=== PATIENT | male | born 1940 | race Hispanic/Latino ===

== ENCOUNTER 2017-08-10 02:06 | Inpatient (IN) | payer MEDICARE ==
[~2017-08-10] VITALS: Ht 162.6 cm; Wt 78.0 kg
[~2017-08-10 02:06] MED LIST: ASA81 MG PO; COUMADIN1 MG PO; FLAGYL500 MG PO; Z.0.COUMADIN5 MG PO; Z.0.ENALAPRIL MALEA2 PO; Z.0.GLYBURIDE2.5 MG PO; Z.0.IBUPROFEN600 MG PO; Z.0.LOVASTATIN10 MG PO
[2017-08-10 02:47] LABS: BASOPHILS # (AUTO) 0.1 (0.0-0.1); BASOPHILS % 0.3 % (0.0-1.0); EOSINOPHILS # (AUTO) 0.3 (0.0-0.4); EOSINOPHILS % 1.5 % (0.0-6.0); HEMATOCRIT 25.6 % (38.2-49.6); HEMOGLOBIN 8.5 g/dL (14.0-18.0); LYMPHOCYTES # (AUTO) 13.9 (1.0-3.2); LYMPHOCYTES % 75.6 % (18.0-39.1); MEAN CORPUSCULAR HEMOGLOBIN 29.6 pg (28-32); MEAN CORPUSCULAR HGB CONC 33.2 g/dL (31-35); MEAN CORPUSCULAR VOLUME 89.2 fL (81-99); MONOCYTES # (AUTO) 0.6 (0.2-0.8); MONOCYTES % 3.2 % (4.4-11.3); NEUTROPHILS # (AUTO) 3.5 (2.1-6.9); NEUTROPHILS % 19.3 % (38.7-80.0); PLATELET COUNT 170 x10e3/uL (140-360); RED BLOOD COUNT 2.87 x10e6/uL (4.3-5.7); RED CELL DISTRIBUTION WIDTH 14.2 % (11.7-14.4)
[2017-08-10 02:57] LABS: INR 1.99; PROTHROMBIN TIME 23.7 seconds (11.9-14.5)
[2017-08-10 02:58] LABS: PARTIAL THROMBOPLASTIN TIME 30.7 seconds (23.8-35.5)
[2017-08-10 03:03] LABS: ANISOCYTOSIS SLIGHT; LYMPHOCYTES % (MANUAL) 85 % (19-48); MONOCYTES % (MANUAL) 1 % (3.4-9.0); NEUTROPHILS % (MANUAL) 14 % (40-74); PLATELET ESTIMATE ADEQUATE; PLATELET MORPHOLOGY COMMENT NORMAL; RBC MORPHOLOGY COMMENT NORMAL
[2017-08-10 03:09] LABS: CREATINE KINASE MB 5.1 ng/mL (0.00-5.00)
[2017-08-10 03:16] LABS: ALBUMIN 3.5 g/dL (3.5-5.0); ALBUMIN/GLOBULIN RATIO 0.7 (0.8-2.0); ANION GAP 15.2 mmol/L (8-16); CALCIUM 8.3 mg/dL (8.4-10.2); CREATININE, SERUM 4.89 mg/dL (0.72-1.25); MAGNESIUM 1.9 MG/DL (1.3-2.1); POTASSIUM 4.2 mmol/L (3.5-5.1)
[2017-08-10 04:54] LABS: BILIRUBIN,URINE NEGATIVE (NEGATIVE); KETONES,URINE NEGATIVE (NEGATIVE); LEUKOCYTE ESTERASE ,URINE NEGATIVE (NEGATIVE); NITRITE,URINE NEGATIVE (NEGATIVE); URINE UROBILINOGEN 0.2 mg/dL (0.2 - 1)
[2017-08-10 04:59] LABS: PROTEIN,URINE DIPSTICK 2+ (NEGATIVE)
[2017-08-10 05:00] LABS: CLARITY,URINE CLEAR (CLEAR); COLOR,URINE YELLOW (YELLOW)
[2017-08-10 05:05] LABS: BACTERIA,URINE FEW /HPF; EPITHELIAL CELLS,URINE RARE /LPF; WBC,URINE (MAN) 0-5 /HPF (0-5)
--- NOTE | 2017-08-10 05:07 | Diagnostic Imaging Report ---
EXAM: CHEST 2 VIEWS, PA and lateral DATE: 08/10/2017 3:36 AM Time stamp on exam: 0413 hours INDICATION: Rash to the legs COMPARISON: PA and lateral view of the chest November 16, 2011 FINDINGS: LINES/TUBES: None LUNGS: No consolidations or edema. PLEURA: No effusions or pneumothorax. HEART AND MEDIASTINUM: Normal size and contour. BONES AND SOFT TISSUES: No acute findings. IMPRESSION: No acute thoracic abnormality. Signed by: Dr. Katharine Sesay M.D. on 08/10/2017 5:03 AM
[2017-08-10] MEDS ORDERED: ONDANSETRON HCL INJ 2 MG/ML VIAL IV PRN (05:30)
[2017-08-10] MEDS ORDERED: SODIUM CHLORIDE 0.9% 1000ML 1,000 ML IV ONE (05:30)
[2017-08-10] MEDS ORDERED: HYDROXYZINE HCL 25 MG TAB PO PRN (05:30)
[2017-08-10] MEDS ORDERED: FLOMAX0.4 MG PO (06:11)
[2017-08-10] MEDS ORDERED: PHYTONADIONE 10 MG/ML AMP SQ ONE (11:00)
[2017-08-10] MEDS ORDERED: DIATRIZOATE MEGL/DIATRIZOA SOD 120 ML BTL PO ONE (11:03)
--- NOTE | 2017-08-10 11:13 | Diagnostic Imaging Report ---
PROCEDURE:US RETROPERITONEAL ( KIDNEY ). COMPARISON:CT abdomen and pelvis 10/31/2016. INDICATIONS:Renal Failure TECHNIQUE: Francis-scale and color sonographic images of the bilateral kidneys and bladder where obtained in transverse and longitudinal planes. FINDINGS: RIGHT KIDNEY: 11.4 cm in length, cortical thickness 1.4 cm Cysts: None Solid masses: None Stones: None Hydronephrosis: None Echogenicity: Normal renal cortical echogenicity. LEFT KIDNEY: 10.4 cm in length, cortical thickness 1.5 cm. Cysts: None Solid masses: None Stones: None Hydronephrosis: None Echogenicity: Normal renal cortical echogenicity. Bladder: Unremarkable. Right and left ureteral jets are identified. Prostate: 3.3 x 2.5 x 4.3 cm, estimated volume 18.5 cc CONCLUSION: Unremarkable sonographic appearance of the kidneys. Dictated by: Nehemias Vail M.D. on 08/10/2017 at 11:21 Electronically approved by: Nehemias Vail M.D. on 08/10/2017 at 11:21
--- NOTE | 2017-08-10 12:35 | Diagnostic Imaging Report ---
PROCEDURE: CT ABDOMEN AND PELVIS WITHOUT CONTRAST TECHNIQUE: The abdomen and pelvis were scanned utilizing a multidetector helical scanner from the diaphragm to the lesser trochanter after the oral administration of Gastroview. No intravenous contrast was administered per referring physician request. Coronal and sagittal multiplanar reformations were obtained. COMPARISON: 10/31/16. INDICATIONS: R/O LYMPHOMA FINDINGS: ABSENCE OF INTRAVENOUS CONTRAST DECREASES SENSITIVITY FOR DETECTION OF FOCAL LESIONS AND VASCULAR PATHOLOGY. LOWER THORAX: Juxtapleural reticular opacities compatible with subsegmental atelectasis in the lung bases. No pleural or pericardial effusion. HEPATOBILIARY: Subcentimeter hypoattenuating lesion in hepatic segment 2, too small to further characterize though likely represent a small cyst. Similar lesion is noted in segment 3. Both are unchanged compared to the prior examination. No additional focal hepatic lesion or biliary ductal dilatation. The gallbladder is unremarkable. SPLEEN: No focal splenic lesion. The spleen is at the upper limits of normal in size, measuring 13 cm in craniocaudal span, not significantly changed. PANCREAS: No focal masses or ductal dilatation. ADRENALS: No adrenal nodules. KIDNEYS/URETERS: Nonspecific bilateral perinephric fat stranding, unchanged. No hydronephrosis, calculus, or gross mass lesion. PELVIC ORGANS/BLADDER: The prostate is enlarged, measuring 5.8 cm transversely, with mass effect upon the bladder base. PERITONEUM / RETROPERITONEUM: No ascites. No pneumoperitoneum. LYMPH NODES: No pelvic sidewall, retroperitoneal, or mesenteric lymphadenopathy. VESSELS: Limited evaluation without intravenous contrast. Atherosclerotic calcification of the abdominal aorta and major branch vessels without aneurysmal dilatation. 2 renal arteries supply each kidney. GI TRACT: The large bowel is notable for innumerable sigmoid diverticula without wall thickening or nasal colic inflammation. The appendix is normal. There is no small bowel dilatation to suggest obstruction. BONES AND SOFT TISSUES: Bilateral small fat-containing inguinal hernias. Subcutaneous gas and soft tissue stranding in the right lower quadrant subcutaneous region is likely a consequence of insulin or other subcutaneous medication administration. Mild bilateral gynecomastia. No osseous destructive lesions. Multilevel degenerative disc changes and degenerative facet arthropathy of the thoracolumbar spine. Bilateral sacroiliac joint fusion. IMPRESSION: No acute intra-abdominal or pelvic CT abnormalities. No abdominopelvic lymphadenopathy. Borderline nonspecific splenomegaly. The large bowel diverticulosis without evidence of diverticulitis. Atherosclerotic vascular disease. Prostatomegaly. Dictated by: Nehemias Vail M.D. on 08/10/2017 at 12:43 Electronically approved by: Nehemias Vail M.D. on 08/10/2017 at 12:43
[2017-08-10 13:16] LABS: CREATINE KINASE MB 4.1 ng/mL (0.00-5.00)
--- NOTE | 2017-08-10 13:36 | Consultation ---
DATE OF CONSULTATION: August 10, 2017 HISTORY OF PRESENT ILLNESS: A 76-year-old gentleman who is known to our nephrology service clinic patient, who has lost to followup. I saw him first at the [facility], has advanced kidney failure. Presented with a rash on both lower extremity, which is causing significant itch. Renal consulted for significantly elevated BUN, creatinine, and acidosis. White count is 18.3, hemoglobin is 8.5 with a bicarbonate 16, BUN 57, creatinine 5.89, CK 229, troponin-I 0.006. Urinalysis showed 6 to 10 rbc's, 0 to 5 wbc's, but white count is significantly elevated. He does have 85% lymphocytes and his lymphocyte percentage is significantly elevated at 75.6. REVIEW OF SYSTEMS: Patient denies fever, chills, chest pain, shortness of breath. Has a metallic taste in mouth. Very poor appetite. Feeling weak for the last several days. Daughter by bedside who is helping with history. SOCIAL HISTORY: Patient does not smoke or drink. Lives with his . PAST MEDICAL HISTORY: Significant for hypertension, diabetes, and chronic kidney disease stage 4. PHYSICAL EXAMINATION GENERAL: Awake, alert, lying supine. No apparent distress. VITALS: Blood pressure 167/75, pulse rate 73, afebrile. HEAD AND NECK: Cornea clear. Oral mucosa moist. Neck veins flat. LUNGS: Harsh vesicular breath sounds, but relatively clear. HEART: S1, S2 audible. ABDOMEN: Otherwise soft, nontender. SKIN: Lower extremity shows a fracture, which is reddish and some excoriation fisher. No clearcut petechiae purpura, but there are some petechiae noted or what looks like petechiae. No edema. IMPRESSION AND PLAN: Elevated white count, mostly lymphocytosis. This could be viral or this could be a lymphomatous process. I will obtain CT abdomen and pelvis. Advanced kidney failure with distal renal tubular acidosis, likely end-stage renal disease. Dialysis option has already been discussed with Dr. Beauchamp with him in the office. He did not followup thereafter. Discussed with daughter and she agrees. Plan on holding off on Coumadin for a couple of days. Will start p.o. bicarbonate, insert a Mathews, obtain 24-hour urine for creatinine clearance and proteins. Will request pathology to look at the peripheral smear. Will follow up on the CT scan once 24-hour urine creatinine clearance is completed and confirmed. He has got a poor GFR, will initiate dialysis. Job#: [id number] ANU
[2017-08-10] MEDS ORDERED: ETOMIDATE 2 MG/ML 10 ML INJ IV ONE (14:00)
[2017-08-10] MEDS ORDERED: SUCCINYLCHOLINE 200 MG/10 ML SYR IV ONE (14:00)
[2017-08-10 17:20] VITALS: BP 160/83
[2017-08-10] MEDS: SODIUM BICARBONATE 650 MG TAB PO SCH (17:31)
[2017-08-10 17:33] LABS: ALBUMIN 3.1 g/dL (3.5-5.0); BILIRUBIN,DIRECT 0.1 mg/dL (0.0-5.0); CREATININE, SERUM 4.52 mg/dL (0.72-1.25)
[2017-08-10 18:43] VITALS: BP 172/81
[2017-08-10 19:54] LABS: CREATINE KINASE MB 3.2 ng/mL (0.00-5.00)
[2017-08-10 20:27] VITALS: BP 172/81
[2017-08-10 20:59] VITALS: BP 146/76
[2017-08-10 21:40] VITALS: BP 146/76
[2017-08-11 01:41] VITALS: BP 144/76
[2017-08-11 06:25] LABS: BASOPHILS % 0.2 % (0.0-1.0); EOSINOPHILS # (AUTO) 0.2 (0.0-0.4); EOSINOPHILS % 1.7 % (0.0-6.0); LYMPHOCYTES # (AUTO) 10.3 (1.0-3.2); LYMPHOCYTES % 77.6 % (18.0-39.1); MEAN CORPUSCULAR HEMOGLOBIN 29.6 pg (28-32); MEAN CORPUSCULAR HGB CONC 33.3 g/dL (31-35); MEAN CORPUSCULAR VOLUME 88.9 fL (81-99); MONOCYTES # (AUTO) 0.3 (0.2-0.8); MONOCYTES % 2.6 % (4.4-11.3); NEUTROPHILS # (AUTO) 2.4 (2.1-6.9); NEUTROPHILS % 17.7 % (38.7-80.0); PLATELET COUNT 145 x10e3/uL (140-360); RED CELL DISTRIBUTION WIDTH 14.2 % (11.7-14.4)
[2017-08-11 06:56] LABS: ALBUMIN 2.9 g/dL (3.5-5.0); ALBUMIN/GLOBULIN RATIO 0.8 (0.8-2.0); ANION GAP 14.8 mmol/L (8-16); CALCIUM 8.2 mg/dL (8.4-10.2); CREATININE, SERUM 4.86 mg/dL (0.72-1.25); POTASSIUM 4.8 mmol/L (3.5-5.1)
[2017-08-11 07:15] VITALS: BP 144/77
[2017-08-11 07:25] LABS: EOSINOPHILS % (MANUAL) 2 % (0-7); LYMPHOCYTES % (MANUAL) 84 % (19-48); METAMYELOCYTES % (MANUAL) 1 % (0-0); MONOCYTES % (MANUAL) 3 % (3.4-9.0); NEUTROPHILS % (MANUAL) 10 % (40-74)
[2017-08-11 07:26] LABS: ANISOCYTOSIS SLIGHT; PLATELET ESTIMATE SLIGHTLY DECREASED; POIKILOCYTOSIS SLIGHT; RBC MORPHOLOGY COMMENT NORMAL
[2017-08-11 07:27] LABS: PLATELET MORPHOLOGY COMMENT NORMAL
[2017-08-11 08:00] VITALS: BP 144/75
[2017-08-11] MEDS: SODIUM BICARBONATE 650 MG TAB PO SCH ×2 (08:06→16:06)
--- NOTE | 2017-08-11 10:56 | Consultation ---
DATE OF CONSULTATION: August 11, 2017 CONSULTATION REQUESTED BY: Dr. Niesha Sommer PRIMARY CARE PHYSICIAN: Dr. Kei Cunha REASON FOR CONSULTATION: Lymphocytosis. Thank you very kindly, Dr. Sommer and Dr. Cunha, for letting me participate in the care of this very pleasant, 76-year-old male. I have interviewed the patient with assistance from his daughter for translation to Bots[place]an from [place]o. I reviewed his chart and examined the patient. Briefly, he was admitted with a skin rash of a few days' duration, which was really bothering him. In the emergency room, he was also noted to be anemic with elevated creatinine and, hence, was admitted to the hospital. The rash seems to be improving and not as bothersome. He has no history of fever. He did not offer any other specific complaints. However, on review of systems, he stated he is feeling a little bit weak. Also, he has lost a few pounds. He denied any history of bleeding. Denied any history of change in bowel habits. No history of significant skeletal pains. No headache, chest pain, shortness of breath. No urinary complaints. PAST MEDICAL HISTORY: Positive for hypertension, diabetes, hyperlipidemia. The patient also was hospitalized in 2011 with bilateral pulmonary emboli. Venous Doppler studies were negative. He has been on anticoagulation and has been on warfarin ever since. He also was admitted with possible GI bleed a couple of years back and had a colonoscopy where he was found to have polyps. He was told that his renal function was not normal about 4 months back and has been following with nephrology on a regular basis. No history of recurrent infections. PERSONAL HISTORY: He is a nonsmoker. Only drinks 1 or 2 beers occasionally. FAMILY HISTORY: Denied any history of significant medical problems in the family. OCCUPATIONAL HISTORY: He is retired. He worked in the [employer]. PHYSICAL EXAMINATION GENERAL: A moderately obese, well-developed male in no distress at rest. VITAL SIGNS: As recorded in the chart. HEENT: Conjunctivae are pale. There is no icterus. There is no palpable peripheral adenopathy. There is no neck vein distention. LUNGS: Clinically clear. HEART: Heart size appeared within normal limits. Rhythm was regular. ABDOMEN: Obese without palpable visceromegaly. No ascites was noted. EXTREMITIES: Free of edema. There was a rash with scratch fisher mostly on his back and on his legs. It appeared to be fading. No areas of bone tenderness were noted. No focal neurological deficit was noted. LABORATORY STUDIES: Significant for lymphocytosis with admission white count around 18,000, but it has decreased. Hemoglobin in the 8-g range (he has not had blood transfusion at any time). Review of older blood counts revealed that he had lymphocytosis at least in October 2016, but his CBC was normal in September 2013. His globulins are also mildly elevated. IMPRESSION 1. Lymphocytosis, at least present for nearly a year suggesting the possibility of a lymphoproliferative disorder. Will check flow cytometry to confirm. 2. Anemia with normal mean corpuscular volume and red cell distribution width suggesting anemia of chronic disease, possibly related to renal insufficiency. 3. Elevated globulins to be further evaluated with protein electrophoresis and reflex to immunoelectrophoresis. Thank you very kindly for letting me participate in his care. I will follow the patient with you. Job#: [id number]
[2017-08-11 12:00] VITALS: BP 141/74
[2017-08-11 13:44] LABS: CREATININE,URINE RANDOM 58.66 mg/dL (63-166); TOTAL PROTEIN, URINE 101.2 mg/dL (1-14)
[2017-08-11 13:48] LABS: TOTAL PROTEIN 24HR, URINE 2074.6 mg/24hr (50-100)
[2017-08-11 16:00] VITALS: BP 151/77
[2017-08-11 20:00] VITALS: BP 144/75
[2017-08-12] VITALS (7 sets, daily range): BP systolic 133–144; BP diastolic 66–79
[2017-08-12] MEDS: SODIUM BICARBONATE 650 MG TAB PO SCH ×2 (08:20→16:38)
[2017-08-12 10:40] LABS: ANION GAP 12.9 mmol/L (8-16); CREATININE, SERUM 4.88 mg/dL (0.72-1.25); POTASSIUM 3.9 mmol/L (3.5-5.1)
[2017-08-13] VITALS: BP 136/79
[2017-08-13 02:02] VITALS: BP 135/83
[2017-08-13 04:00] VITALS: BP 140/72
[2017-08-13 06:29] LABS: BASOPHILS % 0.2 % (0.0-1.0); EOSINOPHILS # (AUTO) 0.2 (0.0-0.4); EOSINOPHILS % 1.8 % (0.0-6.0); HEMATOCRIT 24.5 % (38.2-49.6); HEMOGLOBIN 8.2 g/dL (14.0-18.0); LYMPHOCYTES % 73.1 % (18.0-39.1); MEAN CORPUSCULAR HEMOGLOBIN 29.6 pg (28-32); MEAN CORPUSCULAR HGB CONC 33.5 g/dL (31-35); MEAN CORPUSCULAR VOLUME 88.4 fL (81-99); MONOCYTES # (AUTO) 0.4 (0.2-0.8); MONOCYTES % 2.7 % (4.4-11.3); NEUTROPHILS % 22.1 % (38.7-80.0); PLATELET COUNT 151 x10e3/uL (140-360); RED BLOOD COUNT 2.77 x10e6/uL (4.3-5.7); RED CELL DISTRIBUTION WIDTH 13.8 % (11.7-14.4)
[2017-08-13 06:59] LABS: ALBUMIN 2.9 g/dL (3.5-5.0); ALBUMIN/GLOBULIN RATIO 0.8 (0.8-2.0); ANION GAP 13.9 mmol/L (8-16); CALCIUM 8.2 mg/dL (8.4-10.2); CREATININE, SERUM 5.01 mg/dL (0.72-1.25); MAGNESIUM 1.8 MG/DL (1.3-2.1); POTASSIUM 3.9 mmol/L (3.5-5.1)
[2017-08-13 08:00] LABS: BLAST CELLS % MANUAL 1; EOSINOPHILS % (MANUAL) 2 % (0-7); LYMPHOCYTES % (MANUAL) 78 % (19-48); MONOCYTES % (MANUAL) 2 % (3.4-9.0); NEUTROPHILS % (MANUAL) 16 % (40-74)
[2017-08-13 08:07] LABS: ANISOCYTOSIS SLIGHT; HYPOCHROMASIA SLIGHT; PLATELET ESTIMATE ADEQUATE; PLATELET MORPHOLOGY COMMENT NORMAL; RBC MORPHOLOGY COMMENT NORMAL
[2017-08-13 08:38] VITALS: BP 83/55
[2017-08-13] MEDS: SODIUM BICARBONATE 650 MG TAB PO SCH (10:56)
[2017-08-13 12:13] VITALS: BP 142/74
[2017-08-13 15:55] VITALS: BP 147/74
== END 2017-08-13 16:56 | disposition home or self-care (01) | DRG 840 ==
LOC: ER 02:06 → ERHOLD 10:08 → MED/SURG2 17:40
PROVIDERS: ADMIT Internal Medicine; ATTEND Internal Medicine
DX: C91.10 Chronic lymphocytic leukemia of B-cell type not having achieved remission (principal); N18.6 End stage renal disease; N17.9 Acute kidney failure, unspecified; E11.22 Type 2 diabetes mellitus with diabetic chronic kidney disease; D63.1 Anemia in chronic kidney disease; N25.89 Other disorders resulting from impaired renal tubular function; I12.0 Hypertensive chronic kidney disease with stage 5 chronic kidney disease or end stage renal disease; Z99.2 Dependence on renal dialysis; L29.9 Pruritus, unspecified; Z86.711 Personal history of pulmonary embolism; Z79.01 Long term (current) use of anticoagulants
CPT/HCPCS: 36415; 71046; 74176; 76770; 80048; 80053; 80076; 81001; 81050; 82550; 82553; 82575; 82728; 83735; 84100; 84156; 84165; 84484; 85025; 85610; 85730; 86334; 86850; 86900; 87040; 87086; 87400; 88184; 88185; 88187; 99284; J3410; J3430; J7030; Q9963

== ENCOUNTER 2018-01-31 20:52 | Emergency (ER) | payer MEDICARE ==
[~2018-01-31] VITALS: Ht 162.6 cm; Wt 78.0 kg
[~2018-01-31 20:52] MED LIST changes: +FLOMAX0.4 MG PO
[2018-01-31 21:42] LABS: BASOPHILS # (AUTO) 0.1 (0.0-0.1); BASOPHILS % 0.3 % (0.0-1.0); EOSINOPHILS # (AUTO) 0.2 (0.0-0.4); EOSINOPHILS % 1.1 % (0.0-6.0); HEMATOCRIT 34.1 % (38.2-49.6); HEMOGLOBIN 11.2 g/dL (14.0-18.0); LYMPHOCYTES # (AUTO) 13.9 (1.0-3.2); LYMPHOCYTES % 74.5 % (18.0-39.1); MEAN CORPUSCULAR HEMOGLOBIN 28.8 pg (28-32); MEAN CORPUSCULAR HGB CONC 32.8 g/dL (31-35); MEAN CORPUSCULAR VOLUME 87.7 fL (81-99); MONOCYTES # (AUTO) 0.5 (0.2-0.8); MONOCYTES % 2.5 % (4.4-11.3); NEUTROPHILS % 21.3 % (38.7-80.0); PLATELET COUNT 156 x10e3/uL (140-360); RED BLOOD COUNT 3.89 x10e6/uL (4.3-5.7); RED CELL DISTRIBUTION WIDTH 18.9 % (11.7-14.4)
[2018-01-31 21:52] LABS: INR 1.08; PROTHROMBIN TIME 13.2 seconds (11.9-14.5)
[2018-01-31 21:53] LABS: PARTIAL THROMBOPLASTIN TIME 24.1 seconds (23.8-35.5)
[2018-01-31 22:01] LABS: ALANINE AMINOTRANSFERASE 45 IU/L (0-55); ALBUMIN 3.5 g/dL (3.5-5.0); ALBUMIN/GLOBULIN RATIO 0.9 (0.8-2.0); ALKALINE PHOSPHATASE 72 IU/L (40-150); ANION GAP 19.3 mmol/L (8-16); BLOOD UREA NITROGEN 50 mg/dL (7-26); BUN/CREATININE RATIO 5 (6-25); CALCIUM 8.7 mg/dL (8.4-10.2); CARBON DIOXIDE 24 mmol/L (22-29); CHLORIDE 99 mmol/L (98-107); CREATINE KINASE 75 IU/L (30-200); CREATININE, SERUM 9.66 mg/dL (0.72-1.25); EST GLOMERULAR FILTRATION RATE 5 ML/MIN (60-); GLUCOSE 138 mg/dL (74-118); POTASSIUM 4.3 mmol/L (3.5-5.1); SODIUM 138 mmol/L (136-145)
--- NOTE | 2018-01-31 23:01 | Diagnostic Imaging Report ---
EXAM: CHEST 2 VIEWS, PA and lateral INDICATION: Hypertension, weakness COMPARISON: PA and lateral view of the chest August 10, 2017 FINDINGS: LINES/TUBES: Interval placement of right internal jugular vein tunneled hemodialysis catheter with the tip at the expected location of the atrial caval junction. LUNGS: No consolidations or edema. PLEURA: No effusions or pneumothorax. HEART AND MEDIASTINUM: Normal size and contour. BONES AND SOFT TISSUES: No acute findings. IMPRESSION: No acute thoracic abnormality. Signed by: Dr. Katharine Sesay M.D. on 01/31/2018 10:58 PM
[2018-01-31 23:12] LABS: CLARITY,URINE CLEAR (CLEAR); COLOR,URINE YELLOW (YELLOW); LEUKOCYTE ESTERASE ,URINE NEGATIVE (NEGATIVE); NITRITE,URINE NEGATIVE (NEGATIVE); PROTEIN,URINE DIPSTICK 2+ (NEGATIVE)
[2018-01-31 23:13] LABS: BACTERIA,URINE RARE /HPF; BILIRUBIN,URINE NEGATIVE (NEGATIVE); EPITHELIAL CELLS,URINE RARE /LPF; KETONES,URINE NEGATIVE (NEGATIVE); MUCUS,URINE RARE (RARE); URINE UROBILINOGEN 0.2 mg/dL (0.2 - 1)
[2018-01-31] MEDS ORDERED: CEFTRIAXONE SOD 1 GM VIAL IV STA (23:25)
[2018-01-31 23:51] VITALS: BP 149/77
== END 2018-02-01 00:11 | disposition home or self-care (01) ==
LOC: ER 20:52
DX: R53.1 Weakness (principal); N30.91 Cystitis, unspecified with hematuria; I10 Essential (primary) hypertension
CPT/HCPCS: 36415; 71046; 80053; 81001; 82550; 82553; 82948; 83735; 84484; 85025; 85610; 85730; 87086; 93005; 99283; J0696

== ENCOUNTER → 2019-01-02 | Outpatient (CLI) | payer MEDICARE ==
[~2019-01-02] MED LIST changes: +IOPAMIDOL 370 MG/ML 200 ML INFUS..BTL INJ ONE; +PREDNISONE10 MG PO; +SODIUM CHLORIDE 0.9% 50ML 50 ML ONE
[2019-01-02 11:40] LABS: CREATININE, SERUM 9.64 mg/dL (0.72-1.25)
--- NOTE | 2019-01-02 12:59 | Diagnostic Imaging Report ---
ADDENDUM #1 ADDENDUM: There is bilateral gynecomastia. Signed by: Dr. Paola Haney MD on 01/02/2019 2:46 PM ORIGINAL REPORT EXAM: CT Chest and Abdomen with contrast INDICATION: Chronic lymphocytic leukemia, anemia. COMPARISON: Report from CT abdomen/pelvis dated 10/31/2016, the images were not available for review at the time of this dictation. TECHNIQUE: Chest and abdomen was scanned utilizing a multidetector helical scanner from the lung apex to the iliac crests after administration of IV contrast. Coronal and sagittal reformations were obtained. Routine protocol was performed. IV CONTRAST: 100 mL of Isovue 370 RADIATION DOSE: Total DLP: 459.5 mGy*cm Dose modulation, iterative reconstruction, and/or weight based adjustment of the mA/kV was utilized to reduce the radiation dose to as low as reasonably achievable. COMPLICATIONS: None FINDINGS: LINES/ TUBES: None. LUNGS AND AIRWAYS: The central airways are patent. Diffuse mild bronchial wall thickening. There is mild biapical pleural-parenchymal opacity, suggestive of prior granulomatous disease. Mild patchy groundglass opacity in the left lower lobe on series 4, image 81 may be infectious or inflammatory. Minimal dependent atelectasis. Scattered tiny bilateral pulmonary nodules, for example a 2 mm subpleural nodule left upper lobe on image 19 and 3 mm nodule opacity along the right major fissure on image 79. There is a 5 mm groundglass nodular opacity in the right lower lobe on image 61. Punctate 2 mm solid nodule in the right lower lobe on image 62. PLEURA: The pleural spaces are clear. HEART AND MEDIASTINUM: Limited evaluation of the thyroid gland secondary to streak artifact. Possible 0.9 cm right thyroid nodule. No mediastinal, hilar or axillary lymphadenopathy. Nonspecific mediastinal lymph nodes, measuring up to 0.7 cm short axis in the right paratracheal region and 0.6 cm in the prevascular region. Nonspecific small right supraclavicular lymph nodes measuring up to 0.5 cm. Mild cardiomegaly. Scattered coronary atherosclerosis. HEPATOBILIARY: Left hepatic lobe cyst. No biliary ductal dilation. The gallbladder is unremarkable. SPLEEN: Mild splenomegaly measuring 14 cm. PANCREAS: No focal masses or ductal dilatation. ADRENALS: No adrenal nodules KIDNEYS/URETERS: Atrophic bilateral kidneys. Nonspecific bilateral perirenal stranding. There is soft tissue fullness versus dilation of the left renal pelvis, measuring up to 1.8 cm on series 2, image 69. GI TRACT: Scattered colonic diverticulosis. No evidence of wall thickening or distension. PELVIC ORGANS/BLADDER: Unremarkable. LYMPH NODES: Mildly prominent retroperitoneal lymph nodes, for example measuring up to 0.8 cm on the left on series 2, image 66. Mildly prominent right common iliac artery lymph node, measuring up to 0.8 cm on image 85. VESSELS: Scattered atherosclerotic calcifications in the abdominal aorta and branch vessels. PERITONEUM / RETROPERITONEUM: No free air or fluid. BONES/SOFT TISSUES: No acute osseous abnormality IMPRESSION: Prominent mediastinal and upper abdominal subcentimeter lymph nodes. Splenomegaly. Findings may reflect malignancy in this patient with leukemia. Small bilateral pulmonary nodules, measuring up to 5 mm in the right lower lobe. A follow-up chest CT may be considered in 12 months. Possible 0.9 cm right thyroid nodule. Thyroid ultrasound may be considered for further evaluation. Soft tissue fullness versus dilation of the left renal pelvis, measuring up to 1.8 cm. Suggest hematuria protocol CT for further evaluation. Signed by: Dr. Paola Haney MD on 01/02/2019 12:56 PM
== END ==
LOC: CT 10:47
PROVIDERS: ATTEND Internal Medicine Hematology & Oncology
DX: C91.10 Chronic lymphocytic leukemia of B-cell type not having achieved remission (principal); D63.1 Anemia in chronic kidney disease; D69.6 Thrombocytopenia, unspecified
CPT/HCPCS: 36415; 71260; 74160; 82565; 84520; Q9967

== ENCOUNTER 2019-01-03 04:39 | Inpatient (IN) | payer MEDICARE ==
[~2019-01-03] VITALS: Ht 162.6 cm; Wt 68.9 kg
[2019-01-03] VITALS (15 sets, daily range): BP systolic 84–132; BP diastolic 50–87
[~2019-01-03 04:39] MED LIST changes: -IOPAMIDOL 370 MG/ML 200 ML INFUS..BTL INJ ONE; -PREDNISONE10 MG PO; -SODIUM CHLORIDE 0.9% 50ML 50 ML ONE
[2019-01-03] MEDS ORDERED: FAMOTIDINE 20 MG/2 ML VIAL IV STA (04:42)
--- OUTSIDE RECORDS SUMMARY | 2019-01-03 04:42 | XMS REPORT | Clinical Summary ---
Author Author [facility] Address Unknown Phone Unavailable Care Team Providers Care Manufacturing Quality Manager Name Role Phone Kei Cunha PCP Allergies No Known Allergies Medications No known medications Active Problems Problem Noted Date ESRD (end stage renal disease) on dialysis 12/31/2017 Social History Date Tobacco Use Types Packs/Day Years Used Never Smoker Smokeless Tobacco: Never Used Alcohol Use Drinks/Week oz/Week Comments Yes Sex Assigned at Date Recorded Not on file Industry Job Start Date Occupation Not on file Not on file Not on file Travel End Travel History Travel Start No recent travel history available. Last Filed Vital Signs Not on file Plan of Treatment Not on file Procedures Comments Procedure Name Priority Date/Time Associated Diagnosis RHYTHM STRIP - SCAN 01/04/2018 8:30 AM CDT after 01/02/2018 Results * RHYTHM STRIP - SCAN (01/04/2018 8:30 AM CDT) Narrative Performed At after 01/02/2018 Insurance Payer Benefit Subscriber ID Type Phone Address Plan / Group [employer] CIGNA xxxxxxxxxxx [facility] [employer] Contracted ALL Advance Directives For more information, please contact: [facility] [address] [place] [address] Date Inactivated Comments Code Status Date Activated 12/31/2017 9:35 PM Full Code 12/31/2017 11:29 AM This code status was determined by: Patient
[2019-01-03] MEDS ORDERED: DIPHENHYDRAMINE HCL INJ 50 MG/ML VIAL IV ONE (04:45)
[2019-01-03] MEDS ORDERED: METHYLPREDNISOLONE SOD SUCC 125 MG/2ML VIAL IV ONE (04:45)
[2019-01-03] MEDS ORDERED: EPINEPHRINE 0.3 MG/0.3 ML PEN.INJCTR IM STA (04:47)
[2019-01-03] MEDS ORDERED: EPINEPHRINE HCL 1:1000 1ML 1 MG/ML AMP ONE (04:57)
--- NOTE | 2019-01-03 05:21 | Diagnostic Imaging Report ---
EXAMINATION: CHEST SINGLE (PORTABLE) INDICATION: ^sob ^Y COMPARISON: Chest CT dated 01/02/2019 FINDINGS: AP view TUBES and LINES: None. LUNGS: Lungs are well inflated. Pulmonary vascular congestion and mild interstitial edema. PLEURA: No significant pleural effusion or pneumothorax. HEART AND MEDIASTINUM: The cardiac silhouette is mildly enlarged. BONES AND SOFT TISSUES: No acute osseous lesion. Mildly elevated right hemidiaphragm. UPPER ABDOMEN: No free air under the diaphragm. IMPRESSION: Mildly enlarged cardiac silhouette, central vascular congestion, and mild interstitial edema. Signed by: Dr. Zhao Esqueda MD on 01/03/2019 5:18 AM
[2019-01-03 05:25] LABS: BASOPHILS # (AUTO) 0.1 (0.0-0.1); BASOPHILS % 0.3 % (0.0-1.0); EOSINOPHILS # (AUTO) 0.2 (0.0-0.4); EOSINOPHILS % 0.6 % (0.0-6.0); HEMATOCRIT 25.1 % (38.2-49.6); LYMPHOCYTES # (AUTO) 24.6 (1.0-3.2); LYMPHOCYTES % 83.6 % (18.0-39.1); MEAN CORPUSCULAR HEMOGLOBIN 28.8 pg (28-32); MEAN CORPUSCULAR HGB CONC 31.9 g/dL (31-35); MEAN CORPUSCULAR VOLUME 90.3 fL (81-99); MONOCYTES # (AUTO) 0.9 (0.2-0.8); MONOCYTES % 3.2 % (4.4-11.3); NEUTROPHILS # (AUTO) 3.6 (2.1-6.9); PLATELET COUNT 213 x10e3/uL (140-360); RED BLOOD COUNT 2.78 x10e6/uL (4.3-5.7); RED CELL DISTRIBUTION WIDTH 17.1 % (11.7-14.4)
[2019-01-03 05:28] LABS: INR 0.92; PARTIAL THROMBOPLASTIN TIME 22.5 seconds (23.8-35.5); PROTHROMBIN TIME 12.8 seconds (11.9-14.5)
[2019-01-03 05:36] LABS: ALBUMIN 3.3 g/dL (3.5-5.0); ANION GAP 15.5 mmol/L (8-16); CALCIUM 8.6 mg/dL (8.4-10.2); CREATININE, SERUM 4.93 mg/dL (0.72-1.25); POTASSIUM 3.5 mmol/L (3.5-5.1)
[2019-01-03 05:48] LABS: CREATINE KINASE MB 1.7 ng/mL (0-5.0)
[2019-01-03] MEDS ORDERED: PROPOFOL IV EMULSION 10 MG/ML 20 ML VIAL ONE (05:58)
[2019-01-03] MEDS ORDERED: PROPOFOL IV EMULSION 10MG/ML 100 ML ONE (06:00)
[2019-01-03] MEDS: PROPOFOL IV EMULSION 10MG/ML 100 ML IV PRN ×3 (06:05→23:26)
--- NOTE | 2019-01-03 06:23 | NUR ---
decision was made to intubate due to rapid increase in angioedema since first presentation to ed at 0550 etomidate 20mg iv-0554 vecoronium 6mg iv-0554 etomidate 20mg iv-0558 vecoronium 10mg iv-0559 rsi sequence achieved at 0559 7 /2 23 at the lip respiratory getting verbal orders from dr wise for vent settings
[2019-01-03] MEDS ORDERED: SODIUM CHLORIDE 0.9% 1000ML 1,000 ML IV SCH (06:43)
--- NOTE | 2019-01-03 06:54 | Diagnostic Imaging Report ---
EXAMINATION: CHEST SINGLE (PORTABLE) INDICATION: ^post intubation ^[id number] ^0612 ^Y COMPARISON: Same day at 4:57 AM FINDINGS: AP view TUBES and LINES: Status post intubation. The tip of endotracheal tube is approximately 4 cm above sandra. LUNGS: Lungs are well inflated. Central vascular congestion. PLEURA: No pleural effusion or pneumothorax. HEART AND MEDIASTINUM: The cardiomediastinal silhouette is unremarkable. BONES AND SOFT TISSUES: No acute osseous lesion. Soft tissues are unremarkable. UPPER ABDOMEN: No free air under the diaphragm. IMPRESSION: Status post intubation. Central vascular congestion. Signed by: Dr. Zhao Esqueda MD on 01/03/2019 6:51 AM
--- OUTSIDE RECORDS SUMMARY | 2019-01-03 06:56 | XMS REPORT | Clinical Summary ---
Author Author [facility] Address Unknown Phone Unavailable Care Team Providers Care Fiberglass Ski Maker Name Role Phone Kei Cunha PCP Allergies [...] Plan / Group [employer] CIGNA xxxxxxxxxxx [facility] [employer] Contracted ALL Advance Directives For more information, please contact: [facility] [address] [place] [address] Date Inactivated Comments Code Status Date Activated 12/31/2017 9:35 PM Full Code 12/31/2017 11:29 AM This code status was determined by: Patient
--- NOTE | 2019-01-03 06:57 | NUR ---
report given to lynne mcgregor in full
--- NOTE | 2019-01-03 07:08 | NUR ---
assumed care of pt. Daughter is at bedside, daughter has signed consent for blood products and hemodialysis.
--- NOTE | 2019-01-03 07:42 | NUR ---
Report to YAMINI Bundy in ICU
[2019-01-03] MEDS ORDERED: DEXTROSE 50% SYRINGE 50 ML IV PRN (09:00)
[2019-01-03] MEDS ORDERED: FAMOTIDINE 20 MG/2 ML VIAL IV SCH ×2 (09:00)
[2019-01-03] MEDS ORDERED: DIPHENHYDRAMINE HCL ELIX 12.5 MG/5 ML UDC NG PRN (09:00)
[2019-01-03] MEDS: ALBUTEROL/IPRATROPIUM 3 ML NEB NEB SCH ×3 (09:20→19:15)
[2019-01-03] MEDS ORDERED: METHYLPREDNISOLONE SOD SUCC 40 MG/ML VIAL 1ML IV SCH (09:30)
[2019-01-03 09:59] LABS: ABG HCO3 31 mmol/L (23-28); ABG PCO2 42 mmHg (41-51); ABG PH 7.47 (7.31-7.41); ABG PO2 135 mmHg (80-105)
[2019-01-03] MEDS: HEPARIN SOD (PORCINE) 5,000 UNIT/ML VIAL SC SCH ×2 (10:54→21:04)
[2019-01-03 11:57] LABS: BLAST CELLS % MANUAL 3; LYMPHOCYTES % (MANUAL) 80 % (19-48); MONOCYTES % (MANUAL) 4 % (3.4-9.0); NEUTROPHILS % (MANUAL) 13 % (40-74)
[2019-01-03 12:00] LABS: HYPOCHROMASIA SLIGHT; PLATELET ESTIMATE ADEQUATE; PLATELET MORPHOLOGY COMMENT NORMAL; RBC MORPHOLOGY COMMENT NORMAL
[2019-01-03] MEDS: INSULIN LISPRO 100 UNIT/1 ML 3ML VIAL SQ SCH ×3 (14:54→20:56)
--- NOTE | 2019-01-03 15:03 | Consultation ---
DATE OF CONSULTATION: Pulmonary Consultation The patient of Dr. Cunha, Dr. Saleh, Dr. Cardozo, and Dr. Jean. 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 He was given a prescription for Firazyr, a bradykinin antagonist, but has been unable to obtain it from the pharmacy. He had three episodes since his diagnosis in September of this year. 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 Nonsmoker. No alcohol use. PAST SURGICAL HISTORY: He has an AV fistula surgery in the left arm. FAMILY HISTORY: Noncontributory. MEDICATIONS: Include Zantac. He is waiting for Firazyr. PHYSICAL EXAMINATION: GENERAL: He is a well-developed white male, intubated. Facial swelling is noted. VITAL SIGNS: Temperature 97.6, pulse 90, respirations 16 on ventilator support, and blood pressure 154/84. HEENT: Tongue, facial, and lip swelling. LUNGS: Few rhonchi. HEART: Regular rhythm. ABDOMEN: Nontender. EXTREMITIES: AV fistula on left arm. IMAGING: Chest x-ray is reported showing volume overload, possibly negative pressure pulmonary edema. I will discuss the case with Dr. Saleh. Plan now is to continue with mechanical ventilator support. Administer fresh frozen plasma. Wean from mechanical ventilator support once swelling has resolved, will continue support. The patient has a remote history of pulmonary emboli. We will begin prophylactic therapy with subcutaneous heparin. The patient has end-stage renal disease, he was dialyzed yesterday. We will also add prophylaxis with Pepcid for peptic ulcer disease, moderate dose steroids, NG tube. CT of the abdomen was obtained on the third revealed bronchial wall thickening, scars suggestive of old granulomatous disease, adenopathy, coronary artery disease, and splenomegaly. We will check sputum. Thank you for this kind referral. MD EVA Henson/MODL /[id number]
[2019-01-03] MEDS ORDERED: ETOMIDATE 40 MG/ 20ML VIAL IV ONE (18:31)
[2019-01-03] MEDS ORDERED: WATER STERILE 10 ML VIAL ONE (18:31)
[2019-01-03] MEDS ORDERED: VECURONIUM BROMIDE FOR INJ 20 MG VIAL ONE (18:31)
[2019-01-03] MEDS: FAMOTIDINE 20 MG/2 ML VIAL IV SCH (18:57)
--- NOTE | 2019-01-03 19:54 | Consultation ---
DATE OF CONSULTATION: 01/03/2019 HISTORY OF PRESENT ILLNESS: A 78-year-old gentleman with multiple medical issues including CLL with both mediastinal and pulmonary lesions, followed by Dr. Saleh as an outpatient. He also has underlying end-stage renal disease, admitted with angioneurotic edema. Currently intubated, sedated, unable to get any history or review of systems. Family by bedside. Discussed with bedside RN. LABS: Show white count 29,000. He has a history of CLL, hemoglobin of 8, and platelets of 213. Chemistries; potassium 3.5 and creatinine 4.9. Troponin I is 0.011. ALLERGIES: NO APPARENT DRUG ALLERGIES. CURRENT MEDICATIONS: Please see MAR for details. He has received methylprednisolone IV x1, currently on methylprednisolone 40 IV q.12, heparin 5000 subcu q.12, received epinephrine 1:1000 one mL once on a stat basis intramuscular. He is on diphenhydramine 25 mg q.6. He is on albuterol and Atrovent nebulizer, also normal saline at 50 mL an hour, which I am going to stop at this point in time. PHYSICAL EXAMINATION: GENERAL: The patient is lying supine as described above, intubated. VITAL SIGNS: Blood pressure is 126/56, pulse rate 77, and afebrile. HEENT: Pupils reactive. Orally intubated. LUNGS: Harsh vesicular breath sounds. Occasional rhonchi. No rales. HEART: S1 and S2 audible. ABDOMEN: Otherwise soft and nontender. EXTREMITIES: Lower extremity, no edema. IMPRESSION: End-stage renal disease, acute respiratory failure, and hypoxia. No acute indications for dialysis, received his dialysis yesterday. Has underlying CLL, extremely poor prognosis. Discussed with family member and bedside RN. Dialysis nurse called and message left for dialysis tomorrow morning. Blood pressure appears stable. Niesha Sommer MD SAK/MODL /[id number]
[2019-01-03] MEDS: METHYLPREDNISOLONE SOD SUCC 40 MG/ML VIAL 1ML IV SCH (20:59)
[2019-01-04] VITALS (24 sets, daily range): BP systolic 85–155; BP diastolic 43–69
[2019-01-04] MEDS: PROPOFOL IV EMULSION 10MG/ML 100 ML IV PRN ×5 (00:44→04:16)
[2019-01-04] MEDS: ALBUTEROL/IPRATROPIUM 3 ML NEB NEB SCH ×4 (03:00→18:50)
[2019-01-04 05:04] LABS: BASOPHILS % 0.1 % (0.0-1.0); HEMATOCRIT 22.3 % (38.2-49.6); LYMPHOCYTES # (AUTO) 19.2 (1.0-3.2); LYMPHOCYTES % 73.1 % (18.0-39.1); MEAN CORPUSCULAR HEMOGLOBIN 28.5 pg (28-32); MEAN CORPUSCULAR HGB CONC 30.9 g/dL (31-35); MEAN CORPUSCULAR VOLUME 92.1 fL (81-99); MONOCYTES # (AUTO) 0.6 (0.2-0.8); MONOCYTES % 2.4 % (4.4-11.3); NEUTROPHILS # (AUTO) 6.3 (2.1-6.9); NEUTROPHILS % 24.1 % (38.7-80.0); PLATELET COUNT 137 x10e3/uL (140-360); RED BLOOD COUNT 2.42 x10e6/uL (4.3-5.7); RED CELL DISTRIBUTION WIDTH 18.3 % (11.7-14.4)
--- NOTE | 2019-01-04 05:06 | History and Physical ---
REASON FOR ADMISSION: 1. Angioedema. 2. Respiratory failure, status post intubation. HISTORY OF PRESENT ILLNESS: The patient is a gentleman with a history of end-stage renal disease and CLL. He sees Dr. Saleh. He has a history of intermittent angioedema, where he has EpiPens at home, where he woke up this morning with a sudden onset of angioedema of the face, lips, and tongue, where family unfortunately and in the emergency room, he was noticed to have significant swelling and despite given some epinephrine and the appropriate medications. He was electively intubated for airway control. PAST MEDICAL HISTORY: Significant for end-stage renal disease, CLL, chronic anemia from chronic kidney disease. MEDICATIONS: See SEP. ALLERGIES: SEE SEP. SOCIAL HISTORY: Nonsmoker. Nondrinker. Lives at home with his family. FAMILY HISTORY: Hypertension. PHYSICAL EXAMINATION: VITAL SIGNS: Temperature 98.6, pulse 84, blood pressure I36/72, sats 98%. GENERAL: He is lying in bed and appears comfortable and states . There is no stridor evident. CARDIOVASCULAR: Regular rate and rhythm. LUNGS: Clear to auscultation bilaterally. ABDOMEN: Good bowel sounds. Soft, nontender. EXTREMITIES: No clubbing or cyanosis. NEUROLOGIC: Nonfocal. ASSESSMENT AND PLAN: 1. EGD swelling. 2. Acute respiratory failure. The patient is being currently intubated on airway control. We will consult Dr. Holden for vent management. 3. End-stage renal disease. We will consult his renal doctors. 4. Chronic lymphocytic leukemia . MD MARIA D Best/ANTON /[id number]
[2019-01-04 05:07] LABS: HEMOGLOBIN 6.9 g/dL (14.0-18.0)
[2019-01-04 05:30] LABS: ALBUMIN 2.9 g/dL (3.5-5.0); ALBUMIN/GLOBULIN RATIO 0.9 (0.8-2.0); ANION GAP 16.4 mmol/L (8-16); CALCIUM 8.2 mg/dL (8.4-10.2); CREATININE, SERUM 6.48 mg/dL (0.72-1.25); POTASSIUM 4.4 mmol/L (3.5-5.1)
--- NOTE | 2019-01-04 05:47 | Diagnostic Imaging Report ---
EXAMINATION: CHEST SINGLE (PORTABLE) INDICATION: ^INTUBATED PT ^[id number] ^0415 ^Y COMPARISON: 01/03/2019 FINDINGS: AP view TUBES and LINES: Stable endotracheal tube. LUNGS: Low lung volumes. Central vascular congestion. No definite focal consolidation. PLEURA: No pleural effusion or pneumothorax. HEART AND MEDIASTINUM: The cardiomediastinal silhouette is enlarged. BONES AND SOFT TISSUES: No acute osseous lesion. Soft tissues are unremarkable. UPPER ABDOMEN: No free air under the diaphragm. IMPRESSION: Enlarged cardiomediastinal silhouette and central vascular congestion, accentuated by low lung volumes. Signed by: Dr. Zhao Esqueda MD on 01/04/2019 5:44 AM
[2019-01-04] MEDS: FAMOTIDINE 20 MG/2 ML VIAL IV SCH ×2 (05:52→17:46)
[2019-01-04] MEDS: INSULIN LISPRO 100 UNIT/1 ML 3ML VIAL SQ SCH ×4 (07:30→21:37)
[2019-01-04] MEDS: METHYLPREDNISOLONE SOD SUCC 40 MG/ML VIAL 1ML IV SCH ×2 (09:02→21:38)
[2019-01-04] MEDS: HEPARIN SOD (PORCINE) 5,000 UNIT/ML VIAL SC SCH ×2 (09:04→21:36)
[2019-01-04 09:41] LABS: ABG HCO3 26 mmol/L (23-28); ABG PCO2 27 mmHg (41-51); ABG PH 7.59 (7.31-7.41); ABG PO2 122 mmHg (80-105)
--- NOTE | 2019-01-04 09:45 | NUR ---
extubated patient to 4L O2 per NC. tolerating well.
--- NOTE | 2019-01-04 10:12 | NUR ---
daughter at bedside applied lidocaine ointment to left arm fistula
--- NOTE | 2019-01-04 10:19 | NUR ---
patient swallowing without difficulty. no coughing after water intake.
[2019-01-04 10:26] LABS: ANISOCYTOSIS SLIGHT; HYPOCHROMASIA MODERATE; LYMPHOCYTES % (MANUAL) 59 % (19-48); MONOCYTES % (MANUAL) 4 % (3.4-9.0); NEUTROPHILS % (MANUAL) 37 % (40-74); PLATELET ESTIMATE SLIGHTLY DECREASED; PLATELET MORPHOLOGY COMMENT FEW LARGE; RBC MORPHOLOGY COMMENT NORMAL
[2019-01-04] MEDS ORDERED: SODIUM CHLORIDE 0.9% 1000ML 2,000 ML ONE (13:16)
[2019-01-04] MEDS ORDERED: SODIUM CHLORIDE 0.9% 250ML 250 ML ONE (14:09)
[2019-01-04] MEDS ORDERED: SODIUM CHLORIDE 0.9% 1000ML 2,000 ML IV PRN (14:15)
--- NOTE | 2019-01-04 14:15 | NUR ---
WOUND CARE PUP SCREEN Burton Score: 20 PUP: Moderate LOS: 1 day Age: 78 [employer] HOB < 30 Degrees Patient Position: Supine PATIENT VISIT / SKIN CHECK: No Pressure Ulcers Identified. -Recently extubated, Patient now sitting OOB, Standing today for first time during this admission. RECOMMENDATION: - Continue Moderate PUP Addendum: 01/04/19 at 1415 by Alton Mcduffie RN Amended: Links added.
--- NOTE | 2019-01-04 16:05 | Consultation ---
DATE OF CONSULTATION: REASON FOR CONSULTATION: Lymphoproliferative disorder. HISTORY OF PRESENT ILLNESS: Thank you very kindly Dr. Cunha for letting me participate in the care of this pleasant 78-year-old male, who is known to me. He first presented with lymphocytosis in August 2017. Flow cytometry was consistent with lymphoproliferative disorder suggestive of chronic lymphocytic leukemia. He was asymptomatic and had been on observation. Earlier this year in November 2018, he became symptomatic with progressive weight loss, recurrent episodes of angioneurotic edema. He was admitted with another episode of angioneurotic edema with laryngeal edema requiring intubation. He has been managed with symptomatic care including EpiPen and Benadryl. He is progressively improving. His comorbidities include diabetes, hypertension, chronic kidney disease on dialysis, hyperlipidemia, benign prostatic hypertrophy, and prior episode of pulmonary embolism. Additional details of the history are documented in the chart. PHYSICAL EXAMINATION: GENERAL: A well developed male, who is awake on the ventilator, but able to respond to simple commands. VITAL SIGNS: As recorded in the chart. HEENT: Conjunctivae are pale. There is no icterus. There is no palpable adenopathy. LUNGS: Clinically appeared clear. CARDIAC: Heart size could not be well demarcated. ABDOMEN: Mildly distended, but without visceromegaly. LABORATORY DATA: Labs were reviewed. His white count is 26,000, hemoglobin 6.9, hematocrit 22.3, and platelet count of 137,000. IMPRESSION AND PLAN: 1. Lymphoproliferative disorder with recurrent episodes of angioneurotic edema occurring last several weeks. 2. Recurrent angioneurotic edema is a rare complication of lymphoproliferative neoplasms because of an acquired C1 esterase inhibitor deficiency. The preferred treatment option is ofatumumab. I have discussed this with Dr. Holden, the patient, and the patient's family. I will try to arrange for this once he is out of the hospital. Thank you for letting me participate in his care. MD CROW York/ANTON /[id number]
--- NOTE | 2019-01-04 16:24 | NUR ---
Nutrition Screen Note RD Recommendation for Physician: -Continue current diet as ordered Plan of Care: RD following, monitoring for tolerance and adequacy Nutrition reason for involvement: Diagnosis and Nutrition Risk Trigger Primary Diagnose(s): Angio-edema, ESRD on HD PMH: diabetes, hypertension,chronic kidney disease on dialysis, hyperlipidemia, benign prostatic hypertrophy, and prior episode of pulmonary embolism Ht: 64in Wt: 157.06lb BMI: 27kg/m2 IBW: 130lb RD Assessment: (01/04) Chart reviewed. Labs and meds reviewed. 78yo M, who was admitted from home for angio-edema. Pt was extubated today. Renal/ ADA diet has been ordered for lunch today. Visited pt in the room. Per daughters, pt has had good appetite. No complains of nausea or vomiting. Pt denied any chewing or swallowing difficulty. Per daughter, pt has been eating well at home with stable weight. Current diet is appropriate and adequate. Will continue to monitor and follow. Current Diet: renal diabetic diet Malnutrition Evaluation (01/04/2019) The patient does not meet criteria for a specified degree of malnutrition at this time. Will re-evaluate at follow-up as appropriate. Diet Education Needs Assessment: Diet education not indicated. Followed by RD at [facility], [place] Level: low Signed: Wilma Huffman, , RD, LD
[2019-01-05] VITALS (13 sets, daily range): BP systolic 104–122; BP diastolic 51–68
[2019-01-05] MEDS: ALBUTEROL/IPRATROPIUM 3 ML NEB NEB SCH ×4 (02:15→18:55)
[2019-01-05 05:23] LABS: BASOPHILS % 0.1 % (0.0-1.0); HEMATOCRIT 23.2 % (38.2-49.6); HEMOGLOBIN 7.2 g/dL (14.0-18.0); LYMPHOCYTES # (AUTO) 17.4 (1.0-3.2); LYMPHOCYTES % 72.8 % (18.0-39.1); MEAN CORPUSCULAR HEMOGLOBIN 28.2 pg (28-32); MONOCYTES # (AUTO) 0.6 (0.2-0.8); MONOCYTES % 2.4 % (4.4-11.3); NEUTROPHILS # (AUTO) 5.8 (2.1-6.9); NEUTROPHILS % 24.4 % (38.7-80.0); PLATELET COUNT 124 x10e3/uL (140-360); RED BLOOD COUNT 2.55 x10e6/uL (4.3-5.7); RED CELL DISTRIBUTION WIDTH 20.1 % (11.7-14.4)
[2019-01-05 05:29] LABS: ANION GAP 14.5 mmol/L (8-16); CALCIUM 8.4 mg/dL (8.4-10.2); CREATININE, SERUM 4.54 mg/dL (0.72-1.25); POTASSIUM 4.5 mmol/L (3.5-5.1)
[2019-01-05] MEDS: FAMOTIDINE 20 MG/2 ML VIAL IV SCH (05:52)
--- NOTE | 2019-01-05 06:56 | NUR ---
Dr. Cunha notified of 8-beat run of vta. No new orders received.
[2019-01-05 07:22] LABS: BLAST CELLS % MANUAL 1; LYMPHOCYTES % (MANUAL) 73 % (19-48); MONOCYTES % (MANUAL) 4 % (3.4-9.0); NEUTROPHILS % (MANUAL) 22 % (40-74)
[2019-01-05 07:23] LABS: ANISOCYTOSIS SLIG; HYPOCHROMASIA MODE; PLATELET ESTIMATE SLIGHTLY DECREASED; PLATELET MORPHOLOGY COMMENT NORMAL; POIKILOCYTOSIS SLIGHT; RBC MORPHOLOGY COMMENT NORMAL
[2019-01-05] MEDS: INSULIN LISPRO 100 UNIT/1 ML 3ML VIAL SQ SCH ×4 (07:30→20:58)
--- NOTE | 2019-01-05 07:43 | NUR ---
patient out of bed to chair for breakfast
[2019-01-05] MEDS: PREDNISONE 20 MG TAB PO SCH (08:52)
[2019-01-05] MEDS: HEPARIN SOD (PORCINE) 5,000 UNIT/ML VIAL SC SCH ×2 (09:11→20:58)
--- NOTE | 2019-01-05 10:34 | Progress Note ---
DATE: SUBJECTIVE: I have reviewed the chart, evaluated the patient and discussed the case with bilingual executive assistant, Dr. Nehemias Holden. He is feeling well today, extubated, ambulating, able to communicate, mentally clear and comfortable. Briefly summarizing his history, he is a 78-year-old male, who presented with lymphocytosis initially in August of 2017. Flow cytometry was consistent with a lymphoproliferative disorder suggesting chronic lymphatic leukemia. Clinically, he was staged 0, asymptomatic and was on observation with no indication for intervention. About 6 weeks back, he started developing episodes of angioneurotic edema type of picture. These have become more frequent and he was hospitalized 3 days back with severe shortness of breath requiring emergency intubation in the emergency room. He was treated with epinephrine and symptomatic management and has recovered and extubated at the present time. He has not had any other symptoms of his disease. No history of weight loss, fever, night sweats, recurrent infections or bleeding. The patient's comorbidities include diabetes, hypertension, chronic kidney disease on dialysis, hyperlipidemia, benign prostatic hypertrophy, and a prior episode of pulmonary embolism. PHYSICAL EXAMINATION: FUNCTIONAL STATUS: ECOG 1, minimal symptoms of fatigue on exertion, but otherwise functional and active in spite of being on dialysis and his other comorbidities. VITAL SIGNS: Normal. HEENT: Conjunctivae are little pale. There is no icterus. There is no palpable peripheral adenopathy. LUNGS: Clinically clear. HEART: Size appears within normal limits. ABDOMEN: Mildly distended, but without visceromegaly. LABORATORY ANALYSIS: White count 26,000, hemoglobin was 6.9 yesterday, but he got transfused at the time of dialysis, platelet count 137,000. IMPRESSION: 1. Lymphoproliferative disorder consistent with chronic lymphatic leukemia by flow cytometry. 2. Recent onset of recurrent and progressively severe episodes of angioneurotic edema. 3. Comorbidities as listed above. DISCUSSION: Angioneurotic edema has a rare complication of lymphoproliferative neoplasm because of an acquired C1 esterase inhibitor deficiency. The treatment approach is a combination of symptomatic relief with drugs affecting the bradykinin kallikrein pathways. He was seen by an seat nailer and these were prescribed, but he has not been able to get it from his insurance. The other treatment is to treat the leukemia itself with anti-CD20 monoclonal antibody either Rituximab or ofatumumab with or without an additional drug as he is otherwise has minimal disease. I have discussed the case with Dr. Beltran Guillen, food vendor in the medical center, who was on the patient's insurance plan for taking over his case for management as the emergency rooms locally and the hospitals do not stock some of these medications, which would be necessary to manage him in case he develops an acute spell specially while receiving his first treatment. ADDENDUM: Other evaluation for his chronic lymphatic leukemia has included a CT scan of the chest and abdomen, which was done while he was in the hospital, which reveals subcentimeter size lymph nodes in the mediastinum and the abdomen and minimally increased spleen measuring 14 cm. I have explained this to the patient and his daughter and I have requested authorization from his insurance for him to be evaluated and followed by Dr. Guillen. The patient has not had a bone marrow biopsy and he was also to have his chronic lymphatic leukemia prognostic marker analysis, which also has not been done so far. MD CROW York/ANTON /[id number]
--- NOTE | 2019-01-05 14:08 | NUR ---
DISCUSSED IN BARRIER ROUNDS PER DR CODY PT HAS A RARE ANGIOEDEMA FROM HIS LEUKEMIA, PLAN IS TO DISCHARGE HOME TOMORROW AND PT WILL FOLLOW WITH SPECIALTY MD IN MED CENTER. ORDERS FOR MED SURG WITH TELE.
[2019-01-05] MEDS: FAMOTIDINE 20 MG TAB PO SCH (16:48)
[2019-01-05] MEDS ORDERED: SODIUM CHLORIDE 0.9% 250ML 250 ML IV PRN (19:00)
--- NOTE | 2019-01-05 19:49 | NUR ---
Spoke with Pepe to ensure that patient is on schedule for HD tomorrow per Dr. Sommer's orders.
[2019-01-06] VITALS (7 sets, daily range): BP systolic 128–146; BP diastolic 58–75
--- NOTE | 2019-01-06 00:16 | NUR ---
RECEIVED PT FROM ICU TO ROOM 204 VIA WHEEL CHAIR AT THIS TIME.PT AAO X 3.NO S/S OF DISTRESS NOTED.RESPIRATIONS EVEN/NON LABORED.PT ON TELE BOX#6 SINUS TACH 105,PT DENIES ANY NEEDS.ORIENTED PT TO ROOM,BATHROOM AND CALL LIGHT. AT BEDSIDE.INSTRUCTED PT TO CALL FOR ASSISTANCE NEEDED BY USING CALL LIGHT.PT VERBALIZED UNDERSTANDING.CALL LIGHT WITHIN EASY REACH.
--- NOTE | 2019-01-06 00:40 | NUR ---
Report given to Erin KC at 2350. Patient transferred to 204 with all belongings at 2359 via , escorted by RN. Family is at bedside. No acute signs of distress noted.
[2019-01-06] MEDS: ALBUTEROL/IPRATROPIUM 3 ML NEB NEB SCH ×3 (01:10→13:35)
[2019-01-06 05:02] LABS: BASOPHILS % 0.1 % (0.0-1.0); EOSINOPHILS % 0.1 % (0.0-6.0); HEMATOCRIT 23.2 % (38.2-49.6); HEMOGLOBIN 7.5 g/dL (14.0-18.0); LYMPHOCYTES % 75.4 % (18.0-39.1); MEAN CORPUSCULAR HGB CONC 32.3 g/dL (31-35); MEAN CORPUSCULAR VOLUME 89.6 fL (81-99); MONOCYTES # (AUTO) 1.6 (0.2-0.8); MONOCYTES % 6.5 % (4.4-11.3); NEUTROPHILS # (AUTO) 4.4 (2.1-6.9); NEUTROPHILS % 17.6 % (38.7-80.0); PLATELET COUNT 126 x10e3/uL (140-360); RED BLOOD COUNT 2.59 x10e6/uL (4.3-5.7); RED CELL DISTRIBUTION WIDTH 20.9 % (11.7-14.4)
[2019-01-06 05:35] LABS: ANION GAP 16.1 mmol/L (8-16); CREATININE, SERUM 6.74 mg/dL (0.72-1.25); MAGNESIUM 2.1 MG/DL (1.3-2.1); POTASSIUM 4.1 mmol/L (3.5-5.1)
[2019-01-06] MEDS: FAMOTIDINE 20 MG TAB PO SCH ×2 (07:30→16:14)
[2019-01-06] MEDS: INSULIN LISPRO 100 UNIT/1 ML 3ML VIAL SQ SCH ×3 (07:30→16:14)
[2019-01-06 07:50] LABS: BLAST CELLS % MANUAL 2; LYMPHOCYTES % (MANUAL) 80 % (19-48); MONOCYTES % (MANUAL) 6 % (3.4-9.0); NEUTROPHILS % (MANUAL) 12 % (40-74)
--- NOTE | 2019-01-06 08:00 | NUR ---
Dialysis started at this time, patient alert and responsive, VSS, no resp distress, call light within reach, assisted to bathroom and back to bed, will monitor.
[2019-01-06 08:44] LABS: PLATELET ESTIMATE SLIGHTLY DECREASED; PLATELET MORPHOLOGY COMMENT NORMAL; RBC MORPHOLOGY COMMENT NORMAL
[2019-01-06 08:45] LABS: HYPOCHROMASIA MODERATE; POLYCHROMASIA FEW
[2019-01-06] MEDS: PREDNISONE 20 MG TAB PO SCH (09:00)
[2019-01-06] MEDS: HEPARIN SOD (PORCINE) 5,000 UNIT/ML VIAL SC SCH (09:00)
--- NOTE | 2019-01-06 10:33 | NUR ---
Blood picked up from blood bank and verified at bedside, dialysis nurse infusing blood at this time.
--- NOTE | 2019-01-06 14:00 | NUR ---
Call to Dr. Saleh's service for clearance to discharge. Waiting for call back
[2019-01-06] MEDS ORDERED: PREDNISONE10 MG PO (14:16)
--- NOTE | 2019-01-06 15:12 | NUR ---
Clearance for discharge obtained from Dr. Sommer and Dr. Holden.
--- NOTE | 2019-01-06 15:24 | NUR ---
Second call to Dr. Saleh's service and spoke with Kiera and waiting for call back
--- NOTE | 2019-01-06 15:28 | NUR ---
Spoke with Dr. Saleh and clearance received for discharge.
--- NOTE | 2019-01-06 15:48 | NUR ---
Call from Tele and HR in the 120's. Checked tele monitor and HR at 130, notified Dr. Cunha and orders for Metoprolol 25mg x1 and to check HR again in 1 hour and notify him.
[2019-01-06] MEDS ORDERED: METOPROLOL TARTRATE 25 MG TAB PO ONE (16:00)
--- NOTE | 2019-01-06 16:13 | NUR ---
Patient with low grade temp of 100.0, notified Dr. Cunha and orders for Tylenol 650mg x1.
[2019-01-06] MEDS ORDERED: GUAIFENESIN 200 MG/10 ML UDC PO ONE (16:45)
[2019-01-06] MEDS ORDERED: ACETAMINOPHEN 325 MG TAB PO NR (16:45)
--- NOTE | 2019-01-06 17:38 | NUR ---
Spoke with Dr. Cunha, reported HR at 104 and Temp-99.5 and ok to discharge patient. Provided patient with discharge instructions and prescriptions and to call Dr. Saleh's office on Wednesday as instructed. IV line removed with cath tip in place, dressing applied.
--- NOTE | 2019-01-11 05:18 | Discharge Summary ---
DISCHARGE DIAGNOSES: 1. Angioedema. 2. Respiratory failure, status post intubation. 3. Chronic lymphocytic leukemia. 4. Anemia. 5. End-stage renal disease. 6. History of diabetes, diet controlled. HISTORY OF PRESENT ILLNESS AND HOSPITAL COURSE: The patient is a gentleman with history of CLL, seeing Dr. Saleh as an outpatient, who also has a history of end-stage renal disease, who presented with acute onset of angioedema that he has been having two episodes for the EpiPen. The patient had no release, so he presented to the emergency room. He was noted to have significant angioedema of the lips and tongue, but he got airway. Due to the potential respiratory failure and on airway protection, he was electively intubated. He is to continue with medications, steroids, and H2 blockers and the patient made a complete recovery, he was able to be extubated by the following day. He was seen by Dr. Saleh, who scheduled for some outpatient treatments for CLL as well as angioedema. At the time of discharge, he is back to his normal self, doing good, and will follow up with Dr. Saleh in 1 to 2 weeks. Please see hospital chart for full details. MD MARIA D Best/ANTON /[id number]
== END 2019-01-06 17:40 | disposition home or self-care (01) | DRG 208 ==
LOC: ER 04:39 → ERHOLD 06:53 → ICU 07:50 → MED/SURG2 01-05 23:57
PROVIDERS: ADMIT Internal Medicine; ATTEND Internal Medicine
PROC: 0BH17EZ Insertion of Endotracheal Airway into Trachea, Via Natural or Artificial Opening (ICD-10-PCS; principal; 2019-01-03)
PROC: 5A1945Z Respiratory Ventilation, 24-96 Consecutive Hours (ICD-10-PCS; 2019-01-03)
PROC: 30243K1 Transfusion of Nonautologous Frozen Plasma into Central Vein, Percutaneous Approach (ICD-10-PCS; 2019-01-04)
PROC: 5A1D70Z Performance of Urinary Filtration, Intermittent, Less than 6 Hours Per Day (ICD-10-PCS; 2019-01-04)
PROC: 5A1D70Z Performance of Urinary Filtration, Intermittent, Less than 6 Hours Per Day (ICD-10-PCS; 2019-01-06)
DX: J96.01 Acute respiratory failure with hypoxia (principal); N18.6 End stage renal disease; C91.10 Chronic lymphocytic leukemia of B-cell type not having achieved remission; I12.0 Hypertensive chronic kidney disease with stage 5 chronic kidney disease or end stage renal disease; D47.Z9 Other specified neoplasms of uncertain behavior of lymphoid, hematopoietic and related tissue; T78.3XXA Angioneurotic edema, initial encounter; Z99.2 Dependence on renal dialysis; Z86.718 Personal history of other venous thrombosis and embolism; E11.9 Type 2 diabetes mellitus without complications; K27.9 Peptic ulcer, site unspecified, unspecified as acute or chronic, without hemorrhage or perforation; D71 Functional disorders of polymorphonuclear neutrophils; R16.1 Splenomegaly, not elsewhere classified; Z86.711 Personal history of pulmonary embolism; J38.4 Edema of larynx; N40.0 Benign prostatic hyperplasia without lower urinary tract symptoms; D84.1 Defects in the complement system; I25.10 Atherosclerotic heart disease of native coronary artery without angina pectoris; J98.8 Other specified respiratory disorders; D63.1 Anemia in chronic kidney disease
CPT/HCPCS: 36415; 36600; 71045; 80048; 80053; 82550; 82553; 82805; 82948; 83735; 84484; 85025; 85610; 85730; 86705; 86706; 86850; 86900; 86920; 87070; 87116; 87205; 87206; 87340; 90962; 93005; 94002; 94003; 94640; 96372; 97139; 99284; J0171; J1200; J1644; J2920; J2930; J7030; J7050; J7512; P9016; P9017

== ENCOUNTER 2019-05-20 18:24 | Inpatient (IN) | payer MEDICARE ==
[~2019-05-20] VITALS: Ht 167.6 cm; Wt 64.9 kg
[~2019-05-20 18:24] MED LIST changes: +PREDNISONE10 MG PO
[2019-05-20] MEDS ORDERED: PIPER-TAZ 3.375 GM 50 ML IV NR (19:45)
[2019-05-20 20:00] LABS: BASOPHILS % 0.2 % (0.0-1.0); EOSINOPHILS # (AUTO) 0.5 (0.0-0.4); EOSINOPHILS % 2.7 % (0.0-6.0); HEMATOCRIT 40.8 % (38.2-49.6); HEMOGLOBIN 13.2 g/dL (14.0-18.0); LYMPHOCYTES % 62.2 % (18.0-39.1); MEAN CORPUSCULAR HEMOGLOBIN 32.1 pg (28-32); MEAN CORPUSCULAR HGB CONC 32.4 g/dL (31-35); MEAN CORPUSCULAR VOLUME 99.3 fL (81-99); MONOCYTES # (AUTO) 0.7 (0.2-0.8); MONOCYTES % 3.9 % (4.4-11.3); NEUTROPHILS # (AUTO) 5.9 (2.1-6.9); NEUTROPHILS % 30.8 % (38.7-80.0); PLATELET COUNT 154 x10e3/uL (140-360); RED BLOOD COUNT 4.11 x10e6/uL (4.3-5.7); RED CELL DISTRIBUTION WIDTH 16.5 % (11.7-14.4)
[2019-05-20] MEDS ORDERED: VANCOMYCIN 1GM/NS 250 ML 250 ML IV ONE (20:00)
[2019-05-20 20:18] LABS: ALBUMIN 3.6 g/dL (3.5-5.0); ALBUMIN/GLOBULIN RATIO 0.9 (0.8-2.0); ANION GAP 22.5 mmol/L (8-16); CALCIUM 10.8 mg/dL (8.4-10.2); CREATININE, SERUM 9.48 mg/dL (0.72-1.25); POTASSIUM 4.5 mmol/L (3.5-5.1)
[2019-05-20] MEDS ORDERED: ALLOPURINOL100 MG PO (20:35)
[2019-05-20] MEDS ORDERED: IMBRUVICA140 MG PO (20:36)
[2019-05-20] MEDS ORDERED: DIALYVITE 8000.8 M1 PO (20:37)
[2019-05-20] MEDS ORDERED: CALCIUM ACETAT667 M1 PO (20:37)
--- NOTE | 2019-05-20 20:37 | Diagnostic Imaging Report ---
History:Right eye redness and swelling. Comparison studies:None Technique: Axial images were obtained through the orbits without contrast. Coronal and sagittal images reconstructed from the axial data. Dose modulation, iterative reconstruction, and/or weight based adjustment of the mA/kV was utilized to reduce the radiation dose to as low as reasonably achievable. Intravenous contrast: None. Findings: Globes: Intact. The anterior and posterior chambers are clear. Right intraocular lens is well visualized. Left eye pseudophakia. Optic nerves: Normal in size and symmetric. Extraocular muscles: Normal in size and symmetric. Intraconal abnormalities: None. Superior ophthalmic veins: Suboptimal evaluation due to lack of intravenous contrast, despite the limitation no significant abnormality Cavernous sinuses: Grossly symmetric. Pituitary stalk: At midline. Optic chiasm: Grossly unremarkable. Bones: No abnormalities. Sinuses: Clear. Soft tissues: Mild right preseptal periorbital soft tissue edema. No discrete post septal extension of inflammatory changes. Suboptimal evaluation for abscess due to lack of intravenous contrast. IMPRESSION: Mild right preseptal periorbital soft tissue cellulitis. Signed by: Dr. Maria R Bailey M.D. on 05/20/2019 8:34 PM
[2019-05-20] MEDS ORDERED: FIRAZYR30 MG/3 ML SC (20:39)
[2019-05-20] MEDS ORDERED: ONDANSETRON HCL INJ 2MG/ML 2ML 2 MG/ML VIAL IV PRN (21:15)
[2019-05-20] MEDS ORDERED: DEXTROSE 50% SYRINGE 50 ML IV PRN (21:15)
[2019-05-20] MEDS: PIPERACILLIN/TAZO 2.25 GM 50 ML IV SCH (21:31)
[2019-05-20] MEDS: TOBRAMYCIN 0.3% OPTH OINT 3.5 GM TUBE OP SCH ×2 (21:44→22:30)
[2019-05-20 22:10] VITALS: BP 178/78
--- NOTE | 2019-05-20 22:10 | NUR ---
patient received to room 292 via wc from the emergency room at this time. vss. no c/o pain noted. right eye redness/swelling noted. admission assessment/history complete. daughter (barbadian speaking) noted at the bedside. patient/daughter instructed to call for assistance when needed.
[2019-05-21] VITALS (8 sets, daily range): BP systolic 159–183; BP diastolic 63–81
[2019-05-21] MEDS: TOBRAMYCIN 0.3% OPTH OINT 3.5 GM TUBE OP SCH ×3 (05:10→20:56)
[2019-05-21 06:07] LABS: BASOPHILS # (AUTO) 0.1 (0.0-0.1); BASOPHILS % 0.3 % (0.0-1.0); EOSINOPHILS # (AUTO) 0.6 (0.0-0.4); EOSINOPHILS % 3.7 % (0.0-6.0); HEMATOCRIT 40.5 % (38.2-49.6); HEMOGLOBIN 12.8 g/dL (14.0-18.0); LYMPHOCYTES % 61.8 % (18.0-39.1); MEAN CORPUSCULAR HEMOGLOBIN 31.4 pg (28-32); MEAN CORPUSCULAR HGB CONC 31.6 g/dL (31-35); MEAN CORPUSCULAR VOLUME 99.3 fL (81-99); MONOCYTES # (AUTO) 0.7 (0.2-0.8); NEUTROPHILS # (AUTO) 4.9 (2.1-6.9); PLATELET COUNT 144 x10e3/uL (140-360); RED BLOOD COUNT 4.08 x10e6/uL (4.3-5.7); RED CELL DISTRIBUTION WIDTH 16.2 % (11.7-14.4)
[2019-05-21 06:54] LABS: ANION GAP 18.3 mmol/L (8-16); CALCIUM 10.2 mg/dL (8.4-10.2); CREATININE, SERUM 10.34 mg/dL (0.72-1.25); POTASSIUM 4.3 mmol/L (3.5-5.1)
--- NOTE | 2019-05-21 07:17 | NUR ---
PATIENT IN BED RESTING WITH NO S/S OF DISTRESS. REDNESS AND SWELLING TO RIGHT EYES. DENIED PAIN AT THIS TIME. BED IN LOWER POSITION, CALL LIGHT AT REACH.
[2019-05-21] MEDS: INSULIN REGULAR, HUMAN 100 UNIT/1 ML 3ML VIAL SQ SCH ×4 (07:30→20:56)
[2019-05-21] MEDS ORDERED: SODIUM CHLORIDE 0.9% 250ML 250 ML ONE (09:33)
[2019-05-21] MEDS: PIPERACILLIN/TAZO 2.25 GM 50 ML IV SCH ×2 (09:53→20:56)
--- NOTE | 2019-05-21 11:42 | NUR ---
PATIENT OUT OF BED TO CHAIR, NO COMPLAIN VOICED. CALL LIGHT AT REACH.
--- NOTE | 2019-05-21 12:20 | History and Physical ---
REASON FOR ADMISSION: A 78-year-old male with end-stage renal disease, comes with right eye conjunctivitis and swelling. HISTORY OF PRESENT ILLNESS: Mr. Deondre Landa is a 78-year-old male with a history of end-stage renal disease, started with eye pain and tenderness about 4 days ago. The patient says right eye could not be shut closed and therefore, the patient came in, increased redness and increase in the conjunctival junction, and the patient has drainage and matting, and was sent to the ER. The patient had been seen by PCP, 4 days ago prior to this admission. Blurry vision, double vision are not present. The patient has no decreased loss of vision except for conjunctival injection. PAST MEDICAL HISTORY: History of end-stage renal disease, history of hypertension, history of chronic kidney disease the past, history of diabetes mellitus, history of pulmonary embolism, history of angioedema, history of ulcerative colitis, and history of leukemia. PAST SURGICAL HISTORY: History of cataract removal and also fistulas in the arm. MEDICATIONS: He takes at home are: 1. Allopurinol 100 mg daily. 2. Calcium acetate 667 mg daily. 3. Imbruvica 140 mg daily. 4. Firazyr 30 mcg subcutaneous p.r.n. ALLERGIES: NO DRUG ALLERGIES NOTED. SOCIAL HISTORY: No EtOH. No IV drug abuse. No history of smoking. FAMILY HISTORY: History of hypertension and diabetes. REVIEW OF SYSTEMS: Negative for chest pain. Positive for pain in the eye and also redness in the eye. Mucopurulent discharge. No itch. No shortness of breath. No nausea, vomiting, or diarrhea. No constipation. No rectal bleeding. No hematochezia. No hematemesis. PHYSICAL EXAMINATION: VITAL SIGNS: Temperature is 97.4, pulse is 70, blood pressure is 179/81. The patient's pulse oximetry 96% on room air. HEENT: Normocephalic, atraumatic. The patient's bilateral eye with conjunctival injection, increased in red, positive for conjunctival edema and erythema, tenderness around the eye, and also positive for erythema and swelling in the right eye. The patient's left eye also does show conjunctival injection. NECK: No JVD present. Positive for some epitrochlear lymph node. CVS: S1 and S2 normal. Regular rhythm. LUNGS: Clear to auscultation bilaterally. ABDOMEN: Nontender, nondistended. EXTREMITIES: No clubbing, no cyanosis, no edema. NEUROLOGIC: The patient is alert and oriented x3 with normal affect and mood. No motor deficits noted. Sensory deficit noted in the lower extremity. LABORATORY VALUES: White count is 19,000, hemoglobin of 13.2, hematocrit of 40.8. Chemistry shows sodium of 139, potassium 4.9, BUN of 54, creatinine of 9.48. AST and ALT normal. IMAGING STUDIES: CT of the orbit shows mild right preseptal periorbital cellulitis. MICROBIOLOGY: Still pending. ASSESSMENT AND PLAN: 1. Facial and orbital cellulitis. The patient is currently on Zosyn and we will continue monitoring it. The patient is also on tobramycin ophthalmic drops. 2. Insulin sliding scale has been instituted for his diabetes. 3. For his hypertension, we will start some hydralazine as needed. 4. Also, the patient needs dialysis, end-stage renal disease. His Renal doctor will be consulted. 5. A consult with Ophthalmology is also needed. Further recommendation per clinical course. We will continue to monitor the patient. Sonido Cr MD ASJ/MODL /[id number]
--- NOTE | 2019-05-21 15:17 | NUR ---
PATIENT AMBULATING IN HALLWAY WITH FAMILY MEMBER. WILL CLOSELY MONITOR.
--- NOTE | 2019-05-21 16:24 | NUR ---
PATIENT NOTED WITH B/P OF 161/65. PRN HYDRALAZINE OFFERED, PATIENT REFUSED.
--- NOTE | 2019-05-21 19:00 | NUR ---
PT IS RESTING IN BED WITH FAMILY AT BEDSIDE. RESPIRATION IS EVEN AND UNLABORED, NO DISTRESS NOTED. BED IN THE LOWEST POSITION, LOCKED, AND CALL LIGHT WITHIN REACH. WILL CONTINUE TO MONITOR.
[2019-05-21] MEDS: HYDRALAZINE HCL 20 MG/ML VIAL IV PRN (20:56)
[2019-05-22] VITALS (8 sets, daily range): BP systolic 144–189; BP diastolic 64–77
[2019-05-22] MEDS: HYDRALAZINE HCL 20 MG/ML VIAL IV PRN (04:31)
[2019-05-22] MEDS: TOBRAMYCIN 0.3% OPTH OINT 3.5 GM TUBE OP SCH ×3 (06:05→20:53)
[2019-05-22 06:26] LABS: BASOPHILS # (AUTO) 0.1 (0.0-0.1); BASOPHILS % 0.3 % (0.0-1.0); EOSINOPHILS # (AUTO) 0.5 (0.0-0.4); EOSINOPHILS % 3.1 % (0.0-6.0); HEMATOCRIT 40.5 % (38.2-49.6); HEMOGLOBIN 12.8 g/dL (14.0-18.0); LYMPHOCYTES # (AUTO) 8.9 (1.0-3.2); LYMPHOCYTES % 58.3 % (18.0-39.1); MEAN CORPUSCULAR HEMOGLOBIN 31.1 pg (28-32); MEAN CORPUSCULAR HGB CONC 31.6 g/dL (31-35); MEAN CORPUSCULAR VOLUME 98.5 fL (81-99); MONOCYTES # (AUTO) 0.6 (0.2-0.8); MONOCYTES % 3.8 % (4.4-11.3); NEUTROPHILS # (AUTO) 5.2 (2.1-6.9); PLATELET COUNT 138 x10e3/uL (140-360); RED BLOOD COUNT 4.11 x10e6/uL (4.3-5.7); RED CELL DISTRIBUTION WIDTH 15.9 % (11.7-14.4)
[2019-05-22 06:46] LABS: ANION GAP 22.2 mmol/L (8-16); CREATININE, SERUM 12.04 mg/dL (0.72-1.25)
[2019-05-22 06:50] LABS: POTASSIUM 5.2 mmol/L (3.5-5.1)
--- NOTE | 2019-05-22 07:01 | NUR ---
received bedside report from manager night RN, pt ambulating to bathroom, no signs of distress noted. will continue to monitor
[2019-05-22] MEDS: INSULIN REGULAR, HUMAN 100 UNIT/1 ML 3ML VIAL SQ SCH ×4 (07:30→20:46)
[2019-05-22] MEDS: ALLOPURINOL 100 MG TAB PO SCH (08:43)
[2019-05-22] MEDS: PIPERACILLIN/TAZO 2.25 GM 50 ML IV SCH ×2 (08:48→23:00)
[2019-05-22] MEDS ORDERED: VANCOMYCIN HCL 1 GM in SODIUM CHLORIDE 0.9% 250ML 250 ML IV SCH (15:45)
--- NOTE | 2019-05-22 17:09 | Consultation ---
DATE OF CONSULTATION: 05/22/2019 HISTORY OF PRESENT ILLNESS: Mr. Deondre Landa known to me, is a pleasant 78-year-old gentleman, underlying history of diabetes with diabetic end-organ damage including retinopathy, neuropathy, peripheral vascular disease, coronary artery disease, congestive heart failure, and end-stage renal disease. Currently admitted with right eye conjunctivitis, seen by Ophthalmology. Currently lying supine. Renal consult for management of hyperkalemia and kidney failure. LABORATORY TEST: Shows sodium 138, potassium 5.2, and creatinine 12. Hemoglobin 12.8. SOCIAL HISTORY: Does not smoke or drink. FAMILY HISTORY: Significant for hypertension and diabetes. PHYSICAL EXAMINATION: GENERAL: Awake, alert, and oriented x3. No apparent distress. VITAL SIGNS: Blood pressure 155/73, pulse rate 74, afebrile, and oxygen saturation 97% on room air. HEAD AND NECK: Cornea clear. Oral mucosa moist. Neck veins flat. Right cornea could not be examined. Right eye fairly swollen with eyelid edema. I defer that exam to Ophthalmology. LUNGS: Relatively clear. HEART: S1 and S2 audible. ABDOMEN: Otherwise soft and nontender. EXTREMITIES: Lower extremity examination shows no edema. IMPRESSION AND PLAN: Hyperkalemia, end-stage renal disease, and mild fluid overload, on dialysis. Sodium 140, potassium 2, bicarb 35, and calcium 2.5, blood flow 400, dialysate 800, UF as tolerated. MD PÉREZ Alves/MODL /[id number]
--- NOTE | 2019-05-22 18:15 | Consultation ---
DATE OF CONSULTATION: HISTORY OF PRESENT ILLNESS: Mr. Landa is here because he is having redness and swelling and edema around his right eye. There is no history of trauma. The patient went to see his doctor, Dr. Cunha, who give him a shot of antibiotic, probably Rocephin plus some oral antibiotic, but it was getting progressively worse. He did come here where he was admitted. There is some swelling involving upper eyelid. PAST MEDICAL HISTORY: The patient has a past medical history of end-stage renal disease on hemodialysis, history of hypertension, history of chronic kidney disease, diabetes mellitus, neuropathy, pulmonary embolism, history of angioedema, history of ulcerative colitis, history of leukemia, history of cataract surgery, history of fistula creation in the arm, and history of gout, comes in with the above complaint. The patient is being admitted and I am asked to see him. MEDICATIONS: He is on allopurinol, calcium, Imbruvica 140 daily, and Firazyr subcutaneous p.r.n. He is on tobramycin eye drops and Zosyn. ALLERGIES: NKA. SOCIAL HISTORY: There is no smoking, drug abuse, or alcohol abuse. FAMILY HISTORY: Hypertension and diabetes. REVIEW OF SYSTEMS: Otherwise, denies any fever, chills, nausea, vomiting, diarrhea, urgency, or frequency. LABORATORY DATA: When he first came, his white count was 19.20, hemoglobin 13, and hematocrit 40. His sodium 138, potassium of 5.2, and creatinine of 12.4. PHYSICAL EXAMINATION: GENERAL: He is currently alert and oriented. Does not seem to be in acute distress. HEENT: There is swelling and redness noted around periorbital area. There is some erythema and edema involving that area. There are no visual changes. NECK: Supple. No JVD. No lymphadenopathy. No thyromegaly. CHEST: Clear bilateral. HEART: S1 and S2. No S3, S4, or murmur. ABDOMEN: Soft. Bowel sounds present. No tenderness. EXTREMITIES: No edema. IMPRESSION: 1. Periorbital cellulitis, conjunctivitis. Agree with Zosyn. We will add vancomycin. Concerned about this high white count. We will follow clinically. 2. End-stage renal disease, on hemodialysis. We will adjust antibiotic for that kidney function. 3. Diabetes. 4. We will follow with you. MD BENTON Grossman /[id number]
--- NOTE | 2019-05-22 19:20 | NUR ---
Received patient awake, not in distress, hemodialysis nurse at bedside, about to hook patient to HD machine, call light within easy reach, advised to call anytime when needed. Will continue to monitor closely
[2019-05-22] MEDS ORDERED: SODIUM CHLORIDE 0.9% 1000ML 2,000 ML ONE (19:24)
[2019-05-22] MEDS: VANCOMYCIN 1GM/NS 250 ML 250 ML IV SCH (19:56)
--- NOTE | 2019-05-22 21:00 | NUR ---
IV Zosyn was not given at this time, patient is ongoing hemodialysis
--- NOTE | 2019-05-22 23:00 | NUR ---
Hemodialysis done, took 2385ml per HD nurse.
[2019-05-23] VITALS (8 sets, daily range): BP systolic 149–181; BP diastolic 67–89
[2019-05-23] MEDS: TOBRAMYCIN 0.3% OPTH OINT 3.5 GM TUBE OP SCH ×3 (05:14→20:53)
[2019-05-23] MEDS: INSULIN REGULAR, HUMAN 100 UNIT/1 ML 3ML VIAL SQ SCH ×4 (07:30→22:24)
--- NOTE | 2019-05-23 07:30 | NUR ---
PT UP IN BED SLEEPING ,NO S/S DISCOMFORT.
[2019-05-23] MEDS: PIPERACILLIN/TAZO 2.25 GM 50 ML IV SCH ×2 (08:30→20:53)
[2019-05-23] MEDS: ALLOPURINOL 100 MG TAB PO SCH (08:30)
--- NOTE | 2019-05-23 10:00 | NUR ---
PT AMBULATING INNHALL DENIES PAIN
--- NOTE | 2019-05-23 16:32 | NUR ---
UP IN CHAIR DENIES PAIN,,DR HUYNH OFFICE CALLED STATED KASI NOT SEE PT UNTIL AM.
--- NOTE | 2019-05-23 19:00 | NUR ---
Received patient awake on bed, right orbital swelling noted, no complaints of pain at this time, not in distress, call light within reach, bed in low position and locked
[2019-05-23] MEDS: HYDRALAZINE HCL 20 MG/ML VIAL IV PRN (21:13)
[2019-05-24] VITALS (8 sets, daily range): BP systolic 129–171; BP diastolic 59–79
[2019-05-24] MEDS: TOBRAMYCIN 0.3% OPTH OINT 3.5 GM TUBE OP SCH (05:17)
[2019-05-24 06:25] LABS: BASOPHILS # (AUTO) 0.1 (0.0-0.1); BASOPHILS % 0.3 % (0.0-1.0); EOSINOPHILS # (AUTO) 0.3 (0.0-0.4); EOSINOPHILS % 2.1 % (0.0-6.0); HEMATOCRIT 43.6 % (38.2-49.6); HEMOGLOBIN 13.7 g/dL (14.0-18.0); LYMPHOCYTES # (AUTO) 8.5 (1.0-3.2); LYMPHOCYTES % 52.9 % (18.0-39.1); MEAN CORPUSCULAR HEMOGLOBIN 30.9 pg (28-32); MEAN CORPUSCULAR HGB CONC 31.4 g/dL (31-35); MEAN CORPUSCULAR VOLUME 98.2 fL (81-99); MONOCYTES # (AUTO) 0.8 (0.2-0.8); MONOCYTES % 4.7 % (4.4-11.3); NEUTROPHILS # (AUTO) 6.4 (2.1-6.9); NEUTROPHILS % 39.7 % (38.7-80.0); PLATELET COUNT 146 x10e3/uL (140-360); RED BLOOD COUNT 4.44 x10e6/uL (4.3-5.7); RED CELL DISTRIBUTION WIDTH 15.8 % (11.7-14.4)
[2019-05-24 06:40] LABS: ALBUMIN 3.1 g/dL (3.5-5.0); ALBUMIN/GLOBULIN RATIO 0.8 (0.8-2.0); ANION GAP 21.4 mmol/L (8-16); CALCIUM 10.1 mg/dL (8.4-10.2); CREATININE, SERUM 10.54 mg/dL (0.72-1.25); POTASSIUM 4.4 mmol/L (3.5-5.1)
--- NOTE | 2019-05-24 06:52 | NUR ---
RECEIVED REPORT FROM OFFGOING NURSE. WALKING ROUNDS DONE. PATIENT IS RESTING IN BED. NO ACUTE DISTRESS NOTED. CALL LIGHT WITHIN REACH. BED IN THE LOWEST POSITION.
[2019-05-24 06:53] LABS: PLATELET ESTIMATE MODERATELY DECREASED
[2019-05-24 07:06] LABS: PLATELET MORPHOLOGY COMMENT FEW LARGE
[2019-05-24] MEDS: INSULIN REGULAR, HUMAN 100 UNIT/1 ML 3ML VIAL SQ SCH ×4 (07:30→21:00)
[2019-05-24] MEDS ORDERED: SODIUM CHLORIDE 0.9% 1000ML 2,000 ML ONE (08:21)
[2019-05-24] MEDS ORDERED: MANNITOL 25% 12.5GM/50 ML VIAL IV PRN (08:45)
[2019-05-24] MEDS ORDERED: SODIUM CHLORIDE 0.9% 1000ML 2,000 ML IV PRN (08:45)
[2019-05-24] MEDS ORDERED: ALBUMIN 25% 12.5GM 0.25 GM/ML BTL IV PRN (08:45)
[2019-05-24] MEDS ORDERED: SODIUM CHLORIDE 0.9% 250ML 500 ML IV PRN (08:45)
[2019-05-24] MEDS ORDERED: TOBRAMYCIN 0.3% OPTH OINT 3.5 GM TUBE OP SCH (09:00)
[2019-05-24] MEDS ORDERED: PREDNISOLONE ACETATE 1% OPTH SUSP 5 ML BTL OP SCH (09:00)
[2019-05-24] MEDS: PREDNISOLONE ACETATE 1% OPTH SUSP 5 ML BTL OP SCH ×4 (09:53→22:39)
[2019-05-24] MEDS: TOBRAMYCIN/DEXAMETHASONE(OPTH) 3.5 GM TUBE OP SCH ×2 (10:20→22:39)
[2019-05-24] MEDS: ALLOPURINOL 100 MG TAB PO SCH (13:00)
[2019-05-24] MEDS: PIPERACILLIN/TAZO 2.25 GM 50 ML IV SCH ×2 (13:00→21:15)
[2019-05-24] MEDS: TOBRAMYCIN 0.3% (OPTH) 5 ML BTL OP SCH ×3 (13:05→22:39)
--- NOTE | 2019-05-24 13:51 | NUR ---
DPA completed, also IMM explained to patient and daughter donna. Verbalized understanding, daughter signed for patient per his request, placed on chart. copy given to patient
[2019-05-24] MEDS: VANCOMYCIN 1GM/NS 250 ML 250 ML IV SCH (17:00)
[2019-05-24] MEDS: CALCIUM ACETATE 667 MG GELCAP PO SCH (17:19)
--- NOTE | 2019-05-24 18:10 | NUR ---
Charge nurse attempted to get IV x2, unable to get access. Will get technical applications scientist to give patient IV access.
--- NOTE | 2019-05-24 19:33 | NUR ---
PER DR HAWKINS HOLD VANCOMYCIN AND ZOSYN DUE TO PT NOT HAVING IV ACCESS. PT WAS STUCK FIVE TIME AND WAS UNABLE TO GET IV ACCESS. WILL CONTINUE TO MONITOR.
--- NOTE | 2019-05-24 19:37 | NUR ---
REPORT GIVEN TO ONCOMING NURSE. WALKING ROUNDS DONE. PATIENT IS RESTING IN BED. NO ACUTE DISTRESS NOTED. DAUGHTER AT BEDSIDE. CALL LIGHT WITHIN REACH. BED IN THE LOWEST POSITION.
[2019-05-24] MEDS: NON-FORMULARY MEDICATION PO SCH (21:00)
[2019-05-25] VITALS (7 sets, daily range): BP systolic 140–210; BP diastolic 63–75
--- NOTE | 2019-05-25 06:56 | NUR ---
RECEIVED REPORT FROM OFF GOING NURSE. WALKING ROUNDS DONE. PATIENT IS RESTING IN BED. NO ACUTE DISTRESS NOTED. CALL LIGHT WITHIN REACH. BED IN THE LOWEST POSITION.
[2019-05-25] MEDS: INSULIN REGULAR, HUMAN 100 UNIT/1 ML 3ML VIAL SQ SCH ×4 (07:30→20:14)
[2019-05-25] MEDS: PREDNISOLONE ACETATE 1% OPTH SUSP 5 ML BTL OP SCH ×4 (08:54→20:14)
[2019-05-25] MEDS: ALLOPURINOL 100 MG TAB PO SCH (08:56)
[2019-05-25] MEDS: FOLIC ACID/CYANOCOB/PYRIDOXINE TAB PO SCH (08:56)
[2019-05-25] MEDS: CALCIUM ACETATE 667 MG GELCAP PO SCH ×3 (08:56→17:49)
[2019-05-25] MEDS: TOBRAMYCIN 0.3% (OPTH) 5 ML BTL OP SCH ×4 (09:00→20:14)
[2019-05-25] MEDS: PIPERACILLIN/TAZO 2.25 GM 50 ML IV SCH ×2 (09:00→20:14)
[2019-05-25] MEDS: TOBRAMYCIN/DEXAMETHASONE(OPTH) 3.5 GM TUBE OP SCH ×2 (09:07→20:14)
[2019-05-25] MEDS ORDERED: ONDANSETRON HCL 4 MG ORAL DISINTEGRATING TAB PO PRN (11:00)
--- NOTE | 2019-05-25 16:29 | NUR ---
Nutrition Screen Note RD Recommendation for Physician: - Consider adding Renal restrictions to current diet - Please check Phos with next lab draw Plan of Care: RD following, monitoring for tolerance and adequacy Nutrition reason for involvement: LOS- early Primary Diagnose(s): conjunctivitis, orbital cellulitis of R eye PMH: ESRD, HTN, DM, ulcerative colitis Ht: 66 in Wt: 154 lb BMI: 24.9 kg/m2 IBW: [address] Assessment: (05/25) 78 YOM admitted for conjunctivitis of the R eye, seen today for LOS. Pt's daughter at bedside provided translation. Pt reports eating well HEAD WAITRESS and eating well currently, 75-100% of meals. Pt denies any GI distress. Pt reports UBW of 156#, denies wt loss. Chart reviewed. Labs and meds reviewed. Pt and daughter with no nutrition questions at time of visit. Will monitor and continue to follow. Current Diet: 1800 ADA Malnutrition Evaluation (05/25/19) The patient does not meet criteria for a specified degree of malnutrition at this time. Will re-evaluate at follow-up as appropriate. Diet Education Needs Assessment: Diet education not indicated. Diet tolerance: Nutrition Care Level: Low Signed: Ida Elizalde RD, LD, [facility]
--- NOTE | 2019-05-25 19:09 | NUR ---
REPORT GIVEN TO ONCOMING NURSE. WALKING ROUNDS DONE. PATIENT IS SITTING UP IN COUCH. NO ACUTE DISTRESS NOTED. CALL LIGHT WITHIN REACH. BED IN THE LOWEST POSITION.
--- NOTE | 2019-05-25 19:10 | NUR ---
PT IS RESTING IN THE CHAIR. RESPIRATION IS EVEN AND UNLABORED, NO DISTRESS NOTED. BED IN THE LOWEST POSITION, LOCKED, AND CALL LIGHT WITHIN REACH. WILL CONTINUE TO MONITOR.
[2019-05-25] MEDS: HYDRALAZINE HCL 20 MG/ML VIAL IV PRN (19:31)
[2019-05-25] MEDS: NON-FORMULARY MEDICATION PO SCH (20:50)
[2019-05-26] VITALS: BP 161/69
[2019-05-26] MEDS: HYDRALAZINE HCL 20 MG/ML VIAL IV PRN (00:15)
[2019-05-26 04:00] VITALS: BP 127/59
--- NOTE | 2019-05-26 06:56 | NUR ---
received shift change report from mine shifter RN, pt resting in bed, easily aroused, alert, oriented, no signs of distress noted, will continue to monitor.
[2019-05-26] MEDS: INSULIN REGULAR, HUMAN 100 UNIT/1 ML 3ML VIAL SQ SCH ×4 (07:30→21:00)
[2019-05-26 07:43] LABS: BASOPHILS # (AUTO) 0.1 (0.0-0.1); BASOPHILS % 0.4 % (0.0-1.0); EOSINOPHILS # (AUTO) 0.3 (0.0-0.4); EOSINOPHILS % 1.6 % (0.0-6.0); HEMATOCRIT 41.8 % (38.2-49.6); HEMOGLOBIN 13.8 g/dL (14.0-18.0); LYMPHOCYTES # (AUTO) 8.4 (1.0-3.2); LYMPHOCYTES % 51.8 % (18.0-39.1); MEAN CORPUSCULAR HEMOGLOBIN 31.7 pg (28-32); MEAN CORPUSCULAR VOLUME 95.9 fL (81-99); MONOCYTES # (AUTO) 0.7 (0.2-0.8); MONOCYTES % 4.3 % (4.4-11.3); NEUTROPHILS # (AUTO) 6.8 (2.1-6.9); NEUTROPHILS % 41.7 % (38.7-80.0); PLATELET COUNT 159 x10e3/uL (140-360); RED BLOOD COUNT 4.36 x10e6/uL (4.3-5.7); RED CELL DISTRIBUTION WIDTH 15.5 % (11.7-14.4)
[2019-05-26 08:00] VITALS: BP 160/70
[2019-05-26 08:09] LABS: ALBUMIN 3.1 g/dL (3.5-5.0); ALBUMIN/GLOBULIN RATIO 0.8 (0.8-2.0); CALCIUM 10.1 mg/dL (8.4-10.2); CREATININE, SERUM 11.2 mg/dL (0.72-1.25)
[2019-05-26 08:52] VITALS: BP 127/59
[2019-05-26 09:28] LABS: EOSINOPHILS % (MANUAL) 1 % (0-7); LYMPHOCYTES % (MANUAL) 42 % (19-48); MONOCYTES % (MANUAL) 1 % (3.4-9.0); NEUTROPHILS % (MANUAL) 41 % (40-74); PLATELET ESTIMATE ADEQUATE; PLATELET MORPHOLOGY COMMENT NORMAL; RBC MORPHOLOGY COMMENT NORMAL
[2019-05-26] MEDS: PIPERACILLIN/TAZO 2.25 GM 50 ML IV SCH ×2 (10:16→21:15)
[2019-05-26] MEDS: TOBRAMYCIN 0.3% (OPTH) 5 ML BTL OP SCH ×4 (10:23→21:00)
[2019-05-26] MEDS: CALCIUM ACETATE 667 MG GELCAP PO SCH ×3 (10:23→17:30)
[2019-05-26] MEDS: FOLIC ACID/CYANOCOB/PYRIDOXINE TAB PO SCH (10:23)
[2019-05-26] MEDS: PREDNISOLONE ACETATE 1% OPTH SUSP 5 ML BTL OP SCH ×4 (10:23→21:00)
[2019-05-26] MEDS: ALLOPURINOL 100 MG TAB PO SCH (10:24)
[2019-05-26 12:00] VITALS: BP 158/70
[2019-05-26] MEDS: TOBRAMYCIN/DEXAMETHASONE(OPTH) 3.5 GM TUBE OP SCH ×2 (14:01→21:00)
[2019-05-26 16:00] VITALS: BP 160/72
[2019-05-26] MEDS: VANCOMYCIN 1GM/NS 250 ML 250 ML IV SCH (17:00)
--- NOTE | 2019-05-26 19:15 | NUR ---
patient received awake, alert, lying quietly in bed. no c/o pain noted. pm assessment complete. patient/family refusing hemodialysis tonight. dialysis nurse notified of this by Jaspreet Mai LVN. pm assessment complete. patient instructed to call for assistance when needed.
--- NOTE | 2019-05-26 20:45 | NUR ---
Received report from nurse.
[2019-05-26] MEDS: NON-FORMULARY MEDICATION PO SCH (21:00)
[2019-05-27] VITALS (7 sets, daily range): BP systolic 135–191; BP diastolic 65–84
--- NOTE | 2019-05-27 | NUR ---
Patient resting quitly with family at bedside,
[2019-05-27] MEDS: METHYLPREDNISOLONE SOD SUCC 40 MG/ML VIAL 1ML IV SCH ×3 (05:33→21:44)
--- NOTE | 2019-05-27 06:35 | NUR ---
No noted changes in patient condition at this time, Continue monitor.
--- NOTE | 2019-05-27 07:02 | NUR ---
shift change report received from shift production associate RN, pt resting comfortably in bed, respirations even and nonlabored, no signs of distress, call light within reach.
[2019-05-27] MEDS: INSULIN REGULAR, HUMAN 100 UNIT/1 ML 3ML VIAL SQ SCH ×4 (07:30→21:00)
[2019-05-27] MEDS: FOLIC ACID/CYANOCOB/PYRIDOXINE TAB PO SCH (09:19)
[2019-05-27] MEDS: CALCIUM ACETATE 667 MG GELCAP PO SCH ×3 (09:19→18:21)
[2019-05-27] MEDS: TOBRAMYCIN 0.3% (OPTH) 5 ML BTL OP SCH ×4 (09:33→21:00)
[2019-05-27] MEDS: TOBRAMYCIN/DEXAMETHASONE(OPTH) 3.5 GM TUBE OP SCH ×2 (09:33→21:00)
[2019-05-27] MEDS: PIPERACILLIN/TAZO 2.25 GM 50 ML IV SCH ×2 (09:33→21:15)
[2019-05-27] MEDS: PREDNISOLONE ACETATE 1% OPTH SUSP 5 ML BTL OP SCH ×4 (09:33→21:00)
[2019-05-27] MEDS: ALLOPURINOL 100 MG TAB PO SCH (09:33)
--- NOTE | 2019-05-27 14:59 | Progress Note ---
DATE: 05/27/2019 SUBJECTIVE: Seen on dialysis, tolerating procedure, still has some swelling and redness on the eye. OBJECTIVE: On examination sitting up, periorbital swelling. VITAL SIGNS: Temperature 98, blood pressure 189/84, pulse 73. CHEST: Clear. EXTREMITIES: No edema. ABDOMEN: Benign. LABORATORY DATA: White count elevated case 5.0, creatinine 11, BUN 58. ASSESSMENT: End-stage renal disease, history of leukemia, hypertension, prior pulmonary embolism, type 2 diabetes. PLAN: Hemodialysis today, tying to pull of 3 L of fluid, 2 potassium bath. Please see the orders for further details. Continue binders with hyperphosphatemia. Add losartan 50 mg daily. Ji Cardozo MD [facility] /[id number]
--- NOTE | 2019-05-27 16:19 | Progress Note ---
DATE: SUBJECTIVE: Mr. Landa is currently on dialysis, but doing quite well. REVIEW OF SYSTEMS: HEENT: Negative. His eyes much better. PULMONARY: Negative. CARDIAC: Negative. PHYSICAL EXAMINATION: GENERAL: He is currently alert, oriented, does not seem to be in acute distress. VITAL SIGNS: His vitals are stable currently afebrile. HEENT: Normocephalic not icteric. NECK: Supple. CHEST: Clear bilateral. HEART: S1, S2. No S3, S4, or murmur. ABDOMEN: Soft. Bowel sounds present. No tenderness. NEUROLOGIC: In the face, there is no redness or swelling at the present time. IMPRESSION: 1. Perioperative cellulitis, resolved. 2. From Infectious Disease point of view, can discontinue antibiotic. Can work on discharge planning. 3. End-stage disease, on hemodialysis. 4. Debility. 5. We will follow. MD ALBERT Grossman/ANTON /[id number]
--- NOTE | 2019-05-27 19:21 | NUR ---
Received change of shift report from AM nurse. Walking rounds completed.
[2019-05-27] MEDS: NON-FORMULARY MEDICATION PO SCH (21:00)
--- NOTE | 2019-05-27 21:00 | NUR ---
BS 185, insulin given as ordered by MD. Patient denies pain or discomfort. at the bedside. Continue monitor.
[2019-05-28] VITALS (7 sets, daily range): BP systolic 138–166; BP diastolic 65–82
--- NOTE | 2019-05-28 02:50 | NUR ---
Patient resting quitly with no c/o at this time.
[2019-05-28] MEDS: METHYLPREDNISOLONE SOD SUCC 40 MG/ML VIAL 1ML IV SCH ×3 (05:50→22:10)
--- NOTE | 2019-05-28 06:07 | Progress Note ---
DATE: SUBJECTIVE: The patient did well overnight. He states he has no pain. He states he can still see out of his eye okay, but his eyelid still is slightly swollen. PHYSICAL EXAMINATION: VITAL SIGNS: Temperature 96.0, pulse 73, blood pressure 166/76, sats 98% on room air. GENERAL: No apparent distress, lying in bed. HEENT: Right eyelids are still swollen, but appear to be improved and the sclera is still very red, but it is less red than the day before and he can still count fingers well appropriately. CARDIOVASCULAR: Regular rate and rhythm. LUNGS: Clear to auscultation bilaterally. ABDOMEN: Good bowel sounds. Soft, nontender. EXTREMITIES: No clubbing or cyanosis. NEUROLOGIC: Nonfocal. ASSESSMENT AND PLAN: 1. Preoperative cellulitis. Continue with antibiotics. 2. Conjunctivitis. Continue with the topical steroids as well as IV steroids. 3. Hypertension. Continue with his medications and monitoring. 4. Diabetes. Continue to monitor. 5. End-stage renal disease. Continue with current care per Renal. 6. Leukocytosis. Continue to monitor. Please see hospital chart for full details. MD MARIA D Best/ANTON /[id number]
--- NOTE | 2019-05-28 06:59 | NUR ---
received shift report from shift boss RN, pt laying in bed, semi-fowlers, awake, alert, no signs of distress, will continue to monitor.
[2019-05-28] MEDS: LOSARTAN POTASSIUM 100 MG TAB PO SCH (08:49)
[2019-05-28] MEDS: CALCIUM ACETATE 667 MG GELCAP PO SCH ×3 (08:50→17:11)
[2019-05-28] MEDS: INSULIN REGULAR, HUMAN 100 UNIT/1 ML 3ML VIAL SQ SCH ×4 (08:50→21:00)
[2019-05-28] MEDS: ALLOPURINOL 100 MG TAB PO SCH (08:50)
[2019-05-28] MEDS: FOLIC ACID/CYANOCOB/PYRIDOXINE TAB PO SCH (08:51)
[2019-05-28] MEDS: PIPERACILLIN/TAZO 2.25 GM 50 ML IV SCH ×2 (08:51→21:15)
[2019-05-28] MEDS: TOBRAMYCIN 0.3% (OPTH) 5 ML BTL OP SCH ×4 (08:57→20:45)
[2019-05-28] MEDS: PREDNISOLONE ACETATE 1% OPTH SUSP 5 ML BTL OP SCH ×4 (08:57→20:44)
[2019-05-28] MEDS: TOBRAMYCIN/DEXAMETHASONE(OPTH) 3.5 GM TUBE OP SCH ×2 (08:57→20:45)
--- NOTE | 2019-05-28 16:00 | NUR ---
Visit made by the Spiritual Care Department Pastoral Visitor, Gaurav Nolasco. PV provided pastoral presence, communion, and supportive listening. Pastoral Visitor informed pt/family of the scope of [employer] and availability. LEANN NINO It Trainee Spiritual Care Department O: [phone] Pager: [phone] ([phone] number calling from)
--- NOTE | 2019-05-28 19:22 | NUR ---
RECEIVE DPT IN BED AOX3 .RT EYE SWOLLEN .RESPIRATIONS ARE EVEN AND UNLABORED RT FA 20 G S/L FAMILY AT THE BEDSIDE .CALL LIGHT WITH IN REACH.CONTINUE TO MONITOR
[2019-05-28] MEDS: NON-FORMULARY MEDICATION PO SCH (21:00)
[2019-05-29] VITALS (9 sets, daily range): BP systolic 143–169; BP diastolic 72–79
[2019-05-29] MEDS: METHYLPREDNISOLONE SOD SUCC 40 MG/ML VIAL 1ML IV SCH ×3 (05:49→22:21)
--- NOTE | 2019-05-29 07:01 | NUR ---
BEDSIDE REPORT GIVEN TO THE ONCOMING NURSE
[2019-05-29] MEDS: INSULIN REGULAR, HUMAN 100 UNIT/1 ML 3ML VIAL SQ SCH ×4 (07:30→21:00)
[2019-05-29] MEDS: PREDNISOLONE ACETATE 1% OPTH SUSP 5 ML BTL OP SCH ×4 (08:15→21:00)
[2019-05-29] MEDS: LOSARTAN POTASSIUM 100 MG TAB PO SCH (08:15)
[2019-05-29] MEDS: TOBRAMYCIN 0.3% (OPTH) 5 ML BTL OP SCH ×4 (08:15→21:00)
[2019-05-29] MEDS: CALCIUM ACETATE 667 MG GELCAP PO SCH ×3 (08:15→18:00)
[2019-05-29] MEDS: FOLIC ACID/CYANOCOB/PYRIDOXINE TAB PO SCH (08:15)
[2019-05-29] MEDS: ALLOPURINOL 100 MG TAB PO SCH (08:15)
[2019-05-29] MEDS: PIPERACILLIN/TAZO 2.25 GM 50 ML IV SCH ×2 (08:15→21:15)
[2019-05-29] MEDS: TOBRAMYCIN/DEXAMETHASONE(OPTH) 3.5 GM TUBE OP SCH ×2 (08:15→22:19)
[2019-05-29 09:19] LABS: BASOPHILS % 0.1 % (0.0-1.0); HEMATOCRIT 42.8 % (38.2-49.6); HEMOGLOBIN 13.9 g/dL (14.0-18.0); LYMPHOCYTES # (AUTO) 5.1 (1.0-3.2); LYMPHOCYTES % 36.3 % (18.0-39.1); MEAN CORPUSCULAR HEMOGLOBIN 30.7 pg (28-32); MEAN CORPUSCULAR HGB CONC 32.5 g/dL (31-35); MEAN CORPUSCULAR VOLUME 94.5 fL (81-99); MONOCYTES # (AUTO) 0.2 (0.2-0.8); MONOCYTES % 1.3 % (4.4-11.3); NEUTROPHILS # (AUTO) 8.8 (2.1-6.9); PLATELET COUNT 190 x10e3/uL (140-360); RED BLOOD COUNT 4.53 x10e6/uL (4.3-5.7); RED CELL DISTRIBUTION WIDTH 15.3 % (11.7-14.4)
[2019-05-29 09:42] LABS: ALBUMIN 3.1 g/dL (3.5-5.0); ALBUMIN/GLOBULIN RATIO 0.8 (0.8-2.0); ANION GAP 25.1 mmol/L (8-16); CREATININE, SERUM 10.37 mg/dL (0.72-1.25); POTASSIUM 5.1 mmol/L (3.5-5.1)
[2019-05-29 10:08] LABS: LYMPHOCYTES % (MANUAL) 37 % (19-48); MONOCYTES % (MANUAL) 2 % (3.4-9.0); NEUTROPHILS % (MANUAL) 61 % (40-74)
[2019-05-29 10:10] LABS: PLATELET ESTIMATE ADEQUATE; PLATELET MORPHOLOGY COMMENT NORMAL; RBC MORPHOLOGY COMMENT NORMAL
--- NOTE | 2019-05-29 16:54 | NUR ---
late entery 05/28/19 UBJECTIVE: Mr. Landa is with no new complaint , but doing quite well. MEDICATION LIST noted REVIEW OF SYSTEMS: HEENT: Negative. His eyes much better. PULMONARY: Negative. CARDIAC: Negative. skin neg no fever no chills PHYSICAL EXAMINATION: vital seen and stable GENERAL: He is currently alert, oriented, does not seem to be in acute distress. VITAL SIGNS: His vitals are stable currently afebrile. HEENT: Normocephalic not icteric. NECK: Supple. CHEST: Clear bilateral. HEART: S1, S2. No S3, S4, or murmur. ABDOMEN: Soft. Bowel sounds present. No tenderness. NEUROLOGIC: non focal face, there is no redness or swelling at the present time. IMPRESSION: 1. Perioperative cellulitis, resolved. 2. From Infectious Disease point of view, can discontinue antibiotic. Can work on discharge planning. 3. End-stage disease, on hemodialysis. 4. Debility. stable
--- NOTE | 2019-05-29 16:57 | NUR ---
patient is doing well no new problems labs reviewed meds reveiwed PE alert oriented nad heent not pale or iicteric neck supple no jvd chest clear cor S1S2 ABDOMEN soft bs pos face stable a/p cellulitis face resolved CKD ON HD DEBILITY pt/ot
[2019-05-29] MEDS: VANCOMYCIN 1GM/NS 250 ML 250 ML IV SCH (18:00)
--- NOTE | 2019-05-29 18:20 | NUR ---
dialysis completed at this time. patient's vitals are stable and 3 liters were removed.
--- NOTE | 2019-05-29 19:30 | NUR ---
RECEIVE DPT IN BED AOX3 .RT EYE LOOKS BETTER THAN YESTERDAY .RESPIRATIONS ARE EVEN AND UNLABORED RT FA 20 G S/L FAMILY AT THE BEDSIDE .CALL LIGHT WITH IN REACH.CONTINUE TO MONITOR
[2019-05-29] MEDS: NON-FORMULARY MEDICATION PO SCH (21:00)
[2019-05-30 04:00] VITALS: BP 152/83
[2019-05-30] MEDS: METHYLPREDNISOLONE SOD SUCC 40 MG/ML VIAL 1ML IV SCH (05:54)
--- NOTE | 2019-05-30 05:57 | NUR ---
[email or web address]
--- NOTE | 2019-05-30 07:00 | NUR ---
RECEIVED AM REPORT FROM NURSE AND ROUNDS DONE. PT IS ALERT RESTING IN BED, NO S/S OF DISTRESS. CALL LIGHT WITHIN REACH AND INSTRUCTED PT TO CALL NURSE FOR HELP
--- NOTE | 2019-05-30 07:23 | NUR ---
BEDSIDE REPORT GIVEN TO THE ONCOMING NURSE
[2019-05-30 08:00] VITALS: BP 174/75
[2019-05-30] MEDS: INSULIN REGULAR, HUMAN 100 UNIT/1 ML 3ML VIAL SQ SCH ×2 (08:30→13:09)
[2019-05-30] MEDS: LOSARTAN POTASSIUM 100 MG TAB PO SCH (09:14)
[2019-05-30] MEDS: FOLIC ACID/CYANOCOB/PYRIDOXINE TAB PO SCH (09:14)
[2019-05-30] MEDS: ALLOPURINOL 100 MG TAB PO SCH (09:14)
[2019-05-30] MEDS: CALCIUM ACETATE 667 MG GELCAP PO SCH ×2 (09:14→13:09)
[2019-05-30] MEDS: PIPERACILLIN/TAZO 2.25 GM 50 ML IV SCH (09:15)
[2019-05-30] MEDS: TOBRAMYCIN/DEXAMETHASONE(OPTH) 3.5 GM TUBE OP SCH (09:19)
[2019-05-30] MEDS: PREDNISOLONE ACETATE 1% OPTH SUSP 5 ML BTL OP SCH ×2 (09:19→13:10)
[2019-05-30] MEDS: TOBRAMYCIN 0.3% (OPTH) 5 ML BTL OP SCH ×2 (09:19→13:10)
[2019-05-30 10:14] VITALS: BP 174/75
[2019-05-30 12:00] VITALS: BP 120/64
--- NOTE | 2019-05-30 12:00 | NUR ---
Spoke to Dr. Becerra about antibiotics plan. states patient has been cleared since the weekend to d/c from his standpoint. YAMINI Lange notified.
[2019-05-30 15:52] VITALS: BP 181/79
--- NOTE | 2019-05-30 16:21 | NUR ---
CONTACTED DR. HAWKINS AND ASKED IF THE PATIENT COULD BE DISCHARGED. DR. SWENSON HAS CLEARED THE PATIENT TO GO HOME WITH NO ANTIBIOTICS. DR. HAWKINS WILL CALL IN PRESCRIPTIONS TO THE PATIENTS PREFERRED PHARMACY
--- NOTE | 2019-05-30 16:23 | NUR ---
[id number] DISCUSSED with family
--- NOTE | 2019-05-30 17:01 | NUR ---
CALLED DR. HUYNH'S OFFICE AND REQUESTED THAT THE CALL IN RX'S TO THE PATIENT'S PREFERRED PHARMACY FOR THE TOBRAMYCIN AND PREDNISOLONE EYE DROPS AND THE TOBRADEX EYE OINTMENT.
--- NOTE | 2019-05-30 18:34 | History and Physical ---
SUBJECTIVE: Mr. Landa is feeling better. REVIEW OF SYSTEMS: HEENT: Negative. PULMONARY: Negative. CARDIAC: Negative. PHYSICAL EXAMINATION: GENERAL: Currently alert, oriented, does not seem to be in acute distress. VITAL SIGNS: Stable. Currently afebrile. HEENT: Normocephalic. Not icteric. NECK: Supple. CHEST: Clear bilateral. HEART: S1, S2. No murmur. ABDOMEN: Soft. He seems to be doing much better. IMPRESSION AND PLAN: Cellulitis preorbital, improving. From Infectious Disease point of view, can be discharged home with no antibiotic. MD ALBERT Grossman/ANTON /[id number]
--- NOTE | 2019-06-18 19:23 | Discharge Summary ---
DISCHARGE DIAGNOSES: 1. Right eye periorbital cellulitis. 2. End-stage renal disease. 3. Diabetes. 4. Hypertension. HISTORY OF PRESENT ILLNESS AND HOSPITAL COURSE: The patient is a gentleman, who presented with a right eye swelling and redness that started the week prior, and progressively got worse to the point where his right eye was swollen shut, both in the eyelids as well as the sclera. He was brought in, placed on IV antibiotics, had a CT scan showing evidence of preorbital cellulitis, but no abscess formation. He was seen by Ophthalmology, who continued with the antibiotics as well as eyedrops. He is also seen by Dr. Becerra and maintained on his dialysis while in the hospital. The patient had slow, but steady progress. At the time of discharge, he was cleared by both Ophthalmology and Infectious Disease to be discharged on p.o. medicines as well as eyedrops. Please see hospital chart for full details. Follow up in [address] March of Ophthalmology as well as Dr. Becerra as well as myself. Please see hospital chart for full details. MD MARIA D Best/ANTON /[id number]
== END 2019-05-30 17:15 | disposition home or self-care (01) | DRG 871 ==
LOC: ER 18:24 → ERHOLD 21:16 → MED/SURG3 22:10
PROVIDERS: ADMIT Internal Medicine; ATTEND Internal Medicine
PROC: 5A1D70Z Performance of Urinary Filtration, Intermittent, Less than 6 Hours Per Day (ICD-10-PCS; principal; 2019-05-29)
DX: A41.9 Sepsis, unspecified organism (principal); N18.6 End stage renal disease; H05.011 Cellulitis of right orbit; I12.0 Hypertensive chronic kidney disease with stage 5 chronic kidney disease or end stage renal disease; H10.9 Unspecified conjunctivitis; E11.22 Type 2 diabetes mellitus with diabetic chronic kidney disease; Z99.2 Dependence on renal dialysis; E11.51 Type 2 diabetes mellitus with diabetic peripheral angiopathy without gangrene; E11.319 Type 2 diabetes mellitus with unspecified diabetic retinopathy without macular edema; Z79.4 Long term (current) use of insulin; I25.10 Atherosclerotic heart disease of native coronary artery without angina pectoris; E78.5 Hyperlipidemia, unspecified; D69.6 Thrombocytopenia, unspecified; M10.9 Gout, unspecified; Z85.6 Personal history of leukemia; E87.5 Hyperkalemia; D63.1 Anemia in chronic kidney disease
CPT/HCPCS: 36415; 70480; 80048; 80053; 82948; 85025; 86706; 87040; 87350; 90962; 99284; J0360; J1817; J2543; J2920; J3370; J7030; J7050; Q0162

== ENCOUNTER 2019-12-02 19:35 | Emergency (ER) | payer MEDICARE ==
[~2019-12-02] VITALS: Ht 167.6 cm; Wt 64.9 kg
[~2019-12-02 19:35] MED LIST changes: +ALLOPURINOL100 MG PO; +CALCIUM ACETAT667 M1 PO; +DIALYVITE 8000.8 M1 PO; +FIRAZYR30 MG/3 ML SC; +IMBRUVICA140 MG PO
[2019-12-02] MEDS ORDERED: TRAMADOL HCL 50 MG TAB PO NR (20:00)
--- NOTE | 2019-12-02 20:38 | Diagnostic Imaging Report ---
KNEE RIGHT THREE VIEWS - 3 views HISTORY: Pain. COMPARISON: None available. FINDINGS: Bones: No acute displaced fracture. Osseous alignment is within normal limits. Joints: Moderate tricompartmental degenerative changes with joint space narrowing and marginal osteophytosis. Soft tissues: Small knee joint effusion. IMPRESSION: Moderate right knee arthrosis. No acute osseous abnormality. Small knee joint effusion. Signed by: Papi Sheets MD on 12/02/2019 8:35 PM
== END 2019-12-02 22:29 | disposition home or self-care (01) ==
LOC: ER 19:35
DX: M25.561 Pain in right knee (principal); M25.461 Effusion, right knee
CPT/HCPCS: 99283

== ENCOUNTER 2019-12-13 13:07 | Emergency (ER) | payer MEDICARE ==
[~2019-12-13] VITALS: Ht 167.6 cm; Wt 64.9 kg
--- OUTSIDE RECORDS SUMMARY | 2019-12-13 13:11 | XMS REPORT | Clinical Summary ---
Author Author [facility] Address Unknown Phone Unavailable Care Team Providers Care Acquisition Marketing Manager Name Role Phone Kei Cunha PCP Allergies No Known Allergies Medications No known medications Active Problems Problem Noted Date ESRD (end stage renal disease) on dialysis 8 Social History Date Tobacco Use Types Packs/Day [...] file Plan of Treatment Not on file Results Not on fileafter 12/12/2018 Insurance Payer Benefit Subscriber ID Type Phone Address Plan / Group [employer] CIGNA xxxxxxxxxxx [facility] [employer] Contracted ALL [id number] [facility] [id number] amily (Home) [place] [phone] Advance Directives For more information, please contact: [facility] [address] [place] [address] Date Inactivated Comments Code Status Date Activated 12/31/2017 9:35 PM Full Code 12/31/2017 11:29 AM This code status was determined by: Patient
--- OUTSIDE RECORDS SUMMARY | 2019-12-13 13:12 | XMS REPORT ---
Author Author [facility] t Organization [facility] Address [address] [place] [address] Phone Unavailable Care Team Providers Care Engineering Test Mechanic Name Role Phone MD TSEVEN HAWKINS MD PCP Alejandra PETERSON Attphys Unavailable Shahzad HOPSON Attphys Unavailable STEVEN HAWKINS Attphys Unavailable MARIA VICTORIA, MOHAMED Attphys Unavailable LETSOU, NELL ROULA Attphys Unavailable STEVEN HAWKINS Admphys Unavailable LETSOU, NELL ROULA Admphys Unavailable Payers Payer Name Policy Type Policy Number Effective Date Expiration Date Chandana walker [facility] [id number] 2018 00:00:00 [facility] [id number] 2018 00:00:00 [facility] [id number] 2017 00:00:00 [facility] Advance Directives Directive Decision Effective Date Termination Date Comments Sour ce Yes N/A [facility] Problems Condition Name Condition Details Condition Category Status Onset Date Resolution Date Last Treatment Date Treating Clinician Comments Source Gastrointestinal hemorrhage GI bleed Problem Active 2014-09-23 00:00:00 [facility] Acute renal failure superimposed on chronic kidney dis ease Acute on chronic renal failure Problem Active [facility] Pruritus Pruritus Problem Active [facility] Uremia Uremia Problem Active [facility] Angioedema Angio-edema Problem Active [facility] End stage renal failure on dialysis ESRD on dialysis Problem Active [facility] Conjunctivitis Conjunctivitis Problem Active [facility] Cellulitis of right orbital region Orbital cellulitis on right Proble m Active [facility] Allergies, Adverse Reactions, Alerts This patient has no known allergies or adverse reactions. Social History Social Habit Start Date Stop Date Quantity Comments Source Sex Assigned At 1940 00:00:00 1940 00:00:00 Male [facility] Medications Ordered Medication Name Filled Medication Name Start Date Stop Da te Current Medication? Ordering Clinician Indication Dosage Frequency Signature (SIG) Comments Components Source Allopurinol Allopurinol Yes 100 C HI [facility] Calcium Acetate Calcium Acetate Yes 2 [facility] Folic Acid/Vitamin B Comp W-C (Dialyvite 800 Tablet) 0 .8 Mg TABLET Folic Acid/Vitamin B Comp W-C (Dialyvite 800 Tablet) 0.8 Mg TABLET Yes 1 [facility] ical [place] Ibrutinib (Imbruvica) 140 Mg CAPSULE Ibrutinib (Imbruvica) 140 Mg C APSULE Yes 140 [facility] Icatibant Acetate (Firazyr) 30 Mg/3 Ml DISP.SYRIN Icat ibant Acetate (Firazyr) 30 Mg/3 Ml DISP.SYRIN Yes 30 C HI [facility] Prednisone Prednisone 2019-05-20 00:00:00 No 10 [facility] Tamsulosin Hcl (Flomax*) 0.4 Mg CAP Tamsulosin Hcl (Flomax*) 0.4 Mg CAP 2019-05-20 00:00:00 No .4 [facility] Warfarin Sodium (Coumadin) 1 Mg TABLET Warfarin Sodium (Coumadin ) 1 Mg TABLET 2017-08-13 00:00:00 No 1 [facility] Metronidazole (Flagyl) 500 Mg TABLET Metronidazole (Flagyl) 500 Mg TABLET 2014-09-23 00:00:00 No 500 [facility] Vital Signs Vital Name Observation Time Observation Value Comments Source Weight 2019-12-02 19:46:00 143 [lb_av] [facility] BMI (Body Mass Index) 2019-12-02 19:46:00 23.1 kg/m2 [facility] Body Temperature 2019-05-30 15:52:00 95.9 [degF] [facility] Procedures Procedure Date / Time Performed Performing Clinician [facility] e PERFORMANCE OF URINARY FILTRATION, <6 HRS/DAY 2019-05-29 00:00:0 0 [facility] Computed tomography of orbits, sella tur cica, and posterior cranial fossa without contrast 2019-05-20 00:00:00 SHIELA DASH [facility] Plan of Care Planned Activity Planned Date Details Comments Source Goal Patient referral [code = 2836363 ] [facility] Goal Patient referral [code = 4399603 ] [facility] Goal Patient referral [code = 9077009 ] [facility] Goal Patient referral [code = 3885555 ] [facility] Instructions Rheumatoid Arthritis [facility] Instructions Knee Overuse [facility] Encounters Start Date/Time End Date/Time Encounter Type Admission Type Attendi [facility] Emergency Department Facility Care Department Encounter ID Source 2019-12-02 19:35:00 2019-12-02 22:29:00 Departed Emergency Room 1 MICHAEL PETERSON [facility] [id number] Ximena [facility] 2019-05-20 21:16:00 2019-05-30 17:15:00 Discharged Inpatient 1 TALIA HOPSON [facility] [id number] [facility] 2019-01-03 06:53:00 2019-01-06 17:40:00 Discharged Inpatient [address] [facility] [id number] [facility] 2019-01-02 10:47:00 2019-01-02 10:47:00 Registered Clinic [address] [facility] [id number] [facility] 2018-01-31 20:52:00 2018-02-01 00:11:00 Departed Emergency Room [address] [facility] [id number] [facility] 2017-08-10 10:08:00 2017-08-13 16:56:00 Discharged Inpatient ER STEVEN HAWKINS [facility] [id number] [facility] Results Test Description Test Time Test Comments Results Result Comments Source KNEE RIGHT THREE VIEWS 2019-12-02 20:31:00 [place] [address] Patient Name: CHARLOTTE MARTINEZ MR #: [id number] : 1940 Age/Sex: 79/M Req #: [id number] Adm Physician: Ordered by: DOLLY CRAWFORD DISTRIBUTION ENGINEER Report #: [id number] Location: ER Room/Bed: Procedure: [id number] DX/KNEE RIGHT THREE VIEWS Exam Date: 12/02/19 Exam Time: 2019 REPORT STATUS: Signed KNEE RIGHT THREE VIEWS - 3 views HISTORY: Pain. COMPARISON: None available. FINDINGS: Bones: No acute displaced fracture. Osseous alignment is within normal limits. Joints: Moderate tricompartmental degenerative changes with joint space narrowing and marginal osteophytosis. Soft tissues: Small knee joint effusion. IMPRESSION: Moderate right knee arthrosis. No acute osseous abnormality. Small knee joint effusion. Signed by: Caity Villarreal MD on 12/02/2019 8:35 PM Dictated By: CAITY VILLARREAL MD 34 Transcribed By: HARRIS on 12/02/192034 COPY TO: DOLLY CRAWFORD NP Capillary blood glucose measurement by glucometer (mas s/volume) 2019-05-30 10:55:00 Test Item Bedside Glucose (test code = 57131-2) 279 [facility] [place] leukocytes automated count (number/volume)2019-05-29 09:10:00* Test Item Value Reference Range Interpretation Comments White Blood Count (test code = 6690-2) 14.12 [facility] [place] erythrocytes automated count (number/volume)2019-05-29 09:10:00* Test Item Value Reference Range Interpretation Comments Red Blood Count (test code = 789-8) 4.53 [facility] hemoglobin measurement (moles/volume)2019-05-29 09:10:00* Test Item Value Reference Range Interpretation Comments Hemoglobin (test code = 89904-9) 13.9 [facility] NorthwestAutomated blood hematocrit (volume fraction)2019-05-29 09:10:00* Test Item Value Reference Range Interpretation Comments Hematocrit (test code = 4544-3) 42.8 [facility] NorthwestAutomated erythrocyte mean corpuscular rpmxmr3038-07-21 09:10:00* Test Item Value Reference Range Interpretation Comments Mean Corpuscular Volume (test code = 787-2) 94.5 [facility] Northwest[facility] erythrocyte mean corpuscular hemoglobin (mass per erythrocyte)2019-05-29 09:10:00* Test Item Value Reference Range Interpretation Comments Mean Corpuscular Hemoglobin (test code = 785-6) 30.7 [facility] NorthwestAutomated erythrocyte mean corpuscular hemoglobin concentration measurement (mass/volume)2019-05-29 09:10:00* Test Item Value Reference Range Interpretation Comments Mean Corpuscular Hemoglobin Concent (test code = 786-4) 32.5 [facility] NorthwestRDW UmyVt-Zsn2300-97-28 09:10:00* Test Item Value Reference Range Interpretation Comments Red Cell Distribution Width (test code = 06790-0) 15.3 [facility] Northwest[facility] blood platelet count (count/volume)2019-05-29 09:10:00* Test Item Value Reference Range Interpretation Comments Platelet Count (test code = 777-3) 190 [facility] segmented neutrophil count as percentage of total kvwhraqjew8639-66-95 09:10:00* Test Item Value Reference Range Interpretation Comments Neutrophils (%) (Auto) (test code = 57447-0) 62.0 [facility]Aut[facility]ed [facility] lymphocyte count as percentage ot total dryfagwodx3861-04-64 09:10:00* Test Item Value Reference Range Interpretation Comments Lymphocytes (%) (Auto) (test code = 736-9) 36.3 [facility] NorthwestAutomated blood monocyte count as percentage of total difcrluyge0758-94-01 09:10:00* Test Item Value Reference Range Interpretation Comments Monocytes (%) (Auto) (test code = 5905-5) 1.3 [facility] NorthwestAutom[facility] blood eosinophil count as percentage of total bckjsbiwkj3646-33-51 09:10:00* Test Item Value Reference Range Interpretation Comments Eosinophils (%) (Auto) (test code = 713-8) 0.0 [facility] NorthwestAutomated blood basophil count as percentage of total tgrxfaemgt9387-72-53 09:10:00* Test Item Value Reference Range Interpretation Comments Basophils (%) (Auto) (test code = 706-2) 0.1 [facility] NorthwestFluoroscopic procedure less than one hour lcftdbsx5361-04-24 09:10:00* Test Item Value Reference Range Interpretation Comments IM GRANULOCYTES % (test code = IM GRANULOCYTES %) 0.3 [facility] NorthwestAutomated blood neutrophil count 2019-05-29 09:10:00* Test Item Value Reference Range Interpretation Comments Neutrophils # (Auto) (test code = 751-8) 8.8 [facility] NorthwestBlood lymphocytes count (number/volume) 2019-05-29 09:10:00* Test Item Value Reference Range Interpretation Comments Lymphocytes # (Auto) (test code = 42028-1) 5.1 [facility] monocytes automated count (number/volume)2019-05-29 09:10:00* Test Item Value Reference Range Interpretation Comments Monocytes # (Auto) (test code = 742-7) 0.2 [facility]ed blood eosinophil count 2019-05-29 09:10:00* Test Item Value Reference Range Interpretation Comments Eosinophils # (Auto) (test code = 711-2) 0.0 [facility]Aut[facility] hospitaled blood basophil count (count/volume)2019-05-29 09:10:00* Test Item Value Reference Range Interpretation Comments Basophils # (Auto) (test code = 704-7) 0.0 [facility] NorthwestFluoroscopic procedure less than one hour wmrgvcau2269-82-88 09:10:00* Test Item Value Reference Range Interpretation Comments Absolute Immature Granulocyte (auto (mojgan t code = Absolute Immature Granulocyte (auto) 0.04 [facility] NorthwestFluoroscopic procedure less than one hour msaxhteh9837-43-58 09:10:00* Test Item Value Reference Range Interpretation Comments Differential Total Cells Counted (test code = Differen tial Total Cells Counted) 100 [facility] blood neutrophils/100 leukocytes 2019-05-29 09:10:00* Test Item Value Reference Range Interpretation Comments Neutrophils % (Manual) (test code = 17669-4) 61 [facility] blood lymphocytes/100 leukocytes 2019-05-29 09:10:00* Test Item Value Reference Range Interpretation Comments Lymphocytes % (Manual) (test code = 737-7) 37 [facility] monocytes/100 leukocytes 2019-05-29 09:10:00* Test Item Value Reference Range Interpretation Comments Monocytes % (Manual) (test code = 744-3) 2 [facility] NorthwestBlood platelets count by estimate (number/volume)2019-05-29 09:10:00* Test Item Value Reference Range Interpretation Comments Platelet Estimate (test code = 88346-8) ADEQUATE [facility] NorthwestPlatelet jgysmstchg6429-32-48 09:10:00* Test Item Value Reference Range Interpretation Comments Platelet Morphology Comment (test code = 81597-2) NORMAL [facility] NorthwestRB aoqfgtzqza0113-89-80 09:10:00* Test Item Value Reference Range Interpretation Comments Red Cell Morphology Comment (test code = 6742-1) [facility] sodium [facility] (moles/volume)2019-05-29 09:10:00* Test Item Value Reference Range Interpretation Comments Sodium Level (test code = 2951-2) 131 [facility] potassium measurement (moles/volume)2019-05-29 09:10:00* Test Item Value Reference Range Interpretation Comments Potassium Level (test code = 2823-3) 5.1 [facility] chloride measurement (moles/volume)2019-05-29 09:10:00* Test Item Value Reference Range Interpretation Comments Chloride Level (test code = 2075-0) 91 [facility] carbon dioxide, total measurement (moles/volume)2019-05-29 09:10:00* Test Item Value Reference Range Interpretation Comments Carbon Dioxide Level (test code = 2028-9) 20 [facility] anion alh8570-11-62 09:10:00* Test Item Value Reference Range Interpretation Comments Anion Gap (test code = 98785-2) 25.1 [facility] urea nitrogen measurement (mass/volume)2019-05-29 09:10:00* Test Item Value Reference Range Interpretation Comments Blood Urea Nitrogen (test code = 3094-0) 83 [facility] creatinine measurement (mass/volume)2019-05-29 09:10:00* Test Item Value Reference Range Interpretation Comments Creatinine (test code = 2160-0) 10.37 [facility] urea nitrogen/creatinine mass caaat4786-96-34 09:10:00* Test Item Value Reference Range Interpretation Comments BUN/Creatinine Ratio (test code = 3097-3) 8 [facility] NorthwestEstimated glomerular filtration rate (GFR) tifzfxsnzkcfq4007-66-61 09:10:00* Test Item Value Reference Range Interpretation Comments Estimat Glomerular Filtration Rate (test code = 336252784) 5 [facility] NorthwestGlucose yiqlppuzvng3493-03-71 09:10:00* Test Item Value Reference Range Interpretation Comments Glucose Level (test code = NLZ6500) 229 [facility] calcium measurement (mass/volume)2019-05-29 09:10:00* Test Item Value Reference Range Interpretation Comments Calcium Level (test code = 55644-4) 9.0 [facility] total bilirubin measurement (mass/volume)2019-05-29 09:10:00* Test Item Value Reference Range Interpretation Comments Total Bilirubin (test code = 1975-2) 0.4 [facility] NorthwestFluoroscopic procedure less than one hour uqbcoaah7110-99-20 09:10:00* Test Item Value Reference Range Interpretation Comments Aspartate Amino Transf (AST/SGOT) (test code = Aspartate Amino Transf (AST/SGOT)) 7 [facility] alanine aminotransferase measurement (enzymatic activity/volume)2019-05-29 09:10:00* Test Item Value Reference Range Interpretation Comments Alanine Aminotransferase (ALT/SGPT) (test code = 1742-6) 12 [facility] protein measurement (mass/volume)2019-05-29 09:10:00* Test Item Value Reference Range Interpretation Comments Total Protein (test code = 2885-2) 6.9 [facility] albumin measurement (mass/volume)2019-05-29 09:10:00* Test Item Value Reference Range Interpretation Comments Albumin (test code = 1751-7) 3.1 [facility] NorthwestPlasma globulin measurement (mass/volume) 2019-05-29 09:10:00* Test Item Value Reference Range Interpretation Comments Globulin (test code = 32316-9) 3.8 [facility] albumin/globulin mass rifxw5104-79-46 09:10:00* Test Item Value Reference Range Interpretation Comments Albumin/Globulin Ratio (test code = 1759-0) 0.8 [facility] plasma alkaline phosphatase measurement (enzymatic activity/volume)2019-05-29 09:10:00* Test Item Value Reference Range Interpretation Comments Alkaline Phosphatase (test code = 6768-6) 45 [facility] NorthwestManual blood eosinophil count as percentage of total gjdbwdqwvl1072-23-49 07:34:00* Test Item Value Reference Range Interpretation Comments Eosinophils % (Manual) (test code = 714-6) 1 [facility] NorthwestBlood lymphocytes variant count (number/volume)2019-05-26 07:34:00* Test Item Value Reference Range Interpretation Comments Reactive Lymphocytes (test code = 07043-2) 15 [facility] hepatitis B virus surface antibody assay by radioimmunoassay (units/volume)2019-05-22 16:11:00* Test Item Value Reference Range Interpretation Comments Hepatitis B Surface Antibody, Quant (test code = 5194-6) >1000.0 [facility] B virus e antigen detection by enzyme qllbhjzvhzn4636-91-93 16:11:00* Test Item Value Reference Range Interpretation Comments Hepatitis Be Antigen (test code = 82742-0) Negative [facility] NorthwestCT ORBIT/SELLA/PF DZ2066-64-61 20:26:00 [facility] [address] [place], [place] [address] Patient Name: CHARLOTTE MARTINEZ MR #: [id number] : 1940 Age/Sex: 78/M Req #: [id number] Adm Physician: Ordered by: SHIELA DASH MD Report #: [id number] Location: ER Room/Bed: Procedure: [id number]/CT ORBIT/SELLA/PF WO Exam Date: 05/20/19 Exam T jackelyn: 2004 REPORT STATUS: Signed History:Right eye redness and swelling. Comparison studies:None Techni que: Axial images were obtained through the orbits without contrast. Coron al and sagittal images reconstructed from the axial data. Dose modulation, ite rative reconstruction, and/or weight based adjustment of the mA/kV was utilize d to reduce the radiation dose to as low as reasonably achievable. Intraveno us contrast: None. Findings: Globes: Intact. The anterior and posterio r chambers are clear. Right intraocular lens is well visualized. Left eye pseu dophakia. Optic nerves: Normal in size and symmetric. Extraocular muscles: N ormal in size and symmetric. Intraconal abnormalities: None. Superior oph thalmic veins: Suboptimal evaluation due to lack of intravenous contrast, desp ite the limitation no significant abnormality Cavernous sinuses: Grossly symme tric. Pituitary stalk: At midline. Optic chiasm: Grossly unremarkable. Bon es: No abnormalities. Sinuses: Clear. Soft tissues: Mild right preseptal per iorbital soft tissue edema. No discrete post septal extension of inflammatory changes. Suboptimal evaluation for abscess due to lack of intravenous contrast . IMPRESSION: Mild right preseptal periorbital soft tissue cellulit is. Signed by: Dr. aMria R Bailey M.D. on 05/20/2019 8:34 PM Dicta nicholas By: MARIA R BAILEY MD 33 COPY TO: SHIELA DASH MD Blood vupxzjf0181-09-86 19:40:00* Test Item Value Reference Range Interpretation Comments Blood Culture (test code = 36058146) NO GROWTH AFTER 5 DAYS, FINAL REPORT [facility] SINGLE (PORTABLE)2019-01-04 05:43:00 [facility] [address] [place], [place] [address] Patient Name: CHARLOTTE MARTINEZ MR #: [id number] : 1940 Age/Sex: 78/M Req #: [id number] Adm Physician: STEVEN HAWKINS MD Ordered by: SHIELA DASH MD Report #: [id number] Location: ICU Room/Bed: ICU [facility] Procedure: [id number] DX/CHEST SINGLE (PORTABLE) Exam Date: 01/04/19 Ankush m Time: 414 REPORT STATUS: Signed EXAMINATION: CHEST SINGLE (PORTABLE) INDICATION: INTUBATED PT 20190104 Y COMPARISON: 01/03/2019 FINDINGS: AP view TUBES and LINES: Stable endotracheal tube. LUNGS: Low lung v olumes. Central vascular congestion. No definite focal consolidation. PLEURA: No pleural effusion or pneumothorax. HEART AND MEDIASTINUM: The c ardiomediastinal silhouette is enlarged. BONES AND SOFT TISSUES: No ac [place] osseous lesion. Soft tissues are unremarkable. UPPER ABDOMEN: No lauro e air under the diaphragm. IMPRESSION: Enlarged cardiomediastinal si lhouette and central vascular congestion, accentuated by low lung volumes. Signed by: Dr. Zhao Mitchell MD on 01/04/2019 5:44 AM Dictated By: YULIYA MITCHELL MD 3 Tra nscribed By: HARRIS on 01/04/19543 COPY TO: SHIELA DASH MD CHEST SINGLE (PORTABLE)2019-01-03 06:49:[address] [address] Patient Name: CHARLOTTE MARTINEZ MR #: [id number] : 1940 Age/Sex: 78/M Req #: [id number] Adm Physician: Ordered by: SHIELA DASH MD Report #: [id number] Location: ER Room/Bed: Procedure: 6 DX/CHEST SINGLE (PORTABLE) Exam Date: 01/03/19 Exa m Time: 611 REPORT STATUS: Signed EXAMINATION: CHEST SINGLE (PORTABLE) INDICATION: post intu bation 20190103 Y COMPARISON: Same day at 4:57 AM FINDINGS: AP view TUBES and LINES: Status post intubation. The tip of endotracheal tube is approximately 4 cm above sandra. LUNGS: Lungs are w ell inflated. Central vascular congestion. PLEURA: No pleural effus ion or pneumothorax. HEART AND MEDIASTINUM: The cardiomediastinal silhouet te is unremarkable. BONES AND SOFT TISSUES: No acute osseous lesion. Soft tissues are unremarkable. UPPER ABDOMEN: No free air under the diaph ragm. IMPRESSION: Status post intubation. Central vascular congest ion. Signed by: Dr. Zhao Mitchell MD on 01/03/2019 6:51 AM Dictate d By: ZHAO MITCHELL MD 0 651 Transcribed By: HARRIS on 01/03/19 0651 COPY TO: ROBERT DASH MD CHEST SINGLE (PORTABLE)2019-01-03 05:04:[address], [place] [address] Patient Name: CHARLOTTE MARTINEZ MR #: [id number] : 1940 Age/Sex: 78/M Req #: [id number] Adm Physician: Ordered by: SHIELA DASH MD Report #: [id number] Location: ER Room/Bed: Procedure: [id number] 5 DX/CHEST SINGLE (PORTABLE) Exam Date: Exam Time: REPORT STATUS: Signed EXAMINATI ON: CHEST SINGLE (PORTABLE) INDICATION: sob Y COMPARI SON: Chest CT dated 01/02/2019 FINDINGS: AP view TUBES and JV ES: None. LUNGS: Lungs are well inflated. Pulmonary vascular congestion and mild interstitial edema. PLEURA: No significant pleural eff usion or pneumothorax. HEART AND MEDIASTINUM: The cardiac silhouette is mi ldly enlarged. BONES AND SOFT TISSUES: No acute osseous lesion. Mildl y elevated right hemidiaphragm. UPPER ABDOMEN: No free air under the diap hragm. IMPRESSION: Mildly enlarged cardiac silhouette, central vascu lar congestion, and mild interstitial edema. Signed by: Dr. Zhao virgen MD on 01/03/2019 5:18 AM Dictated By: ZHAO MITCHELL MD 7 Transcribed By: HARRIS on 517 COPY TO: SHIELA DASH MD CT CHEST O1350-44-59 12:28:00 [facility] [address] [place], [place] [address] Patient Name: CHARLOTTE MARTINEZ MR #: [id number] : 1940 Age/Sex: 78/M Req #: [id number] Adm Physician: Ordered by: JORDYN IRENE MD Report #: [id number] Location: CT Room/Bed: Procedure: [id number] CT/CT C HEST W Exam Date: 01/02/19 Exam Time: 1200 REPORT STATUS: Signed ADDENDUM #1 ADDENDUM: There is bilateral gynecomastia. Signed by: Dr. Sada Griffin MD on 01/02/2019 2:46 PM ORIGINAL REPORT EXAM: CT Chest and Abdomen with contrast INDICATION: Chronic lymphocytic leukemia, anemia. COMPARISON: Report from CT abdomen/pelvis dated 10/31/2016 , the images were not available for review at the time of this dictation. TECHNIQUE: Chest and abdomen was scanned utilizing a multidetector helical sc marla from the lung apex to the iliac crests after administration of IV contra st. Coronal and sagittal reformations were obtained. Routine protocol was perf ormed. IV CONTRAST: 100 mL of Isovue 370 RADIATION DOSE: Total DLP: 459.5 mGy*cm Dose modulation, iterative reconstruction, an d/or weight based adjustment of the mA/kV was utilized to reduce the radiation dose to as low as reasonably achievable. COMPLICATIONS: None FINDINGS: LINES/ TUBES: None. LUNGS AND AIRWAYS: The central air ways are patent. Diffuse mild bronchial wall thickening. There is mild biapica l pleural-parenchymal opacity, suggestive of prior granulomatous disease. Mild patchy groundglass opacity in the left lower lobe on series 4, image 81 may be infectious or inflammatory. Minimal dependent atelectasis. Scattered tiny bi lateral pulmonary nodules, for example a 2 mm subpleural nodule left upper lob e on image 19 and 3 mm nodule opacity along the right major fissure on image 7 9. There is a 5 mm groundglass nodular opacity in the right lower lobe on imag e 61. Punctate 2 mm solid nodule in the right lower lobe on image 62. PLE URA: The pleural spaces are clear. HEART AND MEDIASTINUM: Limited evaluatio n of the thyroid gland secondary to streak artifact. Possible 0.9 cm right thy roid nodule. No mediastinal, hilar or axillary lymphadenopathy. Nonspecific m ediastinal lymph nodes, measuring up to 0.7 cm short axis in the right paratra cheal region and 0.6 cm in the prevascular region. Nonspecific small right sup raclavicular lymph nodes measuring up to 0.5 cm. Mild cardiomegaly. Scattered coronary atherosclerosis. HEPATOBILIARY: Left hepatic lobe cyst. No biliary ductal dilation. The gallbladder is unremarkable. SPLEEN: Mild splenome gypsy measuring 14 cm. PANCREAS: No focal masses or ductal dilatation. ADRENALS: No adrenal nodules KIDNEYS/URETERS: Atrophic bilateral kidneys. Nonspecific bilateral perirenal stranding. There is soft tissue fullness rosario roseann dilation of the left renal pelvis, measuring up to 1.8 cm on series 2, klever ge 69. GI TRACT: Scattered colonic diverticulosis. No evidence of wall thic kening or distension. PELVIC ORGANS/BLADDER: Unremarkable. LYMPH NO EILEEN: Mildly prominent retroperitoneal lymph nodes, for example measuring up to 0.8 cm on the left on series 2, image 66. Mildly prominent right common iliac artery lymph node, measuring up to 0.8 cm on image 85. VESSELS: Scattered atherosclerotic calcifications in the abdominal aorta and branch vessels. PERITONEUM / RETROPERITONEUM: No free air or fluid. BONES/SOFT TISSUES: No acute osseous abnormality IMPRESSION: Prominent mediastinal and upper a bdominal subcentimeter lymph nodes. Splenomegaly. Findings may reflect maligna ncy in this patient with leukemia. Small bilateral pulmonary nodules, ayana uring up to 5 mm in the right lower lobe. A follow-up chest CT may be consider ed in 12 months. Possible 0.9 cm right thyroid nodule. Thyroid ultrasound m ay be considered for further evaluation. Soft tissue fullness versus dila tion of the left renal pelvis, measuring up to 1.8 cm. Suggest hematuria delmar col CT for further evaluation. Signed by: Dr. Sada Griffin MD on 01/02/2019 1 2:56 PM Dictated By: SADA GRIFFIN MD 1446 Transcribed By: HARRIS on 01/02/19 1256 COPY TO: JORDYN YAN MD CT ABDOMEN [id number] 12:28:00 [place] [address] Patient Name: CHARLOTTE MARTINEZ MR #: [id number] : 1940 Age/Sex: 78/M Req #: [id number] Adm Physician: Ordered by: JORDYN IRENE MD Report #: [id number] Location: CT Room/Bed: Procedure: [id number] CT/CT A BDOMEN W Exam Date: 01/02/19 Exam Time: 1200 REPORT STATUS: Signed ADDEN DUM #1 ADDENDUM: There is bilateral gynecomastia. Signed b y: Dr. Sada Griffin MD on 01/02/2019 2:46 PM ORIGINAL REPORT EXAM: CT Chest and Abdomen with contrast INDICATION: Chronic lymphocytic leukemia, anemia. COMPARISON: Report from CT abdomen/pelvis dated 11/01/19 17, the images were not available for review at the time of this dictation. TECHNIQUE: Chest and abdomen was scanned utilizing a multidetector helical scanner from the lung apex to the iliac crests after administration of IV cont rast. Coronal and sagittal reformations were obtained. Routine protocol was pe rformed. IV CONTRAST: 100 mL of Isovue 370 RADIATIO N DOSE: Total DLP: 459.5 mGy*cm Dose modulation, iterative reconstruction, and/or weight based adjustment of the mA/kV was utilized to reduce the radiati on dose to as low as reasonably achievable. COMPLICATIONS: No ne FINDINGS: LINES/ TUBES: None. LUNGS AND AIRWAYS: The central a irways are patent. Diffuse mild bronchial wall thickening. There is mild biapi glory pleural-parenchymal opacity, suggestive of prior granulomatous disease. Mi ld patchy groundglass opacity in the left lower lobe on series 4, image 81 may be infectious or inflammatory. Minimal dependent atelectasis. Scattered tiny bilateral pulmonary nodules, for example a 2 mm subpleural nodule left upper l obe on image 19 and 3 mm nodule opacity along the right major fissure on image 79. There is a 5 mm groundglass nodular opacity in the right lower lobe on im age 61. Punctate 2 mm solid nodule in the right lower lobe on image 62. P LEURA: The pleural spaces are clear. HEART AND MEDIASTINUM: Limited evaluat ion of the thyroid gland secondary to streak artifact. Possible 0.9 cm right t hyroid nodule. No mediastinal, hilar or axillary lymphadenopathy. Nonspecific mediastinal lymph nodes, measuring up to 0.7 cm short axis in the right parat jacy region and 0.6 cm in the prevascular region. Nonspecific small right s upraclavicular lymph nodes measuring up to 0.5 cm. Mild cardiomegaly. Scattere d coronary atherosclerosis. HEPATOBILIARY: Left hepatic lobe cyst. No bilia ry ductal dilation. The gallbladder is unremarkable. SPLEEN: Mild spleno megaly measuring 14 cm. PANCREAS: No focal masses or ductal dilatation. ADRENALS: No adrenal nodules KIDNEYS/URETERS: Atrophic bilateral kidne ys. Nonspecific bilateral perirenal stranding. There is soft tissue fullness v ersus dilation of the left renal pelvis, measuring up to 1.8 cm on series 2, i mage 69. GI TRACT: Scattered colonic diverticulosis. No evidence of wall th ickening or distension. PELVIC ORGANS/BLADDER: Unremarkable. LYMPH NODES: Mildly prominent retroperitoneal lymph nodes, for example measuring up to 0.8 cm on the left on series 2, image 66. Mildly prominent right common melita ac artery lymph node, measuring up to 0.8 cm on image 85. VESSELS: Scattere d atherosclerotic calcifications in the abdominal aorta and branch vessels. PERITONEUM / RETROPERITONEUM: No free air or fluid. BONES/SOFT TISSUES: No acute osseous abnormality IMPRESSION: Prominent mediastinal and upper abdominal subcentimeter lymph nodes. Splenomegaly. Findings may reflect malig aramis in this patient with leukemia. Small bilateral pulmonary nodules, me asuring up to 5 mm in the right lower lobe. A follow-up chest CT may be consid ered in 12 months. Possible 0.9 cm right thyroid nodule. Thyroid ultrasound may be considered for further evaluation. Soft tissue fullness versus di lation of the left renal pelvis, measuring up to 1.8 cm. Suggest hematuria pro tocol CT for further evaluation. Signed by: Dr. Sada Griffin MD on 01/02/2019 12:56 PM Dictated By: SADA GRIFFIN MD 1447 Transcribed By: HARRIS on 01/02/19 1253 COPY TO: JORDYN IRENE MD CHEST 2 [id number] 22:56:00 [place] [address] Patient Name: CHARLOTTE MARTINEZ MR #: [id number] : 1940 Age/Sex: 77/M Req #: [id number] Adm Physician: Ordered by: TALIA HOPSON MD Report #: [id number] Location: ER Room/Bed: Procedure: [id number] DX/CHEST 2 VIEWS Exam Date: Exam Time: REPORT STATUS: Signed EXAM: CHEST 2 VIEWS, PA and lateral INDICATION: Hypertension, weakness COMPARISON: PA and lateral view of the chest August 10, 2017 FINDINGS: LINES/TUBES: Interval placement of right internal jugular vein tunneled hemodialysis catheter with the tip at the expected location of the atrial caval junction. LUNGS: No consolidations or edema. PLEURA: No effusions or pneumothorax. HEART AND MEDIASTINUM: Normal size and contour. BONES AND SOFT TISSUES: No acute findings. IMPRESSION: No acute thoracic abnormality. Signed by: Dr. Yang Sesay M.D. on 01/31/2018 10:58 PM Dictated By: YANG SESAY MD 57 Transcr ibed By: HARRIS on 01/31/182257 COPY TO: TALIA HOPSON MD CBC W/PLT COUNT & AUTO [id number] 13:38:00* Test Item Value Reference Range Interpretation Comments WHITE BLOOD CELL COUNT (BEAKER) (test code = 775) 14.5 K/ L 3.5- 10.5 H RED BLOOD CELL COUNT (BEAKER) (test code = 761) 4.79 M/ L 4.63-6 .08 HEMOGLOBIN (BEAKER) (test code = 410) 13.1 GM/DL 13.7-17.5 L HEMATOCRIT (BEAKER) (test code = 411) 42.9 % 40.1-51.0 MEAN CORPUSCULAR VOLUME (BEAKER) (test code = 753) 89.6 fL 79. 0-92.2 MEAN CORPUSCULAR HEMOGLOBIN (BEAKER) (test code = 751) 27.3 pg 25.7-32.2 MEAN CORPUSCULAR HEMOGLOBIN CONC (BEAKER) (test code = 752) 30.5 GM/DL 32.3-36.5 L RED CELL DISTRIBUTION WIDTH (BEAKER) (test code = 412) 22.5 % 11.6-14.4 H PLATELET COUNT (BEAKER) (test code = 756) 134 K/CU MM 150-450 L MEAN PLATELET VOLUME (BEAKER) (test code = 754) 9.7 fL 9.4-12 .4 NUCLEATED RED BLOOD CELLS (BEAKER) (test code = 413) 0 /100 WBC 0 -0 BASIC METABOLIC [id number] 13:02:00* Test Item Value Reference Range Interpretation Comments SODIUM (BEAKER) (test code = 381) 143 meq/L 136-145 POTASSIUM (BEAKER) (test code = 379) 4.8 meq/L 3.5-5.1 Specimen slightly hemolyzed CHLORIDE (BEAKER) (test code = 382) 102 meq/L 98-107 CO2 (BEAKER) (test code = 355) 25 meq/L 22-29 BLOOD UREA NITROGEN (BEAKER) (test code = 354) 28 mg/dL 7-21 H CREATININE (BEAKER) (test code = 358) 7.12 mg/dL 0.57-1.25 H Specimen slightly hemolyzed GLUCOSE RANDOM (BEAKER) (test code = 652) 113 mg/dL 70-105 H CALCIUM (BEAKER) (test code = 697) 9.2 mg/dL 8.4-10.2 EGFR (BEAKER) (test code = 1092) 8 mL/min/1.73 sq m ESTIMATED GFR IS NOT ACCURATE CREATININE CLEARANCE IN PREDICTING GLOMERULAR FILTRATION RATE. ESTIMATED GFR IS NOT APPLICABLE FOR DIALYSIS PATIENTS. PROTHROMBIN TIME/[id number] 12:24:00* Test Item Value Reference Range Interpretation Comments PROTIME (BEAKER) (test code = 759) 15.4 seconds 11.7-14.7 H INR (BEAKER) (test code = 370) 1.2 <=5.9 RECOMMENDED COUMADIN/WARFARIN INR THERAPY RANGESSTANDARD DOSE: 2.0 - 3.0 Inclu eileen: PROPHYLAXIS for venous thrombosis, systemic embolization; TREATMENT for dorothea ous thrombosis and/or pulmonary embolus.HIGH RISK: Target INR is 2.5-3.5 for pat ients with mechanical heart valves.GLUCOSE-STAT [id number] 11:55:00* Test Item Value Reference Range Interpretation Comments GLUCOSE RANDOM (BEAKER) (test code = 652) 114 mg/dL 70-110 H POTASSIUM-STAT [id number] 11:53:00* Test Item Value Reference Range Interpretation Comments POTASSIUM (BEAKER) (test code = 379) 4.3 meq/L 3.6-5.5 HGB/HCT (H&H) - STAT [id number] 11:53:00* Test Item Value Reference Range Interpretation Comments HEMOGLOBIN (BEAKER) (test code = 410) 13.5 g/dL 13.0-16.8 HEMATOCRIT (BEAKER) (test code = 411) 40.0 % 40.0-50.0 CT ABDOMEN/PELVIS [place] [address] Patient Name: CHARLOTTE MARTINEZ MR #: [id number] : 1940 Age/Sex: 76/M Req #: [id number] Adm Physician: STEVEN HAWKINS MD Ordered by: SANDRA AUSTIN, KAREL AUSTIN Report #: [id number] Location: [facility] Room/Bed: [facility]-13 Procedure: [id number] CT/ CT ABDOMEN/PELVIS WO Exam Date: 08/10/17 Exam Time: 1200 REPORT STATUS: Signed PROCEDURE: CT ABDOMEN AND PELVIS WITHOUT CON TRAST TECHNIQUE: The abdomen and pelvis were scanned utilizing a multid etector helical scanner from the diaphragm to the lesser trochanter after the oral administration of Gastroview. No intravenous contrast was administered per referring physician request. Coronal and sagittal multiplanar reformat ions were obtained. COMPARISON: 10/31/16. INDICATIONS: R/O LYMPHOMA FINDINGS: ABSENCE OF INTRAVENOUS CONTRAST DECREASES SENSITIVITY FOR DETECTION OF FOCAL LESIONS AND VASCULAR PATHOLOGY. LOWER THORAX: Juxtap leural reticular opacities compatible with subsegmental atelectasis in the bailey ng bases. No pleural or pericardial effusion. HEPATOBILIARY: Subcentime ter hypoattenuating lesion in hepatic segment 2, too small to further charact erize though likely represent a small cyst. Similar lesion is noted in segmen t 3. Both are unchanged compared to the prior examination. No additional foca l hepatic lesion or biliary ductal dilatation. The gallbladder is unremarkabl e. SPLEEN: No focal splenic lesion. The spleen is at the upper limits of no rmal in size, measuring 13 cm in craniocaudal span, not significantly changed . PANCREAS: No focal masses or ductal dilatation. ADRENALS: No adrenal n odules. KIDNEYS/URETERS: Nonspecific bilateral perinephric fat stranding, u nchanged. No hydronephrosis, calculus, or gross mass lesion. PELVIC ORGANS/JESSICA DDER: The prostate is enlarged, measuring 5.8 cm transversely, with mass effe ct upon the bladder base. PERITONEUM / RETROPERITONEUM: No ascites. No pne umoperitoneum. LYMPH NODES: No pelvic sidewall, retroperitoneal, or mesenteric lymphadenopathy. VESSELS: Limited evaluation without intravenous contrast. Atherosclerotic calcification of the abdominal aorta and major branch ves sels without aneurysmal dilatation. 2 renal arteries supply each kidney. GI TRACT: The large bowel is notable for innumerable sigmoid diverticula wi thout wall thickening or nasal colic inflammation. The appendix is normal. Th ere is no small bowel dilatation to suggest obstruction. BONES AND SOFT TISSUES: Bilateral small fat-containing inguinal hernias. Subcutaneous gas a nd soft tissue stranding in the right lower quadrant subcutaneous region is l ikely a consequence of insulin or other subcutaneous medication administratio n. Mild bilateral gynecomastia. No osseous destructive lesions. Multile reyes degenerative disc changes and degenerative facet arthropathy of the thora columbar spine. Bilateral sacroiliac joint fusion. IMPRESSION: No acute intra-abdominal or pelvic CT abnormalities. No abdominopelvic lymphade nopathy. Borderline nonspecific splenomegaly. The large bowel divert iculosis without evidence of diverticulitis. Atherosclerotic vascular dise ase. Prostatomegaly. Dictated by: Rosie Vail M.D. on 08/10/2017 at 12:43 Electronically approved by: Rosie Vail M.D. on 08/10/2017 at 12:43 Dictated By: ROSIE VAIL MD 1243 Transcribed By: KAILYN on 08/10/17 1243 COPY TO: KAREL FLORES CHEST 2 VIEWS [place] [address] Patient Name: CHARLOTTE MARTINEZ MR #: [id number] : 1940 Age/Sex: 76/M Req #: [id number] Adm Physician: Ordered by: TALIA HOPSON MD Report #: [id number] Location: ER Room/Bed: Procedure: [id number] DX/CHEST 2 VIEWS Exam Date: 04/19 Exam Time: 0415 REPORT STATUS: Signed EXAM: CHEST 2 VIEWS, PA and lateral DATE: 08/10/2017 3:36 AM Time stamp on exam : 0413 hours INDICATION: Rash to the legs COMPARISON: PA and lateral view of the chest November 16, 2011 FINDINGS: LINES/TUBES: None LUNGS: No cons olidations or edema. PLEURA: No effusions or pneumothorax. HEART AND MEDIASTINUM: Normal size and contour. BONES AND SOFT TISSUES: No acute find ings. IMPRESSION: No acute thoracic abnormality. Signed by: Duong Sesay M.D. on 08/10/2017 5:03 AM Dictated By: YANG SESAY MD 2 Transcribed By: HARRIS on 08/10/17 050 COPY TO: TALIA HOPSON MD US RENAL RETROPERITONEAL COMP [place] [address] Patient Name: CHARLOTTE MARTINEZ MR #: [id number] : 1940 Age/Sex: 76/M Req #: [id number] Adm Physician: STEVEN HAWKINS MD Ordered by: KAREL FLORES MD, MD Report #: [id number] Location: [facility] Room/Bed: [place] [address] Procedure: [id number] US/ US RENAL RETROPERITONEAL COMP Exam Date: 08/10/17 Ex am Time: 1045 REPORT STATUS: Signed PROCEDURE: US RETROPERITONEAL ( Ladan DOLAN ). COMPARISON: CT abdomen and pelvis 10/31/2016. INDICATIONS: Renal Failure TECHNIQUE: Francis-scale and color sonographic images of the bilateral kidneys and bladder where obtained in transverse and longitudinal planes. FINDINGS: RIGHT KIDNEY: 11.4 cm in length, cortical thickness 1.4 cm Cysts: None Solid masses: None Stones: None Hydronephrosis: None Ech ogenicity: Normal renal cortical echogenicity. LEFT KIDNEY: 10.4 cm in sai gth, cortical thickness 1.5 cm. Cysts: None Solid masses: None Stones: Non e Hydronephrosis: None Echogenicity: Normal renal cortical echogenicity. Bladder: Unremarkable. Right and left ureteral jets are identified. Pro state: 3.3 x 2.5 x 4.3 cm, estimated volume 18.5 cc CONCLUSION: Unrem arkable sonographic appearance of the kidneys. Dictated by: Rosie Vali M.D. on 08/10/2017 at 11:21 Electronically approved by: Rosie Vail M.D. on 08/10/2017 at 11:21 Dictated By: ROSIE VAIL MD Electronical ly Signed By: ROSIE VAIL MD on 08/10/17 1121 Transcribed By: KAILYN on 1121 COPY TO: KAREL FLORES
[2019-12-13 14:59] LABS: BASOPHILS % 0.2 % (0.0-1.0); EOSINOPHILS % 0.2 % (0.0-6.0); HEMATOCRIT 23.5 % (38.2-49.6); HEMOGLOBIN 7.6 g/dL (14.0-18.0); LYMPHOCYTES # (AUTO) 0.7 (1.0-3.2); LYMPHOCYTES % 5.3 % (18.0-39.1); MEAN CORPUSCULAR HGB CONC 32.3 g/dL (31-35); MEAN CORPUSCULAR VOLUME 95.9 fL (81-99); MONOCYTES # (AUTO) 0.4 (0.2-0.8); MONOCYTES % 3.1 % (4.4-11.3); NEUTROPHILS # (AUTO) 11.5 (2.1-6.9); NEUTROPHILS % 89.9 % (38.7-80.0); PLATELET COUNT 155 x10e3/uL (140-360); RED BLOOD COUNT 2.45 x10e6/uL (4.3-5.7); RED CELL DISTRIBUTION WIDTH 15.7 % (11.7-14.4)
[2019-12-13 15:07] LABS: INR 1.1; PROTHROMBIN TIME 14.9 seconds (11.9-14.5)
[2019-12-13 15:08] LABS: PARTIAL THROMBOPLASTIN TIME 25.8 seconds (23.8-35.5)
[2019-12-13 15:19] LABS: ALBUMIN 1.6 g/dL (3.5-5.0); ALBUMIN/GLOBULIN RATIO 0.3 (0.8-2.0); ANION GAP 21.2 mmol/L (8-16); CALCIUM 8.1 mg/dL (8.4-10.2); CREATININE, SERUM 8.31 mg/dL (0.72-1.25); POTASSIUM 5.2 mmol/L (3.5-5.1)
--- NOTE | 2019-12-13 15:20 | Diagnostic Imaging Report ---
EXAMINATION: SHOULDER LEFT COMPLETE INDICATION: Trauma COMPARISON: None FINDINGS: No acute fracture or dislocation. Alignment is anatomic. Mild degenerative changes of the glenohumeral and acromioclavicular joints. The visualized portions of the left lung are clear. Soft tissues appear unremarkable. IMPRESSION: No acute osseous injury of the left shoulder. Signed by: Alice Kee MD on 12/13/2019 3:08 PM
--- NOTE | 2019-12-13 15:20 | Diagnostic Imaging Report ---
EXAMINATION: KNEE RIGHT THREE VIEWS INDICATION: Knee swelling COMPARISON: None FINDINGS: No acute fracture or dislocation. Alignment is anatomic. Small suprapatellar joint effusion. Moderate patellofemoral compartment predominant tricompartmental degenerative changes. Atherosclerotic arterial calcifications. IMPRESSION: No acute osseous injury. Small suprapatellar joint effusion. Moderate degenerative changes. Signed by: Alice Kee MD on 12/13/2019 3:09 PM
[2019-12-13] MEDS ORDERED: SODIUM CHLORIDE 0.9% 250ML 250 ML IV ONE (15:30)
[2019-12-13] MEDS ORDERED: INSULIN REGULAR, HUMAN 100 UNIT/1 ML 3ML VIAL IV ONE (15:30)
--- NOTE | 2019-12-13 15:46 | Emergency Department Note ---
History of Present Illnes History of Present Illness Chief Complaint: General Medicine Complaints History of Present Illness This is a 79 year old male . 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, Family Member Arrival Mode: Car Onset (how long ago): week(s) (one) Radiation: extremity Severity: moderate Onset quality: gradual Duration (how long): week(s) Timing of current episode: constant Progression: worsening Chronicity: recurrent Context: recent immobilization Relieving factors: none Exacerbating factors: movement Associated symptoms: other (left shoulder pain s/p fall 3 days ago) Treatments prior to arrival: none Past Medical/Family History Physician Review I have reviewed the patient's past medical and family history. Any updates have been documented here. Past Medical History Recent Fever: No Clinical Suspicion of Infectio: No New/Unexplained Change in Ment: No Past Medical History: Hypertension, Diabetes, Cancer, ESRD, Hemodyalisis, DVT/PE, Chronic Kidney Disease Other Medical History: Pulmonary embolism Ulcerative colitis Arthitis ACQUIRED ANGIOEDEMA DX 11/2018 DIALYSIS M/W/F [facility]UKEMIA Past Surgical History: Cataract Removal Other Surgery: CATARACT SURGERY FISTULA L ARM Social History Smoking Cessation: Never Smoker Alcohol Use: None Any Illegal Drug Use: No TB Exposure/Symptoms: No Physically hurt or threatened: No Family History Family history of heart diseas: Yes Other Last Tetanus: UTD Any Pre-Existing Lines (PICC,: No Is patient up to date on immun: No Review of Systems ROS Narrative Patient is a 79 year old that presents with right knee pain and left shoulder pain. Patient states that he was seen by Dr Zamudio on December 05 and had knee drained. Pain and swelling over past 3 days, leg is swollen and tender, patient c/p pain behind knee as well. 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 Patient denies LOC, dizziness or CP Review of Systems Constitutional: no symptoms EENTM: no symptoms Cardiovascular: no symptoms Respiratory: no symptoms Gastrointestinal: no symptoms Genitourinary: no symptoms Musculoskeletal: joint pain (right knee and left shoulder pain), joint swelling Integumentary: no symptoms Neurological: no symptoms Psychological: no symptoms Endocrine: no symptoms Hematological/Lymphatic: no symptoms Review of other systems All other systems reviewed and negative. Physical Exam Related Data Allergies: Coded Allergies: No Known Allergies (Unverified , 10/31/16) Triage Vital Signs Vital Signs Date Time Temp Pulse Resp B/P (MAP) Pulse Ox O2 Delivery O2 Flow Rate FiO2 12/13/19 13:36 97.2 88 16 148/69 100 Physical Exam CONSTITUTIONAL Constitutional: well-developed, well-nourished HENT HENT: normocephalic, atraumatic, oropharynx clear/moist, nose normal HENT - Ear: left ext ear normal, right ext ear normal EYES Eyes: PERRL, conjunctivae normal NECK Neck: ROM normal PULMONARY Pulmonary: effort normal, breath sounds normal CARDIOVASCULAR Cardiovascular: regular rhythm, heart sounds normal, capillary refill normal, normal rate GASTROINTESTINAL Abdominal: soft, nontender, bowel sounds normal GENITOURINARY Genitourinary: exam deferred SKIN Skin: warm, dry MUSCULOSKELETAL Musculoskeletal: tenderness, swelling (over left lower leg) NEUROLOGICAL Neurological: alert, oriented x 3, no gross motor or sensory deficits PSYCHOLOGICAL Psychiatric/behavioral: mood/affect normal, judgement normal Results Laboratory Laboratory Laboratory Tests Test 12/13/19 14:33 White Blood Count 12.73 x10e3/uL (4.8-10.8) Red Blood Count 2.45 x10e6/uL (4.3-5.7) Hemoglobin 7.6 g/dL (14.0-18.0) Hematocrit 23.5 % (38.2-49.6) Mean Corpuscular Volume 95.9 fL (81-99) Mean Corpuscular Hemoglobin 31.0 pg (28-32) Mean Corpuscular Hemoglobin Concent 32.3 g/dL (31-35) Red Cell Distribution Width 15.7 % (11.7-14.4) Platelet Count 155 x10e3/uL (140-360) Neutrophils (%) (Auto) 89.9 % (38.7-80.0) Lymphocytes (%) (Auto) 5.3 % (18.0-39.1) Monocytes (%) (Auto) 3.1 % (4.4-11.3) Eosinophils (%) (Auto) 0.2 % (0.0-6.0) Basophils (%) (Auto) 0.2 % (0.0-1.0) Neutrophils # (Auto) 11.5 (2.1-6.9) Lymphocytes # (Auto) 0.7 (1.0-3.2) Monocytes # (Auto) 0.4 (0.2-0.8) Eosinophils # (Auto) 0.0 (0.0-0.4) Basophils # (Auto) 0.0 (0.0-0.1) Absolute Immature Granulocyte (auto 0.16 x10e3/uL (0-0.1) Prothrombin Time 14.9 seconds (11.9-14.5) Prothromb Time International Ratio 1.10 Activated Partial Thromboplast Time 25.8 seconds (23.8-35.5) Sodium Level 130 mmol/L (136-145) Potassium Level 5.2 mmol/L (3.5-5.1) Chloride Level 88 mmol/L (98-107) Carbon Dioxide Level 26 mmol/L (22-29) Anion Gap 21.2 mmol/L (8-16) Blood Urea Nitrogen 95 mg/dL (7-26) Creatinine 8.31 mg/dL (0.72-1.25) Estimat Glomerular Filtration Rate 6 ML/MIN (60-) BUN/Creatinine Ratio 11 (6-25) Glucose Level 522 mg/dL (74-118) Calcium Level 8.1 mg/dL (8.4-10.2) Total Bilirubin 0.3 mg/dL (0.2-1.2) Aspartate Amino Transf (AST/SGOT) 7 IU/L (5-34) Alanine Aminotransferase (ALT/SGPT) 17 IU/L (0-55) Alkaline Phosphatase 97 IU/L (40-150) Total Protein 6.3 g/dL (6.5-8.1) Albumin 1.6 g/dL (3.5-5.0) Globulin 4.7 g/dL (2.3-3.5) Albumin/Globulin Ratio 0.3 (0.8-2.0) Lab results reviewed: Yes Imaging Imaging results reviewed: Yes Critical Care Time Subsequent provider I assumed direction of critical care for this patient from another provider of my specialty. Assessment & Plan Assessment & Plan Problems: (1) Hyperglycemia (2) Shoulder pain, left (3) Knee effusion, right (4) ESRD on dialysis Assessment & Plan 1320- shoulder and knee xray to r/o fracture or effusion. Blood work to r/o and abnormalities and VD US to R/O DVT. Reassessment Reassessment time: 14:50 Reassessment 1450- US negative 1530- All results back and discussed with Dr Birmingham- insulin and fluids running 1620- blood glucose is 473 , discussed with Dr Birmingham . OK to dc home- Patient has dialysis scheduled and will go directly to his treatment from here. Discussed all results and DC plan with patient and family. All questions answered Depart Disposition: HOME, SELF-CARE Last Vital Signs Date Time Temp Pulse Resp B/P (MAP) Pulse Ox O2 Delivery O2 Flow Rate FiO2 12/13/19 13:36 97.2 88 16 148/69 100 Home Meds Reported Medications Icatibant Acetate (FIRAZYR) 30 Mg/3 Ml Disp.syrin, 30 MG SC PRN 05/20/19 Folic Acid/Vitamin B Comp W-C (DIALYVITE 800 TABLET) 0.8 Mg Tablet, 1 TAB PO DAILY 05/20/19 Calcium Acetate (CALCIUM ACETATE) 667 Mg Capsule, 2 TAB PO TID 05/20/19 Ibrutinib (Imbruvica) 140 Mg Capsule, 140 MG PO DAILY 05/20/19 Allopurinol (ALLOPURINOL) 100 Mg Tablet, 100 MG PO DAILY, #30 TAB 05/20/19 Medications in the ED T3 #15 EULALIA DEAN NP December 13, 2019 13:49
[2019-12-13 16:12] VITALS: BP 146/83
[2019-12-13 18:53] LABS: ANISOCYTOSIS SLIGHT; BAND NEUTROPHILS % (MANUAL) 2 %; HYPOCHROMASIA SLIGHT; LYMPHOCYTES % (MANUAL) 7 % (19-48); MONOCYTES % (MANUAL) 1 % (3.4-9.0); NEUTROPHILS % (MANUAL) 90 % (40-74)
[2019-12-13 18:54] LABS: PLATELET ESTIMATE SLIGHTLY DECREASED; PLATELET MORPHOLOGY COMMENT NORMAL; POIKILOCYTOSIS SLIGHT; RBC MORPHOLOGY COMMENT NORMAL
[2019-12-14] MEDS ORDERED: PREDNISONE PO (14:34)
[2019-12-14] MEDS ORDERED: PREDNISONE5 MG PO (19:25)
[2019-12-14] MEDS ORDERED: TYLENOL # 31 EA PO (19:27)
[2019-12-14] MEDS ORDERED: NORVASC2.5 MG PO (19:27)
== END 2019-12-13 16:33 | disposition home or self-care (01) ==
LOC: ER 13:07
DX: M25.512 Pain in left shoulder (principal); M25.461 Effusion, right knee; E11.65 Type 2 diabetes mellitus with hyperglycemia; I12.0 Hypertensive chronic kidney disease with stage 5 chronic kidney disease or end stage renal disease; E11.22 Type 2 diabetes mellitus with diabetic chronic kidney disease; N18.6 End stage renal disease; Z99.2 Dependence on renal dialysis
CPT/HCPCS: 36415; 73030; 73562; 80053; 85025; 85610; 85730; 93971; 99284; J7050

== ENCOUNTER 2019-12-14 13:21 | Inpatient (IN) | payer MEDICARE, OTHER ==
[~2019-12-14] VITALS: Ht 167.6 cm; Wt 69.2 kg
--- OUTSIDE RECORDS SUMMARY | 2019-12-14 13:23 | XMS REPORT | Clinical Summary ---
Author Author [facility] Address Unknown Phone Unavailable Care Team Providers Care Hose Turner Name Role Phone Kei Cunha PCP Allergies [...] Not on file Results Not on fileafter 12/13/2018 Insurance Payer Benefit Subscriber ID Type Phone Address Plan / Group [employer] C[employer] xxxxxxxxxxx [facility] [employer] Contracted ALL [id number] [facility] [id number] amily (Home) [facility] [phone] Advance Directives For more information, please contact: [facility] [address] [place] [address] Date Inactivated Comments Code Status Date Activated 12/31/2017 9:35 PM Full Code 12/31/2017 11:29 AM This code status was determined by: Patient
--- OUTSIDE RECORDS SUMMARY | 2019-12-14 13:23 | XMS REPORT ---
Author Author [facility] t Organization [facility] Address [address] [facility] [address] [place] [address] Phone Unavailable Care Team Providers Care Guest Services Name Role Phone MD STEVEN HAWKINS MD PCP Shahzad HOPSON Attphys Unavailable Alejandra PETERSON Attphys Unavailable STEVEN HAWKINS Attphys Unavailable MARIA VICTORIA, MOHAMED Attphys Unavailable LETSOU, NELL ROULA Attphys Unavailable STEVEN HAWKINS Admphys Unavailable LETSOU, NELL ROULA Admphys Unavailable Payers Payer Name Policy Type Policy Number Effective Date Expiration Date Chandana walker [facility] [id number] 2018 00:00:00 [facility] [id number] 2018 00:00:00 [facility] [id number] 2017 00:00:00 [facility] Advance Directives Directive Decision Effective Date Termination Date Comments Sour ce Yes N/A [facility] Problems Condition Name Condition Details Condition Category Status Onset Date Resolution Date Last Treatment Date Treating Clinician Comments Source Gastrointestinal hemorrhage GI bleed Problem Active 2014-09-23 00:00:00 [facility] Acute renal failure superimposed on chronic kidney dis ease Acute on chronic renal failure Problem Active [facility] Pruritus Pruritus Problem Active [facility] Uremia Uremia Problem Active [facility] Angioedema Angio-edema Problem Active [facility] End stage renal failure on dialysis ESRD on dialysis Problem Active [facility] Conjunctivitis Conjunctivitis Problem Active [facility] Cellulitis of right orbital region Orbital cellulitis on right Proble m Active [facility] Effusion of right knee Problem [facility] Left shoulder pain Problem [facility] Hyperglycemia Problem [facility] Allergies, Adverse Reactions, Alerts This patient has no known allergies or adverse reactions. Social History Social Habit Start Date Stop Date Quantity Comments Source Sex Assigned At 1940 00:00:00 1940 00:00:00 Male [facility] Medications Ordered Medication Name Filled Medication Name Start Date Stop Da te Current Medication? Ordering Clinician Indication Dosage Frequency Signature (SIG) Comments Components Source Allopurinol Allopurinol Yes 100 [facility] Calcium Acetate Calcium Acetate Yes 2 [facility] Folic Acid/Vitamin B Comp W-C (Dialyvite 800 Tablet) 0 .8 Mg TABLET Folic Acid/Vitamin B Comp W-C (Dialyvite 800 Tablet) 0.8 Mg TABLET Yes 1 [facility] Ibrutinib (Imbruvica) 140 Mg CAPSULE Ibrutinib (Imbruvica) 140 Mg C APSULE Yes 140 [facility] Icatibant Acetate (Firazyr) 30 Mg/3 Ml DISP.SYRIN Icat ibant Acetate (Firazyr) 30 Mg/3 Ml DISP.SYRIN Yes 30 C [facility] Prednisone Prednisone 2019-05-20 00:00:00 No 10 [facility] Tamsulosin Hcl (Flomax*) 0.4 Mg CAP Tamsulosin Hcl (Flomax*) 0.4 Mg CAP 2019-05-20 00:00:00 No .4 [facility] Warfarin Sodium (Coumadin) 1 Mg TABLET Warfarin Sodium (Coumadin ) 1 Mg TABLET 2017-08-13 00:00:00 No 1 [facility] Metronidazole (Flagyl) 500 Mg TABLET Metronidazole (Flagyl) 500 Mg TABLET 2014-09-23 00:00:00 No 500 [facility] Vital Signs Vital Name Observation Time Observation Value Comments Source Weight 2019-12-13 13:36:00 143 [lb_av] [facility] BMI (Body Mass Index) 2019-12-13 13:36:00 23.1 kg/m2 [facility] Weight 2019-12-02 19:46:00 143 [lb_av] [facility] BMI (Body Mass Index) 2019-12-02 19:46:00 23.1 kg/m2 [facility] Body Temperature 2019-05-30 15:52:00 95.9 [degF] [facility] Procedures Procedure Date / Time Performed Performing Clinician Sourmirna e STRAPPING OF KNEE 2019-12-02 00:00:00 [facility] PERFORMANCE OF URINARY FILTRATION, <6 HRS/DAY 2019-05-29 00:00:0 0 [facility] Computed tomography of orbits, sella tur cica, and posterior cranial fossa without contrast 2019-05-20 00:00:00 SHIELA DASH [facility] Plan of Care Planned Activity Planned Date Details Comments Source Goal Patient referral [code = 3738749 ] [facility] Goal Patient referral [code = 3224520 ] [facility] Goal Patient referral [code = 1393590 ] [facility] Goal Patient referral [code = 8345572 ] [facility] Goal Patient referral [code = 5500851 ] [facility] Instructions Rheumatoid Arthritis [facility] Instructions Knee Overuse [facility] Instructions Contusion [facility] Instructions Hyperglycemia [facility] Encounters Start Date/Time End Date/Time Encounter Type Ad[facility] Encounter ID Source 2019-12-13 13:07:00 2019-12-13 16:33:00 Departed Emergency Room 1 PARRISH [facility] [id number] [facility] 2019-12-02 19:35:00 2019-12-02 22:29:00 Departed Emergency Room 1 MICHAEL PETERSON [facility] [id number] Ximena [facility] 2019-05-20 21:16:00 2019-05-30 17:15:00 Discharged Inpatient 1 PARRISH [facility] [id number] [facility] 2019-01-03 06:53:00 2019-01-06 17:40:00 Discharged Inpatient 1 SHRUTHISTEVEN [facility] [id number] [facility] 2019-01-02 10:47:00 2019-01-02 10:47:00 Registered Clinic 3 JORDYN COSME [facility] [id number] [facility] 2018-01-31 20:52:00 2018-02-01 00:11:00 Departed Emergency Room 1 PARRISH [facility] [id number] [facility] 2017-08-10 10:08:00 2017-08-13 16:56:00 Discharged Inpatient ER STEVEN HAWKINS [facility] [id number] [facility] Results Test Description Test Time Test Comments Results Result Comments Source KNEE RIGHT THREE VIEWS 2019-12-13 15:08:00 [facility] [address] [place] [address] Patient Name: CHARLOTTE MARTINEZ MR #: [id number] : 1940 Age/Sex: 79/M Req #: [id number] Adm Physician: Ordered by: TALIA HOPSON MD Report #: [id number] Location: ER Room/Bed: Procedure: [id number] DX/KNEE RIGHT THREE VIEWS Exam Date: 12/13/19 Exam Time: 1430 REPORT STATUS: Signed EXAMINATION: KNEE RIGHT THREE VIEWS INDICATION: Knee swelling COMPARISON: None FINDINGS: No acute fracture or dislocation. Alignment is anatomic. Small suprapatellar joint effusion. Moderate patellofemoral compartment predominant tricompartmental degenerative changes. Atherosclerotic arterial calcifications. IMPRESSION: No acute osseous injury. Small suprapatellar joint effusion. Moderate degenerative changes. Signed by: Romana Hawkins MD on 12/13/2019 3:09 PM Dictated By: ROMANA HAWKINS MD 1504 Transcribed By: HARRIS on 12/13/19 1502 COPY TO: TALIA HOPSON MD SHOULDER LEFT COMPLETE 2019-12-13 15:07:00 [place] [address] Patient Name: CHARLOTTE MARTINEZ MR #: [id number] : 1940 Age/Sex: 79/M Req #: [id number] Adm Physician: Ordered by: TALIA HOPSON MD Report #: [id number] Location: ER Room/Bed: Procedure: [id number] DX/SHOULDER LEFT COMPLETE Exam Date: 12/13/19 Exam Time: 1442 REPORT STATUS: Signed EXAMINATION: SHOULDER LEFT COMPLETE INDICATION: Trauma COMPARISON: None FINDINGS: No acute fracture or dislocation. Alignment is anatomic. Mild degenerative changes of the glenohumeral and acromioclavicular joints. The visualized port ions of the left lung are clear. Soft tissues appear unremarkable. IMPRESSION: No acute osseous injury of the left shoulder. Signed by: Romana Hawkins MD on 12/13/2019 3:08 PM Dictated By: ROMANA HAWKINS MD 07 Transcribed By: HARRIS on 12/13/19 1508 COPY TO: TALIA HOPSON MD Blood leukocytes automated count (number/volume) 2019-12-13 14:33:00 Test Item White Blood Count (test code = 6690-2) 12.73 [facility] automated count (number/volume)2019-12-13 14:33:00* Test Item Value Reference Range Interpretation Comments Red Blood Count (test code = 789-8) 2.45 [facility] hemoglobin measurement (moles/volume)2019-12-13 14:33:00* Test Item Value Reference Range Interpretation Comments Hemoglobin (test code = 40914-2) 7.6 [facility] Hospital[facility] blood hematocrit (volume fraction)2019-12-13 14:33:00* Test Item Value Reference Range Interpretation Comments Hematocrit (test code = 4544-3) 23.5 [facility] HospitalAutom[facility] erythrocyte mean corpuscular ykxjao0485-79-34 14:33:00* Test Item Value Reference Range Interpretation Comments Mean Corpuscular Volume (test code = 787-2) 95.9 [facility] HospitalAutom[facility] erythrocyte mean corpuscular hemoglobin (mass per erythrocyte)2019-12-13 14:33:00* Test Item Value Reference Range Interpretation Comments Mean Corpuscular Hemoglobin (test code = 785-6) 31.0 [facility] HospitalAutom[facility] erythrocyte mean corpuscular hemoglobin concentration measurement (mass/volume)2019-12-13 14:33:00* Test Item Value Reference Range Interpretation Comments Mean Corpuscular Hemoglobin Concent (test code = 786-4) 32.3 [facility] HospitalRDW WxhLs-Mjs4251-00-13 14:33:00* Test Item Value Reference Range Interpretation Comments Red Cell Distribution Width (test code = 48407-1) 15.7 [facility] HospitalAutom[facility] blood platelet count (count/volume)2019-12-13 14:33:00* Test Item Value Reference Range Interpretation Comments Platelet Count (test code = 777-3) 155 [facility] HospitalAutomated blood segmented neutrophil count as percentage of total duanggrmxs6707-74-61 14:33:00* Test Item Value Reference Range Interpretation Comments Neutrophils (%) (Auto) (test code = 53745-5) 89.9 [facility] HospitalAutom[facility] blood lymphocyte count as percentage ot total efenylxjnl1851-66-04 14:33:00* Test Item Value Reference Range Interpretation Comments Lymphocytes (%) (Auto) (test code = 736-9) 5.3 [facility] HospitalAutom[facility] blood monocyte count as percentage of total wmnykkwajj2003-67-84 14:33:00* Test Item Value Reference Range Interpretation Comments Monocytes (%) (Auto) (test code = 5905-5) 3.1 [facility] HospitalAutom[facility] blood eosinophil count as percentage of total hkignkyuib2604-72-48 14:33:00* Test Item Value Reference Range Interpretation Comments Eosinophils (%) (Auto) (test code = 713-8) 0.2 [facility] HospitalAutom[facility] blood basophil count as percentage of total yxyksjtoqf8022-04-81 14:33:00* Test Item Value Reference Range Interpretation Comments Basophils (%) (Auto) (test code = 706-2) 0.2 [facility] HospitalFluoroscopic procedure less than one hour gohktlsw8533-79-94 14:33:00* Test Item Value Reference Range Interpretation Comments IM GRANULOCYTES % (test code = IM GRANULOCYTES %) 1.3 [facility] HospitalAutomated blood neutrophil count 2019-12-13 14:33:00* Test Item Value Reference Range Interpretation Comments Neutrophils # (Auto) (test code = 751-8) 11.5 [facility] Hospital[facility] lymphocytes count (number/volume) 2019-12-13 14:33:00* Test Item Value Reference Range Interpretation Comments Lymphocytes # (Auto) (test code = 50739-0) 0.7 [facility] HospitalBlood monocytes automated count (number/volume)2019-12-13 14:33:00* Test Item Value Reference Range Interpretation Comments Monocytes # (Auto) (test code = 742-7) 0.4 [facility] HospitalAutomated blood eosinophil count 2019-12-13 14:33:00* Test Item Value Reference Range Interpretation Comments Eosinophils # (Auto) (test code = 711-2) 0.0 [facility] HospitalAutomated blood basophil count (count/volume)2019-12-13 14:33:00* Test Item Value Reference Range Interpretation Comments Basophils # (Auto) (test code = 704-7) 0.0 [facility] HospitalFluoroscopic procedure less than one hour henmxlwk6352-77-24 14:33:00* Test Item Value Reference Range Interpretation Comments Absolute Immature Granulocyte (auto (mojgan t code = Absolute Immature Granulocyte (auto) 0.16 [facility] HospitalProthrombin time (PT) in platelet poor plasma by coagulation zhild7453-91-73 14:33:00* Test Item Value Reference Range Interpretation Comments Prothrombin Time (test code = 5902-2) 14.9 [facility] HospitalINR in Platelet poor plasma by Coagulation xnvdx5117-79-33 14:33:00* Test Item Value Reference Range Interpretation Comments Prothromb Time International Ratio (test code = 6301-6) 1.10 [facility] HospitalActivated partial thromboplastin time (aPTT) in platelet poor plasma by coagulation olpej1343-10-15 14:33:00* Test Item Value Reference Range Interpretation Comments Activated Partial Thromboplast Time (test code = 44487-7) 25.8 [facility] plasma sodium measurement (moles/volume)2019-12-13 14:33:00* Test Item Value Reference Range Interpretation Comments Sodium Level (test code = 2951-2) 130 [facility] or plasma potassium measurement (moles/volume)2019-12-13 14:33:00* Test Item Value Reference Range Interpretation Comments Potassium Level (test code = 2823-3) 5.2 [facility] plasma chloride measurement (moles/volume)2019-12-13 14:33:00* Test Item Value Reference Range Interpretation Comments Chloride Level (test code = 2075-0) 88 [facility] or plasma carbon dioxide, total measurement (moles/volume)2019-12-13 14:33:00* Test Item Value Reference Range Interpretation Comments Carbon Dioxide Level (test code = 2028-9) 26 [facility] or plasma anion epw6527-50-65 14:33:00* Test Item Value Reference Range Interpretation Comments Anion Gap (test code = 02682-3) 21.2 [facility] or plasma urea nitrogen measurement (mass/volume)2019-12-13 14:33:00* Test Item Value Reference Range Interpretation Comments Blood Urea Nitrogen (test code = 3094-0) 95 [facility] or plasma creatinine measurement (mass/volume)2019-12-13 14:33:00* Test Item Value Reference Range Interpretation Comments Creatinine (test code = 2160-0) 8.31 [facility] or plasma urea nitrogen/creatinine mass pqtkh6230-20-45 14:33:00* Test Item Value Reference Range Interpretation Comments BUN/Creatinine Ratio (test code = 3097-3) 11 [facility] HospitalEstimated glomerular filtration rate (GFR) gdaesffyxlwgp4597-00-05 14:33:00* Test Item Value Reference Range Interpretation Comments Estimat Glomerular Filtration Rate (test code = 529759595) 6 [facility] HospitalGlucose fmeopcrkyaq9821-69-07 14:33:00* Test Item Value Reference Range Interpretation Comments Glucose Level (test code = ZNG6191) 522 [facility] or plasma calcium measurement (mass/volume)2019-12-13 14:33:00* Test Item Value Reference Range Interpretation Comments Calcium Level (test code = 86580-2) 8.1 [facility] or plasma total bilirubin measurement (mass/volume)2019-12-13 14:33:00* Test Item Value Reference Range Interpretation Comments Total Bilirubin (test code = 1975-2) 0.3 [facility] HospitalFluoroscopic procedure less than one hour maxeflmm3594-37-84 14:33:00* Test Item Value Reference Range Interpretation Comments Aspartate Amino Transf (AST/SGOT) (test code = Aspartate Amino Transf (AST/SGOT)) 7 [facility] or plasma alanine aminotransferase measurement (enzymatic activity/volume)2019-12-13 14:33:00* Test Item Value Reference Range Interpretation Comments Alanine Aminotransferase (ALT/SGPT) (test code = 1742-6) 17 [facility] or plasma protein measurement (mass/volume)2019-12-13 14:33:00* Test Item Value Reference Range Interpretation Comments Total Protein (test code = 2885-2) 6.3 [facility] or plasma albumin measurement (mass/volume)2019-12-13 14:33:00* Test Item Value Reference Range Interpretation Comments Albumin (test code = 1751-7) 1.6 [facility] HospitalPlasma globulin measurement (mass/volume) 2019-12-13 14:33:00* Test Item Value Reference Range Interpretation Comments Globulin (test code = 11318-4) 4.7 [facility] or plasma albumin/globulin mass wljxu5092-24-40 14:33:00* Test Item Value Reference Range Interpretation Comments Albumin/Globulin Ratio (test code = 1759-0) 0.3 [facility] or plasma alkaline phosphatase measurement (enzymatic activity/volume)2019-12-13 14:33:00* Test Item Value Reference Range Interpretation Comments Alkaline Phosphatase (test code = 6768-6) 97 [facility] HospitalKNEE RIGHT THREE HCVJI3857-73-81 20:31:00 [facility] [address] [place] [address] Patient Name: CHARLOTTE MARTINEZ MR #: [id number] : 1940 Age/Sex: 79/M Req #: [id number] Adm Physician: Ordered by: DOLLY CRAWFORD WAX SPECIALIST Report #: [id number] Location: ER Room/Bed: Procedure: [id number] DX/KNEE RIGHT THREE VIEWS Exam Date: 12/02/19 Exam Time: 2019 REPORT STATUS: Signed KNEE RIGHT THR EE VIEWS - 3 views HISTORY: Pain. COMPARISON: None available. FINDINGS: Bones: No acute displaced fracture. Osseous alignment is w ithin normal limits. Joints: Moderate tricompartmental degenerative finley es with joint space narrowing and marginal osteophytosis. Soft tissues: Small knee joint effusion. IMPRESSION: Moderate right knee arthrosis. No acute osseous abnormality. Small knee joint effusion. Signed by: Caity Villarreal MD on 12/02/2019 8:35 PM Dictated By: CAITY VILLARREAL MD El ectronically Signed By: CAITY VILLARREAL MD on 12/02/192034 Transcribed By: MAYA PEREZ on 12/02/192034 COPY TO: DOLLY CRAWFORD NP Capillary blood glucose measurement by glucometer (mass/volume)2019-05-30 10:55:00* Test Item Value Reference Range Interpretation Comments Bedside Glucose (test code = 15698-9) 279 [facility] HospitalFluoroscopic procedure less than one hour vzytpqkv1047-89-45 09:10:00* Test Item Value Reference Range Interpretation Comments Differential Total Cells Counted (test code = Differphuong tial Total Cells Counted) 100 [facility]100 leukocytes 2019-05-29 09:10:00* Test Item Value Reference Range Interpretation Comments Neutrophils % (Manual) (test code = 52475-0) 61 [facility] lymphocytes/100 leukocytes 2019-05-29 09:10:00* Test Item Value Reference Range Interpretation Comments Lymphocytes % (Manual) (test code = 737-7) 37 [facility] blood monocytes/100 leukocytes 2019-05-29 09:10:00* Test Item Value Reference Range Interpretation Comments Monocytes % (Manual) (test code = 744-3) 2 [facility] HospitalBlood platelets count by estimate (number/volume)2019-05-29 09:10:00* Test Item Value Reference Range Interpretation Comments Platelet Estimate (test code = 60361-3) ADEQUATE [facility] HospitalPlatelet zvvvdsnqwj9598-08-93 09:10:00* Test Item Value Reference Range Interpretation Comments Platelet Morphology Comment (test code = 82294-8) NORMAL [facility] HospitalRBC bneojxkfbk0473-42-85 09:10:00* Test Item Value Reference Range Interpretation Comments Red Cell Morphology Comment (test code = 6742-1) NORMAL [facility] blood eosinophil count as percentage of total ykoeniizcy3093-04-22 07:34:00* Test Item Value Reference Range Interpretation Comments Eosinophils % (Manual) (test code = 714-6) 1 [facility] lymphocytes variant count (number/volume)2019-05-26 07:34:00* Test Item Value Reference Range Interpretation Comments Reactive Lymphocytes (test code = 94141-4) 15 [facility] hepatitis B virus surface antibody assay by radioimmunoassay (units/volume)2019-05-22 16:11:00* Test Item Value Reference Range Interpretation Comments Hepatitis B Surface Antibody, Quant (test code = 5194-6) >1000.0 [facility] hepatitis B virus e antigen detection by enzyme otlelxlbavx7741-66-77 16:11:00* Test Item Value Reference Range Interpretation Comments Hepatitis Be Antigen (test code = 20879-7) Negative [facility] HospitalCT ORBIT/SELLA/PF ZM6072-45-21 20:26:00 [facility] [address] [place] [address] Patient Name: CHARLOTTE MARTINEZ MR #: [id number] : 1940 Age/Sex: 78/M Req #: [id number] Adm Physician: Ordered by: SHIELA DASH MD Report #: [id number] Location: Room/Bed: Procedure: [id number]/CT ORBIT/SELLA/PF WO [...] soft tissue cellulit is. Signed by: Dr. Maria R Bailey M.D. on 05/20/2019 8:34 PM Dicta nicholas By: MARIA R BAILEY MD 33 COPY TO: SHIELA DASH MD Blood wygsioq6600-18-58 19:40:00* Test Item Value Reference Range Interpretation Comments Blood Culture (test code = 19099693) NO GROWTH AFTER 5 DAYS, FINAL REPORT [facility] SINGLE (PORTABLE)2019-01-04 05:43:00 [place] [address] Patient Name: CHARLOTTE MARTINEZ MR #: [id number] : 1940 Age/Sex: 78/M Req #: [id number] Adm Physician: STEVEN HAWKINS MD Ordered by: SHIELA DASH MD Report #: [id number] Location: ICU Room/Bed: [place] [address] Procedure: [id number] DX/CHEST SINGLE (PORTABLE) Exam Date: 01/04/19 Exa m Time: 414 REPORT STATUS: Signed EXAMINATION: CHEST SINGLE (PORTABLE) INDICATION: INTUBATED PT [id number] Y COMPARISON: 01/03/2019 FINDINGS: AP view TUBES and LINES: Stable endotracheal tube. LUNGS: Low lung v olumes. Central vascular congestion. No definite focal consolidation. PLEURA: No pleural effusion or pneumothorax. HEART AND MEDIASTINUM: The c ardiomediastinal silhouette is enlarged. BONES AND SOFT TISSUES: No ac makah osseous lesion. Soft tissues are unremarkable. UPPER ABDOMEN: No lauro e air under the diaphragm. IMPRESSION: Enlarged cardiomediastinal si lhouette and central vascular congestion, accentuated by low lung volumes. Signed by: Dr. Zhao Mitchell MD on 01/04/2019 5:44 AM Dictated By: YULIYA MITCHELL MD 3 Tra nscribed By: HARRIS on 01/04/19543 COPY TO: SHIELA DASH MD CHEST SINGLE (PORTABLE)2019-01-03 06:49:00 [place] [address] Patient Name: CHARLOTTE MARTINEZ MR #: [id number] : 1940 Age/Sex: 78/M Req #: [id number] Adm Physician: Ordered by: SHIELA DASH MD Report #: [id number] Location: ER Room/Bed: Procedure: [id number] DX/CHEST SINGLE (PORTABLE) Exam Date: 01/03/19 [...] ROBERT DASH MD CHEST SINGLE (PORTABLE)2019-01-03 05:04:00 [place] [address] Patient Name: CHARLOTTE MARTINEZ MR #: [id number] : 1940 Age/Sex: 78/M Req #: [id number] Adm Physician: Ordered by: SHIELA DASH MD Report #: [id number] Location: ER Room/Bed: Procedure: [id number] DX/CHEST [...] COPY TO: SHIELA DASH MD CT CHEST H1300-12-97 12:28:00 [place] [address] Patient Name: CHARLOTTE MARTINEZ MR #: [id number] : 1940 Age/Sex: 78/M Req #: [id number] Adm Physician: Ordered by: JORDYN IRENE MD Report #: [id number] Location: CT Room/Bed: Procedure: [id number] CT/CT C HEST W Exam Date: 01/02/19 [...] The gallbladder is unremarkable. SPLEEN: Mild splenome gyspy measuring 14 cm. PANCREAS: No focal masses [...] COPY TO: JORDYN YAN MD CT ABDOMEN [id number] 12:28:00 [place] [address] Patient Name: CHARLOTTE MARTINEZ MR #: [id number] : 1940 Age/Sex: 78/M Req #: [id number] Adm Physician: Ordered by: JORDYN IRENE MD Report #: [id number] Location: CT Room/Bed: Procedure: [id number] CT/CT A BDOMEN W Exam Date: 01/02/19 Exam Time: 1200 REPORT STATUS: Signed ADDEN DUM #1 ADDENDUM: There is bilateral gynecomastia. Signed b y: Dr. Sada Grfifin MD on 01/02/2019 2:46 PM ORIGINAL REPORT [...] 12:56 PM Dictated By: SADA GRIFFIN MD 1446 Transcribed By: HARRIS on 01/02/19 1256 COPY TO: JORDYN IRENE MD CHEST 2 [id number] 22:56:00 [place] [address] Patient Name: CHARLOTTE MARTINEZ MR #: [id number] : 1940 Age/Sex: 77/M Req #: [id number] Adm Physician: Ordered by: TALIA HOPSON MD Report #: [id number] Location: ER Room/Bed: Procedure: [id number] DX/CHEST 2 VIEWS Exam Date: Exam Time: [...] HOPSON MD CBC W/PLT COUNT & AUTO [id number] 13:38:00* Test Item Value Reference Range Interpretation [...] 0 /100 WBC 0 -0 BASIC METABOLIC [id number] 13:02:00* Test Item Value Reference Range Interpretation [...] IS NOT APPLICABLE FOR DIALYSIS PATIENTS. PROTHROMBIN TIME/[id number] 12:24:00* Test Item Value Reference Range Interpretation Comments PROTIME (BEAKER) (test code = 759) 15.4 seconds 11.7-14.7 H INR (BEAKER) (test code = 370) 1.2 <=5.9 RECOMMENDED COUMADIN/WARFARIN INR THERAPY RANGESSTANDARD DOSE: 2.0 - 3.0 Inclu eileen: PROPHYLAXIS for venous thrombosis, systemic embolization; TREATMENT for dorothea ous thrombosis and/or pulmonary embolus.HIGH RISK: Target INR is 2.5-3.5 for pat ients with mechanical heart valves.GLUCOSE-STAT [id number] 11:55:00* Test Item Value Reference Range Interpretation Comments GLUCOSE RANDOM (BEAKER) (test code = 652) 114 mg/dL 70-110 H POTASSIUM-STAT [id number] 11:53:00* Test Item Value Reference Range Interpretation Comments POTASSIUM (BEAKER) (test code = 379) 4.3 meq/L 3.6-5.5 HGB/HCT (H&H) - STAT [id number] 11:53:00* Test Item Value Reference Range Interpretation Comments HEMOGLOBIN (BEAKER) (test code = 410) 13.5 g/dL 13.0-16.8 HEMATOCRIT (BEAKER) (test code = 411) 40.0 % 40.0-50.0 CT ABDOMEN/PELVIS WO [place] [address] Patient Name: CHARLOTTE MARTINEZ MR #: [id number] : 1940 Age/Sex: 76/M Req #: [id number] Adm Physician: STEVEN HAWKINS MD Ordered by: SANDRA AUSTIN, KAREL AUSTIN Report #: [id number] Location: [facility] Room/Bed: [place] [address] Procedure: [id number] CT/ CT ABDOMEN/PELVIS WO Exam Date: 08/10/17 [...] at 12:43 Dictated By: ROSIE VAIL MD 42 Transcribed By: KAILYN on 08/10/171242 COPY TO: KAREL FLORES CHEST 2 VIEWS [place] [address] Patient Name: CHARLOTTE MARTINEZ MR #: [id number] : 1940 Age/Sex: 76/M Req #: [id number] Adm Physician: Ordered by: TALIA HOPSON MD Report #: [id number] Location: ER Room/Bed: Procedure: [id number] DX/CHEST 2 VIEWS Exam Date: 04/19 Exam Time: 414 REPORT STATUS: Signed EXAM: CHEST 2 VIEWS, [...] SESAY MD 2 Transcribed By: HARRIS on 08/10/17502 COPY TO: TALIA HOPSON MD US RENAL RETROPERITONEAL COMP [place] [address] Patient Name: CHARLOTTE MARTINEZ MR #: [id number] : 1940 Age/Sex: 76/M Req #: [id number] [facility] [place] [facility] Physician: STEVEN HAWKINS MD Ordered by: KAREL FLORES MD, MD Report #: [id number] Location: [facility] Room/Bed: [facility]-13 Procedure: [id number] US/ US RENAL RETROPERITONEAL COMP Exam Date: 08/10/17 Ex am Time: 1045 REPORT STATUS: Signed PROCEDURE: US RETROPERITONEAL ( K KELSI ). COMPARISON: CT abdomen and pelvis 10/31/2016. [...] appearance of the kidneys. Dictated by: Rosie Vail M.D. on 08/10/2017 at 11:21 Electronically approved by: Rosie Vail M.D. on 08/10/2017 at 11:21 Dictated By: ROSIE VAIL MD Electronical ly Signed By: ROSIE VAIL MD on 08/10/17 1121 Transcribed By: KAILYN on 1121 COPY TO: KAREL FLORES
[2019-12-14] MEDS ORDERED: SODIUM CHLORIDE 0.9% 500ML 500 ML ONE (14:02)
[2019-12-14] MEDS ORDERED: PREDNISONE PO (14:34)
[2019-12-14 14:50] LABS: BASOPHILS % 0.2 % (0.0-1.0); HEMATOCRIT 24.5 % (38.2-49.6); HEMOGLOBIN 7.5 g/dL (14.0-18.0); LYMPHOCYTES # (AUTO) 0.6 (1.0-3.2); LYMPHOCYTES % 3.2 % (18.0-39.1); MEAN CORPUSCULAR HEMOGLOBIN 30.2 pg (28-32); MEAN CORPUSCULAR HGB CONC 30.6 g/dL (31-35); MEAN CORPUSCULAR VOLUME 98.8 fL (81-99); MONOCYTES # (AUTO) 0.9 (0.2-0.8); MONOCYTES % 4.2 % (4.4-11.3); NEUTROPHILS # (AUTO) 18.3 (2.1-6.9); NEUTROPHILS % 91.5 % (38.7-80.0); PLATELET COUNT 137 x10e3/uL (140-360); RED BLOOD COUNT 2.48 x10e6/uL (4.3-5.7); RED CELL DISTRIBUTION WIDTH 15.9 % (11.7-14.4)
[2019-12-14] MEDS ORDERED: INSULIN REGULAR, HUMAN 100 UNIT/1 ML 3ML VIAL ONE (14:51)
[2019-12-14 15:11] LABS: ANION GAP 20.1 mmol/L (8-16); CREATININE, SERUM 5.72 mg/dL (0.72-1.25)
[2019-12-14 15:12] LABS: POTASSIUM 5.1 mmol/L (3.5-5.1)
--- NOTE | 2019-12-14 15:17 | Diagnostic Imaging Report ---
EXAMINATION: CHEST SINGLE (PORTABLE) INDICATION: Pre-operative COMPARISON: None FINDINGS: LINES/TUBES:None LUNGS:The lungs are well-inflated. No focal consolidation or pulmonary edema. PLEURA:No pleural effusion or pneumothorax. MEDIASTINUM:The cardiomediastinal silhouette appears normal in size and shape. BONES/SOFT TISSUES:No acute osseous injury. ABDOMEN:No free air under the diaphragm. IMPRESSION: No focal pneumonia or pulmonary edema. Signed by: Alice Kee MD on 12/14/2019 3:13 PM
[2019-12-14] MEDS ORDERED: BACITRACIN 50,000 UNIT VIAL ONE (15:35)
[2019-12-14] MEDS ORDERED: BUPIVACAINE HCL 0.5% INJ 30 ML VIAL INJ ONE (15:35)
[2019-12-14] MEDS ORDERED: DIPHENHYDRAMINE HCL INJ 50 MG/ML VIAL IV PRN (16:15)
[2019-12-14] MEDS ORDERED: ACETAMINOPHEN 650 MG SUPP PR PRN (16:15)
[2019-12-14] MEDS ORDERED: ONDANSETRON HCL INJ 2MG/ML 2ML 2 MG/ML VIAL IV PRN (16:15)
[2019-12-14] MEDS: SODIUM CHLORIDE 0.9% 1000ML 1,000 ML IV SCH (16:15)
[2019-12-14 16:59] LABS: BODY FLUID APPEARANCE TURBID; BODY FLUID COLOR RED; BODY FLUID TYPE SYNOVIAL
--- NOTE | 2019-12-14 17:00 | Operative Report ---
DATE OF PROCEDURE: SURGEON: Nehemias Rosenbaum MD CRUISE AGENT: Abelardo Key, certified PA. PREOPERATIVE DIAGNOSIS: Septic arthritis, right knee. POSTOPERATIVE DIAGNOSIS: Septic arthritis, right knee. PROCEDURE: Right knee arthroscopic irrigation and debridement with synovectomy. INDICATIONS: The patient is a 79-year-old gentleman with end-stage renal disease and diabetes. He presented with the right knee pain and aspiration of his knee showed rhonda purulence. He was admitted to the hospital for emergent arthroscopic irrigation and debridement of the right knee. The risks and benefits were explained to the patient and his daughter, they states they understand and wished to proceed. PROCEDURE IN DETAIL: The patient was brought to the operating room. He was placed under general anesthetic. His right lower extremity was prepped and draped in a sterile manner. A preoperative time-out was performed. No tourniquet was utilized. Arthroscopic portals were established and the knee was insufflated with sterile saline. A small amount of persistent purulent fluid was evacuated from the joint and sent for culture. Systemic antibiotics were then administered. There was a agok-ag-zpzlmnxz amount of synovitis throughout the knee. There was grade 4 arthritic changes primarily involving the medial compartment. A mechanical shaver was introduced into the inferior medial portal. A subtotal synovectomy as wherever possible was performed. The knee was thoroughly irrigated. The knee was put through range of motion. The gutters were inspected and irrigated. All considered, the infection appeared to be in caught fairly early and there was not advanced infectious destruction of the knee joint. There was findings more consistent with longstanding osteoarthritis. The arthroscopic instruments were removed and the portal incisions were closed with nylon stitches. A sterile bandage was applied. Estimated blood loss was less than 10 mL. All needle and sponge counts were correct. Nehemias Rosenbaum MD DR/ANTON /[id number]
[2019-12-14 17:06] LABS: RBC,BODY FLUID 22275 cells/uL; WBC,BODY FLUID 21681 cells/uL
--- OUTSIDE RECORDS SUMMARY | 2019-12-14 17:24 | XMS REPORT | Clinical Summary ---
Author Author [facility] Address Unknown Phone Unavailable Care Team Providers Care Business Administration Program Chair Name Role Phone Kei Cunha PCP Allergies [...] Plan / Group [employer] x[employer]xx [facility] Contracted ALL [id number] [facility] [phone] amily (Home) [place] [address] Advance Directives For more information, please contact: [facility] [address] [place] [address] Date Inactivated Comments Code Status Date Activated 12/31/2017 9:35 PM Full Code 12/31/2017 11:29 AM This code status was determined by: Patient
--- OUTSIDE RECORDS SUMMARY | 2019-12-14 17:24 | XMS REPORT ---
Author Author [facility] t Organization [facility] Address [address] [facility] [address] [place] [address] Phone Unavailable Care Team Providers Care Records Clerk Name Role Phone MD STEVEN HAWKINS MD PCP ROSIE CH Attphys Unavailable Shahzad HOPSON Attphys Unavailable Alejandra PETERSON Attphys Unavailable STEVEN HAWKINS Attphys Unavailable MARIA VICTORIA, MOHAMED Attphys Unavailable LETSOUNELL Attphys Unavailable STEVEN HAWKINS Admphys Unavailable LETSOUNELL Admphys Unavailable Payers Payer Name Policy Type Policy Number Effective Date Expiration Date Chandana walker [facility] [id number] 2018 00:00:00 [facility] [id number] 2018 00:00:00 [facility] [id number] 2017 00:00:00 [facility] Advance [...] Acute on chronic renal failure Problem Active [facility] Pruritus Pruritus Problem Active [facility] Uremia Uremia Problem Active [facility] Angioedema Angio-edema Problem Active [facility] End stage renal failure on dialysis ESRD on dialysis Problem Active [facility] Conjunctivitis Conjunctivitis Problem Active [facility] Cellulitis of right orbital region Orbital cellulitis on right Proble m Active [facility] Effusion of right knee Problem [facility] Left shoulder pain Problem [facility] Hyperglycemia Problem [facility] Allergies, Adverse Reactions, Alerts This patient has [...] Components Source Allopurinol Allopurinol Yes 100 C [facility] Calcium Acetate Calcium Acetate Yes 2 [facility] Folic Acid/Vitamin B Comp W-C (Dialyvite 800 Tablet) 0 .8 Mg TABLET Folic Acid/Vitamin B Comp W-C (Dialyvite 800 Tablet) 0.8 Mg TABLET Yes 1 [facility] ical Center Ibrutinib (Imbruvica) 140 Mg CAPSULE Ibrutinib (Imbruvica) 140 Mg C APSULE Yes 140 [facility] Icatibant Acetate (Firazyr) 30 Mg/3 Ml DISP.SYRIN Icat ibant Acetate (Firazyr) 30 Mg/3 Ml DISP.SYRIN Yes 30 C [facility] Prednisone Prednisone 2019-05-20 00:00:00 No 10 [facility] [...] Comments Source Weight 2019-12-13 13:36:00 143 [lb_av] [facility] BMI (Body Mass Index) 2019-12-13 13:36:00 23.1 kg/m2 [facility] Weight 2019-12-02 19:46:00 143 [lb_av] [facility] BMI (Body Mass Index) 2019-12-02 19:46:00 23.1 kg/m2 [facility] Body Temperature 2019-05-30 15:52:00 95.9 [degF] [facility] Procedures Procedure Date / Time Performed Performing Clinician Stuart e STRAPPING OF KNEE 2019-12-02 00:00:00 [facility] PERFORMANCE OF URINARY FILTRATION, <6 HRS/DAY 2019-05-29 00:00:0 0 [facility] Computed tomography of orbits, sella tur cica, and posterior cranial fossa without contrast 2019-05-20 00:00:00 SHIELA DASH [facility] Plan of Care Planned Activity Planned Date Details Comments Source Goal Patient referral [code = 7532641 ] [facility] Goal Patient referral [code = 3101299 ] [facility] Goal Patient referral [code = 4271000 ] [facility] Goal Patient referral [code = 1633960 ] [facility] Goal Patient referral [code = 2001938 ] [facility] Instructions Rheumatoid Arthritis [facility] Instructions Knee Overuse [facility] Instructions Contusion [facility] Instructions Hyperglycemia [facility] Encounters Start Date/Time End Date/Time Encounter Type Admission Type [facility] Care Department Encounter ID Source 2019-12-13 13:07:00 2019-12-13 16:33:00 Departed Emergency Room 1 [facility] [id number] [facility] 2019-12-02 19:35:00 2019-12-02 22:29:00 Departed Emergency Room 1 MICHAEL PETERSON [facility] [id number] [facility] 2019-05-20 21:16:00 2019-05-30 17:15:00 Discharged Inpatient 1 FIRTH [facility] [id number] [facility] 2019-01-03 06:53:00 2019-01-06 17:40:00 Discharged Inpatient 1 STEVEN HAWKINS [facility] [id number] [facility] 2019-01-02 10:47:00 2019-01-02 10:47:00 Registered Clinic 3 JORDYN COSME [facility] [id number] [facility] 2018-01-31 20:52:00 2018-02-01 00:11:00 Departed Emergency Room 1 FIRTH [facility] [id number] [facility] 2017-08-10 10:08:00 2017-08-13 16:56:00 Discharged Inpatient ER STEVEN HAWKINS [facility] [id number] [facility] Results Test Description Test Time Test Comments Results Result Comments Source CHEST SINGLE (PORTABLE) 2019-12-14 15:13:00 [place] [address] Patient Name: CHARLOTTE MARTINEZ MR #: [id number] : 1940 Age/Sex: 79/M Req #: [id number] Adm Physician: Ordered by: ROSIE CH MD Report #: [id number] Location: OR Room/Bed: Procedure: [id number] DX/CHEST SINGLE (PORTABLE) Exam Date: 12/14/19 Exam Time: 1438 REPORT STATUS: Signed EXAMINATION: CHEST SINGLE (PORTABLE) INDICATION: Pre-operative COMPARISON: None FINDINGS: LINES/TUBES:None LUNGS:The lungs are well-inflated. No focal consolidation or pulmonary edema. PLEURA:No pleural effusion or pneumothor ax. MEDIASTINUM:The cardiomediastinal silhouette appears normal in size and shape. BONES/SOFT TISSUES:No acute osseous injury. ABDOMEN:No free air under the diaphragm. IMPRESSION: No focal pneumonia or pulmonary edema. Signed by: Romana Hawkins MD on 12/14/2019 3:13 PM Dictated By: ROMANA HAWKINS MD 12 Transcribed By: HARRIS on 12/14/191512 COPY TO: ROSIE CH MD KNEE RIGHT THREE VIEWS 2019-12-13 15:08:[address] [place] [place], [place] [address] Patient Name: CHARLOTTE MARTINEZ MR #: [id number] : 1940 Age/Sex: 79/M Req #: [id number] Adm Physician: Ordered by: TALIA HOPSON MD Report #: [id number] Location: ER Room/Bed: Procedure: [id number] DX/KNEE RIGHT THREE VIEWS Exam Date: 12/13/19 [...] 3:09 PM Dictated By: ROMANA HAWKINS MD 1509 Transcribed By: HARRIS on 12/13/19 150 COPY TO: TALIA HOPSON MD SHOULDER LEFT COMPLETE 2019-12-13 15:07:[address] [address] Patient Name: CHARLOTTE MARTINEZ MR #: [id number] : 1940 Age/Sex: 79/M Req #: [id number] Adm Physician: Ordered by: TALIA HOPSON MD Report #: [id number] Location: ER Room/Bed: Procedure: [id number] DX/SHOULDER LEFT COMPLETE Exam Date: 12/13/19 Exam [...] 3:08 PM Dictated By: ROMANA HAWKINS MD 1508 Transcribed By: HARRIS on 12/13/19 1508 COPY TO: TALIA HOPSON MD Blood leukocytes automated count (number/volume) 2019-12-13 14:33:00 Test Item White Blood Count (test code = 6690-2) 12.73 [facility] automated count (number/volume)2019-12-13 14:33:00* Test Item Value Reference Range Interpretation Comments Red Blood Count (test code = 789-8) 2.45 [facility] hemoglobin measurement (moles/volume)2019-12-13 14:33:00* Test Item Value Reference Range Interpretation Comments Hemoglobin (test code = 53839-8) 7.6 [facility] Northwest[facility] blood hematocrit (volume fraction)2019-12-13 14:33:00* Test Item Value Reference Range Interpretation Comments Hematocrit (test code = 4544-3) 23.5 [facility] Northwest[facility] erythrocyte mean corpuscular pdyfez9224-33-20 14:33:00* Test Item Value Reference Range Interpretation Comments Mean Corpuscular Volume (test code = 787-2) 95.9 [facility] Northwest[facility] erythrocyte mean corpuscular hemoglobin (mass per erythrocyte)2019-12-13 14:33:00* Test Item Value Reference Range Interpretation Comments Mean Corpuscular Hemoglobin (test code = 785-6) 31.0 [facility] NorthwestAutomat erythrocyte mean corpuscular hemoglobin concentration measurement (mass/volume)2019-12-13 14:33:00* Test Item Value Reference Range Interpretation Comments Mean Corpuscular Hemoglobin Concent (test code = 786-4) 32.3 [facility] NorthwestRDW DlqXt-Xkf9421-13-13 14:33:00* Test Item Value Reference Range Interpretation Comments Red Cell Distribution Width (test code = 93153-9) 15.7 [facility] NorthwestAutomated blood platelet count (count/volume)2019-12-13 14:33:00* Test Item Value Reference Range Interpretation Comments Platelet Count (test code = 777-3) 155 [facility] blood segmented neutrophil count as percentage of total uguqbscqwx2265-00-51 14:33:00* Test Item Value Reference Range Interpretation Comments Neutrophils (%) (Auto) (test code = 76182-0) 89.9 [facility] blood lymphocyte count as percentage ot total rwlfcfvquw9583-75-05 14:33:00* Test Item Value Reference Range Interpretation Comments Lymphocytes (%) (Auto) (test code = 736-9) 5.3 [facility] blood monocyte count as percentage of total cjyrcnevgj3634-06-09 14:33:00* Test Item Value Reference Range Interpretation Comments Monocytes (%) (Auto) (test code = 5905-5) 3.1 [facility] NorthwestAutom[facility] blood eosinophil count as percentage of total vxoxkxhkul0973-33-46 14:33:00* Test Item Value Reference Range Interpretation Comments Eosinophils (%) (Auto) (test code = 713-8) 0.2 [facility] bas[facility] count as percentage of total kwvrllqpge9305-96-48 14:33:00* Test Item Value Reference Range Interpretation Comments Basophils (%) (Auto) (test code = 706-2) 0.2 [facility] NorthwestFluoroscopic procedure less than one hour thmlswou7222-56-05 14:33:00* Test Item Value Reference Range Interpretation Comments IM GRANULOCYTES % (test code = IM GRANULOCYTES %) 1.3 [facility] NorthwestAutomated blood neutrophil count 2019-12-13 14:33:00* Test Item Value Reference Range Interpretation Comments Neutrophils # (Auto) (test code = 751-8) 11.5 [facility] lymphocytes count (number/volume) 2019-12-13 14:33:00* Test Item Value Reference Range Interpretation Comments Lymphocytes # (Auto) (test code = 05238-6) 0.7 [facility] monocytes automated count (number/volume)2019-12-13 14:33:00* Test Item Value Reference Range Interpretation Comments Monocytes # (Auto) (test code = 742-7) 0.4 [facility] NorthwestAutomated blood eosinophil count 2019-12-13 14:33:00* Test Item Value Reference Range Interpretation Comments Eosinophils # (Auto) (test code = 711-2) 0.0 [facility] NorthwestAutomated blood basophil count (count/volume)2019-12-13 14:33:00* Test Item Value Reference Range Interpretation Comments Basophils # (Auto) (test code = 704-7) 0.0 [facility] NorthwestFluoroscopic procedure less than one hour fnddvzhu1591-98-40 14:33:00* Test Item Value Reference Range Interpretation Comments Absolute Immature Granulocyte (auto (mojgan t code = Absolute Immature Granulocyte (auto) 0.16 [facility] NorthwestProthrombin time (PT) in platelet poor plasma by coagulation jkaot1219-42-76 14:33:00* Test Item Value Reference Range Interpretation Comments Prothrombin Time (test code = 5902-2) 14.9 [facility] NorthwestINR in Platelet poor plasma by Coagulation ybiur0434-34-86 14:33:00* Test Item Value Reference Range Interpretation Comments Prothromb Time International Ratio (test code = 6301-6) 1.10 [facility] NorthwestActivated partial thromboplastin time (aPTT) in platelet poor plasma by coagulation ibqjc3516-06-17 14:33:00* Test Item Value Reference Range Interpretation Comments Activated Partial Thromboplast Time (test code = 42001-2) 25.8 [facility] plasma sodium measurement (moles/volume)2019-12-13 14:33:00* Test Item Value Reference Range Interpretation Comments Sodium Level (test code = 2951-2) 130 [facility] or plasma potassium measurement (moles/volume)2019-12-13 14:33:00* Test Item Value Reference Range Interpretation Comments Potassium Level (test code = 2823-3) 5.2 [facility] or plasma chloride measurement (moles/volume)2019-12-13 14:33:00* Test Item Value Reference Range Interpretation Comments Chloride Level (test code = 2075-0) 88 [facility]herum or plasma carbon dioxide, total measurement (moles/volume)2019-12-13 14:33:00* Test Item Value Reference Range Interpretation Comments Carbon Dioxide Level (test code = 2028-9) 26 [facility] or plasma anion azr4078-78-86 14:33:00* Test Item Value Reference Range Interpretation Comments Anion Gap (test code = 21088-5) 21.2 [facility] or plasma urea nitrogen measurement (mass/volume)2019-12-13 14:33:00* Test Item Value Reference Range Interpretation Comments Blood Urea Nitrogen (test code = 3094-0) 95 [facility] or plasma creatinine measurement (mass/volume)2019-12-13 14:33:00* Test Item Value Reference Range Interpretation Comments Creatinine (test code = 2160-0) 8.31 [facility] or plasma urea nitrogen/creatinine mass rihjd1789-17-36 14:33:00* Test Item Value Reference Range Interpretation Comments BUN/Creatinine Ratio (test code = 3097-3) 11 [facility] NorthwestEstimated glomerular filtration rate (GFR) nyzgyyszhpjji0593-13-18 14:33:00* Test Item Value Reference Range Interpretation Comments Estimat Glomerular Filtration Rate (test code = 994837910) 6 [facility] NorthwestGlucose voopzwleeem7720-79-29 14:33:00* Test Item Value Reference Range Interpretation Comments Glucose Level (test code = MMI0877) 522 [facility] or plasma calcium measurement (mass/volume)2019-12-13 14:33:00* Test Item Value Reference Range Interpretation Comments Calcium Level (test code = 76663-3) 8.1 [facility] or plasma total bilirubin measurement (mass/volume)2019-12-13 14:33:00* Test Item Value Reference Range Interpretation Comments Total Bilirubin (test code = 1975-2) 0.3 [facility] NorthwestFluoroscopic procedure less than one hour rvqtgvep6878-05-42 14:33:00* Test Item Value Reference Range Interpretation Comments Aspartate Amino Transf (AST/SGOT) (test code = Aspartate Amino Transf (AST/SGOT)) 7 [facility] or plasma alanine aminotransferase measurement (enzymatic activity/volume)2019-12-13 14:33:00* Test Item Value Reference Range Interpretation Comments Alanine Aminotransferase (ALT/SGPT) (test code = 1742-6) 17 [facility] or plasma protein measurement (mass/volume)2019-12-13 14:33:00* Test Item Value Reference Range Interpretation Comments Total Protein (test code = 2885-2) 6.3 [facility] or plasma albumin measurement (mass/volume)2019-12-13 14:33:00* Test Item Value Reference Range Interpretation Comments Albumin (test code = 1751-7) 1.6 [facility] NorthwestPlasma globulin measurement (mass/volume) 2019-12-13 14:33:00* Test Item Value Reference Range Interpretation Comments Globulin (test code = 33995-1) 4.7 [facility] or plasma albumin/globulin mass smlng8464-04-76 14:33:00* Test Item Value Reference Range Interpretation Comments Albumin/Globulin Ratio (test code = 1759-0) 0.3 [facility] or plasma alkaline phosphatase measurement (enzymatic activity/volume)2019-12-13 14:33:00* Test Item Value Reference Range Interpretation Comments Alkaline Phosphatase (test code = 6768-6) 97 [facility] NorthwestKNEE RIGHT THREE OFGQV9420-91-09 20:31:00 [facility] [address] [address] Patient Name: CHARLOTTE MARTINEZ MR #: [id number] : 1940 Age/Sex: 79/M Req #: [id number] Adm Physician: Ordered by: DOLLY CRAWFORD SENIOR SOFTWARE TESTER Report #: [id number] Location: ER Room/Bed: Procedure: [id number] DX/KNEE RIGHT THREE VIEWS Exam Date: 12/02/19 [...] PEREZ on 12/02/192034 COPY TO: DOLLY CRAWFORD SENIOR SOFTWARE TESTER Capillary blood glucose measurement by glucometer (mass/volume)2019-05-30 10:55:00* Test Item Value Reference Range Interpretation Comments Bedside Glucose (test code = 47844-9) 279 [facility] NorthwestFluoroscopic procedure less than one hour hhyxtnmo9696-04-25 09:10:00* Test Item Value Reference Range Interpretation Comments Differential Total Cells Counted (test code = Ying matute Total Cells Counted) 100 [facility] blood neutrophils/100 leukocytes 2019-05-29 09:10:00* Test Item Value Reference Range Interpretation Comments Neutrophils % (Manual) (test code = 33945-5) 61 [facility] blood lymphocytes/100 leukocytes 2019-05-29 09:10:00* Test Item Value Reference Range Interpretation Comments Lymphocytes % (Manual) (test code = 737-7) 37 [facility] blood monocytes/100 leukocytes 2019-05-29 09:10:00* Test Item Value Reference Range Interpretation Comments Monocytes % (Manual) (test code = 744-3) 2 [facility] platelets count by estimate (number/volume)2019-05-29 09:10:00* Test Item Value Reference Range Interpretation Comments Platelet Estimate (test code = 18971-4) ADEQUATE [facility] NorthwestPlatelet smdxujxsqe7799-31-09 09:10:00* Test Item Value Reference Range Interpretation Comments Platelet Morphology Comment (test code = 04587-4) NORMAL [facility] NorthwestRB pxbrvgsfye0450-80-79 09:10:00* Test Item Value Reference Range Interpretation Comments Red Cell Morphology Comment (test code = 6742-1) NORMAL [facility] blood eosinophil count as percentage of total rwwxdrynzr2716-03-29 07:34:00* Test Item Value Reference Range Interpretation Comments Eosinophils % (Manual) (test code = 714-6) 1 [facility] lymphocytes variant count (number/volume)2019-05-26 07:34:00* Test Item Value Reference Range Interpretation Comments Reactive Lymphocytes (test code = 49960-3) 15 [facility] hepatitis B virus surface antibody assay by radioimmunoassay (units/volume)2019-05-22 16:11:00* Test Item Value Reference Range Interpretation Comments Hepatitis B Surface Antibody, Quant (test code = 5194-6) >1000.0 [facility] hepatitis B virus e antigen detection by enzyme vgdztvbfqlr9678-26-12 16:11:00* Test Item Value Reference Range Interpretation Comments Hepatitis Be Antigen (test code = 01940-9) Negative [facility] DD0038-96-78 20:26:00 [facility] [address] [address] Patient Name: CHARLOTTE MARTINEZ MR #: [id number] : 1940 Age/Sex: 78/M Req #: [id number] Adm Physician: Ordered by: SHIELA DASH MD Report #: [id number] Location: ER Room/Bed: Procedure: 1019-[address]/CT [...] 33 COPY TO: SHIELA DASH MD Blood rczgoep2610-84-77 19:40:00* Test Item Value Reference Range Interpretation Comments Blood Culture (test code = 92169597) NO GROWTH AFTER 5 DAYS, FINAL REPORT [facility] SINGLE (PORTABLE)2019-01-04 05:43:00 [place] [address] Patient Name: CHARLOTTE MARTINEZ MR #: [id number] : 1940 Age/Sex: 78/M Req #: [id number] Adm Physician: STEVEN HAWKINS MD Ordered by: SHIELA DASH MD Report #: [id number] Location: ICU Room/Bed: ICU [facility] Procedure: 0605-000 1 DX/CHEST SINGLE (PORTABLE) [...] enlarged. BONES AND SOFT TISSUES: No ac arlene osseous lesion. Soft tissues are unremarkable. UPPER ABDOMEN: No lauro e air under the diaphragm. IMPRESSION: Enlarged cardiomediastinal si lhouette and central vascular congestion, accentuated by low lung volumes. Signed by: Dr. Zhao Mitchell MD on 01/04/2019 5:44 AM Dictated By: YULIYA MITCHELL MD 3 Tra nscribed By: HARRIS on 01/04/19543 COPY TO: SHIELA DASH MD CHEST SINGLE (PORTABLE)2019-01-03 06:49:00 [place] [address] Patient Name: CHARLOTTE MARTINEZ MR #: [id number] : 1940 Age/Sex: 78/M Req #: [id number] Adm Physician: Ordered by: SHIELA DASH MD [...] MD 0 651 Transcribed By: HARRIS on 01/03/1951 COPY TO: ROBERT DASH MD CHEST SINGLE (PORTABLE)2019-01-03 05:04:00 [place] [address] Patient Name: CHARLOTTE MARTINEZ MR #: [id number] : 1940 Age/Sex: 78/M Req #: [id number] Adm Physician: Ordered by: SHIELA DASH MD Report #: [id number] Location: ER Room/Bed: Procedure: [id number] 5 DX/CHEST [...] 5:18 AM Dictated By: ZHAO MITCHELL MD 517 Transcribed By: HARRIS on 517 COPY TO: SHIELA DASH MD CT CHEST T5630-24-13 12:28:00 [place] [address] Patient Name: CHARLOTTE MARTINEZ MR #: [id number] : 1940 Age/Sex: 78/M Req #: [id number] Adm Physician: Ordered by: JORDYN IRENE MD Report #: [id number] Location: CT Room/Bed: Procedure: [id number] CT/CT C HEST W Exam Date: 01/02/19 [...] COPY TO: JORDYN YAN MD CT ABDOMEN I5298-85-33 12:28:00 [place] [address] Patient Name: CHARLOTTE MARTINEZ MR #: [id number] : 1940 Age/Sex: 78/M Req #: [id number] Adm Physician: Ordered by: JORDYN IRENE MD Report #: [id number] Location: CT Room/Bed: Procedure: [id number] CT/CT A BDOMEN W Exam Date: 01/02/19 [...] COPY TO: JORDYN IRENE MD CHEST 2 LPYMO1111-28-54 22:56:00 [place] [address] Patient Name: CHARLOTTE MARTINEZ MR #: [id number] : 1940 Age/Sex: 77/M Req #: [id number] Adm Physician: Ordered by: TALIA HOPSON MD Report #: [id number] Location: ER Room/Bed: Procedure: DX/CHEST 2 VIEWS Exam Date: Exam Time: [...] HOPSON MD CBC W/PLT COUNT & AUTO QTQUJZACLJNM2673-83-38 13:38:00* Test Item Value Reference Range Interpretation [...] 0 /100 WBC 0 -0 BASIC METABOLIC CWPZF9763-42-31 13:02:00* Test Item Value Reference Range Interpretation [...] IS NOT APPLICABLE FOR DIALYSIS PATIENTS. PROTHROMBIN TIME/EOS9012-39-42 12:24:00* Test Item Value Reference Range Interpretation Comments PROTIME (BEAKER) (test code = 759) 15.4 seconds 11.7-14.7 H INR (BEAKER) (test code = 370) 1.2 <=5.9 RECOMMENDED COUMADIN/WARFARIN INR THERAPY RANGESSTANDARD DOSE: 2.0 - 3.0 Inclu eileen: PROPHYLAXIS for venous thrombosis, systemic embolization; TREATMENT for dorothea ous thrombosis and/or pulmonary embolus.HIGH RISK: Target INR is 2.5-3.5 for pat ients with mechanical heart valves.GLUCOSE-STAT SRA1526-62-81 11:55:00* Test Item Value Reference Range Interpretation Comments GLUCOSE RANDOM (BEAKER) (test code = 652) 114 mg/dL 70-110 H POTASSIUM-STAT AED9656-78-22 11:53:00* Test Item Value Reference Range Interpretation Comments POTASSIUM (BEAKER) (test code = 379) 4.3 meq/L 3.6-5.5 HGB/HCT (H&H) - STAT RRJ4128-20-18 11:53:00* Test Item Value Reference Range Interpretation Comments HEMOGLOBIN (BEAKER) (test code = 410) 13.5 g/dL 13.0-16.8 HEMATOCRIT (BEAKER) (test code = 411) 40.0 % 40.0-50.0 CT ABDOMEN/PELVIS WO [facility] [address] [address] Patient Name: CHARLOTTE MARTINEZ MR #: [id number] : 1940 Age/Sex: 76/M Req #: [id number] Adm Physician: STEVEN HAWKINS MD Ordered by: SANDRA AUSTIN, KAREL AUSTIN Report #: [id number] Location: [facility] Room/Bed: [place] [address] Procedure: [id number] CT/ CT ABDOMEN/PELVIS WO Exam Date: 08/10/17 [...] COPY TO: KAREL FLORES CHEST 2 VIEWS [place] [address] Patient Name: CHARLOTTE MARTINEZ MR #: [id number] : 1940 Age/Sex: 76/M Req #: [id number] Adm Physician: Ordered by: TALIA HOPSON MD Report #: [id number] Location: ER Room/Bed: Procedure: [id number] DX/CHEST 2 VIEWS Exam Date: 04/19 Exam [...] on 08/10/2017 5:03 AM Dictated By: YANG SSEAY MD [id number] Transcribed By: HARRIS on 08/10/17 050 COPY TO: TALIA HOPSON MD RENAL RETROPERITONEAL COMP [place] [address] Patient Name: CHARLOTTE MARTINEZ MR #: [id number] : 1940 Age/Sex: 76/M Req #: [id number] Adm Physician: STEVEN HAWKINS MD Ordered by: SANDRA AUSTIN, KAREL AUSTIN Report #: [id number] Location: [facility] Room/Bed: [place] [address] Procedure: [id number] US/ US RENAL RETROPERITONEAL COMP Exam Date: [...]
--- NOTE | 2019-12-14 18:00 | NUR ---
RECEIVED TO RM FROM PACU AAOX3 DENIES PAIN AT THIS TIME, L UPPER EXTREMITY FISTULA BRUIT AUSCULTATED, THRILL PALPATED, R HAND 20G NO SS OF INFILTRATION NOTED, UPDATED ON POC VOICED UNDERSTANDING, CALL LIGHT IN REACH WILL CONTINUE TO MONITOR
--- NOTE | 2019-12-14 18:03 | NUR ---
DR SWENSON NOTIFIED OF CONSULT
--- NOTE | 2019-12-14 18:05 | NUR ---
DR HAWKINS NOTIFIED OF ATTENDING STATUS NEW ORDERS PLACED AND CARRIED OUT
[2019-12-14] MEDS ORDERED: ICATIBANT ACETATE 30 MG SQ SCH (18:15)
[2019-12-14] MEDS ORDERED: PROPOFOL IV EMULSION 10 MG/ML 20 ML VIAL ONE (18:23)
[2019-12-14] MEDS ORDERED: ACETAMINOPHEN 1000 MG/100 ML IV ONE (18:23)
[2019-12-14] MEDS ORDERED: LIDOCAINE HCL 2% LOCAL INJ 5 ML SDV VIAL INJ ONE (18:23)
[2019-12-14] MEDS ORDERED: ONDANSETRON HCL INJ 2MG/ML 2ML 2 MG/ML VIAL ONE (18:23)
[2019-12-14] MEDS ORDERED: SEVOFLURANE INHAL SOLN 250 ML PEN BTL ONE (18:23)
[2019-12-14] MEDS ORDERED: DEXTROSE 50% SYRINGE 50 ML IV PRN (18:30)
[2019-12-14 18:31] VITALS: BP 153/68
[2019-12-14 18:36] VITALS: BP 153/68
--- NOTE | 2019-12-14 19:22 | NUR ---
Received report from day nurse. Patient in stable condition, no s/s of distress at this time. Received additional list of home meds from daughter and continued as ordered. Imbruvica (home med) sent to pharmacy for verification. Will continue to monitor patient.
[2019-12-14] MEDS ORDERED: PREDNISONE5 MG PO (19:25)
[2019-12-14] MEDS ORDERED: TYLENOL # 31 EA PO (19:27)
[2019-12-14] MEDS ORDERED: NORVASC2.5 MG PO (19:27)
--- NOTE | 2019-12-14 19:48 | NUR ---
Cristy (home med) verified by pharmacy.
--- NOTE | 2019-12-14 19:58 | NUR ---
Called Dr. Sommer's office and was told that consult was already called in and has been notified. Called [facility] and notified them that patient gets hemodialysis MWF, and to place patient on schedule for tomorrow.
[2019-12-14 20:00] VITALS: BP 154/60
[2019-12-14 20:08] VITALS: BP 154/60
[2019-12-14] MEDS: INSULIN REGULAR, HUMAN 100 UNIT/1 ML 3ML VIAL SQ SCH (20:44)
[2019-12-14] MEDS ORDERED: CALCIUM ACETATE 667 MG GELCAP PO SCH (21:00)
[2019-12-14] MEDS ORDERED: ZOLPIDEM TARTRATE 5 MG TAB PO PRN (21:00)
[2019-12-14] MEDS: IBRUTINIB 140 MG PO SCH (21:17)
[2019-12-14] MEDS: CEFAZOLIN SOD 1 GM/NS 50ML 50 ML IV SCH (21:17)
[2019-12-14 21:39] LABS: BAND NEUTROPHILS % (MANUAL) 1 %; HYPOCHROMASIA MODERATE; LYMPHOCYTES % (MANUAL) 3 % (19-48); MONOCYTES % (MANUAL) 4 % (3.4-9.0); NEUTROPHILS % (MANUAL) 92 % (40-74); PLATELET ESTIMATE SLIGHTLY DECREASED; PLATELET MORPHOLOGY COMMENT NORMAL; POIKILOCYTOSIS SLIGHT; RBC MORPHOLOGY COMMENT NORMAL
[2019-12-14 22:06] LABS: LYMPHOCYTES,BODY FLUID 32 %; MONO/MACROPHG,BODY FLUID 55 %; NEUTROPHILS,BODY FLUID 13 %
[2019-12-15] VITALS (9 sets, daily range): BP systolic 93–143; BP diastolic 56–66
[2019-12-15] MEDS: SODIUM CHLORIDE 0.9% 1000ML 1,000 ML IV SCH (02:15)
[2019-12-15] MEDS: CEFAZOLIN SOD 1 GM/NS 50ML 50 ML IV SCH ×2 (05:45→17:45)
--- NOTE | 2019-12-15 05:53 | NUR ---
Per Dr. Becerra, patient is negative for COVID and can be transferred to [facility] unit.
[2019-12-15] MEDS: INSULIN REGULAR, HUMAN 100 UNIT/1 ML 3ML VIAL SQ SCH ×4 (07:49→22:03)
[2019-12-15] MEDS: FOLIC ACID/CYANOCOB/PYRIDOXINE TAB PO SCH (07:50)
[2019-12-15] MEDS: AMLODIPINE BESYLATE 5 MG TAB PO SCH (07:50)
[2019-12-15] MEDS: PREDNISONE 5 MG TAB PO SCH (07:51)
[2019-12-15] MEDS: ALLOPURINOL 100 MG TAB PO SCH (07:51)
[2019-12-15] MEDS: HYDROCODONE/APAP 5MG-325MG TAB PO PRN ×3 (07:51→22:36)
[2019-12-15] MEDS ORDERED: IBRUTINIB 140 MG PO SCH (09:00)
[2019-12-15] MEDS ORDERED: CALCIUM ACETATE 667 MG GELCAP PO SCH (09:00)
[2019-12-15] MEDS: KETOROLAC TROMETHAMINE 30 MG/ML VIAL IV PRN ×2 (11:00→20:37)
[2019-12-15] MEDS ORDERED: VANCOMYCIN 1GM/NS 250 ML 250 ML IV ONE (11:15)
[2019-12-15] MEDS: CALCIUM ACETATE 667 MG GELCAP PO SCH ×2 (12:01→16:43)
[2019-12-15] MEDS: LIDOCAINE 4% PATCH TP SCH (13:32)
[2019-12-15] MEDS ORDERED: ACETAMINOPHEN 1000 MG/100 ML IV PRN (16:15)
--- NOTE | 2019-12-15 18:45 | Consultation ---
DATE OF CONSULTATION: 12/15/2019 HISTORY OF PRESENT ILLNESS: This 79-year-old gentleman came in with septic right knee, status post I and D. we were consulted for management of kidney failure. He has underlying history of diabetes, end-organ damage, peripheral vascular disease, history of coronary artery disease, congestive heart failure, end-stage renal disease, history of right-sided orbital cellulitis in the past, recovered, history of gout, history of diabetes, hypertension, anemia, chronic kidney disease, peripheral neuropathy, cataracts surgery, history of AV fistula placement. Currently, awake, alert, lying supine, has some right knee discomfort, on a knee brace as well as dressing noted. ALLERGIES: NO APPARENT DRUG ALLERGIES. CURRENT MEDICATIONS: Please see MAR for details. On insulin, Zofran, calcium acetate, amlodipine, allopurinol, on normal saline IV which I am going to stop. Discussed with ID. They are going to start vancomycin. He is also on Ambien as well as amlodipine 2.5 mg daily. Calcium acetate with meals. SOCIAL HISTORY: Does not smoke or drink. FAMILY HISTORY: Significant for diabetes. PHYSICAL EXAMINATION: GENERAL: Awake, alert, lying supine, in no apparent distress. VITAL SIGNS: Blood pressure 143/66, pulse rate 98, afebrile, oxygen saturation 97%. HEAD AND NECK: corneas are clear. Oral mucosa moist. LUNGS: Bibasilar rales. HEART: S1, S2 audible. ABDOMEN: Otherwise soft, nontender. No apparent visceromegaly. EXTREMITIES: Lower extremities as described, no edema. IMPRESSION: 1. Hyperkalemia. 2. End-stage renal disease. 3. Anemia. 4. Chronic kidney disease. 5. Hypertension. PLAN: Hemodialysis. Potassium restriction. Renal diet. Phosphorus binders. We will contact dialysis and find out what his last dose of Mircera was. Please see orders. MD PÉREZ Alves/MODL /[id number]
--- NOTE | 2019-12-15 18:56 | NUR ---
Pt transferred to room 202 at this time post dialysis. Left av fistula has pressure dressing on. Pt is aox3 and able to verbalize needs. 0 s/s of acute distress at time of transfer. Report called to nurse who will be receiving pt. Family notified of pt move.
--- NOTE | 2019-12-15 19:07 | NUR ---
pt arrived to unit resp even and unlabored at this time no distress noted, call light in reach.
--- NOTE | 2019-12-15 19:07 | NUR ---
walking rounds complete, pt alert resp even and unlabored at shift change, report given to oncoming nurse.
--- NOTE | 2019-12-15 19:07 | NUR ---
BEDSIDE SHIFT REPORT RECEIVED FROM DAY RN. PT SPEAKS SOME ROMANSH AND SLOVAK. RESPIRATIONS ARE EVEN AND UNLABORED. O2 AT 2L PER N/C. RT KNEE IN IMMOBILER WRAPPED WITH PERFECTO WRAP. dIALYSIS TODAY - REPORTED TOOK OFF 1.5 l OF FLUID. AV FISTULA IN LEFT UPPER ARM - DRESSING DRY AND INTACT. PT IS ALERT AND ORIENTED X2. COOPERATIVE WITH CARE.20 G SL IN RT HAND.TALKED WITH MYRNA HIS DAUGHTER AND PT TALKED WITH HER. CALL LIGHT WITHIN REACH. BED LOCKED AND IN LOW POSITION.
[2019-12-15] MEDS: IBRUTINIB 140 MG PO SCH (20:51)
[2019-12-16] VITALS (7 sets, daily range): BP systolic 117–156; BP diastolic 56–73
--- NOTE | 2019-12-16 00:01 | History and Physical ---
HISTORY OF PRESENT ILLNESS: Mr. Landa who was admitted with infected knee on the right. The patient with history of end-stage renal disease comes in with right knee pain, fever and chills. The patient was admitted. He was seen by Dr. Rosenbaum, underwent right knee arthroscopic irrigation and debridement with synovectomy. I was asked to see him. He is currently doing much better. His cultures showing staph aureus. LABORATORY DATA: On admission was white count 20.03, hemoglobin 7.5. Sodium 132, potassium 5.1, creatinine of 5.72. REVIEW OF SYSTEMS: HEENT: Negative. PULMONARY: Negative. CARDIAC: Negative. : Negative. At this time he is doing much better. PHYSICAL EXAMINATION: GENERAL: He is currently alert and oriented, does not seem to be in acute distress. VITAL SIGNS: Stable, currently afebrile. HEENT: He is not icteric. NECK: Supple. CHEST: Clear. HEART: S1 and S2. ABDOMEN: Soft. IMPRESSION: Infected knee on the right, status post surgery as mentioned above. PLAN: The plan is to continue as ordered vancomycin the past three weeks. We will adjust for his kidney function, await culture sensitivity. Recheck CBC. Recheck Chem panel. MD ALBERT Grossman/ANTON /[id number]
--- NOTE | 2019-12-16 07:00 | NUR ---
RECEIVED PATIENT AWAKE RESTING IN BED NO S/S OF DISTRESS. BED LOW, WHEELS LOCKED, SIDE RAILS X2. CALL LIGHT IN REACH WILL CONTINUE TO MONITOR PATIENT.
[2019-12-16] MEDS: INSULIN REGULAR, HUMAN 100 UNIT/1 ML 3ML VIAL SQ SCH ×4 (07:30→21:00)
[2019-12-16 07:34] LABS: BASOPHILS % 0.1 % (0.0-1.0); EOSINOPHILS % 0.2 % (0.0-6.0); LYMPHOCYTES # (AUTO) 1.5 (1.0-3.2); LYMPHOCYTES % 10.1 % (18.0-39.1); MEAN CORPUSCULAR HGB CONC 30.8 g/dL (31-35); MEAN CORPUSCULAR VOLUME 97.5 fL (81-99); MONOCYTES # (AUTO) 0.7 (0.2-0.8); NEUTROPHILS # (AUTO) 12.5 (2.1-6.9); NEUTROPHILS % 83.7 % (38.7-80.0); PLATELET COUNT 100 x10e3/uL (140-360); RED CELL DISTRIBUTION WIDTH 16.2 % (11.7-14.4)
[2019-12-16 07:39] LABS: ALBUMIN 1.3 g/dL (3.5-5.0); ALBUMIN/GLOBULIN RATIO 0.3 (0.8-2.0); ANION GAP 17.1 mmol/L (8-16); CALCIUM 8.9 mg/dL (8.4-10.2); CREATININE, SERUM 4.53 mg/dL (0.72-1.25); MAGNESIUM 2.2 MG/DL (1.3-2.1); POTASSIUM 5.1 mmol/L (3.5-5.1)
[2019-12-16 07:49] LABS: HEMATOCRIT 19.5 % (38.2-49.6)
[2019-12-16] MEDS: CALCIUM ACETATE 667 MG GELCAP PO SCH ×3 (08:28→16:47)
[2019-12-16] MEDS: AMLODIPINE BESYLATE 5 MG TAB PO SCH (08:28)
[2019-12-16] MEDS: LIDOCAINE 4% PATCH TP SCH (08:28)
[2019-12-16] MEDS: FOLIC ACID/CYANOCOB/PYRIDOXINE TAB PO SCH (08:28)
[2019-12-16] MEDS: ALLOPURINOL 100 MG TAB PO SCH (08:28)
[2019-12-16] MEDS: PREDNISONE 5 MG TAB PO SCH (08:28)
[2019-12-16] MEDS ORDERED: SODIUM CHLORIDE 0.9% 250ML 250 ML IV NR (08:30)
[2019-12-16 09:42] LABS: BAND NEUTROPHILS % (MANUAL) 1 %; EOSINOPHILS % (MANUAL) 1 % (0-7); LYMPHOCYTES % (MANUAL) 2 % (19-48); MONOCYTES % (MANUAL) 3 % (3.4-9.0); NEUTROPHILS % (MANUAL) 93 % (40-74)
[2019-12-16 09:43] LABS: HYPOCHROMASIA MODERATE; PLATELET ESTIMATE SLIGHTLY DECREASED; PLATELET MORPHOLOGY COMMENT NORMAL
[2019-12-16] MEDS ORDERED: CEFAZOLIN SOD 1 GM/NS 50ML 150 ML IV SCH (10:30)
[2019-12-16] MEDS: KETOROLAC TROMETHAMINE 30 MG/ML VIAL IV PRN (10:31)
[2019-12-16] MEDS: ONDANSETRON HCL 4 MG ORAL DISINTEGRATING TAB PO PRN (12:01)
[2019-12-16] MEDS ORDERED: SODIUM CHLORIDE 0.9% 250ML 250 ML ONE ×2 (12:19→17:24)
--- NOTE | 2019-12-16 12:40 | NUR ---
BLOOD TRANSFUSION BEGAN. PATIENT TOLERATING WELL. VS STABLE. CALL LIGHT IN REACH WILL CONTINUE TO MONITOR PATIENT.
--- NOTE | 2019-12-16 14:18 | NUR ---
Pt hgb too low at 6.0 and being transfused 2 units Addendum: 12/16/19 at 1419 by Gustavo Montalvo PTA Amended: Links added.
--- NOTE | 2019-12-16 16:20 | NUR ---
BLOOD TRANSFUSION COMPLETE. PATIENT TOLERATED WELL. VITAL SIGNS STABLE. CALL LIGHT IN REACH WILL CONTINUE TO MONITOR PATIENT.
--- NOTE | 2019-12-16 18:30 | NUR ---
SECOND UNIT OF PRBC STARTED. PATIENT TOLERATING WELL. VS STABLE CALL LIGHT IN REACH WILL CONTINUE TO MONITOR PATIENT.
--- NOTE | 2019-12-16 19:40 | NUR ---
RECEIVED PATIENT AWAKE RESTING IN BED NO S/S OF DISTRESS NOTED BLOOD TRANSFUSION IN PROGRESS CALL LIGHT WITH IN REACH CONTINUE TO MONITOR
[2019-12-16] MEDS: IBRUTINIB 140 MG PO SCH (21:35)
[2019-12-17] VITALS (7 sets, daily range): BP systolic 98–138; BP diastolic 60–67
[2019-12-17 01:34] LABS: BASOPHILS # (AUTO) 0.1 (0.0-0.1); BASOPHILS % 0.3 % (0.0-1.0); EOSINOPHILS # (AUTO) 0.1 (0.0-0.4); EOSINOPHILS % 0.4 % (0.0-6.0); HEMATOCRIT 25.1 % (38.2-49.6); LYMPHOCYTES # (AUTO) 2.5 (1.0-3.2); LYMPHOCYTES % 14.2 % (18.0-39.1); MEAN CORPUSCULAR HEMOGLOBIN 29.9 pg (28-32); MEAN CORPUSCULAR HGB CONC 31.9 g/dL (31-35); MEAN CORPUSCULAR VOLUME 93.7 fL (81-99); MONOCYTES # (AUTO) 0.9 (0.2-0.8); MONOCYTES % 5.3 % (4.4-11.3); PLATELET COUNT 101 x10e3/uL (140-360); RED BLOOD COUNT 2.68 x10e6/uL (4.3-5.7); RED CELL DISTRIBUTION WIDTH 16.5 % (11.7-14.4)
--- NOTE | 2019-12-17 05:51 | NUR ---
PT RESTED DURING THE NIGHT .NO ACUTE DISTRESS NOTED .CALL LIGHT WITH IN REACH .CONTINUE TO MONITOR
[2019-12-17 06:38] LABS: BASOPHILS % 0.1 % (0.0-1.0); EOSINOPHILS # (AUTO) 0.1 (0.0-0.4); EOSINOPHILS % 0.5 % (0.0-6.0); HEMATOCRIT 26.3 % (38.2-49.6); HEMOGLOBIN 8.2 g/dL (14.0-18.0); LYMPHOCYTES % 14.2 % (18.0-39.1); MEAN CORPUSCULAR HEMOGLOBIN 29.4 pg (28-32); MEAN CORPUSCULAR HGB CONC 31.2 g/dL (31-35); MEAN CORPUSCULAR VOLUME 94.3 fL (81-99); MONOCYTES # (AUTO) 0.6 (0.2-0.8); MONOCYTES % 4.2 % (4.4-11.3); NEUTROPHILS # (AUTO) 11.6 (2.1-6.9); NEUTROPHILS % 80.3 % (38.7-80.0); PLATELET COUNT 99 x10e3/uL (140-360); RED BLOOD COUNT 2.79 x10e6/uL (4.3-5.7); RED CELL DISTRIBUTION WIDTH 16.5 % (11.7-14.4)
--- NOTE | 2019-12-17 06:57 | NUR ---
BEDSIDE REPORT GIVEN TO THE ONCOMING NURSE.
--- NOTE | 2019-12-17 07:00 | NUR ---
RECEIVED PATIENT AWAKE RESTING IN BED NO S/S OF DISTRESS. BED LOW, WHEELS LOCKED, SIDE RAILS X2. CALL LIGHT IN REACH WILL CONTINUE TO MONITOR PATIENT.
[2019-12-17 07:05] LABS: ALBUMIN 1.2 g/dL (3.5-5.0); ALBUMIN/GLOBULIN RATIO 0.3 (0.8-2.0); ALKALINE PHOSPHATASE 105 IU/L (40-150); ANION GAP 22.8 mmol/L (8-16); BLOOD UREA NITROGEN 81 mg/dL (7-26); BUN/CREATININE RATIO 13 (6-25); CALCIUM 8.8 mg/dL (8.4-10.2); CARBON DIOXIDE 22 mmol/L (22-29); CHLORIDE 94 mmol/L (98-107); CREATININE, SERUM 6.15 mg/dL (0.72-1.25); EST GLOMERULAR FILTRATION RATE 9 ML/MIN (60-); GLUCOSE 107 mg/dL (74-118); MAGNESIUM 2.4 MG/DL (1.3-2.1); SODIUM 133 mmol/L (136-145)
[2019-12-17 07:06] LABS: ALANINE AMINOTRANSFERASE < 6 IU/L (0-55)
[2019-12-17 07:10] LABS: POTASSIUM 5.8 mmol/L (3.5-5.1)
[2019-12-17] MEDS: INSULIN REGULAR, HUMAN 100 UNIT/1 ML 3ML VIAL SQ SCH ×4 (07:30→21:00)
--- NOTE | 2019-12-17 07:30 | NUR ---
PAGED DR. FLORES REGARDING POTASSIUM LEVEL.
[2019-12-17 08:29] LABS: BAND NEUTROPHILS % (MANUAL) 2 %; EOSINOPHILS % (MANUAL) 1 % (0-7); LYMPHOCYTES % (MANUAL) 11 % (19-48); MONOCYTES % (MANUAL) 5 % (3.4-9.0); NEUTROPHILS % (MANUAL) 81 % (40-74)
[2019-12-17 08:30] LABS: PLATELET ESTIMATE SLIGHTLY DECREASED; PLATELET MORPHOLOGY COMMENT NORMAL
[2019-12-17] MEDS: ALLOPURINOL 100 MG TAB PO SCH (08:55)
[2019-12-17] MEDS: CALCIUM ACETATE 667 MG GELCAP PO SCH ×3 (08:55→16:36)
[2019-12-17] MEDS: LIDOCAINE 4% PATCH TP SCH (08:55)
[2019-12-17] MEDS: PREDNISONE 5 MG TAB PO SCH (08:55)
[2019-12-17] MEDS: FOLIC ACID/CYANOCOB/PYRIDOXINE TAB PO SCH (08:55)
[2019-12-17] MEDS: AMLODIPINE BESYLATE 5 MG TAB PO SCH (08:55)
[2019-12-17] MEDS: HYDROCODONE/APAP 5MG-325MG TAB PO PRN (11:59)
--- NOTE | 2019-12-17 16:22 | Progress Note ---
DATE: SUBJECTIVE: Mr. Landa is currently lying in bed comfortably. PHYSICAL EXAMINATION: GENERAL: He is currently alert, oriented, does not seem acute distress. VITAL SIGNS: Stable, currently afebrile. HEENT: He is not icteric. NECK: Supple. CHEST: Clear. ABDOMEN: Soft. Bowel sounds present. EXTREMITIES: No edema. SKIN: No rash. IMPRESSION: Status post right knee infection. End-stage renal disease, on hemodialysis. Hypertension. Status post surgery on December 13 for a septic right knee with right knee arthroscopic irrigation and debridement. Cultures showing Staphylococcus aureus, MSSA. We will change antibiotic to cefazolin. PLAN: Three weeks of Ancef or cefazolin 3 g on the patient with dialysis. Followup sedimentation rate 12, C-reactive protein. We will follow. MD ALBERT Grossman/ANTON /[id number]
--- NOTE | 2019-12-17 19:56 | NUR ---
RECEIVED PATIENT AWAKE RESTING IN BED NO S/S OF DISTRESS NOTED KNEE IMMOBILIZER HAS REMOVED .BAND AID IN THE RT KNEE CALL LIGHT WITH IN REACH CONTINUE TO MONITOR
[2019-12-17] MEDS: IBRUTINIB 140 MG PO SCH (21:08)
--- NOTE | 2019-12-17 21:23 | Consultation ---
DATE OF CONSULTATION: 12/15/2019 The patient was seen on December 14, but for some reason, I do not see my consult. The patient is seen and examined, chart reviewed. HISTORY OF PRESENT ILLNESS: This is a 79-year-old gentleman, who has history of end-stage renal disease, on hemodialysis. He was admitted to the hospital for septic knee and the patient is going to see by Dr. Salcedo for I and D arthroscopically. The patient was started on antibiotic. Please refer to orders in the chart. The patient has no complaints at the present time. PAST MEDICAL HISTORY: As above. PAST SURGICAL HISTORY: Right knee arthroscopic irrigation and debridement with synovectomy. HOME MEDICATIONS: Reviewed. ALLERGIES: NKA. SOCIAL HISTORY: There is no smoking, drug abuse, or alcohol abuse. FAMILY HISTORY: Hypertension. PHYSICAL EXAMINATION: GENERAL: Alert and oriented, does not seem to be in acute distress. VITAL SIGNS: Stable, currently afebrile. HEENT: Not icteric. NECK: Supple. CHEST: Clear. HEART: S1 and S2. No S3, S4, or murmurs. ABDOMEN: Soft. Bowel sounds present. No tenderness. EXTREMITIES: No edema. SKIN: No rash. IMPRESSION: 1. Infected right knee, status post debridement. Agree with culture and sensitivity. 2. We will put him on vancomycin and cefepime. 3. End-stage renal disease. 4. We will follow. MD ALBERT Grossman/ANTON /[id number]
[2019-12-18] VITALS (9 sets, daily range): BP systolic 115–146; BP diastolic 56–66
--- NOTE | 2019-12-18 05:31 | NUR ---
LOOSE STOOL X2 .NOTIFIED DR HAWKINS .ORDER TO DO C-DIFF .CONTINUE TO MONITOR
[2019-12-18 05:50] LABS: BASOPHILS % 0.1 % (0.0-1.0); EOSINOPHILS # (AUTO) 0.1 (0.0-0.4); EOSINOPHILS % 0.3 % (0.0-6.0); HEMATOCRIT 26.5 % (38.2-49.6); HEMOGLOBIN 8.3 g/dL (14.0-18.0); LYMPHOCYTES % 12.8 % (18.0-39.1); MEAN CORPUSCULAR HEMOGLOBIN 29.7 pg (28-32); MEAN CORPUSCULAR HGB CONC 31.3 g/dL (31-35); MONOCYTES # (AUTO) 0.7 (0.2-0.8); MONOCYTES % 4.7 % (4.4-11.3); NEUTROPHILS # (AUTO) 12.8 (2.1-6.9); NEUTROPHILS % 81.3 % (38.7-80.0); PLATELET COUNT 109 x10e3/uL (140-360); RED BLOOD COUNT 2.79 x10e6/uL (4.3-5.7); RED CELL DISTRIBUTION WIDTH 16.2 % (11.7-14.4)
[2019-12-18 06:04] LABS: ALBUMIN 1.2 g/dL (3.5-5.0); ALBUMIN/GLOBULIN RATIO 0.3 (0.8-2.0); ALKALINE PHOSPHATASE 111 IU/L (40-150); ANION GAP 24.6 mmol/L (8-16); BLOOD UREA NITROGEN 117 mg/dL (7-26); BUN/CREATININE RATIO 15 (6-25); CALCIUM 8.8 mg/dL (8.4-10.2); CARBON DIOXIDE 21 mmol/L (22-29); CHLORIDE 91 mmol/L (98-107); CREATININE, SERUM 7.72 mg/dL (0.72-1.25); EST GLOMERULAR FILTRATION RATE 7 ML/MIN (60-); GLUCOSE 205 mg/dL (74-118); SODIUM 130 mmol/L (136-145)
[2019-12-18 06:12] LABS: ALANINE AMINOTRANSFERASE < 6 IU/L (0-55); POTASSIUM 6.6 mmol/L (3.5-5.1)
--- NOTE | 2019-12-18 07:00 | NUR ---
BEDSIDE SHIFT REPORT RECEIVED FROM THE MANAGER MACHINE RN. EDUCATED PT ABOUT FALL PRECAUTIONS. PT VERBALIZED UNDERSTANDING. CALL LIGHT WITH IN EASY REACH. INSTRUCTED PT TO USE CALL LIGHT FOR ALL THE NEEDS. BED IS LOW AND LOCKED. SIDE RAILS X2. BED ALARM IS ON. PT DENIES NEEDS AT THIS TIME.
--- NOTE | 2019-12-18 07:15 | NUR ---
BEDSIDE REPORT GIVEN TO THE ONCOMING NURSE
[2019-12-18] MEDS: INSULIN REGULAR, HUMAN 100 UNIT/1 ML 3ML VIAL SQ SCH ×4 (07:30→21:01)
--- NOTE | 2019-12-18 07:30 | NUR ---
PAGED DR. FLORES AND REPORTED K LEVEL 6.6. NO NEW ORDERS RECEIVED. PAGED [facility] TO CONFIRM DIALYSIS APPOINTMENT FOR TODAY. WILL CALL BACK WITH TIMING PER MESHA HERNANDEZ.
--- NOTE | 2019-12-18 07:35 | NUR ---
PAGED DR. HAWKINS REGARDING TELE MONITORING. WAITING FOR THE RESPONSE FROM THE
--- NOTE | 2019-12-18 07:41 | NUR ---
JOHANA HERNANDEZ PER DR. FLORES FOR STAT DIALYSIS.
[2019-12-18] MEDS: AMLODIPINE BESYLATE 5 MG TAB PO SCH ×2 (08:00→09:00)
[2019-12-18] MEDS: CALCIUM ACETATE 667 MG GELCAP PO SCH ×3 (08:00→17:00)
[2019-12-18] MEDS ORDERED: DEXTROSE 50% SYRINGE 50 ML IV ONE ×2 (08:10)
[2019-12-18] MEDS ORDERED: INSULIN REGULAR, HUMAN 100 UNIT/1 ML 3ML VIAL IV ONE (08:15)
[2019-12-18] MEDS ORDERED: CALCIUM GLUCONATE 10% INJ 4.65 MEQ in SODIUM CHLORIDE 0.9% 50ML 50 ML IV ONE (08:30)
[2019-12-18] MEDS ORDERED: SODIUM CHLORIDE 0.9% 250ML 250 ML ONE (08:44)
--- NOTE | 2019-12-18 08:45 | NUR ---
CREDIT OFFICE MANAGER AT BEDSIDE.
[2019-12-18] MEDS ORDERED: SODIUM CHLORIDE 0.9% 1000ML 2,000 ML ONE (08:52)
[2019-12-18] MEDS: ALLOPURINOL 100 MG TAB PO SCH (08:58)
[2019-12-18] MEDS: LIDOCAINE 4% PATCH TP SCH (08:58)
[2019-12-18] MEDS: PREDNISONE 5 MG TAB PO SCH (08:58)
[2019-12-18] MEDS: FOLIC ACID/CYANOCOB/PYRIDOXINE TAB PO SCH (08:58)
--- NOTE | 2019-12-18 09:30 | NUR ---
BLOOD SUGAR RECHECKED. [address] FLORES AND INFORMED THE SAME.
--- NOTE | 2019-12-18 11:04 | Progress Note ---
DATE: SUBJECTIVE: The patient is seen and evaluated, available labs and notes reviewed. REVIEW OF SYSTEMS: The patient is complaining of diarrhea. Otherwise, comfortable in bed. Dialysis staff in the room. Discussed with a nurse, also confirming the patient's diarrhea. OBJECTIVE: VITAL SIGNS: Temperature 98.7, pulse 82, respirations 16, and blood pressure 146/61. MEDICATIONS: Medication list reviewed. As far as Infectious Disease point of view, the patient is on cefazolin. LABORATORY STUDIES: White count of 15.71, hemoglobin 8.3, and platelet 109, improved from 99. Sodium 130, potassium 6.6, and creatinine is 7.72. The patient is on dialysis. MICROBIOLOGY: Wound culture is MSSA. RADIOLOGY STUDIES: No new radiology studies available. PHYSICAL EXAMINATION: GENERAL: Alert and oriented, comfortable in bed, no acute distress. CV: S1-S2. CHEST: Equal expansion. Clear to auscultation. No acute distress. HEENT: Moist. No pallor. No JVD. ABDOMEN: Soft and nontender. No distention. Positive bowel sounds. EXTREMITIES: Right knee is slightly swollen. No significant redness. Has some discomfort on physical exam. ASSESSMENT AND PLAN: 1. Septic knee of the right which is status post debridement, culture growing MSSA. 2. Diarrhea. The patient already has ordered for Clostridium difficile, for still we will add vancomycin p.o. and Questran twice a day. 3. End-stage renal disease. 4. Debility. 5. Pain management per others. 6. Discussed with Dr. Becerra in detail. Please refer to chart for more information. MD ALBERT Grossman/MODAlejandra /[id number]
[2019-12-18] MEDS: HYDROCODONE/APAP 5MG-325MG TAB PO PRN ×2 (11:43→14:43)
[2019-12-18] MEDS: VANCOMYCIN 250MG/5ML ORAL SOLN PO SCH ×2 (11:43→17:00)
[2019-12-18] MEDS: ACETAMINOPHEN 325 MG TAB PO PRN (12:21)
[2019-12-18] MEDS: ONDANSETRON HCL 4 MG ORAL DISINTEGRATING TAB PO PRN (12:22)
--- NOTE | 2019-12-18 14:00 | NUR ---
DIALYSIS COMPLETED. 2L REMOVED PER THE FILLER SHAKER.
[2019-12-18] MEDS: CHOLESTYRAMINE 4 GM PACKET PO SCH (18:00)
--- NOTE | 2019-12-18 18:00 | NUR ---
NO BM FOR PT YET FOR CDIFF . WAITING FOR BM FOR LAB.
--- NOTE | 2019-12-18 19:00 | NUR ---
RECEIVED THE PATIENT IN REPORT.PRIMO IN THE BED.
--- NOTE | 2019-12-18 19:00 | NUR ---
BEDSIDE SHIFT REPORT GIVEN TO THE HUMANITIES DEPARTMENT CHAIR RN. PT DENIED FURTHER NEEDS.
[2019-12-18] MEDS: CEFAZOLIN SOD 1 GM/NS 50ML 150 ML IV SCH (20:25)
[2019-12-18] MEDS: IBRUTINIB 140 MG PO SCH (20:32)
--- NOTE | 2019-12-18 22:00 | NUR ---
PATIENT STATED THAT HE USED TO HAVE IBRUTINIB 140 MG PO ONE CAP HS.HE REFUSED TO TAKE TWO CAPS [employer] WRITTEN ON THE BOTTLE TWO CAPS.
[2019-12-19] VITALS (9 sets, daily range): BP systolic 124–139; BP diastolic 55–64
[2019-12-19] MEDS: VANCOMYCIN 250MG/5ML ORAL SOLN PO SCH ×4 (00:05→17:01)
--- NOTE | 2019-12-19 00:19 | NUR ---
NO BM YET.NO PAIN VOICED.REPOSITIONED.BED LOCKED AND IN LOWEST POSITION.PHONE AND CALL LIGHT WITHIN REACH.INSTRUCTED TO CALL FOR ASSISTANCE NEEDED.
[2019-12-19 05:30] LABS: BASOPHILS % 0.2 % (0.0-1.0); EOSINOPHILS # (AUTO) 0.1 (0.0-0.4); EOSINOPHILS % 0.5 % (0.0-6.0); HEMATOCRIT 26.3 % (38.2-49.6); HEMOGLOBIN 8.2 g/dL (14.0-18.0); LYMPHOCYTES # (AUTO) 1.9 (1.0-3.2); LYMPHOCYTES % 12.7 % (18.0-39.1); MEAN CORPUSCULAR HEMOGLOBIN 30.1 pg (28-32); MEAN CORPUSCULAR HGB CONC 31.2 g/dL (31-35); MEAN CORPUSCULAR VOLUME 96.7 fL (81-99); MONOCYTES # (AUTO) 0.7 (0.2-0.8); MONOCYTES % 4.9 % (4.4-11.3); NEUTROPHILS # (AUTO) 11.9 (2.1-6.9); NEUTROPHILS % 80.8 % (38.7-80.0); PLATELET COUNT 126 x10e3/uL (140-360); RED BLOOD COUNT 2.72 x10e6/uL (4.3-5.7); RED CELL DISTRIBUTION WIDTH 15.9 % (11.7-14.4)
[2019-12-19 06:01] LABS: ALBUMIN 1.3 g/dL (3.5-5.0); ALBUMIN/GLOBULIN RATIO 0.3 (0.8-2.0); ALKALINE PHOSPHATASE 107 IU/L (40-150); ANION GAP 20.7 mmol/L (8-16); BLOOD UREA NITROGEN 60 mg/dL (7-26); BUN/CREATININE RATIO 13 (6-25); CALCIUM 9.3 mg/dL (8.4-10.2); CARBON DIOXIDE 25 mmol/L (22-29); CHLORIDE 97 mmol/L (98-107); EST GLOMERULAR FILTRATION RATE 12 ML/MIN (60-); GLUCOSE 121 mg/dL (74-118); POTASSIUM 5.7 mmol/L (3.5-5.1); SODIUM 137 mmol/L (136-145)
[2019-12-19 06:03] LABS: ALANINE AMINOTRANSFERASE < 6 IU/L (0-55)
[2019-12-19] MEDS: HYDROCODONE/APAP 5MG-325MG TAB PO PRN ×4 (06:26→22:02)
--- NOTE | 2019-12-19 07:00 | NUR ---
BED SIDE SHIFT REPORT GIVEN TO ONCOMING RN.STABLE CONDITION.
[2019-12-19] MEDS: PREDNISONE 5 MG TAB PO SCH (08:41)
[2019-12-19] MEDS: FOLIC ACID/CYANOCOB/PYRIDOXINE TAB PO SCH (08:41)
[2019-12-19] MEDS: AMLODIPINE BESYLATE 5 MG TAB PO SCH (08:41)
[2019-12-19] MEDS: CALCIUM ACETATE 667 MG GELCAP PO SCH ×3 (08:41→17:01)
[2019-12-19] MEDS: ALLOPURINOL 100 MG TAB PO SCH (08:42)
[2019-12-19] MEDS: CHOLESTYRAMINE 4 GM PACKET PO SCH ×2 (08:42→17:01)
[2019-12-19] MEDS: LIDOCAINE 4% PATCH TP SCH (08:42)
[2019-12-19] MEDS: INSULIN REGULAR, HUMAN 100 UNIT/1 ML 3ML VIAL SQ SCH ×4 (08:47→21:00)
--- NOTE | 2019-12-19 10:45 | NUR ---
Pt sleeping soundly and no family present. Process Inspector left a card describing availability of manufacturing test technician and instructions on how to contact a manufacturing test technician. LEANN NINO Process Inspector Spiritual Care Department O: [phone]
--- NOTE | 2019-12-19 10:59 | Progress Note ---
DATE: SUBJECTIVE: The patient is seen and evaluated. Available labs and notes reviewed. Discussed with Dr. Becerra and discussed with staff. REVIEW OF SYSTEMS: The patient is holding bag. However, he responds that he is not nauseated and is not vomiting. He states he is eating fine and he says that his right knee pain is improving. No fever. No chills. No chest pain. No cough. PHYSICAL EXAMINATION: VITAL SIGNS: Temperature 98.4, pulse is 88, respirations 21, blood pressure 130/64. GENERAL: Alert and oriented, in no acute distress. CV: S1-S2. CHEST: Equal expansion. Clear to auscultation. No acute distress. ABDOMEN: Soft, nontender. No distention. HEENT: Moist. No pallor. No JVD. EXTREMITIES: Right knee still with slight edema. No erythema. It is not as tender on physical exam. Still feels like soft, at about 10 o'clock above the patella, otherwise no acute finding. No active drainage noted. MEDICATIONS: Medication list reviewed. From Infectious Disease point of view, the patient is on vancomycin p.o., cefazolin with dialysis. LABORATORY STUDIES: White count 14.77, improved from 15.77 yesterday, hemoglobin 8.2, platelets 126, improved from 109. Sodium 137, potassium 5.7, creatinine 4.08. MICROBIOLOGY: Wound culture shows MSSA from knee. RADIOLOGY: No new radiology study is available. ASSESSMENT AND PLAN: 1. Septic right knee, status post debridement with culture growing methicillin-sensitive Staphylococcus aureus. 2. Diarrhea, the patient started on vancomycin p.o. and Questran. Clostridium difficile is not done. 3. End-stage renal disease. 4. Right knee pain. 5. Debility. The patient remains on cefazolin with hemodialysis and vancomycin p.o. for loose stool, attending's notes noted, hyperkalemia addressed. However, the patient is on dialysis. Leukocytosis is improved. Continue to monitor patient clinically and follow with the labs. Discussed with Dr. Becerra in detail. Please refer to chart for more information. Dictated by Julian Partida PA-C (Al) Nabila Becerra MD /MODL /[id number]
[2019-12-19] MEDS ORDERED: SOD POLYSTYRENE SULFONATE SUSP 15 GM/60 ML BTL PO NR (15:32)
[2019-12-19] MEDS ORDERED: LACTULOSE SYRUP 20 GM/30 ML UDC PO NR (15:32)
--- NOTE | 2019-12-19 15:38 | NUR ---
[facility] so pt may have a round of dialysis today stat, spoke with Rachelle.
--- NOTE | 2019-12-19 17:23 | NUR ---
2) 1 liter bags of saline, to start HD. ordered by Dr. Sommer.
[2019-12-19] MEDS ORDERED: SODIUM CHLORIDE 0.9% 1000ML 2,000 ML ONE (17:27)
[2019-12-19] MEDS ORDERED: ALBUMIN 25% 12.5GM 0.25 GM/ML BTL IV NR (17:45)
[2019-12-19] MEDS: ACETAMINOPHEN 325 MG TAB PO PRN (18:43)
--- NOTE | 2019-12-19 19:00 | NUR ---
RECEIVED THE PATIENT IN REPORT.DIALYSIS IS GOING ON.STABLE CONDITION.
--- NOTE | 2019-12-19 19:24 | NUR ---
walking round complete pt stable at shift change.
--- NOTE | 2019-12-19 21:30 | NUR ---
dialysis completed 1.1 litre removed.stable condition.
[2019-12-19] MEDS: IBRUTINIB 140 MG PO SCH (22:02)
[2019-12-20] VITALS (8 sets, daily range): BP systolic 108–144; BP diastolic 49–68
[2019-12-20] MEDS: VANCOMYCIN 250MG/5ML ORAL SOLN PO SCH ×4 (00:27→17:06)
[2019-12-20 05:29] LABS: BASOPHILS % 0.1 % (0.0-1.0); EOSINOPHILS # (AUTO) 0.1 (0.0-0.4); EOSINOPHILS % 0.8 % (0.0-6.0); HEMATOCRIT 23.9 % (38.2-49.6); HEMOGLOBIN 7.3 g/dL (14.0-18.0); LYMPHOCYTES # (AUTO) 1.8 (1.0-3.2); LYMPHOCYTES % 15.7 % (18.0-39.1); MEAN CORPUSCULAR HEMOGLOBIN 29.6 pg (28-32); MEAN CORPUSCULAR HGB CONC 30.5 g/dL (31-35); MEAN CORPUSCULAR VOLUME 96.8 fL (81-99); MONOCYTES # (AUTO) 0.6 (0.2-0.8); NEUTROPHILS # (AUTO) 8.8 (2.1-6.9); NEUTROPHILS % 77.6 % (38.7-80.0); PLATELET COUNT 127 x10e3/uL (140-360); RED BLOOD COUNT 2.47 x10e6/uL (4.3-5.7); RED CELL DISTRIBUTION WIDTH 15.5 % (11.7-14.4)
[2019-12-20 05:53] LABS: ALBUMIN 1.5 g/dL (3.5-5.0); ALBUMIN/GLOBULIN RATIO 0.3 (0.8-2.0); ALKALINE PHOSPHATASE 87 IU/L (40-150); BLOOD UREA NITROGEN 53 mg/dL (7-26); BUN/CREATININE RATIO 11 (6-25); CALCIUM 8.4 mg/dL (8.4-10.2); CARBON DIOXIDE 25 mmol/L (22-29); CHLORIDE 97 mmol/L (98-107); CREATININE, SERUM 4.77 mg/dL (0.72-1.25); EST GLOMERULAR FILTRATION RATE 12 ML/MIN (60-); GLUCOSE 97 mg/dL (74-118); SODIUM 136 mmol/L (136-145)
[2019-12-20 05:59] LABS: ALANINE AMINOTRANSFERASE < 6 IU/L (0-55)
--- NOTE | 2019-12-20 06:56 | NUR ---
Bed side shift report given to oncoming RN.stable condition.
[2019-12-20] MEDS: INSULIN REGULAR, HUMAN 100 UNIT/1 ML 3ML VIAL SQ SCH ×4 (07:01→21:00)
[2019-12-20] MEDS: CALCIUM ACETATE 667 MG GELCAP PO SCH ×3 (07:32→17:06)
[2019-12-20] MEDS: ALLOPURINOL 100 MG TAB PO SCH (08:43)
[2019-12-20] MEDS: CHOLESTYRAMINE 4 GM PACKET PO SCH ×2 (08:43→17:06)
[2019-12-20] MEDS: AMLODIPINE BESYLATE 5 MG TAB PO SCH (08:43)
[2019-12-20] MEDS: FOLIC ACID/CYANOCOB/PYRIDOXINE TAB PO SCH (08:43)
[2019-12-20] MEDS: PREDNISONE 5 MG TAB PO SCH (08:43)
[2019-12-20] MEDS: LIDOCAINE 4% PATCH TP SCH (08:43)
--- NOTE | 2019-12-20 10:28 | Progress Note ---
DATE: SUBJECTIVE: The patient is seen and evaluated. Available labs and notes reviewed. The patient states that his pain has improved. REVIEW OF SYSTEMS: No nausea, vomiting, fever, chills, chest pain, or shortness of breath. The patient is seen by Orthopedic on 12/19/2019, status post I and D of right knee. I had a long discussion with the daughter. OBJECTIVE: VITAL SIGNS: Temperature 98.7, pulse is 95, respirations 18, and blood pressure 144/66. GENERAL: Alert and oriented, in no acute distress. CV: S1, S2. CHEST: Equal expansion. Clear to auscultation. No acute distress. ABDOMEN: Soft, nontender. No distention. EXTREMITIES: Right knee seems to be decreased in swelling. No erythema. No significant tenderness during my exam. MEDICATIONS: Medication list reviewed. As far as Infectious Disease point of view, the patient is on vancomycin p.o., cefazolin with dialysis 3 g. LABORATORY STUDIES: White count of 11.31, improved from 14.77, hemoglobin 7.3, platelet 127, stable from yesterday 126. The patient is on dialysis with a sodium level of 136 and potassium of 5. SEROLOGY: No new serology studies available. MICROBIOLOGY: Knee culture showed MSSA. IMAGING: No new radiology studies available. ASSESSMENT AND PLAN: 1. Septic right knee, status post I and D by Orthopedic, culture grew methicillin-sensitive Staphylococcus aureus. Antibiotic changed to cefazolin. 2. Diarrhea, improved. Continue vancomycin p.r.n. Questran. No Clostridium difficile test is done. 3. End-stage renal disease. Continue with dialysis per others. Antibiotics dosed based on renal function. 4. Pain per others. 5. Debility, multifactorial. Continue with PT/OT as appropriate. 6. Leukocytosis, improving. 7. Continue with antibiotic. Monitor the patient clinically. Follow with the labs. Discussed with Dr. Becerra in details. Please refer to chart for more information. Dictated by Julian Partida PA-C (Al) Nabila Becerra MD /MODL /[id number]
[2019-12-20] MEDS ORDERED: SODIUM CHLORIDE 0.9% 1000ML 2,000 ML ONE (12:27)
--- NOTE | 2019-12-20 13:32 | NUR ---
CM to pt's bedside to discuss SNF order. Pt asked that CM speak to his daughter Farrah Biswas. CM placed call to Ms. Biswas at [phone]. Discussed SNF. Daughter states they were thinking about arranging for pt to go to her sister's house, since her sister is home and would be able to assist pt. States pt would probably do better if he is able to visit with family, since SNFs still do not allow visitors. Would need HH and DME if pt goes home. Also pt currently has outpatient dialysis at [facility]. CM discussed pt's current progress with PT to see if family would be able to provide assistance pt needs. Daughter states she will be at the hospital in an hour or so. Would like to speak with CM when she gets here. CM to follow up when daughter is here.
[2019-12-20] MEDS ORDERED: MIDODRINE HCL 5 MG TABLET PO PRN (14:00)
[2019-12-20] MEDS ORDERED: SODIUM CHLORIDE 0.9% 1000ML 2,000 ML IV PRN (14:15)
[2019-12-20] MEDS ORDERED: ALBUMIN 25% 12.5GM 0.25 GM/ML BTL IV NR (14:15)
[2019-12-20] MEDS ORDERED: ALBUMIN 25% 12.5GM 0.25 GM/ML BTL IV PRN (14:15)
--- NOTE | 2019-12-20 15:15 | NUR ---
Spoke to pt's daughter Farrah Biswas. Discussed plan of care. Daughter states they were hoping to take pt home, but is now seeing that pt needs more care than anticipated. She said they would prefer to have pt to go to facility where Dr. Cunha can be pt's physician. CM provided her with in network facilities and pointed out the ones that Dr. Cunha goes to. Ms. Biswas stated she's leaning towards [facility]. CM got SERVANDO Sylvester from [facility] on the phone to answer all questions. She states she will talk to her sisters and her dad and call CM back with final decision.
--- NOTE | 2019-12-20 15:55 | NUR ---
patient has some edema to RLE. re-checked pulses with doppler. strong pulses present.
--- NOTE | 2019-12-20 16:02 | NUR ---
Received call from pt's daughter/AIRAM Yan. States she has made decision. Met with daughter on unit. She gave choice for [facility]. Signed choice letter placed in chart. Copy to daughter. Discussed IMM letter. She verbalized understanding. Signed copy placed in chart. Copy to pt's daughter. Referral for SNF was sent to [facility] at [phone]. SERVANDO Sylvester was informed of referral.
--- NOTE | 2019-12-20 16:31 | NUR ---
Nutrition Intervention Note RD Recommendation(s) for Physician: -Continue current diet as ordered -Recommend Nepro BID for added nutrition Plan of Care: RD following, monitoring for tolerance and adequacy Nutrition reason for involvement: Length of stay RD Assessment (12/20/19) Pt is a 79 year old male admitted with septic right knee. Pt was sleeping at time of visit; therefore, unable to obtain nutrition history from pt. It is recorded that pt has been consuming 25-50% of meals during admission. Pt had weights ranging from 143-152 lbs per previous admission in May 2019; therefore, no weight loss is evident per weight history. Recommend Nepro BID for added nutrition. Will continue to monitor. Principal Problems/Diagnoses: septic right knee PMH: diabetes, peripheral vascular disease, cellulitis, gout, HTN, anemia I/O: 240/- GI: last recorded BM 12/18 Skin: no pressure ulcers or wounds Labs: (12/20/19) Na 136, BUN 53, Cr 4.77 Meds: vancomycin, insulin, Phoslo, cholestyramine, prednisone, Nephro-Nilay, zofran Ht: 66 inches Wt: 156 lbs BMI: 25.2 kg/m2 IBW: 142 lbs Malnutrition Evaluation (12/20/19) The patient does not meet criteria for a specified degree of malnutrition at this time. Will re-evaluate at follow-up as appropriate. Energy intake: < or = 50% of estimated energy requirements for >5 days Weight loss: No weight loss is evident per weight history Fat loss: unable to evaluate Muscle loss: unable to evaluate Supporting Evidence: Fluid accumulation: unable to evaluate Functional Status: unable to evaluate Nutrition Prescription (Diet Order): Renal/diabetic diet Estimated Nutritional Needs: 2384-7531 calories/day (30-35 kcal/kg CBW) 85-106 g protein/day (1.2-1.5 g pro/kg CBW) Diet Adequacy: Not meeting calorie needs, Not meeting protein needs Tolerance: Tolerating PO Diet Education Needs Assessment: RD is available for diet education as needed Nutrition Care Level: moderate Nutrition Diagnosis: Inadequate energy intake related to decreased ability to consume sufficient energy as evidenced 25-50% meal intake. Goal: Patient will meet 75-100% of estimated needs by follow up Progress: N/A Interventions: -mineral, carbohydrate - modified diet, Commercial beverage Monitoring/Evaluation: -Total energy intake, Total protein intake, Modified diet, Liquid supplement, Weight change Signed: Taya Gomez RD, LD
[2019-12-20] MEDS: HYDROCODONE/APAP 5MG-325MG TAB PO PRN (18:30)
[2019-12-20 18:59] LABS: OCCULT BLOOD STOOL POSITIVE (NEGATIVE)
[2019-12-20] MEDS: CEFAZOLIN SOD 1 GM/NS 50ML 150 ML IV SCH (20:19)
[2019-12-20] MEDS: IBRUTINIB 140 MG PO SCH (20:19)
[2019-12-21] VITALS (7 sets, daily range): BP systolic 113–146; BP diastolic 51–60
[2019-12-21] MEDS: VANCOMYCIN 250MG/5ML ORAL SOLN PO SCH ×4 (00:26→18:31)
[2019-12-21] MEDS: ONDANSETRON HCL 4 MG ORAL DISINTEGRATING TAB PO PRN (00:37)
[2019-12-21] MEDS: HYDROCODONE/APAP 5MG-325MG TAB PO PRN ×2 (00:46→23:05)
[2019-12-21 06:37] LABS: BASOPHILS % 0.2 % (0.0-1.0); EOSINOPHILS # (AUTO) 0.1 (0.0-0.4); EOSINOPHILS % 0.4 % (0.0-6.0); LYMPHOCYTES # (AUTO) 1.7 (1.0-3.2); LYMPHOCYTES % 14.8 % (18.0-39.1); MEAN CORPUSCULAR HEMOGLOBIN 29.7 pg (28-32); MEAN CORPUSCULAR HGB CONC 30.2 g/dL (31-35); MEAN CORPUSCULAR VOLUME 98.4 fL (81-99); MONOCYTES # (AUTO) 0.7 (0.2-0.8); MONOCYTES % 6.2 % (4.4-11.3); NEUTROPHILS % 77.7 % (38.7-80.0); PLATELET COUNT 146 x10e3/uL (140-360); RED BLOOD COUNT 1.85 x10e6/uL (4.3-5.7)
--- NOTE | 2019-12-21 06:39 | NUR ---
paged dr peter for new consult.
[2019-12-21 06:53] LABS: ALBUMIN 1.7 g/dL (3.5-5.0); ALBUMIN/GLOBULIN RATIO 0.5 (0.8-2.0); ALKALINE PHOSPHATASE 76 IU/L (40-150); ANION GAP 15.2 mmol/L (8-16); BLOOD UREA NITROGEN 35 mg/dL (7-26); BUN/CREATININE RATIO 10 (6-25); CARBON DIOXIDE 27 mmol/L (22-29); CHLORIDE 100 mmol/L (98-107); CREATININE, SERUM 3.57 mg/dL (0.72-1.25); EST GLOMERULAR FILTRATION RATE 17 ML/MIN (60-); GLUCOSE 134 mg/dL (74-118); POTASSIUM 4.2 mmol/L (3.5-5.1); SODIUM 138 mmol/L (136-145)
[2019-12-21 06:54] LABS: ALANINE AMINOTRANSFERASE < 6 IU/L (0-55)
[2019-12-21 06:55] LABS: HEMATOCRIT 18.2 % (38.2-49.6); HEMOGLOBIN 5.5 g/dL (14.0-18.0)
[2019-12-21] MEDS ORDERED: SODIUM CHLORIDE 0.9% 250ML 250 ML IV ONE (07:45)
[2019-12-21] MEDS: CALCIUM ACETATE 667 MG GELCAP PO SCH ×3 (07:57→18:31)
[2019-12-21] MEDS: INSULIN REGULAR, HUMAN 100 UNIT/1 ML 3ML VIAL SQ SCH ×4 (07:58→21:30)
[2019-12-21] MEDS: PREDNISONE 5 MG TAB PO SCH (08:43)
[2019-12-21] MEDS: PANTOPRAZOLE 40 MG 10ML VIAL IV SCH ×2 (08:43→18:31)
[2019-12-21] MEDS: CHOLESTYRAMINE 4 GM PACKET PO SCH ×2 (08:43→18:31)
[2019-12-21] MEDS: LIDOCAINE 4% PATCH TP SCH (08:43)
[2019-12-21] MEDS: ALLOPURINOL 100 MG TAB PO SCH (08:43)
[2019-12-21] MEDS: FOLIC ACID/CYANOCOB/PYRIDOXINE TAB PO SCH (08:43)
--- NOTE | 2019-12-21 11:13 | Progress Note ---
DATE: SUBJECTIVE: The patient is seen and evaluated. Available labs and notes reviewed. I spoke with orthopedic PA. REVIEW OF SYSTEMS: Still with some mild pain in right knee. Denied nausea, vomiting, fever, chills, chest pain, or shortness of breath. PHYSICAL EXAMINATION: VITAL SIGNS: Temperature 97.1, pulse is 97, respirations 18, and blood pressure 118/57. GENERAL: Alert and oriented, in no acute distress. CV: S1, S2. CHEST: Equal expansion. Clear to auscultation. No acute distress. ABDOMEN: Soft, nontender. No distention. HEENT: Moist. No pallor. No JVD. EXTREMITIES: Right knee seems slightly increase in the swelling of the suprapatellar area, but remains weak. No erythema. Pain has not worsened since yesterday. On my examination, sutures seem to be intact. No active drainage noted from the surgical sites. MEDICATIONS: The patient is on vancomycin p.o. and cefazolin. LABORATORY STUDIES: White count of 11.52, hemoglobin is 5.5, platelet count of 146, which has improved from 127. Sodium 138, potassium 4.2 creatinine 3.57. SEROLOGY: C difficile is pending. MICROBIOLOGY: No new culture. Previous culture from the knee showed MSSA. ASSESSMENT AND PLAN: 1. Septic right knee, status post I and D, culture methicillin-sensitive Staphylococcus aureus, on cefazolin. 2. Diarrhea-vancomycin started few days back and Questran. Clostridium difficile still in progress. 3. End-stage renal disease, dialysis per others. 4. Debility. 5. Leukocytosis. 6. Pain. Continue with antibiotics. Continue with the wound care. PT/OT. Dialysis per Renal. Leukocytosis is improving in general and stable around 11.5. Continue monitoring the patient clinically and follow with the labs. Dictated by Julian Partida PA-C (Al) Nabila Becerra MD /MODL /[id number]
[2019-12-21 12:06] LABS: C DIFFICILE TOXIN A&B AMP PROB NEGATIVE (NEGATIVE)
--- NOTE | 2019-12-21 14:48 | NUR ---
CARE HOME FACILITY DISCHARGE INFORMATION PATIENT HAS BEEN ACCEPTED TO: [facility] [address] [place] [address] ACCEPTING STAGE SET DESIGNER: Beltran Mccullough ACCEPTING MD: Dr. Cunha ROOM:112 NURSE CALL REPORT TO: [phone] IMM SIGNED AND OBTAINED (if applicable): IMM obtained on 12/20/19 THE FOLLOWING DOCUMENTS MUST ACCOMPANY PATIENT FOR TRANSFER: copy of chart, transfer MAR COPIED CHART: [place], director community organization RTF: completed and placed with pt's packet at nurses station [id number] DNR: n/a YAMINI Downing was informed of bed. COVID form faxed to facility, copy on chart.
[2019-12-21 20:38] LABS: BASOPHILS % 0.2 % (0.0-1.0); EOSINOPHILS % 0.3 % (0.0-6.0); HEMATOCRIT 30.9 % (38.2-49.6); LYMPHOCYTES # (AUTO) 1.6 (1.0-3.2); LYMPHOCYTES % 10.6 % (18.0-39.1); MEAN CORPUSCULAR HEMOGLOBIN 29.6 pg (28-32); MEAN CORPUSCULAR HGB CONC 32.4 g/dL (31-35); MEAN CORPUSCULAR VOLUME 91.4 fL (81-99); MONOCYTES # (AUTO) 0.7 (0.2-0.8); MONOCYTES % 4.7 % (4.4-11.3); NEUTROPHILS # (AUTO) 12.3 (2.1-6.9); NEUTROPHILS % 83.5 % (38.7-80.0); PLATELET COUNT 139 x10e3/uL (140-360); RED BLOOD COUNT 3.38 x10e6/uL (4.3-5.7); RED CELL DISTRIBUTION WIDTH 15.9 % (11.7-14.4)
[2019-12-21] MEDS: IBRUTINIB 140 MG PO SCH (21:16)
--- NOTE | 2019-12-21 21:55 | Consultation ---
DATE OF CONSULTATION: GI Consult note BODY AFTER REPORT: CONSULTING PHYSICIAN: Kei Cuhna MD. REASON FOR CONSULT: Melena x2 days. HISTORY OF PRESENTING ILLNESS: A 79 years old very pleasant male, who has past medical history of end-stage renal disease, on hemodialysis three times a week, got admitted directly from Dr. Rosenbaum (Orthopedics) office for drainage of right knee septic arthritis. He has been in the hospital for more than a week now. He has had drainage of the septic arthritis on 12/14/2019. Routine blood work revealed hemoglobin 8.2. The patient has chronic anemia. His hemoglobin subsequently dropped down to 5.5 today. He has also been passing dark stool for the last couple of days. His stool has also been tested positive for occult blood. The patient reports no abdominal pain. He has not had any upper endoscopy in his life in the past. Reports no upper GI symptoms. He is not on any anticoagulants. REVIEW OF SYSTEMS: Twelve-point system reviewed. Positive pertinent as per HPI. PAST MEDICAL HISTORY: CLL type 2 angioedema, gout, end-stage renal disease on hemodialysis. PAST SURGICAL HISTORY: 1. I and D of right knee septic arthritis on this admission. 2. AV fistula placement in the left upper extremity for dialysis. 3. Colonoscopy more than five years ago. FAMILY HISTORY: Noncontributory. SOCIAL HISTORY: No smoking, alcohol, or any illicit drug use. ALLERGIES: NONE. HOME MEDICATIONS: Acetaminophen with codeine, allopurinol, amlodipine, calcium acetate, folic acid with vitamin B12, ibrutinib 140 mg daily for CLL, icatibant acetate 30 mg p.o. as needed prednisone 5 mg p.o. daily. Inpatient medication reviewed as per SEP. He is getting intravenous vancomycin and cefazolin along with other medication. PHYSICAL EXAMINATION: VITAL SIGNS: Temperature 97.2, pulse 96, respirations 16, blood pressure 136/53, oxygen saturation 100% on room air. GENERAL: Not in any apparent distress. HEENT: Oral mucosa is moist. Anicteric sclerae. CVS: S1 and S2 regular. LUNGS: Bilaterally grossly clear. ABDOMEN: Soft, nondistended, and nontender. No palpable mass or hernia. Positive bowel sounds. EXTREMITIES: Warm, incisional scar on right knee, AV fistula in the left arm. LABORATORY DATA: WBC 11.52, hemoglobin 5.5, down from 7.3 yesterday, hematocrit 18.2, platelet count 146,000. Sodium 138, potassium 4.2, chloride 100, bicarb 27, BUN 35, creatinine 3.57, and glucose 134. He is stool occult blood positive, he is stool C diff negative. Chest x-ray, no focal pneumonia or pulmonary edema. IMPRESSION: Melena with 2 point drop in hemoglobin (from 7.3 to 5.5). The patient is hemodynamically stable. PLAN: The patient is currently on Protonix IV twice daily. I do not feel the need for starting Protonix infusion as I do not feel any active upper GI bleeding. The patient is going to get dialysis today. We will do upper endoscopy tomorrow. Further recommendation based upon endoscopy finding. I thank Dr. Cunha for allowing me to participate in the care of this patient. Adarsh Melo MD SA/ANTON /[id number]
[2019-12-22] VITALS (8 sets, daily range): BP systolic 123–137; BP diastolic 53–68
[2019-12-22] MEDS: VANCOMYCIN 250MG/5ML ORAL SOLN PO SCH ×2 (00:04→05:38)
[2019-12-22 06:12] LABS: BASOPHILS % 0.3 % (0.0-1.0); EOSINOPHILS # (AUTO) 0.1 (0.0-0.4); EOSINOPHILS % 0.6 % (0.0-6.0); HEMATOCRIT 26.9 % (38.2-49.6); HEMOGLOBIN 8.8 g/dL (14.0-18.0); LYMPHOCYTES % 17.7 % (18.0-39.1); MEAN CORPUSCULAR HEMOGLOBIN 30.2 pg (28-32); MEAN CORPUSCULAR HGB CONC 32.7 g/dL (31-35); MEAN CORPUSCULAR VOLUME 92.4 fL (81-99); MONOCYTES # (AUTO) 0.7 (0.2-0.8); MONOCYTES % 6.6 % (4.4-11.3); NEUTROPHILS # (AUTO) 8.2 (2.1-6.9); NEUTROPHILS % 74.1 % (38.7-80.0); PLATELET COUNT 144 x10e3/uL (140-360); RED BLOOD COUNT 2.91 x10e6/uL (4.3-5.7); RED CELL DISTRIBUTION WIDTH 15.8 % (11.7-14.4)
[2019-12-22 06:44] LABS: ALBUMIN 1.6 g/dL (3.5-5.0); ALBUMIN/GLOBULIN RATIO 0.4 (0.8-2.0); ALKALINE PHOSPHATASE 72 IU/L (40-150); BLOOD UREA NITROGEN 29 mg/dL (7-26); BUN/CREATININE RATIO 9 (6-25); CALCIUM 7.7 mg/dL (8.4-10.2); CARBON DIOXIDE 28 mmol/L (22-29); CHLORIDE 101 mmol/L (98-107); CREATININE, SERUM 3.38 mg/dL (0.72-1.25); EST GLOMERULAR FILTRATION RATE 18 ML/MIN (60-); GLUCOSE 125 mg/dL (74-118); SODIUM 138 mmol/L (136-145)
[2019-12-22 06:48] LABS: ALANINE AMINOTRANSFERASE < 6 IU/L (0-55)
[2019-12-22] MEDS: INSULIN REGULAR, HUMAN 100 UNIT/1 ML 3ML VIAL SQ SCH ×4 (07:30→21:00)
[2019-12-22] MEDS: ALLOPURINOL 100 MG TAB PO SCH (09:27)
[2019-12-22] MEDS: LIDOCAINE 4% PATCH TP SCH (09:27)
[2019-12-22] MEDS: PANTOPRAZOLE 40 MG 10ML VIAL IV SCH ×2 (09:27→17:43)
[2019-12-22] MEDS: CALCIUM ACETATE 667 MG GELCAP PO SCH ×3 (09:27→17:44)
[2019-12-22] MEDS: CHOLESTYRAMINE 4 GM PACKET PO SCH ×2 (09:27→17:44)
[2019-12-22] MEDS: FOLIC ACID/CYANOCOB/PYRIDOXINE TAB PO SCH (09:27)
--- NOTE | 2019-12-22 11:27 | Progress Note ---
DATE: SUBJECTIVE: The patient is seen and evaluated. Available labs and notes reviewed. Discussed with Dr. Becerra. Discussed with the nurse. The patient has multiple bloody diarrhea. REVIEW OF SYSTEMS: No nausea, vomiting, fever, or chills. Has poor appetite and weak. PHYSICAL EXAMINATION: VITAL SIGNS: Temperature 98.5, pulse 90, respiration 20, and blood pressure 128/68. GENERAL: Alert and oriented, comfortable, no acute distress in bed. The patient is seen with the nurse in the room, taking his medication. CV: S1 and S2. CHEST: Equal expansion. No acute distress. ABDOMEN: Soft. Bowel sounds positive. Nontender. HEENT: Moist. No pallor. No JVD. EXTREMITIES: Right knee still with swelling, mostly suprapatellar and motion on the lateral side. MEDICATION/ANTIBIOTICS: The patient is on vancomycin p.o. and cefazolin. LABORATORY STUDIES: White count of 11.01, hemoglobin 8.8, and platelet 144. MICROBIOLOGY: No new microbiology. IMAGING: No new imaging. ASSESSMENT AND PLAN: 1. Septic right knee, status post I and D. Culture shows methicillin-sensitive Staphylococcus aureus. The patient on cefazolin. 2. Diarrhea. Clostridium difficile negative. Stop vancomycin p.o. Continue with cefazolin. 3. Gastrointestinal bleed. GI on the case. Currently on Protonix. Plan for endoscopies most likely today by GI. 4. End-stage renal disease. Continue dialysis. 5. Debility. 6. Right knee pain per others. 7. Continue with cefazolin. Stop vancomycin p.o. Further management of this patient is based on daily findings on laboratory and physical examination. Discussed with the nurse. Please refer to chart for more information. Dictated by Julian Partida PA-C (Al) Nabila Becerra MD /MODL /[id number]
--- NOTE | 2019-12-22 15:45 | NUR ---
WOUND CARE SCREENING CONSULT FOR 79 YO MALE ADMITTED TO [facility] WITH A PRESENT HX OF SEPTIC RIGHT KNEE. STATUS POST I & D. PT IS ON CEFAZOLIN SEE eMAR FOR DOSE. OLY 15 ON MODERATE PUP STATUS AND INTERVENTIONS SURFACE: ALTERNATING PRESSURE MATTRESS. LABS: WBC-11.01 HGB- 8.8 GLUCOSE- 125 MICRO: 12/13 WOUND CULTURE- STAPHYLOCOCCUS AUREUS. SKIN ASSESSMENT COMPLETE; PATIENT PRESENTS WITH I& D HEALING INCISIONS TO RIGHT PROXIMAL KNEE MEASURING 1 CMX 1 CM, LATERAL KNEE MEASURING 1CM X 1CM , MEDIAL KNEE MEASURING 1CM X 1CM. ALL SURGICAL INCISIONS APPROXIMATED BY 1 SUTURE, NO DRESSING IN PLACE, NO DRAINAGE, NO S/S OF INFECTION NOTED AT THIS TIME. PITTING EDEMA + 2 TO RIGHT LOWER LEG AND MULTIPLE BRUISING TO BILATERAL UPPER EXTREMITIES FROM PREVIOUS VENIPUNCTURES. NO OTHER SKIN AREAS OF CONCERN AT THIS TIME. RECOMMENDATIONS: NURSING TO CONTINUE TO MONITOR RIGHT KNEE I&D INSITION SUTURES DAILY AND TO REPORT ANY CHANGES TO MD. NURSING TO CONTINUE TO MONITOR PATIENT AND KEEP SKIN CLEAN AND FREE FROM STOOL OR IRRITATING MOISTURE AND CONTINUE TO FOLLOW MODERATE PUP INTERVENTIONS DAILY. NURSING TO CONTINUE REPOSITION PT SIDE TO SIDE EVERY TWO HOURS AND TO ENCOURAGE PT TO SELF REPOSITION IN BED NEEDED. NURSING TO MAINTAIN ALTERNATING PRESSURE MATTRESS. NURSING TO CONTINUE TO OFFLOAD FEET AND HEELS AT ALL TIMES WITH PILLOW SUSPENSION WHEN IN BED. NURSING TO CONTINUE TO ASSIST WITH PT NUTRITONAL SUPPLEMENTS TO ENSURE PROPER REQUIREMENTS FOR HEALING. NURSING TO CONTINUE TO ASSIST PT OUT OF BED DURING NURTRIONAL MEALS MUCH TOLERATED. NURSING TO CONSULT WOUND CARE NEEDED. Addendum: 12/22/19 at 1546 by Nithya Sapp RN Amended: Links added.
[2019-12-22] MEDS: SUCRALFATE 1 GM/10 ML SUSP NG SCH ×2 (17:43→22:15)
[2019-12-22] MEDS ORDERED: LIDOCAINE HCL 2% LOCAL INJ 5 ML SDV VIAL INJ ONE (18:40)
[2019-12-22] MEDS ORDERED: PROPOFOL IV EMULSION 10 MG/ML 20 ML VIAL ONE (18:40)
--- NOTE | 2019-12-22 19:10 | NUR ---
BEDSIDE SHIFT REPORT RECEIVED. PATIENT IS RESTING IN BED, RESP EVEN AND UNLABORED. EDUCATED PT ABOUT FALL PRECAUTIONS. PT VERBALIZED UNDERSTANDING. CALL LIGHT WITH IN EASY REACH. INSTRUCTED PT TO USE CALL LIGHT FOR ASSISTANCE. BED IS LOW/LOCKED. SIDE RAILS X2. BED ALARM IS ON. PT DENIES NEEDS AT THIS TIME.
[2019-12-22] MEDS ORDERED: SODIUM CHLORIDE 0.9% 250ML 250 ML IV ONE (19:15)
[2019-12-22] MEDS: IBRUTINIB 140 MG PO SCH (21:00)
[2019-12-22] MEDS: CEFAZOLIN SOD 1 GM/NS 50ML 150 ML IV SCH (22:15)
[2019-12-23] VITALS (9 sets, daily range): BP systolic 102–146; BP diastolic 54–76
[2019-12-23] MEDS: INSULIN REGULAR, HUMAN 100 UNIT/1 ML 3ML VIAL SQ SCH ×4 (07:30→20:45)
[2019-12-23] MEDS: SUCRALFATE 1 GM/10 ML SUSP NG SCH ×4 (07:30→20:45)
[2019-12-23 07:59] LABS: BASOPHILS % 0.2 % (0.0-1.0); EOSINOPHILS # (AUTO) 0.1 (0.0-0.4); EOSINOPHILS % 0.4 % (0.0-6.0); HEMATOCRIT 21.7 % (38.2-49.6); LYMPHOCYTES # (AUTO) 2.5 (1.0-3.2); LYMPHOCYTES % 18.5 % (18.0-39.1); MEAN CORPUSCULAR HEMOGLOBIN 29.5 pg (28-32); MEAN CORPUSCULAR HGB CONC 31.8 g/dL (31-35); MEAN CORPUSCULAR VOLUME 92.7 fL (81-99); MONOCYTES # (AUTO) 0.9 (0.2-0.8); MONOCYTES % 6.4 % (4.4-11.3); NEUTROPHILS # (AUTO) 9.9 (2.1-6.9); NEUTROPHILS % 73.9 % (38.7-80.0); PLATELET COUNT 152 x10e3/uL (140-360); RED BLOOD COUNT 2.34 x10e6/uL (4.3-5.7); RED CELL DISTRIBUTION WIDTH 15.5 % (11.7-14.4)
[2019-12-23] MEDS: CALCIUM ACETATE 667 MG GELCAP PO SCH ×3 (08:00→16:38)
[2019-12-23 08:13] LABS: ANION GAP 17.5 mmol/L (8-16); CALCIUM 7.7 mg/dL (8.4-10.2); CREATININE, SERUM 5.82 mg/dL (0.72-1.25); POTASSIUM 4.5 mmol/L (3.5-5.1)
[2019-12-23 08:21] LABS: HEMOGLOBIN 6.9 g/dL (14.0-18.0)
[2019-12-23] MEDS: LIDOCAINE 4% PATCH TP SCH (08:46)
[2019-12-23] MEDS: PANTOPRAZOLE 40 MG 10ML VIAL IV SCH ×2 (08:46→16:38)
[2019-12-23] MEDS: ALLOPURINOL 100 MG TAB PO SCH (08:46)
[2019-12-23] MEDS: FOLIC ACID/CYANOCOB/PYRIDOXINE TAB PO SCH (08:46)
[2019-12-23] MEDS: CHOLESTYRAMINE 4 GM PACKET PO SCH ×2 (08:46→16:38)
[2019-12-23] MEDS ORDERED: SODIUM CHLORIDE 0.9% 250ML 250 ML ONE ×2 (09:55→22:43)
--- NOTE | 2019-12-23 10:47 | Progress Note ---
DATE: SUBJECTIVE: The patient is a 79-year-old male, who came in with a septic knee, status post washout. The patient grew out methicillin-sensitive Staphylococcus aureus. The patient is on cefazolin currently, but prior to discharge, the patient had multiple GI bleed episodes. The patient had endoscopy, which showed esophageal ulcers and the patient is currently still bleeding and has black tarry stools. H and H have been ordered today has not been reviewed. The patient is confused and currently on schedule for dialysis. OBJECTIVE: VITAL SIGNS: Temperature is 97.8, pulse of 95, respirations of 18, blood pressure is 119/59, pulse oximetry of 99%. HEENT: Normocephalic and atraumatic. The patient is confused. CVS: S1 and S2 normal. Regular rate and rhythm. ABDOMEN: Nontender and nondistended. EXTREMITIES: Vascular changes, otherwise normal. LABORATORY VALUES: Pending. White count yesterday was 11.01, hemoglobin of 8.8, hematocrit 26.9. Chemistries are pending too. Glucoses have been running in the 140s. ASSESSMENT: Mr. Deondre Landa with: 1. Septic knee, status post washout, currently on vancomycin and cefazolin. 2. Melena with hemoglobin drop. Currently hemodynamically stable. The patient had an endoscopy with apparent ulcers. 3. End-stage renal disease. The patient is due for his dialysis today. 4. Blood loss anemia. We will continue to monitor his H and H and if necessary, the patient will get two more units of PRBC. Further recommendation per clinical course. We will continue to monitor the patient. The patient is critically sick and after this disposition would be sent to a SNF when medically stable. MD NURIS CampoJ/MODL /[id number]
[2019-12-23 11:44] LABS: BAND NEUTROPHILS % (MANUAL) 2 %; LYMPHOCYTES % (MANUAL) 19 % (19-48); MONOCYTES % (MANUAL) 6 % (3.4-9.0); NEUTROPHILS % (MANUAL) 73 % (40-74)
[2019-12-23 11:45] LABS: PLATELET ESTIMATE ADEQUATE; PLATELET MORPHOLOGY COMMENT NORMAL; RBC MORPHOLOGY COMMENT NORMAL
[2019-12-23] MEDS: ACETAMINOPHEN 325 MG TAB PO PRN (12:30)
--- NOTE | 2019-12-23 15:13 | Progress Note ---
DATE: SUBJECTIVE: Mr. Landa is currently lying in bed comfortably. He is a 79-year-old, who comes in with infected knee, had a washout. He grew MSSA, currently on cefazolin. The patient also had anemia with melena. He was seen by GI. He is currently lying in bed comfortably. PHYSICAL EXAMINATION: GENERAL: He is currently alert, oriented, does not seem to be in acute distress. VITAL SIGNS: Stable, afebrile. HEENT: Not icteric. NECK: Supple. CHEST: Clear. HEART: S1, S2. ABDOMEN: Soft. IMPRESSION: 1. Infected knee, status post incision and debridement, methicillin-susceptible Staphylococcus aureus. Plan is three weeks of IV cefazolin. 2. Diarrhea due to antibiotic, stable. 3. Anemia. Stable from Infectious Disease point of view. We will follow. MD ALBERT Grossman/ANTON /[id number]
[2019-12-23] MEDS: HYDROCODONE/APAP 5MG-325MG TAB PO PRN (16:40)
--- NOTE | 2019-12-23 17:29 | NUR ---
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 Patient is now vomitting and spitting blood as well as rectally bleeding. Dr. Cr was called for orders to be moved to [facility]. This morning patient was not arousable and his BP was very low. Patient was given 2 units of blood during dialysis and his vitals came WNL. Patient's vitals as of now are WNL, he does have pain 5/10 in his right knee. Patient is alert and oriented but is continually spitting up blood. Waiting for a call back from Dr. Cr.
[2019-12-23] MEDS ORDERED: SODIUM CHLORIDE 0.9% 250ML 250 ML IV ONE (18:00)
[2019-12-23] MEDS: IBRUTINIB 140 MG PO SCH ×2 (20:45→21:21)
--- NOTE | 2019-12-23 21:00 | NUR ---
TRANSFER PATIENT TO [facility] PER MD ORDER. VITAL SIGN STABLE AT THIS TIME.
[2019-12-23 21:06] LABS: BASOPHILS % 0.1 % (0.0-1.0); EOSINOPHILS % 0.3 % (0.0-6.0); HEMATOCRIT 23.3 % (38.2-49.6); HEMOGLOBIN 7.3 g/dL (14.0-18.0); LYMPHOCYTES # (AUTO) 1.6 (1.0-3.2); MEAN CORPUSCULAR HEMOGLOBIN 29.1 pg (28-32); MEAN CORPUSCULAR HGB CONC 31.3 g/dL (31-35); MEAN CORPUSCULAR VOLUME 92.8 fL (81-99); MONOCYTES # (AUTO) 0.5 (0.2-0.8); MONOCYTES % 5.6 % (4.4-11.3); NEUTROPHILS # (AUTO) 6.6 (2.1-6.9); NEUTROPHILS % 75.4 % (38.7-80.0); PLATELET COUNT 139 x10e3/uL (140-360); RED BLOOD COUNT 2.51 x10e6/uL (4.3-5.7); RED CELL DISTRIBUTION WIDTH 14.6 % (11.7-14.4)
[2019-12-23 21:15] LABS: INR 1.13; PROTHROMBIN TIME 15.2 seconds (11.9-14.5)
--- NOTE | 2019-12-23 21:45 | NUR ---
labs came back Hgb is 7.3, and INR is 1.13; will give 2 units of PRBC as ordered.
[2019-12-24] VITALS (8 sets, daily range): BP systolic 117–167; BP diastolic 54–69
--- NOTE | 2019-12-24 03:58 | NUR ---
type an cross blood done for the next blood transfusion, awaiting for blood to be ready.
[2019-12-24] MEDS: INSULIN REGULAR, HUMAN 100 UNIT/1 ML 3ML VIAL SQ SCH ×4 (07:30→21:00)
[2019-12-24] MEDS: SUCRALFATE 1 GM/10 ML SUSP NG SCH ×4 (07:30→20:30)
[2019-12-24] MEDS: CALCIUM ACETATE 667 MG GELCAP PO SCH ×3 (08:00→18:26)
--- NOTE | 2019-12-24 08:45 | Progress Note ---
DATE: SUBJECTIVE: The patient is a 79-year-old male, who came in with septic knee, status post washout. The patient started to bleed rectally profusely and also had hematemesis, was transferred out to [facility] for further monitoring and continuous monitoring. The patient is currently asleep, arousable, but goes back to sleep medications. The patient has received the 2nd unit of PRBCs. FFPs are on hold. Currently, patient still has melenic stools. No chest pains. No shortness of breath. OBJECTIVE: VITAL SIGNS: Temperature is 98.9, pulse of 94, respirations of 18, blood pressure is 138/54, pulse oximetry of 99% on 3 L of oxygen. HEENT: Normocephalic, atraumatic. There is some icterus present. CVS: S1 and S2 normal. Ejection systolic murmur. RESPIRATION: Decreased air entry air ABDOMEN: Soft, tender in suprapubic area. EXTREMITIES: No clubbing, cyanosis. No edema. LABORATORY VALUES: Hemoglobin is 7.3, hematocrit 23.3, and platelet count of 139. Chemistry shows sodium 135, potassium is 4.5, BUN of 50, creatinine of 5.82. Coags; INR is 1.13. ASSESSMENT: Mr. Deondre Landa with: 1. Acute gastrointestinal bleed. 2. Septic knee. 3. End-stage renal disease. 4. Blood loss anemia. 5. Bleeding diathesis. PLAN: Continue to monitor his hemoglobin, hematocrit. FFPs if INR is above 1.2. Continue with fluid status. Further recommendation per clinical course and dialysis as per renal recommendation the patient has very poor prognosis, but we will continue to monitor the patient. DISPOSITION: We will keep in the hospital . MD LEANNA Campo/MODL /[id number]
[2019-12-24] MEDS: CHOLESTYRAMINE 4 GM PACKET PO SCH ×2 (09:00→17:00)
[2019-12-24] MEDS: PANTOPRAZOLE 40 MG 10ML VIAL IV SCH ×2 (10:10→18:26)
[2019-12-24] MEDS ORDERED: PEG (High)/E-LYTE SOLN 4,000 ML BTL PO ONE (12:00)
[2019-12-24 12:15] LABS: HEMATOCRIT 32.5 % (38.2-49.6); HEMOGLOBIN 10.7 g/dL (14.0-18.0)
[2019-12-24] MEDS: FOLIC ACID/CYANOCOB/PYRIDOXINE TAB PO SCH (12:56)
--- NOTE | 2019-12-24 13:11 | Progress Note ---
DATE: SUBJECTIVE: This is day #10 of hospitalization. He is a 79-year-old, who comes in with infected knee, status post washout, started to bleed profusely. He was transferred to [facility] for monitoring. He received 2 units of RBC fresh frozen plasma. Melenic stools noted. OBJECTIVE: VITAL SIGNS: Temperature 98.9, heart rate 94, respiration 18, and blood pressure of 138/54. HEENT: He is normocephalic, not icteric. NECK: Supple. CHEST: Few crackles bilateral. HEART: S1 and S2. No S3, S4, or murmurs. ABDOMEN: Soft. Bowel sounds present. No tenderness. EXTREMITIES: No edema. SKIN: No rash. IMPRESSION: 1. Infected knee. Continue with antibiotic as ordered. 2. End-stage renal disease, on hemodialysis. 3. Acute gastrointestinal bleed with acute anemia, transfused. Bleeding disorder has been monitored. He is currently on cefazolin after dialysis. 4. History of gout. 5. The patient is stable from Infectious Disease point of view. MD ALBERT Grossman/ANTON /[id number]
--- NOTE | 2019-12-24 15:40 | Diagnostic Imaging Report ---
ADDENDUM #[address] Results were given to Dr[address] Raymond Stapleton by phone at 3:45 pm on 12/24/2019. Signed by: Dr. Lilibeth Arellano M.D. on 12/24/2019 3:47 PM ORIGINAL REPORT Tagged-RBC GI Bleed Study Clinical information: 79-year-old male with melena. Discussion: The patient's own red blood cells were labeled with 25.8 mCi of technetium-99m pertechnetate using the in vitro method (UltraTag). Dynamic images of the abdomen were obtained through 60 minutes. Distribution of tracer activity initially appears physiologic throughout the abdomen. At 45 minutes into the study, a very small focus of tracer accumulation appears in the right mid abdomen laterally. It propagates only slightly in a curvilinear manner toward the midline. Impression: Very small GI bleed is identified in the right mid abdomen laterally. The bleed appears quite small and propagates only slightly. Suspect that it is in small bowel, possibly at the ileocecal junction. Signed by: Dr. Lilibeth Arellano M.D. on 12/24/2019 3:36 PM
[2019-12-24] MEDS: LIDOCAINE 4% PATCH TP SCH (16:08)
[2019-12-24] MEDS: ALLOPURINOL 100 MG TAB PO SCH (16:08)
[2019-12-24] MEDS: IBRUTINIB 140 MG PO SCH (21:00)
[2019-12-25] VITALS (8 sets, daily range): BP systolic 101–147; BP diastolic 42–66
[2019-12-25] MEDS: HYDROCODONE/APAP 5MG-325MG TAB PO PRN ×2 (01:49→09:38)
[2019-12-25 05:10] LABS: BASOPHILS % 0.3 % (0.0-1.0); EOSINOPHILS # (AUTO) 0.1 (0.0-0.4); EOSINOPHILS % 0.6 % (0.0-6.0); HEMOGLOBIN 9.9 g/dL (14.0-18.0); LYMPHOCYTES # (AUTO) 1.6 (1.0-3.2); LYMPHOCYTES % 20.6 % (18.0-39.1); MEAN CORPUSCULAR HEMOGLOBIN 29.8 pg (28-32); MEAN CORPUSCULAR VOLUME 90.4 fL (81-99); MONOCYTES # (AUTO) 0.8 (0.2-0.8); MONOCYTES % 9.8 % (4.4-11.3); NEUTROPHILS # (AUTO) 5.4 (2.1-6.9); NEUTROPHILS % 68.2 % (38.7-80.0); PLATELET COUNT 162 x10e3/uL (140-360); RED BLOOD COUNT 3.32 x10e6/uL (4.3-5.7); RED CELL DISTRIBUTION WIDTH 14.4 % (11.7-14.4)
[2019-12-25 05:34] LABS: ANION GAP 17.7 mmol/L (8-16); CALCIUM 7.6 mg/dL (8.4-10.2); CREATININE, SERUM 5.87 mg/dL (0.72-1.25); POTASSIUM 4.7 mmol/L (3.5-5.1)
--- NOTE | 2019-12-25 05:46 | NUR ---
[facility] NOTIFY PATIENT HAS A PROCEDURE AT 0730 AND WILL NEED HD AFTERWARDS. WILL RELAY MESSAGE TO RN COMING TO FACILITY.
[2019-12-25 05:49] LABS: INR 1.14; PROTHROMBIN TIME 15.3 seconds (11.9-14.5)
--- NOTE | 2019-12-25 06:45 | NUR ---
DR BOCANEGRA AT BEDSIDE TO SEE PATIENT
[2019-12-25] MEDS: SUCRALFATE 1 GM/10 ML SUSP NG SCH ×4 (07:29→20:47)
[2019-12-25] MEDS: INSULIN REGULAR, HUMAN 100 UNIT/1 ML 3ML VIAL SQ SCH ×4 (07:30→20:37)
--- NOTE | 2019-12-25 07:59 | Progress Note ---
DATE: SUBJECTIVE: The patient is in room 187, brought down to IMCU secondary to continuous bleed and hemodynamic instability. The patient is status post transfusions. The patient is scheduled for colonoscopy, has been prepped already. The patient has no complaints today. OBJECTIVE: VITAL SIGNS: Temperature is 98.7, pulse of 95, respirations of 20, blood pressure is 141/85, and pulse oximetry of 100%. HEENT: Normocephalic and atraumatic. Pupils are reactive. CVS: S1 and S2 normal. Regular rate and rhythm. ABDOMEN: Nontender, nondistended. EXTREMITIES: No clubbing. No cyanosis. Positive for tenderness in the hip. No edema present. MEDICATIONS: Reviewed. LABORATORY VALUES: Hemoglobin is 9.9, hematocrit of 30.0. Chemistries; BUN of 60 and creatinine of 5.87. ASSESSMENT: Mr. Deondre Landa with, 1. Infected knee. Continue antibiotic. 2. Rectal bleed. Scheduled for a colonoscopy today. 3. Acute gastrointestinal bleed. 4. History of end-stage renal disease, on hemodialysis. Continue with dialysis as scheduled. PLAN: Again, colonoscopy today. Continue to monitor the patient's H and H. Further recommendation per clinical course. Planned SNF to be continuous for disposition. MD LEANNA Campo/KAYLEEL /[id number]
[2019-12-25] MEDS: CALCIUM ACETATE 667 MG GELCAP PO SCH ×3 (08:00→16:46)
[2019-12-25] MEDS ORDERED: SIMETHICONE 40 MG/0.6 ML BTL ONE (08:05)
[2019-12-25] MEDS: CHOLESTYRAMINE 4 GM PACKET PO SCH ×2 (09:00→17:50)
[2019-12-25] MEDS: FOLIC ACID/CYANOCOB/PYRIDOXINE TAB PO SCH (09:31)
[2019-12-25] MEDS: LIDOCAINE 4% PATCH TP SCH (09:31)
[2019-12-25] MEDS: ALLOPURINOL 100 MG TAB PO SCH (09:31)
[2019-12-25] MEDS: PANTOPRAZOLE 40 MG 10ML VIAL IV SCH ×2 (09:31→16:45)
--- NOTE | 2019-12-25 10:58 | NUR ---
FAXED PASRR TO FACILITY, FOUND PACKET AND FILED COPY IN CHART AND PACKET
--- NOTE | 2019-12-25 12:06 | Progress Note ---
DATE: SUBJECTIVE: The patient is seen and evaluated. Available labs and notes reviewed, discussed with the nurse. REVIEW OF SYSTEMS: Unable to obtain review of systems. The patient just came back from the EGD and colonoscopy. He still seems to be under anesthesia, however, seems to be comfortable in bed in no acute distress. PHYSICAL EXAMINATION: VITAL SIGNS: Temperature 97.2, pulse 78, respiration 23, blood pressure 115/64. GENERAL: Comfortable in bed, in no acute distress. HEENT: Moist. No pallor. NECK: No JVD. CV: S1, S2. CHEST: Equal expansion. Clear to auscultation. No acute distress. ABDOMEN: Soft and nontender. No distention. EXTREMITIES: Right knee, no significant edema. No erythema. No active drainage. Surgical sites seem to be clean, dry. MEDICATIONS: Reviewed. From Infectious Disease point of view, the patient is on cefazolin. LABORATORY STUDIES: White count of 7.92, hemoglobin 9.9, platelet 162. Sodium 141, potassium 4.7 creatinine 5.87. The patient is on dialysis. SEROLOGY: C diff negative on 12/19. Coronavirus PCR 12/13 was not detected. However, coronavirus PCR on 12/20 is pending. MICROBIOLOGY: Wound culture from the left knee showed MSSA back on 12/14/2019. ASSESSMENT AND PLAN: 1. Infected right knee with methicillin-susceptible Staphylococcus aureus-currently with cefazolin. 2. End-stage renal disease, on dialysis. 3. Anemia-concern of GI bleed, status post EGD and colonoscopy, there was a 7 cm approximately polyp, which was completely removed and retrieved. Otherwise, a few nonbleeding ulcers on both exams. 4. Gout. 5. Debility. 6. Continue with antibiotic. Monitor the patient clinically. Follow with the labs. Discussed with Dr. Becerra in details. Please refer to chart for more information. Thank you for this dictation. Dictated by Julian Partida PA-C (Al) Nabila Becerra MD /MODL /[id number]
[2019-12-25] MEDS: EPOETIN ALFA-EPBX 10,000 UNIT/ML VIAL SC SCH (12:45)
--- NOTE | 2019-12-25 14:52 | NUR ---
Nutrition Follow-up Notes RD Recommendation(s) for Physician: - Rec changing to Renal/ ADA 2000 kcal diet - Rec Nepro TID to increase protein-calorie intake - If PO continues to <50%, consider liberalizing diet - Assist with feeding as needed and family to bring foods from home Plan of Care: RD following, monitoring for tolerance and adequacy, ONS rec Nutrition reason for involvement: Follow up RD Assessment (12/25/19) Follow up assessment: Visited pt in the room. Per family, pts appetite has declined since admission. Average PO intake of 30%. No complains of nausea or vomiting. Pt denied any chewing or swallowing difficulty. Per RN, will order Megace to help with his appetite. Family was open to oral nutrition supplements. Communicated plan of care with RN and family. Will continue to monitor and follow. (12/20/19) Pt is a 79 year old male admitted with septic right knee. Pt was sleeping at time of visit; therefore, unable to obtain nutrition history from pt. It is recorded that pt has been consuming 25-50% of meals during admission. Pt had weights ranging from 143-152 lbs per previous admission in May 2019; therefore, no weight loss is evident per weight history. Recommend Nepro BID for added nutrition. Will continue to monitor. Principal Problems/Diagnoses: septic right knee PMH: diabetes, peripheral vascular disease, cellulitis, gout, HTN, anemia I/O: reviewed GI: last recorded BM 12/24 Skin: no pressure ulcers or wounds Labs: (12/25/19) BUN 60 H, Creatinine 5.87 H, Ca 7.6 L (12/20/19) Na 136, BUN 53, Cr 4.77 Meds: Carafate, Phoslo, Protonix, Nephro-Nilay Ht: 66 inches Wt: 156 lbs - ; 152lb 12/24 BMI: 25.2 kg/m2 IBW: 142 lbs Malnutrition Evaluation (12/20/19) The patient does not meet criteria for a specified degree of malnutrition at this time. Will re-evaluate at follow-up as appropriate. Energy intake: < or = 50% of estimated energy requirements for >5 days Weight loss: No weight loss is evident per weight history Fat loss: unable to evaluate Muscle loss: unable to evaluate Supporting Evidence: Fluid accumulation: unable to evaluate Functional Status: unable to evaluate Nutrition Prescription (Diet Order): Renal/diabetic 1800kcal diet Estimated Nutritional Needs: 7279-0552 calories/day (30-35 kcal/kg CBW) 85-106 g protein/day (1.2-1.5 g pro/kg CBW) Diet Adequacy: Not meeting calorie needs, Not meeting protein needs Tolerance: Tolerating PO Diet Education Needs Assessment: Not appropriate at this time. Nutrition Care Level: moderate Nutrition Diagnosis: Inadequate energy intake related to decreased ability to consume sufficient energy as evidenced 25-50% meal intake. Goal: Patient will meet 75-100% of estimated needs by follow up Progress: Not progressing Interventions: -mineral, carbohydrate - modified diet, Commercial beverage Monitoring/Evaluation: -Total energy intake, Total protein intake, Modified diet, Liquid supplement, Weight change Signed by Wilma Huffman, , RD, LD
[2019-12-25] MEDS: MESALAMINE 400 MG CAP PO SCH (16:45)
--- NOTE | 2019-12-25 19:15 | NUR ---
patient received awake, lying quietly in bed. respirations even and unlabored. vss. no c/o pain noted. patient turneed and repositioned for comfort. pm assessment complete. call flynn placed within reach. patient instructed to call for assistance when needed. bed alarm remains on for patient safety.
[2019-12-25] MEDS ORDERED: PROPOFOL IV EMULSION 10 MG/ML 20 ML VIAL ONE (19:30)
[2019-12-25] MEDS: IBRUTINIB 140 MG PO SCH (20:47)
[2019-12-26] VITALS (8 sets, daily range): BP systolic 93–150; BP diastolic 45–86
[2019-12-26] MEDS: HYDROCODONE/APAP 5MG-325MG TAB PO PRN (00:17)
--- NOTE | 2019-12-26 00:17 | NUR ---
patient medicated with norco 5/325mg po for c/o right knee pain 01/09 at this time per patients request. patient repositioned for comfort. patient instructed to call for assistance when needed.
[2019-12-26 05:44] LABS: BASOPHILS % 0.4 % (0.0-1.0); EOSINOPHILS # (AUTO) 0.1 (0.0-0.4); EOSINOPHILS % 0.8 % (0.0-6.0); HEMATOCRIT 28.2 % (38.2-49.6); HEMOGLOBIN 9.1 g/dL (14.0-18.0); LYMPHOCYTES # (AUTO) 2.1 (1.0-3.2); LYMPHOCYTES % 24.7 % (18.0-39.1); MEAN CORPUSCULAR HEMOGLOBIN 29.5 pg (28-32); MEAN CORPUSCULAR HGB CONC 32.3 g/dL (31-35); MEAN CORPUSCULAR VOLUME 91.6 fL (81-99); MONOCYTES # (AUTO) 0.9 (0.2-0.8); MONOCYTES % 10.4 % (4.4-11.3); NEUTROPHILS # (AUTO) 5.4 (2.1-6.9); NEUTROPHILS % 63.1 % (38.7-80.0); PLATELET COUNT 185 x10e3/uL (140-360); RED BLOOD COUNT 3.08 x10e6/uL (4.3-5.7); RED CELL DISTRIBUTION WIDTH 14.3 % (11.7-14.4)
[2019-12-26 05:56] LABS: PHOSPHORUS 3.8 MG/DL (2.3-4.7)
[2019-12-26] MEDS: INSULIN REGULAR, HUMAN 100 UNIT/1 ML 3ML VIAL SQ SCH ×4 (07:30→21:50)
[2019-12-26] MEDS: CALCIUM ACETATE 667 MG GELCAP PO SCH ×3 (07:59→17:00)
[2019-12-26] MEDS: PANTOPRAZOLE 40 MG 10ML VIAL IV SCH ×2 (07:59→17:00)
[2019-12-26] MEDS: SUCRALFATE 1 GM/10 ML SUSP NG SCH ×4 (07:59→21:42)
[2019-12-26] MEDS: FOLIC ACID/CYANOCOB/PYRIDOXINE TAB PO SCH (08:00)
[2019-12-26] MEDS: LIDOCAINE 4% PATCH TP SCH (08:00)
[2019-12-26] MEDS: ALLOPURINOL 100 MG TAB PO SCH (08:00)
[2019-12-26] MEDS: MEGACE 400MG/ 10ML CUP PO SCH (08:18)
[2019-12-26] MEDS: MESALAMINE 400 MG CAP PO SCH ×2 (08:18→17:00)
[2019-12-26] MEDS: CHOLESTYRAMINE 4 GM PACKET PO SCH ×2 (09:42→17:51)
--- NOTE | 2019-12-26 11:00 | NUR ---
informed Dr. De La O, patient with episode of elevated HR >200, orders received and entered.
--- NOTE | 2019-12-26 11:11 | NUR ---
Dr. Hernandez informed of dedrick molina MD at bedside and ok given to administer Metoprolol 5 mg IVP.
[2019-12-26] MEDS ORDERED: METOPROLOL TARTRATE INJ 1 MG/ML VIAL IV ONE (11:30)
--- NOTE | 2019-12-26 11:39 | Progress Note ---
DATE: SUBJECTIVE: The patient is seen and evaluated, available labs and notes reviewed. Dialysis in the room. Discussed with the nurse. Discussed with Dr. Becerra. REVIEW OF SYSTEMS: No nausea, vomiting, fever, chills, chest pain, shortness of breath, headache, rash, or dysuria. The patient is still complaining of right knee pain. MEDICATIONS: Reviewed. From Infectious Disease point of view, the patient is on cefazolin. MICROBIOLOGY: No new microbiology studies available. LABORATORY STUDIES: White count of 8.5, hemoglobin 9.1, and platelet 185. Sodium 141 yesterday, potassium was 5 today. Serology: Coronavirus PCR not detected on 12/13 and on 12/20. Clostridium difficile was negative on 12/19. IMAGING: No new radiology studies available. PHYSICAL EXAMINATION: VITAL SIGNS: Temperature 97.8, pulse is 91, respirations 18, and blood pressure 133/60. GENERAL: Alert and oriented, no acute distress. CV: S1-S2. CHEST: Equal expansion. Clear to auscultation. No acute distress. ABDOMEN: Soft, nontender. No distention. HEENT: Moist. No pallor. No JVD. EXTREMITIES: Right knee; seems to be decreased swelling of the right knee, no erythema, no drainage. Surgical site is sutured and seems to be dry. No exudate. ASSESSMENT AND PLAN: 1. Septic right knee. Culture showed methicillin-susceptible Staphylococcus aureus. The patient is on cefazolin. 2. End-stage renal disease, currently on dialysis. 3. Anemia-the patient was seen by GI, status post EGD and colonoscopy, status post resection of 5 cm polyp, pending workup. 4. Debility. 5. Pain. Discussed with the nurse. The patient gets [place] every 8 hours. Pain seems to be controlled well. Continue to monitor the patient clinically. Follow up with the labs. Discussed with Dr. Becerra in detail. Please refer to chart for more information. Dictated by Julian Partida PA-C (Al) Nabila Becerra MD /MODL /[id number]
[2019-12-26 12:30] LABS: ANION GAP 14.1 mmol/L (8-16); CALCIUM 7.6 mg/dL (8.4-10.2); CREATININE, SERUM 2.42 mg/dL (0.72-1.25); POTASSIUM 3.1 mmol/L (3.5-5.1)
--- NOTE | 2019-12-26 12:34 | Consultation ---
DATE OF CONSULTATION: Cardiology Consultation REASON FOR CONSULTATION: Atrial fibrillation. HISTORY OF PRESENT ILLNESS: This is a 79-year-old man with a history of end-stage renal disease, CLL, and gout, who is currently being admitted for GI bleed and infected knee. On dialysis today, he developed atrial fibrillation with rapid ventricular response. He denies any chest pain, palpitations, or shortness of breath. The patient is fairly lethargic. He cannot provide me the exact details of his past medical history or his presenting symptoms. REVIEW OF SYSTEMS: Unable to be obtained due to confusion. PAST MEDICAL HISTORY: As stated above. PAST SURGICAL HISTORY: None recent. PAST FAMILY HISTORY: Noncontributory to current illness. ALLERGIES: NO KNOWN DRUG ALLERGIES. MEDICATIONS: See medication reconciliation form. SOCIAL HISTORY: No illicit drug, alcohol, or tobacco use. PHYSICAL EXAMINATION: VITAL SIGNS: Temperature is 97.8, heart rate is 91, respirations are 18, blood pressure is 133/60, and oxygen saturation 99% on room air. GENERAL: Well-appearing, no apparent distress, elderly. HEAD: Normocephalic and atraumatic. EYES: Extraocular movements are intact. Conjunctivae are clear. NECK: No JVD. No bruits. CARDIOVASCULAR: Irregularly irregular. Tachycardic. No significant murmurs. LUNGS: Diminished breath sounds at the bases. ABDOMEN: Soft, nontender, and nondistended. EXTREMITIES: Left upper extremity swelling. NEUROLOGIC: The patient is lethargic and not alert or oriented. TELEMETRY: Monitoring revealed atrial fibrillation with rapid ventricular response. LABORATORY DATA: Reviewed. Hemoglobin is 9.1. Potassium is five and phosphorus is 3.8. IMPRESSION: 1. Atrial fibrillation with rapid ventricular response:, paroxysmal. 2. Hypertension. 3. End-stage renal disease, on hemodialysis. 4. Gastrointestinal bleed. 5. Infected need. RECOMMENDATIONS: We will check a 2D echocardiogram. We will also check all electrolyte levels and TSH. Atrial fibrillation likely related to electrolyte and fluid shifts with hemodialysis. Continue all the treatment for infection and GI bleed per primary team. Alfredo Hernandez DO BM/MODL /[id number]
[2019-12-26 12:46] LABS: MAGNESIUM 1.8 MG/DL (1.3-2.1)
[2019-12-26] MEDS: CEFAZOLIN SOD 1 GM/NS 50ML 150 ML IV SCH (12:46)
[2019-12-26] MEDS: EPOETIN ALFA-EPBX 10,000 UNIT/ML VIAL SC SCH (12:46)
[2019-12-26] MEDS ORDERED: AMIODARONE HCL 150 MG in DEXTROSE 5% 100ML 100 ML IV STA (12:59)
[2019-12-26] MEDS ORDERED: AMIODARONE HCL 900 MG in DEXTROSE 5 % 500ML BOTTLE 482 ML IV SCH (13:00)
--- NOTE | 2019-12-26 15:33 | NUR ---
informed Dr. Hernandez that patients heart rate converted to NSR in the 70"s, orders received to continue drip and stop drip if heart drops below 50. will continue to monitor.
--- NOTE | 2019-12-26 17:03 | NUR ---
informed dr ana laura kraft level 3.1, no new orders at this time
[2019-12-26 20:31] LABS: THYROID STIMULATING HORMONE 3.27 uIU/mL (0.350-4.940)
[2019-12-26] MEDS: IBRUTINIB 140 MG PO SCH (21:42)
[2019-12-27] VITALS (9 sets, daily range): BP systolic 111–126; BP diastolic 44–56
[2019-12-27 06:14] LABS: BASOPHILS % 0.3 % (0.0-1.0); EOSINOPHILS # (AUTO) 0.1 (0.0-0.4); EOSINOPHILS % 0.7 % (0.0-6.0); HEMATOCRIT 28.4 % (38.2-49.6); HEMOGLOBIN 9.2 g/dL (14.0-18.0); LYMPHOCYTES # (AUTO) 2.1 (1.0-3.2); MEAN CORPUSCULAR HEMOGLOBIN 30.5 pg (28-32); MEAN CORPUSCULAR HGB CONC 32.4 g/dL (31-35); MONOCYTES # (AUTO) 0.9 (0.2-0.8); MONOCYTES % 8.5 % (4.4-11.3); NEUTROPHILS # (AUTO) 6.8 (2.1-6.9); NEUTROPHILS % 68.7 % (38.7-80.0); PLATELET COUNT 198 x10e3/uL (140-360); RED BLOOD COUNT 3.02 x10e6/uL (4.3-5.7); RED CELL DISTRIBUTION WIDTH 14.2 % (11.7-14.4)
[2019-12-27 06:45] LABS: ALBUMIN 1.3 g/dL (3.5-5.0); ALBUMIN/GLOBULIN RATIO 0.3 (0.8-2.0); ALKALINE PHOSPHATASE 62 IU/L (40-150); ANION GAP 15.5 mmol/L (8-16); BLOOD UREA NITROGEN 37 mg/dL (7-26); BUN/CREATININE RATIO 8 (6-25); CALCIUM 7.6 mg/dL (8.4-10.2); CARBON DIOXIDE 25 mmol/L (22-29); CHLORIDE 98 mmol/L (98-107); CREATININE, SERUM 4.93 mg/dL (0.72-1.25); EST GLOMERULAR FILTRATION RATE 11 ML/MIN (60-); GLUCOSE 86 mg/dL (74-118); MAGNESIUM 1.8 MG/DL (1.3-2.1); POTASSIUM 4.5 mmol/L (3.5-5.1); SODIUM 134 mmol/L (136-145)
[2019-12-27 06:53] LABS: ALANINE AMINOTRANSFERASE < 6 IU/L (0-55)
[2019-12-27] MEDS: INSULIN REGULAR, HUMAN 100 UNIT/1 ML 3ML VIAL SQ SCH ×4 (07:30→20:40)
[2019-12-27] MEDS: SUCRALFATE 1 GM/10 ML SUSP NG SCH ×5 (08:30→20:39)
[2019-12-27] MEDS: CALCIUM ACETATE 667 MG GELCAP PO SCH ×3 (08:30→18:30)
[2019-12-27] MEDS: PANTOPRAZOLE 40 MG 10ML VIAL IV SCH ×2 (08:50→18:29)
--- NOTE | 2019-12-27 09:54 | Progress Note ---
DATE: SUBJECTIVE: The patient is seen and evaluated, available labs and notes reviewed. Discussed with staff. No new events overnight. REVIEW OF SYSTEMS: Pain now, right knee is controlled. No nausea, vomiting, fever, chills, chest pain, shortness of breath, headache, rash, or cough. OBJECTIVE: VITAL SIGNS: Temperature 97.6, pulse is 70, respiration 15, and blood pressure 126/49. GENERAL: Alert and oriented, no acute distress. CV: S1, S2. CHEST: Equal expansion. Clear to auscultation. No acute distress. ABDOMEN: Soft, nontender. No distention. HEENT: Moist. No pallor. No JVD. EXTREMITIES: Right knee, no obvious acute finding. MEDICATIONS: Reviewed. As far as Infectious Disease point of view, the patient is on cefazolin. LABORATORY STUDIES: White count of 9.96, hemoglobin 9.2, platelet 198. Sodium 134, potassium 4.5, creatinine 4.93. The patient is on dialysis. Serology, no new serology available. Microbiology, no new microbiology studies available. ASSESSMENT AND PLAN: 1. Septic right knee, status post incision and drainage with culture positive for methicillin-sensitive Staphylococcus aureus, continue with cefazolin and monitor. 2. Atrial fibrillation-Cardiology consulted. Follow with a 2D echo. 3. End-stage renal disease-continue with dialysis. 4. Debility-multifactorial. Continue with PT/OT. 5. Continue cefazolin. Monitor the patient clinically follow with the labs. Further management of this patient is based on daily finding on laboratory and physical examination. Refer to chart please, for more information. Dictated by Julian Partida PA-C (Al) Nabila Becerra MD /MODL /[id number]
[2019-12-27] MEDS: MEGACE 400MG/ 10ML CUP PO SCH (10:05)
[2019-12-27] MEDS: CHOLESTYRAMINE 4 GM PACKET PO SCH ×2 (10:07→18:30)
[2019-12-27] MEDS: MESALAMINE 400 MG CAP PO SCH ×2 (10:07→18:29)
[2019-12-27] MEDS: LIDOCAINE 4% PATCH TP SCH (10:08)
[2019-12-27] MEDS: ALLOPURINOL 100 MG TAB PO SCH (10:08)
[2019-12-27] MEDS: FOLIC ACID/CYANOCOB/PYRIDOXINE TAB PO SCH (10:08)
[2019-12-27] MEDS: HYDROCODONE/APAP 5MG-325MG TAB PO PRN (10:54)
--- NOTE | 2019-12-27 14:00 | NUR ---
CALLED DR. HAWKINS TO OBTAIN DISCHARGE ORDERS RECEIVED ORDERS TO KEEP PATIENT OVERNIGHT FOR OBSERVATION.
--- NOTE | 2019-12-27 14:15 | Progress Note ---
DATE: SUBJECTIVE: The patient found sleeping comfortably. No events. No chest pain or shortness of breath. No palpitations. OBJECTIVE: VITAL SIGNS: Temperature is 97.6, heart rate is 75, respirations are 17, blood pressure is 124/52, and oxygen saturation is 100% on room air. GENERAL: Well-appearing elderly man, lying comfortably in bed. CARDIOVASCULAR: Regular rate and rhythm. LUNGS: Clear to auscultation. ABDOMEN: Soft, nontender, nondistended. EXTREMITIES: No edema. LABORATORY DATA: Reviewed, hemoglobin is 9.2. Potassium today is 4.5. Potassium yesterday was 3.1, magnesium 1.8, and TSH 3.2. Telemetry monitoring overnight showed normal sinus rhythm. IMPRESSION: 1. Paroxysmal atrial fibrillation. 2. Hypokalemia. 3. End-stage renal disease on hemodialysis. 4. Hypertension. 5. GI bleed. 6. Infected knee. RECOMMENDATIONS: His 2D echocardiogram was checked and showed preserved left ventricular systolic function. I presume his atrial fibrillation was due to hypokalemia yesterday. Ensure correct electrolyte levels. We will start p.o. amiodarone. No anticoagulation at this point in time, given GI bleed. DO IHSAN Ruiz/MODL /[id number]
[2019-12-27] MEDS: AMIODARONE HCL 200 MG TAB PO SCH (18:29)
[2019-12-27] MEDS: ACETAMINOPHEN 325 MG TAB PO PRN (18:33)
--- NOTE | 2019-12-27 19:28 | NUR ---
Received report from AM nurse. Walking rounds completed.
[2019-12-27] MEDS: CEFAZOLIN SOD 1 GM/NS 50ML 150 ML IV SCH (20:00)
[2019-12-27] MEDS: IBRUTINIB 140 MG PO SCH (20:40)
--- NOTE | 2019-12-27 22:54 | NUR ---
Patient in bed in supine position. Denies pain at this time. Has a very small BM at beginning of shift. AV fiscular to left arm with thrill and brue. BS at 145 2 units of insulin given to right upper arm. Patient tolerated well. HR with in 70-80. Temp and BP WNL. Sats at 98-100%. Continue monitor.
[2019-12-28] VITALS (8 sets, daily range): BP systolic 114–145; BP diastolic 56–77
--- NOTE | 2019-12-28 05:58 | Progress Note ---
DATE: SUBJECTIVE: The patient seemed to do well overnight. No new complaints. He says pain in his knee is doing better. OBJECTIVE: VITAL SIGNS: Temperature 97.8, pulse 77, blood pressure 132/59, saturations 100% on room air. GENERAL: No apparent distress, lying in bed. CARDIOVASCULAR: Regular rate and rhythm. LUNGS: Clear to auscultation bilaterally. ABDOMEN: Good bowel sounds. Soft, nontender. EXTREMITIES: No clubbing or cyanosis. Right knee has significantly improved from admission where he has cyst, mild warmth and minimal swelling and he has range of motion. NEUROLOGIC: Moves all extremities x4. ASSESSMENT/PLAN: 1. Sepsis secondary to right knee infection. We will continue with antibiotics. 2. End-stage renal disease. Continue with dialysis. 3. Atrial fibrillation with rapid ventricular response. Still appears to be in normal sinus rhythm, so continue with current care, most likely secondary to low potassium. 4. Anemia secondary to a GI bleed. We will continue with current care and monitoring. If his CBC is still stable this morning, the patient can then be transferred to a [facility] facility. 5. Diabetes. Continue with current care monitoring. 6. Leukocytosis, resolved. Please see hospital chart for full details. MD MARIA D Best/ANTON /[id number]
[2019-12-28 07:22] LABS: BASOPHILS # (AUTO) 0.1 (0.0-0.1); BASOPHILS % 0.6 % (0.0-1.0); EOSINOPHILS # (AUTO) 0.1 (0.0-0.4); HEMATOCRIT 33.5 % (38.2-49.6); HEMOGLOBIN 10.7 g/dL (14.0-18.0); LYMPHOCYTES # (AUTO) 3.2 (1.0-3.2); LYMPHOCYTES % 28.7 % (18.0-39.1); MEAN CORPUSCULAR HEMOGLOBIN 29.5 pg (28-32); MEAN CORPUSCULAR HGB CONC 31.9 g/dL (31-35); MEAN CORPUSCULAR VOLUME 92.3 fL (81-99); MONOCYTES # (AUTO) 0.9 (0.2-0.8); MONOCYTES % 8.5 % (4.4-11.3); NEUTROPHILS # (AUTO) 6.7 (2.1-6.9); NEUTROPHILS % 60.6 % (38.7-80.0); PLATELET COUNT 244 x10e3/uL (140-360); RED BLOOD COUNT 3.63 x10e6/uL (4.3-5.7); RED CELL DISTRIBUTION WIDTH 13.5 % (11.7-14.4)
[2019-12-28] MEDS: INSULIN REGULAR, HUMAN 100 UNIT/1 ML 3ML VIAL SQ SCH ×3 (07:30→16:30)
[2019-12-28 07:43] LABS: ALANINE AMINOTRANSFERASE < 6 IU/L (0-55); ALBUMIN 1.4 g/dL (3.5-5.0); ALBUMIN/GLOBULIN RATIO 0.3 (0.8-2.0); ALKALINE PHOSPHATASE 65 IU/L (40-150); BLOOD UREA NITROGEN 60 mg/dL (7-26); BUN/CREATININE RATIO 9 (6-25); CALCIUM 8.4 mg/dL (8.4-10.2); CARBON DIOXIDE 24 mmol/L (22-29); CHLORIDE 96 mmol/L (98-107); CREATININE, SERUM 6.43 mg/dL (0.72-1.25); EST GLOMERULAR FILTRATION RATE 8 ML/MIN (60-); GLUCOSE 80 mg/dL (74-118); SODIUM 131 mmol/L (136-145)
[2019-12-28] MEDS: CALCIUM ACETATE 667 MG GELCAP PO SCH ×3 (08:03→16:45)
[2019-12-28] MEDS: SUCRALFATE 1 GM/10 ML SUSP NG SCH ×3 (08:03→16:45)
[2019-12-28] MEDS: MEGACE 400MG/ 10ML CUP PO SCH (08:58)
[2019-12-28] MEDS: AMIODARONE HCL 200 MG TAB PO SCH ×2 (08:58→16:48)
[2019-12-28] MEDS: PANTOPRAZOLE 40 MG 10ML VIAL IV SCH (08:58)
[2019-12-28] MEDS: MESALAMINE 400 MG CAP PO SCH ×3 (08:58→16:58)
[2019-12-28] MEDS: CHOLESTYRAMINE 4 GM PACKET PO SCH ×2 (08:59→16:51)
[2019-12-28] MEDS: ALLOPURINOL 100 MG TAB PO SCH (08:59)
[2019-12-28] MEDS: FOLIC ACID/CYANOCOB/PYRIDOXINE TAB PO SCH (08:59)
[2019-12-28] MEDS: LIDOCAINE 4% PATCH TP SCH (09:58)
--- NOTE | 2019-12-28 10:19 | Progress Note ---
DATE: SUBJECTIVE: The patient is seen and evaluated. Available labs and notes reviewed. Discussed with Dr. Becerra in detail. Discussed with the nurse. No new events overnight. REVIEW OF SYSTEMS: No nausea, vomiting, fever, chills, chest pain, shortness of breath, headache, rash, dysuria, still with a limited range of motion on the right knee and pain and discomfort with movement. OBJECTIVE: VITAL SIGNS: Temperature 97.8, pulse is 77, respirations 18, and blood pressure 132/59. GENERAL: Alert and oriented, no acute distress. CV: S1 and S2. CHEST: Equal expansion. Clear to auscultation. No acute distress. HEENT: Moist. No pallor. No JVD. EXTREMITIES: Right knee remains with mild swelling, no erythema and no significant tenderness on physical exam. Limited range of motion with painful range of motion. MEDICATIONS: Medication list reviewed. The patient is on cefazolin with each dialysis. LABORATORY STUDIES: White count 11.11, went up from 9.96, hemoglobin 10.7, platelet 244. Sodium 131, potassium 5, creatinine 6.43. SEROLOGY: No new serology studies available. MICROBIOLOGY: No new microbiology studies available. RADIOLOGY: No new radiology. ASSESSMENT AND PLAN: 1. Right septic knee, culture methicillin-susceptible Staphylococcus aureus, status post I and D. continue with cefazolin. 2. Atrial fibrillation-status post echo showing preserved left ventricle systolic function per Cardiology note. Electrolyte abnormalities per others. 3. End-stage renal disease on dialysis, patient did then get dialyzed last time, which was decided by Renal physician. 4. Debility-multifactorial, continue PT/OT. 5. Discharge planning is for detention facility. 6. Continue to monitor the patient clinically follow with the labs. 7. Overall guarded prognosis. Please refer to chart for more information. Dictated by Julian Partida PA-C (Al) Nabila Becerra MD /MODL /[id number]
--- NOTE | 2019-12-28 13:07 | NUR ---
FAXED UPDATES TO FACILITY PER REQUEST
[2019-12-28] MEDS: EPOETIN ALFA-EPBX 10,000 UNIT/ML VIAL SC SCH (13:18)
[2019-12-28] MEDS: HYDROCODONE/APAP 5MG-325MG TAB PO PRN (16:50)
--- NOTE | 2019-12-28 17:20 | NUR ---
patient requested his 1700 Protonix because he reported having acid reflux Protonix given early at patient's request.
--- NOTE | 2019-12-28 17:26 | NUR ---
Patient discharged to [facility] patient [facility] with telemetry.
[2019-12-28] MEDS ORDERED: PANTOPRAZOLE SOD 40 MG TABEC PO SCH (21:00)
--- NOTE | 2019-12-30 10:49 | Discharge Summary ---
DISCHARGE DIAGNOSES: 1. Septic right knee with Staph aureus, methicillin sensitive. 2. End-stage renal disease. 3. Gastrointestinal bleed. 4. Anemia. 5. Diabetes. 6. Hypertension. 7. History of leukemia. HISTORY OF PRESENT ILLNESS AND HOSPITAL COURSE: The patient is a gentleman, who presented with failed outpatient therapy for right knee pain and swelling where he was found to have evidence of septic right knee that on surgical evaluation grew out Staph aureus, methicillin sensitive, so he was placed on IV antibiotics seen by Infectious Disease where he had slow but steady improvement of his knee pain, but during the hospitalization he had some complications with a GI bleed with melenic stools that did require transfusion therapy and the patient had an upper endoscopy and lower endoscopy. Please see the reports for full details that showed some polyps that were removed. Upper endoscopy did show ulcer without any active evidence of bleeding. He did have GI bleeding scan done with nuclear medicine that did show small evidence of bleeding around the ileocecal valve, but his hemoglobin remained stable after his transfusion therapy and actually improved prior to discharge. There are no signs of active bleeding at this time. Surgical exploration was not necessary, but may be necessary in the future and due to his significant comorbidities and overall weakness the patient was then [facility] under my care for continue care where he will be on Ancef 2 g IV with each dialysis dose for two more weeks to finish up his septic knee treatment. Please see hospital chart for full details. MD MARIA D Best/ANTON /[id number]
== END 2019-12-28 17:36 | DRG 485 ==
LOC: OR 13:21 → IMCU 15:29 → MED/SURG2 12-15 16:15 → IMCU 12-23 20:55
PROVIDERS: ADMIT Internal Medicine; ATTEND Internal Medicine
PROC: 0SBC4ZZ Excision of Right Knee Joint, Percutaneous Endoscopic Approach (ICD-10-PCS; 2019-12-14)
PROC: 5A1D70Z Performance of Urinary Filtration, Intermittent, Less than 6 Hours Per Day (ICD-10-PCS; principal; 2019-12-15)
PROC: 5A1D70Z Performance of Urinary Filtration, Intermittent, Less than 6 Hours Per Day (ICD-10-PCS; 2019-12-18)
PROC: 5A1D70Z Performance of Urinary Filtration, Intermittent, Less than 6 Hours Per Day (ICD-10-PCS; 2019-12-19)
PROC: 5A1D70Z Performance of Urinary Filtration, Intermittent, Less than 6 Hours Per Day (ICD-10-PCS; 2019-12-20)
PROC: 5A1D70Z Performance of Urinary Filtration, Intermittent, Less than 6 Hours Per Day (ICD-10-PCS; 2019-12-21)
PROC: 5A1D70Z Performance of Urinary Filtration, Intermittent, Less than 6 Hours Per Day (ICD-10-PCS; 2019-12-23)
PROC: 0DBK8ZX Excision of Ascending Colon, Via Natural or Artificial Opening Endoscopic, Diagnostic (ICD-10-PCS; 2019-12-25)
PROC: 0DBP8ZX Excision of Rectum, Via Natural or Artificial Opening Endoscopic, Diagnostic (ICD-10-PCS; 2019-12-25)
PROC: 0DBH8ZX Excision of Cecum, Via Natural or Artificial Opening Endoscopic, Diagnostic (ICD-10-PCS; 2019-12-25)
PROC: 0DJ08ZZ Inspection of Upper Intestinal Tract, Via Natural or Artificial Opening Endoscopic (ICD-10-PCS; 2019-12-25)
PROC: 5A1D70Z Performance of Urinary Filtration, Intermittent, Less than 6 Hours Per Day (ICD-10-PCS; 2019-12-26)
DX: M00.061 Staphylococcal arthritis, right knee (principal); N18.6 End stage renal disease; K22.11 Ulcer of esophagus with bleeding; K25.4 Chronic or unspecified gastric ulcer with hemorrhage; I13.2 Hypertensive heart and chronic kidney disease with heart failure and with stage 5 chronic kidney disease, or end stage renal disease; K63.3 Ulcer of intestine; D62 Acute posthemorrhagic anemia; B95.61 Methicillin susceptible Staphylococcus aureus infection as the cause of diseases classified elsewhere; E11.22 Type 2 diabetes mellitus with diabetic chronic kidney disease; M10.9 Gout, unspecified; M17.11 Unilateral primary osteoarthritis, right knee; M65.161 Other infective (teno)synovitis, right knee; E11.51 Type 2 diabetes mellitus with diabetic peripheral angiopathy without gangrene; I25.10 Atherosclerotic heart disease of native coronary artery without angina pectoris; I50.9 Heart failure, unspecified; E11.42 Type 2 diabetes mellitus with diabetic polyneuropathy; E87.5 Hyperkalemia; I48.0 Paroxysmal atrial fibrillation; D12.8 Benign neoplasm of rectum; K26.9 Duodenal ulcer, unspecified as acute or chronic, without hemorrhage or perforation; R19.7 Diarrhea, unspecified; R53.81 Other malaise; Z85.6 Personal history of leukemia; Z99.2 Dependence on renal dialysis; Z82.49 Family history of ischemic heart disease and other diseases of the circulatory system; E87.6 Hypokalemia
CPT/HCPCS: 36415; 43235; 43239; 45380; 45385; 71045; 78278; 80048; 80053; 82270; 82947; 82948; 83735; 84100; 84132; 84443; 85014; 85018; 85025; 85610; 86705; 86706; 86850; 86900; 86920; 87071; 87075; 87186; 87205; 87340; 87493; 87635; 88305; 88312; 89051; 90962; 93005; 93306; 96372; 97139; 99251; A9512; J0610; J0690; J1817; J1885; J2001; J2405; J3370; J7030; J7040; J7050; J7512; J7799; P9016; Q0162

== ENCOUNTER 2019-12-31 16:36 | Inpatient (IN) | payer MEDICARE, OTHER ==
[~2019-12-31] VITALS: Ht 167.6 cm; Wt 68.9 kg
[~2019-12-31 16:36] MED LIST changes: +NORVASC2.5 MG PO; +PREDNISONE PO; +PREDNISONE5 MG PO; +TYLENOL # 31 EA PO
--- OUTSIDE RECORDS SUMMARY | 2019-12-31 16:52 | XMS REPORT | Clinical Summary ---
Author Author [facility] Address Unknown Phone Unavailable Care Team Providers Care Spiral Tube Winder Helper Name Role Phone Kei Cunha PCP Allergies [...] Not on file Results Not on fileafter 12/30/2018 Insurance Payer Benefit Subscriber ID Type Phone Address Plan / Group [employer] CIGNA xxxxxxxxxxx [facility] [employer] Contracted ALL [id number] [facility] [id number] amily (Home) [employer] [facility] [place] [phone] Advance Directives For more information, please contact: [facility] [address] [place] [address] Date Inactivated Comments Code Status Date Activated 12/31/2017 9:35 PM Full Code 12/31/2017 11:29 AM This code status was determined by: Patient
--- OUTSIDE RECORDS SUMMARY | 2019-12-31 16:52 | XMS REPORT ---
Author Author [facility] t Organization [facility] Address 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 Problems Condition Name Condition Details Condition Category Status Onset Date Resolution Date Last Treatment Date Treating Clinician Comments Source Gastrointestinal hemorrhage GI bleed Problem Active 2014-09-23 00:00:00 [facility] Acute renal failure superimposed on chronic kidney dis ease Acute on chronic renal failure Problem Active [facility] Pruritus Pruritus Problem Active [facility] Uremia Uremia Problem Active [facility] Angioedema Angio-edema Problem Active [facility] End stage renal failure on dialysis ESRD on dialysis Problem Active [facility] Conjunctivitis Conjunctivitis Problem Active [facility] Cellulitis of right orbital region Orbital cellulitis on right Proble m Active [facility] Effusion of right knee Problem Active [facility] Left shoulder pain Problem Active [facility] Hyperglycemia Problem Active [facility] Allergies, Adverse Reactions, Alerts This patient has no known allergies or adverse reactions. Social History Social Habit Start Date Stop Date Quantity Comments Source Sex Assigned At 1940 00:00[birth year]00 1940 00:00:[address] [facility] Medications Ordered Medication Name Filled Medication Name Start Date Stop Da te Current Medication? Ordering Clinician Indication Dosage Frequency Signature (SIG) Comments Components Source Allopurinol Allopurinol Yes [address] [facility] Calcium Acetate Calcium Acetate Yes 2 Three Ti mes A Day [facility] Folic Acid/Vitamin B Comp W-C (Dialyvite 800 Tablet) 0 .8 Mg TABLET Folic Acid/Vitamin B Comp W-C (Dialyvite 800 Tablet) 0.8 Mg TABLET Yes 1 Daily [facility] Ibrutinib (Imbruvica) 140 Mg CAPSULE Ibrutinib (Imbruvica) 140 Mg C APSULE Yes [address] [facility] Icatibant Acetate (Firazyr) 30 Mg/3 Ml DISP.SYRIN Icat ibant Acetate (Firazyr) 30 Mg/3 Ml DISP.SYRIN Yes [address] [facility] Prednisone Prednisone 2019-05-20 00:00:[address] [facility] Tamsulosin Hcl (Flomax*) 0.4 Mg CAP Tamsulosin Hcl (Flomax*) 0.4 Mg CAP 2019-05-20 00:00:[address] [facility] Warfarin Sodium (Coumadin) 1 Mg TABLET Warfarin Sodium (Coumadin ) 1 Mg TABLET 2017-08-13 00:00:00 [address] [facility] Metronidazole (Flagyl) 500 Mg TABLET Metronidazole (Flagyl) 500 Mg TABLET 2014-09-23 00:00:00 No [address] [facility] Vital Signs Vital Name Observation Time Observation Value Comments Source Weight 2019-12-13 13:36:00 143 [lb_av] [facility] BMI (Body Mass Index) 2019-12-13 13:36:00 23.1 kg/m2 [facility] Weight 2019-12-02 19:46:00 143 [lb_av] [facility] BMI (Body Mass Index) 2019-12-02 19:46:00 23.1 kg/m2 [facility] Body Temperature 2019-05-30 15:52:00 95.9 [degF] [facility] Procedures Procedure Date / Time Performed Performing Clinician Stuart almendarez STRAPPING OF KNEE 2019-12-02 00:00:00 [facility] PERFORMANCE OF URINARY FILTRATION, <6 HRS/DAY 2019-05-29 00:00:[address] [facility] Computed tomography of orbits, sella tur cica, and posterior cranial fossa without contrast 2019-05-20 00:00:[address] [facility] Plan of Care Planned Activity Planned Date Details Comments Source Instructions Contusion [facility] Instructions Hyperglycemia [facility] Encounters Start Date/Time End Date/Time Encounter Type [facility] Encounter ID Source 2019-12-13 13:07:00 2019-12-13 16:33:00 [facility] [id number] [facility] 2019-12-02 19:35:00 2019-12-02 22:29:00 Departed Emergency Room [address] [facility] [id number] [facility] 2019-05-20 21:16:00 2019-05-30 17:15:00 Discharged Inpatient [address] [facility] [id number] [facility] 2019-01-03 06:53:00 2019-01-06 17:40:00 Discharged Inpatient 1 STEVEN HAWKINS [facility] [id number] [facility] 2019-01-02 10:47:00 2019-01-02 10:47:00 Registered Clinic 3 JORDYN COSME [facility] [id number] [facility] 2018-01-31 20:52:00 2018-02-01 00:11:00 Departed Emergency Room 1 TALIA BIRMINGHAM [facility] [id number] [facility] 2017-08-10 10:08:00 2017-08-13 16:56:00 Discharged Inpatient ER STEVEN HAWKINS [facility] [id number] [facility] Results Test Description Test Time Test Comments Results Result Comments Source G I BLEED 2019-12-24 15:31:00 [place] [address] Patient Name: CHARLOTTE MARTINEZ MR #: [id number] : 1940 Age/Sex: 79/M Req #: [id number] Adm Physician: STEVEN HAWKINS MD Ordered by: RAMYOND STAPLETON MD Report #: [id number] Location: [facility] Room/Bed: [place] [address] Procedure: [id number] NM/G I BLEED Exam Date: Exam Time: REPORT STATUS: Signed ADDENDUM #1 Results were given to Dr. Raymond Stapleton by phone at 3:45 pm on 12/24/2019. Signed by: Dr. Lilibeth Arellano M.D. on 12/24/2019 3:47 PM ORIGINAL REPORT Tagged-RBC GI Bleed Study Clinical information: 79-year-old male with miguel stewart. Discussion: The patient's own red blood cells were labeled with 25.8 mCi of technetium-99m pertechnetate using the in vitro method (UltraTag). Dynamic images of the abdomen were obtained through 60 minutes. Distribution of tracer activity initially appears physiologic throughout the abdomen. At 45 minutes into the study, a very small focus of tracer accumulation appears in the right mid abdomen laterally. It propagates only slightly in a curvilinear manner toward the midline. Impression: Very small GI bleed is identified in the right mid abdomen laterally. The bleed appears quite small and propagates only slightly. Suspect that it is in small bowel, possibly at the ileocecal junction. Signed by: Dr. Lilibeth Arellano M.D. on 12/24/2019 3:36 PM Dictated By: LILIBETH ARELLANO MD 1547 Transcribed By: HARRIS on 12/24/19 1536 COPY TO: RAYMOND STAPLETON MD CHEST SINGLE (PORTABLE) 2019-12-14 15:13:00 [place] [address] Patient Name: CHARLOTTE MARTINEZ MR #: [id number] : 1940 Age/Sex: 79/M Req #: [id number] Adm Physician: Ordered by: ROSIE CH MD Report #: [id number] Location: OR Room/Bed: Procedure: [id number] DX/CHEST SINGLE (PORTABLE) Exam Date: 12/14/19 Exam [...] MD KNEE RIGHT THREE VIEWS 2019-12-13 15:08:00 [facility] [address] [place] [address] Patient Name: CHARLOTTE MARTINEZ MR #: [id number] : 1940 Age/Sex: 79/M Req #: [id number] Adm Physician: Ordered by: TALIA BIRMINGHAM MD Report #: [id number] Location: ER Room/Bed: Procedure: [id number] DX/KNEE RIGHT THREE VIEWS Exam Date: 12/13/19 [...] 3:09 PM Dictated By: ROMANA HAWKINS MD 08 Transcribed By: HARRIS on 12/13/191508 COPY TO: TALIA BIRMINGHAM MD SHOULDER LEFT COMPLETE 2019-12-13 15:07:00 [facility] [address] [place] [address] Patient Name: CHARLOTTE MARTINEZ MR #: [id number] : 1940 Age/Sex: 79/M Req #: [id number] [facility] Physician: Ordered by: TALIA BIRMINGHAM MD Report #: [id number] Location: ER Room/Bed: Procedure: [id number] DX/SHOULDER LEFT COMPLETE Exam Date: 12/13/19 Exam [...] HAWKINS MD 07 Transcribed By: HARRIS on 12/13/191507 COPY TO: TALIA BIRMINGHAM MD Blood leukocytes automated count (number/volume) 2019-12-13 14:33:00 Test Item White Blood Count (test code = 6690-2) 12.73 4.8-10.8 [facility] erythrocytes automated count (number/volume)2019-12-13 14:33:00* Test Item Value Reference Range Interpretation Comments Red Blood Count (test code = 789-8) 2.45 4.3-5.7 [facility] CenterBlood hemoglobin measurement (moles/volume)2019-12-13 14:33:00* Test Item Value Reference Range Interpretation Comments Hemoglobin (test code = 95822-7) 7.6 14.0-18.0 [facility] CenterAutomated blood hematocrit (volume fraction)2019-12-13 14:33:00* Test Item Value Reference Range Interpretation Comments Hematocrit (test code = 4544-3) 23.5 38.2-49.6 [facility] CenterAutomated erythrocyte mean corpuscular fkoxka1324-76-13 14:33:00* Test Item Value Reference Range Interpretation Comments Mean Corpuscular Volume (test code = 787-2) 95.9 81-99 [facility] CenterAutomated erythrocyte mean corpuscular hemoglobin (mass per erythrocyte)2019-12-13 14:33:00* Test Item Value Reference Range Interpretation Comments Mean Corpuscular Hemoglobin (test code = 785-6) 31.0 28-32 [facility] erythrocyte mean corpuscular hemoglobin concentration measurement (mass/volume)2019-12-13 14:33:00* Test Item Value Reference Range Interpretation Comments Mean Corpuscular Hemoglobin Concent (test code = 786-4) 32.3 31-35 [facility] CenterRDW GtlMk-Eqe0935-87-13 14:33:00* Test Item Value Reference Range Interpretation Comments Red Cell Distribution Width (test code = 28436-3) 15.7 11.7 -14.4 [facility] platelet count (count/volume)2019-12-13 14:33:00* Test Item Value Reference Range Interpretation Comments Platelet Count (test code = 777-3) 155 140-360 [facility] CenterAuthighlands-cashiers hospitaled blood segmented neutrophil count as percentage of total pbxjydeyje7920-52-34 14:33:00* Test Item Value Reference Range Interpretation Comments Neutrophils (%) (Auto) (test code = 22173-0) 89.9 38.7-80.0 [facility] CenterAutomated blood lymphocyte count as percentage ot total mpgaryulww0014-10-53 14:33:00* Test Item Value Reference Range Interpretation Comments Lymphocytes (%) (Auto) (test code = 736-9) 5.3 18.0-39.1 [facility] CenterAutomated blood monocyte count as percentage of total bptppynrlm4256-41-36 14:33:00* Test Item Value Reference Range Interpretation Comments Monocytes (%) (Auto) (test code = 5905-5) 3.1 4.4-11.3 [facility] CenterAutomated blood eosinophil count as percentage of total rxkoxlpuiu9002-93-56 14:33:00* Test Item Value Reference Range Interpretation Comments Eosinophils (%) (Auto) (test code = 713-8) 0.2 0.0-6.0 [facility] CenterAutomated blood basophil count as percentage of total ugrnwtiqow7757-86-24 14:33:00* Test Item Value Reference Range Interpretation Comments Basophils (%) (Auto) (test code = 706-2) 0.2 0.0-1.0 [facility] CenterFluoroscopic procedure less than one hour dunvsgqo8312-15-29 14:33:00* Test Item Value Reference Range Interpretation Comments IM GRANULOCYTES % (test code = IM GRANULOCYTES %) 1.3 0.0- 1.0 [facility] CenterAutomated blood neutrophil count 2019-12-13 14:33:00* Test Item Value Reference Range Interpretation Comments Neutrophils # (Auto) (test code = 751-8) 11.5 2.1-6.9 [facility] CenterBlood lymphocytes count (number/volume) 2019-12-13 14:33:00* Test Item Value Reference Range Interpretation Comments Lymphocytes # (Auto) (test code = 00993-2) 0.7 1.0-3.2 [facility] CenterBlood monocytes automated count (number/volume)2019-12-13 14:33:00* Test Item Value Reference Range Interpretation Comments Monocytes # (Auto) (test code = 742-7) 0.4 0.2-0.8 [facility] CenterAutomated blood eosinophil count 2019-12-13 14:33:00* Test Item Value Reference Range Interpretation Comments Eosinophils # (Auto) (test code = 711-2) 0.0 0.0-0.4 [facility] CenterAutomated blood basophil count (count/volume)2019-12-13 14:33:00* Test Item Value Reference Range Interpretation Comments Basophils # (Auto) (test code = 704-7) 0.0 0.0-0.1 [facility] CenterFluoroscopic procedure less than one hour iwphiyla8635-77-55 14:33:00* Test Item Value Reference Range Interpretation Comments Absolute Immature Granulocyte (auto (mojgan t code = Absolute Immature Granulocyte (auto) 0.16 0-0.1 [facility] CenterProthrombin time (PT) in platelet poor plasma by coagulation jrzge2192-42-87 14:33:00* Test Item Value Reference Range Interpretation Comments Prothrombin Time (test code = 5902-2) 14.9 11.9-14.5 [facility] CenterINR in Platelet poor plasma by Coagulation dwrat9913-40-70 14:33:00* Test Item Value Reference Range Interpretation Comments Prothromb Time International Ratio (test code = 6301-6) 1.10 Oral Anticoagulant Therapy INR Values:1. Low Intensity Therapy 1.5 - 2.02 . Moderate Intensity Therapy 2.0 - 3.03. High Intensity Therapy(1) 2.5 - 3. 54. High Intensity Therapy(2) 3.0 - 4.05. Panic Value INR > 5.0 [facility] CenterActivated partial thromboplastin time (aPTT) in platelet poor plasma by coagulation hrxuj4938-25-13 14:33:00* Test Item Value Reference Range Interpretation Comments Activated Partial Thromboplast Time (test code = 82974-9) 25.8 23.8-35.5 [facility] plasma sodium measurement (moles/volume)2019-12-13 14:33:00* Test Item Value Reference Range Interpretation Comments Sodium Level (test code = 2951-2) 130 136-145 [facility]erum or plasma potassium measurement (moles/volume)2019-12-13 14:33:00* Test Item Value Reference Range Interpretation Comments Potassium Level (test code = 2823-3) 5.2 3.5-5.1 [facility] Hospitalerum or plasma chloride measurement (moles/volume)2019-12-13 14:33:00* Test Item Value Reference Range Interpretation Comments Chloride Level (test code = 2075-0) 88 98-107 [facility] Hospitalerum or plasma carbon dioxide, total measurement (moles/volume)2019-12-13 14:33:00* Test Item Value Reference Range Interpretation Comments Carbon Dioxide Level (test code = 2028-9) 26 22-29 [facility] Hospitalerum or plasma anion ygg3983-60-42 14:33:00* Test Item Value Reference Range Interpretation Comments Anion Gap (test code = 48095-4) 21.2 8-16 [facility] Hospitalerum or plasma urea nitrogen measurement (mass/volume)2019-12-13 14:33:00* Test Item Value Reference Range Interpretation Comments Blood Urea Nitrogen (test code = 3094-0) 95 7-26 [facility] Hospitalerum or plasma creatinine measurement (mass/volume)2019-12-13 14:33:00* Test Item Value Reference Range Interpretation Comments Creatinine (test code = 2160-0) 8.31 0.72-1.25 [facility] Hospitalerum or plasma urea nitrogen/creatinine mass tmusg7451-59-64 14:33:00* Test Item Value Reference Range Interpretation Comments BUN/Creatinine Ratio (test code = 3097-3) 11 6-25 [facility] CenterEstimated glomerular filtration rate (GFR) eqcfbjyocqzhx1263-59-34 14:33:00* Test Item Value Reference Range Interpretation Comments Estimat Glomerular Filtration Rate (test code = 741295506) 6 >60 Ranges were taken from the National Kidney Disease Education Program and the [facility] Kidney Foundation literature.Reference ranges:60 or greater: Gmfxcb96-27 ( for 3 consecutive months): Chronic kidney disease 15 or less: Kidney failureSt. Joseph Medical CenterGlucose ytgkumwslle3758-25-90 14:33:00* Test Item Value Reference Range Interpretation Comments Glucose Level (test code = SGR9101) 522 74-118 Results repeated and called to [Dr. [place]] at 1520 on 12/13/19 by Zoraida Victoria. Re ad back and verified.[facility] Hospitalerum or plasma calcium measurement (mass/volume)2019-12-13 14:33:00* Test Item Value Reference Range Interpretation Comments Calcium Level (test code = 55576-1) 8.1 8.4-10.2 [facility] Hospitalerum or plasma total bilirubin measurement (mass/volume)2019-12-13 14:33:00* Test Item Value Reference Range Interpretation Comments Total Bilirubin (test code = 1975-2) 0.3 0.2-1.2 [facility] CenterFluoroscopic procedure less than one hour shgsshsx1882-50-39 14:33:00* Test Item Value Reference Range Interpretation Comments Aspartate Amino Transf (AST/SGOT) (test code = Aspartate Amino Transf (AST/SGOT)) 7 5-34 [facility] Hospitalerum or plasma alanine aminotransferase measurement (enzymatic activity/volume)2019-12-13 14:33:00* Test Item Value Reference Range Interpretation Comments Alanine Aminotransferase (ALT/SGPT) (test code = 1742-6) 17 0-55 [facility] Hospitalerum or plasma protein measurement (mass/volume)2019-12-13 14:33:00* Test Item Value Reference Range Interpretation Comments Total Protein (test code = 2885-2) 6.3 6.5-8.1 [facility] Hospitalerum or plasma albumin measurement (mass/volume)2019-12-13 14:33:00* Test Item Value Reference Range Interpretation Comments Albumin (test code = 1751-7) 1.6 3.5-5.0 [facility] CenterPlasma globulin measurement (mass/volume) 2019-12-13 14:33:00* Test Item Value Reference Range Interpretation Comments Globulin (test code = 99370-9) 4.7 2.3-3.5 [facility] Hospitalerum or plasma albumin/globulin mass sckod0596-39-66 14:33:00* Test Item Value Reference Range Interpretation Comments Albumin/Globulin Ratio (test code = 1759-0) 0.3 0.8-2.0 [facility] Hospitalerum or plasma alkaline phosphatase measurement (enzymatic activity/volume)2019-12-13 14:33:00* Test Item Value Reference Range Interpretation Comments Alkaline Phosphatase (test code = 6768-6) 97 40-150 [facility] CenterKNEE RIGHT THREE PVLYY8567-34-80 20:31:00 [facility] [address] [place] [address] Patient Name: CHARLOTTE MARTINEZ MR #: [id number] : 1940 Age/Sex: 79/M Req #: [id number] Adm Physician: Ordered by: DOLLY CRAWFORD SYSTEMS ANALYST Report #: [id number] Location: ER Room/Bed: Procedure: [id number] DX/KNEE RIGHT THREE VIEWS Exam Date: 12/02/19 [...] abnormality. Small knee joint effusion. Signed by: Papi Villarreal MD on 12/02/2019 8:35 PM Dictated By: PAPI VILLARREAL MD ectronically Signed By: PAPI VILLARREAL MD on 12/02/192034 Transcribed By: MAYA PEREZ on 12/02/192034 COPY TO: DOLLY CRAWFORD SYSTEMS ANALYST Capillary blood glucose measurement by glucometer (mass/volume)2019-05-30 10:55:00* Test Item Value Reference Range Interpretation Comments Bedside Glucose (test code = 87416-1) 279 70-120 Meter ID: [id number] [facility] CenterCapillary blood glucose measurement by glucometer (mass/volume)2019-05-30 10:55:00* Test Item Value Reference Range Interpretation Comments Bedside Glucose (test code = 03332-1) 279 70-120 Meter ID: [id number] [facility] CenterBedside Glucose 2019-05-29 19:57:00* Test Item Value Reference Range Interpretation Comments Bedside Glucose (test code = 82686-0) 152 70-120 H Meter ID: [id number]. Joseph Medical CenterDifferential Total Cells Gzzjlkt1156-35-51 10:10:00* Test Item Value Reference Range Interpretation Comments Differential Total Cells Counted (test code = Differen tial Total Cells Counted) 100 [facility] CenterNeutrophils % (Manual)2019-05-29 10:10:00 * Test Item Value Reference Range Interpretation Comments Neutrophils % (Manual) (test code = 33847-4) 61 40-74 [facility] CenterLymphocytes % (Manual)2019-05-29 10:10:00 * Test Item Value Reference Range Interpretation Comments Lymphocytes % (Manual) (test code = 737-7) 37 19-48 [facility] CenterMonocytes % (Manual)2019-05-29 10:10:00* Test Item Value Reference Range Interpretation Comments Monocytes % (Manual) (test code = 744-3) 2 3.4-9.[address] [facility] CenterPlatelet Bjeqcliz7120-92-17 10:10:00* Test Item Value Reference Range Interpretation Comments Platelet Estimate (test code = 58710-4) ADEQUATE [facility] CenterPlatelet Morphology Mjsmscr2991-15-03 10:10:00* Test Item Value Reference Range Interpretation Comments Platelet Morphology Comment (test code = 95676-1) NORMAL [facility] CenterRed Cell Morphology Dmyoovi0461-55-27 10:10:00* Test Item Value Reference Range Interpretation Comments Red Cell Morphology Comment (test code = 6742-1) NORMAL [facility] Hospitalodium Qmnuw9471-46-45 09:44:00* Test Item Value Reference Range Interpretation Comments Sodium Level (test code = 2951-2) 131 136-[address] [facility] CenterPotassium Kszrm6091-14-07 09:44:00* Test Item Value Reference Range Interpretation Comments Potassium Level (test code = 2823-3) 5.1 3.5-5.1 [facility] CenterChloride Molte9935-03-54 09:44:00* Test Item Value Reference Range Interpretation Comments Chloride Level (test code = 2075-0) 91 98-[address] [facility] CenterCarbon Dioxide Maxag6591-13-34 09:44:00* Test Item Value Reference Range Interpretation Comments Carbon Dioxide Level (test code = 2028-9) 20 22-[address] [facility] CenterAnion Nmg5556-50-84 09:44:00* Test Item Value Reference Range Interpretation Comments Anion Gap (test code = 57581-3) 25.1 8-[address] [facility] CenterBlood Urea Gnaoxrhw5746-03-84 09:44:00* Test Item Value Reference Range Interpretation Comments Blood Urea Nitrogen (test code = 3094-0) 83 7-[address] [facility] CenterCreatinine2019-10-28 09:44:00* Test Item Value Reference Range Interpretation Comments Creatinine (test code = 2160-0) 10.37 0.72-1.[address] [facility] CenterBUN/Creatinine Chbnb1590-04-37 09:44:00* Test Item Value Reference Range Interpretation Comments BUN/Creatinine Ratio (test code = 3097-3) 8 6-25 [facility] CenterEstimat Glomerular Filtration Rate 2019-05-29 09:44:00* Test Item Value Reference Range Interpretation Comments Estimat Glomerular Filtration Rate (test code = 272005258) 5 >60 L Ranges were taken from the National Kidney Disease Education Program and the [facility] Kidney Foundation literature.Reference ranges:60 or greater: Jjdpgt27-69 ( for 3 consecutive months): Chronic kidney disease 15 or less: Kidney failureSt. Joseph Medical CenterGlucose Roomx1788-62-17 09:44:00* Test Item Value Reference Range Interpretation Comments Glucose Level (test code = TMY9041) 229 74-[address] [facility] CenterCalcium Igmaj8051-08-82 09:44:00* Test Item Value Reference Range Interpretation Comments Calcium Level (test code = 81791-2) 9.0 8.4-10.2 [facility] CenterTotal Cqowtpgpn4965-02-73 09:44:00* Test Item Value Reference Range Interpretation Comments Total Bilirubin (test code = 1975-2) 0.4 0.2-1.2 [facility] CenterAspartate Amino Transf (AST/SGOT) 2019-05-29 09:44:00* Test Item Value Reference Range Interpretation Comments Aspartate Amino Transf (AST/SGOT) (test code = Aspartate Amino Transf (AST/SGOT)) 7 5-34 [facility] CenterAlanine Aminotransferase (ALT/SGPT) 2019-05-29 09:44:00* Test Item Value Reference Range Interpretation Comments Alanine Aminotransferase (ALT/SGPT) (test code = 1742-6) 12 0-55 [facility] CenterTofillmore community medical center Wspgtog9257-35-76 09:44:00* Test Item Value Reference Range Interpretation Comments Total Protein (test code = 2885-2) 6.9 6.5-8.1 [facility] CenterAlbumin2019-10-28 09:44:00* Test Item Value Reference Range Interpretation Comments Albumin (test code = 1751-7) 3.1 3.5-5.[address] [facility] CenterGlobulin2019-10-28 09:44:00* Test Item Value Reference Range Interpretation Comments Globulin (test code = 74175-5) 3.8 2.3-3.[address] [facility] CenterAlbumin/Globulin Nmler8386-56-97 09:44:00 * Test Item Value Reference Range Interpretation Comments Albumin/Globulin Ratio (test code = 1759-0) 0.8 0.8-2.0 [facility] CenterAlkaline Vcmtdrqzlop4509-97-66 09:44:00* Test Item Value Reference Range Interpretation Comments Alkaline Phosphatase (test code = 6768-6) 45 40-150 [facility] CenterWhite Blood Ponns4089-36-40 09:21:00* Test Item Value Reference Range Interpretation Comments White Blood Count (test code = 6690-2) 14.12 4.8-10.[address] [facility] CenterRed Blood Ibokw5755-27-43 09:21:00* Test Item Value Reference Range Interpretation Comments Red Blood Count (test code = 789-8) 4.53 4.3-5.7 [facility] CenterHemoglobin2019-10-28 09:21:00* Test Item Value Reference Range Interpretation Comments Hemoglobin (test code = 53938-3) 13.9 14.0-18.[address] [facility] CenterHematocrit2019-10-28 09:21:00* Test Item Value Reference Range Interpretation Comments Hematocrit (test code = 4544-3) 42.8 38.2-49.6 [facility] CenterMean Corpuscular Hqrupz0640-71-45 09:21:00* Test Item Value Reference Range Interpretation Comments Mean Corpuscular Volume (test code = 787-2) 94.5 81-99 [facility] CenterMean Corpuscular Qphqynisap6957-31-31 09:21:00* Test Item Value Reference Range Interpretation Comments Mean Corpuscular Hemoglobin (test code = 785-6) 30.7 28-32 [facility] CenterMean Corpuscular Hemoglobin Concent 2019-05-29 09:21:00* Test Item Value Reference Range Interpretation Comments Mean Corpuscular Hemoglobin Concent (test code = 786-4) 32.5 31-35 [facility] CenterRed Cell Distribution Qccbq5111-19-29 09:21:00* Test Item Value Reference Range Interpretation Comments Red Cell Distribution Width (test code = 58959-4) 15.3 11.7 -14.[address] [facility] CenterPlatelet Kwehq1550-74-64 09:21:00* Test Item Value Reference Range Interpretation Comments Platelet Count (test code = 777-3) 190 140-360 [facility] CenterNeutrophils (%) (Auto)2019-05-29 09:21:00 * Test Item Value Reference Range Interpretation Comments Neutrophils (%) (Auto) (test code = 91469-1) 62.0 38.7-80.0 [facility] CenterLymphocytes (%) (Auto)2019-05-29 09:21:00 * Test Item Value Reference Range Interpretation Comments Lymphocytes (%) (Auto) (test code = 736-9) 36.3 18.0-39.1 [facility] CenterMonocytes (%) (Auto)2019-05-29 09:21:00* Test Item Value Reference Range Interpretation Comments Monocytes (%) (Auto) (test code = 5905-5) 1.3 4.4-11.[address] [facility] CenterEosinophils (%) (Auto)2019-05-29 09:21:00 * Test Item Value Reference Range Interpretation Comments Eosinophils (%) (Auto) (test code = 713-8) 0.0 0.0-6.0 [facility] CenterBasophils (%) (Auto)2019-05-29 09:21:00* Test Item Value Reference Range Interpretation Comments Basophils (%) (Auto) (test code = 706-2) 0.1 0.0-1.0 [facility] CenterIM GRANULOCYTES %2019-05-29 09:21:00* Test Item Value Reference Range Interpretation Comments IM GRANULOCYTES % (test code = IM GRANULOCYTES %) 0.3 0.0- 1.0 [facility] CenterNeutrophils # (Auto)2019-05-29 09:21:00* Test Item Value Reference Range Interpretation Comments Neutrophils # (Auto) (test code = 751-8) 8.8 2.1-6.[address] [facility] CenterLymphocytes # (Auto)2019-05-29 09:21:00* Test Item Value Reference Range Interpretation Comments Lymphocytes # (Auto) (test code = 86016-3) 5.1 1.0-3.[address] [facility] CenterMonocytes # (Auto)2019-05-29 09:21:00* Test Item Value Reference Range Interpretation Comments Monocytes # (Auto) (test code = 742-7) 0.2 0.2-0.8 [facility] CenterEosinophils # (Auto)2019-05-29 09:21:00* Test Item Value Reference Range Interpretation Comments Eosinophils # (Auto) (test code = 711-2) 0.0 0.0-0.4 [facility] CenterBasophils # (Auto)2019-05-29 09:21:00* Test Item Value Reference Range Interpretation Comments Basophils # (Auto) (test code = 704-7) 0.0 0.0-0.1 [facility] CenterAbsolute Immature Granulocyte (auto 2019-05-29 09:21:00* Test Item Value Reference Range Interpretation Comments Absolute Immature Granulocyte (auto (mojgan t code = Absolute Immature Granulocyte (auto) 0.04 0-0.1 [facility] CenterBlood leukocytes automated count (number/volume)2019-05-29 09:10:00* Test Item Value Reference Range Interpretation Comments White Blood Count (test code = 6690-2) 14.12 4.8-10.8 [facility] CenterBlnorthwest medical center erythrocytes automated count (number/volume)2019-05-29 09:10:00* Test Item Value Reference Range Interpretation Comments Red Blood Count (test code = 789-8) 4.53 4.3-5.7 [facility] CenterBlood hemoglobin measurement (moles/volume)2019-05-29 09:10:00* Test Item Value Reference Range Interpretation Comments Hemoglobin (test code = 90956-0) 13.9 14.0-18.0 [facility] CenterAutomated blood hematocrit (volume fraction)2019-05-29 09:10:00* Test Item Value Reference Range Interpretation Comments Hematocrit (test code = 4544-3) 42.8 38.2-49.6 [facility] CenterAutomated erythrocyte mean corpuscular hibgbk5057-91-82 09:10:00* Test Item Value Reference Range Interpretation Comments Mean Corpuscular Volume (test code = 787-2) 94.5 81-99 [facility] CenterAutomated erythrocyte mean corpuscular hemoglobin (mass per erythrocyte)2019-05-29 09:10:00* Test Item Value Reference Range Interpretation Comments Mean Corpuscular Hemoglobin (test code = 785-6) 30.7 28-32 [facility] CenterAutomated erythrocyte mean corpuscular hemoglobin concentration measurement (mass/volume)2019-05-29 09:10:00* Test Item Value Reference Range Interpretation Comments Mean Corpuscular Hemoglobin Concent (test code = 786-4) 32.5 31-35 [facility] CenterRDW XrpWv-Oxk6266-43-28 09:10:00* Test Item Value Reference Range Interpretation Comments Red Cell Distribution Width (test code = 79141-9) 15.3 11.7 -14.4 [facility] CenterAutomated blood platelet count (count/volume)2019-05-29 09:10:00* Test Item Value Reference Range Interpretation Comments Platelet Count (test code = 777-3) 190 140-360 [facility] CenterAutomated blood segmented neutrophil count as percentage of total koouzsxdmp5135-65-05 09:10:00* Test Item Value Reference Range Interpretation Comments Neutrophils (%) (Auto) (test code = 98149-5) 62.0 38.7-80.0 [facility] CenterAutomated blood lymphocyte count as percentage ot total ersfkvzrny1132-52-42 09:10:00* Test Item Value Reference Range Interpretation Comments Lymphocytes (%) (Auto) (test code = 736-9) 36.3 18.0-39.1 [facility] CenterAutomated blood monocyte count as percentage of total myvkgvutvi2883-03-71 09:10:00* Test Item Value Reference Range Interpretation Comments Monocytes (%) (Auto) (test code = 5905-5) 1.3 4.4-11.3 [facility] CenterAutomated blood eosinophil count as percentage of total dwrjxdeapv5249-02-26 09:10:00* Test Item Value Reference Range Interpretation Comments Eosinophils (%) (Auto) (test code = 713-8) 0.0 0.0-6.0 [facility] CenterAutomated blood basophil count as percentage of total bznstsfgdr8441-52-93 09:10:00* Test Item Value Reference Range Interpretation Comments Basophils (%) (Auto) (test code = 706-2) 0.1 0.0-1.0 [facility] CenterFluoroscopic procedure less than one hour bvfuiubj3060-11-36 09:10:00* Test Item Value Reference Range Interpretation Comments IM GRANULOCYTES % (test code = IM GRANULOCYTES %) 0.3 0.0- 1.0 [facility] CenterAutomated blood neutrophil count 2019-05-29 09:10:00* Test Item Value Reference Range Interpretation Comments Neutrophils # (Auto) (test code = 751-8) 8.8 2.1-6.9 [facility] CenterBlood lymphocytes count (number/volume) 2019-05-29 09:10:00* Test Item Value Reference Range Interpretation Comments Lymphocytes # (Auto) (test code = 30311-6) 5.1 1.0-3.2 [facility] CenterBlnorthwest medical center monocytes automated count (number/volume)2019-05-29 09:10:00* Test Item Value Reference Range Interpretation Comments Monocytes # (Auto) (test code = 742-7) 0.2 0.2-0.8 [facility] CenterAutomated blood eosinophil count 2019-05-29 09:10:00* Test Item Value Reference Range Interpretation Comments Eosinophils # (Auto) (test code = 711-2) 0.0 0.0-0.4 [facility] CenterAutomated blood basophil count (count/volume)2019-05-29 09:10:00* Test Item Value Reference Range Interpretation Comments Basophils # (Auto) (test code = 704-7) 0.0 0.0-0.1 [facility] CenterFluoroscopic procedure less than one hour gknkanfv8376-30-25 09:10:00* Test Item Value Reference Range Interpretation Comments Absolute Immature Granulocyte (auto (mojgan t code = Absolute Immature Granulocyte (auto) 0.04 0-0.1 [facility] CenterFluoroscopic procedure less than one hour hzdjablq7362-50-67 09:10:00* Test Item Value Reference Range Interpretation Comments Differential Total Cells Counted (test code = Differen tial Total Cells Counted) 100 [facility] CenterManual blood neutrophils/100 leukocytes 2019-05-29 09:10:00* Test Item Value Reference Range Interpretation Comments Neutrophils % (Manual) (test code = 78354-2) 61 40-74 [facility] CenterManual blood lymphocytes/100 leukocytes 2019-05-29 09:10:00* Test Item Value Reference Range Interpretation Comments Lymphocytes % (Manual) (test code = 737-7) 37 19-48 [facility] CenterManual blood monocytes/100 leukocytes 2019-05-29 09:10:00* Test Item Value Reference Range Interpretation Comments Monocytes % (Manual) (test code = 744-3) 2 3.4-9.0 [facility] CenterBlood platelets count by estimate (number/volume)2019-05-29 09:10:00* Test Item Value Reference Range Interpretation Comments Platelet Estimate (test code = 83938-9) ADEQUATE [facility] CenterPlatelet ivynqqsdrv6058-09-33 09:10:00* Test Item Value Reference Range Interpretation Comments Platelet Morphology Comment (test code = 95063-5) NORMAL [facility] CenterRB xkemadfgzf3126-79-76 09:10:00* Test Item Value Reference Range Interpretation Comments Red Cell Morphology Comment (test code = 6742-1) [facility]AL [facility]erum [facility] plasma sodium measurement (moles/volume)2019-05-29 09:10:00* Test Item Value Reference Range Interpretation Comments Sodium Level (test code = 2951-2) 131 136-145 [facility] Hospitalerum [facility] plasma potassium measurement (moles/volume)2019-05-29 09:10:00* Test Item Value Reference Range Interpretation Comments Potassium Level (test code = 2823-3) 5.1 3.5-5.1 [facility] Hospitalerum [facility] plasma chloride measurement (moles/volume)2019-05-29 09:10:00* Test Item Value Reference Range Interpretation Comments Chloride Level (test code = 2075-0) 91 98-107 [facility] Hospitalerum or plasma carbon dioxide, total measurement (moles/volume)2019-05-29 09:10:00* Test Item Value Reference Range Interpretation Comments Carbon Dioxide Level (test code = 2028-9) 20 22-29 [facility] Hospitalerum or plasma anion xuo5032-05-70 09:10:00* Test Item Value Reference Range Interpretation Comments Anion Gap (test code = 22992-0) 25.1 8-16 [facility]erum [facility] plasma urea nitrogen measurement (mass/volume)2019-05-29 09:10:00* Test Item Value Reference Range Interpretation Comments Blood Urea Nitrogen (test code = 3094-0) 83 7-26 [facility] Hospitalerum or plasma creatinine measurement (mass/volume)2019-05-29 09:10:00* Test Item Value Reference Range Interpretation Comments Creatinine (test code = 2160-0) 10.37 0.72-1.25 [facility] Hospitalerum or plasma urea nitrogen/creatinine mass tvcun4819-17-86 09:10:00* Test Item Value Reference Range Interpretation Comments BUN/Creatinine Ratio (test code = 3097-3) 8 6-25 [facility] CenterEstimated glomerular filtration rate (GFR) pgbwjadztfrwu5936-71-29 09:10:00* Test Item Value Reference Range Interpretation Comments Estimat Glomerular Filtration Rate (test code = 211838352) 5 >60 Ranges were taken from the National Kidney Disease Education Program and the [facility] Foundation literature.Reference ranges:60 or greater: Wvdxzx73-75 ( for 3 consecutive months): Chronic kidney disease 15 or less: Kidney failureSt. Joseph Medical CenterGlucose nroztaoeldc0282-34-77 09:10:00* Test Item Value Reference Range Interpretation Comments Glucose Level (test code = UOS9856) 229 74-118 [facility] Hospitalerum or plasma calcium measurement (mass/volume)2019-05-29 09:10:00* Test Item Value Reference Range Interpretation Comments Calcium Level (test code = 36500-1) 9.0 8.4-10.2 [facility] Hospitalerum or plasma total bilirubin measurement (mass/volume)2019-05-29 09:10:00* Test Item Value Reference Range Interpretation Comments Total Bilirubin (test code = 1975-2) 0.4 0.2-1.2 [facility] CenterFluoroscopic procedure less than one hour sxrbucra9690-37-53 09:10:00* Test Item Value Reference Range Interpretation Comments Aspartate Amino Transf (AST/SGOT) (test code = Aspartate Amino Transf (AST/SGOT)) 7 5-34 [facility] Hospitalerum or plasma alanine aminotransferase measurement (enzymatic activity/volume)2019-05-29 09:10:00* Test Item Value Reference Range Interpretation Comments Alanine Aminotransferase (ALT/SGPT) (test code = 1742-6) 12 0-55 [facility] Hospitalerum or plasma protein measurement (mass/volume)2019-05-29 09:10:00* Test Item Value Reference Range Interpretation Comments Total Protein (test code = 2885-2) 6.9 6.5-8.1 [facility] Hospitalerum or plasma albumin measurement (mass/volume)2019-05-29 09:10:00* Test Item Value Reference Range Interpretation Comments Albumin (test code = 1751-7) 3.1 3.5-5.0 [facility] CenterPlasma globulin measurement (mass/volume) 2019-05-29 09:10:00* Test Item Value Reference Range Interpretation Comments Globulin (test code = 60359-9) 3.8 2.3-3.5 [facility] Hospitalerum or plasma albumin/globulin mass rbrce2832-85-70 09:10:00* Test Item Value Reference Range Interpretation Comments Albumin/Globulin Ratio (test code = 1759-0) 0.8 0.8-2.0 [facility] Hospitalerum or plasma alkaline phosphatase measurement (enzymatic activity/volume)2019-05-29 09:10:00* Test Item Value Reference Range Interpretation Comments Alkaline Phosphatase (test code = 6768-6) 45 40-150 [facility] CenterFluoroscopic procedure less than one hour sbzixagj1790-32-29 09:10:00* Test Item Value Reference Range Interpretation Comments Differential Total Cells Counted (test code = Differen tial Total Cells Counted) 100 [facility] CenterManual blood neutrophils/100 leukocytes 2019-05-29 09:10:00* Test Item Value Reference Range Interpretation Comments Neutrophils % (Manual) (test code = 89811-2) 61 40-74 [facility] CenterManual blood lymphocytes/100 leukocytes 2019-05-29 09:10:00* Test Item Value Reference Range Interpretation Comments Lymphocytes % (Manual) (test code = 737-7) 37 19-48 [facility] CenterManual blood monocytes/100 leukocytes 2019-05-29 09:10:00* Test Item Value Reference Range Interpretation Comments Monocytes % (Manual) (test code = 744-3) 2 3.4-9.0 [facility] CenterBlood platelets count by estimate (number/volume)2019-05-29 09:10:00* Test Item Value Reference Range Interpretation Comments Platelet Estimate (test code = 63312-2) ADEQUATE [facility] CenterPlatelet bzduvhtmmr4365-09-29 09:10:00* Test Item Value Reference Range Interpretation Comments Platelet Morphology Comment (test code = 81450-3) NORMAL [facility] CenterRBC apduxqakbl7416-59-98 09:10:00* Test Item Value Reference Range Interpretation Comments Red Cell Morphology Comment (test code = 6742-1) NORMAL [facility] CenterEosinophils % (Manual)2019-05-26 09:28:00 * Test Item Value Reference Range Interpretation Comments Eosinophils % (Manual) (test code = 714-6) 1 0-7 [facility] CenterReactive Nsbvjkyahjx3603-15-38 09:28:00* Test Item Value Reference Range Interpretation Comments Reactive Lymphocytes (test code = 18094-6) 15 [facility] blood eosinophil count as percentage of total jcddqdlyzp4960-00-60 07:34:00* Test Item Value Reference Range Interpretation Comments Eosinophils % (Manual) (test code = 714-6) 1 0-7 [facility] CenterBlnorthwest medical center lymphocytes variant count (number/volume)2019-05-26 07:34:00* Test Item Value Reference Range Interpretation Comments Reactive Lymphocytes (test code = 52064-7) 15 [facility] blood eosinophil count as percentage of total gfuzzequju0170-43-21 07:34:00* Test Item Value Reference Range Interpretation Comments Eosinophils % (Manual) (test code = 714-6) 1 0-7 [facility] CenterBlnorthwest medical center lymphocytes variant count (number/volume)2019-05-26 07:34:00* Test Item Value Reference Range Interpretation Comments Reactive Lymphocytes (test code = 82248-7) 15 [facility] CenterBlood Akcnfhz6957-41-98 19:55:00* Test Item Value Reference Range Interpretation Comments Blood Culture (test code = 80655878) NO GROWTH AFTER 5 DAYS, FINAL REPORT [facility] CenterHepatitis B Surface Antibody, Quant 2019-05-23 07:49:00* Test Item Value Reference Range Interpretation Comments Hepatitis B Surface Antibody, Quant (test code = 5194-6) >1000.0 Immunity>9.9 Status of Immunity Anti-HBs Level Inconsistent with Immunity 0.0 - 9.9Consistent with Immunity >9.9[facility]Hepatitis Be Qzezbyv2726-18-26 07:49:00* Test Item Value Reference Range Interpretation Comments Hepatitis Be Antigen (test code = 44912-0) Negative Negative Performed at: [facility] [id number] Director: Gregor Hernandez MD, Phone: [phone] Saint Michael Hospitalerum hepatitis B virus surface antibody assay by radioimmunoassay (units/volume)2019-05-22 16:11:00* Test Item Value Reference Range Interpretation Comments Hepatitis B Surface Antibody, Quant (test code = 5194-6) >1000.0 Immunity>9.9 Status of Immunity Anti-HBs Level Inconsistent with Immunity 0.0 - 9.9Consistent with Immunity >9.9[facility]ererum hepatitis B virus e antigen detection by enzyme adyhndnfhoo9266-10-13 16:11:00* Test Item Value Reference Range Interpretation Comments Hepatitis Be Antigen (test code = 65695-9) Negative Negative Performed at: [employer] [facility] [id number] Director: Gregor Hernandez MD, Phone: [phone] Saint Michael Hospitalerum hepatitis B virus surface antibody assay by radioimmunoassay (units/volume)2019-05-22 16:11:00* Test Item Value Reference Range Interpretation Comments Hepatitis B Surface Antibody, Quant (test code = 5194-6) >1000.0 Immunity>9.9 Status of Immunity Anti-HBs Level Inconsistent with Immunity 0.0 - 9.9Consistent with Immunity >9.9[facility] Centererum hepatitis B virus e antigen detection by enzyme clxkdoitxxl3622-08-24 16:11:00* Test Item Value Reference Range Interpretation Comments Hepatitis Be Antigen (test code = 49642-9) Negative Negative Performed at: [facility] [id number] Director: Gregor Hernandez MD, Phone: [phone] [facility] CenterCT ORBIT/SELLA/PF PX2152-38-88 20:26:00 [place] [address] Patient Name: CHARLOTTE MARTINEZ MR #: [id number] : 1940 Age/Sex: 78/M Req #: [id number] Adm Physician: Ordered by: SHIELA DASH MD Report #: [id number] Location: ER Room/Bed: Procedure: 1019-[address]/CT [...] soft tissue cellulit is. Signed by: Dr. Marielos Bailey M.D. on 05/20/2019 8:34 PM Dicta nicholas By: MARIELOS BAILEY MD 33 COPY TO: SHIELA DASH MD Blood cxlkbdh1825-67-60 19:40:00* Test Item Value Reference Range Interpretation Comments Blood Culture (test code = 49003558) NO GROWTH AFTER 5 DAYS, FINAL REPORT [facility] CenterBlood zeaztvp9080-85-80 19:40:00* Test Item Value Reference Range Interpretation Comments Blood Culture (test code = 23034771) NO GROWTH AFTER 5 DAYS, FINAL REPORT [facility] CenterBedside Uqtcsxp1362-33-81 15:52:00* Test Item Value Reference Range Interpretation Comments Bedside Glucose (test code = 30138-1) 130 70-120 H Meter ID: [id number]. Joseph Medical CenterDifferential Total Cells Jreriqc2746-99-04 08:45:00* Test Item Value Reference Range Interpretation Comments Differential Total Cells Counted (test code = Differen tial Total Cells Counted) 100 [facility] CenterNeutrophils % (Manual)2019-01-06 08:45:00 * Test Item Value Reference Range Interpretation Comments Neutrophils % (Manual) (test code = 80201-2) 12 40-[address] [facility] CenterLymphocytes % (Manual)2019-01-06 08:45:00 * Test Item Value Reference Range Interpretation Comments Lymphocytes % (Manual) (test code = 737-7) 80 19-[address] [facility] CenterMonocytes % (Manual)2019-01-06 08:45:00* Test Item Value Reference Range Interpretation Comments Monocytes % (Manual) (test code = 744-3) 6 3.4-9.0 [facility] CenterBlast Cells %2019-01-06 08:45:00* Test Item Value Reference Range Interpretation Comments Blast Cells % (test code = 96128-0) 2 [facility] CenterPlatelet Lmvbpwsl2833-82-60 08:45:00* Test Item Value Reference Range Interpretation Comments Platelet Estimate (test code = 82948-3) SLIGHTLY DECREASED [facility] CenterPlatelet Morphology Slvwgqt6940-10-26 08:45:00* Test Item Value Reference Range Interpretation Comments Platelet Morphology Comment (test code = 02288-8) NORMAL [facility] CenterPolychromasia2019-06-07 08:45:00* Test Item Value Reference Range Interpretation Comments Polychromasia (test code = 94457-3) FEW [facility] CenterHypochromasia2019-06-07 08:45:00* Test Item Value Reference Range Interpretation Comments Hypochromasia (test code = 728-6) MODERATE [facility] CenterRed Cell Morphology Edogkou0150-92-27 08:45:00* Test Item Value Reference Range Interpretation Comments Red Cell Morphology Comment (test code = 6742-1) NORMAL [facility] CenterBlast Cells %2019-01-06 08:45:00* Test Item Value Reference Range Interpretation Comments Blast Cells % (test code = 75631-1) 2 [facility] CenterPolychromasia2019-06-07 08:45:00* Test Item Value Reference Range Interpretation Comments Polychromasia (test code = 81387-3) FEW [facility] CenterHypochromasia2019-06-07 08:45:00* Test Item Value Reference Range Interpretation Comments Hypochromasia (test code = 728-6) MODERATE [facility] Hospitalodium Cilqj4707-58-58 05:43:00* Test Item Value Reference Range Interpretation Comments Sodium Level (test code = 2951-2) 138 136-145 [facility] CenterPotassium Bkrpw0288-26-66 05:43:00* Test Item Value Reference Range Interpretation Comments Potassium Level (test code = 2823-3) 4.1 3.5-5.1 [facility] CenterChloride Ngzko5509-59-87 05:43:00* Test Item Value Reference Range Interpretation Comments Chloride Level (test code = 2075-0) 100 98-107 [facility] CenterCarbon Dioxide Uslfi1816-23-30 05:43:00* Test Item Value Reference Range Interpretation Comments Carbon Dioxide Level (test code = 2028-9) 26 22-29 [facility] CenterAnion Cmu1939-71-32 05:43:00* Test Item Value Reference Range Interpretation Comments Anion Gap (test code = 48163-7) 16.1 8-[address] [facility] CenterBlood Urea Meaqifps9704-25-06 05:43:00* Test Item Value Reference Range Interpretation Comments Blood Urea Nitrogen (test code = 3094-0) 50 7-[address] [facility] CenterCreatinine2019-06-07 05:43:00* Test Item Value Reference Range Interpretation Comments Creatinine (test code = 2160-0) 6.74 0.72-1.[address] [facility] CenterBUN/Creatinine Qkmty2911-01-99 05:43:00* Test Item Value Reference Range Interpretation Comments BUN/Creatinine Ratio (test code = 3097-3) 7 6-25 [facility] CenterEstimat Glomerular Filtration Rate 2019-01-06 05:43:00* Test Item Value Reference Range Interpretation Comments Estimat Glomerular Filtration Rate (test code = 128907119) 8 >60 L Ranges were taken from the National Kidney Disease Education Program and the [facility] Kid[facility] Foundation literature.Reference ranges:60 or greater: Ojpgpc19-42 ( for 3 consecutive months): Chronic kidney disease 15 or less: Kidney failureSt. Joseph Medical CenterGlucose Cwukd6668-06-13 05:43:00* Test Item Value Reference Range Interpretation Comments Glucose Level (test code = AES9967) 105 74-118 [facility] CenterCalcium Tnbuk0208-18-44 05:43:00* Test Item Value Reference Range Interpretation Comments Calcium Level (test code = 27124-5) 8.0 8.4-10.[address] [facility] CenterMagnesium Qivvr8358-34-70 05:43:00* Test Item Value Reference Range Interpretation Comments Magnesium Level (test code = 43285-7) 2.1 1.3-2.1 [facility] CenterMagnesium Klssc9018-50-18 05:43:00* Test Item Value Reference Range Interpretation Comments Magnesium Level (test code = 51966-0) 2.1 1.3-2.1 [facility] CenterWhite Blood Sxstz3709-69-57 05:04:00* Test Item Value Reference Range Interpretation Comments White Blood Count (test code = 6690-2) 25.19 4.8-10.[address] [facility] CenterRed Blood Qqakg5832-22-18 05:04:00* Test Item Value Reference Range Interpretation Comments Red Blood Count (test code = 789-8) 2.59 4.3-5.[address] [facility] CenterHemoglobin2019-06-07 05:04:00* Test Item Value Reference Range Interpretation Comments Hemoglobin (test code = 85790-9) 7.5 14.0-18.[address] [facility] CenterHematocrit2019-06-07 05:04:00* Test Item Value Reference Range Interpretation Comments Hematocrit (test code = 4544-3) 23.2 38.2-49.[address] [facility] CenterMean Corpuscular Fgjmzf6534-89-49 05:04:00* Test Item Value Reference Range Interpretation Comments Mean Corpuscular Volume (test code = 787-2) 89.6 81-99 [facility] CenterMean Corpuscular Pligswreev6618-35-79 05:04:00* Test Item Value Reference Range Interpretation Comments Mean Corpuscular Hemoglobin (test code = 785-6) 29.0 28-32 [facility] CenterMean Corpuscular Hemoglobin Concent 2019-01-06 05:04:00* Test Item Value Reference Range Interpretation Comments Mean Corpuscular Hemoglobin Concent (test code = 786-4) 32.3 31-35 [facility] CenterRed Cell Distribution Dwdms7047-12-42 05:04:00* Test Item Value Reference Range Interpretation Comments Red Cell Distribution Width (test code = 97329-8) 20.9 11.7 -14.[address] [facility] CenterPlatelet Cjcpb7290-71-72 05:04:00* Test Item Value Reference Range Interpretation Comments Platelet Count (test code = 777-3) 126 140-[address] [facility] CenterNeutrophils (%) (Auto)2019-01-06 05:04:00 * Test Item Value Reference Range Interpretation Comments Neutrophils (%) (Auto) (test code = 76953-4) 17.6 38.7-80.[address] [facility] CenterLymphocytes (%) (Auto)2019-01-06 05:04:00 * Test Item Value Reference Range Interpretation Comments Lymphocytes (%) (Auto) (test code = 736-9) 75.4 18.0-39.[address] [facility] CenterMonocytes (%) (Auto)2019-01-06 05:04:00* Test Item Value Reference Range Interpretation Comments Monocytes (%) (Auto) (test code = 5905-5) 6.5 4.4-11.3 [facility] CenterEosinophils (%) (Auto)2019-01-06 05:04:00 * Test Item Value Reference Range Interpretation Comments Eosinophils (%) (Auto) (test code = 713-8) 0.1 0.0-6.0 [facility] CenterBasophils (%) (Auto)2019-01-06 05:04:00* Test Item Value Reference Range Interpretation Comments Basophils (%) (Auto) (test code = 706-2) 0.1 0.0-1.0 [facility] CenterIM GRANULOCYTES %2019-01-06 05:04:00* Test Item Value Reference Range Interpretation Comments IM GRANULOCYTES % (test code = IM GRANULOCYTES %) 0.3 0.0- 1.0 [facility] CenterNeutrophils # (Auto)2019-01-06 05:04:00* Test Item Value Reference Range Interpretation Comments Neutrophils # (Auto) (test code = 751-8) 4.4 2.1-6.9 [facility] CenterLymphocytes # (Auto)2019-01-06 05:04:00* Test Item Value Reference Range Interpretation Comments Lymphocytes # (Auto) (test code = 04217-1) 19.0 1.0-3.[address] [facility] CenterMonocytes # (Auto)2019-01-06 05:04:00* Test Item Value Reference Range Interpretation Comments Monocytes # (Auto) (test code = 742-7) 1.6 0.2-0.[address] [facility] CenterEosinophils # (Auto)2019-01-06 05:04:00* Test Item Value Reference Range Interpretation Comments Eosinophils # (Auto) (test code = 711-2) 0.0 0.0-0.4 [facility] CenterBasophils # (Auto)2019-01-06 05:04:00* Test Item Value Reference Range Interpretation Comments Basophils # (Auto) (test code = 704-7) 0.0 0.0-0.1 [facility] CenterAbsolute Immature Granulocyte (auto 2019-01-06 05:04:00* Test Item Value Reference Range Interpretation Comments Absolute Immature Granulocyte (auto (mojgan t code = Absolute Immature Granulocyte (auto) 0.07 0-0.1 [facility] CenterPoikilocytosis2019-06-06 07:23:00* Test Item Value Reference Range Interpretation Comments Poikilocytosis (test code = 779-9) SLIGHT [facility] CenterAnisocytosis2019-06-06 07:23:00* Test Item Value Reference Range Interpretation Comments Anisocytosis (test code = 702-1) [facility] 07:23:00* Test Item Value Reference Range Interpretation Comments Poikilocytosis (test code = 779-9) [facility]An[facility] 07:23:00* Test Item Value Reference Range Interpretation Comments Anisocytosis (test code = 702-1) [facility] B Surface Antibody, Quant 2019-01-05 05:21:00* Test Item Value Reference Range Interpretation Comments Hepatitis B Surface Antibody, Quant (test code = 5194-6) >1000.0 Immunity>9.9 Status of Immunity Anti-HBs Level Inconsistent with Immunity 0.0 - 9.9Consistent with Immunity >9.9[facility] Surface Qwsmgwv7980-56-25 05:21:00* Test Item Value Reference Range Interpretation Comments Hepatitis B Surface Antigen (test code = 5196-1) Negative [facility]at [facility] B Core IgM Ngbefoxu8257-54-02 05:21:00* Test Item Value Reference Range Interpretation Comments Hepatitis B Core IgM Antibody (test code = 33531-5) Negative Ne gative Performed at: [employer] [facility] [id number] Director: Gregor Hernandez MD, Phone: [phone] B Surface Ijhqjjj9876-17-68 05:21:00* Test Item Value Reference Range Interpretation Comments Hepatitis B Surface Antigen (test code = 5196-1) Negative Negat [facility] B Core IgM Xzamaewk7099-66-65 05:21:00* Test Item Value Reference Range Interpretation Comments Hepatitis B Core IgM Antibody (test code = 74127-5) Negative Ne gative Performed at: [facility] [address] [place], [place] [id number] Director: Gregor Hernandez MD, Phone: [phone]. Joseph Medical CenterArterial Blood oX4307-91-05 09:42:00* Test Item Value Reference Range Interpretation Comments Arterial Blood pH (test code = 2744-1) 7.59 7.31-7.[address] [facility] CenterArterial Blood Partial Pressure CO2 2019-01-04 09:42:00* Test Item Value Reference Range Interpretation Comments Arterial Blood Partial Pressure CO2 (test code = 2019-03) 27 41-[address] [facility] CenterArterial Blood Partial Pressure O2 2019-01-04 09:42:00* Test Item Value Reference Range Interpretation Comments Arterial Blood Partial Pressure O2 (test code = 2019-03) 122 80-[address] [facility] Blood WGZ12686-42-12 09:42:00* Test Item Value Reference Range Interpretation Comments Arterial Blood HCO3 (test code = 1960-4) 26 23-28 [facility] CenterArterial Blood Base Ysmbjr6060-03-03 09:42:00* Test Item Value Reference Range Interpretation Comments Arterial Blood Base Excess (test code = 1925-7) 4.0 -2-[address] [facility] CenterArterial Blood Oxygen Saturation 2019-01-04 09:42:00* Test Item Value Reference Range Interpretation Comments Arterial Blood Oxygen Saturation (test code = 2708-6) 99.0 95-[address] [facility] CenterFiO22019-06-05 09:42:00* Test Item Value Reference Range Interpretation Comments FiO2 (test code = FiO2) 40 PT ON PS 8,PEEP 5,40%[facility] CenterArterial Blood pH 2019-01-04 09:42:00* Test Item Value Reference Range Interpretation Comments Arterial Blood pH (test code = 2744-1) 7.59 7.31-7.41 [facility] Centerial [facility] Partial Pressure CO2 2019-01-04 09:42:00* Test Item Value Reference Range Interpretation Comments Arterial Blood Partial Pressure CO2 (test code = 2019-03) 27 41-[address] [facility] Blood Partial Pressure O2 2019-01-04 09:42:00* Test Item Value Reference Range Interpretation Comments Arterial Blood Partial Pressure O2 (test code = 2019-8) 122 80-[address] [facility] CenterArterial Blood RZI79079-40-01 09:42:00* Test Item Value Reference Range Interpretation Comments Arterial Blood HCO3 (test code = 1960-4) 26 23-28 [facility] CenterArterial Blood Base Gnotih4104-62-45 09:42:00* Test Item Value Reference Range Interpretation Comments Arterial Blood Base Excess (test code = 1925-7) 4.0 -2-[address] [facility] CenterArterial Blood Oxygen Saturation 2019-01-04 09:42:00* Test Item Value Reference Range Interpretation Comments Arterial Blood Oxygen Saturation (test code = 2708-6) 99.0 95-[address] [facility] CenterFiO22019-06-05 09:42:00* Test Item Value Reference Range Interpretation Comments FiO2 (test code = FiO2) 40 PT ON PS 8,PEEP 5,40%[facility] CenterTotal Bilirubin 2019-01-04 05:52:00* Test Item Value Reference Range Interpretation Comments Total Bilirubin (test code = 1975-2) 0.3 0.2-1.2 [facility] CenterAspartate Amino Transf (AST/SGOT) 2019-01-04 05:52:00* Test Item Value Reference Range Interpretation Comments Aspartate Amino Transf (AST/SGOT) (test code = Aspartate Amino Transf (AST/SGOT)) 6 5-34 [facility] CenterAlanine Aminotransferase (ALT/SGPT) 2019-01-04 05:52:00* Test Item Value Reference Range Interpretation Comments Alanine Aminotransferase (ALT/SGPT) (test code = 1742-6) 11 0-55 [facility] CenterTotal Tvmfbvz3215-71-02 05:52:00* Test Item Value Reference Range Interpretation Comments Total Protein (test code = 2885-2) 6.2 6.5-8.[address] [facility] CenterAlbumin2019-06-05 05:52:00* Test Item Value Reference Range Interpretation Comments Albumin (test code = 1751-7) 2.9 3.5-5.[address] [facility] CenterGlobulin2019-06-05 05:52:00* Test Item Value Reference Range Interpretation Comments Globulin (test code = 08069-5) 3.3 2.3-3.5 [facility] CenterAlbumin/Globulin Rbkih5528-13-66 05:52:00 * Test Item Value Reference Range Interpretation Comments Albumin/Globulin Ratio (test code = 1759-0) 0.9 0.8-2.0 [facility] CenterAlkaline Mgyxclleyev2373-36-35 05:52:00* Test Item Value Reference Range Interpretation Comments Alkaline Phosphatase (test code = 6768-6) 48 40-150 [facility] CenterCHEST SINGLE (PORTABLE)2019-01-04 05:43:00 [place] [address] Patient Name: CHARLOTTE MARTINEZ MR #: [id number] : 1940 Age/Sex: 78/M Req #: [id number] Adm Physician: STEVEN HAWKINS MD Ordered by: SHIELA DASH MD Report #: [id number] Location: ICU Room/Bed: [place] [address] Procedure: 000 DX/CHEST SINGLE (PORTABLE) Exam Date: 01/04/19 Exa [...] by low lung volumes. Signed by: Dr. Gisell Mitchell MD on 01/04/2019 5:44 AM Dictated By: YULIYA MITCHELL MD 3 Tra nscribed By: HARRIS on 01/04/19543 COPY TO: SHIELA DASH MD CHEST SINGLE (PORTABLE)2019-01-03 06:49:00 [place] [address] Patient Name: CHARLOTTE MARTINEZ MR #: [id number] : 1940 Age/Sex: 78/M Req #: [id number] Adm Physician: Ordered by: SHIELA DASH MD [...] Central vascular congest ion. Signed by: Dr. Gisell Mitchell MD on 01/03/2019 6:51 AM Dictate d By: GISELL MITCHELL MD 0 651 Transcribed By: HARRIS on 01/03/19 0651 COPY TO: ROBERT DASH MD Creatine Kinase HC1898-90-37 05:48:00* Test Item Value Reference Range Interpretation Comments Creatine Kinase MB (test code = 53805-2) 1.70 0-5.0 [place] [address]2019-06-04 05:48:00* Test Item Value Reference Range Interpretation Comments Troponin I (test code = SCZ7481) 0.011 0-0.300 [facility] CenterCreatine Kinase MM6769-74-22 05:48:00* Test Item Value Reference Range Interpretation Comments Creatine Kinase MB (test code = 88442-3) 1.70 0-5.0 [facility] CenterTrreg[facility] H0885-08-33 05:48:00* Test Item Value Reference Range Interpretation Comments Troponin I (test code = DYV9409) 0.011 0-0.300 [facility] CenterCreatine Iwjpga0112-11-66 05:41:00* Test Item Value Reference Range Interpretation Comments Creatine Kinase (test code = 2157-6) 77 30-200 [facility] CenterCreatine Rctysx8437-41-46 05:41:00* Test Item Value Reference Range Interpretation Comments Creatine Kinase (test code = 2157-6) 77 30-200 [facility] CenterProthrombin Psiz0913-42-21 05:29:00* Test Item Value Reference Range Interpretation Comments Prothrombin Time (test code = 5902-2) 12.8 11.9-14.5 [facility] CenterProthromb Time International Ratio 2019-01-03 05:29:00* Test Item Value Reference Range Interpretation Comments Prothromb Time International Ratio (test code = 6301-6) 0.92 Oral Anticoagulant Therapy INR Values:1. Low Intensity Therapy 1.5 - 2.02 . Moderate Intensity Therapy 2.0 - 3.03. High Intensity Therapy(1) 2.5 - 3. 54. High Intensity Therapy(2) 3.0 - 4.05. Panic Value INR > 5.0 [facility] CenterActivated Partial Thromboplast Time 2019-01-03 05:29:00* Test Item Value Reference Range Interpretation Comments Activated Partial Thromboplast Time (test code = 01166-5) 22.5 23.8-35.[address] [facility] CenterProthrombin Sjga8184-47-08 05:29:00* Test Item Value Reference Range Interpretation Comments Prothrombin Time (test code = 5902-2) 12.8 11.9-14.5 [facility] CenterProthromb Time International Ratio 2019-01-03 05:29:00* Test Item Value Reference Range Interpretation Comments Prothromb Time International Ratio (test code = 6301-6) 0.92 Oral Anticoagulant Therapy INR Values:1. Low Intensity Therapy 1.5 - 2.02 . Moderate Intensity Therapy 2.0 - 3.03. High Intensity Therapy(1) 2.5 - 3. 54. High Intensity Therapy(2) 3.0 - 4.05. Panic Value INR > 5.0 [facility] CenterActivated Partial Thromboplast Time 2019-01-03 05:29:00* Test Item Value Reference Range Interpretation Comments Activated Partial Thromboplast Time (test code = 04805-8) 22.5 23.8-35.[address] [facility] CenterCHEST SINGLE (PORTABLE)2019-01-03 05:04:00 [place] [address] Patient Name: CHARLOTTE MARTINEZ MR #: [id number] : 1940 Age/Sex: 78/M Req #: [id number] Adm Physician: Ordered by: SHIELA DASH MD Report #: [id number] Location: ER Room/Bed: Procedure: [id number] DX/CHEST [...] and mild interstitial edema. Signed by: Dr. Gisell virgen MD on 01/03/2019 5:18 AM Dictated By: GISELL MITCHELL MD 7 Transcribed By: HARRIS on 517 COPY TO: SHIELA DASH MD CT CHEST W9638-00-84 12:28:00 [place] [address] Patient Name: CHARLOTTE MARTINEZ MR #: [id number] : 1940 Age/Sex: 78/M Req #: [id number] Adm Physician: Ordered by: JORDYN IRENE MD Report #: [id number] Location: CT Room/Bed: Procedure: [id number] CT/CT C HEST W Exam Date: 01/02/19 [...] COPY TO: JORDYN YAN MD CT ABDOMEN [id number] 12:28:00 [place] [address] Patient Name: CHARLOTTE MARTINEZ MR #: [id number] : 1940 Age/Sex: 78/M Req #: [id number] Adm Physician: Ordered by: JORDYN IRENE MD Report #: [id number] Location: CT Room/Bed: Procedure: [id number] CT/CT A SOCOOMEN W Exam Date: 01/02/19 Exam Time: 1200 [...] 01/02/19 1256 COPY TO: JORDYN IRENE MD Urine Bifuy1691-93-64 23:13:00* Test Item Value Reference Range Interpretation Comments Urine Color (test code = 5778-6) YELLOW YELLOW [facility] CenterUrine Sedocyg1861-81-61 23:13:00* Test Item Value Reference Range Interpretation Comments Urine Clarity (test code = 31921-6) CLEAR CLEAR [facility] CenterUrine Specific Uihauvb5177-25-18 23:13:00 * Test Item Value Reference Range Interpretation Comments Urine Specific [place] (test code = 5811-5) 1.015 1.010-1.[address] [facility] CenterUrine tJ1976-81-54 23:13:00* Test Item Value Reference Range Interpretation Comments Urine pH (test code = 78136-3) 8 5-[address] [facility] CenterUrine Leukocyte Svlsbhrc1909-08-17 23:13:00* Test Item Value Reference Range Interpretation Comments Urine Leukocyte Esterase (test code = 5799-2) NEGATIVE NEGATIVE [facility] CenterUrine Iliclkz3798-36-99 23:13:00* Test Item Value Reference Range Interpretation Comments Urine Nitrite (test code = 15961-3) NEGATIVE NEGATIVE [facility] CenterUrine Wrhgowd4989-81-40 23:13:00* Test Item Value Reference Range Interpretation Comments Urine Protein (test code = 5804-0) 2+ NEGATIVE H [facility] CenterUrine Glucose (UA)2018-01-31 23:13:00* Test Item Value Reference Range Interpretation Comments Urine Glucose (UA) (test code = 2349-9) 3+ NEGATIVE H [facility] CenterUrine Lcivhud9052-10-18 23:13:00* Test Item Value Reference Range Interpretation Comments Urine Ketones (test code = 20843-4) NEGATIVE NEGATIVE [facility] CenterUrine Qresfzqcdbng7363-50-38 23:13:00* Test Item Value Reference Range Interpretation Comments Urine Urobilinogen (test code = 18004-8) 0.2 0.2-1 [facility] CenterUrine Tknyxovfa2960-11-34 23:13:00* Test Item Value Reference Range Interpretation Comments Urine Bilirubin (test code = 1978-6) NEGATIVE NEGATIVE [facility] CenterUrine Taxnw9582-88-77 23:13:00* Test Item Value Reference Range Interpretation Comments Urine Blood (test code = 43862-4) 1+ NEGATIVE H [facility] CenterUrine FBB1907-53-68 23:13:00* Test Item Value Reference Range Interpretation Comments Urine WBC (test code = 5821-4) 11-20 0-[address] [facility] CenterUrine ZTU3936-90-41 23:13:00* Test Item Value Reference Range Interpretation Comments Urine RBC (test code = 74315-8) 6-10 0-[address] [facility] CenterUrine Wlqmrphf8144-42-72 23:13:00* Test Item Value Reference Range Interpretation Comments Urine Bacteria (test code = 51644-1) RARE NONE [facility] CenterUrine Epithelial Jpzbq3805-31-26 23:13:00 * Test Item Value Reference Range Interpretation Comments Urine Epithelial Cells (test code = 10511-2) RARE NONE [facility] CenterUrine Ajpui9557-06-38 23:13:00* Test Item Value Reference Range Interpretation Comments Urine Mucus (test code = 8247-9) RARE RARE [facility] CenterCHEST 2 JCZAV6346-38-20 22:56:00 [place] [address] Patient Name: CHARLOTTE MARTINEZ MR #: [id number] : Age/Sex: 77/M Req #: [id number] Adm Physician: Ordered by: TALIA BIRMINGHAM MD Report #: [id number] Location: ER Room/Bed: Procedure: [id number] DX/CHEST 2 VIEWS Exam Date: Exam Time: [...] By: HARRIS on 01/31/182257 COPY TO: TALIA BIRMINGHAM MD Creatine Kinase [id number] 22:09:00* Test Item Value Reference Range Interpretation Comments Creatine Kinase MB (test code = 63031-1) 1.50 0-5.0 [facility] CenterTroponin P0836-35-02 22:09:00* Test Item Value Reference Range Interpretation Comments Troponin I (test code = WVI3985) -0.001 0-0.300 [facility] Qsmwh4479-68-53 22:01:00* Test Item Value Reference Range Interpretation Comments Sodium Level (test code = 2951-2) 138 136-145 [facility] CenterPotassium Dmtce8514-21-73 22:01:00* Test Item Value Reference Range Interpretation Comments Potassium Level (test code = 2823-3) 4.3 3.5-5.1 [facility] CenterChloride Powdb8628-32-85 22:01:00* Test Item Value Reference Range Interpretation Comments Chloride Level (test code = 2075-0) 99 98-107 [facility] CenterCarbon Dioxide Jqdja8194-62-68 22:01:00* Test Item Value Reference Range Interpretation Comments Carbon Dioxide Level (test code = 2028-9) 24 22-29 [facility] CenterAnion Xnw1269-30-54 22:01:00* Test Item Value Reference Range Interpretation Comments Anion Gap (test code = 63141-1) 19.3 8-[address] [facility] CenterBlood Urea Gvwiwodh6850-80-74 22:01:00* Test Item Value Reference Range Interpretation Comments Blood Urea Nitrogen (test code = 3094-0) 50 7-[address] [facility] CenterCreatinine2018-07-02 22:01:00* Test Item Value Reference Range Interpretation Comments Creatinine (test code = 2160-0) 9.66 0.72-1.[address] [facility] CenterBUN/Creatinine Ckwre6694-59-38 22:01:00* Test Item Value Reference Range Interpretation Comments BUN/Creatinine Ratio (test code = 3097-3) 5 6-[address] [facility] CenterEstimat Glomerular Filtration Rate 2018-01-31 22:01:00* Test Item Value Reference Range Interpretation Comments Estimat Glomerular Filtration Rate (test code = 67305-7) 5 >60 L Ranges were taken from the National Kidney Disease Education Program and the [facility] Kid[facility] Foundation literature.Reference ranges:60 or greater: Tqcsql85-85 ( for 3 consecutive months): Chronic kidney disease 15 or less: Kidney failureSt. Joseph Medical CenterGlucose Fwtrm4797-19-37 22:01:00* Test Item Value Reference Range Interpretation Comments Glucose Level (test code = RBH6144) 138 74-[address] [facility] CenterCalcium Jjvzn5552-67-46 22:01:00* Test Item Value Reference Range Interpretation Comments Calcium Level (test code = 71852-1) 8.7 8.4-10.2 [facility] CenterMagnesium Zcmrm3451-42-78 22:01:00* Test Item Value Reference Range Interpretation Comments Magnesium Level (test code = 69719-9) 2.0 1.3-2.1 [facility] CenterTotal Qufscjlrt9770-26-46 22:01:00* Test Item Value Reference Range Interpretation Comments Total Bilirubin (test code = 1975-2) 0.5 0.2-1.2 [facility] CenterAspartate Amino Transf (AST/SGOT) 2018-01-31 22:01:00* Test Item Value Reference Range Interpretation Comments Aspartate Amino Transf (AST/SGOT) (test code = Aspartate Amino Transf (AST/SGOT)) 13 5-34 [facility] CenterAlanine Aminotransferase (ALT/SGPT) 2018-01-31 22:01:00* Test Item Value Reference Range Interpretation Comments Alanine Aminotransferase (ALT/SGPT) (test code = 1742-6) 45 0-55 [facility] CenterTotal Ivajwwq6423-52-81 22:01:00* Test Item Value Reference Range Interpretation Comments Total Protein (test code = 2885-2) 7.6 6.5-8.1 [facility] CenterAlbumin2018-07-02 22:01:00* Test Item Value Reference Range Interpretation Comments Albumin (test code = 1751-7) 3.5 3.5-5.0 [facility] CenterGlobulin2018-07-02 22:01:00* Test Item Value Reference Range Interpretation Comments Globulin (test code = 45090-2) 4.1 2.3-3.[address] [facility] CenterAlbumin/Globulin Qgffb0369-39-22 22:01:00 * Test Item Value Reference Range Interpretation Comments Albumin/Globulin Ratio (test code = 1759-0) 0.9 0.8-2.0 [facility] CenterAlkaline Nkccdirpvjb9202-39-93 22:01:00* Test Item Value Reference Range Interpretation Comments Alkaline Phosphatase (test code = 6768-6) 72 40-150 [facility] CenterCreatine Dwqbvm9355-10-70 22:01:00* Test Item Value Reference Range Interpretation Comments Creatine Kinase (test code = 2157-6) 75 30-200 [facility] CenterProthrombin Zvpb3086-70-18 21:54:00* Test Item Value Reference Range Interpretation Comments Prothrombin Time (test code = 5902-2) 13.2 11.9-14.5 [facility] CenterProthromb Time International Ratio 2018-01-31 21:54:00* Test Item Value Reference Range Interpretation Comments Prothromb Time International Ratio (test code = 6301-6) 1.08 Oral Anticoagulant Therapy INR Values:1. Low Intensity Therapy 1.5 - 2.02 . Moderate Intensity Therapy 2.0 - 3.03. High Intensity Therapy(1) 2.5 - 3. 54. High Intensity Therapy(2) 3.0 - 4.05. Panic Value INR > 5.0 [facility] CenterActivated Partial Thromboplast Time 2018-01-31 21:54:00* Test Item Value Reference Range Interpretation Comments Activated Partial Thromboplast Time (test code = 39389-0) 24.1 23.8-35.5 [facility] CenterWhite Blood Kfmpe6993-32-01 21:49:00* Test Item Value Reference Range Interpretation Comments White Blood Count (test code = 6690-2) 18.64 4.8-10.[address] [facility] CenterRed Blood Ukfxk4895-41-34 21:49:00* Test Item Value Reference Range Interpretation Comments Red Blood Count (test code = 789-8) 3.89 4.3-5.[address] [facility] CenterHemoglobin2018-07-02 21:49:00* Test Item Value Reference Range Interpretation Comments Hemoglobin (test code = 90884-1) 11.2 14.0-18.[address] [facility] CenterHematocrit2018-07-02 21:49:00* Test Item Value Reference Range Interpretation Comments Hematocrit (test code = 4544-3) 34.1 38.2-49.[address] [facility] CenterMean Corpuscular Hvirih5792-73-06 21:49:00* Test Item Value Reference Range Interpretation Comments Mean Corpuscular Volume (test code = 787-2) 87.7 81-99 [facility] CenterMean Corpuscular Czhkysfadp7544-54-83 21:49:00* Test Item Value Reference Range Interpretation Comments Mean Corpuscular Hemoglobin (test code = 785-6) 28.8 28-32 [facility] CenterMean Corpuscular Hemoglobin Concent 2018-01-31 21:49:00* Test Item Value Reference Range Interpretation Comments Mean Corpuscular Hemoglobin Concent (test code = 786-4) 32.8 31-35 [facility] CenterRed Cell Distribution Kyrdz0149-52-36 21:49:00* Test Item Value Reference Range Interpretation Comments Red Cell Distribution Width (test code = 95427-7) 18.9 11.7 -14.[address] [facility] CenterPlatelet Pjfkn9664-10-21 21:49:00* Test Item Value Reference Range Interpretation Comments Platelet Count (test code = 777-3) 156 140-360 [facility] CenterNeutrophils (%) (Auto)2018-01-31 21:49:00 * Test Item Value Reference Range Interpretation Comments Neutrophils (%) (Auto) (test code = 00326-8) 21.3 38.7-80.[address] [facility] CenterLymphocytes (%) (Auto)2018-01-31 21:49:00 * Test Item Value Reference Range Interpretation Comments Lymphocytes (%) (Auto) (test code = 736-9) 74.5 18.0-39.[address] [facility] CenterMonocytes (%) (Auto)2018-01-31 21:49:00* Test Item Value Reference Range Interpretation Comments Monocytes (%) (Auto) (test code = 5905-5) 2.5 4.4-11.[address] [facility] CenterEosinophils (%) (Auto)2018-01-31 21:49:00 * Test Item Value Reference Range Interpretation Comments Eosinophils (%) (Auto) (test code = 713-8) 1.1 0.0-6.0 [facility] CenterBasophils (%) (Auto)2018-01-31 21:49:00* Test Item Value Reference Range Interpretation Comments Basophils (%) (Auto) (test code = 706-2) 0.3 0.0-1.0 [facility] CenterIM GRANULOCYTES %2018-01-31 21:49:00* Test Item Value Reference Range Interpretation Comments IM GRANULOCYTES % (test code = IM GRANULOCYTES %) 0.3 0.0- 1.0 [facility] CenterNeutrophils # (Auto)2018-01-31 21:49:00* Test Item Value Reference Range Interpretation Comments Neutrophils # (Auto) (test code = 751-8) 4.0 2.1-6.9 [facility] CenterLymphocytes # (Auto)2018-01-31 21:49:00* Test Item Value Reference Range Interpretation Comments Lymphocytes # (Auto) (test code = 48109-3) 13.9 1.0-3.[address] [facility] CenterMonocytes # (Auto)2018-01-31 21:49:00* Test Item Value Reference Range Interpretation Comments Monocytes # (Auto) (test code = 742-7) 0.5 0.2-0.8 [facility] CenterEosinophils # (Auto)2018-01-31 21:49:00* Test Item Value Reference Range Interpretation Comments Eosinophils # (Auto) (test code = 711-2) 0.2 0.0-0.4 [facility] CenterBasophils # (Auto)2018-01-31 21:49:00* Test Item Value Reference Range Interpretation Comments Basophils # (Auto) (test code = 704-7) 0.1 0.0-0.1 [facility] CenterAbsolute Immature Granulocyte (auto 2018-01-31 21:49:00* Test Item Value Reference Range Interpretation Comments Absolute Immature Granulocyte (auto (mojgan t code = Absolute Immature Granulocyte (auto) 0.05 0-0.1 [facility] CenterBedside Iusopkq2195-77-38 21:11:00* Test Item Value Reference Range Interpretation Comments Bedside Glucose (test code = 34259-2) 131 70-120 H Meter ID: [id number]. Joseph Medical CenterCBC W/PLT COUNT & AUTO BMOWCJEIFGQG7768-32-80 13:38:00* Test Item Value Reference Range Interpretation [...] 0 /100 WBC 0 -0 BASIC METABOLIC XRPDF1175-33-55 13:02:00* Test Item Value Reference Range Interpretation [...] IS NOT APPLICABLE FOR DIALYSIS PATIENTS. PROTHROMBIN TIME/GRH0662-86-53 12:24:00* Test Item Value Reference Range Interpretation Comments PROTIME (BEAKER) (test code = 759) 15.4 seconds 11.7-14.7 H INR (BEAKER) (test code = 370) 1.2 <=5.9 RECOMMENDED COUMADIN/WARFARIN INR THERAPY RANGESSTANDARD DOSE: 2.0 - 3.0 Inclu eileen: PROPHYLAXIS for venous thrombosis, systemic embolization; TREATMENT for dorothea ous thrombosis and/or pulmonary embolus.HIGH RISK: Target INR is 2.5-3.5 for pat ients with mechanical heart valves.GLUCOSE-STAT HDQ6034-89-52 11:55:00* Test Item Value Reference Range Interpretation Comments GLUCOSE RANDOM (BEAKER) (test code = 652) 114 mg/dL 70-110 H POTASSIUM-STAT XKI0317-51-56 11:53:00* Test Item Value Reference Range Interpretation Comments POTASSIUM (BEAKER) (test code = 379) 4.3 meq/L 3.6-5.5 HGB/HCT (H&H) - STAT JQD1679-16-99 11:53:00* Test Item Value Reference Range Interpretation Comments HEMOGLOBIN (BEAKER) (test code = 410) 13.5 g/dL 13.0-16.8 HEMATOCRIT (BEAKER) (test code = 411) 40.0 % 40.0-50.0 [facility] Population(s) Ictjv5286-06-72 10:12:00* Test Item Value Reference Range Interpretation Comments [facility] Population(s) Gated (test code = 76498-6) Cell Pop ulation Population Analysis [facility] Nmavuvefipixca3990-71-10 12:22:00* Test Item Value Reference Range Interpretation Comments [facility] Interpretation (test code = 96210-8) Interpretatio n: Peripheral Blood: No evidence of paroxysmal nocturnal hemoglobinuria (PNH). [facility] Jrmrgkh1209-74-41 12:22:00* Test Item Value Reference Range Interpretation Comments [facility] Comment (test code = 66026-3) Comment: At the sen sitivity level of this assay (typically 0.01-0.1%),these results do not support a diagnosis of paroxysmal nocturnal hemoglobinuria (PNH). Correlation with all available clinical,laboratory, and morphologic data is recommended. (sensitivity typically 0.01-0.1%; lower limit of detection dependent on number of cells present and events acquired, typically 90,000+ events acquired) [facility] Qjxqwglp1992-28-53 12:22:00* Test Item Value Reference Range Interpretation Comments [facility] Specimen (test code = 83548-8) Specimen: Peripheral Blood [facility] Submitting Bcfkymsyp6351-12-87 12:22:00* Test Item Value Reference Range Interpretation Comments [facility] Submitting Diagnosis (test code = 38118-8) Submitt ed Dx: Evaluation for paroxysmal nocturnal hemoglobinuria (PNH) [facility] Svrqxhbhg5841-41-28 12:22:00* Test Item Value Reference Range Interpretation Comments [facility] Viability (test code = 59133-7) Viability: 79% (7AAD exclusion ) [facility] Hugcjxadxtrz0802-26-96 12:22:00* Test Item Value Reference Range Interpretation Comments [facility] Granulocytes (test code = 18385-4) Granulocytes: No GPI- anchor deficiency [facility] Eefhwqwud8770-39-08 12:22:00* Test Item Value Reference Range Interpretation Comments [facility] Monocytes (test code = 64028-0) Monocytes: No GPI-anchor defici ency [facility] Antibodies Iefustnjj3253-18-59 12:22:00* Test Item Value Reference Range Interpretation Comments [facility] Antibodies Performed (test code = 40655-5) Antibod ies Performed: CD14, CD15, CD24, CD45, CD64, FLAER [facility] Clinical Gmxocehrdnl7395-63-49 12:22:00* Test Item Value Reference Range Interpretation Comments [facility] Clinical Information (test code = 74718-1) Comment : This test was developed and its performance characteristics determined by [facility]. It has not been cleared or approved by the Food and Drug Administration (FDA). The FDA has determined that such clearance or approval is not necessary. Any image(s) that accompany this report is/are a logistics service representative image(s) only and should not be used to render a diagnosis. Director Review Reviewed By: Venu Valdovinos M.D. [facility] Red Blood Nkbwp6975-35-31 12:18:00* Test Item Value Reference Range Interpretation Comments [facility] Red Blood Cells (test code = 34317-4) Red Blood Ce lls: SPRCS CD59+ (type I cells, no GPI-deficiency): 99.99% of red blood cells Diminished CD59 (type II cells, partial GPI-deficiency): 0.00% of red blood cells CD59-(type III cells, complete GPI-deficiency): 0.00% of red blood cells [facility] Flow Bfirtnteu2942-29-58 12:18:00* Test Item Value Reference Range Interpretation Comments [facility] Flow Cytometry (test code = [facility] Flow Cytometry) Di kimmy Review Reviewed By: Johny Joel M.D. [facility] CenterBlood Tzesdxz9115-19-78 05:23:00* Test Item Value Reference Range Interpretation Comments Blood Culture (test code = 83871261) NO GROWTH AFTER 5 DAYS, FINAL REPORT [facility] CenterAlbumin (PEP)2017-08-13 14:57:00* Test Item Value Reference Range Interpretation Comments Albumin (PEP) (test code = Albumin (PEP)) 2.2 2.9-4.[address] [facility] CenterAlpha-1-Yhgwxrsio0412-27-09 14:57:00* Test Item Value Reference Range Interpretation Comments Mjmcv-2-Oolpplgtg (test code = 2865-4) 0.4 0.0-0.4 [facility] CenterAlpha-2-Wtbgehpjs9202-35-49 14:57:00* Test Item Value Reference Range Interpretation Comments Fwmik-5-Rointxebr (test code = 2868-8) 0.8 0.4-1.0 [facility] CenterImmunofixation Sqkqkzrplgswgll7376-36-20 14:57:00* Test Item Value Reference Range Interpretation Comments Immunofixation Electrophoresis (test code = 14920-1) Comment . An apparent normal immunofixation pattern.[facility] CenterBeta Gamma Gwthchge7834-41-85 14:57:00* Test Item Value Reference Range Interpretation Comments Beta Gamma Globulin (test code = 2871-2) 0.7 0.7-1.3 [facility] CenterGamma Cfadlatrw7478-03-04 14:57:00* Test Item Value Reference Range Interpretation Comments Gamma Globulins (test code = 2874-6) 0.6 0.4-1.8 [facility] CenterTotal Protein (PEP)2017-08-13 14:57:00* Test Item Value Reference Range Interpretation Comments Total Protein (PEP) (test code = 2885-2) 4.7 6.0-8.[address] [facility] CenterGlobulin2018-01-12 14:57:00* Test Item Value Reference Range Interpretation Comments Globulin (test code = 21520-5) 2.5 2.2-3.9 [facility] CenterKappa Light Chain Qhrwyjto7397-47-39 14:57:00* Test Item Value Reference Range Interpretation Comments Bear Grass Light Chain Analysis (test code = 97611-2) 20.8 3.3-[address] [facility] CenterLambda Light Chain Ikyvlxyx5048-50-73 14:57:00* Test Item Value Reference Range Interpretation Comments Lambda Light Chain Analysis (test code = 78631-4) 24.2 5.7- 26.3 [facility] CenterTotl Bear Grass/Lambda Light Chain Ratio 2017-08-13 14:57:00* Test Item Value Reference Range Interpretation Comments Totl Bear Grass/Lambda Light Chain Ratio (test code = 40484-7) 0.86 0.26-1.65 [facility] CenterProtein Electrophoresis B-Eyqgq8484-57Qccgg6508-45-82 14:57:00* Test Item Value Reference Range Interpretation Comments Protein Electrophoresis M-Juan (test code = 69377-1) Not Observ ed Not Observed [facility] CenterAlbumin/Globulin Pjczr1835-95-68 14:57:00 * Test Item Value Reference Range Interpretation Comments Albumin/Globulin Ratio (test code = 1759-0) 0.9 0.7-1.7 [facility] CenterProtein Electrophoresis Plsr1983-06-15 14:57:00* Test Item Value Reference Range Interpretation Comments Protein Electrophoresis Note (test code = Protein Electropho resis Note) Comment . Protein electrophoresis scan will follow via computer,mail, or aircraft metalsmith delivery. [facility] CenterImmunoglobulin H3444-74-92 14:57:00* Test Item Value Reference Range Interpretation Comments Immunoglobulin A (test code = 2458-8) 182 61-437 [facility] CenterImmunoglobulin N3397-15-47 14:57:00* Test Item Value Reference Range Interpretation Comments Immunoglobulin G (test code = 2465-3) 079 496-[address] [facility] CenterImmunoglobulin J2898-94-45 14:57:00* Test Item Value Reference Range Interpretation Comments Immunoglobulin M (test code = 2472-9) 81 15-143 Performed at: - [facility] [address] [id number] Director: Gregor Hernandez MD, Phone: [phone] at: - [facility] [address] [id number] Director: REKHA Robles MD, [facility] ne: [phone]. Joseph Medical CenterDifferential Total Cells Gxdzpgw0790-32-87 08:07:00* Test Item Value Reference Range Interpretation Comments Differential Total Cells Counted (test code = Differen tial Total Cells Counted) 100 [facility] CenterNeutrophils % (Manual)2017-08-13 08:07:00 * Test Item Value Reference Range Interpretation Comments Neutrophils % (Manual) (test code = 42964-5) 16 40-[address] [facility] CenterLymphocytes % (Manual)2017-08-13 08:07:00 * Test Item Value Reference Range Interpretation Comments Lymphocytes % (Manual) (test code = 737-7) 78 19-[address] [facility] CenterMonocytes % (Manual)2017-08-13 08:07:00* Test Item Value Reference Range Interpretation Comments Monocytes % (Manual) (test code = 744-3) 2 3.4-9.[address] [facility] CenterEosinophils % (Manual)2017-08-13 08:07:00 * Test Item Value Reference Range Interpretation Comments Eosinophils % (Manual) (test code = 714-6) 2 0-7 [facility] CenterReactive Iftblgrjzue7290-07-13 08:07:00* Test Item Value Reference Range Interpretation Comments Reactive Lymphocytes (test code = 64831-9) 1 [facility] CenterBlast Cells %2017-08-13 08:07:00* Test Item Value Reference Range Interpretation Comments Blast Cells % (test code = 05288-8) 1 [facility] CenterPlatelet Gxrydebw5423-33-20 08:07:00* Test Item Value Reference Range Interpretation Comments Platelet Estimate (test code = 73531-4) ADEQUATE [facility] CenterPlatelet Morphology Cmhixva3609-43-37 08:07:00* Test Item Value Reference Range Interpretation Comments Platelet Morphology Comment (test code = 89882-4) NORMAL [facility] CenterHypochromasia2018-01-12 08:07:00* Test Item Value Reference Range Interpretation Comments Hypochromasia (test code = 728-6) SLIGHT [facility] CenterAnisocytosis2018-01-12 08:07:00* Test Item Value Reference Range Interpretation Comments Anisocytosis (test code = 702-1) SLIGHT [facility] CenterRed Cell Morphology Hdweruh9067-18-67 08:07:00* Test Item Value Reference Range Interpretation Comments Red Cell Morphology Comment (test code = 6742-1) NORMAL [facility] CenterUrine Random Total Suzarfi9850-36-61 13:48:00* Test Item Value Reference Range Interpretation Comments Urine Random Total Protein (test code = 2888-6) 101.2 1-[address] [facility] CenterUrine Mpzkdfwhdu6614-60-08 13:48:00* Test Item Value Reference Range Interpretation Comments Urine Creatinine (test code = 2161-8) 58.66 63-[address] [facility] CenterUrine Creatinine 24 Hrqh9362-89-53 13:48:00* Test Item Value Reference Range Interpretation Comments Urine Creatinine 24 Hour (test code = 2162-6) 6917 150-2578 [facility] CenterCreatinine Obbhbsztt5428-78-82 13:48:00* Test Item Value Reference Range Interpretation Comments Creatinine Clearance (test code = 46982-9) 17 95-[address] [facility] CenterUrine Total Protein 24 Cwrp7712-46-62 13:48:00* Test Item Value Reference Range Interpretation Comments Urine Total Protein 24 Hour (test code = 53765-4) 2074.6 50-[address] [facility] CenterUrine Collection Gvve8165-33-28 13:47:00 * Test Item Value Reference Range Interpretation Comments Urine Collection Time (test code = 19144-1) 24 [facility] CenterUrine Total Ljnwca0542-16-38 13:47:00* Test Item Value Reference Range Interpretation Comments Urine Total Volume (test code = 34686-4) 2050 800-[address] [facility] [facility] CenterFerritin2018-01-10 11:03:00* Test Item Value Reference Range Interpretation Comments Ferritin (test code = 2276-4) 105.23 21.81-274.66 [facility] CenterMetamyelocytes %2017-08-11 07:27:00* Test Item Value Reference Range Interpretation Comments Metamyelocytes % (test code = 740-1) 1 0-[address] [facility] CenterPoikilocytosis2018-01-10 07:27:00* Test Item Value Reference Range Interpretation Comments Poikilocytosis (test code = 779-9) SLIGHT [facility] CenterPhosphorus Ehjme3645-35-01 17:34:00* Test Item Value Reference Range Interpretation Comments Phosphorus Level (test code = BYG7701) 4.0 2.3-4.7 [facility] CenterDirect Gemxefcnj7806-89-01 17:34:00* Test Item Value Reference Range Interpretation Comments Direct Bilirubin (test code = 94964-5) 0.1 0.0-5.0 [facility] CenterPathology Consult Kpgqccun5684-45-72 15:55:00* Test Item Value Reference Range Interpretation Comments Pathology Consult Specimen (test code = 08377-9) See comment PATH REVIEW: CBC and peripheral smear are reviewed. Agree w/ manual differential .The smear is showing Lymphocytosis w/ mostly dysplastic and no increased blasts .There is associated granulocytopenia w/ normocytic normochromic anemia.IMPRESSI ON: Chronic Lymphocytic LeukemiaReviewed by: [facility] HospitalInfluenza Virus Types A,B Jucawrs7632-04-86 11:35:00* Test Item Value Reference Range Interpretation Comments Influenza Virus Types A,B Antigen (test code = 90653-8) NEGATIVE NEGATIVE [facility] [address] [address] Patient Name: CHARLOTTE MARTINEZ MR #: [id number] : 1940 Age/Sex: 76/M Req #: [id number] Adm Physician: STEVEN CHAN MD Ordered by: SANDRA AUSTIN, KAREL AUSTIN Report #: [id number] Location : [facility] Room/Bed: [place] [address] Procedure: [id number] CT/ CT ABDOMEN/PELVIS WO Exam Date: 08/10/17 [...] COPY TO: KAREL FLORES CHEST 2 VIEWS [place] [address] Patient Name: CHARLOTTE MARTINEZ MR #: [id number] : 1940 Age/Sex: 76/M Req #: [id number] Adm Physician: Ordered by: TALIA BIRMINGHAM MD Report #: [id number] Location: ER Room/Bed: Procedure: [id number] DX/CHEST 2 VIEWS Exam Date: 04/19 Exam [...] 5:03 AM Dictated By: YANG SESAY MD 050 Transcribed By: HARRIS on 08/10/17 0503 COPY TO: TALIA BIRMINGHAM MD US RENAL RETROPERITONEAL COMP [place] [address] Patient Name: CHARLOTTE MARTINEZ MR #: [id number] : 1940 Age/Sex: 76/M Req #: [id number] Adm Physician: STEVEN HAWKINS MD Ordered by: KAREL FLORES MD, MD Report #: [id number] Location: [facility] Room/Bed: [place] [address] Procedure: [id number] US/ US RENAL RETROPERITONEAL COMP Exam Date: 08/10/17 Ex am Time: 1045 REPORT STATUS: Signed PROCEDURE: US RETROPERITONEAL ( K VARUNNEY ). COMPARISON: CT abdomen and pelvis 10/31/2016. [...]
[2019-12-31] MEDS ORDERED: DEXAMETHASONE SOD PHOS 10 MG/1 ML VIAL IV STA (17:00)
[2019-12-31] MEDS ORDERED: SODIUM CHLORIDE 0.9% 250ML 250 ML IV ONE (17:00)
[2019-12-31] MEDS ORDERED: DIPHENHYDRAMINE HCL INJ 50 MG/ML VIAL IV NR (17:00)
--- NOTE | 2019-12-31 17:15 | NUR ---
Informed patient and patients daughter who states that she has power of regulatory attorney that patient would most likely have to have a blood transfusion, was given verbal consent that patient accepts blood tranfusion if need be.
--- NOTE | 2019-12-31 18:00 | NUR ---
Blood consent completed and signed with Veronica KC from verbal order by patients daughter.
--- NOTE | 2019-12-31 18:10 | NUR ---
Patient cleaned and placed on a new brief due to incontinence of stool. While changing patient noticed a possible stage 2 pressure ulcer to patients sacral area.
--- NOTE | 2019-12-31 18:26 | NUR ---
Attempted to call [facility] in [facility] to get patients medication list. Unable to get in contact with a nurse at the moment.
[2019-12-31 18:36] LABS: BASOPHILS % 0.3 % (0.0-1.0); EOSINOPHILS # (AUTO) 0.1 (0.0-0.4); EOSINOPHILS % 1.1 % (0.0-6.0); LYMPHOCYTES # (AUTO) 2.6 (1.0-3.2); LYMPHOCYTES % 25.2 % (18.0-39.1); MEAN CORPUSCULAR HEMOGLOBIN 29.3 pg (28-32); MEAN CORPUSCULAR HGB CONC 31.6 g/dL (31-35); MEAN CORPUSCULAR VOLUME 92.9 fL (81-99); MONOCYTES # (AUTO) 0.7 (0.2-0.8); MONOCYTES % 6.9 % (4.4-11.3); NEUTROPHILS # (AUTO) 6.7 (2.1-6.9); NEUTROPHILS % 64.9 % (38.7-80.0); PLATELET COUNT 263 x10e3/uL (140-360); RED BLOOD COUNT 2.25 x10e6/uL (4.3-5.7); RED CELL DISTRIBUTION WIDTH 13.5 % (11.7-14.4)
[2019-12-31 18:39] LABS: HEMATOCRIT 20.9 % (38.2-49.6); HEMOGLOBIN 6.6 g/dL (14.0-18.0)
[2019-12-31 18:42] LABS: INR 1.11
[2019-12-31 18:43] LABS: PARTIAL THROMBOPLASTIN TIME 30.3 seconds (23.8-35.5)
[2019-12-31] MEDS ORDERED: ONDANSETRON HCL INJ 2MG/ML 2ML 2 MG/ML VIAL IV PRN (18:45)
[2019-12-31 18:52] LABS: ALBUMIN 1.3 g/dL (3.5-5.0); ALBUMIN/GLOBULIN RATIO 0.3 (0.8-2.0); ALKALINE PHOSPHATASE 47 IU/L (40-150); BLOOD UREA NITROGEN 50 mg/dL (7-26); BUN/CREATININE RATIO 7 (6-25); CALCIUM 7.8 mg/dL (8.4-10.2); CARBON DIOXIDE 26 mmol/L (22-29); CHLORIDE 99 mmol/L (98-107); CREATINE KINASE 11 IU/L (30-200); CREATININE, SERUM 6.82 mg/dL (0.72-1.25); EST GLOMERULAR FILTRATION RATE 8 ML/MIN (60-); GLUCOSE 96 mg/dL (74-118); MAGNESIUM 1.9 MG/DL (1.3-2.1); SODIUM 136 mmol/L (136-145)
--- NOTE | 2019-12-31 18:58 | NUR ---
report given to Blair KC
[2019-12-31 19:12] LABS: ALANINE AMINOTRANSFERASE < 6 IU/L (0-55)
--- NOTE | 2019-12-31 19:19 | Emergency Department Note ---
History of Present Illnes History of Present Illness Chief Complaint: sent by dr parr(pcp) b/c hgb 7.2 and gi bleed History of Present Illness This is a 79 year old male . 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 Arrival Mode: NATIONAL EMS Treatment DEPUTY SHERIFF CUSTODY: See EMS Report History limited by: condition of the patient (stable) Capital Equipment Specialist Required: No (normal) Onset (how long ago): hour(s) (8) Location: n/a Quality: n/a Radiation: non-radiation Severity: moderate Onset quality: gradual Timing of current episode: intermittent Progression: waxing and waning Chronicity: recurrent Context: recent illness (pt d/lonny 3 days ago dx rgt knee septic joint and gi bleed in which dr trino gamez saw pt and stopped the bleeding) Relieving factors: none Exacerbating factors: none Associated symptoms: denies other symptoms Treatments prior to arrival: none Past Medical/Family History Physician Review I have reviewed the patient's past medical and family history. Any updates have been documented here. Past Medical History Recent Fever: No Clinical Suspicion of Infectio: No New/Unexplained Change in Ment: No Past Medical History: Hypertension, Diabetes, Cancer, ESRD, Hemodyalisis, DVT/PE, Chronic Kidney Disease Other Medical History: Pulmonary embolism Ulcerative colitis Arthitis ACQUIRED ANGIOEDEMA DX 11/2018 DIALYSIS M/W/F [facility] Past Surgical History: Cataract Removal Other Surgery: CATARACT SURGERY FISTULA L ARM Social History Smoking Cessation: Never Smoker Counseling Performed: No Alcohol Use: None Any Illegal Drug Use: No TB Exposure/Symptoms: No Physically hurt or threatened: No Other Last Tetanus: UTD Any Pre-Existing Lines (PICC,: No Is patient up to date on immun: Yes Last Flu: utd Last Pneumovax: utd Review of Systems Review of Systems Constitutional: no symptoms EENTM: no symptoms Cardiovascular: no symptoms Respiratory: no symptoms Gastrointestinal: as per HPI Genitourinary: no symptoms Musculoskeletal: as per HPI, joint pain Neurological: no symptoms Psychological: no symptoms Endocrine: no symptoms Hematological/Lymphatic: no symptoms Review of other systems All other systems reviewed and negative. Physical Exam Related Data Allergies: Coded Allergies: No Known Allergies (Unverified , 10/31/16) Triage Vital Signs Vital Signs Date Time Temp Pulse Resp B/P (MAP) Pulse Ox O2 Delivery O2 Flow Rate FiO2 12/31/19 16:39 98.4 88 18 136/64 98 Vital signs reviewed: Yes Physical Exam CONSTITUTIONAL Constitutional: well-developed, well-nourished HENT HENT: normocephalic, atraumatic, oropharynx clear/moist, nose normal HENT L/R: left ext ear normal, right ext ear normal EYES Eyes: PERRL NECK Neck: ROM normal, supple, other (+pale conjunctiva) PULMONARY Pulmonary: effort normal, breath sounds normal CARDIOVASCULAR Cardiovascular: regular rhythm, heart sounds normal, capillary refill normal, normal rate GASTROINTESTINAL Abdominal: soft, nontender, bowel sounds normal, other (heme +) GENITOURINARY Genitourinary: exam deferred SKIN Skin: warm, dry, pale MUSCULOSKELETAL Musculoskeletal: ROM normal NEUROLOGICAL Neurological: alert, oriented x 3, no gross motor or sensory deficits PSYCHOLOGICAL Psychological: mood/affect normal, judgement normal Results Laboratory Result Diagram: 12/31/19 1702 Laboratory Laboratory Tests Test 12/31/19 17:43 12/31/19 17:04 Stool Occult Blood Positive (NEGATIVE) White Blood Count 10.25 x10e3/uL (4.8-10.8) Red Blood Count 2.25 x10e6/uL (4.3-5.7) Hemoglobin 6.6 g/dL (14.0-18.0) Hematocrit 20.9 % (38.2-49.6) Mean Corpuscular Volume 92.9 fL (81-99) Mean Corpuscular Hemoglobin 29.3 pg (28-32) Mean Corpuscular Hemoglobin Concent 31.6 g/dL (31-35) Red Cell Distribution Width 13.5 % (11.7-14.4) Platelet Count 263 x10e3/uL (140-360) Neutrophils (%) (Auto) 64.9 % (38.7-80.0) Lymphocytes (%) (Auto) 25.2 % (18.0-39.1) Monocytes (%) (Auto) 6.9 % (4.4-11.3) Eosinophils (%) (Auto) 1.1 % (0.0-6.0) Basophils (%) (Auto) 0.3 % (0.0-1.0) Neutrophils # (Auto) 6.7 (2.1-6.9) Lymphocytes # (Auto) 2.6 (1.0-3.2) Monocytes # (Auto) 0.7 (0.2-0.8) Eosinophils # (Auto) 0.1 (0.0-0.4) Basophils # (Auto) 0.0 (0.0-0.1) Absolute Immature Granulocyte (auto 0.16 x10e3/uL (0-0.1) Prothrombin Time 15.0 seconds (11.9-14.5) Prothromb Time International Ratio 1.11 Activated Partial Thromboplast Time 30.3 seconds (23.8-35.5) Lab results reviewed: Yes Diagnostics Tests Diagnostic test(s) reviewed: Yes (ekg nsr, hr 91, no ischemic changes, normal axis) Critical Care Time Subsequent provider I assumed direction of critical care for this patient from another provider of my specialty. Assessment & Plan Reassessment Reassessment dr parr notified at 1845hrs and will see pt. spoke to dr patten( dr trino gamez- gi) and he will have pt seen Assessment & Plan Final Impression: (1) ACUTE PEPTIC ULCER, SITE UNSPECIFIED, WITH HEMORRHAGE (2) ANEMIA, UNSPECIFIED Assessment & Plan additional dx chronic renal failure Last Vital Signs Date Time Temp Pulse Resp B/P (MAP) Pulse Ox O2 Delivery O2 Flow Rate FiO2 12/31/19 17:13 91 18 131/53 99 12/31/19 16:39 98.4 Home Meds Reported Medications Acetaminophen/Codeine* (TYLENOL # 3*) 1 Ea Tab, 1 TAB PO Q6H PRN for MODERATE PAIN (4-6) 12/14/19 Amlodipine Besylate (NORVASC) 2.5 Mg Tablet, 2.5 MG PO DAILY, TAB 12/14/19 Prednisone (PREDNISONE) 5 Mg Tablet, 5 MG PO DAILY, #30 TAB 12/14/19 Icatibant Acetate (FIRAZYR) 30 Mg/3 Ml Disp.syrin, 30 MG SC PRN 05/20/19 Folic Acid/Vitamin B Comp W-C (DIALYVITE 800 TABLET) 0.8 Mg Tablet, 1 TAB PO DAILY 05/20/19 Calcium Acetate (CALCIUM ACETATE) 667 Mg Capsule, 2 CAP PO TID 05/20/19 Ibrutinib (Imbruvica) 140 Mg Capsule, 140 MG PO HS TAKE ON EMPTY STOMACH 05/20/19 Allopurinol (ALLOPURINOL) 100 Mg Tablet, 100 MG PO DAILY, #30 TAB 05/20/19 MICHAEL PETERSON December 31, 2019 19:19
[2019-12-31] MEDS ORDERED: CEFEPIME 1GM/NS 0.9% 50 ML 50 ML IV STA (19:42)
[2019-12-31] MEDS ORDERED: VANCOMYCIN 1GM/NS 250 ML 250 ML IV ONE (19:45)
[2019-12-31] MEDS ORDERED: PANTOPRAZOLE 40 MG 10ML VIAL IV STA (20:22)
[2019-12-31] MEDS ORDERED: PROTONIX 200MG/SODIUM CHLORIDE 0.9% 250 ML BAG IV SCH (20:30)
[2019-12-31] MEDS ORDERED: SODIUM CHLORIDE 0.9% 250ML 250 ML ONE (20:32)
[2020-01-01] VITALS (10 sets, daily range): BP systolic 135–157; BP diastolic 55–80
[2020-01-01] MEDS ORDERED: PROTONIX 200MG/SODIUM CHLORIDE 0.9% 250 ML BAG IV SCH (00:30)
[2020-01-01] MEDS ORDERED: SODIUM CHLORIDE 0.9% 250ML 500 ML ONE (00:47)
[2020-01-01] MEDS ORDERED: NORCO 5-325 TA1 EACH PO (01:28)
[2020-01-01] MEDS ORDERED: LIDOPATCH1 EACH TOP (01:28)
[2020-01-01] MEDS ORDERED: AMIODARONE HCL200 MG PO (01:28)
[2020-01-01] MEDS ORDERED: MIDODRINE HCL5 MG PO (01:28)
[2020-01-01] MEDS ORDERED: ACETAMINOPHEN325 M1 PO (01:28)
[2020-01-01] MEDS ORDERED: QUESTRAN PACKET4 GM PO (01:28)
[2020-01-01] MEDS ORDERED: MEGESTROL400 MG/10 PO (01:28)
[2020-01-01] MEDS ORDERED: IMBRUVICA PO (01:28)
[2020-01-01] MEDS ORDERED: MIDODRINE HCL10 MG PO (01:31)
[2020-01-01] MEDS ORDERED: HUMULIN R100 UNIT/2 SC (01:32)
[2020-01-01] MEDS ORDERED: PANTOPRAZOLE SO40 MG PO (01:34)
[2020-01-01] MEDS ORDERED: SULFASALAZINE500 MG PO (01:34)
[2020-01-01] MEDS ORDERED: SUCRALFATE1 GM PO (01:34)
[2020-01-01 01:59] LABS: CREATINE KINASE MB 0.5 ng/mL (0-5.0)
[2020-01-01] MEDS ORDERED: PANTOPRAZOLE INJ 40 MG in SODIUM CHLORIDE 0.9% 50ML 50 ML IV SCH (02:30)
[2020-01-01] MEDS ORDERED: PANTOPRAZOLE 40 MG 10ML VIAL ONE (02:46)
--- NOTE | 2020-01-01 03:00 | Consultation ---
DATE OF CONSULTATION: 12/31/2019 GI Consult Note REASON FOR CONSULT: Recurrent melena x3 today. HISTORY OF PRESENTING ILLNESS: A 79-year-old very pleasant male, who is very well known to me from his last admission. He was recently discharged from this hospital 3 weeks ago. GI was consulted on his last admission, when he was admitted with septic arthritis. He has undergone I and D. Subsequently, he developed a melena and his hemoglobin dropped by 2 points from his baseline. It was around 6.8. He has end-stage renal disease. He gets dialysis 3 times a week. Upper endoscopy was performed by me, that showed multiple cratered gastric ulcer. However, he was treated with PPI. NSAIDs were avoided. During the same hospitalization, his hemoglobin continue to drop, therefore he had a repeat upper endoscopy as well as colonoscopy done by my associate, Dr. Stapleton. Upper endoscopy revealed the same cratered ulcer. It was not actively bleeding. No stigmata of bleeding were found. Colonoscopy, he was found to have some ascending colon ulcers, they were biopsied. There was a large rectal polyp, which were resected in piecemeal fashion. Biopsy of the stomach was positive for gastritis without any H pylori infection. Duodenal biopsy was positive for duodenitis. 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 The patient received a blood transfusion on last admission. His hemoglobin was 10.7 prior to discharge. He was discharged to [facility]. He had a dialysis today. Because of his melena, he was sent to the emergency room. Here, he was noted to be hemodynamically stable. He has not had any bowel movement in last 8-10 hours while being in the emergency room. Hemoglobin recorded was 6.6. He is going to receive 1 unit of packed red blood cells. REVIEW OF SYSTEMS: A 12-point system reviewed, symptomatology is limited to GI system. PAST MEDICAL HISTORY: End-stage renal disease on hemodialysis, septic arthritis, gastric ulcers, large rectal polyp, CLL. PAST SURGICAL HISTORY: AV fistula in the left upper arm. FAMILY HISTORY: Noncontributory. SOCIAL HISTORY: Lives in [facility]. No smoking, alcohol, or any illicit drug use. ALLERGIES: NO KNOWN DRUG ALLERGIES. HOME MEDICATIONS: 1. Acetaminophen with codeine. 2. Allopurinol. 3. Amlodipine. 4. Calcium acetate. 5. Folic acid. 6. Ibrutinib. 7. Icatibant acetate. 8. Prednisolone. PHYSICAL EXAMINATION: VITAL SIGNS: Temperature 98.4, pulse 88, respirations 18, blood pressure 136/64, oxygen saturation 98% on room air. GENERAL: Not in any apparent distress. HEENT: Oral mucosa is moist. Anicteric sclerae. CVS: S1, S2 regular. LUNGS: Bilaterally grossly clear. ABDOMEN: Soft, protuberant belly, nondistended, nontender. No palpable mass or hernia. EXTREMITIES: Warm. No leg edema. AV fistula in the right upper extremities. LABORATORY DATA: WBC 10.25, hemoglobin 6.6, hematocrit 20.9, and platelet count 92.9. Sodium 136, potassium 5.0, chloride 99, bicarb 26, BUN 50, creatinine 6.82, and glucose 96. Liver enzymes showed AST 7, ALT less than 6, total bilirubin 0.2, alkaline phosphatase 47. PT 15.0, INR 1.11. IMPRESSION: Melena, likely bleeding from peptic ulcer disease (gastric ulcer as well as duodenitis). Hemodynamically stable. PLAN: The patient was not on any PPI in his medication list. I am going to start him on Protonix 80 IV bolus followed by 8 mg an hour infusion. Monitor bowel movements. Transfuse to keep hemoglobin above 7. Be cautious with IV fluid resuscitation as the patient has end-stage renal disease, on dialysis. Adarsh Melo MD SA/ANTON /[id number]
[2020-01-01] MEDS ORDERED: PANTOPRAZOL 40MG/SOD CHL 0.9% 50 ML IV ONE (03:13)
[2020-01-01] MEDS ORDERED: LIDOCAINE 4% PATCH TP PRN (05:45)
[2020-01-01] MEDS ORDERED: ACETAMINOPHEN 325 MG TAB PO PRN (05:45)
--- NOTE | 2020-01-01 07:25 | NUR ---
patient endorsed to next shift for continuity of care, Dr. Sommer office called for consult.
[2020-01-01 08:55] LABS: BASOPHILS % 0.3 % (0.0-1.0); HEMATOCRIT 34.1 % (38.2-49.6); HEMOGLOBIN 11.3 g/dL (14.0-18.0); LYMPHOCYTES # (AUTO) 2.6 (1.0-3.2); LYMPHOCYTES % 21.8 % (18.0-39.1); MEAN CORPUSCULAR HEMOGLOBIN 29.4 pg (28-32); MEAN CORPUSCULAR HGB CONC 33.1 g/dL (31-35); MEAN CORPUSCULAR VOLUME 88.6 fL (81-99); MONOCYTES # (AUTO) 0.4 (0.2-0.8); MONOCYTES % 3.6 % (4.4-11.3); NEUTROPHILS # (AUTO) 8.7 (2.1-6.9); NEUTROPHILS % 72.4 % (38.7-80.0); PLATELET COUNT 248 x10e3/uL (140-360); RED BLOOD COUNT 3.85 x10e6/uL (4.3-5.7); RED CELL DISTRIBUTION WIDTH 14.2 % (11.7-14.4)
[2020-01-01] MEDS: ALLOPURINOL 100 MG TAB PO SCH (09:00)
[2020-01-01] MEDS: FOLIC ACID/CYANOCOB/PYRIDOXINE TAB PO SCH (09:00)
[2020-01-01] MEDS: SULFASALAZINE 500 MG TAB PO SCH ×4 (09:00→21:00)
[2020-01-01] MEDS: PANTOPRAZOL 40MG/SOD CHL 0.9% 50 ML IV SCH ×3 (09:08→19:54)
[2020-01-01 09:13] LABS: ANION GAP 18.9 mmol/L (8-16); CALCIUM 7.8 mg/dL (8.4-10.2); CREATININE, SERUM 7.21 mg/dL (0.72-1.25); POTASSIUM 5.9 mmol/L (3.5-5.1)
[2020-01-01 09:35] LABS: CREATINE KINASE MB 0.7 ng/mL (0-5.0)
--- NOTE | 2020-01-01 09:37 | Consultation ---
DATE OF CONSULTATION: 01/01/2020 HISTORY OF PRESENT ILLNESS: The patient is a 79-year-old male with history of end-stage renal disease, who was recently hospitalized with GI bleeding, also septic arthritis of the right knee. He was discharged few days ago and then returned with recurrent bleeding. Evaluation at that time of upper GI endoscopy revealed multiple gastric ulcers. He had a GI bleeding scan suggested bleeding of the area of the ileocecal valve and he had a colonoscopy, which revealed some ulcers in the ascending colon also. The patient denies abdominal pain. He has had no vomiting of blood, apparently, he was reported to have melena. He is hemodynamically stable at this time. PAST MEDICAL HISTORY: Significant for end-stage renal disease, recent septic arthritis, GI bleeding as above. PAST SURGICAL HISTORY: Previous surgery includes AV fistula and cataract surgery. MEDICATIONS: At home are pain medication, allopurinol, amlodipine, calcium, folic acid, ibrutinib, Icatibant acetate, prednisolone. ALLERGIES: HE HAS NO KNOWN ALLERGIES. FAMILY HISTORY: Noncontributory. SOCIAL HISTORY: The [facility]. He does not smoke cigarettes or drink alcohol. REVIEW OF SYSTEMS: As above. He only complains of some pain in the right leg. PHYSICAL EXAMINATION: GENERAL: The patient is awake and alert, VITAL SIGNS: Normal. Blood pressure is normal. HEENT: Sclerae is nonicteric. NECK: No masses. LUNGS: Equal breath sounds, are clear bilaterally. CARDIAC: Regular rate and rhythm with no murmur. ABDOMEN: Soft. There was no tenderness. No mass. No organomegaly. EXTREMITIES: There is an AV fistula present, which has a positive thrill. There is some edema of the right leg. LAB TESTS: Hemoglobin on admission was 6.6, hematocrit 20.9. Chemistries were elevated; BUN and creatinine were consistent with renal failure. ASSESSMENT: A 79-year-old male with gastrointestinal bleeding, is not clear whether there is upper or lower, he has melena. There is no vomiting of blood and the recent workup revealed ulcers in both the stomach and the colon. PLAN: Discussed the case with Gastroenterology. There was no sign of acute abdomen, no findings that would warrant immediate surgical intervention, but with recurrent bleeding, surgery may be needed in the future. Thank you for asking me to see Mr. Landa. Nehemias W MD ROLF Montgomery/ANTON /[id number]
[2020-01-01] MEDS: AMIODARONE HCL 200 MG TAB PO SCH ×2 (11:37→19:54)
[2020-01-01] MEDS: SUCRALFATE 1 GM TAB PO SCH ×4 (11:38→21:00)
[2020-01-01] MEDS ORDERED: INSULIN REGULAR, HUMAN 3ML VL 100 UNIT in SODIUM CHLORIDE 0.9% 100 ML 99 ML IV STA ×2 (12:18)
[2020-01-01] MEDS ORDERED: DEXTROSE 50% SYRINGE 50 ML IV NR ×2 (12:30)
[2020-01-01] MEDS ORDERED: INSULIN REGULAR, HUMAN 100 UNIT/1 ML 3ML VIAL IV SCH (12:30)
--- NOTE | 2020-01-01 12:32 | NUR ---
Called [phone], spoke to Ana regarding STAT dialysis order from Niesha Delgado, Ana was told to call Ashley Tomlinson regarding obtaining orders for dialysis specifics, Ana repliedm "okay."
--- NOTE | 2020-01-01 13:04 | NUR ---
CALLED DR. ROBBINS'S ANSWERING SERVICE REGARDING POSSIBLE PROCEDURE VERSUS PATIENT RECEIVING A DIET, ASSISTANT HVAC MECHANIC STATED THAT SHE WOULD PAGE DR. JOHNSON BECAUSE HE IS THE CURRENT PHYSICIAN COVERING FOR GI SERVICES.
[2020-01-01] MEDS ORDERED: SODIUM CHLORIDE 0.9% 1000ML 1,000 ML ONE (14:47)
--- NOTE | 2020-01-01 16:02 | NUR ---
Called Dr. Mendosa's office left mia to speak with with physician conveyor attendant, call was to request diet order.
[2020-01-01] MEDS: INSULIN LISPRO 100 UNIT/1 ML 3ML VIAL SQ SCH ×2 (16:30→21:00)
[2020-01-01] MEDS ORDERED: DEXTROSE 50% SYRINGE 50 ML IV PRN (16:30)
--- NOTE | 2020-01-01 17:04 | Consultation ---
DATE OF CONSULTATION: 01/01/2020 HISTORY OF PRESENT ILLNESS: Mr. Deondre Landa is well known to me. He is a 79-year-old gentleman, underlying diabetes, diabetic nephropathy, end-stage renal disease requiring 3 times a week dialysis, has a fistula in the left upper arm, history of prior CLL, large rectal polyp, gastric ulcers, severe peripheral vascular disease, had septic arthritis last admission, recent GI bleed, status post EGD shows multiple cratered gastric ulcers and colonoscopy was found to have colonic ulcers as well. Currently lying supine, perfectly comfortable, resting, no apparent distress. Has been maintained on prednisone, icatibant, ibrutinib, amlodipine, and allopurinol. He was found to have a potassium of 5.9 and acute kidney injury. He is seen by GI here as well as General Surgery because of recurrent bleeding. General Surgery is anticipating possible surgery. He also has a history of gout, anemia, chronic kidney disease, and secondary hyperparathyroidism. REVIEW OF SYSTEMS: His current review of systems is negative for abdominal pain, nausea, vomiting, or chest pains. LABORATORY DATA: He apparently was transfused, hemoglobin today 11.3, hemoglobin 12.0, however, potassium 5.9 with a creatinine 7.2. Bicarb 22. His last INR was 1.11. ALLERGIES: NO APPARENT DRUG ALLERGIES. SOCIAL HISTORY: He does not smoke or drink. He has a very supportive daughter. CURRENT MEDICATIONS: The patient is on IV pantoprazole and was given one time dose of IV vancomycin. He is on amiodarone 200 mg b.i.d., allopurinol 100 mg daily. He is also on Carafate, Azulfidine 500 mg p.o. q.i.d., which is sulfasalazine. He is also on insulin. For dose schedule, please see MAR. PHYSICAL EXAMINATION: GENERAL: He is awake, alert, oriented x3, lying supine, in no apparent distress. VITAL SIGNS: Blood pressure 157/71, pulse rate 82, afebrile, respiratory rate 18, and oxygen saturation 99%. HEAD AND NECK: Cornea clear. Oral mucosa moist. Neck veins flat. LUNGS: Relatively clear. Occasional rales at bases. HEART: S1 and S2 audible. ABDOMEN: Otherwise soft and nontender. No apparent visceromegaly. EXTREMITIES: Lower extremity examination shows no edema. IMPRESSION AND PLAN: Hyperkalemia, end-stage renal disease, and mild fluid overload. Blood sugar noted, it is 85, I will give 2 amps dextrose 50% and 8 units of regular insulin IV. Arrange for stat dialysis. Renal diet. Discussed with bedside RN. Awaiting dialysis nurses arrival. Please see orders. MD PÉREZ Alves/ANTON /[id number]
[2020-01-01 17:07] LABS: CREATINE KINASE MB 0.9 ng/mL (0-5.0)
[2020-01-01] MEDS ORDERED: DIPHENHYDRAMINE HCL INJ 50 MG/ML VIAL IV ONE (19:30)
--- NOTE | 2020-01-01 21:10 | Progress Note ---
DATE: 01/01/2020 SUBJECTIVE: The patient reports very small bowel movement, like a smear with some dark blood. Reports no abdominal pain. He was started on clear liquid diet this afternoon. He received 3 units of packed red blood cell transfusion since admission last night. He also received dialysis today. REVIEW OF SYSTEMS: GENERAL: Weakness. CVS: No chest pain or palpitation. RESPIRATORY: No cough or expectoration. MEDICATIONS: Reviewed, as per MAR. He is getting intravenous pantoprazole infusion along with other medication. PHYSICAL EXAMINATION: VITAL SIGNS: Temperature 99.3, pulse 85, respirations 22, blood pressure 143/65, oxygen saturation 100% on room air. GENERAL: Not in any acute distress. HEENT: Oral mucosa is moist. Anicteric sclerae. ABDOMEN: Soft, nondistended, nontender. No palpable mass or hernia. Positive bowel sounds. LABORATORY DATA: WBC 12.08, hemoglobin has climbed up from 6.6 to 11.3, hematocrit 34.1 from 20.9, platelet count 248. Sodium 134, potassium 5.9, chloride 99, bicarb 22, BUN 58, creatinine 7.21. IMPRESSION: Upper gastrointestinal bleed manifesting as melena, this has resolved. The patient is not having any active melena at this time. Appropriate rise in hemoglobin post transfusion. PLAN: Continue clear liquid diet. Monitor stool. Check hemoglobin in the morning. If there is no melena or hematochezia, then advance the diet solid food, renal diet. I had a discussion with Dr. Montgomery, if the patient develops any gross GI bleeding, at that point of time, he will undergo urgent bleeding scan or urgent abdominal angiogram to localize the site of bleeding and angioembolization accordingly. We will refrain from surgery at this point of time. Adarsh Melo MD SA/ANTON /[id number]
[2020-01-02] VITALS (8 sets, daily range): BP systolic 116–145; BP diastolic 61–74
[2020-01-02] MEDS: HYDROCODONE/APAP 5MG-325MG TAB PO PRN ×2 (02:55→21:48)
[2020-01-02 05:24] LABS: BASOPHILS # (AUTO) 0.1 (0.0-0.1); BASOPHILS % 0.5 % (0.0-1.0); EOSINOPHILS # (AUTO) 0.2 (0.0-0.4); EOSINOPHILS % 1.7 % (0.0-6.0); HEMATOCRIT 30.5 % (38.2-49.6); HEMOGLOBIN 10.1 g/dL (14.0-18.0); LYMPHOCYTES # (AUTO) 2.6 (1.0-3.2); LYMPHOCYTES % 25.7 % (18.0-39.1); MEAN CORPUSCULAR HEMOGLOBIN 29.4 pg (28-32); MEAN CORPUSCULAR HGB CONC 33.1 g/dL (31-35); MEAN CORPUSCULAR VOLUME 88.9 fL (81-99); MONOCYTES # (AUTO) 0.7 (0.2-0.8); MONOCYTES % 6.8 % (4.4-11.3); NEUTROPHILS # (AUTO) 6.4 (2.1-6.9); NEUTROPHILS % 63.7 % (38.7-80.0); PLATELET COUNT 220 x10e3/uL (140-360); RED BLOOD COUNT 3.43 x10e6/uL (4.3-5.7); RED CELL DISTRIBUTION WIDTH 14.2 % (11.7-14.4)
--- NOTE | 2020-01-02 07:00 | NUR ---
BEDSIDE SHIFT REPORT RECEIVED PT IN STABLE CONDITION, DENIES PAIN AT THIS TIME, R AC 20G, R EJ SL, UPDATED ON POC VOCIED UNDERSTANDING, CALL LIGHT IN REACH WILL CONTINUE TO MONITOR
[2020-01-02 07:16] LABS: ALBUMIN 1.3 g/dL (3.5-5.0); ALBUMIN/GLOBULIN RATIO 0.3 (0.8-2.0); ALKALINE PHOSPHATASE 50 IU/L (40-150); ANION GAP 10.1 mmol/L (8-16); BLOOD UREA NITROGEN 29 mg/dL (7-26); BUN/CREATININE RATIO 7 (6-25); CALCIUM 7.6 mg/dL (8.4-10.2); CARBON DIOXIDE 29 mmol/L (22-29); CHLORIDE 99 mmol/L (98-107); CREATININE, SERUM 4.43 mg/dL (0.72-1.25); EST GLOMERULAR FILTRATION RATE 13 ML/MIN (60-); GLUCOSE 96 mg/dL (74-118); MAGNESIUM 1.8 MG/DL (1.3-2.1); POTASSIUM 4.1 mmol/L (3.5-5.1); SODIUM 134 mmol/L (136-145)
[2020-01-02 07:17] LABS: ALANINE AMINOTRANSFERASE < 6 IU/L (0-55)
[2020-01-02] MEDS: INSULIN LISPRO 100 UNIT/1 ML 3ML VIAL SQ SCH ×4 (07:30→20:34)
[2020-01-02] MEDS: SULFASALAZINE 500 MG TAB PO SCH ×4 (08:48→21:48)
[2020-01-02] MEDS: ALLOPURINOL 100 MG TAB PO SCH (08:48)
[2020-01-02] MEDS: PANTOPRAZOLE 40 MG 10ML VIAL IV SCH ×2 (08:48→16:42)
[2020-01-02] MEDS: AMIODARONE HCL 200 MG TAB PO SCH ×2 (08:48→17:00)
[2020-01-02] MEDS: SUCRALFATE 1 GM TAB PO SCH ×4 (08:48→21:48)
[2020-01-02] MEDS: FOLIC ACID/CYANOCOB/PYRIDOXINE TAB PO SCH (08:48)
--- NOTE | 2020-01-02 17:30 | NUR ---
report called to receiveing nurse, awaiting telemetry box will transfer when available
--- NOTE | 2020-01-02 18:10 | NUR ---
telemetry box placed on pt, pt transferred to 211, with all belongings, pt in stable condition
[2020-01-02] MEDS: IBRUTINIB 280 MG PO SCH (21:00)
[2020-01-03] VITALS (7 sets, daily range): BP systolic 142–174; BP diastolic 62–84
[2020-01-03] MEDS ORDERED: CEFAZOLIN SOD 1 GM VIAL IV SCH (05:45)
[2020-01-03 06:48] LABS: BASOPHILS # (AUTO) 0.1 (0.0-0.1); BASOPHILS % 0.7 % (0.0-1.0); EOSINOPHILS # (AUTO) 0.1 (0.0-0.4); EOSINOPHILS % 0.8 % (0.0-6.0); HEMATOCRIT 31.9 % (38.2-49.6); HEMOGLOBIN 10.5 g/dL (14.0-18.0); LYMPHOCYTES # (AUTO) 2.7 (1.0-3.2); LYMPHOCYTES % 24.4 % (18.0-39.1); MEAN CORPUSCULAR HEMOGLOBIN 29.5 pg (28-32); MEAN CORPUSCULAR HGB CONC 32.9 g/dL (31-35); MEAN CORPUSCULAR VOLUME 89.6 fL (81-99); MONOCYTES # (AUTO) 0.8 (0.2-0.8); MONOCYTES % 7.7 % (4.4-11.3); NEUTROPHILS # (AUTO) 7.1 (2.1-6.9); NEUTROPHILS % 64.9 % (38.7-80.0); PLATELET COUNT 140 x10e3/uL (140-360); RED BLOOD COUNT 3.56 x10e6/uL (4.3-5.7); RED CELL DISTRIBUTION WIDTH 13.7 % (11.7-14.4)
--- NOTE | 2020-01-03 07:00 | NUR ---
BEDSIDE SHIFT REPORT ROUNDS FROM YAMINI VARGHESE. PT DENIES NEEDS AT THIS TIME.
[2020-01-03 07:12] LABS: ALBUMIN 1.4 g/dL (3.5-5.0); ALBUMIN/GLOBULIN RATIO 0.3 (0.8-2.0); ALKALINE PHOSPHATASE 55 IU/L (40-150); ANION GAP 18.6 mmol/L (8-16); CALCIUM 7.7 mg/dL (8.4-10.2); CARBON DIOXIDE 24 mmol/L (22-29); CHLORIDE 98 mmol/L (98-107); CREATININE, SERUM 5.79 mg/dL (0.72-1.25); EST GLOMERULAR FILTRATION RATE 10 ML/MIN (60-); GLUCOSE 61 mg/dL (74-118); POTASSIUM 4.6 mmol/L (3.5-5.1); SODIUM 136 mmol/L (136-145)
[2020-01-03 07:13] LABS: ALANINE AMINOTRANSFERASE < 6 IU/L (0-55)
[2020-01-03] MEDS: INSULIN LISPRO 100 UNIT/1 ML 3ML VIAL SQ SCH ×4 (07:30→20:44)
[2020-01-03 07:36] LABS: BLOOD UREA NITROGEN 38 mg/dL (7-26); BUN/CREATININE RATIO 7 (6-25)
[2020-01-03] MEDS: AMIODARONE HCL 200 MG TAB PO SCH ×2 (09:40→16:57)
[2020-01-03] MEDS: FOLIC ACID/CYANOCOB/PYRIDOXINE TAB PO SCH (09:40)
[2020-01-03] MEDS: SUCRALFATE 1 GM TAB PO SCH ×4 (09:40→21:43)
[2020-01-03] MEDS: PANTOPRAZOLE 40 MG 10ML VIAL IV SCH ×2 (09:40→16:57)
[2020-01-03] MEDS: ALLOPURINOL 100 MG TAB PO SCH (09:40)
[2020-01-03] MEDS: SULFASALAZINE 500 MG TAB PO SCH ×4 (09:40→21:43)
[2020-01-03 10:41] LABS: RBC MORPHOLOGY COMMENT NORMAL
[2020-01-03 10:42] LABS: PLATELET ESTIMATE ADEQUATE
[2020-01-03 10:43] LABS: PLATELET MORPHOLOGY COMMENT NORMAL
--- NOTE | 2020-01-03 13:51 | NUR ---
FAXED CLINICALS FOR PT TO RETURN TO [facility] PER ORDER. PLAN ID FOR DISCHARGE TOMORROW.
--- NOTE | 2020-01-03 15:18 | NUR ---
WENT TO SPEAK ABOUT UPDATE OF REFERRAL BACK TO SNF, DAUGHTER IN ROOM AND STATES HE WANTS TO GO HOME WITH HOME HEALTH. LET NURSE KNOW TO GET ORDER AND GOT CHOICE SIGNED FOR [facility]. WILL FAX UPDATES TO [facility] FOR [facility] TO [facility].
--- NOTE | 2020-01-03 15:19 | NUR ---
CALLED [facility] FOR [facility] NOW, CALLED BACK BY ROQUE, STATES HE IS ON HIS WAY TO DO THE PT.
--- NOTE | 2020-01-03 16:35 | NUR ---
CATHERINE Lewis faxed clinicals to [facility]. / . CM received call from Charlene with [facility]. States they have received clinicals and will put pt on schedule when he discharges.
[2020-01-03] MEDS ORDERED: SODIUM CHLORIDE 0.9% 1000ML 1,000 ML ONE (17:11)
[2020-01-03] MEDS ORDERED: IBRUTINIB 140 MG PO SCH (21:00)
[2020-01-03] MEDS: IBRUTINIB 280 MG PO SCH (21:43)
[2020-01-03] MEDS ORDERED: CEFAZOLIN SOD 2 GM/D5W 50ML 50 ML IV SCH (22:00)
[2020-01-04 00:37] VITALS: BP 137/63
--- NOTE | 2020-01-04 01:17 | Progress Note ---
DATE: 01/03/2020 SUBJECTIVE: The patient is tolerating clear liquids, reports no abdominal pain. He has had a bowel movement yesterday. No bowel movement today. REVIEW OF SYSTEMS: GENERAL: Weakness. No fever or chills. CVS: No chest pain or palpitation. RESPIRATORY: No cough or expectoration. MEDICATIONS: Reviewed as per SEP. PHYSICAL EXAMINATION: VITAL SIGNS: Temperature 97.7, pulse 93, respirations 20, blood pressure 174/84, oxygen saturation 100% on room air. GENERAL: Not in any acute distress. HEENT: Oral mucosa is moist. ABDOMEN: Soft, nondistended, nontender. No palpable mass or hernia. Positive bowel sounds. LABORATORY DATA: Hemoglobin 10.1 yesterday, it is 10.5 today. IMPRESSION: No more evidence of any ongoing GI bleeding. Hemoglobin remains stable. He has multiple cratered gastric ulcer as well as erosive duodenitis. He also had a large rectal polyp, which was removed. The patient has had upper endoscopy x2, colonoscopy on last admission. PLAN: Continue PPI IV twice daily, advance to renal diet. Monitor him clinically. In the meantime, we will continue IV PPI while he is in the hospital. We will switch it to oral PPI twice daily when he is discharged home. He is [facility] to [facility]. Adarsh Melo MD SA/ANTON /[id number]
[2020-01-04 05:42] VITALS: BP 148/72
[2020-01-04 06:39] LABS: BASOPHILS # (AUTO) 0.1 (0.0-0.1); BASOPHILS % 0.6 % (0.0-1.0); EOSINOPHILS # (AUTO) 0.2 (0.0-0.4); EOSINOPHILS % 1.5 % (0.0-6.0); HEMATOCRIT 31.4 % (38.2-49.6); HEMOGLOBIN 10.3 g/dL (14.0-18.0); LYMPHOCYTES # (AUTO) 1.9 (1.0-3.2); LYMPHOCYTES % 19.1 % (18.0-39.1); MEAN CORPUSCULAR HGB CONC 32.8 g/dL (31-35); MEAN CORPUSCULAR VOLUME 91.5 fL (81-99); MONOCYTES # (AUTO) 0.8 (0.2-0.8); MONOCYTES % 7.9 % (4.4-11.3); NEUTROPHILS # (AUTO) 6.9 (2.1-6.9); NEUTROPHILS % 69.3 % (38.7-80.0); PLATELET COUNT 217 x10e3/uL (140-360); RED BLOOD COUNT 3.43 x10e6/uL (4.3-5.7); RED CELL DISTRIBUTION WIDTH 13.8 % (11.7-14.4)
[2020-01-04 06:54] LABS: ALBUMIN 1.3 g/dL (3.5-5.0); ALBUMIN/GLOBULIN RATIO 0.3 (0.8-2.0); ALKALINE PHOSPHATASE 52 IU/L (40-150); ANION GAP 13.2 mmol/L (8-16); BLOOD UREA NITROGEN 21 mg/dL (7-26); BUN/CREATININE RATIO 5 (6-25); CALCIUM 7.4 mg/dL (8.4-10.2); CARBON DIOXIDE 26 mmol/L (22-29); CHLORIDE 102 mmol/L (98-107); CREATININE, SERUM 3.93 mg/dL (0.72-1.25); EST GLOMERULAR FILTRATION RATE 15 ML/MIN (60-); GLUCOSE 91 mg/dL (74-118); MAGNESIUM 1.8 MG/DL (1.3-2.1); POTASSIUM 4.2 mmol/L (3.5-5.1); SODIUM 137 mmol/L (136-145)
[2020-01-04 06:57] LABS: ALANINE AMINOTRANSFERASE < 6 IU/L (0-55)
--- NOTE | 2020-01-04 07:00 | NUR ---
BEDSIDE SHIFT REPORT ROUNDS FROM YAMINI VARGHESE. PT DENIES NEEDS AT THIS TIME.
[2020-01-04] MEDS: INSULIN LISPRO 100 UNIT/1 ML 3ML VIAL SQ SCH ×3 (07:30→18:31)
[2020-01-04 08:27] VITALS: BP 163/75
[2020-01-04] MEDS: PANTOPRAZOLE 40 MG 10ML VIAL IV SCH ×2 (09:07→18:30)
[2020-01-04] MEDS: SULFASALAZINE 500 MG TAB PO SCH ×3 (09:12→18:30)
[2020-01-04] MEDS: SUCRALFATE 1 GM TAB PO SCH ×3 (09:12→18:30)
[2020-01-04] MEDS: AMIODARONE HCL 200 MG TAB PO SCH ×2 (09:12→18:30)
[2020-01-04] MEDS: ALLOPURINOL 100 MG TAB PO SCH (09:12)
[2020-01-04] MEDS: FOLIC ACID/CYANOCOB/PYRIDOXINE TAB PO SCH (09:12)
[2020-01-04 09:33] VITALS: BP 163/75
[2020-01-04 11:40] VITALS: BP 163/75
--- NOTE | 2020-01-04 14:00 | NUR ---
Received call from daughter Farrah Landa. Wants to know about DMEs. States they needs wheelchair, rolling walker, BSC. Informed her that insurance may not cover all DMEs, but we can try. She states can use any company in network with pt's insurance. Choice letter placed in chart for [facility] and [facility]. Received order from Dr. Cunha for DME. GEENA spoke with Gary at [facility] who states that insurance will only cover for a wheelchair or RW, not both. GEENA called Ms Landa and informed her. She states would prefer wheelchair and asked that equipment be delivered to her sister's house - [id number] [place] [address]. States pt will be going to her sister's house on discharge, since he would have more support there. Referral was faxed to [facility] at [phone]. Gary with [facility] was notified of referral.
--- NOTE | 2020-01-04 16:10 | NUR ---
CATHERINE called and spoke with Chery [phone] (manager lpn) at [facility] regarding IV abx. Chery stated that pt already has orders for current IV abx so it will not be a problem to continue. Clinicals were refaxed to facility. GEENA informed Dr. Cunha regarding IV abx at HD. Dr. Cunha states ok to discharge pt today. YAMINI Peña was updated. GEENA also spoke with pt's daughter Farrah regarding DME. Gary has contacted her and she is aware that they will need auth for wheelchair. States she will try to push insurance for auth. Addendum: 01/04/20 at 1648 by Randi Parekh CM Pt has his regular HD chair for tomorrow at 5pm. YAMINI Peña was updated.
--- NOTE | 2020-01-04 16:15 | NUR ---
Called [facility] and informed them that pt will be discharging.
[2020-01-04 16:31] VITALS: BP 154/72
== END 2020-01-04 18:50 | disposition home or self-care (01) | DRG 377 ==
LOC: ER 16:49 → ERHOLD 16:52 → IMCU 01-01 00:31 → MED/SURG2 01-02 18:10
PROVIDERS: ADMIT Internal Medicine; ATTEND Internal Medicine
PROC: 5A1D70Z Performance of Urinary Filtration, Intermittent, Less than 6 Hours Per Day (ICD-10-PCS; principal; 2020-01-01)
PROC: 30243N1 Transfusion of Nonautologous Red Blood Cells into Central Vein, Percutaneous Approach (ICD-10-PCS; 2020-01-01)
DX: K25.4 Chronic or unspecified gastric ulcer with hemorrhage (principal); N18.6 End stage renal disease; M00.9 Pyogenic arthritis, unspecified; C91.10 Chronic lymphocytic leukemia of B-cell type not having achieved remission; K92.2 Gastrointestinal hemorrhage, unspecified; E11.9 Type 2 diabetes mellitus without complications; M10.9 Gout, unspecified; D50.0 Iron deficiency anemia secondary to blood loss (chronic); K29.80 Duodenitis without bleeding; E11.21 Type 2 diabetes mellitus with diabetic nephropathy; Z79.4 Long term (current) use of insulin; E11.51 Type 2 diabetes mellitus with diabetic peripheral angiopathy without gangrene
CPT/HCPCS: 36415; 80048; 80053; 82270; 82550; 82553; 82948; 83735; 84484; 85025; 85610; 85730; 86705; 86706; 86850; 86900; 86920; 87340; 87635; 93005; 96361; 99284; J0690; J0692; J1100; J1200; J1817; J3370; J7030; J7050; J7799; P9016

== ENCOUNTER 2020-01-08 10:11 | Emergency (ER) | payer MEDICARE ==
[~2020-01-08] VITALS: Ht 167.6 cm; Wt 68.9 kg
[~2020-01-08 10:11] MED LIST changes: +ACETAMINOPHEN325 M1 PO; +AMIODARONE HCL200 MG PO; +HUMULIN R100 UNIT/2 SC; +IMBRUVICA PO; +LIDOPATCH1 EACH TOP; +MEGESTROL400 MG/10 PO; +MIDODRINE HCL10 MG PO; +MIDODRINE HCL5 MG PO; +NORCO 5-325 TA1 EACH PO; +PANTOPRAZOLE SO40 MG PO; +QUESTRAN PACKET4 GM PO; +SUCRALFATE1 GM PO; +SULFASALAZINE500 MG PO
[2020-01-08] MEDS ORDERED: PANTOPRAZOLE 40 MG 10ML VIAL IV STA (10:32)
--- NOTE | 2020-01-08 10:46 | Emergency Department Note ---
History of Present Illnes History of Present Illness Chief Complaint: General Medicine Complaints History of Present Illness This is a 79 year old male . vomiting blood this am Chief Complaint Comment coughing up blood onset last night. just d/c for gi complications. all information provided from daughter. pt with dialysis m/w/f. due today. 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, Family Member Arrival Mode: Car Onset (how long ago): day(s) (this am) Radiation: non-radiation, back, neck, extremity, abdomen, periumbilical, flank, proximal, distal, other Onset quality: sudden Duration (how long): day(s) (today) Progression: unchanged Context: recent illness, recent surgery, recent immobilization, recent travel, trauma/injury, new medications, hx of DVT/PE, non-compliance w/ medications, other Relieving factors: none Exacerbating factors: none Treatments prior to arrival: none Past Medical/Family History Physician Review I have reviewed the patient's past medical and family history. Any updates have been documented here. Past Medical History Recent Fever: No Clinical Suspicion of Infectio: No New/Unexplained Change in Ment: No Past Medical History: Hypertension, Diabetes, CHF, CAD, Cancer, ESRD, Hemod yalisis, DVT/PE, Chronic Kidney Disease Other Medical History: Pulmonary embolism Ulcerative colitis Arthitis ACQUIRED ANGIOEDEMA DX 11/2018 DIALYSIS M/W/F LEUKEMIA Past Surgical History: None, Cataract Removal Other Surgery: CATARACT SURGERY FISTULA L ARM : Social History Smoking Cessation: Never Smoker Alcohol Use: None Any Illegal Drug Use: No TB Exposure/Symptoms: No Physically hurt or threatened: No Family History Family history of heart diseas: No Other Last Tetanus: UTD Any Pre-Existing Lines (PICC,: No Review of Systems Review of Systems Constitutional: no symptoms EENTM: no symptoms Cardiovascular: no symptoms Respiratory: no symptoms Gastrointestinal: vomiting (vomitnng up blood x 1 this am and last night x 1); abdominal pain, diarrhea Genitourinary: no symptoms Musculoskeletal: no symptoms Neurological: no symptoms Psychological: no symptoms Endocrine: no symptoms Hematological/Lymphatic: no symptoms Review of other systems All other systems reviewed and negative. Physical Exam Related Data Allergies: Coded Allergies: No Known Allergies (Unverified , 10/31/16) Triage Vital Signs Vital Signs Date Time Temp Pulse Resp B/P (MAP) Pulse Ox O2 Delivery O2 Flow Rate FiO2 6/8/20 10:19 98.5 95 18 154/76 99 Vital signs reviewed: Yes Physical Exam CONSTITUTIONAL Constitutional: well-developed, well-nourished HENT HENT: normocephalic, atraumatic, oropharynx clear/moist, nose normal HENT L/R: left ext ear normal, right ext ear normal EYES Eyes: PERRL, conjunctivae normal NECK Neck: ROM normal PULMONARY Pulmonary: effort normal, breath sounds normal CARDIOVASCULAR Cardiovascular: regular rhythm, heart sounds normal, capillary refill normal, normal rate GASTROINTESTINAL Abdominal: soft, nontender, bowel sounds normal GENITOURINARY Genitourinary: exam deferred SKIN Skin: warm, dry MUSCULOSKELETAL Musculoskeletal: ROM normal NEUROLOGICAL Neurological: alert, oriented x 3, no gross motor or sensory deficits PSYCHOLOGICAL Psychological: mood/affect normal, judgement normal Results Laboratory Laboratory Laboratory Tests Test 01/08/20 11:03 White Blood Count 15.41 x10e3/uL (4.8-10.8) Red Blood Count 3.61 x10e6/uL (4.3-5.7) Hemoglobin 10.7 g/dL (14.0-18.0) Hematocrit 33.5 % (38.2-49.6) Mean Corpuscular Volume 92.8 fL (81-99) Mean Corpuscular Hemoglobin 29.6 pg (28-32) Mean Corpuscular Hemoglobin Concent 31.9 g/dL (31-35) Red Cell Distribution Width 14.0 % (11.7-14.4) Platelet Count 213 x10e3/uL (140-360) Neutrophils (%) (Auto) 73.9 % (38.7-80.0) Lymphocytes (%) (Auto) 16.9 % (18.0-39.1) Monocytes (%) (Auto) 6.3 % (4.4-11.3) Eosinophils (%) (Auto) 0.5 % (0.0-6.0) Basophils (%) (Auto) 0.8 % (0.0-1.0) Neutrophils # (Auto) 11.4 (2.1-6.9) Lymphocytes # (Auto) 2.6 (1.0-3.2) Monocytes # (Auto) 1.0 (0.2-0.8) Eosinophils # (Auto) 0.1 (0.0-0.4) Basophils # (Auto) 0.1 (0.0-0.1) Absolute Immature Granulocyte (auto 0.25 x10e3/uL (0-0.1) Prothrombin Time 15.7 seconds (11.9-14.5) Prothromb Time International Ratio 1.17 Activated Partial Thromboplast Time 39.1 seconds (23.8-35.5) Sodium Level 133 mmol/L (136-145) Potassium Level 4.7 mmol/L (3.5-5.1) Chloride Level 94 mmol/L (98-107) Carbon Dioxide Level 27 mmol/L (22-29) Anion Gap 16.7 mmol/L (8-16) Blood Urea Nitrogen 37 mg/dL (7-26) Creatinine 6.38 mg/dL (0.72-1.25) Estimat Glomerular Filtration Rate 9 ML/MIN (60-) BUN/Creatinine Ratio 6 (6-25) Glucose Level 86 mg/dL (74-118) Calcium Level 9.0 mg/dL (8.4-10.2) Total Bilirubin 0.3 mg/dL (0.2-1.2) Aspartate Amino Transf (AST/SGOT) 9 IU/L (5-34) Alanine Aminotransferase (ALT/SGPT) < 6 IU/L (0-55) Alkaline Phosphatase 64 IU/L (40-150) Creatine Kinase 17 IU/L (30-200) Creatine Kinase MB 1.00 ng/mL (0-5.0) Troponin I 0.026 ng/mL (0-0.300) Total Protein 6.8 g/dL (6.5-8.1) Albumin 1.6 g/dL (3.5-5.0) Globulin 5.2 g/dL (2.3-3.5) Albumin/Globulin Ratio 0.3 (0.8-2.0) Lipase 19 U/L (8-78) Laboratory Tests Test 01/08/20 11:03 White Blood Count 15.41 x10e3/uL (4.8-10.8) Red Blood Count 3.61 x10e6/uL (4.3-5.7) Hemoglobin 10.7 g/dL (14.0-18.0) Hematocrit 33.5 % (38.2-49.6) Mean Corpuscular Volume 92.8 fL (81-99) Mean Corpuscular Hemoglobin 29.6 pg (28-32) Mean Corpuscular Hemoglobin Concent 31.9 g/dL (31-35) Red Cell Distribution Width 14.0 % (11.7-14.4) Platelet Count 213 x10e3/uL (140-360) Neutrophils (%) (Auto) 73.9 % (38.7-80.0) Lymphocytes (%) (Auto) 16.9 % (18.0-39.1) Monocytes (%) (Auto) 6.3 % (4.4-11.3) Eosinophils (%) (Auto) 0.5 % (0.0-6.0) Basophils (%) (Auto) 0.8 % (0.0-1.0) Neutrophils # (Auto) 11.4 (2.1-6.9) Lymphocytes # (Auto) 2.6 (1.0-3.2) Monocytes # (Auto) 1.0 (0.2-0.8) Eosinophils # (Auto) 0.1 (0.0-0.4) Basophils # (Auto) 0.1 (0.0-0.1) Absolute Immature Granulocyte (auto 0.25 x10e3/uL (0-0.1) Prothrombin Time 15.7 seconds (11.9-14.5) Prothromb Time International Ratio 1.17 Activated Partial Thromboplast Time 39.1 seconds (23.8-35.5) Sodium Level 133 mmol/L (136-145) Potassium Level 4.7 mmol/L (3.5-5.1) Chloride Level 94 mmol/L (98-107) Carbon Dioxide Level 27 mmol/L (22-29) Anion Gap 16.7 mmol/L (8-16) Blood Urea Nitrogen 37 mg/dL (7-26) Creatinine 6.38 mg/dL (0.72-1.25) Estimat Glomerular Filtration Rate 9 ML/MIN (60-) BUN/Creatinine Ratio 6 (6-25) Glucose Level 86 mg/dL (74-118) Calcium Level 9.0 mg/dL (8.4-10.2) Total Bilirubin 0.3 mg/dL (0.2-1.2) Aspartate Amino Transf (AST/SGOT) 9 IU/L (5-34) Alanine Aminotransferase (ALT/SGPT) < 6 IU/L (0-55) Alkaline Phosphatase 64 IU/L (40-150) Creatine Kinase 17 IU/L (30-200) Creatine Kinase MB 1.00 ng/mL (0-5.0) Troponin I 0.026 ng/mL (0-0.300) Total Protein 6.8 g/dL (6.5-8.1) Albumin 1.6 g/dL (3.5-5.0) Globulin 5.2 g/dL (2.3-3.5) Albumin/Globulin Ratio 0.3 (0.8-2.0) Laboratory comments K ok Imaging Impressions EXAM: CHEST SINGLE (PORTABLE) DATE: 01/08/2020 11:15 AM INDICATION: Hemoptysis COMPARISON: 12/14/2019 FINDINGS: The trachea is midline. There is minimal bibasilar opacities suggestive of atelectasis. The lungs are otherwise symmetrically expanded without evidence for focal consolidation, pneumothorax, or significant pleural effusion. The cardiomediastinal silhouette is stable in appearance. No acute osseous abnormalities identified. IMPRESSION: No acute cardiopulmonary process or significant interval change identified from 12/14/2019. Signed by: Dr. Edwardo Hadley MD on 01/08/2020 11:35 AM Dictated By: EDWARDO HADLEY MD 113 Transcribed By: HARRIS on 01/08/20 113 COPY TO: HORTENCIA GARCIA~ Procedures 12 Lead ECG Interpretation Consulting Business Developer: Interpreted by ED physician Date: Jan 08, 2020 Time: 11:54 Prior COLLECTIONS OFFICER tracings: reviewed Rhythm: sinus rhythm Rate: normal BPM: 98 QRS axis: normal Critical Care Time Subsequent provider I assumed direction of critical care for this patient from another provider of my specialty. Assessment & Plan Reassessment Reassessment time: 10:44 Reassessment 79y m presented to ed c/o vomiting up blood this am x 2 episodes approx 50cc per episode - denies sob cp dizziness n/d - hx of gastric ulcers recently dx by gi - lab ekg cxr ordered pt medicated w/ protonix Assessment & Plan Final Impression: (1) GI bleed Assessment & Plan Discussed lab results plan of care and need for transfer spoke w/ Dr Merchant will accept transfer [facility] Disposition: TRANS TO OTHER [facility] Last Vital Signs Date Time Temp Pulse Resp B/P (MAP) Pulse Ox O2 Delivery O2 Flow Rate FiO2 01/08/20 10:19 98.5 95 18 154/76 99 Home Meds Reported Medications Sulfasalazine (SULFASALAZINE) 500 Mg Tab, 500 MG PO QID, #30 TAB 01/01/20 Sucralfate (SUCRALFATE) 1 Gm Tablet, 1 GM PO QID for GI BLEED, TAB 01/01/20 Pantoprazole Sodium* (PROTONIX) 40 Mg Tablet.dr, 40 MG PO Q12H for GI BLEED, TAB 01/01/20 Insulin Regular, Human (HUMULIN R) 100 Unit/1 Ml Vial, SC 01/01/20 Midodrine Hcl (MIDODRINE HCL) 10 Mg Tablet, 10 MG PO PRN for HYPOTENSION 01/01/20 Megestrol Acetate (MEGESTROL ACETATE) 400 Mg/10 Ml Oral.susp, 400 MG PO DAILY for LEUKEMIA, ML 01/01/20 Lidocaine/Menthol (LIDOPATCH) 1 Each Adh..patch, 1 PATCH TOP DAILY PRN for PAIN, PATCH 01/01/20 Ibrutinib (Imbruvica) 70 Mg Capsule, 140 MG PO HS for LEUKEMIA 01/01/20 Hydrocodone Bit/Acetaminophen (NORCO 5-325 TABLET) 1 Each Tablet, 1 TAB PO Q4H PRN for MODERATE PAIN (4-6), TAB 01/01/20 Cholestyramine (With Sugar) (QUESTRAN PACKET) 4 Gm Packet, 4 GM PO BID, PACKET 01/01/20 Amiodarone Hcl (AMIODARONE HCL) 200 Mg Tablet, 200 MG PO BID 01/01/20 Acetaminophen (ACETAMINOPHEN) 325 Mg Tablet, 325 MG PO Q6H PRN for PAIN for 5 Days, TAB 01/01/20 Folic Acid/Vitamin B Comp W-C (DIALYVITE 800 TABLET) 0.8 Mg Tablet, 1 TAB PO DAILY 05/20/19 Calcium Acetate (CALCIUM ACETATE) 667 Mg Capsule, 2 CAP PO TID 05/20/19 Ibrutinib (Imbruvica) 140 Mg Capsule, 140 MG PO HS TAKE ON EMPTY STOMACH 05/20/19 Allopurinol (ALLOPURINOL) 100 Mg Tablet, 100 MG PO DAILY, #30 TAB 05/20/19 Medications in the ED Pantoprazole Sodium 80 mg ONCE STAT IV ; Start 01/08/20 at 10:32; Stop 01/08/20 at 10:37; Status DC HORTENCIA GARCIA Jan 08, 2020 10:46
[2020-01-08] MEDS ORDERED: ONDANSETRON HCL INJ 2MG/ML 2ML 2 MG/ML VIAL IV STA (11:21)
[2020-01-08] MEDS ORDERED: MORPHINE SULFATE 2 MG/ML SYR 1ML IV PRN (11:30)
--- NOTE | 2020-01-08 11:38 | Diagnostic Imaging Report ---
EXAM: CHEST SINGLE (PORTABLE) DATE: 01/08/2020 11:15 AM INDICATION: Hemoptysis COMPARISON: 12/14/2019 FINDINGS: The trachea is midline. There is minimal bibasilar opacities suggestive of atelectasis. The lungs are otherwise symmetrically expanded without evidence for focal consolidation, pneumothorax, or significant pleural effusion. The cardiomediastinal silhouette is stable in appearance. No acute osseous abnormalities identified. IMPRESSION: No acute cardiopulmonary process or significant interval change identified from 12/14/2019. Signed by: Dr. Lefty eDnis MD on 01/08/2020 11:35 AM
[2020-01-08 12:02] LABS: INR 1.17; PROTHROMBIN TIME 15.7 seconds (11.9-14.5)
[2020-01-08 12:03] LABS: PARTIAL THROMBOPLASTIN TIME 39.1 seconds (23.8-35.5)
[2020-01-08 12:05] LABS: ALBUMIN 1.6 g/dL (3.5-5.0); ALBUMIN/GLOBULIN RATIO 0.3 (0.8-2.0); ALKALINE PHOSPHATASE 64 IU/L (40-150); ANION GAP 16.7 mmol/L (8-16); BLOOD UREA NITROGEN 37 mg/dL (7-26); BUN/CREATININE RATIO 6 (6-25); CARBON DIOXIDE 27 mmol/L (22-29); CHLORIDE 94 mmol/L (98-107); CREATINE KINASE 17 IU/L (30-200); CREATININE, SERUM 6.38 mg/dL (0.72-1.25); EST GLOMERULAR FILTRATION RATE 9 ML/MIN (60-); GLUCOSE 86 mg/dL (74-118); POTASSIUM 4.7 mmol/L (3.5-5.1); SODIUM 133 mmol/L (136-145)
[2020-01-08 12:11] LABS: ALANINE AMINOTRANSFERASE < 6 IU/L (0-55)
[2020-01-08 12:14] LABS: BASOPHILS # (AUTO) 0.1 (0.0-0.1); BASOPHILS % 0.8 % (0.0-1.0); EOSINOPHILS # (AUTO) 0.1 (0.0-0.4); EOSINOPHILS % 0.5 % (0.0-6.0); HEMATOCRIT 33.5 % (38.2-49.6); HEMOGLOBIN 10.7 g/dL (14.0-18.0); LYMPHOCYTES # (AUTO) 2.6 (1.0-3.2); LYMPHOCYTES % 16.9 % (18.0-39.1); MEAN CORPUSCULAR HEMOGLOBIN 29.6 pg (28-32); MEAN CORPUSCULAR HGB CONC 31.9 g/dL (31-35); MEAN CORPUSCULAR VOLUME 92.8 fL (81-99); MONOCYTES % 6.3 % (4.4-11.3); NEUTROPHILS # (AUTO) 11.4 (2.1-6.9); NEUTROPHILS % 73.9 % (38.7-80.0); PLATELET COUNT 213 x10e3/uL (140-360); RED BLOOD COUNT 3.61 x10e6/uL (4.3-5.7)
[2020-01-08] MEDS ORDERED: PANTOPRAZOL 40MG/SOD CHL 0.9% 50 ML IV SCH (13:00)
--- NOTE | 2020-01-08 13:16 | NUR ---
[facility] contacted at this time ETA 1hr.
== END 2020-01-08 15:31 | disposition other institution (70) ==
LOC: ER 10:11
DX: K92.2 Gastrointestinal hemorrhage, unspecified (principal); I12.0 Hypertensive chronic kidney disease with stage 5 chronic kidney disease or end stage renal disease; E11.22 Type 2 diabetes mellitus with diabetic chronic kidney disease; N18.6 End stage renal disease; Z99.2 Dependence on renal dialysis; Z85.6 Personal history of leukemia; Z86.711 Personal history of pulmonary embolism
CPT/HCPCS: 36415; 71045; 80053; 82550; 82553; 83690; 84484; 85025; 85610; 85730; 86850; 86900; 93005; 99284; J2270; J2405

== ENCOUNTER 2020-01-14 21:29 | Inpatient (IN) | payer MEDICARE, OTHER ==
[~2020-01-14] VITALS: Ht 167.6 cm; Wt 68.9 kg
--- NOTE | 2020-01-15 00:10 | Emergency Department Note ---
History of Present Illnes History of Present Illness Chief Complaint: General Medicine Complaints History of Present Illness This is a 79 year old male with history of end-stage renal disease on dialysis and bleeding ulcers presents with complaint of coughing up blood for the last 2 hours. When discussing with patient he states it is actually actually vomiting blood. Had same problem a week ago was transferred downtown because was no beds available at this facility. An EGD which showed bleeding gastric ulcers. . 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, Family Member Arrival Mode: Car Onset (how long ago): hour(s) (2) Location: abd Quality: vomiitng blood Radiation: Reports non-radiation Severity: moderate Onset quality: sudden Duration (how long): hour(s) (2) Timing of current episode: intermittent Progression: waxing and waning Chronicity: recurrent Relieving factors: none Exacerbating factors: none Past Medical/Family History Physician Review I have reviewed the patient's past medical and family history. Any updates have been documented here. Past Medical History Recent Fever: No Clinical Suspicion of Infectio: No New/Unexplained Change in Ment: No Past Medical History: Hypertension, Diabetes, CHF, CAD, Cancer, ESRD, Hemodyalisis, DVT/PE, Chronic Kidney Disease Other Medical History: Pulmonary embolism Ulcerative colitis Arthitis ACQUIRED ANGIOEDEMA DX 11/2018 DIALYSIS M/W/F LEUKEMIA GASTRIC ULCERS Past Surgical History: None, Cataract Removal Other Surgery: CATARACT SURGERY FISTULA L ARM : Social History Smoking Cessation: Never Smoker Alcohol Use: None Any Illegal Drug Use: No Other Last Tetanus: UTD Review of Systems Review of Systems Constitutional: Reports no symptoms EENTM: Reports no symptoms Cardiovascular: Reports no symptoms Respiratory: Reports no symptoms Gastrointestinal: Reports as per HPI Genitourinary: Reports no symptoms Musculoskeletal: Reports no symptoms Integumentary: Reports no symptoms Neurological: Reports no symptoms Psychological: Reports no symptoms Endocrine: Reports no symptoms Hematological/Lymphatic: Reports no symptoms Physical Exam Related Data Allergies: Coded Allergies: No Known Allergies (Unverified , 10/31/16) Triage Vital Signs Vital Signs Date Time Temp Pulse Resp B/P (MAP) Pulse Ox O2 Delivery O2 Flow Rate FiO2 01/14/20 22:44 97.0 76 20 166/82 100 Vital signs reviewed: Yes Physical Exam CONSTITUTIONAL Constitutional: Present well-developed, Present well-nourished HENT HENT: Present normocephalic, Present atraumatic, Present oropharynx clear/moist, Present nose normal HENT L/R: Present left ext ear normal, Present right ext ear normal EYES Eyes: Reports PERRL, Reports conjunctivae normal NECK Neck: Present ROM normal PULMONARY Pulmonary: Present effort normal, Present breath sounds normal CARDIOVASCULAR Cardiovascular: Present regular rhythm, Present heart sounds normal, Present capillary refill normal, Present normal rate GASTROINTESTINAL Abdominal: Present soft, Present nontender, Present bowel sounds normal GENITOURINARY Genitourinary: Present exam deferred SKIN Skin: Present warm, Present dry MUSCULOSKELETAL Musculoskeletal: Present ROM normal NEUROLOGICAL Neurological: Present alert, Present oriented x 3, Present no gross motor or sensory deficits PSYCHOLOGICAL Psychological: Present mood/affect normal, Present judgement normal Results Laboratory Laboratory Laboratory Tests Test 01/15/20 03:35 Lab results reviewed: Yes Imaging Imaging results reviewed: Yes Impressions CT CHEST IMPRESSION: Small bilateral pleural effusions, right greater than left, with adjacent mild compressive atelectasis. Signed by: Dr. Zhao Esqueda MD on 01/15/2020 3:28 AM Assessment & Plan Medical Decision Making MDM Patient with history of bleeding gastric ulcers presents with 2 hours of vomiting blood intermittently. CBC, CMP, PT, PTT, chest x-ray ordered to eval for anemia, coagulopathy, intrathoracic abnormality. Protonix 40 mg IV ordered. Patient to be admitted for upper GI bleed at spoke with Dr. Cunha admitted inpatient also spoke with Dr. RIDDLE for any comfort Dr. Stapleton and Dr. BANDA covering for Dr. FLORES. Assessment & Plan Final Impression: (1) GI bleed (2) ANEMIA, UNSPECIFIED (3) ESRD on dialysis Depart Disposition: ADMITTED Last Vital Signs Date Time Temp Pulse Resp B/P (MAP) Pulse Ox O2 Delivery O2 Flow Rate FiO2 01/14/20 22:44 97.0 76 20 166/82 100 Home Meds Reported Medications Sulfasalazine (SULFASALAZINE) 500 Mg Tab, 500 MG PO QID, #30 TAB 01/01/20 Sucralfate (SUCRALFATE) 1 Gm Tablet, 1 GM PO QID for GI BLEED, TAB 01/01/20 Pantoprazole Sodium* (PROTONIX) 40 Mg Tablet.dr 40 MG PO Q12H for GI BLEED, TAB 01/01/20 Insulin Regular, Human (HUMULIN R) 100 Unit/1 Ml Vial, SC 01/01/20 Midodrine Hcl (MIDODRINE HCL) 10 Mg Tablet, 10 MG PO PRN for HYPOTENSION 01/01/20 Megestrol Acetate (MEGESTROL ACETATE) 400 Mg/10 Ml Oral.susp, 400 MG PO DAILY for LEUKEMIA, ML 01/01/20 Lidocaine/Menthol (LIDOPATCH) 1 Each Adh..patch, 1 PATCH TOP DAILY PRN for PAIN, PATCH 01/01/20 Ibrutinib (Imbruvica) 70 Mg Capsule, 140 MG PO HS for LEUKEMIA 01/01/20 Hydrocodone Bit/Acetaminophen (NORCO 5-325 TABLET) 1 Each Tablet, 1 TAB PO Q4H PRN for MODERATE PAIN (4-6), TAB 01/01/20 Cholestyramine (With Sugar) (QUESTRAN PACKET) 4 Gm Packet, 4 GM PO BID, PACKET 01/01/20 Amiodarone Hcl (AMIODARONE HCL) 200 Mg Tablet, 200 MG PO BID 01/01/20 Acetaminophen (ACETAMINOPHEN) 325 Mg Tablet, 325 MG PO Q6H PRN for PAIN for 5 Days, TAB 01/01/20 Folic Acid/Vitamin B Comp W-C (DIALYVITE 800 TABLET) 0.8 Mg Tablet, 1 TAB PO DAILY 05/20/19 Calcium Acetate (CALCIUM ACETATE) 667 Mg Capsule, 2 CAP PO TID 05/20/19 Ibrutinib (Imbruvica) 140 Mg Capsule, 140 MG PO HS TAKE ON EMPTY STOMACH 05/20/19 Allopurinol (ALLOPURINOL) 100 Mg Tablet, 100 MG PO DAILY, #30 TAB 05/20/19 SHIELA DASH MD Jan 15, 2020 00:10
--- NOTE | 2020-01-15 01:38 | Diagnostic Imaging Report ---
EXAMINATION: CHEST SINGLE (PORTABLE) INDICATION: ^eval for pulmonary edema ^Y COMPARISON: 01/08/2020 FINDINGS: AP view TUBES and LINES: None. LUNGS: Lungs are well inflated. Mild central vascular congestion. PLEURA: No pneumothorax. Small left pleural effusion with adjacent hazy opacification. HEART AND MEDIASTINUM: The cardiomediastinal silhouette is unremarkable. BONES AND SOFT TISSUES: No acute osseous lesion. Soft tissues are unremarkable. UPPER ABDOMEN: No free air under the diaphragm. IMPRESSION: Mild central vascular congestion. Small left pleural effusion with adjacent hazy opacification, representing atelectasis and/or pneumonia in the appropriate clinical context. Signed by: Dr. Zhao Esqueda MD on 01/15/2020 1:35 AM
[2020-01-15 02:19] LABS: INR 1.15; PROTHROMBIN TIME 15.4 seconds (11.9-14.5)
[2020-01-15 02:20] LABS: PARTIAL THROMBOPLASTIN TIME 42.4 seconds (23.8-35.5)
[2020-01-15 02:25] LABS: ALBUMIN 1.6 g/dL (3.5-5.0); ALBUMIN/GLOBULIN RATIO 0.3 (0.8-2.0); ALKALINE PHOSPHATASE 74 IU/L (40-150); ANION GAP 20.4 mmol/L (8-16); BLOOD UREA NITROGEN 39 mg/dL (7-26); BUN/CREATININE RATIO 7 (6-25); CALCIUM 9.2 mg/dL (8.4-10.2); CARBON DIOXIDE 23 mmol/L (22-29); CHLORIDE 95 mmol/L (98-107); CREATININE, SERUM 5.73 mg/dL (0.72-1.25); EST GLOMERULAR FILTRATION RATE 10 ML/MIN (60-); GLUCOSE 131 mg/dL (74-118); POTASSIUM 5.4 mmol/L (3.5-5.1); SODIUM 133 mmol/L (136-145)
[2020-01-15 02:39] LABS: ALANINE AMINOTRANSFERASE < 6 IU/L (0-55)
[2020-01-15 02:48] LABS: BASOPHILS # (AUTO) 0.1 (0.0-0.1); BASOPHILS % 0.6 % (0.0-1.0); EOSINOPHILS # (AUTO) 0.1 (0.0-0.4); EOSINOPHILS % 0.7 % (0.0-6.0); HEMATOCRIT 30.4 % (38.2-49.6); HEMOGLOBIN 9.5 g/dL (14.0-18.0); LYMPHOCYTES # (AUTO) 2.2 (1.0-3.2); LYMPHOCYTES % 15.2 % (18.0-39.1); MEAN CORPUSCULAR HEMOGLOBIN 29.7 pg (28-32); MEAN CORPUSCULAR HGB CONC 31.3 g/dL (31-35); MONOCYTES # (AUTO) 1.2 (0.2-0.8); MONOCYTES % 8.6 % (4.4-11.3); NEUTROPHILS # (AUTO) 10.5 (2.1-6.9); NEUTROPHILS % 73.9 % (38.7-80.0); PLATELET COUNT 228 x10e3/uL (140-360); RED CELL DISTRIBUTION WIDTH 15.5 % (11.7-14.4)
--- NOTE | 2020-01-15 03:31 | Diagnostic Imaging Report ---
EXAM: CT Chest WITHOUT contrast INDICATION: ^Y ^EVAL FINDINGS ON CXR ^Y COMPARISON: Same day chest x-ray TECHNIQUE: Chest was scanned utilizing a multidetector helical scanner from the lung apex through the level of the adrenal glands without administration of IV contrast. Absence of intravenous contrast decreases sensitivity for detection of lymphadenopathy and vascular pathology. Coronal and sagittal reformations were obtained. Routine protocol was performed. IV CONTRAST: None COMPLICATIONS: None RADIATION DOSE: Total DLP: 498.37 mGy*cm Estimated effective dose: (DLP x 0.014 x size factor) mSv CTDIvol has been reviewed. It is below the limits set by the Radiation Protocol Committee (RPC). FINDINGS: LINES/ TUBES: None. LUNGS, PLEURA, AND AIRWAYS: Small bilateral pleural effusions, right greater than left, with adjacent mild compressive atelectasis.. Airways are normal. PLEURA: HEART AND MEDIASTINUM: The thyroid gland is normal. No mediastinal, hilar or axillary lymphadenopathy. Left hilar calcified lymph nodes. The heart is normal in size.. There is no pericardial effusion. Mild atherosclerotic calcification of the thoracic aorta and moderate atherosclerotic calcification of coronary arteries. UPPER ABDOMEN: Unremarkable. Subcentimeter left hepatic lobe hypodensity is too small to characterize. BONES: There are degenerative changes in the thoracic spine. Left-sided old mild fracture deformities of few ribs. SOFT TISSUES: Mild anasarca. Small bilateral gynecomastia. IMPRESSION: Small bilateral pleural effusions, right greater than left, with adjacent mild compressive atelectasis. Signed by: Dr. Zhao Esqueda MD on 01/15/2020 3:28 AM
[2020-01-15] MEDS ORDERED: DEXTROSE 50% SYRINGE 50 ML IV PRN ×2 (04:15→14:45)
[2020-01-15] MEDS ORDERED: CEFAZOLIN SOD 1 GM VIAL IV SCH (06:00)
--- NOTE | 2020-01-15 06:05 | History and Physical ---
REASON FOR ADMISSION: 1. Gastrointestinal bleed. 2. Anemia. HISTORY OF PRESENT ILLNESS: The patient is a 79-year-old male with multiple comorbidities, who presents with nausea, vomiting, and hematemesis prior to admission. Currently, he is feeling okay, lying in bed, and doing well. PAST MEDICAL HISTORY: Significant for diabetes, leukemia, end-stage renal disease, hypertension currently septic right knee. MEDICATIONS: See MAR. ALLERGIES: SEE MAR. SOCIAL HISTORY: Nonsmoker. Nondrinker. Lives at home. FAMILY HISTORY: Hypertension. PHYSICAL EXAMINATION: VITAL SIGNS: Temperature is 96, pulse 74, blood pressure 136/74, and saturations 98% on room air. GENERAL: He is in no apparent distress, lying in bed. NECK: Supple. No lymphadenopathy. CARDIOVASCULAR: Regular rate and rhythm. LUNGS: Decreased breath sounds. ABDOMEN: Good bowel sounds. Soft, nontender. EXTREMITIES: No clubbing or cyanosis. Right knee is still slightly warm. NEUROLOGIC: Nonfocal. ASSESSMENT/PLAN: 1. Gastrointestinal bleed. We will go ahead and admit the patient, and consult GI for further evaluation, placed on proton pump inhibitor. 2. Anemia. We will check CBC very closely. 3. End-stage renal disease. Consult Renal. 4. Diabetes. Continue to monitor sugar. 5. Septic right knee. Continue with his antibiotics on dialysis. 6. History of leukemia with CLL. Continue to monitor his white count. 7. Hypertension. Continue to monitor. Please see hospital chart for full details. MD MARIA D Best/ANTON /[id number]
--- NOTE | 2020-01-15 07:00 | NUR ---
RECEIVED TO RM AAOX3 NO DISTRESS NOTE, UPDATED ON POC VOICED UNDERSTANDING,ORIENTED ROOM VOICE UNDERSTANDING, L FISTULA BRUIT AUSCULTATED, THRILL PALPATED, DENIES PAIN AT THIS TIME, CALL LIGHT IN REACH WILL CONTINUE TO MONITOR
[2020-01-15 07:27] VITALS: BP 135/62
--- NOTE | 2020-01-15 08:00 | NUR ---
PAGED DR FLORES AWAITING CALL BACK
[2020-01-15 08:03] LABS: HEMATOCRIT 31.4 % (38.2-49.6); HEMOGLOBIN 9.6 g/dL (14.0-18.0)
--- NOTE | 2020-01-15 08:10 | NUR ---
PAGED DIALYSIS NURSE AWAITING CALL BACK
[2020-01-15] MEDS ORDERED: METOPROLOL TART25 MG PO (08:34)
[2020-01-15] MEDS ORDERED: SODIUM CHLORIDE 0.9% 1000ML 2,000 ML ONE (09:03)
[2020-01-15 11:12] VITALS: BP 136/72
--- NOTE | 2020-01-15 12:17 | Consultation ---
DATE OF CONSULTATION: 01/15/2020 HISTORY OF PRESENT ILLNESS: A 79-year-old gentleman known to our Nephrology Service has been admitted with abdominal pain, nausea and vomiting and hematemesis prior to admission. He is comfortable, lying supine, in no apparent distress. GI has been consulted. Apparently plans for EGD today. Today is also his dialysis day. He is currently lying supine, complaining of some foot discomfort right foot. Other than that, denies shortness of breath, nausea, vomiting, fever, chills. Denies any abdominal pain at this point in time. LABORATORY TEST: Shows sodium 133, potassium 5.4, bicarb 23, and creatinine 5.7. White count 14.1 and hemoglobin 9.6. LFTs noted. ALLERGIES: HE IS NOT ALLERGIC TO ANY MEDICATIONS. MEDICATIONS: Currently on cefazolin 2 g once and pantoprazole. SOCIAL HISTORY: Does not smoke or drink. Has a very supportive daughter. PAST MEDICAL HISTORY: Significant for diabetes type 2 leading to end-stage renal disease, underlying hypertension, peripheral neuropathy, history of gout, history of recent GI bleed, prior history of CLL, has an AV fistula, secondary hyperparathyroidism, anemia, chronic kidney disease. FAMILY HISTORY: Significant for diabetes. PAST SURGICAL HISTORY: He has had prior rectal polyp, status post endoscopy, colonoscopy on last admissions. PHYSICAL EXAMINATION: GENERAL: Awake, alert, oriented x3, lying supine, in no apparent distress. VITAL SIGNS: Blood pressure of 130/61, pulse rate 89, afebrile, and oxygen saturation 100% on room air. HEAD AND NECK: Cornea clear. Oral mucosa moist. LUNGS: Bibasilar rales. HEART: S1 and S2 audible. ABDOMEN: Otherwise soft and nontender. No apparent visceromegaly. Nontender exam. EXTREMITIES: Lower extremity examination shows no edema. IMPRESSION AND PLAN: Mild fluid overload, hyperkalemia, end-stage renal disease, underlying history of hypertension, and slightly elevated white count. Hemoglobin stable. No significant acid-base disturbance. N.p.o. for EGD. I will arrange for dialysis. Resume home medications postprocedure. Blood pressure appears stable. CT chest shows evidence of pleural effusion. Please see orders. Discussed with bedside RN. MD PÉREZ Alves/ANTON /[id number]
[2020-01-15 12:21] VITALS: BP 136/72
[2020-01-15] MEDS ORDERED: CEFAZOLIN1 GM/50 ML IVP (13:57)
--- NOTE | 2020-01-15 14:19 | NUR ---
DOWN TO OR LEFT IN STABLE CONDITION
[2020-01-15] MEDS ORDERED: LIDOCAINE 4% PATCH TP PRN (14:45)
[2020-01-15] MEDS ORDERED: HYDROCODONE/APAP 5MG-325MG TAB PO PRN (14:45)
[2020-01-15] MEDS ORDERED: PANTOPRAZOLE SOD 40 MG TABEC PO SCH (14:45)
[2020-01-15] MEDS ORDERED: ACETAMINOPHEN 325 MG TAB PO PRN (14:45)
[2020-01-15] MEDS: CALCIUM ACETATE 667 MG GELCAP PO SCH ×2 (15:00→21:28)
[2020-01-15] MEDS ORDERED: PROPOFOL IV EMULSION 10 MG/ML 20 ML VIAL ONE (15:07)
[2020-01-15 16:17] VITALS: BP 115/60
[2020-01-15] MEDS: INSULIN LISPRO 100 UNIT/1 ML 3ML VIAL SQ SCH ×2 (16:30→21:00)
[2020-01-15] MEDS: SUCRALFATE 1 GM TAB PO SCH ×2 (17:00→21:28)
[2020-01-15] MEDS: METOPROLOL TARTRATE 25 MG TAB PO SCH (17:00)
[2020-01-15] MEDS: CHOLESTYRAMINE 4 GM PACKET PO SCH (17:00)
[2020-01-15] MEDS: SULFASALAZINE 500 MG TAB PO SCH ×2 (17:37→21:28)
--- NOTE | 2020-01-15 19:09 | NUR ---
WALKING ROUNDS PERFORMED, RECEIVED PT (R) SIDE LAYING SEMI FOWLERS IN BED, AAOX3, RR EVEN AND NON-LABORED, ON ROOM AIR. NO S/SX OF DISTRESS NOTED. LEFT PT LAYING SEMI FOWLERS IN BED, BED IN LOW LOCKED POSITION, SIDE RAILS UPX2, CALL LIGHT AND PHONE WITHIN REACH. BED ALARM ACTIVATED ZONE 1.
[2020-01-15 19:47] LABS: HEMATOCRIT 29.4 % (38.2-49.6); HEMOGLOBIN 8.7 g/dL (14.0-18.0)
[2020-01-15 20:00] VITALS: BP 119/60
[2020-01-15] MEDS: IBRUTINIB 140 MG PO SCH (21:00)
[2020-01-15] MEDS ORDERED: IBRUTINIB 140 MG PO SCH (21:00)
[2020-01-15 21:41] VITALS: BP 119/60
--- NOTE | 2020-01-15 21:45 | NUR ---
ALTERNATING PRESSURE PUMP APPLIED TO MATTRESS FOR PUP.
[2020-01-16] VITALS (7 sets, daily range): BP systolic 119–150; BP diastolic 54–70
[2020-01-16 02:07] LABS: HEMATOCRIT 28.8 % (38.2-49.6); HEMOGLOBIN 8.8 g/dL (14.0-18.0)
[2020-01-16 05:47] LABS: BASOPHILS # (AUTO) 0.1 (0.0-0.1); BASOPHILS % 1.2 % (0.0-1.0); EOSINOPHILS # (AUTO) 0.1 (0.0-0.4); EOSINOPHILS % 1.6 % (0.0-6.0); HEMATOCRIT 26.8 % (38.2-49.6); HEMOGLOBIN 8.4 g/dL (14.0-18.0); LYMPHOCYTES # (AUTO) 1.8 (1.0-3.2); LYMPHOCYTES % 22.8 % (18.0-39.1); MEAN CORPUSCULAR HEMOGLOBIN 30.4 pg (28-32); MEAN CORPUSCULAR HGB CONC 31.3 g/dL (31-35); MEAN CORPUSCULAR VOLUME 97.1 fL (81-99); MONOCYTES # (AUTO) 0.9 (0.2-0.8); MONOCYTES % 11.1 % (4.4-11.3); NEUTROPHILS # (AUTO) 4.9 (2.1-6.9); NEUTROPHILS % 62.8 % (38.7-80.0); PLATELET COUNT 216 x10e3/uL (140-360); RED BLOOD COUNT 2.76 x10e6/uL (4.3-5.7); RED CELL DISTRIBUTION WIDTH 15.5 % (11.7-14.4)
[2020-01-16 05:50] LABS: ANION GAP 12.3 mmol/L (8-16); CALCIUM 8.2 mg/dL (8.4-10.2); CREATININE, SERUM 3.84 mg/dL (0.72-1.25); POTASSIUM 4.3 mmol/L (3.5-5.1)
--- NOTE | 2020-01-16 07:00 | NUR ---
BEDSIDE SHIFT REPORT RECEIVED PT IN STABLE CONDITION DENIES PAIN AT THIS TIME, UPDATED ON POC VOICED UNDERSTANDING, L FISTULA BRUIT AUSCULTATED, THRILL PALPATED, R, EJ NO SS OF INFILTRATION NOTED,NO OTHER CO VOCIED CALL LIGHT IN [facility] WILL CONTINUE TO MONITOR
[2020-01-16] MEDS: INSULIN LISPRO 100 UNIT/1 ML 3ML VIAL SQ SCH ×4 (07:30→21:23)
[2020-01-16] MEDS: SUCRALFATE 1 GM TAB PO SCH ×4 (08:10→21:14)
[2020-01-16] MEDS: PANTOPRAZOLE 40 MG 10ML VIAL IV SCH (09:48)
[2020-01-16] MEDS: AMIODARONE HCL 200 MG TAB PO SCH (09:48)
[2020-01-16] MEDS: SULFASALAZINE 500 MG TAB PO SCH ×4 (09:48→21:14)
[2020-01-16] MEDS: METOPROLOL TARTRATE 25 MG TAB PO SCH ×2 (09:49→16:52)
[2020-01-16] MEDS: CHOLESTYRAMINE 4 GM PACKET PO SCH ×2 (09:50→16:53)
[2020-01-16] MEDS: ALLOPURINOL 100 MG TAB PO SCH (09:50)
[2020-01-16] MEDS: CALCIUM ACETATE 667 MG GELCAP PO SCH ×3 (09:50→21:14)
[2020-01-16] MEDS: FOLIC ACID/CYANOCOB/PYRIDOXINE TAB PO SCH (09:50)
[2020-01-16] MEDS: MEGACE 400MG/ 10ML CUP PO SCH (09:50)
--- NOTE | 2020-01-16 13:30 | NUR ---
WOUND CARE CONSULT FOR 77 YO MALE HX OFESRD,GI BLEED, LEUKEMIA OLY 15 ON MODERATE PUP STATUS AND INTERVENTIONS AND VISCO MATTRESS LABS: WBC-7.73 HGB_8.4 GLUCOSE-79 SKIN ASSESSMENT COMPLETE PATIENT PRESENTS WITH HEALED RIGHT KNEE PARTIAL THICKNESS AND SACRAL STAGE 2 ULCERATION RECOMMENDATIONS: NURSING TO CONTINUE TO MAINTAIN MODERATE PUP STATUS AND INTERVENTIONS AND VISCO MATTRESS NURSING TO CONTINUE TO ASSIST PATIENT OUT OF BED FOR MEALS AND MUCH TOLERATED NURSING TO CONTINUE TO ASSIST PATIENT NEEDED WITH MEALS AND NUTRITIONAL SUPPLEMENTS TO ENSURE PROPER REQUIREMENTS FOR HEALING NURSING TO CONTINUE TO OFFLOAD FEET AND HEELS NEEDED WITH PILLOW SUSPENSION WHEN IN BED NURSING TO CLEAN SACRAL STAGE 2 ULCERATION WITH NORMAL SALINE DAILY AND APPLY COLLAGEN (FIBRACOL ) TO WOUND BASE AND COVER WITH ALLEVYN FOAM DRESSING Addendum: 01/16/20 at 1334 by Ruddy Piña RN Amended: Links added.
[2020-01-16 16:07] LABS: HEMATOCRIT 27.3 % (38.2-49.6); HEMOGLOBIN 8.4 g/dL (14.0-18.0)
--- NOTE | 2020-01-16 19:08 | NUR ---
WALKING ROUNDS PERFORMED, RECEIVED PT LAYING SEMI FOWLERS IN BED, AAOX3, RR EVEN AND NON-LABORED, ON ROOM AIR. NO S/SX OF DISTRESS NOTED. LEFT PT LAYING SEMI FOWLERS IN BED, BED IN LOW LOCKED POSITION, SIDE RAILS UPX2, CALL LIGHT AND PHONE WITHIN REACH. BED ALARM ACTIVATED ZONE 1.
[2020-01-16 20:09] LABS: HEMATOCRIT 26.7 % (38.2-49.6)
[2020-01-16] MEDS: IBRUTINIB 140 MG PO SCH (21:00)
[2020-01-17] VITALS (8 sets, daily range): BP systolic 113–160; BP diastolic 53–72
[2020-01-17 05:41] LABS: HEMATOCRIT 27.9 % (38.2-49.6); HEMOGLOBIN 8.6 g/dL (14.0-18.0)
[2020-01-17] MEDS ORDERED: DEXTROSE ISO IVP SCH (07:00)
[2020-01-17] MEDS ORDERED: CEFAZOLIN SODIUM IVP SCH (07:00)
--- NOTE | 2020-01-17 07:00 | NUR ---
RECEIVED PATIENT AWAKE RESTING IN BED NO S/S OF DISTRESS. BED LOW, WHEELS LOCKED, SIDE RAILS X2. CALL LIGHT IN REACH WILL CONTINUE TO MONITOR PATIENT.
[2020-01-17] MEDS: INSULIN LISPRO 100 UNIT/1 ML 3ML VIAL SQ SCH ×4 (07:30→21:00)
[2020-01-17] MEDS: PANTOPRAZOLE 40 MG 10ML VIAL IV SCH (08:27)
[2020-01-17] MEDS: AMIODARONE HCL 200 MG TAB PO SCH (08:28)
[2020-01-17] MEDS: SULFASALAZINE 500 MG TAB PO SCH ×5 (08:28→22:07)
[2020-01-17] MEDS: METOPROLOL TARTRATE 25 MG TAB PO SCH ×2 (08:28→16:46)
[2020-01-17] MEDS ORDERED: SODIUM CHLORIDE 0.9% 1000ML 2,000 ML ONE (08:28)
[2020-01-17] MEDS: MEGACE 400MG/ 10ML CUP PO SCH (08:29)
[2020-01-17] MEDS: CALCIUM ACETATE 667 MG GELCAP PO SCH ×3 (08:29→22:02)
[2020-01-17] MEDS: SUCRALFATE 1 GM TAB PO SCH ×4 (08:29→22:08)
[2020-01-17] MEDS: FOLIC ACID/CYANOCOB/PYRIDOXINE TAB PO SCH (08:29)
[2020-01-17] MEDS: ALLOPURINOL 100 MG TAB PO SCH (08:29)
[2020-01-17] MEDS: CHOLESTYRAMINE 4 GM PACKET PO SCH ×2 (08:29→16:46)
[2020-01-17] MEDS: CEFAZOLIN SOD 2 GM/D5W 50ML 50 ML IV SCH (08:37)
[2020-01-17 12:14] LABS: HEMOGLOBIN 9.5 g/dL (14.0-18.0)
--- NOTE | 2020-01-17 12:50 | NUR ---
Renal Progress and Dialysis note for 01/17/2020 Subjective - patient seen on dialysis, tolerating well. Denies any cramps, chest pain/SOB/headache/lightheadedness objective - BP 116/75 mm Hg, RR 18/min, HR 78/min, T 98 General - not in any acute distress Resp - CTAB Heart RRR Abd - soft, NT/ND Ext - trace edema Neuro - AAO x 3 labs reviewed Medications reviewed Assessment and Plan - - ESRD on MWF schedule - Anemia of chronic disease and blood loss - h/o GI bleed - hypertension plan - - HD today as per prescription Na 140/2K/Ca 2.5/ HCO3 35/ Qd700/Qb350/ x 4 hours UF 3 L as concha - rest as per primary
--- NOTE | 2020-01-17 14:00 | NUR ---
DIALYSIS COMPLETE. 3L PULLED OFF VITAL SIGNS STABLE. PATIENT TOLERATED WELL.
--- NOTE | 2020-01-17 14:01 | NUR ---
SPOKE WITH DR. HAWKINS REGARDING FAMILY REQUESTING PT EVAL. NEW ORDERS IMPLEMENTED.
--- NOTE | 2020-01-17 17:09 | NUR ---
Nutrition Intervention Note RD Recommendation(s) for Physician: -Continue renal/diabetic diet -Continue Nepro nutrition supplements -Continue appetite stimulant -Recommend Tomas BID as well as zinc and vitamin C to promote wound healing Plan of Care: RD following, monitoring for tolerance and adequacy, oral supplement recommendation Nutrition reason for involvement: pressure ulcer RD Assessment (01/17/20) Pt is a 79 year old male admitted with anemia, ESRD on dialysis, and GI bleed. Pt primarily speaks Angolan. Family member at bedside translated information for pt. Pt has been eating < 50 % to 50% of meals for the past month. Family member stated pt has not been drinking much of Nepro nutrition supplements. Pt was unsure of his usual weight or if he had any weight changes.. No chewing/swallowing issues. Will continue to monitor. Principal Problems/Diagnoses: anemia, ESRD on dialysis, and GI bleed PMH: diabetes, leukemia, end-stage renal disease, hypertension currently septic right knee GI: soft, non-tender round abdomen, last recorded BM 01/15 Skin: stage 2 sacral pressure ulcer Labs: (01/15) Cr 3.84, BUN 22, Ca 8.2 Meds: calcium acetate, megace, Nephro-Cite, protonix, amiodarone, insulin, carafate, metoprolol Ht: 66 inches Wt: 152 lbs BMI: 24.5 kg/m2 IBW: 142 lbs Malnutrition Evaluation (01/17/20) The patient does not meet criteria for a specified degree of malnutrition at this time. Will re-evaluate at follow-up as appropriate. Energy intake: <75% of estimated energy requirements for 1 month Weight loss: Unable to assess Fat loss: unable to evaluate Muscle loss: unable to evaluate Supporting Evidence: Fluid accumulation: trace edema per MD note Functional Status: unable to evaluate Nutrition Prescription (Diet Order): renal/diabetic diet Estimated Nutritional Needs: 7649-2499 calories/day (30-35 kcal/kg CBW) 83-104 g protein/day (1.2-1.5 g pro/kg CBW) Diet Adequacy: Not meeting calorie needs, Not meeting protein needs Tolerance: Tolerating PO Diet Education Needs Assessment: Family member declined the need for diet education for the pt Nutrition Care Level: moderate Nutrition Diagnosis: Inadequate energy intake related to decreased ability to consume sufficient energy secondary to decreased appetite as evidenced by pt eating <50% of meals for the past month Goal: Patient will meet 75-100% of estimated needs by follow up Progress: N/A Interventions: -mineral and carbohydrate - modified diet, Commercial beverage Monitoring/Evaluation: -Total energy intake, Total protein intake, Modified diet, Liquid supplement, Weight change Signed: Taya Gomez RD, LD
[2020-01-17 18:40] LABS: HEMATOCRIT 31.2 % (38.2-49.6); HEMOGLOBIN 9.4 g/dL (14.0-18.0)
--- NOTE | 2020-01-17 19:35 | NUR ---
BEDSIDE SHIFT REPORT RECEIVED FROM DAY RN. LEFT UPPER ARM FISTULA BRUIT AND THRILL +. DIALYSIS M,W,F. TELE ON. RT EJ 20G SL INTACT. STAGE 2 SACRUM- DRESSING INTACT. TURNED - WILL CONTINUE TURNING Q 2 HRS AND PRN. PT [place] SPEAKING.PT DENIES PAIN. CALL LIGHT WITHIN REACH. BED LOCKED AND IN LOW POSITION.
[2020-01-17] MEDS: IBRUTINIB 140 MG PO SCH (22:02)
[2020-01-18] VITALS (8 sets, daily range): BP systolic 120–134; BP diastolic 56–63
[2020-01-18 05:42] LABS: HEMATOCRIT 26.6 % (38.2-49.6); HEMOGLOBIN 8.1 g/dL (14.0-18.0)
--- NOTE | 2020-01-18 07:00 | NUR ---
RECEIVED PATIENT AWAKE RESTING IN BED NO S/S OF DISTRESS. BED LOW, WHEELS LOCKED, SIDE RAILS X2. CALL LIGHT IN REACH WILL CONTINUE TO MONITOR PATIENT.
[2020-01-18] MEDS: INSULIN LISPRO 100 UNIT/1 ML 3ML VIAL SQ SCH ×4 (07:30→21:00)
[2020-01-18] MEDS: METOPROLOL TARTRATE 25 MG TAB PO SCH ×2 (08:15→17:23)
[2020-01-18] MEDS: SUCRALFATE 1 GM TAB PO SCH ×4 (08:15→22:31)
[2020-01-18] MEDS: MEGACE 400MG/ 10ML CUP PO SCH (08:15)
[2020-01-18] MEDS: ALLOPURINOL 100 MG TAB PO SCH (08:15)
[2020-01-18] MEDS: CHOLESTYRAMINE 4 GM PACKET PO SCH ×2 (08:15→17:23)
[2020-01-18] MEDS: PANTOPRAZOLE 40 MG 10ML VIAL IV SCH (08:15)
[2020-01-18] MEDS: CALCIUM ACETATE 667 MG GELCAP PO SCH ×3 (08:15→22:31)
[2020-01-18] MEDS: AMIODARONE HCL 200 MG TAB PO SCH (08:15)
[2020-01-18] MEDS: FOLIC ACID/CYANOCOB/PYRIDOXINE TAB PO SCH (08:15)
[2020-01-18] MEDS: SULFASALAZINE 500 MG TAB PO SCH ×4 (08:35→22:31)
[2020-01-18 12:06] LABS: HEMOGLOBIN 8.3 g/dL (14.0-18.0)
[2020-01-18 17:57] LABS: HEMATOCRIT 29.9 % (38.2-49.6); HEMOGLOBIN 8.9 g/dL (14.0-18.0)
[2020-01-18] MEDS: IBRUTINIB 140 MG PO SCH (22:37)
[2020-01-19] VITALS: BP 129/62
[2020-01-19 04:00] VITALS: BP 134/63
[2020-01-19 06:07] LABS: BASOPHILS # (AUTO) 0.1 (0.0-0.1); BASOPHILS % 0.7 % (0.0-1.0); EOSINOPHILS # (AUTO) 0.1 (0.0-0.4); EOSINOPHILS % 1.7 % (0.0-6.0); HEMOGLOBIN 8.4 g/dL (14.0-18.0); LYMPHOCYTES # (AUTO) 2.2 (1.0-3.2); LYMPHOCYTES % 28.5 % (18.0-39.1); MEAN CORPUSCULAR HEMOGLOBIN 28.8 pg (28-32); MEAN CORPUSCULAR HGB CONC 31.1 g/dL (31-35); MEAN CORPUSCULAR VOLUME 92.5 fL (81-99); MONOCYTES # (AUTO) 0.7 (0.2-0.8); MONOCYTES % 9.3 % (4.4-11.3); NEUTROPHILS # (AUTO) 4.5 (2.1-6.9); NEUTROPHILS % 59.1 % (38.7-80.0); PLATELET COUNT 208 x10e3/uL (140-360); RED BLOOD COUNT 2.92 x10e6/uL (4.3-5.7); RED CELL DISTRIBUTION WIDTH 14.5 % (11.7-14.4)
--- NOTE | 2020-01-19 07:00 | NUR ---
RECEIVED BEDSIDE SHIFT REPORT FROM OFF GOING NIGHT NURSE. PATIENT IN STABLE CONDITION, NO S/S OF DISTRESS NOTED. NO PAIN VOICED. TELEMETRY APPLIED. IV SITE ASYMPTOMATIC AND PATENT, TRANSPARENT DRESSING APPLIED C/D/I. BED IN LOWEST POSITION AND LOCKED. CALL LIGHT WITHIN REACH.
[2020-01-19] MEDS: INSULIN LISPRO 100 UNIT/1 ML 3ML VIAL SQ SCH ×3 (07:30→16:30)
[2020-01-19 07:53] VITALS: BP 139/68
[2020-01-19 08:00] VITALS: BP 139/68
[2020-01-19] MEDS: PANTOPRAZOLE 40 MG 10ML VIAL IV SCH (08:48)
[2020-01-19] MEDS: MEGACE 400MG/ 10ML CUP PO SCH (08:50)
[2020-01-19] MEDS: SULFASALAZINE 500 MG TAB PO SCH ×3 (08:51→18:33)
[2020-01-19] MEDS: SUCRALFATE 1 GM TAB PO SCH ×3 (08:51→16:30)
[2020-01-19] MEDS: CALCIUM ACETATE 667 MG GELCAP PO SCH ×2 (08:52→15:00)
[2020-01-19] MEDS: METOPROLOL TARTRATE 25 MG TAB PO SCH ×2 (08:52→17:00)
[2020-01-19] MEDS: AMIODARONE HCL 200 MG TAB PO SCH (08:52)
[2020-01-19] MEDS: FOLIC ACID/CYANOCOB/PYRIDOXINE TAB PO SCH (08:52)
[2020-01-19] MEDS: ALLOPURINOL 100 MG TAB PO SCH (08:53)
[2020-01-19] MEDS: CHOLESTYRAMINE 4 GM PACKET PO SCH ×2 (08:53→17:00)
--- NOTE | 2020-01-19 11:08 | NUR ---
Renal dialysis/progress note for 01/19/2020 Subjective - chart reviewed, events noted objective - BP 139/78 mm Hg, RR 16/min, HR 92/min, T 97.2 General - not in any acute distress Resp - CTAB Heart RRR Abd - soft, NT/ND Ext - trace edema Neuro - AAO x 3 labs reviewed Medications reviewed Assessment and Plan - - ESRD on MWF schedule - Anemia of chronic disease and blood loss - h/o GI bleed - hypertension plan - - HD today as per prescription Na 140/2K/Ca 2.5/ HCO3 35/ Qd700/Qb350/ x 4 hours UF 3 L as concha - rest as per primary
--- NOTE | 2020-01-19 11:35 | NUR ---
-ORDERS FOR HOME HEALTH CARE -CM SPOKE WITH PT'S DTR PARDEEP AGUILAR [phone] SHE IS REQUESTING [facility] (ALREADY ON SERVICE WITH THEM) CHOICE LETTER SIGNED AND PLACED IN CHART COPY OF CHOICE LETTER TO PT CALLED AND FAXED CLINICALS TO [facility] PH:[phone] FAX:[phone] IMM EXPLAINED TO PT'S DTR, SIGNED BY PT'S DTR AND PLACED IN CHART COPY OF IMM GIVEN TO PT'S DTR PLAN DC HOME TODAY AFTER DIALYSIS
[2020-01-19 12:00] VITALS: BP 138/64
[2020-01-19] MEDS: CEFAZOLIN SOD 2 GM/D5W 50ML 50 ML IV SCH (14:27)
--- NOTE | 2020-01-19 15:30 | NUR ---
WOUND CARE SCREENING CONSULT FOR 79 YO MALE ADMITTED TO [facility] WITH A PRESENT HX ANEMIA, ESRD ON DIALYSIS AND GI BLEED. OLY 17 ON MODERATE PUP STATUS AND INTERVENTIONS SURFACE: REGULAR VISCO MATTRESS. LABS: WBC- 7.65 HGB- 8.4 POC GLUCOSE- 94 SKIN ASSESSMENT COMPLETE PATIENT PRESENTS WITH DENUDED SKIN STAGE II PRESSURE ULCER, MEASURING 2 CM X 3 CM X 0.1 CM. MINIMAL SEROSANGUINEOUS DRAINAGE, 100% PINK GRANULATION. RECOMMENDATIONS: NURSING TO CLEAN SACRUM ULCER WITH NORMAL SALINE, PAT DRY WITH 4X4 GAUZE, APPLY VENELEX, COVER WITH ALLEVYN FOAM DAILY. NURSING TO CONTINUE TO MONITOR PATIENT AND KEEP SKIN CLEAN AND FREE FROM STOOL OR IRRITATING MOISTURE AND CONTINUE TO FOLLOW CONSERVATIVE PUP INTERVENTIONS DAILY. NURSING TO ENCOURAGE PT TO SELF REPOSITION IN BED NEEDED. NURSING TO CONTINUE WITH REGULAR VISCO MATTRESS. NURSING TO CONTINUE TO OFFLOAD FEET AND HEELS AT ALL TIMES WITH PILLOW SUSPENSION WHEN IN BED. NURSING TO ASSIST PT OUT OF BED FOR MEALS AND NEEDED. NURSING TO CONTINUE TO ASSIST WITH PT NUTRITIONAL SUPPLEMENTS TO ENSURE PROPER REQUIREMENTS FOR HEALING. NURSING TO RE- CONSULT WOUND CARE NEEDED. Addendum: 01/19/20 at 1532 by Nithya Sapp RN Amended: Links added.
[2020-01-19 16:00] VITALS: BP 127/67
[2020-01-19] MEDS ORDERED: BALSAM PERU/CASTOR OIL 60 GM OINT...G. TP SCH (17:00)
--- NOTE | 2020-01-19 19:37 | NUR ---
Patient discharged home with home health. Patient off the unit @ 191 via wheelchair accompanied by the RN to the lobby. Patient in stable condition, no s/s of distress noted. No pain voiced. IV access removed with tip intact. All personal items taken with the patient and daughter. Discharge teaching and instructions given to daughter and patient. Verbalized understanding by patient and daughter.
--- NOTE | 2020-01-28 09:27 | Discharge Summary ---
DISCHARGE DIAGNOSES: 1. GI bleed. 2. Anemia. 3. End-stage renal disease. 4. Diabetes. 5. History of leukemia, CLL. 6. Septic arthritis of the right knee. HISTORY OF PRESENT ILLNESS AND HOSPITAL COURSE: The patient is a gentleman, who was over at a correction for continued treatment of his septic knees, who also had a recent GI bleed and transfusion where the scopes showed some ulcerations, but his GI bleeding scan showed some bleeding in the distal small bowel not reached by the scope and while over at the correction he started having some new onset bleeding again, the patient had a drop in his hemoglobin, so he was brought over to [facility] where he was given 2 units of blood, re-seen by GI, who felt like he is high risk to do scope, so we monitored the patient and he actually had no further decrease in hemoglobin. His stools turned back to normal color and so we felt that it would be too risky to [place] to go [place] with COVID-19 aspects going on since he stabilized and had a long talk with the family they wanted just to monitor for right now and they did not want him to go back to the correction, so he was discharged back home to follow up with me in 1 week. Please see hospital chart for full details. MD MARIA D Best/ANTON /[phone]
== END 2020-01-19 19:28 | disposition home health service (06) | DRG 377 ==
LOC: ER 21:29 → ERHOLD 01-15 05:10 → MED/SURG 01-15 06:36
PROVIDERS: ADMIT Internal Medicine; ATTEND Internal Medicine
PROC: 0DB78ZX Excision of Stomach, Pylorus, Via Natural or Artificial Opening Endoscopic, Diagnostic (ICD-10-PCS; 2020-01-15)
PROC: 5A1D70Z Performance of Urinary Filtration, Intermittent, Less than 6 Hours Per Day (ICD-10-PCS; 2020-01-15)
PROC: 0DB38ZX Excision of Lower Esophagus, Via Natural or Artificial Opening Endoscopic, Diagnostic (ICD-10-PCS; principal; 2020-01-15 12:00)
DX: K29.01 Acute gastritis with bleeding (principal); N18.6 End stage renal disease; I12.0 Hypertensive chronic kidney disease with stage 5 chronic kidney disease or end stage renal disease; N25.81 Secondary hyperparathyroidism of renal origin; M00.9 Pyogenic arthritis, unspecified; D64.9 Anemia, unspecified; E11.22 Type 2 diabetes mellitus with diabetic chronic kidney disease; Z99.2 Dependence on renal dialysis; Z79.4 Long term (current) use of insulin; Z85.6 Personal history of leukemia; Z11.59 Encounter for screening for other viral diseases; K44.9 Diaphragmatic hernia without obstruction or gangrene; K29.80 Duodenitis without bleeding; E21.3 Hyperparathyroidism, unspecified; M10.9 Gout, unspecified
CPT/HCPCS: 36415; 43239; 71045; 71250; 80048; 80053; 82948; 85014; 85018; 85025; 85610; 85730; 86704; 86705; 86707; 87350; 87635; 88305; 88312; 97139; 99251; 99284; J0690; J7030

== ENCOUNTER 2020-03-07 02:04 | Inpatient (IN) | payer MEDICARE ==
[2020-03-07] VITALS (7 sets, daily range): BP systolic 83–127; BP diastolic 51–72
[~2020-03-07] VITALS: Ht 167.6 cm; Wt 80.8 kg
[~2020-03-07 02:04] MED LIST changes: +CEFAZOLIN1 GM/50 ML IVP; +METOPROLOL TART25 MG PO
[2020-03-07] MEDS ORDERED: ONDANSETRON HCL INJ 2MG/ML 2ML 2 MG/ML VIAL IV STA (02:10)
--- NOTE | 2020-03-07 02:12 | Emergency Department Note ---
History of Present Illnes History of Present Illness Chief Complaint: General Medicine Complaints History of Present Illness This is a 79 year old male brought to the ED for weakness and fevers . Patient recently treated for septic knee right sided with IV abx given to him during his dialysis sessions. 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 Required: No Onset (how long ago): day(s) Radiation: Reports extremity Severity: moderate Onset quality: gradual Duration (how long): day(s) Timing of current episode: constant Progression: worsening Chronicity: new Context: Reports recent illness, Reports new medications Relieving factors: rest Exacerbating factors: movement Associated symptoms: Reports fever/chills, Reports loss of appetite, Reports malaise, Reports weakness Treatments prior to arrival: antipyretic Previous service: medications given, tests performed, one or more referrals, re-evaluation Past Medical/Family History Physician Review I have reviewed the patient's past medical and family history. Any updates have been documented here. Past Medical History Recent Fever: Yes Clinical Suspicion of Infectio: Yes New/Unexplained Change in Ment: Yes Past Medical History: Hypertension, Diabetes, CHF, ESRD, Anemia Other Medical History: PE COLITIS DVT ARTHRITIS ULCERS Past Surgical History: None, Cataract Removal Other Surgery: R ARTHROSCOPY KNEE Social History Smoking Cessation: Never Smoker Alcohol Use: None Any Illegal Drug Use: No Other Last Tetanus: UTD Review of Systems Review of Systems Constitutional: Reports fever, Reports weakness EENTM: Reports no symptoms Cardiovascular: Reports no symptoms Respiratory: Reports no symptoms Gastrointestinal: Reports nausea, Reports vomiting Genitourinary: Reports no symptoms Musculoskeletal: Reports joint pain Integumentary: Reports no symptoms Neurological: Reports no symptoms Psychological: Reports no symptoms Endocrine: Reports no symptoms Hematological/Lymphatic: Reports no symptoms Physical Exam Related Data Allergies: Coded Allergies: No Known Allergies (Unverified , 10/31/16) Triage Vital Signs Vital Signs Date Time Temp Pulse Resp B/P (MAP) Pulse Ox O2 Delivery O2 Flow Rate FiO2 03/07/20 02:19 100.3 121 30 121/64 95 03/07/20 02:25 Room Air Vital signs reviewed: Yes Physical Exam CONSTITUTIONAL Constitutional: Present obese, Present ill appearing HENT HENT: Present normocephalic, Present atraumatic, Present oropharynx clear/moist, Present nose normal HENT L/R: Present left ext ear normal, Present right ext ear normal EYES Eyes: Reports PERRL, Reports conjunctivae normal NECK Neck: Present ROM normal PULMONARY Pulmonary: Present effort normal, Present breath sounds normal CARDIOVASCULAR Cardiovascular: Present tachycardia GASTROINTESTINAL Abdominal: Present soft, Present nontender, Present bowel sounds normal GENITOURINARY Genitourinary: Present exam deferred SKIN Skin: Present warm, Present other (different temperature gradient of R knee greater than Left ); Absent erythema MUSCULOSKELETAL Musculoskeletal: Present ROM normal NEUROLOGICAL Neurological: Present alert, Present no gross motor or sensory deficits PSYCHOLOGICAL Psychological: Present mood/affect normal, Present judgement normal Results Laboratory Lab results reviewed: Yes Laboratory comments Laboratory Tests Test 03/07/20 04:53 03/07/20 03:51 03/07/20 03:31 03/07/20 02:41 Lactic Acid Level 4.2 mmol/L (0.5-2.0) 5.1 mmol/L (0.5-2.0) Bedside Glucose 83 mg/dL (70-120) White Blood Count 1.37 x10e3/uL (4.8-10.8) Red Blood Count 3.76 x10e6/uL (4.3-5.7) Hemoglobin 11.3 g/dL (14.0-18.0) Hematocrit 37.3 % (38.2-49.6) Mean Corpuscular Volume 99.2 fL (81-99) Mean Corpuscular Hemoglobin 30.1 pg (28-32) Mean Corpuscular Hemoglobin Concent 30.3 g/dL (31-35) Red Cell Distribution Width 18.6 % (11.7-14.4) Platelet Count 75 x10e3/uL (140-360) Neutrophils (%) (Auto) 55.5 % (38.7-80.0) Lymphocytes (%) (Auto) 34.3 % (18.0-39.1) Monocytes (%) (Auto) 8.8 % (4.4-11.3) Eosinophils (%) (Auto) 0.0 % (0.0-6.0) Basophils (%) (Auto) 0.7 % (0.0-1.0) Neutrophils # (Auto) 0.8 (2.1-6.9) Lymphocytes # (Auto) 0.5 (1.0-3.2) Monocytes # (Auto) 0.1 (0.2-0.8) Eosinophils # (Auto) 0.0 (0.0-0.4) Basophils # (Auto) 0.0 (0.0-0.1) Absolute Immature Granulocyte (auto 0.01 x10e3/uL (0-0.1) Differential Total Cells Counted 50 Neutrophils % (Manual) 24 % (40-74) Band Neutrophils % 8 % Lymphocytes % (Manual) 52 % (19-48) Monocytes % (Manual) 10 % (3.4-9.0) Metamyelocytes % 2 % (0-0) Myelocytes % 4 % (0-0) Platelet Estimate Moderately decreased Platelet Morphology Comment Mod edta clumping Anisocytosis Moderate Sodium Level 139 mmol/L (136-145) Potassium Level 4.6 mmol/L (3.5-5.1) Chloride Level 98 mmol/L (98-107) Carbon Dioxide Level 23 mmol/L (22-29) Anion Gap 22.6 mmol/L (8-16) Blood Urea Nitrogen 31 mg/dL (7-26) Creatinine 5.11 mg/dL (0.72-1.25) Estimat Glomerular Filtration Rate 11 ML/MIN (60-) BUN/Creatinine Ratio 6 (6-25) Glucose Level 39 mg/dL (74-118) Calcium Level 8.2 mg/dL (8.4-10.2) Total Bilirubin 0.4 mg/dL (0.2-1.2) Aspartate Amino Transf (AST/SGOT) 31 IU/L (5-34) Alanine Aminotransferase (ALT/SGPT) 14 IU/L (0-55) Alkaline Phosphatase 67 IU/L (40-150) Creatine Kinase 711 IU/L (30-200) Creatine Kinase MB 10.00 ng/mL (0-5.0) Troponin I 0.046 ng/mL (0-0.300) B-Type Natriuretic Peptide 1412.3 pg/mL (0-100) Total Protein 6.4 g/dL (6.5-8.1) Albumin 2.0 g/dL (3.5-5.0) Globulin 4.4 g/dL (2.3-3.5) Albumin/Globulin Ratio 0.5 (0.8-2.0) Lipase 9 U/L (8-78) Imaging Imaging results reviewed: Yes Impressions [place] [address] Patient Name: CHARLOTTE MARTINEZ MR #: [id number] : 1940 Age/Sex: 79/M Req #: [id number] Adm Physician: STEVEN HAWKINS MD Ordered by: DOLLY FOSTER DO Report #: [id number] Location: [facility] Room/Bed: [place] [address] Procedure: [id number] DX/KNEE RIGHT 1-2 VIEWS Exam Date: 03/07/20 Exam Time: 0350 REPORT STATUS: Signed X-ray right knee 2 views HISTORY: Pain. COMPARISON: Radiograph dated 12/02/2019 FINDINGS: No acute fracture or dislocation. Advanced tricompartment osteoarthrosis with near [id number] joint space loss, osteophyte formation, and subchondral sclerosis. Small suprapatellar effusion likely reactive to degenerative changes. No loose bodies within the infrapatellar recess. IMPRESSION: 1. No acute fracture or dislocation. 2. Advanced osteoarthrosis of the right knee, mildly progressed from 12/02/2019. Small to moderate suprapatellar effusion, likely reactive to degenerative changes, although septic joint is not excluded. Signed by: Cara Vail MD on 03/07/2020 5:08 AM Dictated By: CARA VAIL MD Transcribed By: HARRIS on 03/07/20507 COPY TO: DOLLY FOSTER DO~ [place] [address] Patient Name: CHARLOTTE MARTINEZ MR #: [id number] : 1940 Age/Sex: 79/M Req #: [id number] Adm Physician: STEVEN HAWKINS MD Ordered by: DOLLY FOSTER DO Report #: [id number] Location: [facility] Room/Bed: [place] [address] __ Procedure: [id number] DX/CHEST SINGLE (PORTABLE) Exam Date: 03/07/20 Exam Time: 349 REPORT STATUS: Signed EXAMINATION: CHEST SINGLE (PORTABLE) INDICATION: dyspnea COMPARISON: Radiograph dated 01/15/2020 FINDINGS: Heart size is upper limits normal. Central pulmonary vascular congestion. Hazy and consolidative bibasilar opacities likely represent small pleural effusions with adjacent airspace disease. No pneumothorax. IMPRESSION: Small pleural effusions with adjacent atelectasis or pneumonia in the appropriate clinical setting. Signed by: Cara Vail MD on 03/07/2020 5:02 AM Dictated By: CARA VAIL MD 1 Transcribed By: HARRIS on 03/07/20501 COPY TO: DOLLY FOSTER DO~ Procedures 12 Lead ECG Interpretation ECG Interpretation : ECG: ECG 1 Stock Parts Fabricator: Interpreted by ED physician Date: Mar 07, 2020 Time: 02:39 Prior ECG tracings: reviewed Rhythm: sinus tachycardia Rate: tachycardia BPM: 126 ST segments normal: Yes T waves normal: Yes Other findings: no other findings Clinical Impression: non-specific ECG Central Line Placement Central Line Location: left femoral Time out performed: Yes Patient Placed on Monitor/Puls: Yes Prep: mask, gown, gloves Central Line Prep: Chlorhexidine scrub Local Anesthetic: lidocaine 1% Amount of anesthesia used (mL): 5 Central Line Lumen Inserted: triple Post Procedure: sutured in place, good blood return Post Procedure X-ray: tip of catheter in good condition Patient tolerated procedure: well Complications: other (2 of the 3 ports flushing. ) Additional comments CVC #2, under seldinger technique a triple lumen CVC was placed in the R femoral vein under sterile conditions. All three ports were flushed and had good blood venous return. Left femoral CVC was removed. Critical Care Time Total Critical Care Time (min): 31 Critcal care necessary due to: sepsis, shock Critcal care time spent by me: discussion w primary provider, evaluation patient response to tx, examination of patient, obtaining hx from patient/surrogate, order/perform tx or interventions, order/review laboratory studies, order/review radiographic studies, pulse oximetry, re-evaluation of patient condition, review of old charts, vascular access procedures Assessment & Plan Medical Decision Making MDM 79 yom presents presents with signs and symptoms concerning for sepsis . Blood cx x 2 and blood cx ordered with abx given. Lactic acid elevated at 5.1. Patient given volume resuscitation at 30 cc/kg with broad sprectrum abx .Levophed ultimately initiated Reassessment Reassessment time: 05:11 Reassessment Volume reassessment done at bedside despite patient being given fluids, patient's BP continues to be low. Plan to place patient on levophed with intent to increase MAP to greater than 65 mmHg Assessment & Plan Final Impression: (1) Septic shock (2) Septic arthritis of knee, right (3) ESRD on dialysis (4) Pancytopenia (5) Hypoglycemia Depart Disposition: ADMITTED Home Meds Reported Medications Cefazolin Sodium/Dextrose,Iso (CEFAZOLIN 1 GM-D5W BAG) 1 Gm/50 Ml Froz.piggy, 2 GM IVP M,W,F, PIGGYBACK GIVE WITH DIALYSIS M,W,F 01/15/20 Metoprolol Tartrate (METOPROLOL TARTRATE) 25 Mg Tablet, 25 MG PO BID, TAB 01/15/20 Sulfasalazine (SULFASALAZINE) 500 Mg Tab, 500 MG PO QID, #30 TAB 01/01/20 Sucralfate (SUCRALFATE) 1 Gm Tablet, 1 GM PO QID for GI BLEED, TAB 01/01/20 Pantoprazole Sodium* (PROTONIX) 40 Mg Tablet.dr, 40 MG PO Q12H for GI BLEED, TAB 01/01/20 Midodrine Hcl (MIDODRINE HCL) 10 Mg Tablet, 10 MG PO PRN for HYPOTENSION 01/01/20 Lidocaine/Menthol (LIDOPATCH) 1 Each Adh..patch, 1 PATCH TOP DAILY PRN for PAIN, PATCH 01/01/20 Hydrocodone Bit/Acetaminophen (NORCO 5-325 TABLET) 1 Each Tablet, 1 TAB PO Q4H PRN for MODERATE PAIN (4-6), TAB 01/01/20 Amiodarone Hcl (AMIODARONE HCL) 200 Mg Tablet, 200 MG PO DAILY 01/01/20 Acetaminophen (ACETAMINOPHEN) 325 Mg Tablet, 325 MG PO Q6H PRN for PAIN for 5 Days, TAB 01/01/20 Folic Acid/Vitamin B Comp W-C (DIALYVITE 800 TABLET) 0.8 Mg Tablet, 1 TAB PO DAILY 05/20/19 Allopurinol (ALLOPURINOL) 100 Mg Tablet, 100 MG PO DAILY, #30 TAB 05/20/19 Discontinued Reported Medications Insulin Regular, Human (HUMULIN R) 100 Unit/1 Ml Vial, SC 01/01/20 Megestrol Acetate (MEGESTROL ACETATE) 400 Mg/10 Ml Oral.susp, 400 MG PO DAILY for LEUKEMIA, ML 01/01/20 Ibrutinib (Imbruvica) 70 Mg Capsule, 140 MG PO HS for LEUKEMIA 01/01/20 Cholestyramine (With Sugar) (QUESTRAN PACKET) 4 Gm Packet, 4 GM PO BID, PACKET 01/01/20 Calcium Acetate (CALCIUM ACETATE) 667 Mg Capsule, 2 CAP PO TID 05/20/19 Ibrutinib (Imbruvica) 140 Mg Capsule, 140 MG PO HS TAKE ON EMPTY STOMACH 05/20/19 DOLLY FOSTER DO Mar 07, 2020 02:12
[2020-03-07] MEDS ORDERED: SODIUM CHLORIDE 0.9% 1000ML 1,000 ML IV STA ×3 (02:28→07:44)
[2020-03-07] MEDS ORDERED: ACETAMINOPHEN 325 MG TAB PO ONE (02:30)
[2020-03-07 02:47] LABS: BASOPHILS % 0.7 % (0.0-1.0); HEMATOCRIT 37.3 % (38.2-49.6); HEMOGLOBIN 11.3 g/dL (14.0-18.0); LYMPHOCYTES # (AUTO) 0.5 (1.0-3.2); LYMPHOCYTES % 34.3 % (18.0-39.1); MEAN CORPUSCULAR HEMOGLOBIN 30.1 pg (28-32); MEAN CORPUSCULAR HGB CONC 30.3 g/dL (31-35); MEAN CORPUSCULAR VOLUME 99.2 fL (81-99); MONOCYTES # (AUTO) 0.1 (0.2-0.8); MONOCYTES % 8.8 % (4.4-11.3); NEUTROPHILS # (AUTO) 0.8 (2.1-6.9); NEUTROPHILS % 55.5 % (38.7-80.0); PLATELET COUNT 75 x10e3/uL (140-360); RED BLOOD COUNT 3.76 x10e6/uL (4.3-5.7); RED CELL DISTRIBUTION WIDTH 18.6 % (11.7-14.4)
[2020-03-07] MEDS: PIPER-TAZ 3.375 GM 50 ML IV SCH ×2 (02:50→12:03)
[2020-03-07] MEDS ORDERED: SODIUM CHLORIDE 0.9% 500ML 500 ML IV STA (03:04)
--- OUTSIDE RECORDS SUMMARY | 2020-03-07 03:04 | XMS REPORT | Clinical Summary ---
Author Author [facility] Address Unknown Phone Unavailable Care Team Providers Care Broomcorn Seeder Name Role Phone Kei Cunha PCP Allergies No Known Allergies Medications End Date Status Medication Sig Dispensed Refills Start Date Active allopurinoL (ZYLOPRIM) Take 100 mg 0 100 MG tablet by mouth daily. Active calcium acetate,phosphat Take 667 mg 0 bind, (PHOSLO) 667 mg by mouth 3 capsule (three) times daily. Active HYDROcodone-acetaminophen Take 1 tablet 0 (NORCO 5-325) 5-325 mg by mouth per tablet every 6 (six) hours as needed for Pain. Active lidocaine (LIDODERM) 5 % Place 1 patch 0 patch onto the skin daily Remove & Discard patch within 12 hours or as directed by MD . Active amiodarone (PACERONE) 200 Take 1 tablet 30 tablet 0 MG tablet (200 mg 0 total) by mouth daily. 01/10/2021 Active metoprolol tartrate Take 1 tablet 60 tablet 1 12/31 (LOPRESSOR) 25 MG tablet (25 mg total) 0 by mouth 2 (two) times daily. Active ceFAZolin (ANCEF) 2g IVPB Inject 50 mLs 0 12/31 (DUPLEX) in D5W 50 mL (2 g total) 0 intravenously 3 (three) times a week after dialysis MON/WED/FRI. 04/10/2020 Active pantoprazole (PROTONIX) Take 1 tablet 180 tablet 0 40 MG tablet (40 mg total) 0 by mouth 2 (two) times daily for 90 days. Active ibrutinib (IMBRUVICA) 140 Take 2 0 12/31 mg CapIndications: capsules (280 0 chronic lymphocytic mg total) by leukemia mouth once at bedtime. 01/11/2020 Discontinued amiodarone (PACERONE) 200 Take 200 mg 0 MG tablet by mouth 2 (two) times daily. 01/11/2020 Discontinued ibrutinib 140 mg Cap Take by mouth 0 Daily (1800). 01/11/2020 Discontinued sulfaSALAzine Take 500 mg 0 (AZULFIDINE) 500 mg by mouth 4 tablet (four) times daily. 01/11/2020 Discontinued ibrutinib (IMBRUVICA) 140 Take 280 0 mg CapIndications: capsules by chronic lymphocytic mouth once at leukemia bedtime. Active Problems Problem Noted Date Acute upper GI bleed 01/08/2020 ESRD (end stage renal disease) on dialysis 8 ESRD on hemodialysis Encounters Care Team Description Date Type Specialty Flakita Villagomez MD 01/10/2020 Anesthesia Gastroenterology Event Melo Wilcox MD UPPER ENDOSCOPY,BIOPSY 01/10/2020 [facility] Agrawal, Neeraj, MD Acute upper GI bleed; ESRD (end stage renal disease) on dialysis ([facility]); Hematemesis with nausea; History of peptic ulcer disease; Paroxysmal atrial fibrillation with RVR (HCC) 01/08/2020 Hospital Cardiology - Encounter 01/11/2020 01/08/2020 Orders Only General Internal Me dicine 01/08/2020 Travel after 03/07/2019 Social History Date Tobacco Use Types Packs/Day Years Used Never Smoker Smokeless Tobacco: Never Used Alcohol Use Drinks/Week oz/Week Comments Yes Sex Assigned at Date Recorded Not on file Industry Job Start Date Occupation Not on file Not on file Not on file Travel End Travel History Travel Start No recent travel history available. Last Filed Vital Signs Time Taken Vital Sign Reading 01/11/2020 8:00 AM CDT Blood Pressure 154/70 01/11/2020 8:00 AM CDT Pulse 87 01/11/2020 8:00 AM CDT Temperature 36.1 C (96.9 F) 01/11/2020 8:00 AM CDT Respiratory Rate 18 01/11/2020 8:00 AM CDT Oxygen Saturation 99% - Inhaled Oxygen - Concentration 01/11/2020 8:00 AM CDT Weight 73.7 kg (162 lb 6.4 oz) - Height - 01/11/2020 8:00 AM CDT Body Mass Index 26.21 Plan of Treatment Not on file Procedures Comments Procedure Name Priority Date/Time Associated Diag nosis RHYTHM STRIP - SCAN 01/12/2020 9:51 AM CDT CBC W/PLT COUNT & AUTO Routine 01/11/2020 DIFFERENTIAL 9:43 AM CDT CBC W/PLT COUNT & AUTO Routine 01/11/2020 DIFFERENTIAL 9:43 AM CDT POCT-GLUCOSE METER Routine 01/11/2020 9:11 AM CDT BASIC METABOLIC PANEL (7) Add-On 01/11/2020 3:50 AM CDT PHOSPHORUS Routine 01/11/2020 3:50 AM CDT POCT-GLUCOSE METER Routine 01/10/2020 10:08 PM CDT POCT-GLUCOSE METER Routine 01/10/2020 3:53 PM CDT 2D ECHO W/ DOPPLER Routine 01/10/2020 (CW/PW/COLOR) 3:49 PM CDT REPORT OF PROCEDURE - 01/10/2020 ENDOSCOPY URL 2:34 PM CDT TISSUE EXAM AP Routine 01/10/2020 2:18 PM CDT UPPER ENDOSCOPY,BIOPSY 01/10/2020 Hematemesis, p resence of 12:53 PM CDT nausea not specified HEMODIALYSIS INPATIENT Routine 01/10/2020 12:20 PM CDT POCT-GLUCOSE METER Routine 01/10/2020 7:38 AM CDT CBC W/PLT COUNT & AUTO Routine 01/10/2020 DIFFERENTIAL 5:06 AM CDT PHOSPHORUS Routine 01/10/2020 5:06 AM CDT CBC W/PLT COUNT & AUTO Routine 01/10/2020 DIFFERENTIAL 5:06 AM CDT BASIC METABOLIC PANEL (7) Routine 01/10/2020 5:06 AM CDT POCT-GLUCOSE METER Routine 01/09/2020 11:45 PM CDT POCT-GLUCOSE METER Routine 01/09/2020 6:02 PM CDT HEMOGLOBIN AND HEMATOCRIT Routine 01/09/2020 3:49 PM CDT TROPONIN I TERRI 01/09/2020 3:49 PM CDT POCT-GLUCOSE METER Routine 01/09/2020 2:11 PM CDT ECG 12-LEAD Routine 01/09/2020 1:41 PM CDT Procedure Note - Interface, External Ris In - 01/09/2020 1:43 PM CDT Ventricula r Rate 157 BPM Atrial Rate 314 BPM QRS Duration 70 ms Q-T Interval 312 ms QTC Calculatio n(Bazett) 504 ms P Ferris -65 degrees R Ferris 38 degrees T Ferris 239 degrees Atrial flutter with 2:1 A-V conduction ST & T wave abnormalit y, consider inferior ischemia Abnormal ECG When compared with ECG of 0 18:56, Atrial flutter has replaced Sinus rhythm Vent. rate has increased BY [address] now depressed in Inferior leads ST now depressed in Anterolate ral leads T wave inversion now evident in Inferior leads Nonspecifi c T wave abnormalit y now evident in Anterolate ral leads ECG 12-LEAD Routine 01/09/2020 1:41 PM CDT POCT-GLUCOSE METER Routine 01/09/2020 1:10 PM CDT POTASSIUM-STAT LAB STAT 01/09/2020 10:55 AM CDT HEMODIALYSIS INPATIENT Routine 01/09/2020 7:22 AM CDT CBC W/PLT COUNT & AUTO Routine 01/09/2020 DIFFERENTIAL 3:52 AM CDT PHOSPHORUS Routine 01/09/2020 3:52 AM CDT CBC W/PLT COUNT & AUTO Routine 01/09/2020 DIFFERENTIAL 3:52 AM CDT BASIC METABOLIC PANEL (7) Routine 01/09/2020 3:52 AM CDT HEPATITIS B SURFACE Routine 01/08/2020 ANTIGEN 11:14 PM CDT POCT-GLUCOSE METER Routine 01/08/2020 9:27 PM CDT CBC W/PLT COUNT & AUTO Routine 01/08/2020 DIFFERENTIAL 8:02 PM CDT MAGNESIUM Routine 01/08/2020 8:02 PM CDT CBC W/PLT COUNT & AUTO Routine 01/08/2020 DIFFERENTIAL 8:02 PM CDT BASIC METABOLIC PANEL (7) Routine 01/08/2020 8:02 PM CDT ECG 12-LEAD Routine 01/08/2020 6:56 PM CDT Procedure Note - Interface, External Ris In - 01/08/2020 7:09 PM CDT Ventricula r Rate 95 BPM Atrial Rate 95 BPM P-R Interval 136 ms QRS Duration 82 ms Q-T Interval 330 ms QTC Calculatio n(Bazett) 414 ms P Ferris 43 degrees R Ferris 23 degrees T Ferris 41 degrees Normal sinus rhythm Normal ECG No previous ECGs available ECG 12-LEAD Routine 01/08/2020 6:56 PM CDT SARS-COV2/RT-PCR ([facility] & Routine 01/08/2020 REF LABS) 6:44 PM CDT after 03/07/2019 Results * RHYTHM STRIP - SCAN (01/12/2020 9:51 AM CDT) Narrative Performed At This result has an attachment that is n ot available. * CBC with platelet count + automated diff (01/11/2020 9:43 AM CDT) Only the most recent of 4 results within the time period is included. WBC 10.3 3.5 - 10.5 K/L [facility] RBC 3.48 (L) 4.63 - 6.08 M/L [facility] Hemoglobin 10.3 (L) 13.7 - 17.5 GM/DL [facility] Hematocrit 33.3 (L) 40.1 - 51.0 % [facility] MCV 95.7 (H) 79.0 - 92.2 fL [facility] MCH 29.6 25.7 - 32.2 pg [facility] MCHC 30.9 (L) 32.3 - 36.5 GM/DL [facility] RDW 15.2 (H) 11.6 - 14.4 % [facility] Platelets 286 150 - 450 K/CU MM [facility] MPV 9.2 (L) 9.4 - 12.4 fL [facility] nRBC 1 (H) 0 - 0 /100 WBC [facility] % Neutros 64 % [facility] % Lymphs 23 % [facility] % Monos 9 % [facility] % Eos 2 % [facility] % Baso 1 % [facility] # Neutros 6.64 (H) 1.78 - 5.38 K/L [facility] # Lymphs 2.33 1.32 - 3.57 K/L [facility] # Monos 0.95 (H) 0.30 - 0.82 K/L [facility] # Eos 0.15 0.04 - 0.54 K/L [facility] # Baso 0.10 (H) 0.01 - 0.08 K/L [facility] Immature 2 (H) 0 - 1 % [facility] Granulocytes-Relative [facility] Specimen Blood Performing Organization Address [facility] Ph one Number [address] [phone] [place] [address] * POC-Glucose meter (01/11/2020 9:11 AM CDT) Only the most recent of 9 results within the time period is included. POC-Glucose Meter 87Comment: : TESTED AT [facility] 70 - 110 mg/dL [address] [address]: Pharmacovigilance Specialist/Certified Dialysis Technician ID = [id number] for Paramio, Jane Specimen Blood Performing Organization Address [facility] one Number [place] [phone] * Phosphorus (01/11/2020 3:50 AM CDT) Only the most recent of 3 results within the time period is included. Phosphorus 2.1 (L) 2.3 - 4.7 mg/dL [facility] Specimen Blood Narrative Performed At Pharmacovigilance Specialist ID - PIAYA L [facility] Performing Organization Address [facility] one Number [place] [phone] [place] [address] * Basic Metabolic Panel (01/11/2020 3:50 AM CDT) Only the most recent of 4 results within the time period is included. Sodium 137 136 - 145 meq/L [facility] Potassium 4.2 3.5 - 5.1 meq/L [facility] Chloride 102 98 - 107 meq/L [facility] CO2 27 22 - 29 meq/L [facility] BUN 17 7 - 21 mg/dL [facility] Creatinine 3.72 (H) 0.57 - 1.25 mg/dL [facility] Glucose 95 70 - 105 mg/dL [facility] Calcium 8.0 (L) 8.4 - 10.2 mg/dL [facility] EGFR 16Comment: ESTIMATED GFR IS mL/min/1.[address] [facility] NOT ACCURATE CREATININE [facility] CLEARANCE IN PREDICTING GLOMERULAR FILTRATION RATE. ESTIMATED GFR IS NOT APPLICABLE FOR DIALYSIS PATIENTS. Specimen Blood Narrative Performed At Pharmacovigilance Specialist ID - PIAYA L [facility] Performing Organization Address City/State/Zipcode Ph one Number [facility] [address] [place] [address] 7[facility] * 2D Echo W/Doppler(CW/PW/Color) (01/10/2020 3:49 PM CDT) Ejection Fraction [facility] ECHO HEARTLAB [facility] Specimen Narrative Performed At Transthoracic Echocardiography Report (TTE) [facility] ECH O HEARTLAB Demographics [facility] Patient Name CHARLOTTE LANDA Date of Study 01/10/2020 JARED Bailey [id number] Gender Male Visit Number [id number] Unknown [id number] Room Number 1419 Number Date of Birth1940 Referring Physician Rudy Escalera MD 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 Clinical History HTN, DM, ESRD Height: 66 inches Weight: 69.4 kg (153 lbs) BSA: 1.78 m^2 BMI: 24.69 kg/m^2 HR: 111 bpm BP: 126/64 mmHg Summary 1. Normal left ventricular chamber size . Normal wall thickness. Normal overall left ventricular systolic funct ion. No apparent segmental wall motion abnormalities. Grade 1 diastolic dysfunction (impaired relaxation and low-normal LA pressure). LA size is normal (16-34 ml/m2) . 2. The right ventricular chamber size a nd systolic function are within normal limits. RA size is normal. Estim ated peak systolic PA pressure is 25-30 mmHg (normal range). 3. No significant valvular abnormalitie s. Signature Findings Rhythm/BPRe gular sinus rhythm during the exam. Left Ventricle Normal l eft ventricular chamber size. Normal wall thickness. Normal overall left ventricular systolic function. No apparent segmental wall motion abnormalities. Grade 1 diastolic dysfunction (impaired relaxation and low-normal LA pressure). Left AtriumLA s ize is normal (16-34 ml/m2) . Right VentricleThe righ t ventricular chamber size and systolic function are within normal limits. Right Atrium RA siz e is normal. Atrial SeptumNormal interatrial septum by available views. Aortic Valve Mild A oV cusp thickening. No evidence of aortic regurgitation. Mitral Valve Mild M V leaflet thickening and calcification. Mild mitral annular calcification. Trace mitral regurgitation. No evidence of mitral stenosis. Tricuspid ValveTV struc ture is normal. A trace of tricuspid regurgitation. Estimated peak systolic PA pressure is 25-30 mmHg (normal range) . Pulmonic Valve Normal P V structure and function. Aorta Aortic root size (SInus of Valsalva diameter) is normal . Proximal ascending aorta size is normal . PericardiumNo s ignificant pericardial effusion is visualized. IVC/SVC/PA/PV/PleuralThe estimated RA pressure by IVC dynamics 0-5mmHg . Chambers/Structures Left Atrium LA Volume: 56.64 ml LA Area: 14.06 cm^2 LA Vol. Index: 32 ml/m^2 Left Ventricle LVIDd: 4.47 cm LVIDs: 3.86 cm LV Septum Diastolic: 0.73 cm LV PW Diastolic: 0.85 cm LV FS: 13.7 % LVEDV Keene's:114.5 ml LVESV Keene's:36.34 ml LVEDVI: 64 ml/m^2 LVEF Keene's: 68.3 % LVESVI: 20 ml/m^2 LVOT Diameter: 1.89 cm Right Ventricle RV Diast Dim.: 2.67 cm TAPSE: 2.41 cm Aorta Ao Root S of Daysi.: 3.17 cm Doppler/Quantitative Measurements Mitral Valve MV Peak E-Wave: 0.71 m/s MV Peak A-Wave: 1.22 m/s E/A Ratio: 0.58 Mean Velocity: 0.77 m/s Peak Gradient: 2.03 mmHg Mean Gradient: 2.59 mmHg Area (continuity): 2.49 cm^2 MV VTI: 22.89 cm MV Boo. Peak: 1.19 m/s Tissue Doppler E' Septal Velocity: 0.08 m/s E/E': 9.37 E' Lateral Velocity: 0.11 m/s Aortic Valve Peak Velocity: 1.88 m/s Mean Velocity: 1.07 m/s Peak Gradient: 14.15 mmHg Mean Gradient: 5.87 mmHg AV Area (continuity): 2.07 cm^2 AV VTI: 27.58 cm AV DVI: 0.74 LVOT Peak Velocity: 1.25 m/s Peak Gradient: 6.24 mmHg Mean Velocity: 0.66 m/s Mean Gradient: 2.32 mmHg LVOT Diameter: 1.89 cm LVOT VTI: 20.35 cm LVOT Area: 2.81 cm^2 LVOT SV:57.06 ml LVOT CO: 6.33 l/min LVOT CI: 3.56 l/min/m^2 RVOT RVOT VTI (PW): 21.54 cm Tricuspid Valve TR Velocity: 2.47 m/s TR Gradient: 24.31 mmHg Procedure Note Interface, External Ris In - 01/11/2020 9:15 AM CDT Transthoracic Echocardiography Report (TTE) Demographics Patient Name CHARLOTTE LANDA Date of Study 01/10/2020 KIKE Gender Male Visit Number [id number] Race Unknown Room Number 1419 Number Date of 1940 Referring Physician Rudy Escalera MD 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 Clinical History HTN, DM, ESRD Height: 66 inches Weight: 69.4 kg (153 lbs) BSA: 1.78 m^2 BMI: 24.69 kg/m^2 HR: 111 bpm BP: 126/64 mmHg Summary 1. Normal left ventricular chamber size. Normal wall thickness. Normal overall left ventricular systolic function. No apparent segmental wall motion abnormalities. Grade 1 diastolic dysfunction (impaired relaxation and low-normal LA pressure). LA size is normal (16-34 ml/m2) . 2. The right ventricular chamber size and systolic function are within normal limits. RA size is normal. Estimated peak systolic PA pressure is 25-30 mmHg (normal range). 3. No significant valvular abnormalities. Signature Findings Rhythm/BP Regular sinus rhythm during the exam. Left Ventricle Normal left ventricular chamber size. Normal wall thickness. Normal overall left ventricular systolic function. No apparent segmental wall motion abnormalities. Grade 1 diastolic dysfunction (impaired relaxation and low-normal LA pressure). Left Atrium LA size is normal (16-34 ml/m2) . Right Ventricle The right ventricular chamber size and systolic function are within normal limits. Right Atrium RA size is normal. Atrial Septum Normal interatrial septum by available views. Aortic Valve Mild AoV cusp thickening. No evidence of aortic regurgitation. Mitral Valve Mild MV leaflet thickening and calcification. Mild mitral annular calcification. Trace mitral regurgitation. No evidence of mitral stenosis. Tricuspid Valve TV structure is normal. A trace of tricuspid regurgitation. Estimated peak systolic PA pressure is 25-30 mmHg (normal range) . Pulmonic Valve Normal PV structure and function. Aorta Aortic root size (SInus of Valsalva diameter) is normal . Proximal ascending aorta size is normal . Pericardium No significant pericardial effusion is visualized. IVC/SVC/PA/PV/Pleural The estimated RA pressure by IVC dynamics 0-5mmHg . Chambers/Structures Left Atrium LA Volume: 56.64 ml LA Area: 14.06 cm^2 LA Vol. Index: 32 ml/m^2 Left Ventricle LVIDd: 4.47 cm LVIDs: 3.86 cm LV Septum Diastolic: 0.73 cm LV PW Diastolic: 0.85 cm LV FS: 13.7 % LVEDV Keene's:114.5 ml LVESV Keene's:36.34 ml LVEDVI: 64 ml/m^2 LVEF Keene's: 68.3 % LVESVI: 20 ml/m^2 LVOT Diameter: 1.89 cm Right Ventricle RV Diast Dim.: 2.67 cm TAPSE: 2.41 cm Aorta Ao Root S of Daysi.: 3.17 cm Doppler/Quantitative Measurements Mitral Valve MV Peak E-Wave: 0.71 m/s MV Peak A-Wave: 1.22 m/s E/A Ratio: 0.58 Mean Velocity: 0.77 m/s Peak Gradient: 2.03 mmHg Mean Gradient: 2.59 mmHg Area (continuity): 2.49 cm^2 MV VTI: 22.89 cm MV Boo. Peak: 1.19 m/s Tissue Doppler E' Septal Velocity: 0.08 m/s E/E': 9.37 E' Lateral Velocity: 0.11 m/s Aortic Valve Peak Velocity: 1.88 m/s Mean Velocity: 1.07 m/s Peak Gradient: 14.15 mmHg Mean Gradient: 5.87 mmHg AV Area (continuity): 2.07 cm^2 AV VTI: 27.58 cm AV DVI: 0.74 LVOT Peak Velocity: 1.25 m/s Peak Gradient: 6.24 mmHg Mean Velocity: 0.66 m/s Mean Gradient: 2.32 mmHg LVOT Diameter: 1.89 cm LVOT VTI: 20.35 cm LVOT Area: 2.81 cm^2 LVOT SV:57.06 ml LVOT CO: 6.33 l/min LVOT CI: 3.56 l/min/m^2 RVOT RVOT VTI (PW): 21.54 cm Tricuspid Valve TR Velocity: 2.47 m/s TR Gradient: 24.31 mmHg Performing Organization Address City/State/Zipcode Ph one Number [facility] * REPORT OF PROCEDURE - ENDOSCOPY URL (01/10/2020 2:34 PM CDT) Narrative Performed At This result has an attachment that is n ot available. * Tissue Exam (01/10/2020 2:18 PM CDT) Case Report Surgical Pathology [facility] TH Report [facility] Case: [id number] Authorizing Provider:Melo Wilcox, Collected: 01/10/2020 02:18 PM Ordering Location: [address] Received: 01/10/2020 04:20 PM Service Pathologist: Jin Rodgers MD Specimens: A) - Stomach, Pyloric Ulcer Bx B) - Stomach,Antrum, Antral Ulcer Bx C) - Biopsy, Gastric, Random Gastric Bx DIAGNOSIS A. 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 STOMACH, "ANTRAL" ULCER, BIOPSIES: - POLYPOID OXYNTIC MUCOSA WITH PROTON PUMP INHIBITOR THERAPY EFFECT - NEGATIVE FOR HELICOBACTER PYLORI ORGANISMS BY WARTHIN STARRY STAIN - NEGATIVE FOR DYSPLASIA, MALIGNANCY C. STOMACH, RANDOM BIOPSIES: - ANTRAL AND OXYNTIC MUCOSA WITH CHRONIC INACTIVE GASTRITIS - NEGATIVE FOR HELICOBACTER PYLORI ORGANISMS BY WARTHIN STARRY STAIN - NEGATIVE FOR INTESTINAL METAPLASIA, DYSPLASIA, MALIGNANCY Signing Pathologist Direct Phone Line: [phone] CPT Code(s) 79832H0 [facility] H [id number] [facility] CLINICAL HISTORY Hematemesis [facility] H [facility] SPECIMEN SOURCE A. Pyloric ulcer biopsy; B. [facility] Antral ulcer biopsy; C. Random [facility] gastric biopsy GROSS DESCRIPTION The case is received in three [facility] parts labeled with the [facility] patient's name, accession number. A. Received in formalin labeled "stomach" is a 0.4 x 0.4 x 0.2 cm aggregate of multiple irregular pritchard-pink tissue fragments which are submitted in toto in cassette A1. B. Received in formalin labeled "stomach antrum" is a 0.4 x 0.4 x 0.2 cm aggregate of irregular pritchard-pink tissue fragments which are submitted in toto in cassette B1. C. Received in formalin labeled "gastric biopsy" is 0.3 x 0.3 x 0.2 cm aggregate of irregular pritchard-pink tissue fragments which are submitted in toto in cassette C1. MW/pl MICROSCOPIC DESCRIPTION Performed. [facility] SPECIAL STUDIES The interpretation of this [facility] case included the use of [facility] immunohistochemistry or special stains. Control Slides Examined: In-house known positive controls were evaluated along with the test tissue. These control slides run alongside of the patients sample show appropriate staining. Internal positive and negative controls when available are evaluated Immunohistochemistry technical testing was performed at [facility], Pathology Laboratory where it was developed and its performance characteristics were determined. It has not been cleared or approved by the U.S. Food and Drug Administration. The FDA has determined that such clearance or approval is not necessary. The test is used for clinical purposes. It should not be regarded as investigational or for research. This laboratory is certified under the Clinical Laboratory Improvement Amendments of 1988 (CLIA-88) as qualified to perform high complexity clinical laboratory testing. Specimen Tissue Tissue - Pyloric antrum structure (body structure) Tissue - Gastric biopsy sample (specimen) Performing Organization Address City/State/Zipcode Ph one Number [place] [phone] [place], [place] [facility] * HEMODIALYSIS INPATIENT (01/10/2020 12:20 PM CDT) Narrative Performed At Destiney Ness RN 01/10/2020 12: 55 PM Procedure tolerated well. Vital signs s table. HD duration 3.5 UF 2.5 L via le ft upper arm AV Fistula. Lab Results Component Value Date WBC 10.4 01/10/2020 HGB 8.7 (L) 01/10/2020 HCT 28.0 (L) 01/10/2020 MCV 95.6 (H) 01/10/2020 PLT 273 01/10/2020 Lab Results Component Value Date GLUCOSE 88 01/10/2020 CALCIUM 8.1 (L) 01/10/2020 NA 133 (L) 01/10/2020 K 4.1 01/10/2020 CO2 29 01/10/2020 CL 99 01/10/2020 BUN 26 (H) 01/10/2020 CREATININE 4.67 (H) 01/10/2020 No components found for: HEPSAG Vitals: 01/10/20 1130 BP: 131/69 Pulse: 99 Resp: 15 Temp: SpO2: 100% * Hemoglobin and hematocrit (01/09/2020 3:49 PM CDT) Hemoglobin 9.5 (L) 13.7 - 17.5 GM/DL [facility] Hematocrit 29.5 (L) 40.1 - 51.0 % [facility] Specimen Blood Narrative Performed At Pharmacovigilance Specialist ID - [id number] [facility] Performing Organization Address [facility] one Number [address] 7[address] [facility] * Troponin I (01/09/2020 3:49 PM CDT) Troponin I 0.01 0.00 - 0.03 ng/mL [facility] Specimen Blood Narrative Performed At Troponin I (TnI) levels must be interpreted in the co ntext of the presenting [facility] symptoms and the clinical findings. Elevated TnI leve ls indicate myocardial [facility] damage, but are not specific for ischem ic heart disease. Elevated TnI levels are seen in patients with other cardiac con ditions (including myocarditis and congestive heart failure), and slight T nI elevations occur in patients with other conditions, including sepsis, hollie al failure, acidosis, acute neurological disease, and persistent tachyarrhythmia . Pharmacovigilance Specialist ID - BS Performing Organization Address [facility] one Number [address] [facility] * ECG 12 lead (01/09/2020 1:41 PM CDT) Only the most recent of 2 results within the time period is included. Specimen Narrative Performed At Ventricular Rate 157 BPM GE MUSE Atrial Rate 314 BPM QRS Duration 70 ms Q-T Interval 312 ms QTC Calculation(Bazett) 504 ms P Ferris -65 degrees R Ferris 38 degrees T Ferris 239 degrees Atrial flutter with 2:1 A-V conduction ST & T wave abnormality, consider infer ior ischemia Abnormal ECG When compared with ECG of 08-JAN-2020 1 8:56, Atrial flutter has replaced Sinus rhyth m Vent. rate has increased BY62 BPM ST now depressed in Inferior leads ST now depressed in Anterolateral leads T wave inversion now evident in Inferio r leads Nonspecific T wave abnormality now evid ent in Anterolateral leads Confirmed by MD DEVLIN RAYMOND ([id number]) on 01/10/2020 12:25:32 PM Procedure Note Interface, External Ris In - 01/10/2020 12:25 PM CDT Ventricular Rate 157 BPM Atrial Rate 314 BPM QRS Duration 70 ms Q-T Interval 312 ms QTC Calculation(Bazett) 504 ms P Ferris -65 degrees R Ferris 38 degrees T Ferris 239 degrees Atrial flutter with 2:1 A-V conduction ST & T wave abnormality, consider inferior ischemia Abnormal ECG When compared with ECG of 08-JAN-2020 18:56, Atrial flutter has replaced Sinus rhythm Vent. rate has increased BY [address] now depressed in Inferior leads ST now depressed in Anterolateral leads T wave inversion now evident in Inferior leads Nonspecific T wave abnormality now evident in Anterolateral leads Confirmed by MD DEVLIN RAYMOND ([id number]) on 01/10/2020 12:25:32 PM Performing Organization Address City/[facility] one Number GE MUSE * Potassium-Stat Lab (01/09/2020 10:55 AM CDT) Potassium 3.1 (L) 3.6 - 5.5 meq/L [facility] Specimen Blood, Arterial Performing Organization Address City/[facility] Ph one Number [address] [facility] [facility] * Hepatitis B surface antigen (01/08/2020 11:14 PM CDT) HBsAg Screen Nonreactive Nonreactive [facility] Specimen Blood Narrative Performed At Specimen is considered negative for HBsAg. [facility] Performing Organization Address City/[facility] Ph one Number [place] [phone] [address] * Magnesium (01/08/2020 8:02 PM CDT) Magnesium 1.9 1.6 - 2.6 mg/dL [facility] Specimen Blood Narrative Performed At Pharmacovigilance Specialist ID - BS [facility] Performing Organization Address [facility] Ph one Number [phone] [address] * SARS-CoV2/RT-PCR (Asymptomatic ONLY) (01/08/2020 6:44 PM CDT) SARS-COV2/RT-PCR Not Detected Not Detected, Negative [facility] SARS-COV-2 PERFORMING LAB [facility] Specimen Other Narrative Performed At Negative results do not preclude SARS-C oV-2 infection and should not be used as [facility] the sole basis for patient management decisions. Nega tive results must be [facility] combined with clinical observations, pa tient history, and epidemiological information. A false negative result ma y occur if a specimen is improperly collected, transported or handled. The limit of detection for this assay i s 250 copies/mL. This SARS CoV-2 test is a rapid, real-t jackelyn RT-PCR test intended for the qualitative detection of nucleic acid f rom SARS-CoV-2 in a nasopharyngeal swab specimen collected from individuals roseann pected of COVID-19 by their healthcare provider. This test has not been Food and Drug Ad ministration (FDA) cleared or approved and has been authorized by FDA under an Emergency Use Authorization (EUA). This EUA will be effective until the declara tion that circumstances exist justifying the authorization of the emergency use of in vitro diagnostic tests for detection and/or diagnosis of COVID-19 is terminated under Section 564(b)(2) of the Act or the EUA is revoked under Sec tion 564(g) of the Act. Fact Sheet for Healthcare Providers: https://www.[employer]/Documents/Xpert%20Xpress%20SARS%20CoV-2/Fact%20Sheets/30 2-3802%43SDDH-BQP-9%20HEALTHCARE%20PROV IDERS%20FACT%20SHEET.pdf Fact Sheet for Healthcare Patients: https://www.[employer]/Documents/Xpert%20Xpress%20SARS%20CoV-2/Fact%20Sheets/30 2-3801%51VCDO-HYM-4%20PATIENT%20FACT%20 SHEET.pdf Performing Laboratory: [address] [place] [address] Performing Organization Address City/State/[facility] Ph one Number [facility] [address] [place] [address] [phone] [facility] after 03/07/2019 Insurance Payer Benefit Subscriber ID Type Phone Address Plan / Group [employer] CIGNA xxxxxxxxxxx [facility] [employer] Contracted NG ALL CDC REVIEW CDC REVIEW xxxxx[place] [address] [place] [phone] Advance Directives For more information, please contact: [address] [address] Date Inactivated Comments Code Status Date Activated 01/11/2020 1:49 PM Full Code 01/08/2020 5:39 PM This code status was determined by: Patient 12/31/2017 9:35 PM Full Code 12/31/2017 11:29 AM This code status was determined by: Patient
--- OUTSIDE RECORDS SUMMARY | 2020-03-07 03:05 | XMS REPORT | Continuity of Care Document ---
Author Author [facility] t Organization [facility] t Address [address] [place] [address] Phone Unavailable Care Team Providers Care Application Analyst Name Role Phone MD STEVEN HAWKINS MD PCP STEVEN HAWKINS Attphys Unavailable Merchant AUSTIN, Adan Attphys Jw AUSTIN, Rudy Attphys Hernando AUSTIN, Savi Boggs Attphys Jeri AUSTIN, Miguel Alejo Attphys [phone] ADAN AKERS Attphys Unavailable HORTENCIA GARCIA MD Attphys Unavailable Shahzad BIRMINGHAM Attphys Unavailable Alejandra PETERSON Attphys Unavailable JORDYN IRENE Attphys Unavailable NELL ROPER Attphys Unavailable STEVEN HAWKISN Admphys Unavailable RUDY SAWANT Admphys Unavailable NELL ROPER Admphys Unavailable Payers Payer Name Policy Type Policy Number Effective Date Expiration Date Chandana walker [employer] [id number] 2019 00:00:00 [facility] CIG HEALTHSPRINGCIGNA HEALTHSPRING ALLxxxxxxxxxxxMaps Cont racted xxxxxxxxxxx [facility] CDC REVIEWCDC REVIEWxxxxxxxxPO CHRIS MCCARTHY [id number] x xxxxxxx [facility] Problems Condition Name Condition Details Condition Category Status Onset Date Resolution Date Last Treatment Date Treating Clinician Comments Source Acute upper GI bleed Acute upper GI bleed Disease Active 00:00:00 [facility] ESRD (end stage renal disease) on dialysis ESRD (end s tage renal disease) on dialysis Disease Active 2017-12-31 00:00:00 [facility] Gastrointestinal hemorrhage GI bleed Problem Active 2014-09-23 00:00:00 [facility] Acute renal failure superimposed on chronic kidney dis ease Acute on chronic renal failure Problem Active [facility] Pruritus Pruritus Problem Active [facility] Uremia Uremia Problem Active [facility] Angioedema Angio-edema Problem Active [facility] Conjunctivitis Conjunctivitis Problem Active [facility] Cellulitis of right orbital region Orbital cellulitis on right Proble m Active [facility] Effusion of right knee Problem Active [facility] Left shoulder pain Problem Active [facility] Hyperglycemia Problem Active [facility] ESRD on hemodialysis ESRD on hemodialysis Disease Active [facility] Allergies, Adverse Reactions, Alerts This patient has no known allergies or adverse reactions. Social History Social Habit Start Date Stop Date Quantity Comments Source Sex Assigned At [facility] Smoking Status Start Date Stop Date Source Never smoker [facility] edical [place] Medications Ordered Medication Name Filled Medication Name Start Date Stop Da te Current Medication? Ordering Clinician Indication Dosage Frequency Signature (SIG) Comments Components Source ceFAZolin (ANCEF) 2g IVPB (DUPLEX) in D5W 50 mL 2020-01-12 00:00 :00 Yes 2g Inject 50 mLs (2 g total) in travenously 3 (three) times a week after dialysis MON/WED/WED. [facility] amiodarone (PACERONE) 200 MG tablet 2020-01-11 09:57:0 6 2020-01-11 00:00:00 No 200mg Q.5D Take 200 mg by mouth 2 (two) times daily . [facility] ibrutinib (IMBRUVICA) 140 mg Cap 2020-01-11 09:57:06 2020-01 00:00:00 No chronic lymphocytic leukemia 280{capsule} Take 280 ca psules by mouth once at bedtime. [facility] ibrutinib 140 mg Cap 2020-01-11 09:57:05 2020-01-11 00:00:00 No Take by mouth Daily (1800). [facility] sulfaSALAzine (AZULFIDINE) 500 mg tablet 2020-01 09:57:05 2020-01-11 00:00:00 No 500mg Q.25D Take 500 mg by mouth 4 (four) t imes daily. [facility] amiodarone (PACERONE) 200 MG tablet 2020-01-11 00:00:00 Yes 200mg QD Take 1 tablet (200 mg total) by mouth daily. [facility] ibrutinib (IMBRUVICA) 140 mg Cap 2020-01-11 00:00:00 Yes chronic lymphocytic leukemia 280mg Take 2 capsules (28 0 mg total) by mouth once at bedtime. [facility] metoprolol tartrate (LOPRESSOR) 25 MG tablet 00:00:00 2021-01-10 23:59:00 Yes 25mg Q.5D Take 1 tablet (25 mg total) by mouth 2 (two) times daily. [facility] pantoprazole (PROTONIX) 40 MG tablet 2020-01-11 00:00: 00 2020-04-10 23:59:00 Yes 40mg Q.5D Take 1 tablet ( 40 mg total) by mouth 2 (two) times daily for 90 days. [facility] lidocaine (LIDODERM) 5 % patch 2020-01-08 18:16:14 Yes 1{patch} Q24H Place 1 patch onto the skin daily Remove & Discard patch within 12 hours or as directed by . [facility] allopurinoL (ZYLOPRIM) 100 MG tablet 2020-01-08 18:16:13 Ye s 100mg QD Take 100 mg by mouth daily. [facility] calcium acetate,phosphat bind, (PHOSLO) 667 mg capsule 2020-01-08 18:16:13 Yes 667mg Q.[id number] Take 667 mg by mouth 3 (three) times daily. [facility] HYDROcodone-acetaminophen (NORCO 5-325) 5-325 mg per tablet 2020-01-08 18:16:13 Yes 1{tbl} Take 1 tab let by mouth every 6 (six) hours as needed for Pain. [facility] Acetaminophen Acetaminophen Yes 325 Ever y 6 Hours as needed for Pain [facility] Allopurinol Allopurinol Yes 100 Daily [facility] Amiodarone Hcl Amiodarone Hcl Yes 200 Daily [facility] Calcium Acetate Calcium Acetate Yes 2 Three Ti mes A Day [facility] Cefazolin Sodium/Dextrose,Iso (Cefazolin 1 Gm-D5w Bag) 1 Gm/50 Ml FROZ.PIGGY Cefazolin Sodium/Dextrose,Iso (Cefazolin 1 Gm-D5w Bag) 1 Gm/50 Ml FROZ.PIGGY Yes 2 M,W,F [facility] Cholestyramine (With Sugar) (Questran Packet) 4 Gm PAC KET Cholestyramine (With Sugar) (Questran Packet) 4 Gm PACKET Yes 4 T wice A Day [facility] Folic Acid/Vitamin B Comp W-C (Dialyvite 800 Tablet) 0 .8 Mg TABLET Folic Acid/Vitamin B Comp W-C (Dialyvite 800 Tablet) 0.8 Mg TABLET Yes 1 Daily [facility] Hydrocodone Bit/Acetaminophen (Pearce 5-325 Tablet) 1 E ach TABLET Hydrocodone Bit/Acetaminophen (Pearce 5-325 Tablet) 1 Each TABLET Yes 1 Every 4 Hours as needed for Moderate Pain (4-6) [facility] Ibrutinib (Imbruvica) 70 Mg CAPSULE Ibrutinib (Imbruvica) 70 Mg CAPSU LE Yes 140 Bedtime for Leukemia [facility] Ibrutinib (Imbruvica) 140 Mg CAPSULE Ibrutinib (Imbruvica) 140 Mg C APSULE Yes 140 Bedtime [facility] Insulin Regular, Human (Humulin R) 100 Unit/1 Ml VIAL Insulin Regular, Human (Humulin R) 100 Unit/1 Ml VIAL Yes [facility] Lidocaine/Menthol (Lidopatch) 1 Each ADH..PATCH Lidoca ine/Menthol (Lidopatch) 1 Each ADH..PATCH Yes 1 Daily as needed for Pa in [facility] Megestrol Acetate Megestrol Acetate Yes 400 Madonna y for Leukemia [facility] Metoprolol Tartrate Metoprolol Tartrate Yes 25 Twice A Day [facility] Midodrine Hcl Midodrine Hcl Yes 10 as needed fo r Hypotension [facility] Pantoprazole Sodium (Protonix) 40 Mg TABLET. Pantopr azole Sodium (Protonix) 40 Mg TABLET. Yes 40 Every 12 Hours for Gi Ble ed [facility] Sucralfate Sucralfate Yes 1 Four Times Daily f or Gi Bleed [facility] Sulfasalazine Sulfasalazine Yes 500 Four Times D aily [facility] Prednisone Prednisone 2019-12-14 00:00:00 No 5 Radha ly [facility] Prednisone Prednisone 2019-05-20 00:00:00 No 10 Radha ly [facility] Tamsulosin Hcl (Flomax*) 0.4 Mg CAP Tamsulosin Hcl (Flomax*) 0.4 Mg CAP 2019-05-20 00:00:00 No .4 Daily [facility] Warfarin Sodium (Coumadin) 1 Mg TABLET Warfarin Sodium (Coumadin ) 1 Mg TABLET 2017-08-13 00:00:00 No 1 Twice A Day [facility] Metronidazole (Flagyl) 500 Mg TABLET Metronidazole (Flagyl) 500 Mg TABLET 2014-09-23 00:00:00 No 500 Three Times A Day [facility] Vital Signs Vital Name Observation Time Observation Value Comments Source Body Temperature 2020-01-19 16:00:00 97.5 [degF] [facility] BMI (Body Mass Index) 2020-01-15 12:12:00 24.5 kg/m2 [facility] Weight 2020-01-14 22:44:00 152 [lb_av] [facility] Systolic blood pressure 2020-01-11 08:00:00 154 mm[Hg] [facility] Diastolic blood pressure 2020-01-11 08:00:00 70 mm[Hg] [facility] Heart rate 2020-01-11 08:00:00 87 /min [facility] Body temperature 2020-01-11 08:00:00 36.06 Paula [facility] Respiratory rate 2020-01-11 08:00:00 18 /min [facility] Body weight Measured 2020-01-11 08:00:00 73.664 kg [facility] BMI 2020-01-11 08:00:00 26.21 kg/m2 [facility] Oxygen saturation in Arterial blood by Pulse oximetry 01-10 08:00:00 99 [facility] 2020-01-08 10:19:00 152 [lb_av] [facility] BMI (Body Mass Index) 2020-01-08 10:19:00 24.5 kg/m2 [facility] Body Temperature 2020-01-04 16:31:00 97.5 [degF] [facility] BMI (Body Mass Index) 2020-01-01 02:55:00 24.5 kg/m2 [facility] Weight 2019-12-31 16:39:00 152 [lb_av] [facility] Weight 2019-12-13 13:36:00 143 [lb_av] [facility] BMI (Body Mass Index) 2019-12-13 13:36:00 23.1 kg/m2 [facility] Weight 2019-12-02 19:46:00 143 [lb_av] [facility] BMI (Body Mass Index) 2019-12-02 19:46:00 23.1 kg/m2 [facility] Body Temperature 2019-05-30 15:52:00 95.9 [degF] [facility] Procedures Procedure Date / Time Performed Performing Clinician Stuart almendarez Computed tomography of chest without contrast 2020-01-15 00:00:0 0 [facility] RHYTHM STRIP - SCAN 2020-01-12 09:51:20 Provider, Neeraj birch [facility] CBC W/PLT COUNT & AUTO DIFFERENTIAL 2020-01-11 09:43:00 Rudy Sawant [facility] POCT-GLUCOSE METER 2020-01-11 09:11:00 Rudy Sawant [facility] PHOSPHORUS 2020-01-11 03:50:00 Rudy Sawant [facility] BASIC METABOLIC PANEL (7) 2020-01-11 03:50:00 Rudy Sawant [facility] POCT-GLUCOSE METER 2020-01-10 22:08:00 Rudy Sawant [facility] POCT-GLUCOSE METER 2020-01-10 15:53:00 Rudy Sawant [facility] 2D ECHO W/ DOPPLER (CW/PW/COLOR) 2020-01-10 15:49:27 Lashon Sawant [facility] REPORT OF PROCEDURE - ENDOSCOPY URL 2020-01-10 14:34:09 Melo Wilcox [facility] TISSUE EXAM 2020-01-10 14:18:00 Melo Wilcox [facility] UPPER ENDOSCOPY,BIOPSY 2020-01-10 12:53:00 Melo Wilcox [facility] HEMODIALYSIS INPATIENT 2020-01-10 12:20:00 Erasmo Can [facility] POCT-GLUCOSE METER 2020-01-10 07:38:00 Rudy Sawant [facility] BASIC METABOLIC PANEL (7) 2020-01-10 05:06:00 Rudy Sawant [facility] PHOSPHORUS 2020-01-10 05:06:00 Rudy Sawant [facility] CBC W/PLT COUNT & AUTO DIFFERENTIAL 2020-01-10 05:06[facility] 2020-01-09 23:45:00 Rudy Sawant [facility] POCT-GLUCOSE METER 2020-01-09 18:02[facility] 2020-01-09 15:49:00 Rudy Sawant [facility] HEMOGLOBIN AND HEMATOCRIT 2020-01-09 15:49:00 JwRudy [facility] POCT-GLUCOSE METER 2020-01-09 14:11:00 [facility] 12-LEAD 2020-01-09 13:41:34 Unknown, Hl7 Doctor [facility] POCT-GLUCOSE METER 2020-01-09 13:10[facility] 2020-01-09 10:55:27 Melo Wilcox [facility] HEMODIALYSIS INPATIENT 2020-01-09 07:22:01 Erasmo Can [facility] BASIC METABOLIC PANEL (7) 2020-01-09 03:52:00 Rudy Sawant [facility] PHOSPHORUS 2020-01-09 03:52:00 Jw Rudy [facility] CBC W/PLT COUNT & AUTO DIFFERENTIAL 2020-01-09 03:52:00 [facility] ANTIGEN 2020-01-08 23:14:00 Erasmo Can [facility] POCT-GLUCOSE METER 2020-01-08 21:27:00 [facility]OLIC PANEL (7) 2020-01-08 20:02:00 Rudy Sawant [facility] MAGNESIUM 2020-01-08 20:02:00 Rudy Sawant [facility] CBC W/PLT COUNT & AUTO DIFFERENTIAL 2020-01-08 20:02:00 Rudy Sawant [facility] ECG 12-LEAD 2020-01-08 18:56:38 Unknown, Hl7 Doctor [facility] SARS-COV2/RT-PCR ([facility]) 2020-01-08 18:44:00 Jason Maci higgins Ivonnerodestuardo [facility] EMERGENCY DEPT VISIT 2020-01-08 00:00:00 [facility] PERFORMANCE OF URINARY FILTRATION, <6 HRS/DAY 2020-01-01 00:00:0 0 [facility] TRANSFUSE NONAUT RED BLOOD CELLS IN CENTRAL VEIN, PERC 1 00:00:00 [facility] PERFORMANCE OF URINARY FILTRATION, <6 HRS/DAY 2019-12-26 00:00:0 0 [facility] EXCISION OF ASCENDING COLON, ENDO, DIAGN 2019-12-25 00:00:00 [facility] EXCISION OF RECTUM, ENDO, DIAGN 2019-12-25 00:00:00 [facility] EXCISION OF CECUM, ENDO, DIAGN 2019-12-25 00:00:00 [facility] INSPECTION OF UPPER INTESTINAL TRACT, ENDO 2019-12-25 00:00:00 [facility] PERFORMANCE OF URINARY FILTRATION, <6 HRS/DAY 2019-12-23 00:00:0 0 [facility] PERFORMANCE OF URINARY FILTRATION, <6 HRS/DAY 2019-12-21 00:00:0 0 [facility] PERFORMANCE OF URINARY FILTRATION, <6 HRS/DAY 2019-12-20 00:00:0 0 [facility] PERFORMANCE OF URINARY FILTRATION, <6 HRS/DAY 2019-12-19 00:00:0 0 [facility] PERFORMANCE OF URINARY FILTRATION, <6 HRS/DAY 2019-12-18 00:00:0 0 [facility] PERFORMANCE OF URINARY FILTRATION, <6 HRS/DAY 2019-12-15 00:00:0 0 [facility] EXCISION OF RIGHT KNEE JOINT, PERC ENDO APPROACH 2019-12-14 00:0 0:00 [facility] STRAPPING OF KNEE 2019-12-02 00:00:00 [facility] PERFORMANCE OF URINARY FILTRATION, <6 HRS/DAY 2019-05-29 00:00:0 0 [facility] Computed tomography of orbits, sella tur cica, and posterior cranial fossa without contrast 2019-05-20 00:00:00 SHIELA DASH [facility] Plan of Care Planned Activity Planned Date Details Comments Source Instructions Anemia [facility] Instructions Diabetes and Diet [facility] Instructions GI Bleeding [facility] Instructions Infection Control [facility] Encounters Start Date/Time End Date/Time [facility] Type [facility] ID Source 2020-01-08 10:11:00 2020-01-08 15:31:00 Departed Emergency Room 1 HORTENCIA GARCIA MD [facility] [id number] [facility] 2019-12-31 16:52:00 2020-01-04 18:50:00 Discharged Inpatient [id number] [facility] 2019-12-14 15:29:00 2019-12-28 17:36:00 Discharged Inpatient 3 STEVEN HAWKINS [facility] [id number] [facility] 2019-12-13 13:07:00 2019-12-13 16:33:00 Departed Emergency Room 1 TALIA BIRMINGHAM [facility] [id number] [facility] 2019-12-02 19:35:00 2019-12-02 22:29:00 Departed Emergency Room 1 MICHAEL PETERSON [facility] [id number] [facility] 2019-05-20 21:16:00 2019-05-30 17:15:00 Discharged Inpatient 1 TALIA BIRMINGHAM [facility] [id number] [facility] 2019-01-03 06:53:00 2019-01-06 17:40:00 Discharged Inpatient 1 STEVEN HAWKINS [facility] [id number] [facility] 2019-01-02 10:47:00 2019-01-02 10:47:00 Registered Clinic 3 JORDYN COSME [facility] [id number] [facility] 2018-01-31 20:52:00 2018-02-01 00:11:00 Departed Emergency Room [facility] [id number] [facility] 2017-08-10 10:08:00 2017-08-13 16:56:00 Discharged Inpatient ER STEVEN HAWKINS [facility] [id number] [facility] Results Test Description Test Time Test Comments Results Result Comments Source Capillary blood glucose measurement by glucometer (mas s/volume) 2020-01-19 07:16:00 Test Item Bedside Glucose (test code = 05977-0) 94 70-120 Meter ID: [id number] [facility] BrookBlood leukocytes automated count (number/volume)2020-01-19 05:45:00* Test Item Value Reference Range Interpretation Comments White Blood Count (test code = 6690-2) 7.65 4.8-10.8 [facility] erythrocytes automated count (number/volume)2020-01-19 05:45:00* Test Item Value Reference Range Interpretation Comments Red Blood Count (test code = 789-8) 2.92 4.3-5.7 [facility] hemoglobin measurement (moles/volume)2020-01-19 05:45:00* Test Item Value Reference Range Interpretation Comments Hemoglobin (test code = 23673-6) 8.4 14.0-18.0 [facility] BrookAutomated blood hematocrit (volume fraction)2020-01-19 05:45:00* Test Item Value Reference Range Interpretation Comments Hematocrit (test code = 4544-3) 27.0 38.2-49.6 [facility] BrookAutomated erythrocyte mean corpuscular nataxq9467-34-69 05:45:00* Test Item Value Reference Range Interpretation Comments Mean Corpuscular Volume (test code = 787-2) 92.5 81-99 [facility] Brook[facility] erythrocyte mean corpuscular hemoglobin (mass per erythrocyte)2020-01-19 05:45:00* Test Item Value Reference Range Interpretation Comments Mean Corpuscular Hemoglobin (test code = 785-6) 28.8 28-32 [facility] Brook[facility] erythrocyte mean corpuscular hemoglobin concentration measurement (mass/volume)2020-01-19 05:45:00* Test Item Value Reference Range Interpretation Comments Mean Corpuscular Hemoglobin Concent (test code = 786-4) 31.1 31-35 [facility] BrookRDW AnbLr-Tsk1809-11-19 05:45:00* Test Item Value Reference Range Interpretation Comments Red Cell Distribution Width (test code = 83445-2) 14.5 11.7 -14.4 [facility] Brook[facility]ated blood platelet count (count/volume)2020-01-19 05:45:00* Test Item Value Reference Range Interpretation Comments Platelet Count (test code = 777-3) 208 140-360 [facility] Brook[facility] blood segmented neutrophil count as percentage of total [id number] 05:45:00* Test Item Value Reference Range Interpretation Comments Neutrophils (%) (Auto) (test code = 81054-9) 59.1 38.7-80.0 [facility] BrookAutomated blood lymphocyte count as percentage ot total hafkzpqxgw0329-75-60 05:45:00* Test Item Value Reference Range Interpretation Comments Lymphocytes (%) (Auto) (test code = 736-9) 28.5 18.0-39.1 [facility] BrookAutomated blood monocyte count as percentage of total aorspydjsv5820-86-54 05:45:00* Test Item Value Reference Range Interpretation Comments Monocytes (%) (Auto) (test code = 5905-5) 9.3 4.4-11.3 [facility] Brook[facility]ated blood eosinophil count as percentage of total qnibbaifya2517-27-09 05:45:00* Test Item Value Reference Range Interpretation Comments Eosinophils (%) (Auto) (test code = 713-8) 1.7 0.0-6.0 [facility] BrookAutomated blood basophil count as percentage of total adllodwisr4455-40-33 05:45:00* Test Item Value Reference Range Interpretation Comments Basophils (%) (Auto) (test code = 706-2) 0.7 0.0-1.0 [facility] BrookFluoroscopic procedure less than one hour atdxwmmm4137-95-30 05:45:00* Test Item Value Reference Range Interpretation Comments IM GRANULOCYTES % (test code = IM GRANULOCYTES %) 0.7 0.0- 1.0 [facility] Brook[facility]ated blood neutrophil count 2020-01-19 05:45:00* Test Item Value Reference Range Interpretation Comments Neutrophils # (Auto) (test code = 751-8) 4.5 2.1-6.9 [facility] lymphocytes count (number/volume) 2020-01-19 05:45:00* Test Item Value Reference Range Interpretation Comments Lymphocytes # (Auto) (test code = 76067-1) 2.2 1.0-3.2 [facility] monocytes automated count (number/volume)2020-01-19 05:45:00* Test Item Value Reference Range Interpretation Comments Monocytes # (Auto) (test code = 742-7) 0.7 0.2-0.8 [facility] BrookAutomated blood eosinophil count 2020-01-19 05:45:00* Test Item Value Reference Range Interpretation Comments Eosinophils # (Auto) (test code = 711-2) 0.1 0.0-0.4 [facility] BrookAutomated blood basophil count (count/volume)2020-01-19 05:45:00* Test Item Value Reference Range Interpretation Comments Basophils # (Auto) (test code = 704-7) 0.1 0.0-0.1 [facility] BrookFluoroscopic procedure less than one hour yukkmtkk3116-68-17 05:45:00* Test Item Value Reference Range Interpretation Comments Absolute Immature Granulocyte (auto (mojgan t code = Absolute Immature Granulocyte (auto) 0.05 0-0.1 [facility] sodium [facility] (moles/volume)2020-01-16 05:27:00* Test Item Value Reference Range Interpretation Comments Sodium Level (test code = 2951-2) 136 136-145 [facility] plasma potassium measurement (moles/volume)2020-01-16 05:27:00* Test Item Value Reference Range Interpretation Comments Potassium Level (test code = 2823-3) 4.3 3.5-5.1 [facility] plasma chloride measurement (moles/volume)2020-01-16 05:27:00* Test Item Value Reference Range Interpretation Comments Chloride Level (test code = 2075-0) 100 98-107 [facility] plasma carbon dioxide, total measurement (moles/volume)2020-01-16 05:27:00* Test Item Value Reference Range Interpretation Comments Carbon Dioxide Level (test code = 2028-9) 28 22-29 [facility] plasma anion myo3900-38-43 05:27:00* Test Item Value Reference Range Interpretation Comments Anion Gap (test code = 87582-7) 12.3 8-16 [facility] plasma urea nitrogen measurement (mass/volume)2020-01-16 05:27:00* Test Item Value Reference Range Interpretation Comments Blood Urea Nitrogen (test code = 3094-0) 22 7-26 [facility] plasma creatinine measurement (mass/volume)2020-01-16 05:27:00* Test Item Value Reference Range Interpretation Comments Creatinine (test code = 2160-0) 3.84 0.72-1.25 [facility] plasma urea nitrogen/creatinine mass zlrbk8542-42-67 05:27:00* Test Item Value Reference Range Interpretation Comments BUN/Creatinine Ratio (test code = 3097-3) 6 6-25 [facility] Brook[facility]ated glomerular filtration rate (GFR) tlgqzzdqegwix7243-64-65 05:27:00* Test Item Value Reference Range Interpretation Comments Estimat Glomerular Filtration Rate (test code = 889673563) 15 >60 Ranges were taken from the National Kidney Disease Education Program and the Aleisha counts include [facility] literature.Reference ranges:60 or greater: Jklmfv83-83 ( for 3 consecutive months): Chronic kidney disease 15 or less: Kidney failureAdventHealth Rollins BrookGlucose ztjqhllqvyi0643-22-00 05:27:00* Test Item Value Reference Range Interpretation Comments Glucose Level (test code = KDZ7716) 79 74-118 [facility] plasma calcium measurement (mass/volume)2020-01-16 05:27:00* Test Item Value Reference Range Interpretation Comments Calcium Level (test code = 62702-5) 8.2 8.4-10.2 [facility] serum or plasma hepatitis B virus e antibody by enzyme djjtrflibdk7223-06-25 09:40:00* Test Item Value Reference Range Interpretation Comments Hepatitis Be Antibody (test code = 58886-8) Negative Negative Performed at: [facility] [id number] Finish Mixer: Magalie Baca MD, Phone: [phone] Southerum hepatitis B virus e antigen detection by enzyme immunoassay 2020-01-15 09:40:00* Test Item Value Reference Range Interpretation Comments Hepatitis Be Antigen (test code = 50879-8) Negative Negative [facility] plasma hepatitis B virus core antibody detection by medhevwhkhx2328-24-36 09:40:00* Test Item Value Reference Range Interpretation Comments Hepatitis B Core Total Antibody (test code = 55206-5) Negative Negative [facility] or plasma hepatitis B virus core IgM antibody detection by pgbzqizlldq0972-24-32 09:40:00* Test Item Value Reference Range Interpretation Comments Hepatitis B Core IgM Antibody (test code = 46952-4) Negative Ne gative Performed at: [facility] [id number] Director: Gregor Hernandez MD, Phone: [phone] [facility] less than one hour ldkkullx2287-85-93 03:35:00* Test Item Value Reference Range Interpretation Comments Coronavirus (PCR) (test code = Coronavirus (PCR)) NOT DETECTED NOTD ETECTED SARS-COV-2 (COVID19), HIGHRISK, RT-PCRNegative results do not preclude SARS-CoV- 2 infection and should not be used as the sole basis for patient management deci sions. Negative results must be combined with clinical observations, patient his tory, and epidemiological information. Optimum specimen types and timing for pea k viral levels during infections caused by SARS-CoV-2 have not been determined. Collection of multiple specimens ot types of specimens may be necessary to detec t virus. Improper specimen collection and handling, sequence variability under p rimers/probes, or organism present below the limit of detection may lead to fals e negative results. Positive and negative predictive values of testing are highl y dependent on prevalance. False negative test results are more likely when prev alence is high.The expected result is negative (not detected).The SARS-CoV-2 mojgan t is intended for the qualitative detection of nucleic acid from SARS-CoV-2 in n asopharyngeal and oropharyngeal swab samples from patients who meet COVID-19 cli nical and or epidemiological criteria. For lower respiratory tract specimens, th e assay is submitted for authoriztion by FDA under an Emergency Use Authorizatio n (EUA). Testing methodology is real time RT-PCR. If received as separate collec tion devices, nasopharygeal and oropharyngeal specimens are combined for analysi s. Additional specimens may be split to a separate accession for analysi and rep orting as this test includes a single unit of service.Test results must be corre lated with clinical presentation and evaluated in the context of other laborator y and epidemiologic data. Test performance can be affected because the epidemiol ogy and clinical spectrum of infection caused by SARS-CoV-2 is not fully known. For example, the optimum types of specimens to collect and when during the cours e of infection these specimens are most likely to contain detectable viral RNA m ay not be known.This test has not been Food and Drug Administration (FDA) cleare d or approved and has been authorized by FDA under an Emergency Use Authorizatio n (EUA). The test is only authorized for the duration of the declaration that ci rcumstances exist justifying the authorization of emergency use of in vitro diag nostic tests for detection and/or diagnosis of SARS-CoV-2 under section 564(b) o f the Act, 21 U.S.C. section 360bbb-3(b)(1), unless the authorization is termina nicholas or revoked sooner. [facility] are certified under the C linical Laboratory Improvement Amendments of 1988 (CLIA), 42 U.S.C. section 263a , to perform high complexity tests.Testing performed by [facility] [address] [id number] Director: Blake Webber M.D.CLIA # [id number] [facility] CHEST [id number] 03:18:00 [place] [address] Patient Name: CHARLOTTE LANDA MR #: [id number] : 1940 Age/Sex: 79/M Req #: [id number] Adm Physician: STEVEN HAWKINS MD Ordered by: SHIELA DASH MD Report #: [id number] Location: MED/SURG Room/Bed: [facility] Procedure: [id number] CT/CT [facility] Exam Date: 01/15/20 Exam Time: 219 REPORT STATUS: Signed EXAM: CT Chest WITHO UT contrast INDICATION: Y EVAL FINDINGS ON CXR Y COMPARISON : Same day chest x-ray TECHNIQUE: Chest was scanned utilizing a multidete ctor helical scanner from the lung apex through the level of the adrenal gland s without administration of IV contrast. Absence of intravenous contrast decre ases sensitivity for detection of lymphadenopathy and vascular pathology. Urbano nal and sagittal reformations were obtained. Routine protocol was performed. IV CONTRAST: None COMPLICATIONS: None RADIATION DOSE: Total DLP: 498.37 mGy*cm Estimated effective dose: (DLP x 0.014 x size f actor) mSv CTDIvol has been reviewed. It is below the limits set by the R adiation Protocol Committee (RPC). FINDINGS: LINES/ TUBES : None. LUNGS, PLEURA, AND AIRWAYS: Small bilateral pleural effusions, rig ht greater than left, with adjacent mild compressive atelectasis.. Airways ar e normal. PLEURA: HEART AND MEDIASTINUM: The thyroid gland is norm al. No mediastinal, hilar or axillary lymphadenopathy. Left hilar calcified l ymph nodes. The heart is normal in size.. There is no pericardial effusion. M ild atherosclerotic calcification of the thoracic aorta and moderate atheroscl erotic calcification of coronary arteries. UPPER ABDOMEN: Unremarkable. S ubcentimeter left hepatic lobe hypodensity is too small to characterize. BONES: There are degenerative changes in the thoracic spine. Left-sided old m ild fracture deformities of few ribs. SOFT TISSUES: Mild anasarca. Small bi lateral gynecomastia. IMPRESSION: Small bilateral pleural effusions, righ t greater than left, with adjacent mild compressive atelectasis. Signed b y: Dr. Gisell Esqueda MD on 01/15/2020 3:28 AM Dictated By: GISELL ESQUEDA MD 7 Transcribed By: HARRIS on 01/15/20327 COPY TO: SHIELA DASH MD CHEST SINGLE (PORTABLE)2020-01-15 01:28:00 [place] [address] Patient Name: CHARLOTTE LANDA MR #: [id number] : 1940 Age/Sex: 79/M Req #: [id number] Adm Physician: STEVEN HAWKINS MD Ordered by: SHIELA DASH MD Report #: [id number] Location: MED/SURG Room/Bed: 1101 Procedure: [id number] DX/CHEST SINGLE (PORTABLE) Exam Date: 01/15/20 Exam Time: 003 5 REPORT STATUS: Signed EXAMINAT ION: CHEST SINGLE (PORTABLE) INDICATION: eval for pulmonary e danielle Y COMPARISON: 01/08/2020 FINDINGS: AP view TUBES and LINES: None. LUNGS: Lungs are well inflated. Mild central vascular c ongestion. PLEURA: No pneumothorax. Small left pleural effusion with adjac ent hazy opacification. HEART AND MEDIASTINUM: The cardiomediastinal reece houette is unremarkable. BONES AND SOFT TISSUES: No acute osseous lesi on. Soft tissues are unremarkable. UPPER ABDOMEN: No free air under the diaphragm. IMPRESSION: Mild central vascular congestion. Small lef t pleural effusion with adjacent hazy opacification, representing atelectasis and/or pneumonia in the appropriate clinical context. Signed by: Dr. Fawad Esqueda MD on 01/15/2020 1:35 AM Dictated By: GISELL ESQUEDA MD Electr onically Signed By: GISELL ESQUEDA MD on 01/15/20134 Transcribed By: HARRIS marte 01/15/20134 COPY TO: SHIELA DASH MD Prothrombin time (PT) in platelet poor plasma by coagulation iylxr4838-87-49 01:30:00* Test Item Value Reference Range Interpretation Comments Prothrombin Time (test code = 5902-2) 15.4 11.9-14.5 [facility] Platelet poor plasma by Coagulation sbkmc0429-48-95 01:30:00* Test Item Value Reference Range Interpretation Comments Prothromb Time International Ratio (test code = 6301-6) 1.15 Oral Anticoagulant Therapy INR Values:1. Low Intensity Therapy 1.5 - 2.02 . Moderate Intensity Therapy 2.0 - 3.03. High Intensity Therapy(1) 2.5 - 3. 54. High Intensity Therapy(2) 3.0 - 4.05. Panic Value INR > 5.0 [facility] Brook[facility] partial thromboplastin time (aPTT) in platelet poor plasma by coagulation kjoir1558-16-80 01:30:00* Test Item Value Reference Range Interpretation Comments Activated Partial Thromboplast Time (test code = 18647-7) 42.4 23.8-35.5 [facility] total bilirubin measurement (mass/volume)2020-01-14 01:30:00* Test Item Value Reference Range Interpretation Comments Total Bilirubin (test code = 1975-2) 0.3 0.2-1.2 [facility] BrookFluoroscopic procedure less than one hour fbwxfkwq5603-28-20 01:30:00* Test Item Value Reference Range Interpretation Comments Aspartate Amino Transf (AST/SGOT) (test code = Aspartate Amino Transf (AST/SGOT)) 6 5-34 [facility] alanine aminotransferase measurement (enzymatic activity/volume)2020-01-14 01:30:00* Test Item Value Reference Range Interpretation Comments Alanine Aminotransferase (ALT/SGPT) (test code = 1742-6) < 6 0-55 [facility] plasma protein measurement (mass/volume)2020-01-14 01:30:00* Test Item Value Reference Range Interpretation Comments Total Protein (test code = 2885-2) 6.5 6.5-8.1 [facility] plasma albumin measurement (mass/volume)2020-01-14 01:30:00* Test Item Value Reference Range Interpretation Comments Albumin (test code = 1751-7) 1.6 3.5-5.0 [facility] globulin measurement (mass/volume) 2020-01-14 01:30:00* Test Item Value Reference Range Interpretation Comments Globulin (test code = 69038-4) 4.9 2.3-3.5 [facility] albumin/globulin mass ccmzs6313-67-72 01:30:00* Test Item Value Reference Range Interpretation Comments Albumin/Globulin Ratio (test code = 1759-0) 0.3 0.8-2.0 [facility] plasma alkaline phosphatase measurement (enzymatic activity/volume)2020-01-14 01:30:00* Test Item Value Reference Range Interpretation Comments Alkaline Phosphatase (test code = 6768-6) 74 40-150 [facility] Ztjd6918-59-17 10:58:00* Test Item Value Reference Range Interpretation Comments Case Report (test code = 104) Surgical Pathology Repor t Case: [id number] Authorizing Provider: Melo Wilcox, Collected: 01/10/2020 02:18 PM Ordering Location: [address] Received: 01/10/2020 04:20 PM Service Pathologist: Jin Rodgers MD Specimens: A) - Stomach, Pyloric Ulcer Bx B) - Stomach, Antrum, Antral Ulcer Bx C) - Biopsy, Gastric, Random Gastric Bx DIAGNOSIS (test code = 3220) v1yimOPnICMqj7fcUQAgzXJuHfSlZaLoOmDjSsutbPSmMKzbqyPyPAvks2RuS7NcYkLpKMyxvuVgTVUu PiwpawvdAWWzTQL5vsLtIHIfXYjeSRKtPGgxQw2xfZBseZpwXxZfWNNbc1vtjhNSdocifXu5c9ijPGXp UfO5dFQkBEzpE5zdrlUreYQvOAMbOCm9dU57LHZngJ 8dtUFzUZyxmfShKUvkmgBdlsNnSfe5QNXkX9ixRMWwDGMqZ0BaUS4wMDPvIzy3CSB3DYV9kMiba1L9nC AftGNvnXxtKfAyVyMzPCIYe2XkMKc8aQquD3TsEENxQcX4zRMwPPMjCXfrRAQoTIYwirR2cN24RRflfa N4hPQma2Tuj72wa755fT3ohGKjZSJ7DSYnHOZwgYQs JHMiOZO3ZSRakAInG8a6WnMcsHMhC7O1DwAuuSKzP6F5UvAzsDTgQ0B8CjMseKXgOSMfqLBcEr9nnFSo sLGsiv6vcs46HSJ9i9LbkRcgUHV2QRZ8RoJmNn4isFCrOHIfEQ0pOmTcdTJyCGUeac99cYgmRXulujRh bC2gGkWxIK7kvQjpo64cFOHfWV3rpZ8syq1cspArHP gjjCUczKY1udkqUIC7BMWmasHkn9Fow5zeZcAktfOqQ7wrM6AyJPQxGCOsIISyHzAoamRgx2Sgf6CrqX ZguNg0p2pxBDGtAKJhrZrmv7ltZWS1YNLxQ5Y5dVRef4iyAJgiKEBkaJY7fstqMAqvZJDbamV1qzdrCU ueUJIptNR3sticKMadTLMnRzX4gczfJQybTEHwFAC0 SKfeo432WAT5QQxlPqsmURuiMOAowiKjckDzwHowGKYnQBXiYZroPYFwUKqcFFKrFDLzRbTpsTXoSAyf w1SujpRfjTiyGMSyHYh0zpZdktkazAh4lMYreEgfWJQvkKngyM0dTxAcHcPkAOzirKTqlwizSTilmxAo IEEuIFxwbGFpblxmMVxmczIwXGxhbmcxMDMzXGhpY2 ifVaIkOARecGerTRvwz1ApFUMrIFMjNPyjvhAzOFk2cbXxPUWUV39LU1xmVKedtKQsgvqiNYpcukHvLH VRWI9TNKPzCRdEMTFfOAiriFHykqzeQDqnsfKuFVcchexlTEAvGUnyJ3roOnMzTSTooMnbKQlmm0QlZI QcIZThHOspfeGjLWm7hpVdRMSAK3JHWIJcJMzhUWUm POIaYsNzDSDCJRAlWEgxHMGzBIXcOxPdbGAfWcNyPyZzhHkdoPaaQHjcDcVwUKPkYLglH2enPqMqD0Xo YPWoFhNkyUGzC2jdIwvtSIFodJdooE6fEeZmUqDsECMgXZCcWHjjOLSbCZNuEuVpyNVeYiToWkYbcNie tXfbZDohGfTrBEUmFMxaP4edDfQzR3UrQWStJtXijY GhO8ewOJvtcPZdchjyQTseggZdUIWzqXylgX6jSzMbZdPsHInaNO1vWUWsD6lvmFTnITMdMXYqY9bwBh UvuV9ehJpvIJtnNhQjEyBaAFaibWCgjRAkEC9NNpUTJM5DX53GCUQORYORSKCRXh2WCEWyRL3MA0FHLx HxK2TTFOFXEGdRWYSgLEmdREXcXDQsGjIfOSHAYMvr lMAwqxrwSHhyppOpJMvgutswYUDjJUouZ9joPxEbOWSwkHjtHPemh2ReMNZjWPIbNGkcgbBgPPa6vwBp LWCYXrUMR3YVKyGSAQ3AVTIZVJUJUOYmbMxokN6zBsOmMeZrBTohGWBpHGtghNRahphqDIezhrZpKPye rfjvDVYaDLtdZ5xoEpKnMMDzwUxkHUglh0AxLTLcXY PbDEsoshDkCGn1vbKbPY5svRruuQ9yDrZkMwOuWHSeNMJsNZlwFLHfKKIeRfBktFJrFwZeDuSylEnmuZ mtWVynDoHwIRCxTJvnL2bvOxTkQ0UqUCUaPhIwxCNeF2fiQM7QZ0YVIVGXWCIWSsIZVPiKM72RSKVZXP TdBNdKX4PLFT0WK8ITKAHKRjUFMUAOSNXRDYsSUCWB QYVUTWAUUCYJHufoXYQtqJOsRDxoi2AcpeLtdSxcAWSaYCGpCKEcSCugALUkXQLdEcBrtXgwdK2xEsLe ArJjOWKgDJEfEHbhCTDmAJSjBlQgvABkQjIwHcDjwDuyoUvcDVuxDeSqUFTfYIokL9anUlXkY4XpAODu QcKfxPKmY1khQNswrZNreohkZRmlgiMjNNJamYcsbX 5nAfCuNjOvQOjjNA5bEAUbJ5qdhGAaFDLrHXKkW2wkQeVpvS4jqVktAUpjBcYhCfBbNGtfsXIszISxFo HNTEUDVxAbCv9WAUYeUYquOBFlQFSpNfPgCVfvqRUanuvzTLqefdTdEBejkpayDCLaJEvgA2tpIyEdXK EcsHwfMOnxe1WcQYAzXWYvZCphfgUvQHa4hgWhEZQX D5MTSRYOHIwcNKHLOIkNDB8VFFusrTRwilneZGgqtbZtEVBfpiirQYWgwKTrVEfvc3GyeoYxyHypWZCc MEl8qeDeummwcEg8hBDtzKepXXRtkDppgX8aPcAcCmVpWVbuaTThxlhpEYmiqkWiZWBdRAuheAJmeqgy DIjpdqDaCAzmqiztWHQbJOxnH1crMgEvYLPlaYejYA dyc8YtYKNrEKCyJMbcenHpTRx4upSfYYQCX99DR3wdDQugdSHyepouLXxidoZyKOSITqZBJTfzQUDMU8 QEFBFrrZiwoT0tXoXtKuFbXKcqVO6gHDRtH8xcqZIaJHWvQACuJ5gwTmQiqL7tvHgaUSloPhVtOsRxAI owaIRktWJOJN2YE1kxjJHweiklWCppfxJhEUeSF3yq tLEwxodrJMbucmSsRMcnkbfyBNWbNXbuR5itSwVnWOXhhLujHHifu0SoYNEyRDWmTUztfhCzQYo0svEb MYvvyBXtCFDfHPkiGIUjSTNsKqToSKxibTOzktweFWdbybZjBYddbvysUGLmCSpvV1igAuQwOWVbvFsz IIsqq9OlNYRwKKFkDCgdhnFiBBf2yiKpEM4oxWeqwS 1iAyYfPiRaRAAdDLGnNIluOFJdSFAxOcTgoSZfVxAxXyUurKsygSoaHNlkHvNeAQJwPWeeH4bfRsYhO8 VzUTWeQzRryMAwZ2yiRDhghQUhatlzEUbcjoGuOTYDUWrCD3wNRM1YCN6HMQYcDHAMT7JYZZcVEEzsYM AEMQ7JTTZAYMUbZW0UGGIONY8ZQMPVCJPWSQktBACK HQTLRXXculMmFXKpJVquHBWxTXPhPhSrvHMwJoLgXoDnyVpjhSszQGvaKtBpUPZoCZioX2zeCcTxR6Cm DNTsXfDufPRaL3avMXtksOZydzttAKkehxWuYJOelPgfvP9iLbYwWlFwTNuoBQ9vFQJbA8exiTKwLUFx HSHyI6doJtAdoS2knYllWKicIrRnJhTtDXoiyUVmbF OsSwZPGOONBxXdZa0HFUbTYJbPZ8CGX3GRGuZRKCtIYtaxF0BYDX3QR19ODIIHXJaPBiZREZ4cV4YLJu SQNFJHMYpMGEOjrdpzPODyDNMpeYVqRQP9uDKcavRplHiteEfwiQ3gKpZkVcVlQBpctEWhbfzrXRpzvd BlUSErnBektJ0oNzIhGlOrYFyhOG8sFRMvU1apbZTg SNZwSRVsZ0jhSkOayK6ifKdqKBjhLgMpYgQqJLmvtBHavNNiVDVrOUsrKNMcNKLqYiZjPFvocDUntqfs ZKlivpWaFRvkormzDZSxFPjuN6pnDdGyLAVrwKkcHLqhs4WlPVJtPESgQWpgtnEsBEg3hdIxAQDDQHiI ANjBGWQBP6OyxBpcgZ8nBpPjEcXmCGAmZGYhYYazHL XiYREuSdJwwXKvQjMwPsRcyWezsDuiSTiwPkNwMVGcOEehK5otFtMkX0WzHCDqRfJsxQGbG8nyOKbANN mXI0mIHJBOROmOL97IPcEVGKMfZTdlEZVmEVUhPjNruRToRAVcfpliJVEiXWNjjIRfTPO7lDCkerGmzG EjhDWpDBDjBNdnZCD4jWSerysksTIhyykeXImoimNt ZMOnCSlrLLGuFJQmVhHxTs6mVODrNJokKGLqZUYqWxDqgCEqQjUbDkTxxKqbtCpfHEnrLqPkTSNmITzx D1qxTvYmE7BcURTcGsKnpBTfE2vbJ3MSNXDMXFeaPJZfYFazHZSpSWUpTnKqFyTZIH5LBTsgfTRsdmio BWmrygVgFDmkeyqnGARpWSkoW6jyBjThIXMpgDoeXR rse6OxSXPzLOPrPKdirfCrWSz6glNwMOBRW1KGWTMmYMeiQEPxEXLxHkAmJECVDLEvHKoqDMCeADTfFp YghGAhKjGzTmQqhJhjkMtuVGxnDkDwKVMaKFyeF1reFlJqD8CwCNUfCsXuvQWwQ6ygUrexPDMmuXstfI 5cZjFcZnMyMCAgXHBsYWluXGYxXGZzMjBcbGFuZzEw PlZqjJjvdGrmDTctPkNqZWPjQIihM5xnEnBhT2QjONWhKtFgtCKeI7vpAQuzgGPbekvuKFgvxsHnUOUy xDrzmR7fRcRmTjIuELruDD4pPCVhT3gtoHZjVYBpVSEwJ1qsIuIfxS2itBqvQNfmNrDfUmZdSKzppIEy oHWxFY7XLjPXITSwFBljQDDqWLHiFrOgSECIVKSNPK rQBXbEANCkSOwfEGXvWXBwXjYfeUSsAkGrWmEnpShxvYpvEEjnAfUsOUTvMToxC9jvKtKuT6CbVVOgGr TsiMXbM1sgDL1RR72JELLRYWKDQVNWUl6JEZDhDC0AW2IBRvHcI4TXAJPRYVdYHFHeOQofROYmBGRmAs TtyXWjZEFxuGgfgA8fJuThGjToWBuhDU8xFUJvE2dg rPWvYFJqLTDzP6sfTiHzzA3piMyvJJmzXdNyNdTkBDhjdSRhhHYdQREkTYnuEDJyBGAiZgWnPBoyhYEb jmdrIDiknnNuUXyjctarJGSbWPfhS0btQlMeCWEwpOlwHSxqx7HgTOHfCZWmWZpukkHzNIy1unVhLWVF BIuNLHlVEWDSQ2DbQCFTYHHHLrRFXSMLXSIQXJ3BTC CTYyxIJboXAVJfGhruM0HZNJoEWuQZJSFYXuqzC8AXEV7xrVKzQDOyydFra4ZnNAWyQTE8BVjhKBjftU gxnUQvuqusMKohceGeIASpDQroWLVfYSQeThLaRUfdtOOslwejVBeenfRiGFtgixhbYOUyTGlrS9dpAb OmXBQgiCggKRfbm7QmWAGkAAGqOBlmcfIaOYu2pqOt WS1unCfezU9hQmOrEfJoLQCuTFJyOVjgMYRmSWXsWhOewIMyTjLeSdZyzWhauDwkYLmcAcCcDYGmYJfq D9swOfQiT9HhJQNuEnIxhMZbI6kdXZ2BL0UQUWHTNLPMUhHTBvUTR8AUXfSXOR0OJSFJDUMZGFYrPDBE C9KVDGXYPIuoSPYYCTnFNW1IGQloiMBwjzeaLLyjyx DxVIIkatnrZHZ2j6jilWBwAGHgxPVpHYNeWDixizIcQTPoPowklowwVINlOOZ6wuPuRSCjHRkoXCEoLX gxNk5tlLQwjZjmOfYdLRQoq4huiaMPxkjwfFt8f5gfEPXbZtH0iRLdZOzzO6apesSrvZQkDJKkLSz7fJ 19IFAoyI9rsFGnMWulkiQeCnJ2UAzcODPxObJ0MKEm yRTaJGTkI8nsFIKzYNfaWVWjOVzdgVPlJOK0uCeem1X3iNEpyIQvvEoiUbSbIoBiUhDFl1LeCIo9jFzb G1TfNAZgHwK5fFEnIBGrBIcmWTLmQPLqrgI6eP85KMgddlM9pMLjg1Liy50ff125kS9lvTBxPSC6UGXc LNWrsXIqMUGwOZI0FLBrdZWoX3vgWMJcPX3iksvjTF bkPMbzPUNttOM9MORjdQTnI6WgRBCfHAdtIOWswqn7YwVjVx8ceWOrzKaySUdpv1jyg2scxUJoNbt9FV RwGnInTagbNRxse1Kxy8eaKCBwwe5cVOB3nALtlIqmq9Z9jETtDLIpfQHzORRnOB2sfGJwRHAvtT6dat ajPTDsYlVgqfrkNJRbwWbmooSqEt9yhFehMKI0HCat F8eyvY2cZoZ0ZGkoF8wzjG4wEGt9NYybROKpuBT8wpG1GWQdiVDrO5SbnK1sUPCnSI5cuuf1a9piQEH5 ECqdXYQwFgF2yrA8DFRfbQQwFEXryXsqURvhk910QFI5ZwVlFSSwk4VhD0XcrFrvR68uuSgnF38zHTIv kRhyiA0vkOsgzF2kNiQzOdNsTJlnkBloMC7tJGKzO4 nzdKLlUBOkEVPkZ8idLqXksV8tdKhoSTplddUsXZIwFyd1HDCtjFYqCQIxRei2ADCuRQTtY74omjxeIZ A9hC1aa9vcu6WlOEwqAKY8ZPZtq53kOSnbjcA1EWoxNx9nEIGtFgk9CQkiTEL9qH== CPT Code(s) (test code = 3357) h5vzwYSjACJmlUWfRaOoHDBgZFZjy3xfYOOinFTiTiKdDsUbOsHrCtavlUSjUWAxFsHbd4ept639qCDh d4chWLUuSrZ0pFEnCWXrdZQzH139w5bri5xssoQlgEB4OBDhOTK8WWdhjkEqqhE6KRhnxXGgTvS9NXlo pzJzRQzivuRdyfYjRph9ZLKnW722KMG8iTndg1kqXN M5QKIpFXRsEfQrIw1qgXFkJ241MPBeZOHRGUTuuHp4MSLuxmNzakWonSANb511D560o6kpIWLdvgOuvI fMfywrx0efS591PAGoaDKzxsCoQaOdRQQcjGKohRE6WYAvBA0bypkgIbVmGM9hlytgSsOvET8vpfq5Ca McKF8hwzyhIhEfJCizKMGhfoheZEZnb8BzirxyRH4c H1Xqv0C6pZ1iiXZmGGWylLBrJsSoEHWghm4qhRTtXGpyp3JrJGI5zzV9kDJxlOUnDLCeON37Eyzlf8Ic WxsvSRM8BPBcjrWje4Vaf2hcExCydcBxR4hnV0VgTTXvOTKhFCZpQwZudmIlx8Kxn3PabLCnxDt4n8pw HQAaSPByeYkbh2hcHZF4YJTyH7Y4kEWxd3aaLNcfTR CrjMQ6kmqjXXdhNZZyazH9psfcGQssYEXgyOX8jfodJCvoTYReCsL0pzfiRRvrSREfMMR8BEybk371BZ N9WXgsGtecOQrzOKJtppFkykQdvXkqRXIlXTRlEGcmATWaGIxrXOAhUHCePxZlcIapyDkqoM6wMzCjRl NhARqjRS7vQQGiO6yooTUnWKHaIRLlH0nfBjJdiH2m mNxgGLahjdHzUAi1PiR4ZSYmyCQnBLp0QmHgTKYqmJHypM== CLINICAL HISTORY (test code = 3356) t6tllAFnGMXfmLWnLkNyPVLvVQUho9otEFQxfUEjUqMnMuEuVsNnRftmqCZtUTNxKrPmz3loc452pSZv o4vfJJOrLcM9sCVrEBUpkBViB577w5lwj7oahkAqlQQ3AAMfUSB6NHrzzzVsynU9RCuiwGWlOtX5IAfo pnSrKDpjhqMoziWzZcu1HLHvP437USU7yBulp1sfOE Q7HVFsVXUhAlRoGe9hkIPaK014YCDrDQPFWOPixWh3LDKpwxYtnkGhiOTDp092Z281q2ntOIImosVfmI fGhwfxy3diL303MMUhnYPycjKsUhRzGMVusXRfiGG2GJAzPG5yatlhTfVvAT0zoaztSlIpOF9jmke6It SiCR8zsdrxHuAuWCcuVXRsvfodHZAma9GesordQY5p Y7Crg0M7rW9vvOOhYVLmqREqRvXzPLKzuj9isURnODmuo9ZaBQL5ghZ5pFBnrJPsZMEqCW49Upcoq5Is WxkeEFX3SKCqccTif5Nxi0orPdLrjbYmI6ftL1RhYQFdUXRvSARjFgOjwjCgt6Uto8WylAUibMn6h7ob NHUlVIFgyCluw7dsNUR5JJVjW4Q3jIOoi2fxCOzcTV IdcDA7gdqpRNydJFMzihR8bkvqBMqpQZKfrIF6cyzjRLdmOSOkWqE5wtkcDQixOCRtJAT1ZVrps707GB R7HPnqXszkKMipHEKzkxJkocEkkGebKGJeXXGaMGzjSNUgDMvoRUJuJFDlSgCczCkpqVjqvG8zHcHgAz AsROpdZT4sEWSgW0xbpRIrHKTvJMPcS9tnTlYxnF4igThaEYqynlByFEjqxKR0LI2wp3wlGImdANY3 SPECIMEN SOURCE (test code = 3377) e2lekXVaFPYycPVkZhSfPIJcVHCuc1jaNSGvcOQoDaFeBsMnNyHfWrfsbYFmDXOjJrFrh3apf837hUAt u8zfRYVjIqY9xXNwCLMcrQRhG623f7djc0eiqrDxeFG9UICdPSD9QXvmpsBgxyJ9DNpelZFiYjX8DXuq grRyTWyecaUnflSlEhp8TZObN572LRR4bWisg9ugOY K4BKCyIUNnGyByIa6hzYPwR090LXTgFNJNFIGgbOi4YUXlbeNpvxGubIZAr573R673m6fqIQBndtXtnC gWvvpuv9eaJ966WRBxdUCidhYfTuQiWEPexJYalGI7JCYvTP8cwhjzHjQnTT7xaezzUsFwMN2jwtf5Eo BpAI4jodhrDaZuWRtzQMDtknucCGQlq0XtddneQT8g N8Wsw1M5eN7ojKYnHZWbeGWqLkLxWEPkzn2xoPGlQTsqk0UjUTW0rdD8hTUjeIPoFYJeXJ66Mfcmo1Mq HazmNHK0VFCoppRws1Hrv1pjGoEoveDqR4ztG1GtLGLbYIXoRBIaYrNqpvWmx5Wwa7JhsOWqwLo1r8es PYKaRIYxpQueq1qqSJG1YJJcM1F4nPDdc8rhWDcqZW PerJC1ujtdLCjiMIIurkX8qysaUNwzECVndTN9qavbUGnkISHnUkK2wzqjONylMNKwMAP6ENhqo403ER U0DJlhVssdJToyPYNytdPuiqLinXzaHFMpKPUuFCnoHIXqZSwxVKUlATJvLcKepRlfiRzcjT8tTjGmKd OyQAacME8iPBQgQ7hoiHRyDDCdHTUkA2jxFhEpiG3e mAcbZUrsqaRnKZEdSTE8eG6zfAAeqMqfWZKdPxdzmCX7IiKKQnXUqqOwDYdjwNniOTWtDleioFU9EdYB UzINCC5cx63kK6AtjDCeShXcmQ9lw0qsfCFrqB== GROSS DESCRIPTION (test code = 3366) d4lykPKrUYGakEOqGcJqWBNxUZEuy9czHCXslCVlUjNySmEmMuSsErhxhKMzQZGvBgEqp3tda958oOFw b5owCBQoRoH2xOJqBQCljIWaQ619BNAgDKblx3pwm5YjJPLinLFtx5D0KKDPakifeGq5cQojH88nh1C0 AckjJ6zmMEDvLYdtSDWvFAxfeMRuGOR8DHPoDTN2SM ncfjCjtjH2DPqilUTeQzC1BBa4o6pvnOrsNNRmQLO3s9awJQordqPyMV6rmz8kbLm6u3qvriAbLNLlWC XqdZVTRWHmL0HniTajMj2aoMu4yZqdWnxbJRF6Wvt4EP4edq66apj4bIfsXUJerezaFjJ6SDxkTLJocw kzHAw3NMlzJEOikNhuQVqdTUAkrayuJPnpHVAluFck NOxzJUMsLqdjDJznSIXwAJR1MVjuy339GBV9NEsrr3rmu3urqHFjGrq2CKAaGvHrUjzzJMldt6Cvv2ra JFYqen8hQIA0cZWvnZotj7S5hTBuHJGnlHFrmxVhOCNcAvL5ZApmAT4rxp35DFMvVOG1ko3fsFIfrDxw teQssUIfNKhxC8FhVIYdv316KGZfQ6IqGQRqv9Y1sf NdBkNaGFUvyJL2gqZ3SGJpZTj0eXYshpP7jaWplWHqM3njaZ96RsScjYFiO7CwkR19SzHkyHGlZ4SqnI 00DcQuzRQxM9HycW38SnCrySEgLRHwuPZuQc8tqEWhyKIbc7TvdUDnJSooB41sw795GZDchyXbR9bfhI FpblxwbGFpblxmMFxmczIwXHFsXHBsYWluXGYwXGZz GbJyzUwjtZ5yKgWlAqRjFWBAeCTtK7MyRRGhaoLjYDPvbFBrREShobY8yCVpWBPgSSP1zdJcvBaxsS5h AaZzAiPqSNQbOQTkiFGyHUsvyEcgtPaqHAYpyGmiphWaevNmMF2eAUCqY0Ifq2Ojs65jmsNxAtVpDcrg QNWqgWKtKZKvSAKjL1LowoFaBIqeXBLrkw1ihFvcXL zgXqLaSDRkHpR4i51zR7hbDWdwZLRaLY73XDfqYE21LDnkWU1xUIMpIEUcD0YtQ7N4GRFyHqLjkNf2gO VwCVUvidHcR0WcMUEblPTmUZFjaznlbCtol5ZqTKMlZPdbIM54koT6kLxvlTJtwhPdv1OqzFo1uEFkIL deYGFirT7rjM8fJ7Zpw0U3uDSaLYCaWMYaqzukKSLh Ga3tGyVySQh9OCKvuI5vFx7xlDJlvJ6deOMyRQxkFAIro8ImdOJzxPReuoLrsY0fQLrjMDGlTD81XJsy HY36LHibUU2pCPRlAGOtM0VeL5G2KDJwMvYtlhSmV8HeYGRcbRCnHKUwjzuujIxpf4KiADBzOByfTY32 kzA1cEutkXNacqQer9NfpMb4oGHgMAhxYSPvnD3fyU 5jW3Zax5S4qXGfAeSvISdbTADckWMhXHMdVPJnR6JmzrFoOVnyXMOpqd5saVfiMAmtDdIcDCPlJrbux5 NmaMItNvpjlDV9CrPbbzGsLtKbfKBrBkPrpYIwIvDoJ11aPSiryxPbVAPbYA6aBBtiduCgkCjiikG3RT 6awNdbwcL2aWGkfLDsWkKsZ11bcnFrLOkyoYDpANKf ORFtfLFdkNB5XSPjzJ2qlA56cmOgxxCeYZExXTP9TKQIYY8uFG0HO3TlJBYsSEwzXBXaWUQuZkGynBJt fQ== MICROSCOPIC DESCRIPTION (test code = 3371) b1troYFyZOAmlYYjYlQyOBTkESJlo1qhGFTlpOIkQaDsUlYnMiKaCmezdZYhVVXrKdXqz6hdn006fRNq c4isKAAnRiC6iHPmVUIpxOKfA751GPYgMIqwu8ike1VmCXKaiRHlz4C1TJJCfjohwRj8yHilT25cw0C2 KawzI4qxDIYcMZfqTUZeUHbqjGBaZHV3UIYwMEK6YP fpkpUgobJ1TTjxgFPxWhL4MWt3n3hfjGcrJSSzKRY6g1nxTUvdzxNiRZ9brx5ohRh9r2kdivYyMQJwSG DdcNTQMYDvU7PorHtuKn0pqGp2uMmwHpcsEKS5Ddx7AK6xyw51aff1vEqhWSWxgiujZnF0RIgnLHGaiz hqHLa9YFucBLDinAecFLtmGCAmdqmrVAidOYJnwWat FEpmEFOaJkvqJVsnSUHdZOY7ICkft219TJW6TCxkj9tem7fudKFzIrs0CFDdEtMbNsirAFqhr0Vfo1rn GWHkml6mQXY1zTPdyDbzf5T2oNOeUPKofBXvohZsZOVrvw97vOSswVUjxARcea1xtlVhsUImgVYzHVX4 hNIwbmIeJHYlsDRnZTLoNY1roDIlIGZxfO3euwcxMI MqHjKcryrcQFBtgGhjnqEfRx9fmHqtFXE2HNzaA6fndJ1cIvG6TOvmN0xuvA3pFCg3GRptrYF1KEDzxB 7pNU0xdvbnj3hfYwOcZM0mqfsrf0ieRfFdOW6ifaf6w1adQhMjRQ4bbfmnp4cuSpOuTIhvIPCnytqfPJ Yzh7EphfzxYXYfp9OsL6RvlUxoO38qpCbfJ71hPQQi lCyrfM4qmWcnuE6rEaBnQzBbHTxrpUnwiICcejaxCZzebuGaLGEkGDsaLSWvSWRrGsPvIAMgWe5wmOIr LlxwYXJccGFyfQ== SPECIAL STUDIES (test code = 3376) [file] MxdRSuBdIfPhJclVsbsJtbKbazQwWaJVWuIEdkB0zgLqKiJvOdTgaaPAU7sT== [id number] 10:58:00Surgical Pathology Report Case: [id number] Authorizing Provider: Melo Wilcox, Collected: 01/10/2020 02:18 PM Ordering Location: [address] Received: 01/10/2020 04:20 PM Service Pathologist: Jin Rodgers MD Specimens: A) - Stomach, Pyloric Ulcer Bx B) - Stomach, Antrum, Antral Ulcer Bx C) - Biopsy, Gastric, Random Gastric Bx A. 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 STOMACH, "ANTRAL " ULCER, BIOPSIES: - POLYPOID OXYNTIC MUCOSA WITH PROTON PUMP INHIBITOR THERAPY EFFECT - NEGATIVE FOR HELICOBACTER PYLORI ORGANISMS BY WARTHIN STARRY STAIN - NEGATIVE FOR DYSPLASIA, MALIGNANCYC. STOMACH, RANDOM BIOPSIES: - ANTRAL AND OX YNTIC MUCOSA WITH CHRONIC INACTIVE GASTRITIS - NEGATIVE FOR HELICOBACTER PYLORI ORGANISMS BY WARTHIN STARRY STAIN - NEGATIVE FOR INTESTINAL METAPLASIA, DYSPLA RACQUEL, MALIGNANCY Signing Pathologist Direct Phone Line: [phone] gabriella signed by Jin Rodgers MD on 01/11/2020 at 10:58 [id number] Hematemesis A. Pyloric ulcer biopsy; B. Antral ulcer biopsy; C. Random gastric b iopsyThe case is received in three parts labeled with the patient's name, access ion number.A. Received in formalin labeled "stomach" is a 0.4 x 0.4 x 0.2 cm agg regate of multiple irregular pritchard-pink tissue fragments which are submitted in to to in cassette A1.B. Received in formalin labeled "stomach antrum" is a 0.4 x 0. 4 x 0.2 cm aggregate of irregular pritchard-pink tissue fragments which are submitted in toto in cassette B1. C. Received in formalin labeled "gastric biopsy" is 0.3 x 0.3 x 0.2 cm aggregate of irregular pritchard-pink tissue fragments which are submit nicholas in toto in cassette C1. MW/plPerformed.The interpretation of this case incl uded the use of immunohistochemistry or special stains.Control Slides Examined: In-house known positive controls were evaluated along with the test tissue. [facility] alongside of the patients sample show appropriate stainin g. Internal positive and negative controls when available are evaluated Immunohi stochemistry technical testing was performed at [facility] , Pathology Laboratory where it was developed and its performance characteristic s were determined. It has not been cleared or approved by the U.S. Food and Drug Administration. The FDA has determined that such clearance or approval is not n ecessary. The test is used for clinical purposes. It should not be regarded as i nvestigational or for research. This laboratory is certified under the Clinical Laboratory Improvement Amendments of 1988 (CLIA-88) as qualified to perform high complexity clinical laboratory testing.CBC with platelet count + automated diff 2020-01-11 09:55:00* Test Item Value Reference Range Interpretation Comments WBC (test code = 6690-2) 10.3 3.5- 10.5 K/L RBC (test code = 789-8) 3.48 4.63- 6.08 M/L L MCHC (test code = 786-4) 30.9 32.3- 36.5 GM/DL L Hematocrit (test code = 4544-3) 33.3 % 40.1-51 L MCV (test code = 787-2) 95.7 fL 79-92.2 H MCH (test code = 785-6) 29.6 pg 25.7-32.2 RDW (test code = 788-0) 15.2 % 11.6-14.4 H Platelets (test code = 777-3) 286 150- 450 K/CU MM MPV (test code = 85673-2) 9.2 fL 9.4-12.4 L nRBC (test code = 413) 1 0- 0 /100 WBC H % Neutros (test code = 429) 64 % % Lymphs (test code = 430) 23 % % Monos (test code = 431) 9 % % Eos (test code = 432) 2 % % Baso (test code = 437) 1 % # Neutros (test code = 670) 6.64 1.78- 5.38 K/L H # Lymphs (test code = 414) 2.33 1.32- 3.57 K/L # Monos (test code = 415) 0.95 0.30- 0.82 K/L H # Eos (test code = 416) 0.15 0.04- 0.54 K/L # Baso (test code = 417) 0.10 0.01- 0.08 K/L H Immature Granulocytes-Relative (test code = 2801) 2 % 0-1 H Lab Interpretation (test code = 58622-0) Abnormal [facility] W/PLT COUNT & AUTO [id number] 09:55:00* Test Item Value Reference Range Interpretation Comments WHITE BLOOD CELL COUNT (BEAKER) (test code = 775) 10.3 K/ L 3.5- 10.5 RED BLOOD CELL COUNT (BEAKER) (test code = 761) 3.48 M/ L 4.63-6 .08 L HEMOGLOBIN (BEAKER) (test code = 410) 10.3 GM/DL 13.7-17.5 L HEMATOCRIT (BEAKER) (test code = 411) 33.3 % 40.1-51.0 L MEAN CORPUSCULAR VOLUME (BEAKER) (test code = 753) 95.7 fL 79. 0-92.2 H MEAN CORPUSCULAR HEMOGLOBIN (BEAKER) (test code = 751) 29.6 pg 25.7-32.2 MEAN CORPUSCULAR HEMOGLOBIN CONC (BEAKER) (test code = 752) 30.9 GM/DL 32.3-36.5 L RED CELL DISTRIBUTION WIDTH (BEAKER) (test code = 412) 15.2 % 11.6-14.4 H PLATELET COUNT (BEAKER) (test code = 756) 286 K/CU MM 150-450 MEAN PLATELET VOLUME (BEAKER) (test code = 754) 9.2 fL 9.4-12 .4 L NUCLEATED RED BLOOD CELLS (BEAKER) (test code = 413) 1 /100 WBC 0 -0 H NEUTROPHILS RELATIVE PERCENT (BEAKER) (test code = 429) 64 % LYMPHOCYTES RELATIVE PERCENT (BEAKER) (test code = 430) 23 % MONOCYTES RELATIVE PERCENT (BEAKER) (test code = 431) 9 % EOSINOPHILS RELATIVE PERCENT (BEAKER) (test code = 432) 2 % BASOPHILS RELATIVE PERCENT (BEAKER) (test code = 437) 1 % NEUTROPHILS ABSOLUTE COUNT (BEAKER) (test code = 670) 6.64 K/ L 1.78-5.38 H LYMPHOCYTES ABSOLUTE COUNT (BEAKER) (test code = 414) 2.33 K/ L 1.32-3.57 MONOCYTES ABSOLUTE COUNT (BEAKER) (test code = 415) 0.95 K/ L 0. 30-0.82 H EOSINOPHILS ABSOLUTE COUNT (BEAKER) (test code = 416) 0.15 K/ L 0.04-0.54 BASOPHILS ABSOLUTE COUNT (BEAKER) (test code = 417) 0.10 K/ L 0. 01-0.08 H IMMATURE GRANULOCYTES-RELATIVE PERCENT (BEAKER) (test code = 2801) 2 % 0-1 H POC-Glucose [id number] 09:22:00* Test Item Value Reference Range Interpretation Comments POC-Glucose Meter (test code = 1538) 87 mg/dL 70-110 : TESTED AT [facility] [address] [facility], [address]: Wellness Program Administrator/Photographic Lithographer ID = [id number] for Paramio, Jane Lab Interpretation (test code = 01691-3) [facility] [id number] 09:22:00* Test Item Value Reference Range Interpretation Comments POC-GLUCOSE METER (JONNAKER) (test code = 1538) 87 mg/dL 70-110 : TESTED AT [facility] [address] [place], [address]: Wellness Program Administrator/Photographic Lithographer ID = [id number] for Jane Dai 2D Echo W/Doppler(CW/PW/Color)2020-01-11 09:15:17Ejection FractionSLEH ECHO HEARTLAB MKCKESSON CPACSInterface, External Ris In - 01/11/2020 9:15 AM CDTTransthoracic Echocardiography Report (TTE) Demographics Patient Name CHARLOTTE LANDA Date of Study 01/10/2020 KIKE Gender Male Visit Number [id number] Race Unknown Room Number 1419 Number Date of 1940 Referring Physician Rudy Sawant MD Age 79 year(s) Sonog rapher Brandi Tirado Interpreting Shaka Shah MD Physician Fellow Prabhu Campos MD Procedure Type of Study TTE procedure:2DTRAYO W Duong VILLAVICENCIOPLER(CW/PW/COLOR) (Routine) Indications:Sustained or non sustained Afib, SVT o r VT.Clinical HistoryHTN, DM, ESRDHeight: 66 inches Weight: 69.4 kg (153 lbs) BS A: 1.78 m^2 BMI: 24.69 kg/m^2HR: 111 bpm BP: 126/64 mmHg Summary 1. Normal left ventricular chamber size. Normal wall thickness. Normal overall left ventricular systolic function. No apparent segmental wall motion abnormalities. Grade 1 ross stolic dysfunction (impaired relaxation and low-normal LA pressure). LA size is normal (16-34 ml/m2) . 2. The right ventricular chamber size and systolic funct ion are within normal limits. RA size is normal. Estimated peak systolic PA pres sure is 25-30 mmHg (normal range). 3. No significant valvular abnormalities. S ignature Elect ronically signed by Shaka Shah MD(Interpreting physician) on 01/11/2020 09 :15 AM Finding s Rhythm/BP Regular sinus rhythm during the exam. Left Ventricle Normal left ventricular chamber size. Normal wall thickness. Normal overall left ventricular systolic func tion. No apparent segmental wall motion abnormalities. Grade 1 diastolic dysfunction (impaired relaxation and low-normal LA pressure). Left Atrium LA size is n ormal (16-34 ml/m2) . Right Ventricle The right ventricular chamber size and systolic function are within normal limits. Right A trium RA size is normal. Atrial Septum Normal interatrial se ptum by available views. Aortic Valve Mild AoV cusp thickening. No evidence of aortic regurgitation. Mitral Valve M ild MV leaflet thickening and calcification. Mild mitral annular calcification. Trace mitral regurgitation. No evidence of mitral stenosis. Tricuspid Valve TV stru cture is normal. A trace of tricuspid regurgitation. Estimated peak systolic PA pressure is 25-30 mmHg (normal range) . Pulmonic Valve Normal PV structure and fun ction. Aorta Aortic root size (SInus of Valsalva diameter) is normal . Proximal ascending aorta size is normal . Pericardium No significant pericardial effusion is visualized. IVC/SVC/PA/PV/Pleural The estimated RA pressure by IVC dynamics 0- 5mmHg . Chambers/Structures Left Atrium LA Volume: 56.64 ml LA Area: 14.06 cm^2 LA Vol. Index: 32 ml/m^2 Left Ventricle LVIDd: 4.47 cm LV IDs: 3.86 cm LV Septum Diastolic: 0.73 cm LV PW Diastolic: 0.85 cm LV FS: 13.7 % LVEDV Keene's:114.5 ml LVESV Keene's:36.34 ml LVEDVI: 64 ml/m^2 LVEF Keene's: 68.3 % LVESVI: 2 0 ml/m^2 LVOT Diameter: 1.89 cm Right Ventricle RV Diast Dim.: 2.67 cm TAPSE: 2.41 cm Aorta Ao Root S of Daysi. : 3.17 cm Doppler/Quantitative Measurements Mitral Valve MV Peak E-Wave: 0.71 m /s MV Peak A-Wave: 1.22 m/s E/A Ratio: 0.58 Mean Velocity: 0.77 m/s Peak Gradient: 2.03 mmHg Mean Gradient: 2.59 mmHg Area (continuit y): 2.49 cm^2 MV VTI: 22.89 cm MV Reyes. P eak: 1.19 m/s Tissue Doppler E' Septal Velocity: 0.08 m/s E/E': 9.37 E' Lateral Velocity: 0.11 m/s Aortic Valve Peak Velocity: 1.88 m/s Mean Velocity: 1.07 m/s Peak Gradient: 14.15 mmHg Mean Gra dient: 5.87 mmHg AV Area (continuity): 2.07 cm^2 AV VTI: 27.58 cm AV DVI: 0.74 LVOT Peak Velocity: 1.25 m/s Peak Gradient: 6.24 mmHg Mean Velocit y: 0.66 m/s Mean Gradient: 2.32 mmHg LVOT Diameter: 1.89 cm LVOT VTI: 20.35 cm LVOT Area: 2.81 cm^2 LVOT SV:57.06 ml LVO T CO: 6.33 l/min LVOT CI: 3.56 l/min/m^2 RVOT RVOT VTI (PW): 2 1.54 cm Tricuspid Valve TR Velocity: 2.47 m/s TR Gradient: 24.31 mmHg [facility] Metabolic [id number] 08:49:00* Test Item Value Reference Range Interpretation Comments Sodium (test code = 2951-2) 137 meq/L 136-145 Potassium (test code = 2823-3) 4.2 meq/L 3.5-5.1 Chloride (test code = 2075-0) 102 meq/L 98-107 CO2 (test code = 2027-9) 27 meq/L 22-29 BUN (test code = 3094-0) 17 mg/dL 7-21 Creatinine (test code = 2160-0) 3.72 mg/dL 0.57-1.25 H Glucose (test code = 2345-7) 95 mg/dL 70-105 Calcium (test code = 50947-0) 8.0 mg/dL 8.4-10.2 L EGFR (test code = 17808-1) 16 mL/min/1.73 sq m ESTIMATED GFR IS NOT ACCURATE CREATININE CLEARANCE IN PREDICTING GLOMERULAR FILTRATION RATE. ESTIMATED GFR IS NOT APPLICABLE FOR DIALYSIS PATIENTS. ADRIENNE (test code = ADRIENNE) Wellness Program Administrator ID - JUAN MIGUEL L Lab Interpretation (test code = 21388-0) [facility] [id number] 08:49:00* Test Item Value Reference Range Interpretation Comments SODIUM (BEAKER) (test code = 381) 137 meq/L 136-145 POTASSIUM (BEAKER) (test code = 379) 4.2 meq/L 3.5-5.1 CHLORIDE (BEAKER) (test code = 382) 102 meq/L 98-107 CO2 (BEAKER) (test code = 355) 27 meq/L 22-29 BLOOD UREA NITROGEN (BEAKER) (test code = 354) 17 mg/dL 7-21 CREATININE (BEAKER) (test code = 358) 3.72 mg/dL 0.57-1.25 H GLUCOSE RANDOM (BEAKER) (test code = 652) 95 mg/dL 70-105 CALCIUM (BEAKER) (test code = 697) 8.0 mg/dL 8.4-10.2 L EGFR (BEAKER) (test code = 1092) 16 mL/min/1.73 sq m ESTIMATED GFR IS NOT ACCURATE CREATININE CLEARANCE IN PREDICTING GLOMERULAR FILTRATION RATE. ESTIMATED GFR IS NOT APPLICABLE FOR DIALYSIS PATIENTS. Wellness Program Administrator VARUN - JUAN MIGUEL [id number] 04:26:00* Test Item Value Reference Range Interpretation Comments Phosphorus (test code = 2777-1) 2.1 mg/dL 2.3-4.7 L ADRIENNE (test code = ADRIENNE) Wellness Program Administrator ID - JUAN MIGUEL L Lab Interpretation (test code = 58641-8) Abnormal [facility] Center[facility]2020-06-11 04:26:00* Test Item Value Reference Range Interpretation Comments PHOSPHORUS (BEAKER) (test code = 604) 2.1 mg/dL 2.3-4.7 L Wellness Program Administrator VARUN BULLARD LPOCT-GLUCOSE [id number] 22:19:00* Test Item Value Reference Range Interpretation Comments POC-GLUCOSE METER (BEAKER) (test code = 1538) 125 mg/dL 70-110 H : Notified RN/MD: TESTED AT [facility] [address] [facility], [address]: Wellness Program Administrator/Photographic Lithographer ID = [id number] for SARAN LANDA POCT-GLUCOSE [id number] 16:05:00* Test Item Value Reference Range Interpretation Comments POC-GLUCOSE METER (BEAKER) (test code = 1538) 65 mg/dL 70-110 L : TESTED AT [facility] [address] [facility], [address]: Wellness Program Administrator/Photographic Lithographer ID = [id number] for GERARDO BUTT ECG 12 [id number] 12:25:35Interface, External Ris In - 01/10/2020 12:25 PM CDTVentricular Rate 157 BPMAtrial Rate 314 BPMQRS Duration 70 msQ-T Interval 312 msQTC Calculation(Bazett) 504 msP [place] -65 degreesR [place] 38 degreesT [place] 239 degreesAtrial flutter with 2:1 A-V conductionST & T wave abnormality, consider inferior ischemiaAbnormal ECGWhen compared with ECG of 08-JAN-2020 18:56,Atrial flutter has replaced Sinus rhythmVent. rate has increased BY 62 BPMST now depressed in Inferior leadsST now depressed in Anterolateral leadsT wave inversion now evident in Inferior leadsNonspecific T wave abnormality now evident in Anterolateral leadsConfirmed by MD DEVLIN RAYMOND ([id number]) on 01/10/2020 12:25:32 [facility] 2020-01-10 12:20:00Destiney Ness RN 01/10/2020 12:55 PMProcedure tolerated well. Vital signs stable.HD duration 3.5 UF 2.5 L via left upper arm AV Fistula. Lab Results Component [...] Pulse: 99 Resp: 15 Temp: SpO2: 100% [facility] [id number] 07:48:00* Test Item Value Reference Range Interpretation Comments POC-GLUCOSE METER (BEAKER) (test code = 1538) 76 mg/dL 70-110 : TESTED AT [facility] [address] [facility], [address]: Wellness Program Administrator/Photographic Lithographer ID = [id number] for GERARDO BUTT [id number] 07:27:00* Test Item Value Reference Range Interpretation Comments PHOSPHORUS (BEAKER) (test code = 604) 2.3 mg/dL 2.3-4.7 Wellness Program Administrator ID - STEPHANIE MBASIC METABOLIC [id number] 07:27:00* Test Item Value Reference Range Interpretation Comments SODIUM (BEAKER) (test code = 381) 133 meq/L 136-145 L POTASSIUM (BEAKER) (test code = 379) 4.1 meq/L 3.5-5.1 CHLORIDE (BEAKER) (test code = 382) 99 meq/L 98-107 CO2 (BEAKER) (test code = 355) 29 meq/L 22-29 BLOOD UREA NITROGEN (BEAKER) (test code = 354) 26 mg/dL 7-21 H CREATININE (BEAKER) (test code = 358) 4.67 mg/dL 0.57-1.25 H GLUCOSE RANDOM (BEAKER) (test code = 652) 88 mg/dL 70-105 CALCIUM (BEAKER) (test code = 697) 8.1 mg/dL 8.4-10.2 L EGFR (BEAKER) (test code = 1092) 12 mL/min/1.73 sq m ESTIMATED GFR IS NOT ACCURATE CREATININE CLEARANCE IN PREDICTING GLOMERULAR FILTRATION RATE. ESTIMATED GFR IS NOT APPLICABLE FOR DIALYSIS PATIENTS. Wellness Program Administrator ID - STEPHANIE [facility] W/PLT COUNT & AUTO [id number] 06:04:00* Test Item Value Reference Range Interpretation Comments WHITE BLOOD CELL COUNT (BEAKER) (test code = 775) 10.4 K/ L 3.5- 10.5 RED BLOOD CELL COUNT (BEAKER) (test code = 761) 2.93 M/ L 4.63-6 .08 L HEMOGLOBIN (BEAKER) (test code = 410) 8.7 GM/DL 13.7-17.5 L HEMATOCRIT (BEAKER) (test code = 411) 28.0 % 40.1-51.0 L MEAN CORPUSCULAR VOLUME (BEAKER) (test code = 753) 95.6 fL 79. 0-92.2 H MEAN CORPUSCULAR HEMOGLOBIN (BEAKER) (test code = 751) 29.7 pg 25.7-32.2 MEAN CORPUSCULAR HEMOGLOBIN CONC (BEAKER) (test code = 752) 31.1 GM/DL 32.3-36.5 L RED CELL DISTRIBUTION WIDTH (BEAKER) (test code = 412) 14.6 % 11.6-14.4 H PLATELET COUNT (BEAKER) (test code = 756) 273 K/CU MM 150-450 MEAN PLATELET VOLUME (BEAKER) (test code = 754) 10.0 fL 9.4-12 .4 NUCLEATED RED BLOOD CELLS (BEAKER) (test code = 413) 0 /100 WBC 0 -0 NEUTROPHILS RELATIVE PERCENT (BEAKER) (test code = 429) 62 % LYMPHOCYTES RELATIVE PERCENT (BEAKER) (test code = 430) 24 % MONOCYTES RELATIVE PERCENT (BEAKER) (test code = 431) 10 % EOSINOPHILS RELATIVE PERCENT (BEAKER) (test code = 432) 1 % BASOPHILS RELATIVE PERCENT (BEAKER) (test code = 437) 1 % NEUTROPHILS ABSOLUTE COUNT (BEAKER) (test code = 670) 6.45 K/ L 1.78-5.38 H LYMPHOCYTES ABSOLUTE COUNT (BEAKER) (test code = 414) 2.50 K/ L 1.32-3.57 MONOCYTES ABSOLUTE COUNT (BEAKER) (test code = 415) 1.07 K/ L 0. 30-0.82 H EOSINOPHILS ABSOLUTE COUNT (BEAKER) (test code = 416) 0.14 K/ L 0.04-0.54 BASOPHILS ABSOLUTE COUNT (BEAKER) (test code = 417) 0.12 K/ L 0. 01-0.08 H IMMATURE GRANULOCYTES-RELATIVE PERCENT (BEAKER) (test code = 2801) 1 % 0-1 POCT-GLUCOSE [id number] 23:57:00* Test Item Value Reference Range Interpretation Comments POC-GLUCOSE METER (BEAKER) (test code = 1538) 109 mg/dL 70-110 : TESTED AT [facility] [address] [facility], [address]: Wellness Program Administrator/Photographic Lithographer ID = [id number] for LAURA HERRERA POCT-GLUCOSE [id number] 18:13:00* Test Item Value Reference Range Interpretation Comments POC-GLUCOSE METER (BEAKER) (test code = 1538) 109 mg/dL 70-110 : TESTED AT [facility] [address] [facility], [address]: Wellness Program Administrator/Photographic Lithographer ID = [id number] for OSCAR DOYLE Troponin [id number] 16:44:00* Test Item Value Reference Range Interpretation Comments Troponin I (test code = 26230-5) 0.01 ng/mL 0-0.03 ADRIENNE (test code = ADRIENNE) Troponin I (TnI) levels must be interpreted in the context of the presenting symptoms and the clinical findings. Elevated TnI levels indicate myocardial damage, but are not specific for ischemic heart disease. Elevated TnI levels are seen in patients with other cardiac conditions (including myocarditis and congestive heart failure), and slight TnI elevations occur in patients with other conditions, including sepsis, renal failure, acidosis, acute neurological disease, and persistent tachyarrhythmia.Wellness Program Administrator ID - BS Lab Interpretation (test code = 83401-8) Normal [facility] [id number] 16:44:00* Test Item Value Reference Range Interpretation Comments TROPONIN I (BEAKER) (test code = 397) 0.01 ng/mL 0.00-0.03 Troponin I (TnI) levels must be interpreted in the context of the presenting sym ptoms and the clinical findings. Elevated TnI levels indicate myocardial damage, but are not specific for ischemic heart disease. Elevated TnI levels are seen i n patients with other cardiac conditions (including myocarditis and congestive h eart failure), and slight TnI elevations occur in patients with other conditions , including sepsis, renal failure, acidosis, acute neurological disease, and per sistent tachyarrhythmia.Wellness Program Administrator ID - [id number] and [id number] 16:08:00* Test Item Value Reference Range Interpretation Comments Hemoglobin (test code = 786-4) 9.5 13.7- 17.5 GM/DL L Hematocrit (test code = 4544-3) 29.5 % 40.1-51 L ADRIENNE (test code = ADRIENNE) Wellness Program Administrator ID - [id number] Lab Interpretation (test code = 80090-8) Abnormal [facility] CenterHEMOGLOBIN AND [id number] 16:08:00* Test Item Value Reference Range Interpretation Comments HEMOGLOBIN (BEAKER) (test code = 410) 9.5 GM/DL 13.7-17.5 L HEMATOCRIT (BEAKER) (test code = 411) 29.5 % 40.1-51.0 L Wellness Program Administrator ID - [id number]-GLUCOSE [id number] 14:22:00* Test Item Value Reference Range Interpretation Comments POC-GLUCOSE METER (BEAKER) (test code = 1538) 95 mg/dL 70-110 : TESTED AT [address], [address]: Wellness Program Administrator/Photographic Lithographer ID = [id number] for OSCAR DOYLE POCT-GLUCOSE [id number] 13:21:00* Test Item Value Reference Range Interpretation Comments POC-GLUCOSE METER (BEAKER) (test code = 1538) 68 mg/dL 70-110 L : Verify w/ Lab Draw: Will Repeat Test: TESTED AT [address], [address]: Wellness Program Administrator/Photographic Lithographer ID = [id number] for OSCAR DOYLE Potassium-Stat [id number] 11:15:00* Test Item Value Reference Range Interpretation Comments Potassium (test code = 2823-3) 3.1 meq/L 3.6-5.5 L Lab Interpretation (test code = 35968-2) Abnormal [facility] CenterPOTASSIUM-STAT [id number] 11:15:00* Test Item Value Reference Range Interpretation Comments POTASSIUM (BEAKER) (test code = 379) 3.1 meq/L 3.6-5.5 L BASIC METABOLIC [id number] 05:13:00* Test Item Value Reference Range Interpretation Comments SODIUM (BEAKER) (test code = 381) 132 meq/L 136-145 L POTASSIUM (BEAKER) (test code = 379) 4.9 meq/L 3.5-5.1 CHLORIDE (BEAKER) (test code = 382) 97 meq/L 98-107 L CO2 (BEAKER) (test code = 355) 27 meq/L 22-29 BLOOD UREA NITROGEN (BEAKER) (test code = 354) 45 mg/dL 7-21 H CREATININE (BEAKER) (test code = 358) 6.67 mg/dL 0.57-1.25 H GLUCOSE RANDOM (BEAKER) (test code = 652) 84 mg/dL 70-105 CALCIUM (BEAKER) (test code = 697) 8.0 mg/dL 8.4-10.2 L EGFR (BEAKER) (test code = 1092) 8 mL/min/1.73 sq m ESTIMATED GFR IS NOT ACCURATE CREATININE CLEARANCE IN PREDICTING GLOMERULAR FILTRATION RATE. ESTIMATED GFR IS NOT APPLICABLE FOR DIALYSIS PATIENTS. Wellness Program Administrator ID - STEPHANIE [id number] 04:56:00* Test Item Value Reference Range Interpretation Comments PHOSPHORUS (BEAKER) (test code = 604) 3.2 mg/dL 2.3-4.7 Wellness Program Administrator ID - STEPHANIE [facility] W/PLT COUNT & AUTO [id number] 04:17:00* Test Item Value Reference Range Interpretation Comments WHITE BLOOD CELL COUNT (BEAKER) (test code = 775) 10.6 K/ L 3.5- 10.5 H RED BLOOD CELL COUNT (BEAKER) (test code = 761) 2.84 M/ L 4.63-6 .08 L HEMOGLOBIN (BEAKER) (test code = 410) 8.5 GM/DL 13.7-17.5 L HEMATOCRIT (BEAKER) (test code = 411) 26.9 % 40.1-51.0 L MEAN CORPUSCULAR VOLUME (BEAKER) (test code = 753) 94.7 fL 79. 0-92.2 H MEAN CORPUSCULAR HEMOGLOBIN (BEAKER) (test code = 751) 29.9 pg 25.7-32.2 MEAN CORPUSCULAR HEMOGLOBIN CONC (BEAKER) (test code = 752) 31.6 GM/DL 32.3-36.5 L RED CELL DISTRIBUTION WIDTH (BEAKER) (test code = 412) 14.1 % 11.6-14.4 PLATELET COUNT (BEAKER) (test code = 756) 279 K/CU MM 150-450 MEAN PLATELET VOLUME (BEAKER) (test code = 754) 10.0 fL 9.4-12 .4 NUCLEATED RED BLOOD CELLS (BEAKER) (test code = 413) 0 /100 WBC 0 -0 NEUTROPHILS RELATIVE PERCENT (BEAKER) (test code = 429) 62 % LYMPHOCYTES RELATIVE PERCENT (BEAKER) (test code = 430) 26 % MONOCYTES RELATIVE PERCENT (BEAKER) (test code = 431) 9 % EOSINOPHILS RELATIVE PERCENT (BEAKER) (test code = 432) 2 % BASOPHILS RELATIVE PERCENT (BEAKER) (test code = 437) 1 % NEUTROPHILS ABSOLUTE COUNT (BEAKER) (test code = 670) 6.51 K/ L 1.78-5.38 H LYMPHOCYTES ABSOLUTE COUNT (BEAKER) (test code = 414) 2.69 K/ L 1.32-3.57 MONOCYTES ABSOLUTE COUNT (BEAKER) (test code = 415) 0.99 K/ L 0. 30-0.82 H EOSINOPHILS ABSOLUTE COUNT (BEAKER) (test code = 416) 0.17 K/ L 0.04-0.54 BASOPHILS ABSOLUTE COUNT (BEAKER) (test code = 417) 0.07 K/ L 0. 01-0.08 IMMATURE GRANULOCYTES-RELATIVE PERCENT (BEAKER) (test code = 2801) 1 % 0-1 Hepatitis B surface [id number] 00:16:00* Test Item Value Reference Range Interpretation Comments HBsAg Screen (test code = 5195-3) Nonreactive Nonreactive ADRIENNE (test code = ADRIENNE) Specimen is considered negative for HBsAg. Lab Interpretation (test code = 48690-7) [facility] SURFACE [id number] 00:16:00* Test Item Value Reference Range Interpretation Comments HEPATITIS B SURFACE ANTIGEN (2) (BEAKER) (test code = 2585) Nonreactive Nonreactive Specimen is considered negative for HBsAg.POCT-GLUCOSE [id number] 21:38:00 * Test Item Value Reference Range Interpretation Comments POC-GLUCOSE METER (BEAKER) (test code = 1538) 72 mg/dL 70-110 : TESTED AT [facility] [address] [facility], [id number]: Wellness Program Administrator/Photographic Lithographer ID = [id number] for ULLATTDARIUZS ANTUNEZAK SARS-CoV2/RT-PCR (Asymptomatic ONLY)2020-01-08 20:40:00* Test Item Value Reference Range Interpretation Comments SARS-COV2/RT-PCR (test code = 89089-3) Not Detected Not Detected, N egative SARS-COV-2 PERFORMING LAB (test code = 53835-7) [facility] ADRIENNE (test code = ADRIENNE) Negative results do not prec lude SARS-CoV-2 infection and should not be used as the sole basis for patient management decisions. Negative results must be combined with clinical observations, patient history, and epidemiological information. A false negative result may occur if a specimen is improperly collected, transported or handled. The limit of detection for this assay is 250 copies/mL. This SARS CoV-2 test is a rapid, real-time RT-PCR test intended for the qualitative detection of nucleic acid from SARS-CoV-2 in a nasopharyngeal swab specimen collected from individuals suspected of COVID-19 by their healthcare provider. This test has not been Food and Drug Administration (FDA) cleared or approved and has been authorized by FDA under an Emergency Use Authorization (EUA). This EUA will be effective until the declaration that circumstances exist justifying the authorization of the emergency use of in vitro diagnostic tests for detection and/or diagnosis of COVID-19 is terminated under Section 564(b)(2) of the Act or the EUA is revoked under Section 564(g) of the Act. Fact Sheet for Healthcare Providers:https://www.[employer]/Documents/Xpert%20Xpress%20SARS%20CoV-2/Fact%2 0Sheets/302-4552%56AGUS-XGG-7%20HEALTHCARE%20PROVIDERS%20FACT%20SHEET.pdf Fact Sheet for Healthcare Patients:https://www.[employer]/Documents/Xpert%20Xpress%20SARS%20CoV-2/Fact%20 Sheets/3023801%82PBQN-SGP-1%20PATIENT%20FACT%20SHEET.pdf Performing Laboratory:[facility] [place] [address] [facility])2020-01-08 20:40:00* Test Item Value Reference Range Interpretation Comments SARS-COV2/RT-PCR (test code = 5452316) Not Detected Not Detected, N egative SARS-COV-2 PERFORMING LAB (test code = 1622969) [facility] Negative results do not preclude SARS-CoV-2 infection and should not be used as the sole basis for patient management decisions. Negative results must be combin ed with clinical observations, patient history, and epidemiological information. A false negative result may occur if a specimen is improperly collected, transp orted or handled.The limit of detection for this assay is 250 copies/mL.This [facility] S CoV-2 test is a rapid, real-time RT-PCR test intended for the qualitative dete ction of nucleic acid from SARS-CoV-2 in a nasopharyngeal swab specimen collecte d from individuals suspected of COVID-19 by their healthcare provider.This test has not been Food and Drug Administration (FDA) cleared or approved and has been authorized by FDA under an Emergency Use Authorization (EUA). This EUA will be effective until the declaration that circumstances exist justifying the authoriz ation of the emergency use of in vitro diagnostic tests for detection and/or ross gnosis of COVID-19 is terminated under Section 564(b)(2) of the Act or the EUA i s revoked under Section 564(g) of the Act.Fact Sheet for Healthcare Providers:ht tps://www.[employer]/Documents/Xpert%20Xpress%20SARS%20CoV-2/Fact%20Sheets/302 3802%03JEVG-JUQ-3%20HEALTHCARE%20PROVIDERS%20FACT%20SHEET.pdfFact Sheet for Heal thcare Patients:https://www.[employer]/Documents/Xpert%20Xpress%20SARS%20CoV-2/ Fact%20Sheets/3023801%63RREW-HWX-9%20PATIENT%20FACT%20SHEET.pdfPerforming Labor atory:[facility], [place] [address]OXYSA METABOLIC [id number] 20:37:00* Test Item Value Reference Range Interpretation Comments SODIUM (BEAKER) (test code = 381) 132 meq/L 136-145 L POTASSIUM (BEAKER) (test code = 379) 4.7 meq/L 3.5-5.1 CHLORIDE (BEAKER) (test code = 382) 94 meq/L 98-107 L CO2 (BEAKER) (test code = 355) 27 meq/L 22-29 BLOOD UREA NITROGEN (BEAKER) (test code = 354) 44 mg/dL 7-21 H CREATININE (BEAKER) (test code = 358) 6.37 mg/dL 0.57-1.25 H GLUCOSE RANDOM (BEAKER) (test code = 652) 82 mg/dL 70-105 CALCIUM (BEAKER) (test code = 697) 8.4 mg/dL 8.4-10.2 EGFR (BEAKER) (test code = 1092) 9 mL/min/1.73 sq m ESTIMATED GFR IS NOT ACCURATE CREATININE CLEARANCE IN PREDICTING GLOMERULAR FILTRATION RATE. ESTIMATED GFR IS NOT APPLICABLE FOR DIALYSIS PATIENTS. Wellness Program Administrator ID - [id number] 20:34:00* Test Item Value Reference Range Interpretation Comments Magnesium (test code = 40969-7) 1.9 mg/dL 1.6-2.6 ADRIENNE (test code = ADRIENNE) Wellness Program Administrator ID - BS Lab Interpretation (test code = 88730-2) [facility] 20:34:00* Test Item Value Reference Range Interpretation Comments MAGNESIUM (BEAKER) (test code = 627) 1.9 mg/dL 1.6-2.6 Wellness Program Administrator ID - BSCBC W/PLT COUNT & AUTO [id number] 20:19:00* Test Item Value Reference Range Interpretation Comments WHITE BLOOD CELL COUNT (BEAKER) (test code = 775) 13.8 K/ L 3.5- 10.5 H RED BLOOD CELL COUNT (BEAKER) (test code = 761) 3.12 M/ L 4.63-6 .08 L HEMOGLOBIN (BEAKER) (test code = 410) 9.2 GM/DL 13.7-17.5 L HEMATOCRIT (BEAKER) (test code = 411) 29.6 % 40.1-51.0 L MEAN CORPUSCULAR VOLUME (BEAKER) (test code = 753) 94.9 fL 79. 0-92.2 H MEAN CORPUSCULAR HEMOGLOBIN (BEAKER) (test code = 751) 29.5 pg 25.7-32.2 MEAN CORPUSCULAR HEMOGLOBIN CONC (BEAKER) (test code = 752) 31.1 GM/DL 32.3-36.5 L RED CELL DISTRIBUTION WIDTH (BEAKER) (test code = 412) 14.1 % 11.6-14.4 PLATELET COUNT (BEAKER) (test code = 756) 218 K/CU MM 150-450 MEAN PLATELET VOLUME (BEAKER) (test code = 754) 10.5 fL 9.4-12 .4 NUCLEATED RED BLOOD CELLS (BEAKER) (test code = 413) 0 /100 WBC 0 -0 NEUTROPHILS RELATIVE PERCENT (BEAKER) (test code = 429) 66 % LYMPHOCYTES RELATIVE PERCENT (BEAKER) (test code = 430) 24 % MONOCYTES RELATIVE PERCENT (BEAKER) (test code = 431) 6 % EOSINOPHILS RELATIVE PERCENT (BEAKER) (test code = 432) 1 % BASOPHILS RELATIVE PERCENT (BEAKER) (test code = 437) 1 % NEUTROPHILS ABSOLUTE COUNT (BEAKER) (test code = 670) 9.16 K/ L 1.78-5.38 H LYMPHOCYTES ABSOLUTE COUNT (BEAKER) (test code = 414) 3.31 K/ L 1.32-3.57 MONOCYTES ABSOLUTE COUNT (BEAKER) (test code = 415) 0.89 K/ L 0. 30-0.82 H EOSINOPHILS ABSOLUTE COUNT (BEAKER) (test code = 416) 0.16 K/ L 0.04-0.54 BASOPHILS ABSOLUTE COUNT (BEAKER) (test code = 417) 0.08 K/ L 0. 01-0.08 IMMATURE GRANULOCYTES-RELATIVE PERCENT (BEAKER) (test code = 2801) 2 % 0-1 H CHEST SINGLE (PORTABLE)2020-01-08 11:34:00 [place] [address] Patient Name: CHARLOTTE LANDA MR #: [id number] : 1940 Age/Sex: 79/M Req #: [id number] Adm Physician: Ordered by: HORTENCIA GARCIA MD, MD Report #: [id number] Location: ER Room/Bed: Procedure: [id number] DX/CHEST SIN GLE (PORTABLE) Exam Date: 01/08/20 Exam Time: 1115 REPORT STATUS: Signed EXAM: CHES T SINGLE (PORTABLE) DATE: 01/08/2020 11:15 AM INDICATION: Hemoptysis COMPARISON: 12/14/2019 FINDINGS: The trachea is midline. There is mi nimal bibasilar opacities suggestive of atelectasis. The lungs are otherwise s ymmetrically expanded without evidence for focal consolidation, pneumothorax, or significant pleural effusion. The cardiomediastinal silhouette is stable in appearance. No acute osseous abnormalities identified. IMPRESSION: No acute cardiopulmonary process or significant interval change identified fr om 12/14/2019. Signed by: Dr. Lefty Denis MD on 01/08/2020 11:35 AM Dictated By: LEFTY DENIS MD 1135 COPY TO: JUAN GARCIA Blood leukocytes automated count (number/volume)2020-01-08 11:03:00 * Test Item Value Reference Range Interpretation Comments White Blood Count (test code = 6690-2) 15.41 4.8-10.8 [facility] automated count (number/volume)2020-01-08 11:03:00* Test Item Value Reference Range Interpretation Comments Red Blood Count (test code = 789-8) 3.61 4.3-5.7 [facility] BrookBlood hemoglobin measurement (moles/volume)2020-01-08 11:03:00* Test Item Value Reference Range Interpretation Comments Hemoglobin (test code = 10394-5) 10.7 14.0-18.0 [facility] BrookAutomated blood hematocrit (volume fraction)2020-01-08 11:03:00* Test Item Value Reference Range Interpretation Comments Hematocrit (test code = 4544-3) 33.5 38.2-49.6 [facility] BrookAutomated erythrocyte mean corpuscular tfklnl0462-05-78 11:03:00* Test Item Value Reference Range Interpretation Comments Mean Corpuscular Volume (test code = 787-2) 92.8 81-99 [facility] BrookAutomated erythrocyte mean corpuscular hemoglobin (mass per erythrocyte)2020-01-08 11:03:00* Test Item Value Reference Range Interpretation Comments Mean Corpuscular Hemoglobin (test code = 785-6) 29.6 28-32 [facility] BrookAutomated erythrocyte mean corpuscular hemoglobin concentration measurement (mass/volume)2020-01-08 11:03:00* Test Item Value Reference Range Interpretation Comments Mean Corpuscular Hemoglobin Concent (test code = 786-4) 31.9 31-35 [facility] BrookRDW UpvKy-Mbm6801-19-08 11:03:00* Test Item Value Reference Range Interpretation Comments Red Cell Distribution Width (test code = 61556-2) 14.0 11.7 -14.4 [facility] BrookAutomated blood platelet count (count/volume)2020-01-08 11:03:00* Test Item Value Reference Range Interpretation Comments Platelet Count (test code = 777-3) 213 140-360 [facility] BrookAutformerly [facility] blood segmented neutrophil count as percentage of total fzblyfmnog4475-80-23 11:03:00* Test Item Value Reference Range Interpretation Comments Neutrophils (%) (Auto) (test code = 84513-7) 73.9 38.7-80.0 [facility] BrookAutomated blood lymphocyte count as percentage ot total wrehkrbtzs6871-10-04 11:03:00* Test Item Value Reference Range Interpretation Comments Lymphocytes (%) (Auto) (test code = 736-9) 16.9 18.0-39.1 [facility] BrookAutomated blood monocyte count as percentage of total jnomxbruse7374-93-06 11:03:00* Test Item Value Reference Range Interpretation Comments Monocytes (%) (Auto) (test code = 5905-5) 6.3 4.4-11.3 [facility] BrookAutomated blood eosinophil count as percentage of total befssminoo4268-73-16 11:03:00* Test Item Value Reference Range Interpretation Comments Eosinophils (%) (Auto) (test code = 713-8) 0.5 0.0-6.0 [facility] BrookAutomated blood basophil count as percentage of total bcgpykwqcb6036-14-99 11:03:00* Test Item Value Reference Range Interpretation Comments Basophils (%) (Auto) (test code = 706-2) 0.8 0.0-1.0 [facility] BrookFluoroscopic procedure less than one hour bspvfyud5746-61-32 11:03:00* Test Item Value Reference Range Interpretation Comments IM GRANULOCYTES % (test code = IM GRANULOCYTES %) 1.6 0.0- 1.0 [facility] BrookAutomated blood neutrophil count 2020-01-08 11:03:00* Test Item Value Reference Range Interpretation Comments Neutrophils # (Auto) (test code = 751-8) 11.4 2.1-6.9 [facility] BrookBlood lymphocytes count (number/volume) 2020-01-08 11:03:00* Test Item Value Reference Range Interpretation Comments Lymphocytes # (Auto) (test code = 49042-2) 2.6 1.0-3.2 [facility] BrookBlowatonna clinic monocytes automated count (number/volume)2020-01-08 11:03:00* Test Item Value Reference Range Interpretation Comments Monocytes # (Auto) (test code = 742-7) 1.0 0.2-0.8 [facility] BrookAutomated blood eosinophil count 2020-01-08 11:03:00* Test Item Value Reference Range Interpretation Comments Eosinophils # (Auto) (test code = 711-2) 0.1 0.0-0.4 [facility] BrookAutomated blood basophil count (count/volume)2020-01-08 11:03:00* Test Item Value Reference Range Interpretation Comments Basophils # (Auto) (test code = 704-7) 0.1 0.0-0.1 [facility] BrookFluoroscopic procedure less than one hour zsffklex6556-42-66 11:03:00* Test Item Value Reference Range Interpretation Comments Absolute Immature Granulocyte (auto (mojgan t code = Absolute Immature Granulocyte (auto) 0.25 0-0.1 [facility] BrookProthrombin time (PT) in platelet poor plasma by coagulation jnzdr6284-86-99 11:03:00* Test Item Value Reference Range Interpretation Comments Prothrombin Time (test code = 5902-2) 15.7 11.9-14.5 [facility] BrookINR in Platelet poor plasma by Coagulation sdgkq8509-02-10 11:03:00* Test Item Value Reference Range Interpretation Comments Prothromb Time International Ratio (test code = 6301-6) 1.17 Oral Anticoagulant Therapy INR Values:1. Low Intensity Therapy 1.5 - 2.02 . Moderate Intensity Therapy 2.0 - 3.03. High Intensity Therapy(1) 2.5 - 3. 54. High Intensity Therapy(2) 3.0 - 4.05. Panic Value INR > 5.0 [facility] BrookActivated partial thromboplastin time (aPTT) in platelet poor plasma by coagulation jfbqu6022-79-47 11:03:00* Test Item Value Reference Range Interpretation Comments Activated Partial Thromboplast Time (test code = 94937-5) 39.1 23.8-35.5 [facility] sodium [facility] (moles/volume)2020-01-08 11:03:00* Test Item Value Reference Range Interpretation Comments Sodium Level (test code = 2951-2) 133 136-145 [facility] or plasma potassium measurement (moles/volume)2020-01-08 11:03:00* Test Item Value Reference Range Interpretation Comments Potassium Level (test code = 2823-3) 4.7 3.5-5.1 [facility] or plasma chloride measurement (moles/volume)2020-01-08 11:03:00* Test Item Value Reference Range Interpretation Comments Chloride Level (test code = 2075-0) 94 98-107 [facility] or plasma carbon dioxide, total measurement (moles/volume)2020-01-08 11:03:00* Test Item Value Reference Range Interpretation Comments Carbon Dioxide Level (test code = 2028-9) 27 22-29 [facility] or plasma anion cqa5141-72-92 11:03:00* Test Item Value Reference Range Interpretation Comments Anion Gap (test code = 04782-6) 16.7 8-16 [facility] or plasma urea nitrogen measurement (mass/volume)2020-01-08 11:03:00* Test Item Value Reference Range Interpretation Comments Blood Urea Nitrogen (test code = 3094-0) 37 7-26 [facility] or plasma creatinine measurement (mass/volume)2020-01-08 11:03:00* Test Item Value Reference Range Interpretation Comments Creatinine (test code = 2160-0) 6.38 0.72-1.25 [facility] or plasma urea nitrogen/creatinine mass mlfej2785-12-97 11:03:00* Test Item Value Reference Range Interpretation Comments BUN/Creatinine Ratio (test code = 3097-3) 6 6-25 [facility] BrookEstimated glomerular filtration rate (GFR) qcrgopsralfca2637-69-72 11:03:00* Test Item Value Reference Range Interpretation Comments Estimat Glomerular Filtration Rate (test code = 898889931) 9 >60 Ranges were taken from the National Kidney Disease Education Program and the [facility] literature.Reference ranges:60 or greater: Sputkq42-09 ( for 3 consecutive months): Chronic kidney disease 15 or less: Kidney failureAdventHealth Rollins BrookGlucose juavoiopxwz3908-70-73 11:03:00* Test Item Value Reference Range Interpretation Comments Glucose Level (test code = VMW2945) 86 74-118 [facility] or plasma calcium measurement (mass/volume)2020-01-08 11:03:00* Test Item Value Reference Range Interpretation Comments Calcium Level (test code = 28388-0) 9.0 8.4-10.2 [facility] or plasma total bilirubin measurement (mass/volume)2020-01-08 11:03:00* Test Item Value Reference Range Interpretation Comments Total Bilirubin (test code = 1975-2) 0.3 0.2-1.2 [facility] BrookFluoroscopic procedure less than one hour zxcodcrm7405-02-74 11:03:00* Test Item Value Reference Range Interpretation Comments Aspartate Amino Transf (AST/SGOT) (test code = Aspartate Amino Transf (AST/SGOT)) 9 5-34 [facility]her[facility] or plasma alanine aminotransferase measurement (enzymatic activity/volume)2020-01-08 11:03:00* Test Item Value Reference Range Interpretation Comments Alanine Aminotransferase (ALT/SGPT) (test code = 1742-6) < 6 0-55 [facility] or plasma protein measurement (mass/volume)2020-01-08 11:03:00* Test Item Value Reference Range Interpretation Comments Total Protein (test code = 2885-2) 6.8 6.5-8.1 [facility] or plasma albumin measurement (mass/volume)2020-01-08 11:03:00* Test Item Value Reference Range Interpretation Comments Albumin (test code = 1751-7) 1.6 3.5-5.0 [facility] BrookPlasma globulin measurement (mass/volume) 2020-01-08 11:03:00* Test Item Value Reference Range Interpretation Comments Globulin (test code = 59328-5) 5.2 2.3-3.5 [facility] or plasma albumin/globulin mass hmeia6745-68-02 11:03:00* Test Item Value Reference Range Interpretation Comments Albumin/Globulin Ratio (test code = 1759-0) 0.3 0.8-2.0 [facility] or plasma alkaline phosphatase measurement (enzymatic activity/volume)2020-01-08 11:03:00* Test Item Value Reference Range Interpretation Comments Alkaline Phosphatase (test code = 6768-6) 64 40-150 [facility] or plasma creatine kinase measurement (enzymatic activity/volume)2020-01-08 11:03:00* Test Item Value Reference Range Interpretation Comments Creatine Kinase (test code = 2157-6) 17 30-200 [facility] or plasma creatine kinase MB measurement (mass/volume)2020-01-08 11:03:00* Test Item Value Reference Range Interpretation Comments Creatine Kinase MB (test code = 26972-0) 1.00 0-5.0 [facility] BrookTroponin I measurement by highly sensitive enzyme pgjqjdnqbdl4302-91-11 11:03:00* Test Item Value Reference Range Interpretation Comments Troponin I (test code = 51754-5) 0.026 0-0.300 [facility] or plasma lipase measurement (enzymatic activity/volume)2020-01-08 11:03:00* Test Item Value Reference Range Interpretation Comments Lipase (test code = 3040-3) 19 8-78 [facility] or plasma creatine kinase measurement (enzymatic activity/volume)2020-01-08 11:03:00* Test Item Value Reference Range Interpretation Comments Creatine Kinase (test code = 2157-6) 17 30-200 [facility] or plasma creatine kinase MB measurement (mass/volume)2020-01-08 11:03:00* Test Item Value Reference Range Interpretation Comments Creatine Kinase MB (test code = 93516-5) 1.00 0-5.0 [facility] BrookTroponin I measurement by highly sensitive enzyme pvucocgunma0526-59-34 11:03:00* Test Item Value Reference Range Interpretation Comments Troponin I (test code = 69081-4) 0.026 0-0.300 [facility] or plasma lipase measurement (enzymatic activity/volume)2020-01-08 11:03:00* Test Item Value Reference Range Interpretation Comments Lipase (test code = 3040-3) 878 [facility] BrookCapillary blood glucose measurement by glucometer (mass/volume)2020-01-04 14:39:00* Test Item Value Reference Range Interpretation Comments Bedside Glucose (test code = 36678-9) 150 70-120 Meter ID: [id number] Hermann Greater Heights HospitalCapillary blood glucose measurement by glucometer (mass/volume)2020-01-04 14:39:00* Test Item Value Reference Range Interpretation Comments Bedside Glucose (test code = 35315-1) 150 70-120 Meter ID: [id number] Hermann Greater Heights HospitalBlood leukocytes automated count (number/volume)2020-01-04 05:50:00* Test Item Value Reference Range Interpretation Comments White Blood Count (test code = 6690-2) 9.97 4.8-10.8 [facility] BrookBlood erythrocytes automated count (number/volume)2020-01-04 05:50:00* Test Item Value Reference Range Interpretation Comments Red Blood Count (test code = 789-8) 3.43 4.3-5.7 [facility] BrookBlood hemoglobin measurement (moles/volume)2020-01-04 05:50:00* Test Item Value Reference Range Interpretation Comments Hemoglobin (test code = 92990-8) 10.3 14.0-18.0 [facility] BrookAutomated blood hematocrit (volume fraction)2020-01-04 05:50:00* Test Item Value Reference Range Interpretation Comments Hematocrit (test code = 4544-3) 31.4 38.2-49.6 [facility] BrookAutomated erythrocyte mean corpuscular mqzico8742-04-17 05:50:00* Test Item Value Reference Range Interpretation Comments Mean Corpuscular Volume (test code = 787-2) 91.5 81-99 [facility] BrookAutomated erythrocyte mean corpuscular hemoglobin (mass per erythrocyte)2020-01-04 05:50:00* Test Item Value Reference Range Interpretation Comments Mean Corpuscular Hemoglobin (test code = 785-6) 30.0 28-32 [facility] BrookAutomated erythrocyte mean corpuscular hemoglobin concentration measurement (mass/volume)2020-01-04 05:50:00* Test Item Value Reference Range Interpretation Comments Mean Corpuscular Hemoglobin Concent (test code = 786-4) 32.8 31-35 [facility] BrookRDW ZtsPg-Rwh2227-51-04 05:50:00* Test Item Value Reference Range Interpretation Comments Red Cell Distribution Width (test code = 38149-9) 13.8 11.7 -14.4 [facility] BrookAutomated blood platelet count (count/volume)2020-01-04 05:50:00* Test Item Value Reference Range Interpretation Comments Platelet Count (test code = 777-3) 217 140-360 [facility] BrookAutomated blood segmented neutrophil count as percentage of total sqgpbijswp3655-68-65 05:50:00* Test Item Value Reference Range Interpretation Comments Neutrophils (%) (Auto) (test code = 41273-1) 69.3 38.7-80.0 [facility] BrookAutomated blood lymphocyte count as percentage ot total kqdvjkxslo9569-62-78 05:50:00* Test Item Value Reference Range Interpretation Comments Lymphocytes (%) (Auto) (test code = 736-9) 19.1 18.0-39.1 [facility] BrookAutomated blood monocyte count as percentage of total zfohsdzivl5408-76-91 05:50:00* Test Item Value Reference Range Interpretation Comments Monocytes (%) (Auto) (test code = 5905-5) 7.9 4.4-11.3 [facility] BrookAutomated blood eosinophil count as percentage of total quhmtifqiu3949-27-27 05:50:00* Test Item Value Reference Range Interpretation Comments Eosinophils (%) (Auto) (test code = 713-8) 1.5 0.0-6.0 [facility] BrookAutomated blood basophil count as percentage of total tnzkdfxnds4284-41-62 05:50:00* Test Item Value Reference Range Interpretation Comments Basophils (%) (Auto) (test code = 706-2) 0.6 0.0-1.0 [facility] BrookFluoroscopic procedure less than one hour wzbmixtj7348-57-56 05:50:00* Test Item Value Reference Range Interpretation Comments IM GRANULOCYTES % (test code = IM GRANULOCYTES %) 1.6 0.0- 1.0 [facility] BrookAutomated blood neutrophil count 2020-01-04 05:50:00* Test Item Value Reference Range Interpretation Comments Neutrophils # (Auto) (test code = 751-8) 6.9 2.1-6.9 [facility] BrookBlood lymphocytes count (number/volume) 2020-01-04 05:50:00* Test Item Value Reference Range Interpretation Comments Lymphocytes # (Auto) (test code = 77540-4) 1.9 1.0-3.2 [facility] BrookBlood monocytes automated count (number/volume)2020-01-04 05:50:00* Test Item Value Reference Range Interpretation Comments Monocytes # (Auto) (test code = 742-7) 0.8 0.2-0.8 [facility] BrookAutomated blood eosinophil count 2020-01-04 05:50:00* Test Item Value Reference Range Interpretation Comments Eosinophils # (Auto) (test code = 711-2) 0.2 0.0-0.4 [facility] BrookAutomated blood basophil count (count/volume)2020-01-04 05:50:00* Test Item Value Reference Range Interpretation Comments Basophils # (Auto) (test code = 704-7) 0.1 0.0-0.1 [facility] BrookFluoroscopic procedure less than one hour xfmyfgcf9698-76-97 05:50:00* Test Item Value Reference Range Interpretation Comments Absolute Immature Granulocyte (auto (mojgan t code = Absolute Immature Granulocyte (auto) 0.16 0-0.1 [facility] sodium measurement (moles/volume)2020-01-04 05:50:00* Test Item Value Reference Range Interpretation Comments Sodium Level (test code = 2951-2) 137 136-145 [facility] or plasma potassium measurement (moles/volume)2020-01-04 05:50:00* Test Item Value Reference Range Interpretation Comments Potassium Level (test code = 2823-3) 4.2 3.5-5.1 [facility] or plasma chloride measurement (moles/volume)2020-01-04 05:50:00* Test Item Value Reference Range Interpretation Comments Chloride Level (test code = 2075-0) 102 98-107 [facility] or plasma carbon dioxide, total measurement (moles/volume)2020-01-04 05:50:00* Test Item Value Reference Range Interpretation Comments Carbon Dioxide Level (test code = 2028-9) 26 22-29 [facility] or plasma anion pze1956-52-51 05:50:00* Test Item Value Reference Range Interpretation Comments Anion Gap (test code = 29045-3) 13.2 8-16 [facility] or plasma urea nitrogen measurement (mass/volume)2020-01-04 05:50:00* Test Item Value Reference Range Interpretation Comments Blood Urea Nitrogen (test code = 3094-0) 21 7-26 [facility] creatinine measurement (mass/volume)2020-01-04 05:50:00* Test Item Value Reference Range Interpretation Comments Creatinine (test code = 2160-0) 3.93 0.72-1.25 [facility] plasma urea nitrogen/creatinine mass [id number] 05:50:00* Test Item Value Reference Range Interpretation Comments BUN/Creatinine Ratio (test code = 3097-3) 5 6-25 [facility] Brook[facility]ated glomerular filtration rate (GFR) nueszuntclwra8595-24-81 05:50:00* Test Item Value Reference Range Interpretation Comments Estimat Glomerular Filtration Rate (test code = 186902702) 15 >60 Ranges were taken from the National Kidney Disease Education Program and the Aleisha counts [facility] literature.Reference ranges:60 or greater: Nnuxyv98-84 ( for 3 consecutive months): Chronic kidney disease 15 or less: Kidney failureAdventHealth Rollins BrookGlucose lgmomeeozpk4619-76-40 05:50:00* Test Item Value Reference Range Interpretation Comments Glucose Level (test code = EVD6742) 91 74-118 [facility] plasma calcium measurement (mass/volume)2020-01-04 05:50:00* Test Item Value Reference Range Interpretation Comments Calcium Level (test code = 96531-1) 7.4 8.4-10.2 [facility] magnesium measurement (mass/volume)2020-01-04 05:50:00* Test Item Value Reference Range Interpretation Comments Magnesium Level (test code = 00270-5) 1.8 1.3-2.1 [facility] total bilirubin measurement (mass/volume)2020-01-04 05:50:00* Test Item Value Reference Range Interpretation Comments Total Bilirubin (test code = 1975-2) 0.2 0.2-1.2 [facility] BrookFluoroscopic procedure less than one hour fbayqhrw9688-89-02 05:50:00* Test Item Value Reference Range Interpretation Comments Aspartate Amino Transf (AST/SGOT) (test code = Aspartate Amino Transf (AST/SGOT)) 6 5-34 [facility] plasma alanine aminotransferase measurement (enzymatic activity/volume)2020-01-04 05:50:00* Test Item Value Reference Range Interpretation Comments Alanine Aminotransferase (ALT/SGPT) (test code = 1742-6) < 6 0-55 [facility] protein measurement (mass/volume)2020-01-04 05:50:00* Test Item Value Reference Range Interpretation Comments Total Protein (test code = 2885-2) 5.4 6.5-8.1 [facility] albumin measurement (mass/volume)2020-01-04 05:50:00* Test Item Value Reference Range Interpretation Comments Albumin (test code = 1751-7) 1.3 3.5-5.0 [facility] BrookPlasma globulin measurement (mass/volume) 2020-01-04 05:50:00* Test Item Value Reference Range Interpretation Comments Globulin (test code = 76732-7) 4.1 2.3-3.5 [facility] albumin/globulin mass htxxi6914-82-61 05:50:00* Test Item Value Reference Range Interpretation Comments Albumin/Globulin Ratio (test code = 1759-0) 0.3 0.8-2.0 [facility] plasma alkaline phosphatase measurement (enzymatic activity/volume)2020-01-04 05:50:00* Test Item Value Reference Range Interpretation Comments Alkaline Phosphatase (test code = 6768-6) 52 40-150 [facility] magnesium measurement (mass/volume)2020-01-04 05:50:00* Test Item Value Reference Range Interpretation Comments Magnesium Level (test code = 18756-1) 1.8 1.3-2.1 [facility] magnesium measurement (mass/volume)2020-01-04 05:50:00* Test Item Value Reference Range Interpretation Comments Magnesium Level (test code = 83110-7) 1.8 1.3-2.1 [facility] platelets count by estimate (number/volume)2020-01-03 05:40:00* Test Item Value Reference Range Interpretation Comments Platelet Estimate (test code = 58444-1) ADEQUATE [facility]ate[facility] kfhtnntpcp0536-72-14 05:40:00* Test Item Value Reference Range Interpretation Comments Platelet Morphology Comment (test code = 99748-8) NORMAL [facility] 2020-01-03 05:40:00* Test Item Value Reference Range Interpretation Comments Red Cell Morphology Comment (test code = 6742-1) NORMAL [facility] platelets count by estimate (number/volume)2020-01-03 05:40:00* Test Item Value Reference Range Interpretation Comments Platelet Estimate (test code = 54614-1) ADEQUATE [facility] wfbvxvpwdf6664-67-38 05:40:00* Test Item Value Reference Range Interpretation Comments Platelet Morphology Comment (test code = 42569-4) NORMAL NO EDTA PLT [facility] morphology 2020-01-03 05:40:00* Test Item Value Reference Range Interpretation Comments Red Cell Morphology Comment (test code = 6742-1) NORMAL [facility] platelets count by estimate (number/volume)2020-01-03 05:40:00* Test Item Value Reference Range Interpretation Comments Platelet Estimate (test code = 72779-2) ADEQUATE [facility] fvhcvacaiy0787-42-85 05:40:00* Test Item Value Reference Range Interpretation Comments Platelet Morphology Comment (test code = 98241-6) NORMAL NO EDTA PLT CLUMPSCHI [facility] morphology 2020-01-03 05:40:00* Test Item Value Reference Range Interpretation Comments Red Cell Morphology Comment (test code = 6742-1) NORMAL [facility] BrookFluoroscopic procedure less than one hour ljqjnygt3693-11-69 16:00:00* Test Item Value Reference Range Interpretation Comments Coronavirus (PCR) (test code = Coronavirus (PCR)) NOT DETECTED NOTD ETECTED SARS-COV-2 (COVID19), HIGHRISK, RT-PCRNegative results do not preclude SARS-CoV- 2 infection and should not be used as the sole basis for patient management deci sions. Negative results must be combined with clinical observations, patient his tory, and epidemiological information. Optimum specimen types and timing for pea k viral levels during infections caused by SARS-CoV-2 have not been determined. Collection of multiple specimens ot types of specimens may be necessary to detec t virus. Improper specimen collection and handling, sequence variability under p rimers/probes, or organism present below the limit of detection may lead to fals e negative results. Positive and negative predictive values of testing are highl y dependent on prevalance. False negative test results are more likely when prev alence is high.The expected result is negative (not detected).The SARS-CoV-2 mojgan t is intended for the qualitative detection of nucleic acid from SARS-CoV-2 in n asopharyngeal and oropharyngeal swab samples from patients who meet COVID-19 cli nical and or epidemiological criteria. For lower respiratory tract specimens, th e assay is submitted for authoriztion by FDA under an Emergency Use Authorizatio n (EUA). Testing methodology is real time RT-PCR. If received as separate collec tion devices, nasopharygeal and oropharyngeal specimens are combined for analysi s. Additional specimens may be split to a separate accession for analysi and rep orting as this test includes a single unit of service.Test results must be corre lated with clinical presentation and evaluated in the context of other laborator y and epidemiologic data. Test performance can be affected because the epidemiol ogy and clinical spectrum of infection caused by SARS-CoV-2 is not fully known. For example, the optimum types of specimens to collect and when during the cours e of infection these specimens are most likely to contain detectable viral RNA m ay not be known.This test has not been Food and Drug Administration (FDA) cleare d or approved and has been authorized by FDA under an Emergency Use Authorizatio n (EUA). The test is only authorized for the duration of the declaration that ci rcumstances exist justifying the authorization of emergency use of in vitro diag nostic tests for detection and/or diagnosis of SARS-CoV-2 under section 564(b) o f the Act, 21 U.S.C. section 360bbb-3(b)(1), unless the authorization is termina nicholas or revoked sooner. [facility] are certified under the C linical Laboratory Improvement Amendments of 1988 (CLIA), 42 U.S.C. section 263a , to perform high complexity tests.Testing performed by [facility] [address] [phone] Director: Blake Webber M.D.CLIA # [id number] [facility] Fluoroscopic procedure less than one hour rankvwtd7516-03-52 16:00:00* Test Item Value Reference Range Interpretation Comments Coronavirus (PCR) (test code = Coronavirus (PCR)) NOT DETECTED NOTD ETECTED SARS-COV-2 (COVID19), HIGHRISK, RT-PCRNegative results do not preclude SARS-CoV- 2 infection and should not be used as the sole basis for patient management deci sions. Negative results must be combined with clinical observations, patient his tory, and epidemiological information. Optimum specimen types and timing for pea k viral levels during infections caused by SARS-CoV-2 have not been determined. Collection of multiple specimens ot types of specimens may be necessary to detec t virus. Improper specimen collection and handling, sequence variability under p rimers/probes, or organism present below the limit of detection may lead to fals e negative results. Positive and negative predictive values of testing are highl y dependent on prevalance. False negative test results are more likely when prev alence is high.The expected result is negative (not detected).The SARS-CoV-2 mojgan t is intended for the qualitative detection of nucleic acid from SARS-CoV-2 in n asopharyngeal and oropharyngeal swab samples from patients who meet COVID-19 cli nical and or epidemiological criteria. For lower respiratory tract specimens, th e assay is submitted for authoriztion by FDA under an Emergency Use Authorizatio n (EUA). Testing methodology is real time RT-PCR. If received as separate collec tion devices, nasopharygeal and oropharyngeal specimens are combined for analysi s. Additional specimens may be split to a separate accession for analysi and rep orting as this test includes a single unit of service.Test results must be corre lated with clinical presentation and evaluated in the context of other laborator y and epidemiologic data. Test performance can be affected because the epidemiol ogy and clinical spectrum of infection caused by SARS-CoV-2 is not fully known. For example, the optimum types of specimens to collect and when during the cours e of infection these specimens are most likely to contain detectable viral RNA m ay not be known.This test has not been Food and Drug Administration (FDA) cleare d or approved and has been authorized by FDA under an Emergency Use Authorizatio n (EUA). The test is only authorized for the duration of the declaration that ci rcumstances exist justifying the authorization of emergency use of in vitro diag nostic tests for detection and/or diagnosis of SARS-CoV-2 under section 564(b) o f the Act, 21 U.S.C. section 360bbb-3(b)(1), unless the authorization is termina nicholas or revoked sooner. [facility] are certified under the C linical Laboratory Improvement Amendments of 1988 (CLIA), 42 U.S.C. section 263a , to perform high complexity tests.Testing performed by [facility] [id number] [phone] Director: Blake Webber M.D.CLIA # [id number] Medical Center Southerum or plasma creatine kinase measurement (enzymatic activity/volume)2020-01-01 16:30:00* Test Item Value Reference Range Interpretation Comments Creatine Kinase (test code = 2157-6) 15 30-200 [facility] plasma creatine kinase MB measurement (mass/volume)2020-01-01 16:30:00* Test Item Value Reference Range Interpretation Comments Creatine Kinase MB (test code = 62089-5) 0.90 0-5.0 [facility] BrookTroponin I measurement by highly sensitive enzyme ybtmnvysaap1035-95-71 16:30:00* Test Item Value Reference Range Interpretation Comments Troponin I (test code = 78206-1) 0.015 0-0.300 [facility] hepatitis B virus surface antibody assay by radioimmunoassay (units/volume)2020-01-01 16:30:00* Test Item Value Reference Range Interpretation Comments Hepatitis B Surface Antibody, Quant (test code = 5194-6) 117.1 Immunity>9.9 Status of Immunity Anti-HBs Level Inconsistent with Immunity 0.0 - 9.9Consistent with Immunity >9.9[facility] or plasma hepatitis B virus surface antigen detection by cxerbbkvtze3025-41-64 16:30:00* Test Item Value Reference Range Interpretation Comments Hepatitis B Surface Antigen (test code = 5196-1) Negative Negat [facility]athaH[facility] Kingwooderum or plasma hepatitis B virus core IgM antibody detection by joqzmrxcvqt9749-15-69 16:30:00* Test Item Value Reference Range Interpretation Comments Hepatitis B Core IgM Antibody (test code = 61463-7) Negative Ne gative Performed at: [facility] [id number] Director: Gregor Hernandez MD, Phone: [phone] Medical Center Southerum hepatitis B virus surface antibody assay by radioimmunoassay (units/volume)2020-01-01 16:30:00* Test Item Value Reference Range Interpretation Comments Hepatitis B Surface Antibody, Quant (test code = 5194-6) 117.1 Immunity>9.9 Status of Immunity Anti-HBs Level Inconsistent with Immunity 0.0 - 9.9Consistent with Immunity >9.9[facility]rum or plasma hepatitis B virus surface antigen detection by ernhzxskgvm6505-68-78 16:30:00* Test Item Value Reference Range Interpretation Comments Hepatitis B Surface Antigen (test code = 5196-1) Negative Negat tabatha [facility] or plasma hepatitis B virus core IgM antibody detection by jyqlbzjesnv5316-10-50 16:30:00* Test Item Value Reference Range Interpretation Comments Hepatitis B Core IgM Antibody (test code = 73213-1) Negative Ne gative Performed at: [facility] [address] [place], [place] [id number] Director: Gregor Hernandez MD, Phone: [phone] [facility] hepatitis B virus surface antibody assay by radioimmunoassay (units/volume)2020-01-01 16:30:00* Test Item Value Reference Range Interpretation Comments Hepatitis B Surface Antibody, Quant (test code = 5194-6) 117.1 Immunity>9.9 Status of Immunity Anti-HBs Level Inconsistent with Immunity 0.0 - 9.9Consistent with Immunity >9.9[facility]rum or plasma hepatitis B virus surface antigen detection by jzyvctlhyjt4320-58-58 16:30:00* Test Item Value Reference Range Interpretation Comments Hepatitis B Surface Antigen (test code = 5196-1) Negative Negat tabatha [facility] hemoglobin npvepwwvd7218-77-80 17:43:00* Test Item Value Reference Range Interpretation Comments Stool Occult Blood (test code = 2335-8) POSITIVE NEGATIVE [facility] gastrointestinal hemoglobin ykmrmungy8352-98-48 17:43:00* Test Item Value Reference Range Interpretation Comments Stool Occult Blood (test code = 2335-8) POSITIVE NEGATIVE [facility] gastrointestinal hemoglobin hgjylnwoi8153-39-14 17:43:00* Test Item Value Reference Range Interpretation Comments Stool Occult Blood (test code = 2335-8) POSITIVE NEGATIVE [facility] BrookProthrombin time (PT) in platelet poor plasma by coagulation lltke3567-26-42 17:04:00* Test Item Value Reference Range Interpretation Comments Prothrombin Time (test code = 5902-2) 15.0 11.9-14.5 [facility] BrookINR in Platelet poor plasma by Coagulation cscyk0037-37-16 17:04:00* Test Item Value Reference Range Interpretation Comments Prothromb Time International Ratio (test code = 6301-6) 1.11 Oral Anticoagulant Therapy INR Values:1. Low Intensity Therapy 1.5 - 2.02 . Moderate Intensity Therapy 2.0 - 3.03. High Intensity Therapy(1) 2.5 - 3. 54. High Intensity Therapy(2) 3.0 - 4.05. Panic Value INR > 5.0 [facility] BrookActivated partial thromboplastin time (aPTT) in platelet poor plasma by coagulation klted9208-10-04 17:04:00* Test Item Value Reference Range Interpretation Comments Activated Partial Thromboplast Time (test code = 78928-6) 30.3 23.8-35.5 [facility] plasma thyrotropin measurement by detection limit <= 0.005 miu/l (units/volume)2019-12-26 11:59:00* Test Item Value Reference Range Interpretation Comments Thyroid Stimulating Hormone (TSH) (test code = 94587-8) 3.270 0.350-4.940 Performed at [facility]: 0.350 - 5.500 [facility] or plasma thyrotropin measurement by detection limit <= 0.005 miu/l (units/volume)2019-12-26 11:59:00* Test Item Value Reference Range Interpretation Comments Thyroid Stimulating Hormone (TSH) (test code = 31741-3) 3.270 0.350-4.940 Performed at [facility]: 0.350 - 5.500 [facility] or plasma thyrotropin measurement by detection limit <= 0.005 miu/l (units/volume)2019-12-26 11:59:00* Test Item Value Reference Range Interpretation Comments Thyroid Stimulating Hormone (TSH) (test code = 58997-0) 3.270 0.350-4.940 Performed at [facility]: 0.350 - 5.500 [facility] xksxhcmevge8279-45-69 05:25:00* Test Item Value Reference Range Interpretation Comments Phosphorus Level (test code = DSX9233) 3.8 2.3-4.7 [facility] BrookPhosphorus namhafgckub0295-69-41 05:25:00 * Test Item Value Reference Range Interpretation Comments Phosphorus Level (test code = JBK4421) 3.8 2.3-4.7 [facility] BrookPhosphorus fgvntnyzpst3641-95-07 05:25:00 * Test Item Value Reference Range Interpretation Comments Phosphorus Level (test code = ZGQ1138) 3.8 2.3-4.7 [facility] BrookG I IZYDI2134-61-48 15:31:00 [facility] [address] [address] Patient Name: CHARLOTTE LANDA MR #: [id number] : 1940 Age/Sex: 79/M Req #: [id number] Adm Physician: STEVEN HAWKINS MD Ordered by: RAYMOND STAPLETON MD Report #: [id number] Location: [facility], [place] Room/Bed: [address] [place] [address] Procedure: [id number] NM/G I BLEED Exam Date: Exam Time: REPORT STATUS: Signed ADDENDUM #1 R esults were given to Dr. Raymond Stapleton by phone at 3:45 pm on 12/24/2019. Signed by: Dr. Lilibeth Arellano M.D. on 12/24/2019 3:47 PM ORIGINAL REPOR T Tagged-RBC GI Bleed Study Clinical information: 79-year-old male with melena. Discussion: The patient's own red blood cells were label ed with 25.8 mCi of technetium-99m pertechnetate using the in vitro method (Ul traTag). Dynamic images of the abdomen were obtained through 60 minutes. Distribution of tracer activity initially appears physiologic throughout the abdomen. At 45 minutes into the study, a very small focus of tracer accumulat ion appears in the right mid abdomen laterally. It propagates only slightly i n a curvilinear manner toward the midline. Impression: Very small GI bleed is identified in the right mid abdomen laterally. The bleed appears qu ite small and propagates only slightly. Suspect that it is in small bowel, po ssibly at the ileocecal junction. Signed by: Dr. Lilibeth Arellano M.D. on 12/01 3:36 PM Dictated By: LILIBETH ARELLANO MD 154 Transcribed By: HARRIS on 12/24/19 1536 [employer] Y TO: RAYMOND STAPLETON MD Fluoroscopic procedure less than one hour padsjifw4181-57-52 07:50:00* Test Item Value Reference Range Interpretation Comments Differential Total Cells Counted (test code = Differen tial Total Cells Counted) 100 [facility] blood neutrophils/100 leukocytes 2019-12-23 07:50:00* Test Item Value Reference Range Interpretation Comments Neutrophils % (Manual) (test code = 71835-1) 73 40-74 [facility] blood band neutrophils form/100 cnvazyjxrz3564-81-67 07:50:00* Test Item Value Reference Range Interpretation Comments Band Neutrophils % (test code = 764-1) 2 [facility] blood lymphocytes/100 leukocytes 2019-12-23 07:50:00* Test Item Value Reference Range Interpretation Comments Lymphocytes % (Manual) (test code = 737-7) 19 19-48 [facility] blood monocytes/100 leukocytes 2019-12-23 07:50:00* Test Item Value Reference Range Interpretation Comments Monocytes % (Manual) (test code = 744-3) 6 3.4-9.0 [facility] BrookFluoroscopic procedure less than one hour gshdrazr4301-65-80 07:50:00* Test Item Value Reference Range Interpretation Comments Differential Total Cells Counted (test code = Differen tial Total Cells Counted) 100 [facility] blood neutrophils/100 leukocytes 2019-12-23 07:50:00* Test Item Value Reference Range Interpretation Comments Neutrophils % (Manual) (test code = 73771-5) 73 40-74 [facility]Man[facility] neutrophils form/100 wgkaeyutjx3551-73-22 07:50:00* Test Item Value Reference Range Interpretation Comments Band Neutrophils % (test code = 764-1) 2 [facility] blood lymphocytes/100 leukocytes 2019-12-23 07:50:00* Test Item Value Reference Range Interpretation Comments Lymphocytes % (Manual) (test code = 737-7) 19 - [facility] blood monocytes/100 leukocytes 2019-12-23 07:50:00* Test Item Value Reference Range Interpretation Comments Monocytes % (Manual) (test code = 744-3) 6 3.4-9.0 [facility] BrookFluoroscopic procedure less than one hour cmbemaax4833-37-52 07:50:00* Test Item Value Reference Range Interpretation Comments Differential Total Cells Counted (test code = Ying tial Total Cells Counted) 100 [facility] blood neutrophils/100 leukocytes 2019-12-23 07:50:00* Test Item Value Reference Range Interpretation Comments Neutrophils % (Manual) (test code = 77048-8) 73 40-74 [facility] blood band neutrophils form/100 quhxmgtper8360-46-11 07:50:00* Test Item Value Reference Range Interpretation Comments Band Neutrophils % (test code = 764-1) 2 [facility] blood lymphocytes/100 leukocytes 2019-12-23 07:50:00* Test Item Value Reference Range Interpretation Comments Lymphocytes % (Manual) (test code = 737-7) 19 [facility] blood monocytes/100 leukocytes 2019-12-23 07:50:00* Test Item Value Reference Range Interpretation Comments Monocytes % (Manual) (test code = 744-3) 6 3.4-9.0 [facility] BrookClostridium difficile A and B toxin assay 2019-12-20 18:13:00* Test Item Value Reference Range Interpretation Comments Clostridium Difficile Toxin A & B (test code = 791329607) NEGATIVE NEGATIVE Testing on stool aspirate specimens is outside cleaner and dyer claims since specime n type not validated on this assay.[facility] Clostridium difficile A and B toxin [id number] 18:13:00* Test Item Value Reference Range Interpretation Comments Clostridium Difficile Toxin A & B (test code = 160628619) NEGATIVE NEGATIVE Testing on stool aspirate specimens is outside cleaner and dyer claims since specime n type not validated on this assay.[facility] Clostridium difficile A and B toxin [id number] 18:13:00* Test Item Value Reference Range Interpretation Comments Clostridium Difficile Toxin A & B (test code = 549044210) NEGATIVE NEGATIVE Testing on stool aspirate specimens is outside cleaner and dyer claims since specime n type not validated on this assay.[facility] BrookManual blood eosinophil count as percentage of total tvgnybbgor9690-10-28 06:15:00* Test Item Value Reference Range Interpretation Comments Eosinophils % (Manual) (test code = 714-6) 1 0-7 [facility] as percentage of total pvklpwhsbc4845-38-13 06:15:00* Test Item Value Reference Range Interpretation Comments Eosinophils % (Manual) (test code = 714-6) 1 0-7 [facility] BrookManual blood eosinophil count as percentage of total xjlszgxubc8091-92-88 06:15:00* Test Item Value Reference Range Interpretation Comments Eosinophils % (Manual) (test code = 714-6) 1 0-7 [facility] hypochromia detection by light hdgbgoezlv3904-10-64 05:25:00* Test Item Value Reference Range Interpretation Comments Hypochromasia (test code = 728-6) MODERATE [facility]Blood hypochromia detection by light gvdiikkfme9880-72-82 05:25:00* Test Item Value Reference Range Interpretation Comments Hypochromasia (test code = 728-6) [facility]ATE [facility] hypochromia detection by light opebdafnao6678-29-94 05:25:00* Test Item Value Reference Range Interpretation Comments Hypochromasia (test code = 728-6) [facility] identification of body rxxby0469-34-68 16:09:00* Test Item Value Reference Range Interpretation Comments Body Fluid Type (test code = 65588-6) SYNOVIAL [facility] BrookEvaluation of color of body fluid 2019-12-14 16:09:00* Test Item Value Reference Range Interpretation Comments Body Fluid Color (test code = 6824-7) RED PINKAdventHealth Rollins BrookDetermination of appearance of body webtu6241-47-34 16:09:00* Test Item Value Reference Range Interpretation Comments Body Fluid Appearance (test code = 9335-1) TURBID [facility] body fluid leukocytes count (number/volume)2019-12-14 16:09:00* Test Item Value Reference Range Interpretation Comments Body Fluid WBC (test code = 6743-9) 95667 [facility] body fluid erythrocytes count (number/volume)2019-12-14 16:09:00* Test Item Value Reference Range Interpretation Comments Body Fluid RBC (test code = 6741-3) 63636 [facility] body fluid neutrophils/100 vcmeeicbkz4744-95-43 16:09:00* Test Item Value Reference Range Interpretation Comments Body Fluid Neutrophils (test code = 36178-1) 13 [facility] fluid lymphocyte vckxf0667-78-89 16:09:00* Test Item Value Reference Range Interpretation Comments Body Fluid Lymphocytes (test code = 48278213) 32 [facility] BrookBody fluid monocyte diomn3710-09-91 16:09:00* Test Item Value Reference Range Interpretation Comments Body Fluid Monocytes (test code = 54208-5) 55 [facility] BrookTotal cell yiegy4269-30-58 16:09:00* Test Item Value Reference Range Interpretation Comments Body Fluid Total Cells Counted (test code = 55669-5) 100 [facility] identification of body lnpqd4215-09-61 16:09:00* Test Item Value Reference Range Interpretation Comments Body Fluid Type (test code = 86323-9) SYNOVIAL [facility] BrookEvaluation of color of body fluid 2019-12-14 16:09:00* Test Item Value Reference Range Interpretation Comments Body Fluid Color (test code = 6824-7) RED PINKAd[facility]Health [facility] BrookDetermination of appearance of body wuumh3980-50-57 16:09:00* Test Item Value Reference Range Interpretation Comments Body Fluid Appearance (test code = 9335-1) TURBID [facility] body fluid leukocytes count (number/volume)2019-12-14 16:09:00* Test Item Value Reference Range Interpretation Comments Body Fluid WBC (test code = 6743-9) 14468 [facility] body fluid erythrocytes count (number/volume)2019-12-14 16:09:00* Test Item Value Reference Range Interpretation Comments Body Fluid RBC (test code = 6741-3) 89811 [facility] body fluid neutrophils/100 ajrrtutftn5863-09-11 16:09:00* Test Item Value Reference Range Interpretation Comments Body Fluid Neutrophils (test code = 69784-8) 13 [facility] fluid lymphocyte wzjda2549-03-63 16:09:00* Test Item Value Reference Range Interpretation Comments Body Fluid Lymphocytes (test code = 28803737) 32 [facility] BrookBody fluid monocyte dkdmg6636-29-28 16:09:00* Test Item Value Reference Range Interpretation Comments Body Fluid Monocytes (test code = 44427-3) 55 [facility] BrookTotal cell zchxd1965-60-34 16:09:00* Test Item Value Reference Range Interpretation Comments Body Fluid Total Cells Counted (test code = 04483-2) 100 [facility] identification of body dvfgn2745-08-21 16:09:00* Test Item Value Reference Range Interpretation Comments Body Fluid Type (test code = 49914-0) SYNOVIAL [facility] BrookEvaluation of color of body fluid 2019-12-14 16:09:00* Test Item Value Reference Range Interpretation Comments Body Fluid Color (test code = 6824-7) RED PINKAd[facility]Health Roll[facility] BrookDetermination of appearance of body zjxcd5603-25-44 16:09:00* Test Item Value Reference Range Interpretation Comments Body Fluid Appearance (test code = 9335-1) TURBID [facility] body fluid leukocytes count (number/volume)2019-12-14 16:09:00* Test Item Value Reference Range Interpretation Comments Body Fluid WBC (test code = 6743-9) 74067 [facility] body fluid erythrocytes count (number/volume)2019-12-14 16:09:00* Test Item Value Reference Range Interpretation Comments Body Fluid RBC (test code = 6741-3) 53964 [facility] body fluid neutrophils/100 asvpgtyjdw6154-47-00 16:09:00* Test Item Value Reference Range Interpretation Comments Body Fluid Neutrophils (test code = 78688-6) 13 [facility] BrookBody fluid lymphocyte zramy4551-82-53 16:09:00* Test Item Value Reference Range Interpretation Comments Body Fluid Lymphocytes (test code = 10369896) 32 [facility] BrookBody fluid monocyte gzdgt4978-89-24 16:09:00* Test Item Value Reference Range Interpretation Comments Body Fluid Monocytes (test code = 38131-7) 55 [facility] BrookTotal cell ncsbf7254-70-12 16:09:00* Test Item Value Reference Range Interpretation Comments Body Fluid Total Cells Counted (test code = 67518-8) 100 [facility] BrookBacteria identification in wound by pjdsvnf3130-17-71 15:56:00* Test Item Value Reference Range Interpretation Comments Wound Culture (test code = 6462-6) STAPHYLOCOCCUS AUREUS [facility] BrookBacteria identification in wound by vvlcpaq1609-95-17 15:56:00* Test Item Value Reference Range Interpretation Comments Wound Culture (test code = 6462-6) STAPHYLOCOCCUS AUREUS [facility] BrookBacteria identification in wound by nepjwjp6689-68-89 15:56:00* Test Item Value Reference Range Interpretation Comments Wound Culture (test code = 6462-6) STAPHYLOCOCCUS AUREUS [facility] BrookCHEST SINGLE (PORTABLE)2019-12-14 15:13:00 [place] [address] Patient Name: CHARLOTTE LANDA MR #: [id number] : 1940 Age/Sex: 79/M Req #: [id number] [facility] Physician: Ordered by: ROSIE CH MD Report #: [id number] Location: OR Room/Bed: Procedure: [id number] DX/CHEST SINGLE (PORTABLE) Exam Date: 12/14/19 Exam Time: 1438 REPORT STATUS: Signed EXAMINATION: C HEST SINGLE (PORTABLE) INDICATION: Pre-operative COMPARISON: None FINDINGS: LINES/TUBES:None LUNGS:The lungs are well-inflated . No focal consolidation or pulmonary edema. PLEURA:No pleural effusion or pneumothorax. MEDIASTINUM:The cardiomediastinal silhouette appears normal i n size and shape. BONES/SOFT TISSUES:No acute osseous injury. ABDOMEN: No free air under the diaphragm. IMPRESSION: No focal pneumonia or pu lmonary edema. Signed by: Romana Hawkins MD on 12/14/2019 3:13 PM Dictat ed By: ROMANA HAWKINS MD 12 Transcribed By: HARRIS on 12/14/191512 COPY TO: ROSIE CH MD Blood poikilocytosis detection by light uinadkykzm4745-90-94 14:45:00* Test Item Value Reference Range Interpretation Comments Poikilocytosis (test code = 779-9) SLIGHT [facility] poikilocytosis detection by light togqweywjv4031-50-58 14:45:00* Test Item Value Reference Range Interpretation Comments Poikilocytosis (test code = 779-9) SLIGHT [facility] poikilocytosis detection by light pcqevpcemz5702-16-46 14:45:00* Test Item Value Reference Range Interpretation Comments Poikilocytosis (test code = 779-9) SLIGHT [facility] THREE YMYUN3285-31-57 15:08:00 [place] [address] Patient Name: CHARLOTTE LANDA MR #: [id number] : 1940 Age/Sex: 79/M Req #: [id number] Adm Physician: Ordered by: TALIA BIRMINGHAM MD Repor t #: [id number] Location: ER Room/Bed : Procedure: [id number] DX/KNEE RIGHT TH REE VIEWS Exam Date: 12/13/19 Exam Time: 1430 REPORT STATUS: Signed EXAMINATION: KN EE RIGHT THREE VIEWS INDICATION: Knee swelling COMPARISON: None FINDINGS: No acute fracture or dislocation. Alignment is anatomic. Small suprapatellar joint effusion. Moderate patellofemoral compartment predom inant tricompartmental degenerative changes. Atherosclerotic arterial calcific ations. IMPRESSION: No acute osseous injury. Small suprapatellar robret int effusion. Moderate degenerative changes. Signed by: Romana Hawkins MD on 12/13/2019 3:09 PM Dictated By: ROMANA HAWKINS MD 08 Transcribed By: HARRIS on 12/13/191508 COPY TO: TALIA BIRMINGHAM MD SHOULDER LEFT FHKUIOKF0390-41-99 15:07:00 [place] [address] Patient Name: CHARLOTTE LANDA MR #: [id number] : 1940 Age/Sex: 79/M Req #: [id number] Adm Physician: Ordered by: TALIA BIRMINGHAM MD Repor t #: [id number] Location: ER Room/Bed : Procedure: [id number] DX/SHOULDER LEFT COMPLETE Exam Date: 12/13/19 Exam Time: 1442 REPORT STATUS: Signed EXAMINATION: OULDER LEFT COMPLETE INDICATION: Trauma COMPARISON: None FINDINGS: No acute fracture or dislocation. Alignment is anatomic. Mild de generative changes of the glenohumeral and acromioclavicular joints. The visua lized portions of the left lung are clear. Soft tissues appear unremarkable. IMPRESSION: No acute osseous injury of the left shoulder. Signed by: Romana Hawkins MD on 12/13/2019 3:08 PM Dictated By: ROMANA HAWKINS MD Electron ically Signed By: ROMANA HAWKINS MD on 12/13/191507 Transcribed By: HARRIS on 1507 COPY TO: TALIA BIRMINGHAM MD Blood leukocytes automated count (number/volume)2019-12-13 14:33:00* Test Item Value Reference Range Interpretation Comments White Blood Count (test code = 6690-2) 12.73 4.8-10.8 [facility] erythrocytes automated count (number/volume)2019-12-13 14:33:00* Test Item Value Reference Range Interpretation Comments Red Blood Count (test code = 789-8) 2.45 4.3-5.7 [facility]Blood hemoglobin measurement (moles/volume)2019-12-13 14:33:00* Test Item Value Reference Range Interpretation Comments Hemoglobin (test code = 53446-6) 7.6 14.0-18.0 [facility] BrookAutomated blood hematocrit (volume fraction)2019-12-13 14:33:00* Test Item Value Reference Range Interpretation Comments Hematocrit (test code = 4544-3) 23.5 38.2-49.6 [facility] BrookAutomated erythrocyte mean corpuscular wzokwi3211-16-20 14:33:00* Test Item Value Reference Range Interpretation Comments Mean Corpuscular Volume (test code = 787-2) 95.9 81-99 [facility] BrookAutomated erythrocyte mean corpuscular hemoglobin (mass per erythrocyte)2019-12-13 14:33:00* Test Item Value Reference Range Interpretation Comments Mean Corpuscular Hemoglobin (test code = 785-6) 31.0 28-32 [facility] BrookAutomated erythrocyte mean corpuscular hemoglobin concentration measurement (mass/volume)2019-12-13 14:33:00* Test Item Value Reference Range Interpretation Comments Mean Corpuscular Hemoglobin Concent (test code = 786-4) 32.3 31-35 [facility] BrookRDW CeuRx-Joe9709-68-13 14:33:00* Test Item Value Reference Range Interpretation Comments Red Cell Distribution Width (test code = 64362-4) 15.7 11.7 -14.4 [facility] BrookAutomated blood platelet count (count/volume)2019-12-13 14:33:00* Test Item Value Reference Range Interpretation Comments Platelet Count (test code = 777-3) 155 140-360 [facility] BrookAutomated blood segmented neutrophil count as percentage of total kaeltipjep2333-19-10 14:33:00* Test Item Value Reference Range Interpretation Comments Neutrophils (%) (Auto) (test code = 59749-4) 89.9 38.7-80.0 [facility] BrookAutomated blood lymphocyte count as percentage ot total jnsdgvrnqv1137-28-46 14:33:00* Test Item Value Reference Range Interpretation Comments Lymphocytes (%) (Auto) (test code = 736-9) 5.3 18.0-39.1 [facility] BrookAutomated blood monocyte count as percentage of total aoznhwjyyj0236-17-61 14:33:00* Test Item Value Reference Range Interpretation Comments Monocytes (%) (Auto) (test code = 5905-5) 3.1 4.4-11.3 [facility] BrookAutomated blood eosinophil count as percentage of total idypcfeqpm6549-02-83 14:33:00* Test Item Value Reference Range Interpretation Comments Eosinophils (%) (Auto) (test code = 713-8) 0.2 0.0-6.0 [facility] BrookAutomated blood basophil count as percentage of total ucrixsnetq8424-95-64 14:33:00* Test Item Value Reference Range Interpretation Comments Basophils (%) (Auto) (test code = 706-2) 0.2 0.0-1.0 [facility] BrookFluoroscopic procedure less than one hour hixtobdq5584-34-32 14:33:00* Test Item Value Reference Range Interpretation Comments IM GRANULOCYTES % (test code = IM GRANULOCYTES %) 1.3 0.0- 1.0 [facility] BrookAutomated blood neutrophil count 2019-12-13 14:33:00* Test Item Value Reference Range Interpretation Comments Neutrophils # (Auto) (test code = 751-8) 11.5 2.1-6.9 [facility] BrookBlood lymphocytes count (number/volume) 2019-12-13 14:33:00* Test Item Value Reference Range Interpretation Comments Lymphocytes # (Auto) (test code = 13442-9) 0.7 1.0-3.2 [facility]Blood monocytes automated count (number/volume)2019-12-13 14:33:00* Test Item Value Reference Range Interpretation Comments Monocytes # (Auto) (test code = 742-7) 0.4 0.2-0.8 [facility] BrookAutomated blood eosinophil count 2019-12-13 14:33:00* Test Item Value Reference Range Interpretation Comments Eosinophils # (Auto) (test code = 711-2) 0.0 0.0-0.4 [facility] BrookAutomated blood basophil count (count/volume)2019-12-13 14:33:00* Test Item Value Reference Range Interpretation Comments Basophils # (Auto) (test code = 704-7) 0.0 0.0-0.1 [facility] BrookFluoroscopic procedure less than one hour nbsapxsk6854-43-52 14:33:00* Test Item Value Reference Range Interpretation Comments Absolute Immature Granulocyte (auto (mojgan t code = Absolute Immature Granulocyte (auto) 0.16 0-0.1 [facility] BrookProthrombin time (PT) in platelet poor plasma by coagulation gqzbh8550-58-81 14:33:00* Test Item Value Reference Range Interpretation Comments Prothrombin Time (test code = 5902-2) 14.9 11.9-14.5 [facility] BrookINR in Platelet poor plasma by Coagulation midzc4972-75-96 14:33:00* Test Item Value Reference Range Interpretation Comments Prothromb Time International Ratio (test code = 6301-6) 1.10 Oral Anticoagulant Therapy INR Values:1. Low Intensity Therapy 1.5 - 2.02 . Moderate Intensity Therapy 2.0 - 3.03. High Intensity Therapy(1) 2.5 - 3. 54. High Intensity Therapy(2) 3.0 - 4.05. Panic Value INR > 5.0 [facility] BrookActivated partial thromboplastin time (aPTT) in platelet poor plasma by coagulation jlwod6049-02-74 14:33:00* Test Item Value Reference Range Interpretation Comments Activated Partial Thromboplast Time (test code = 42571-9) 25.8 23.8-35.5 [facility] Southerum or plasma sodium measurement (moles/volume)2019-12-13 14:33:00* Test Item Value Reference Range Interpretation Comments Sodium Level (test code = 2951-2) 130 136-145 [facility] Southerum or plasma potassium measurement (moles/volume)2019-12-13 14:33:00* Test Item Value Reference Range Interpretation Comments Potassium Level (test code = 2823-3) 5.2 3.5-5.1 [facility] Southerum or plasma chloride measurement (moles/volume)2019-12-13 14:33:00* Test Item Value Reference Range Interpretation Comments Chloride Level (test code = 2075-0) 88 98-107 [facility] Southerum or plasma carbon dioxide, total measurement (moles/volume)2019-12-13 14:33:00* Test Item Value Reference Range Interpretation Comments Carbon Dioxide Level (test code = 2028-9) 26 22-29 [facility]herum or plasma anion pgi2838-15-22 14:33:00* Test Item Value Reference Range Interpretation Comments Anion Gap (test code = 74769-4) 21.2 8-16 [facility]herum or plasma urea nitrogen measurement (mass/volume)2019-12-13 14:33:00* Test Item Value Reference Range Interpretation Comments Blood Urea Nitrogen (test code = 3094-0) 95 7-26 [facility]herum or plasma creatinine measurement (mass/volume)2019-12-13 14:33:00* Test Item Value Reference Range Interpretation Comments Creatinine (test code = 2160-0) 8.31 0.72-1.25 [facility] Southerum or plasma urea nitrogen/creatinine mass jzpdr2063-37-56 14:33:00* Test Item Value Reference Range Interpretation Comments BUN/Creatinine Ratio (test code = 3097-3) 11 6-25 [facility] BrookEstimated glomerular filtration rate (GFR) pcxdahpjcpiqx8971-18-28 14:33:00* Test Item Value Reference Range Interpretation Comments Estimat Glomerular Filtration Rate (test code = 884418270) 6 >60 Ranges were taken from the National Kidney Disease Education Program and the Aleisha counts include [facility] literature.Reference ranges:60 or greater: Uforwi22-57 ( for 3 consecutive months): Chronic kidney disease 15 or less: Kidney failureAdventHealth Rollins BrookGlucose fdmtowxupru2301-94-45 14:33:00* Test Item Value Reference Range Interpretation Comments Glucose Level (test code = VCC6314) 522 74-118 Results repeated and called to [Dr. [place]] at 1520 on 12/13/19 by Zoraida Victoria. Re ad back and verified.[facility]herum or plasma calcium measurement (mass/volume)2019-12-13 14:33:00* Test Item Value Reference Range Interpretation Comments Calcium Level (test code = 33343-5) 8.1 8.4-10.2 [facility]herum or plasma total bilirubin measurement (mass/volume)2019-12-13 14:33:00* Test Item Value Reference Range Interpretation Comments Total Bilirubin (test code = 1975-2) 0.3 0.2-1.2 [facility] BrookFluoroscopic procedure less than one hour krolyedx4645-07-09 14:33:00* Test Item Value Reference Range Interpretation Comments Aspartate Amino Transf (AST/SGOT) (test code = Aspartate Amino Transf (AST/SGOT)) 7 5-34 [facility]herum or plasma alanine aminotransferase measurement (enzymatic activity/volume)2019-12-13 14:33:00* Test Item Value Reference Range Interpretation Comments Alanine Aminotransferase (ALT/SGPT) (test code = 1742-6) 17 0-55 [facility]herum or plasma protein measurement (mass/volume)2019-12-13 14:33:00* Test Item Value Reference Range Interpretation Comments Total Protein (test code = 2885-2) 6.3 6.5-8.1 [facility]herum or plasma albumin measurement (mass/volume)2019-12-13 14:33:00* Test Item Value Reference Range Interpretation Comments Albumin (test code = 1751-7) 1.6 3.5-5.0 [facility] BrookPlasma globulin measurement (mass/volume) 2019-12-13 14:33:00* Test Item Value Reference Range Interpretation Comments Globulin (test code = 56097-4) 4.7 2.3-3.5 [facility]herum or plasma albumin/globulin mass rwkvr9526-85-67 14:33:00* Test Item Value Reference Range Interpretation Comments Albumin/Globulin Ratio (test code = 1759-0) 0.3 0.8-2.0 [facility]herum or plasma alkaline phosphatase measurement (enzymatic activity/volume)2019-12-13 14:33:00* Test Item Value Reference Range Interpretation Comments Alkaline Phosphatase (test code = 6768-6) 97 40-150 [facility]Blood anisocytosis detection by light rqclbgyoxm0137-24-53 14:33:00* Test Item Value Reference Range Interpretation Comments Anisocytosis (test code = 702-1) SLIGHT [facility] BrookBlood anisocytosis detection by light cyhvebwghi8092-40-18 14:33:00* Test Item Value Reference Range Interpretation Comments Anisocytosis (test code = 702-1) SLIGHT [facility] BrookBlood anisocytosis detection by light jheanlqifp0328-90-94 14:33:00* Test Item Value Reference Range Interpretation Comments Anisocytosis (test code = 702-1) SLIGHT [facility] Roll[facility] BrookKNEE RIGHT THREE NOMHX3960-31-52 20:31:00 [facility] [address] [place] [address] Patient Name: CHARLOTTE LANDA MR #: [id number] : 1940 Age/Sex: 79/M Req #: [id number] Adm Physician: Ordered by: DOLLY CRAWFORD [employer] O[employer]ATOR Report #: [id number] Location: ER Room/Bed: Procedure: [id number] DX/KNEE RIGHT THREE VIEWS Exam Date: 12/02/19 [...] PAPI VILLARREAL MD on 12/02/192034 Transcribed By: COMT RAN on 12/02/192034 COPY TO: DOLLY CRAWFORD NP Capillary blood glucose measurement by glucometer (mass/volume)2019-05-30 10:55:00* Test Item Value Reference Range Interpretation Comments Bedside Glucose (test code = 09094-6) 279 70-120 Meter ID: [id number] [facility] DistrictCap[facility] glucose measurement by glucometer (mass/volume)2019-05-30 10:55:00* Test Item Value Reference Range Interpretation Comments Bedside Glucose (test code = 34977-5) 279 70-120 Meter ID: [id number] Hermann [facility] HospitalBedside Glucose 2019-05-29 19:57:00* Test Item Value Reference Range Interpretation Comments Bedside Glucose (test code = 98733-3) 152 70-120 H Meter ID: [id number] Rollins BrookDifferential Total Cells Athndjd8495-17-24 10:10:00* Test Item Value Reference Range Interpretation Comments Differential Total Cells Counted (test code = Ying tial Total Cells Counted) 100 [facility] BrookNeutrophils % (Manual)2019-05-29 10:10:00 * Test Item Value Reference Range Interpretation Comments Neutrophils % (Manual) (test code = 27369-3) 61 40-74 [facility] BrookLymphocytes % (Manual)2019-05-29 10:10:00 * Test Item Value Reference Range Interpretation Comments Lymphocytes % (Manual) (test code = 737-7) 37 19-48 [facility] BrookMonocytes % (Manual)2019-05-29 10:10:00* Test Item Value Reference Range Interpretation Comments Monocytes % (Manual) (test code = 744-3) 2 3.4-9.0 L [facility] BrookPlatelet Eynrouvv8962-70-53 10:10:00* Test Item Value Reference Range Interpretation Comments Platelet Estimate (test code = 84789-9) ADEQUATE [facility] BrookPlatelet Morphology Xbmlwzq6013-52-98 10:10:00* Test Item Value Reference Range Interpretation Comments Platelet Morphology Comment (test code = 86651-0) NORMAL [facility] BrookRed Cell Morphology Notchta6202-46-80 10:10:00* Test Item Value Reference Range Interpretation Comments Red Cell Morphology Comment (test code = 6742-1) NORMAL [facility] Southodium Jatnu7908-65-25 09:44:00* Test Item Value Reference Range Interpretation Comments Sodium Level (test code = 2951-2) 131 136-145 L [facility] BrookPotassium Keuqb5296-58-53 09:44:00* Test Item Value Reference Range Interpretation Comments Potassium Level (test code = 2823-3) 5.1 3.5-5.1 [facility] BrookChloride Xqkqt8796-08-76 09:44:00* Test Item Value Reference Range Interpretation Comments Chloride Level (test code = 2075-0) 91 98-107 L [facility] BrookCarbon Dioxide Dnlfh0157-57-97 09:44:00* Test Item Value Reference Range Interpretation Comments Carbon Dioxide Level (test code = 2028-9) 20 22-29 L [facility] BrookAnion Ycd5194-82-52 09:44:00* Test Item Value Reference Range Interpretation Comments Anion Gap (test code = 42194-4) 25.1 8-16 H [facility] BrookBlood Urea Lwctuqlk4571-05-47 09:44:00* Test Item Value Reference Range Interpretation Comments Blood Urea Nitrogen (test code = 3094-0) 83 7-26 H [facility] BrookCreatinine2019-10-28 09:44:00* Test Item Value Reference Range Interpretation Comments Creatinine (test code = 2160-0) 10.37 0.72-1.25 H [facility] BrookBUN/Creatinine Vqjfe0848-09-42 09:44:00* Test Item Value Reference Range Interpretation Comments BUN/Creatinine Ratio (test code = 3097-3) 8 6-25 [facility] BrookEstimat Glomerular Filtration Rate 2019-05-29 09:44:00* Test Item Value Reference Range Interpretation Comments Estimat Glomerular Filtration Rate (test code = 497090468) 5 >60 L Ranges were taken from the National Kidney Disease Education Program and the [facility] literature.Reference ranges:60 or greater: Pehbup63-37 ( for 3 consecutive months): Chronic kidney disease 15 or less: Kidney failureAdventHealth Rollins BrookGlucose Pglwh1930-34-67 09:44:00* Test Item Value Reference Range Interpretation Comments Glucose Level (test code = YZO1451) 229 74-118 H [facility] BrookCalcium Acrvv6471-20-12 09:44:00* Test Item Value Reference Range Interpretation Comments Calcium Level (test code = 77059-8) 9.0 8.4-10.2 [facility] BrookTotal Cqbzwnnmp6838-89-15 09:44:00* Test Item Value Reference Range Interpretation Comments Total Bilirubin (test code = 1975-2) 0.4 0.2-1.2 [facility] BrookAspartate Amino Transf (AST/SGOT) 2019-05-29 09:44:00* Test Item Value Reference Range Interpretation Comments Aspartate Amino Transf (AST/SGOT) (test code = Aspartate Amino Transf (AST/SGOT)) 7 5-34 [facility] BrookAlanine Aminotransferase (ALT/SGPT) 2019-05-29 09:44:00* Test Item Value Reference Range Interpretation Comments Alanine Aminotransferase (ALT/SGPT) (test code = 1742-6) 12 0-55 [facility] BrookTotal Nucdimi2218-06-77 09:44:00* Test Item Value Reference Range Interpretation Comments Total Protein (test code = 2885-2) 6.9 6.5-8.1 [facility] BrookAlbumin2019-10-28 09:44:00* Test Item Value Reference Range Interpretation Comments Albumin (test code = 1751-7) 3.1 3.5-5.0 L [facility] BrookGlobulin2019-10-28 09:44:00* Test Item Value Reference Range Interpretation Comments Globulin (test code = 46184-8) 3.8 2.3-3.5 H [facility] BrookAlbumin/Globulin Unikh3545-16-88 09:44:00 * Test Item Value Reference Range Interpretation Comments Albumin/Globulin Ratio (test code = 1759-0) 0.8 0.8-2.0 [facility] BrookAlkaline Zadhmgglpgx4068-33-31 09:44:00* Test Item Value Reference Range Interpretation Comments Alkaline Phosphatase (test code = 6768-6) 45 40-150 [facility] BrookWhite Blood Lbdfi3715-66-94 09:21:00* Test Item Value Reference Range Interpretation Comments White Blood Count (test code = 6690-2) 14.12 4.8-10.8 H [facility] BrookRed Blood Opbji6798-57-88 09:21:00* Test Item Value Reference Range Interpretation Comments Red Blood Count (test code = 789-8) 4.53 4.3-5.7 [facility] BrookHemoglobin2019-10-28 09:21:00* Test Item Value Reference Range Interpretation Comments Hemoglobin (test code = 81176-8) 13.9 14.0-18.0 L [facility] BrookHematocrit2019-10-28 09:21:00* Test Item Value Reference Range Interpretation Comments Hematocrit (test code = 4544-3) 42.8 38.2-49.6 [facility] BrookMean Corpuscular Hsvfbe4831-08-12 09:21:00* Test Item Value Reference Range Interpretation Comments Mean Corpuscular Volume (test code = 787-2) 94.5 81-99 [facility] BrookMean Corpuscular Wdthowbxks6142-29-64 09:21:00* Test Item Value Reference Range Interpretation Comments Mean Corpuscular Hemoglobin (test code = 785-6) 30.7 28-32 [facility] BrookMean Corpuscular Hemoglobin Concent 2019-05-29 09:21:00* Test Item Value Reference Range Interpretation Comments Mean Corpuscular Hemoglobin Concent (test code = 786-4) 32.5 31-35 [facility] BrookRed Cell Distribution Zidjh7724-28-79 09:21:00* Test Item Value Reference Range Interpretation Comments Red Cell Distribution Width (test code = 53873-2) 15.3 11.7 -14.4 H [facility] BrookPlatelet Mzxvg0887-72-34 09:21:00* Test Item Value Reference Range Interpretation Comments Platelet Count (test code = 777-3) 190 140-360 [facility] BrookNeutrophils (%) (Auto)2019-05-29 09:21:00 * Test Item Value Reference Range Interpretation Comments Neutrophils (%) (Auto) (test code = 25830-4) 62.0 38.7-80.0 [facility] BrookLymphocytes (%) (Auto)2019-05-29 09:21:00 * Test Item Value Reference Range Interpretation Comments Lymphocytes (%) (Auto) (test code = 736-9) 36.3 18.0-39.1 [facility] BrookMonocytes (%) (Auto)2019-05-29 09:21:00* Test Item Value Reference Range Interpretation Comments Monocytes (%) (Auto) (test code = 5905-5) 1.3 4.4-11.3 L [facility] BrookEosinophils (%) (Auto)2019-05-29 09:21:00 * Test Item Value Reference Range Interpretation Comments Eosinophils (%) (Auto) (test code = 713-8) 0.0 0.0-6.0 [facility] BrookBasophils (%) (Auto)2019-05-29 09:21:00* Test Item Value Reference Range Interpretation Comments Basophils (%) (Auto) (test code = 706-2) 0.1 0.0-1.0 [facility] BrookIM GRANULOCYTES %2019-05-29 09:21:00* Test Item Value Reference Range Interpretation Comments IM GRANULOCYTES % (test code = IM GRANULOCYTES %) 0.3 0.0- 1.0 [facility] BrookNeutrophils # (Auto)2019-05-29 09:21:00* Test Item Value Reference Range Interpretation Comments Neutrophils # (Auto) (test code = 751-8) 8.8 2.1-6.9 H [facility] BrookLymphocytes # (Auto)2019-05-29 09:21:00* Test Item Value Reference Range Interpretation Comments Lymphocytes # (Auto) (test code = 53269-7) 5.1 1.0-3.2 H [facility] BrookMonocytes # (Auto)2019-05-29 09:21:00* Test Item Value Reference Range Interpretation Comments Monocytes # (Auto) (test code = 742-7) 0.2 0.2-0.8 [facility] BrookEosinophils # (Auto)2019-05-29 09:21:00* Test Item Value Reference Range Interpretation Comments Eosinophils # (Auto) (test code = 711-2) 0.0 0.0-0.4 [facility] BrookBasophils # (Auto)2019-05-29 09:21:00* Test Item Value Reference Range Interpretation Comments Basophils # (Auto) (test code = 704-7) 0.0 0.0-0.1 [facility] BrookAbsolute Immature Granulocyte (auto 2019-05-29 09:21:00* Test Item Value Reference Range Interpretation Comments Absolute Immature Granulocyte (auto (mojgan t code = Absolute Immature Granulocyte (auto) 0.04 0-0.1 [facility] BrookBlood leukocytes automated count (number/volume)2019-05-29 09:10:00* Test Item Value Reference Range Interpretation Comments White Blood Count (test code = 6690-2) 14.12 4.8-10.8 [facility] BrookBlood erythrocytes automated count (number/volume)2019-05-29 09:10:00* Test Item Value Reference Range Interpretation Comments Red Blood Count (test code = 789-8) 4.53 4.3-5.7 [facility] BrookBlood hemoglobin measurement (moles/volume)2019-05-29 09:10:00* Test Item Value Reference Range Interpretation Comments Hemoglobin (test code = 76873-2) 13.9 14.0-18.0 [facility] BrookAutomated blood hematocrit (volume fraction)2019-05-29 09:10:00* Test Item Value Reference Range Interpretation Comments Hematocrit (test code = 4544-3) 42.8 38.2-49.6 [facility] BrookAutomated erythrocyte mean corpuscular fnthxy6665-19-51 09:10:00* Test Item Value Reference Range Interpretation Comments Mean Corpuscular Volume (test code = 787-2) 94.5 81-99 [facility] BrookAutomated erythrocyte mean corpuscular hemoglobin (mass per erythrocyte)2019-05-29 09:10:00* Test Item Value Reference Range Interpretation Comments Mean Corpuscular Hemoglobin (test code = 785-6) 30.7 28-32 [facility] BrookAutomated erythrocyte mean corpuscular hemoglobin concentration measurement (mass/volume)2019-05-29 09:10:00* Test Item Value Reference Range Interpretation Comments Mean Corpuscular Hemoglobin Concent (test code = 786-4) 32.5 31-35 [facility]-Nsz1193-13-28 09:10:00* Test Item Value Reference Range Interpretation Comments Red Cell Distribution Width (test code = 75691-3) 15.3 11.7 -14.4 [facility] BrookAutomated blood platelet count (count/volume)2019-05-29 09:10:00* Test Item Value Reference Range Interpretation Comments Platelet Count (test code = 777-3) 190 140-360 [facility] segmented neutrophil count as percentage of total dzolkaojns8697-44-16 09:10:00* Test Item Value Reference Range Interpretation Comments Neutrophils (%) (Auto) (test code = 71511-7) 62.0 38.7-80.0 [facility] BrookAutomated blood lymphocyte count as percentage ot total eqjxaqirpe7379-11-78 09:10:00* Test Item Value Reference Range Interpretation Comments Lymphocytes (%) (Auto) (test code = 736-9) 36.3 18.0-39.1 [facility] BrookAutformerly [facility] blood monocyte count as percentage of total aenlmlqceo1917-66-10 09:10:00* Test Item Value Reference Range Interpretation Comments Monocytes (%) (Auto) (test code = 5905-5) 1.3 4.4-11.3 [facility] BrookAutomated blood eosinophil count as percentage of total iyldyorlld4254-81-25 09:10:00* Test Item Value Reference Range Interpretation Comments Eosinophils (%) (Auto) (test code = 713-8) 0.0 0.0-6.0 [facility] BrookAutomated blood basophil count as percentage of total epgiadktsk6159-98-69 09:10:00* Test Item Value Reference Range Interpretation Comments Basophils (%) (Auto) (test code = 706-2) 0.1 0.0-1.0 [facility] BrookFluoroscopic procedure less than one hour zejfsefg2304-16-93 09:10:00* Test Item Value Reference Range Interpretation Comments IM GRANULOCYTES % (test code = IM GRANULOCYTES %) 0.3 0.0- 1.0 [facility] BrookAutomated blood neutrophil count 2019-05-29 09:10:00* Test Item Value Reference Range Interpretation Comments Neutrophils # (Auto) (test code = 751-8) 8.8 2.1-6.9 [facility] BrookBlood lymphocytes count (number/volume) 2019-05-29 09:10:00* Test Item Value Reference Range Interpretation Comments Lymphocytes # (Auto) (test code = 25985-5) 5.1 1.0-3.2 [facility] BrookBlowatonna clinic monocytes automated count (number/volume)2019-05-29 09:10:00* Test Item Value Reference Range Interpretation Comments Monocytes # (Auto) (test code = 742-7) 0.2 0.2-0.8 [facility] BrookAutomated blood eosinophil count 2019-05-29 09:10:00* Test Item Value Reference Range Interpretation Comments Eosinophils # (Auto) (test code = 711-2) 0.0 0.0-0.4 [facility] BrookAutomated blood basophil count (count/volume)2019-05-29 09:10:00* Test Item Value Reference Range Interpretation Comments Basophils # (Auto) (test code = 704-7) 0.0 0.0-0.1 [facility] BrookFluoroscopic procedure less than one hour awvvhkvp1336-68-54 09:10:00* Test Item Value Reference Range Interpretation Comments Absolute Immature Granulocyte (auto (mojgan t code = Absolute Immature Granulocyte (auto) 0.04 0-0.1 [facility] BrookFluoroscopic procedure less than one hour jabgejux3041-68-74 09:10:00* Test Item Value Reference Range Interpretation Comments Differential Total Cells Counted (test code = Ying tial Total Cells Counted) 100 [facility] BrookManual blood neutrophils/100 leukocytes 2019-05-29 09:10:00* Test Item Value Reference Range Interpretation Comments Neutrophils % (Manual) (test code = 42591-3) 61 40-74 [facility]100 leukocytes 2019-05-29 09:10:00* Test Item Value Reference Range Interpretation Comments Lymphocytes % (Manual) (test code = 737-7) 37 19-48 [facility] blood monocytes/100 leukocytes 2019-05-29 09:10:00* Test Item Value Reference Range Interpretation Comments Monocytes % (Manual) (test code = 744-3) 2 3.4-9.0 [facility] BrookBlood platelets count by estimate (number/volume)2019-05-29 09:10:00* Test Item Value Reference Range Interpretation Comments Platelet Estimate (test code = 13546-2) ADEQUATE [facility] BrookPlatelet aiqzflgeab7919-74-61 09:10:00* Test Item Value Reference Range Interpretation Comments Platelet Morphology Comment (test code = 60819-2) NORMAL [facility] BrookRBC vpgrtslgyy0347-68-74 09:10:00* Test Item Value Reference Range Interpretation Comments Red Cell Morphology Comment (test code = 6742-1) [facility] sodium measurement (moles/volume)2019-05-29 09:10:00* Test Item Value Reference Range Interpretation Comments Sodium Level (test code = 2951-2) 131 136-145 [facility] or plasma potassium measurement (moles/volume)2019-05-29 09:10:00* Test Item Value Reference Range Interpretation Comments Potassium Level (test code = 2823-3) 5.1 3.5-5.1 [facility] or plasma chloride measurement (moles/volume)2019-05-29 09:10:00* Test Item Value Reference Range Interpretation Comments Chloride Level (test code = 2075-0) 91 98-107 [facility] or plasma carbon dioxide, total measurement (moles/volume)2019-05-29 09:10:00* Test Item Value Reference Range Interpretation Comments Carbon Dioxide Level (test code = 2028-9) 20 22-29 [facility] or plasma anion btx4476-78-15 09:10:00* Test Item Value Reference Range Interpretation Comments Anion Gap (test code = 96665-9) 25.1 8-16 [facility] or plasma urea nitrogen measurement (mass/volume)2019-05-29 09:10:00* Test Item Value Reference Range Interpretation Comments Blood Urea Nitrogen (test code = 3094-0) 83 7-26 [facility] plasma creatinine measurement (mass/volume)2019-05-29 09:10:00* Test Item Value Reference Range Interpretation Comments Creatinine (test code = 2160-0) 10.37 0.72-1.25 [facility] or plasma urea nitrogen/creatinine mass xypfq5079-73-99 09:10:00* Test Item Value Reference Range Interpretation Comments BUN/Creatinine Ratio (test code = 3097-3) 8 6-25 [facility] BrookEstimated glomerular filtration rate (GFR) fetpnbrnfkxus0026-54-68 09:10:00* Test Item Value Reference Range Interpretation Comments Estimat Glomerular Filtration Rate (test code = 424733456) 5 >60 Ranges were taken from the National Kidney Disease Education Program and the Aleisha counts [facility] literature.Reference ranges:60 or greater: Chdazg18-18 ( for 3 consecutive months): Chronic kidney disease 15 or less: Kidney failureAdventHealth Rollins BrookGlucose bcvgnaczepp6776-40-35 09:10:00* Test Item Value Reference Range Interpretation Comments Glucose Level (test code = RQN2338) 229 74-118 [facility] or plasma calcium measurement (mass/volume)2019-05-29 09:10:00* Test Item Value Reference Range Interpretation Comments Calcium Level (test code = 00908-9) 9.0 8.4-10.2 [facility] or plasma total bilirubin measurement (mass/volume)2019-05-29 09:10:00* Test Item Value Reference Range Interpretation Comments Total Bilirubin (test code = 1975-2) 0.4 0.2-1.2 [facility] BrookFluoroscopic procedure less than one hour nvmjqfki0932-71-05 09:10:00* Test Item Value Reference Range Interpretation Comments Aspartate Amino Transf (AST/SGOT) (test code = Aspartate Amino Transf (AST/SGOT)) 7 5-34 [facility] or plasma alanine aminotransferase measurement (enzymatic activity/volume)2019-05-29 09:10:00* Test Item Value Reference Range Interpretation Comments Alanine Aminotransferase (ALT/SGPT) (test code = 1742-6) 12 0-55 [facility] or plasma protein measurement (mass/volume)2019-05-29 09:10:00* Test Item Value Reference Range Interpretation Comments Total Protein (test code = 2885-2) 6.9 6.5-8.1 [facility] plasma albumin measurement (mass/volume)2019-05-29 09:10:00* Test Item Value Reference Range Interpretation Comments Albumin (test code = 1751-7) 3.1 3.5-5.0 [facility] BrookPlasma globulin measurement (mass/volume) 2019-05-29 09:10:00* Test Item Value Reference Range Interpretation Comments Globulin (test code = 26910-4) 3.8 2.3-3.5 [facility] plasma albumin/globulin mass trqfu8739-74-29 09:10:00* Test Item Value Reference Range Interpretation Comments Albumin/Globulin Ratio (test code = 1759-0) 0.8 0.8-2.0 [facility] plasma alkaline phosphatase measurement (enzymatic activity/volume)2019-05-29 09:10:00* Test Item Value Reference Range Interpretation Comments Alkaline Phosphatase (test code = 6768-6) 45 40-150 [facility] BrookFluoroscopic procedure less than one hour mlbpnnyo5159-84-50 09:10:00* Test Item Value Reference Range Interpretation Comments Differential Total Cells Counted (test code = Ying matute Total Cells Counted) 100 [facility] blood neutrophils/100 leukocytes 2019-05-29 09:10:00* Test Item Value Reference Range Interpretation Comments Neutrophils % (Manual) (test code = 64946-9) 61 40-74 [facility] blood lymphocytes/100 leukocytes 2019-05-29 09:10:00* Test Item Value Reference Range Interpretation Comments Lymphocytes % (Manual) (test code = 737-7) 37 19-48 [facility] blood monocytes/100 leukocytes 2019-05-29 09:10:00* Test Item Value Reference Range Interpretation Comments Monocytes % (Manual) (test code = 744-3) 2 3.4-9.0 [facility] BrookBlowat[facility] clinic platelets count by estimate (number/volume)2019-05-29 09:10:00* Test Item Value Reference Range Interpretation Comments Platelet Estimate (test code = 23366-5) ADEQUATE [facility] BrookPlatelet pirdkwtmtt0109-39-96 09:10:00* Test Item Value Reference Range Interpretation Comments Platelet Morphology Comment (test code = 84185-0) NORMAL [facility] BrookRBC iiwhvoquwt6781-44-39 09:10:00* Test Item Value Reference Range Interpretation Comments Red Cell Morphology Comment (test code = 6742-1) NORMAL [facility] BrookEosinophils % (Manual)2019-05-26 09:28:00 * Test Item Value Reference Range Interpretation Comments Eosinophils % (Manual) (test code = 714-6) 1 0-7 [facility] BrookReactive Ochuuetavwx8427-79-83 09:28:00* Test Item Value Reference Range Interpretation Comments Reactive Lymphocytes (test code = 59286-7) 15 [facility] blood eosinophil count as percentage of total xovksnaxku1882-35-37 07:34:00* Test Item Value Reference Range Interpretation Comments Eosinophils % (Manual) (test code = 714-6) 1 0-7 [facility] BrookBlowatonna clinic lymphocytes variant count (number/volume)2019-05-26 07:34:00* Test Item Value Reference Range Interpretation Comments Reactive Lymphocytes (test code = 60829-3) 15 [facility] BrookManselect [facility] eosinophil count as percentage of total pqxffyknpj8331-86-12 07:34:00* Test Item Value Reference Range Interpretation Comments Eosinophils % (Manual) (test code = 714-6) 1 0-7 [facility] lymphocytes variant count (number/volume)2019-05-26 07:34:00* Test Item Value Reference Range Interpretation Comments Reactive Lymphocytes (test code = 18589-3) 15 [facility] lymphocytes variant count (number/volume)2019-05-26 07:34:00* Test Item Value Reference Range Interpretation Comments Reactive Lymphocytes (test code = 91640-6) 15 [facility] lymphocytes variant count (number/volume)2019-05-26 07:34:00* Test Item Value Reference Range Interpretation Comments Reactive Lymphocytes (test code = 52582-0) 15 [facility] lymphocytes variant count (number/volume)2019-05-26 07:34:00* Test Item Value Reference Range Interpretation Comments Reactive Lymphocytes (test code = 16080-3) 15 [facility] Zfkrubj5313-94-69 19:55:00* Test Item Value Reference Range Interpretation Comments Blood Culture (test code = 89650014) NO GROWTH AFTER 5 DAYS, FINAL REPORT [facility] B Surface Antibody, Quant 2019-05-23 07:49:00* Test Item Value Reference Range Interpretation Comments Hepatitis B Surface Antibody, Quant (test code = 5194-6) >1000.0 Immunity>9.9 Status of Immunity Anti-HBs Level Inconsistent with Immunity 0.0 - 9.9Consistent with Immunity >9.9[facility] Be Yfowlbf1690-66-21 07:49:00* Test Item Value Reference Range Interpretation Comments Hepatitis Be Antigen (test code = 43866-8) Negative Negative Performed at: [address] [id number] Director: Gregor Hernandez MD, Phone: [phone] Medical Center Southerum hepatitis B virus surface antibody assay by radioimmunoassay (units/volume)2019-05-22 16:11:00* Test Item Value Reference Range Interpretation Comments Hepatitis B Surface Antibody, Quant (test code = 5194-6) >1000.0 Immunity>9.9 Status of Immunity Anti-HBs Level Inconsistent with Immunity 0.0 - 9.9Consistent with Immunity >9.9[facility] B virus e antigen detection by enzyme yneoktnhdgy5718-82-31 16:11:00* Test Item Value Reference Range Interpretation Comments Hepatitis Be Antigen (test code = 55870-4) Negative Negative Performed at: [address] [id number] Director: Gregor Hernandez MD, Phone: [phone] Medical Center Southerum hepatitis B virus surface antibody assay by radioimmunoassay (units/volume)2019-05-22 16:11:00* Test Item Value Reference Range Interpretation Comments Hepatitis B Surface Antibody, Quant (test code = 5194-6) >1000.0 Immunity>9.9 Status of Immunity Anti-HBs Level Inconsistent with Immunity 0.0 - 9.9Consistent with Immunity >9.9[facility]erum hepatitis B virus e antigen detection by enzyme tntcsesgutb5348-21-56 16:11:00* Test Item Value Reference Range Interpretation Comments Hepatitis Be Antigen (test code = 53184-3) Negative Negative Performed at: [address] [id number] Director: Gregor Hernandez MD, Phone: [phone] Medical Center Southerum hepatitis B virus e antigen detection by enzyme immunoassay 2019-05-22 16:11:00* Test Item Value Reference Range Interpretation Comments Hepatitis Be Antigen (test code = 36463-7) Negative Negative Performed at: [facility] [id number] Director: Gregor Hernandez MD, Phone: [phone] Medical Center Southerum hepatitis B virus e antigen detection by enzyme immunoassay 2019-05-22 16:11:00* Test Item Value Reference Range Interpretation Comments Hepatitis Be Antigen (test code = 68154-7) Negative Negative Performed at: - [facility] [id number] Director: Gregor Hernandez MD, Phone: [phone] Rollins BrookCT ORBIT/SELLA/PF AZ1386-41-03 20:26:00 [place] [address] Patient Name: CHARLOTTE LANDA MR #: [id number] : 1940 Age/Sex: 78/M Req #: [id number] Adm Physician: Ordered by: SHIELA DASH MD [...] 33 COPY TO: SHIELA DASH MD Blood ytlfijq0825-98-38 19:40:00* Test Item Value Reference Range Interpretation Comments Blood Culture (test code = 52381691) NO GROWTH AFTER 5 DAYS, [facility] nyplsbo0781-08-44 19:40:00* Test Item Value Reference Range Interpretation Comments Blood Culture (test code = 29544676) NO GROWTH AFTER 5 DAYS, [facility] gelrfnk4879-74-96 19:40:00* Test Item Value Reference Range Interpretation Comments Blood Culture (test code = 10527566) NO GROWTH AFTER 5 DAYS, [facility] ibuhpdn1233-23-82 19:40:00* Test Item Value Reference Range Interpretation Comments Blood Culture (test code = 31349033) NO GROWTH AFTER 5 DAYS, [facility] wzkhirc2339-78-97 19:40:00* Test Item Value Reference Range Interpretation Comments Blood Culture (test code = 00311008) NO GROWTH AFTER 5 DAYS, FINAL REPORT [facility] BrookBedside Elywhcs3250-55-30 15:52:00* Test Item Value Reference Range Interpretation Comments Bedside Glucose (test code = 44222-8) 130 70-120 H Meter ID: [id number] Rollins BrookDifferential Total Cells Shfxmmn9392-40-52 08:45:00* Test Item Value Reference Range Interpretation Comments Differential Total Cells Counted (test code = Ying tial Total Cells Counted) 100 [facility] BrookNeutrophils % (Manual)2019-01-06 08:45:00 * Test Item Value Reference Range Interpretation Comments Neutrophils % (Manual) (test code = 95711-9) 12 40-74 L [facility] BrookLymphocytes % (Manual)2019-01-06 08:45:00 * Test Item Value Reference Range Interpretation Comments Lymphocytes % (Manual) (test code = 737-7) 80 19-48 H [facility] BrookMonocytes % (Manual)2019-01-06 08:45:00* Test Item Value Reference Range Interpretation Comments Monocytes % (Manual) (test code = 744-3) 6 3.4-9.0 [facility] Cells %2019-01-06 08:45:00* Test Item Value Reference Range Interpretation Comments Blast Cells % (test code = 52952-7) 2 [facility] BrookPlatelet Drlieyoq2481-13-92 08:45:00* Test Item Value Reference Range Interpretation Comments Platelet Estimate (test code = 70667-6) SLIGHTLY DECREASED [facility] BrookPlatelet Morphology Ifnklnp6269-41-81 08:45:00* Test Item Value Reference Range Interpretation Comments Platelet Morphology Comment (test code = 74352-8) NORMAL [facility] BrookPolychromasia2019-06-07 08:45:00* Test Item Value Reference Range Interpretation Comments Polychromasia (test code = 64072-5) FEW [facility] BrookHypochromasia2019-06-07 08:45:00* Test Item Value Reference Range Interpretation Comments Hypochromasia (test code = 728-6) MODERATE [facility] BrookRed Cell Morphology Dmcrekn6376-50-70 08:45:00* Test Item Value Reference Range Interpretation Comments Red Cell Morphology Comment (test code = 6742-1) NORMAL [facility] BrookBlast Cells %2019-01-06 08:45:00* Test Item Value Reference Range Interpretation Comments Blast Cells % (test code = 89732-1) 2 [facility] BrookPolychromasia2019-06-07 08:45:00* Test Item Value Reference Range Interpretation Comments Polychromasia (test code = 76475-4) FEW [facility] BrookHypochromasia2019-06-07 08:45:00* Test Item Value Reference Range Interpretation Comments Hypochromasia (test code = 728-6) [facility]odium Fqqys9802-23-19 05:43:00* Test Item Value Reference Range Interpretation Comments Sodium Level (test code = 2951-2) 138 136-145 [facility] BrookPotassium Bnckz1897-70-67 05:43:00* Test Item Value Reference Range Interpretation Comments Potassium Level (test code = 2823-3) 4.1 3.5-5.1 [facility] BrookChloride Aywmq4581-80-83 05:43:00* Test Item Value Reference Range Interpretation Comments Chloride Level (test code = 2075-0) 100 98-107 [facility] BrookCarbon Dioxide Jtmrj7853-41-67 05:43:00* Test Item Value Reference Range Interpretation Comments Carbon Dioxide Level (test code = 2028-9) 26 22-29 [facility] BrookAnion Ant0588-52-70 05:43:00* Test Item Value Reference Range Interpretation Comments Anion Gap (test code = 82860-7) 16.1 8-16 H [facility] BrookBlood Urea Brcswkyi1149-09-58 05:43:00* Test Item Value Reference Range Interpretation Comments Blood Urea Nitrogen (test code = 3094-0) 50 7-26 H [facility] BrookCreatinine2019-06-07 05:43:00* Test Item Value Reference Range Interpretation Comments Creatinine (test code = 2160-0) 6.74 0.72-1.25 H [facility] BrookBUN/Creatinine Tzeeb1916-84-46 05:43:00* Test Item Value Reference Range Interpretation Comments BUN/Creatinine Ratio (test code = 3097-3) 7 6-25 [facility] BrookEstimat Glomerular Filtration Rate 2019-01-06 05:43:00* Test Item Value Reference Range Interpretation Comments Estimat Glomerular Filtration Rate (test code = 060641575) 8 >60 L Ranges were taken from the National Kidney Disease Education Program and the [facility] literature.Reference ranges:60 or greater: Gdksho33-82 ( for 3 consecutive months): Chronic kidney disease 15 or less: Kidney failureAdventHealth Rollins BrookGlucose Mhpqv1159-55-77 05:43:00* Test Item Value Reference Range Interpretation Comments Glucose Level (test code = IMD5420) 105 74-118 [facility] BrookCalcium Qlang3139-95-57 05:43:00* Test Item Value Reference Range Interpretation Comments Calcium Level (test code = 61064-3) 8.0 8.4-10.2 L [facility] BrookMagnesium Lizmf9380-33-81 05:43:00* Test Item Value Reference Range Interpretation Comments Magnesium Level (test code = 15989-5) 2.1 1.3-2.1 [facility] BrookMagnesium Dngtc1178-52-68 05:43:00* Test Item Value Reference Range Interpretation Comments Magnesium Level (test code = 36907-0) 2.1 1.3-2.1 [facility] BrookWhite Blood Blmia8254-02-04 05:04:00* Test Item Value Reference Range Interpretation Comments White Blood Count (test code = 6690-2) 25.19 4.8-10.8 H [facility] BrookRed Blood Cvjjn5631-42-78 05:04:00* Test Item Value Reference Range Interpretation Comments Red Blood Count (test code = 789-8) 2.59 4.3-5.7 L [facility] BrookHemoglobin2019-06-07 05:04:00* Test Item Value Reference Range Interpretation Comments Hemoglobin (test code = 86345-6) 7.5 14.0-18.0 L [facility] BrookHematocrit2019-06-07 05:04:00* Test Item Value Reference Range Interpretation Comments Hematocrit (test code = 4544-3) 23.2 38.2-49.6 L [facility] BrookMean Corpuscular Oykmwo5997-39-88 05:04:00* Test Item Value Reference Range Interpretation Comments Mean Corpuscular Volume (test code = 787-2) 89.6 81-99 [facility] BrookMean Corpuscular Dhiadckgem4321-35-90 05:04:00* Test Item Value Reference Range Interpretation Comments Mean Corpuscular Hemoglobin (test code = 785-6) 29.0 28-32 [facility] Concent 2019-01-06 05:04:00* Test Item Value Reference Range Interpretation Comments Mean Corpuscular Hemoglobin Concent (test code = 786-4) 32.3 31-35 [facility] BrookRed Cell Distribution Qbqzy1251-89-69 05:04:00* Test Item Value Reference Range Interpretation Comments Red Cell Distribution Width (test code = 61762-2) 20.9 11.7 -14.4 H [facility] BrookPlatelet Arxpw2323-04-64 05:04:00* Test Item Value Reference Range Interpretation Comments Platelet Count (test code = 777-3) 126 140-360 L [facility] BrookNeutrophils (%) (Auto)2019-01-06 05:04:00 * Test Item Value Reference Range Interpretation Comments Neutrophils (%) (Auto) (test code = 45574-8) 17.6 38.7-80.0 L [facility] BrookLymphocytes (%) (Auto)2019-01-06 05:04:00 * Test Item Value Reference Range Interpretation Comments Lymphocytes (%) (Auto) (test code = 736-9) 75.4 18.0-39.1 H [facility] BrookMonocytes (%) (Auto)2019-01-06 05:04:00* Test Item Value Reference Range Interpretation Comments Monocytes (%) (Auto) (test code = 5905-5) 6.5 4.4-11.3 [facility] BrookEosinophils (%) (Auto)2019-01-06 05:04:00 * Test Item Value Reference Range Interpretation Comments Eosinophils (%) (Auto) (test code = 713-8) 0.1 0.0-6.0 [facility] BrookBasophils (%) (Auto)2019-01-06 05:04:00* Test Item Value Reference Range Interpretation Comments Basophils (%) (Auto) (test code = 706-2) 0.1 0.0-1.0 [facility] BrookIM GRANULOCYTES %2019-01-06 05:04:00* Test Item Value Reference Range Interpretation Comments IM GRANULOCYTES % (test code = IM GRANULOCYTES %) 0.3 0.0- 1.0 [facility] BrookNeutrophils # (Auto)2019-01-06 05:04:00* Test Item Value Reference Range Interpretation Comments Neutrophils # (Auto) (test code = 751-8) 4.4 2.1-6.9 [facility] BrookLymphocytes # (Auto)2019-01-06 05:04:00* Test Item Value Reference Range Interpretation Comments Lymphocytes # (Auto) (test code = 56811-2) 19.0 1.0-3.2 H [facility] BrookMonocytes # (Auto)2019-01-06 05:04:00* Test Item Value Reference Range Interpretation Comments Monocytes # (Auto) (test code = 742-7) 1.6 0.2-0.8 H [facility] BrookEosinophils # (Auto)2019-01-06 05:04:00* Test Item Value Reference Range Interpretation Comments Eosinophils # (Auto) (test code = 711-2) 0.0 0.0-0.4 [facility] BrookBasophils # (Auto)2019-01-06 05:04:00* Test Item Value Reference Range Interpretation Comments Basophils # (Auto) (test code = 704-7) 0.0 0.0-0.1 [facility] BrookAbsolute Immature Granulocyte (auto 2019-01-06 05:04:00* Test Item Value Reference Range Interpretation Comments Absolute Immature Granulocyte (auto (mojgan t code = Absolute Immature Granulocyte (auto) 0.07 0-0.1 [facility] BrookPoikilocytosis2019-06-06 07:23:00* Test Item Value Reference Range Interpretation Comments Poikilocytosis (test code = 779-9) SLIGHT [facility] BrookAnisocytosis2019-06-06 07:23:00* Test Item Value Reference Range Interpretation Comments Anisocytosis (test code = 702-1) [facility]* Test Item Value Reference Range Interpretation Comments Poikilocytosis (test code = 779-9) [facility]* Test Item Value Reference Range Interpretation Comments Anisocytosis (test code = 702-1) [facility]Hep[facility] Surface Antibody, Quant 2019-01-05 05:21:00* Test Item Value Reference Range Interpretation Comments Hepatitis B Surface Antibody, Quant (test code = 5194-6) >1000.0 Immunity>9.9 Status of Immunity Anti-HBs Level Inconsistent with Immunity 0.0 - 9.9Consistent with Immunity >9.9[facility] Surface Rfmxqip4887-05-97 05:21:00* Test Item Value Reference Range Interpretation Comments Hepatitis B Surface Antigen (test code = 5196-1) Negative Negat tabatha [facility] B Core IgM Rnbfaugy3055-91-48 05:21:00* Test Item Value Reference Range Interpretation Comments Hepatitis B Core IgM Antibody (test code = 27042-8) Negative Ne gative Performed at: - Lab[address] [id number] Director: Gregor Hernandez MD, Phone: [phone] [facility] B Surface Fzufudb7683-42-77 05:21:00* Test Item Value Reference Range Interpretation Comments Hepatitis B Surface Antigen (test code = 5196-1) Negative Negat tabatha [facility] B Core IgM Hsbvuffh5420-40-06 05:21:00* Test Item Value Reference Range Interpretation Comments Hepatitis B Core IgM Antibody (test code = 97018-5) Negative Ne gative Performed at: - [address] [id number] Director: Gregor Hernandez MD, Phone: [phone] Rollins BrookArterial Blood nF8260-22-72 09:42:00* Test Item Value Reference Range Interpretation Comments Arterial Blood pH (test code = 2744-1) 7.59 7.31-7.41 H [facility] BrookArterial Blood Partial Pressure CO2 2019-01-04 09:42:00* Test Item Value Reference Range Interpretation Comments Arterial Blood Partial Pressure CO2 (test code = 2018-8) 27 41-51 L [facility] BrookArterial Blood Partial Pressure O2 2019-01-04 09:42:00* Test Item Value Reference Range Interpretation Comments Arterial Blood Partial Pressure O2 (test code = 2018-8) 122 80-105 H [facility] BrookArterial Blood RYP61181-95-46 09:42:00* Test Item Value Reference Range Interpretation Comments Arterial Blood HCO3 (test code = 1960-4) 26 23-28 [facility] BrookArterial Blood Base Otdcjn9096-71-97 09:42:00* Test Item Value Reference Range Interpretation Comments Arterial Blood Base Excess (test code = 1925-7) 4.0 -2-3 H [facility] BrookArterial Blood Oxygen Saturation 2019-01-04 09:42:00* Test Item Value Reference Range Interpretation Comments Arterial Blood Oxygen Saturation (test code = 2708-6) 99.0 95-98 H [facility] BrookFiO22019-06-05 09:42:00* Test Item Value Reference Range Interpretation Comments FiO2 (test code = FiO2) 40 PT ON PS 8,PEEP 5,40%[facility] BrookArterial Blood pH 2019-01-04 09:42:00* Test Item Value Reference Range Interpretation Comments Arterial Blood pH (test code = 2744-1) 7.59 7.31-7.41 H [facility] BrookArterial Blood Partial Pressure CO2 2019-01-04 09:42:00* Test Item Value Reference Range Interpretation Comments Arterial Blood Partial Pressure CO2 (test code = 2019-03) 27 41-51 L [facility] BrookArterial Blood Partial Pressure O2 2019-01-04 09:42:00* Test Item Value Reference Range Interpretation Comments Arterial Blood Partial Pressure O2 (test code = 2019-03) 122 80-105 H [facility] BrookArterial Blood CHJ59778-72-58 09:42:00* Test Item Value Reference Range Interpretation Comments Arterial Blood HCO3 (test code = 1960-4) 26 23-28 [facility] BrookArterial Blood Base Bepcgz5791-23-14 09:42:00* Test Item Value Reference Range Interpretation Comments Arterial Blood Base Excess (test code = 1925-7) 4.0 -2-3 H [facility] BrookArterial Blood Oxygen Saturation 2019-01-04 09:42:00* Test Item Value Reference Range Interpretation Comments Arterial Blood Oxygen Saturation (test code = 2708-6) 99.0 95-98 H [facility] BrookFiO22019-06-05 09:42:00* Test Item Value Reference Range Interpretation Comments FiO2 (test code = FiO2) 40 PT ON PS 8,PEEP 5,40%[facility] BrookTotal Bilirubin 2019-01-04 05:52:00* Test Item Value Reference Range Interpretation Comments Total Bilirubin (test code = 1975-2) 0.3 0.2-1.2 [facility] BrookAspartate Amino Transf (AST/SGOT) 2019-01-04 05:52:00* Test Item Value Reference Range Interpretation Comments Aspartate Amino Transf (AST/SGOT) (test code = Aspartate Amino Transf (AST/SGOT)) 6 5-34 [facility] BrookAlanine Aminotransferase (ALT/SGPT) 2019-01-04 05:52:00* Test Item Value Reference Range Interpretation Comments Alanine Aminotransferase (ALT/SGPT) (test code = 1742-6) 11 0-55 [facility] BrookTotal Ytezluq8103-73-94 05:52:00* Test Item Value Reference Range Interpretation Comments Total Protein (test code = 2885-2) 6.2 6.5-8.1 L [facility] BrookAlbumin2019-06-05 05:52:00* Test Item Value Reference Range Interpretation Comments Albumin (test code = 1751-7) 2.9 3.5-5.0 L [facility] BrookGlobulin2019-06-05 05:52:00* Test Item Value Reference Range Interpretation Comments Globulin (test code = 83028-5) 3.3 2.3-3.5 [facility] BrookAlbumin/Globulin Wsivq0121-34-23 05:52:00 * Test Item Value Reference Range Interpretation Comments Albumin/Globulin Ratio (test code = 1759-0) 0.9 0.8-2.0 [facility] BrookAlkaline Osagzavzaaq5627-44-25 05:52:00* Test Item Value Reference Range Interpretation Comments Alkaline Phosphatase (test code = 6768-6) 48 40-150 [facility] BrookCHEST SINGLE (PORTABLE)2019-01-04 05:43:00 [facility] [address] [address] Patient Name: CHARLOTTE LANDA MR #: [id number] : 1940 Age/Sex: 78/M Req #: [id number] Adm Physician: STEVEN HAWKINS MD Ordered by: SHIELA DASH MD Report #: [id number] Location: ICU Room/Bed: ICU [facility] Procedure: 1 DX/CHEST SINGLE (PORTABLE) Exam Date: 01/04/19 [...] enlarged. BONES AND SOFT TISSUES: No ac circle osseous lesion. Soft tissues are unremarkable. UPPER ABDOMEN: No lauro e air under the diaphragm. IMPRESSION: Enlarged cardiomediastinal si lhouette and central vascular congestion, accentuated by low lung volumes. Signed by: Dr. Gisell Esqueda MD on 01/04/2019 5:44 AM Dictated By: YULIYA ESQUEDA MD 3 Tra nscribed By: HARRIS on 01/04/19543 COPY TO: SHIELA DASH MD CHEST SINGLE (PORTABLE)2019-01-03 06:49:00 [address] [address] Patient Name: CHARLOTTE LANDA MR #: [id number] : 1940 Age/Sex: 78/M Req #: [id number] Adm Physician: Ordered by: SHIELA DASH MD Report #: [id number] Location: ER Room/Bed: Procedure: DX/CHEST SINGLE (PORTABLE) Exam Date: 01/03/19 Exa m Time: 611 REPORT STATUS: Signed EXAMINATION: CHEST SINGLE (PORTABLE) INDICATION: post intu bation [id number] Y COMPARISON: Same day at 4:57 AM [...] vascular congest ion. Signed by: Dr. Gisell Esqueda MD on 01/03/2019 6:51 AM Dictate d By: GISELL ESQUEDA MD 0 651 Transcribed By: HARRIS on 01/03/19 0651 COPY TO: ROBERT DASH MD Creatine Kinase ZM0994-21-11 05:48:00* Test Item Value Reference Range Interpretation Comments Creatine Kinase MB (test code = 32982-1) 1.70 0-5.0 [facility] B2831-54-77 05:48:00* Test Item Value Reference Range Interpretation Comments Troponin I (test code = AGD0448) 0.011 0-0.300 [facility] BrookCreatine Kinase YW6140-92-22 05:48:00* Test Item Value Reference Range Interpretation Comments Creatine Kinase MB (test code = 09799-5) 1.70 0-5.0 [facility] BrookTrsaint [facility] hospitalnin A5103-08-02 05:48:00* Test Item Value Reference Range Interpretation Comments Troponin I (test code = IVP5046) 0.011 0-0.300 [facility] BrookCreatine Odgrgc0417-70-55 05:41:00* Test Item Value Reference Range Interpretation Comments Creatine Kinase (test code = 2157-6) 77 30-200 [facility] BrookCreatine Tgjpzp3608-34-54 05:41:00* Test Item Value Reference Range Interpretation Comments Creatine Kinase (test code = 2157-6) 77 30-200 [facility] BrookProthrombin Hoyi7266-75-11 05:29:00* Test Item Value Reference Range Interpretation Comments Prothrombin Time (test code = 5902-2) 12.8 11.9-14.5 [facility] BrookProthromb Time International Ratio 2019-01-03 05:29:00* Test Item Value Reference Range Interpretation Comments Prothromb Time International Ratio (test code = 6301-6) 0.92 Oral Anticoagulant Therapy INR Values:1. Low Intensity Therapy 1.5 - 2.02 . Moderate Intensity Therapy 2.0 - 3.03. High Intensity Therapy(1) 2.5 - 3. 54. High Intensity Therapy(2) 3.0 - 4.05. Panic Value INR > 5.0 [facility] BrookActivated Partial Thromboplast Time 2019-01-03 05:29:00* Test Item Value Reference Range Interpretation Comments Activated Partial Thromboplast Time (test code = 22341-5) 22.5 23.8-35.5 L [facility] BrookProthrombin Tvfi1151-58-96 05:29:00* Test Item Value Reference Range Interpretation Comments Prothrombin Time (test code = 5902-2) 12.8 11.9-14.5 [facility] BrookProthromb Time International Ratio 2019-01-03 05:29:00* Test Item Value Reference Range Interpretation Comments Prothromb Time International Ratio (test code = 6301-6) 0.92 Oral Anticoagulant Therapy INR Values:1. Low Intensity Therapy 1.5 - 2.02 . Moderate Intensity Therapy 2.0 - 3.03. High Intensity Therapy(1) 2.5 - 3. 54. High Intensity Therapy(2) 3.0 - 4.05. Panic Value INR > 5.0 [facility] BrookActivated Partial Thromboplast Time 2019-01-03 05:29:00* Test Item Value Reference Range Interpretation Comments Activated Partial Thromboplast Time (test code = 95880-6) 22.5 23.8-35.5 L [facility] BrookCHEST SINGLE (PORTABLE)2019-01-03 05:04:00 [address] [place], [place] [address] Patient Name: CHARLOTTE LANDA MR #: [id number] : 1940 Age/Sex: 78/M Req #: [id number] Adm Physician: Ordered by: SHIELA DASH MD Report #: [id number] Location: ER Room/Bed: Procedure: [id number] DX/CHEST [...] on 01/03/2019 5:18 AM Dictated By: GISELL ESQUEDA MD 7 Transcribed By: HARRIS on 517 COPY TO: SHIELA DASH MD CT CHEST L0655-56-61 12:28:00 [facility] [address] [place], [place] [address] Patient Name: CHARLOTTE LANDA MR #: [id number] : 1940 Age/Sex: 78/M Req #: [id number] Adm Physician: Ordered by: JORDYN IRENE MD Report #: [id number] Location: CT Room/Bed: Procedure: [id number] CT/CT C HEST W Exam Date: 01/02/19 [...] COPY TO: JORDYN YAN MD CT ABDOMEN S0650-52-13 12:28:00 [place] [address] Patient Name: CHARLOTTE LANDA MR #: [id number] : 1940 Age/Sex: 78/M Req #: [id number] Adm Physician: Ordered by: JORDYN IRENE MD Report #: [id number] Location: CT Room/Bed: Procedure: [id number] CT/CT A BDOMEN W Exam Date: 01/02/19 [...] 1256 COPY TO: JORDYN IRENE MD Urine Cramp0317-96-26 23:13:00* Test Item Value Reference Range Interpretation Comments Urine Color (test code = 5778-6) YELLOW YELLOW [facility] BrookUrine Jhgovah3202-75-13 23:13:00* Test Item Value Reference Range Interpretation Comments Urine Clarity (test code = 96929-3) CLEAR CLEAR [facility] BrookUrine Specific Wahyqlm5216-99-40 23:13:00 * Test Item Value Reference Range Interpretation Comments Urine Specific [place] (test code = 5811-5) 1.015 1.010-1.02 5 [facility] BrookUrine jA8704-64-67 23:13:00* Test Item Value Reference Range Interpretation Comments Urine pH (test code = 93630-0) 8 5-7 H [facility] BrookUrine Leukocyte Zvsdirta2551-84-74 23:13:00* Test Item Value Reference Range Interpretation Comments Urine Leukocyte Esterase (test code = 5799-2) NEGATIVE NEGATIVE [facility] BrookUrine Kdcfkyk3243-24-81 23:13:00* Test Item Value Reference Range Interpretation Comments Urine Nitrite (test code = 01498-7) NEGATIVE NEGATIVE [facility] BrookUrine Mqxzrrb0074-75-04 23:13:00* Test Item Value Reference Range Interpretation Comments Urine Protein (test code = 5804-0) 2+ NEGATIVE H [facility] BrookUrine Glucose (UA)2018-01-31 23:13:00* Test Item Value Reference Range Interpretation Comments Urine Glucose (UA) (test code = 2349-9) 3+ NEGATIVE H [facility] BrookUrine Qszhbjt6365-35-51 23:13:00* Test Item Value Reference Range Interpretation Comments Urine Ketones (test code = 69887-2) NEGATIVE NEGATIVE [facility] BrookUrine Bxdzuvqdaohm5993-64-74 23:13:00* Test Item Value Reference Range Interpretation Comments Urine Urobilinogen (test code = 89331-4) 0.2 0.2-1 [facility] BrookUrine Fesoyriea4143-36-65 23:13:00* Test Item Value Reference Range Interpretation Comments Urine Bilirubin (test code = 1978-6) NEGATIVE NEGATIVE [facility] BrookUrine Wjwgw5853-05-02 23:13:00* Test Item Value Reference Range Interpretation Comments Urine Blood (test code = 09865-8) 1+ NEGATIVE H [facility] BrookUrine HKR0022-35-36 23:13:00* Test Item Value Reference Range Interpretation Comments Urine WBC (test code = 5821-4) 11-20 0-5 H [facility] BrookUrine DHK8974-79-93 23:13:00* Test Item Value Reference Range Interpretation Comments Urine RBC (test code = 96847-9) 6-10 0-5 H [facility] BrookUrine Cjrxsdkt3020-50-09 23:13:00* Test Item Value Reference Range Interpretation Comments Urine Bacteria (test code = 89763-2) RARE NONE [facility] BrookUrine Epithelial Ppvrv5127-79-27 23:13:00 * Test Item Value Reference Range Interpretation Comments Urine Epithelial Cells (test code = 10813-0) RARE NONE [facility] BrookUrine Lsnbo6648-11-86 23:13:00* Test Item Value Reference Range Interpretation Comments Urine Mucus (test code = 8247-9) RARE RARE [facility] BrookCHEST 2 HSYHD4551-94-68 22:56:00 [address] [place] [address] Patient Name: CHARLOTTE LANDA MR #: [id number] : Age/Sex: 77/M Req #: [id number] Adm Physician: Ordered by: TALIA BIRMINGHAM MD Report #: [id number] Location: ER Room/Bed: Procedure: [id number] DX/CHEST 2 VIEWS Exam Date: Exam Time: [...] COPY TO: TALIA BIRMINGHAM MD Creatine Kinase KY8797-44-73 22:09:00* Test Item Value Reference Range Interpretation Comments Creatine Kinase MB (test code = 63488-5) 1.50 0-5.0 [facility] BrookTroponin C6456-43-35 22:09:00* Test Item Value Reference Range Interpretation Comments Troponin I (test code = WTD5188) -0.001 0-0.300 [facility] Wzsnp1029-53-71 22:01:00* Test Item Value Reference Range Interpretation Comments Sodium Level (test code = 2951-2) 138 136-145 [facility] BrookPotassium Ujaaw3996-42-00 22:01:00* Test Item Value Reference Range Interpretation Comments Potassium Level (test code = 2823-3) 4.3 3.5-5.1 [facility] BrookChloride Ulsdo3237-81-18 22:01:00* Test Item Value Reference Range Interpretation Comments Chloride Level (test code = 2075-0) 99 98-107 [facility] BrookCarbon Dioxide Gnxkz6613-45-83 22:01:00* Test Item Value Reference Range Interpretation Comments Carbon Dioxide Level (test code = 2028-9) 24 22-29 [facility] BrookAnion Cdb9449-83-96 22:01:00* Test Item Value Reference Range Interpretation Comments Anion Gap (test code = 69243-6) 19.3 8-16 H [facility] BrookBlood Urea Gsgfsuwg4540-88-93 22:01:00* Test Item Value Reference Range Interpretation Comments Blood Urea Nitrogen (test code = 3094-0) 50 7-26 H [facility] BrookCreatinine2018-07-02 22:01:00* Test Item Value Reference Range Interpretation Comments Creatinine (test code = 2160-0) 9.66 0.72-1.25 H [facility] BrookBUN/Creatinine Bktfz9449-30-52 22:01:00* Test Item Value Reference Range Interpretation Comments BUN/Creatinine Ratio (test code = 3097-3) 5 6-25 L [facility] BrookEstimat Glomerular Filtration Rate 2018-01-31 22:01:00* Test Item Value Reference Range Interpretation Comments Estimat Glomerular Filtration Rate (test code = 37612-0) 5 >60 L Ranges were taken from the National Kidney Disease Education Program and the [facility] literature.Reference ranges:60 or greater: Mwwgaz88-09 ( for 3 consecutive months): Chronic kidney disease 15 or less: Kidney failureAdventHealth Rollins BrookGlucose Bixjj8987-64-67 22:01:00* Test Item Value Reference Range Interpretation Comments Glucose Level (test code = OFT1915) 138 74-118 H [facility] BrookCalcium Qwavz4524-87-50 22:01:00* Test Item Value Reference Range Interpretation Comments Calcium Level (test code = 96141-3) 8.7 8.4-10.2 [facility] BrookMagnesium Tftgb4764-26-40 22:01:00* Test Item Value Reference Range Interpretation Comments Magnesium Level (test code = 91951-4) 2.0 1.3-2.1 [facility] BrookTotal Xuzqgcfbu9119-09-89 22:01:00* Test Item Value Reference Range Interpretation Comments Total Bilirubin (test code = 1975-2) 0.5 0.2-1.2 [facility] BrookAspartate Amino Transf (AST/SGOT) 2018-01-31 22:01:00* Test Item Value Reference Range Interpretation Comments Aspartate Amino Transf (AST/SGOT) (test code = Aspartate Amino Transf (AST/SGOT)) 13 5-34 [facility] BrookAlanine Aminotransferase (ALT/SGPT) 2018-01-31 22:01:00* Test Item Value Reference Range Interpretation Comments Alanine Aminotransferase (ALT/SGPT) (test code = 1742-6) 45 0-55 [facility] BrookTotal Pyqtrmy0206-86-23 22:01:00* Test Item Value Reference Range Interpretation Comments Total Protein (test code = 2885-2) 7.6 6.5-8.1 [facility] BrookAlbumin2018-07-02 22:01:00* Test Item Value Reference Range Interpretation Comments Albumin (test code = 1751-7) 3.5 3.5-5.0 [facility] BrookGlobulin2018-07-02 22:01:00* Test Item Value Reference Range Interpretation Comments Globulin (test code = 14730-1) 4.1 2.3-3.5 H [facility] BrookAlbumin/Globulin Grrkr9057-88-30 22:01:00 * Test Item Value Reference Range Interpretation Comments Albumin/Globulin Ratio (test code = 1759-0) 0.9 0.8-2.0 [facility] BrookAlkaline Nvqqxecsdok0244-29-25 22:01:00* Test Item Value Reference Range Interpretation Comments Alkaline Phosphatase (test code = 6768-6) 72 40-150 [facility] BrookCreatine Mymite9023-77-92 22:01:00* Test Item Value Reference Range Interpretation Comments Creatine Kinase (test code = 2157-6) 75 30-200 [facility] BrookProthrombin Jbwb5113-18-45 21:54:00* Test Item Value Reference Range Interpretation Comments Prothrombin Time (test code = 5902-2) 13.2 11.9-14.5 [facility] BrookProthromb Time International Ratio 2018-01-31 21:54:00* Test Item Value Reference Range Interpretation Comments Prothromb Time International Ratio (test code = 6301-6) 1.08 Oral Anticoagulant Therapy INR Values:1. Low Intensity Therapy 1.5 - 2.02 . Moderate Intensity Therapy 2.0 - 3.03. High Intensity Therapy(1) 2.5 - 3. 54. High Intensity Therapy(2) 3.0 - 4.05. Panic Value INR > 5.0 [facility] BrookActivated Partial Thromboplast Time 2018-01-31 21:54:00* Test Item Value Reference Range Interpretation Comments Activated Partial Thromboplast Time (test code = 92589-0) 24.1 23.8-35.5 [facility] BrookWhite Blood Yygfg4646-13-10 21:49:00* Test Item Value Reference Range Interpretation Comments White Blood Count (test code = 6690-2) 18.64 4.8-10.8 H [facility] BrookRed Blood Vhbbz3424-85-20 21:49:00* Test Item Value Reference Range Interpretation Comments Red Blood Count (test code = 789-8) 3.89 4.3-5.7 L [facility] BrookHemoglobin2018-07-02 21:49:00* Test Item Value Reference Range Interpretation Comments Hemoglobin (test code = 43346-7) 11.2 14.0-18.0 L [facility] BrookHematocrit2018-07-02 21:49:00* Test Item Value Reference Range Interpretation Comments Hematocrit (test code = 4544-3) 34.1 38.2-49.6 L [facility] BrookMean Corpuscular Hseppt9219-86-13 21:49:00* Test Item Value Reference Range Interpretation Comments Mean Corpuscular Volume (test code = 787-2) 87.7 81-99 [facility] BrookMean Corpuscular Rdomkcdlwb7831-29-09 21:49:00* Test Item Value Reference Range Interpretation Comments Mean Corpuscular Hemoglobin (test code = 785-6) 28.8 28-32 [facility] BrookMean Corpuscular Hemoglobin Concent 2018-01-31 21:49:00* Test Item Value Reference Range Interpretation Comments Mean Corpuscular Hemoglobin Concent (test code = 786-4) 32.8 31-35 [facility] BrookRed Cell Distribution Pyyfz2333-54-93 21:49:00* Test Item Value Reference Range Interpretation Comments Red Cell Distribution Width (test code = 61371-7) 18.9 11.7 -14.4 H [facility] BrookPlatelet Sgpce3312-68-97 21:49:00* Test Item Value Reference Range Interpretation Comments Platelet Count (test code = 777-3) 156 140-360 [facility] BrookNeutrophils (%) (Auto)2018-01-31 21:49:00 * Test Item Value Reference Range Interpretation Comments Neutrophils (%) (Auto) (test code = 47276-0) 21.3 38.7-80.0 L [facility] BrookLymphocytes (%) (Auto)2018-01-31 21:49:00 * Test Item Value Reference Range Interpretation Comments Lymphocytes (%) (Auto) (test code = 736-9) 74.5 18.0-39.1 H [facility] BrookMonocytes (%) (Auto)2018-01-31 21:49:00* Test Item Value Reference Range Interpretation Comments Monocytes (%) (Auto) (test code = 5905-5) 2.5 4.4-11.3 L [facility] BrookEosinophils (%) (Auto)2018-01-31 21:49:00 * Test Item Value Reference Range Interpretation Comments Eosinophils (%) (Auto) (test code = 713-8) 1.1 0.0-6.0 [facility] BrookBasophils (%) (Auto)2018-01-31 21:49:00* Test Item Value Reference Range Interpretation Comments Basophils (%) (Auto) (test code = 706-2) 0.3 0.0-1.0 [facility] BrookIM GRANULOCYTES %2018-01-31 21:49:00* Test Item Value Reference Range Interpretation Comments IM GRANULOCYTES % (test code = IM GRANULOCYTES %) 0.3 0.0- 1.0 [facility] BrookNeutrophils # (Auto)2018-01-31 21:49:00* Test Item Value Reference Range Interpretation Comments Neutrophils # (Auto) (test code = 751-8) 4.0 2.1-6.9 [facility] BrookLymphocytes # (Auto)2018-01-31 21:49:00* Test Item Value Reference Range Interpretation Comments Lymphocytes # (Auto) (test code = 23400-4) 13.9 1.0-3.2 H [facility] BrookMonocytes # (Auto)2018-01-31 21:49:00* Test Item Value Reference Range Interpretation Comments Monocytes # (Auto) (test code = 742-7) 0.5 0.2-0.8 [facility] BrookEosinophils # (Auto)2018-01-31 21:49:00* Test Item Value Reference Range Interpretation Comments Eosinophils # (Auto) (test code = 711-2) 0.2 0.0-0.4 [facility] BrookBasophils # (Auto)2018-01-31 21:49:00* Test Item Value Reference Range Interpretation Comments Basophils # (Auto) (test code = 704-7) 0.1 0.0-0.1 [facility] BrookAbsolute Immature Granulocyte (auto 2018-01-31 21:49:00* Test Item Value Reference Range Interpretation Comments Absolute Immature Granulocyte (auto (mojgan t code = Absolute Immature Granulocyte (auto) 0.05 0-0.1 [facility]Bedb[facility] Mdaptpc3886-15-38 21:11:00* Test Item Value Reference Range Interpretation Comments Bedside Glucose (test code = 10551-5) 131 70-120 H Meter ID: [id number] W/[facility] COUNT & AUTO NQHMHGQJPDRY3341-28-31 13:38:00* Test Item Value Reference Range Interpretation [...] 0 /100 WBC 0 -0 BASIC METABOLIC VBWIO4407-94-99 13:02:00* Test Item Value Reference Range Interpretation [...] IS NOT APPLICABLE FOR DIALYSIS PATIENTS. PROTHROMBIN TIME/BLO6920-43-76 12:24:00* Test Item Value Reference Range Interpretation Comments PROTIME (BEAKER) (test code = 759) 15.4 seconds 11.7-14.7 H INR (BEAKER) (test code = 370) 1.2 <=5.9 RECOMMENDED COUMADIN/WARFARIN INR THERAPY RANGESSTANDARD DOSE: 2.0 - 3.0 Inclu eileen: PROPHYLAXIS for venous thrombosis, systemic embolization; TREATMENT for dorothea ous thrombosis and/or pulmonary embolus.HIGH RISK: Target INR is 2.5-3.5 for pat ients with mechanical heart valves.GLUCOSE-STAT HYZ8029-51-35 11:55:00* Test Item Value Reference Range Interpretation Comments GLUCOSE RANDOM (BEAKER) (test code = 652) 114 mg/dL 70-110 H POTASSIUM-STAT LDJ8475-81-51 11:53:00* Test Item Value Reference Range Interpretation Comments POTASSIUM (BEAKER) (test code = 379) 4.3 meq/L 3.6-5.5 HGB/HCT (H&H) - STAT HQF0758-14-18 11:53:00* Test Item Value Reference Range Interpretation Comments HEMOGLOBIN (BEAKER) (test code = 410) 13.5 g/dL 13.0-16.8 HEMATOCRIT (BEAKER) (test code = 411) 40.0 % 40.0-50.0 PN Population(s) Kzcxr8338-94-44 10:12:00* Test Item Value Reference Range Interpretation Comments [facility] Population(s) Gated (test code = 18136-6) Cell Pop ulation Population Analysis [facility] BrookPN Dfduzkznvmqypg2215-59-30 12:22:00* Test Item Value Reference Range Interpretation Comments [facility] Interpretation (test code = 67312-5) Interpretatio n: Peripheral Blood: No evidence of paroxysmal nocturnal hemoglobinuria (PNH). [facility] Slramwm3109-60-41 12:22:00* Test Item Value Reference Range Interpretation Comments [facility] Comment (test code = 66416-1) Comment: At the sen sitivity level of this assay (typically 0.01-0.1%),these results do not support a diagnosis of paroxysmal nocturnal hemoglobinuria (PNH). Correlation with all available clinical,laboratory, and morphologic data is recommended. (sensitivity typically 0.01-0.1%; lower limit of detection dependent on number of cells present and events acquired, typically 90,000+ events acquired) [facility] Iczmyvha9425-60-87 12:22:00* Test Item Value Reference Range Interpretation Comments [facility] Specimen (test code = 63744-1) Specimen: Peripheral Blood [facility] Submitting Fyvjdelrz0262-83-66 12:22:00* Test Item Value Reference Range Interpretation Comments [facility] Submitting Diagnosis (test code = 48452-6) Submitt ed Dx: Evaluation for paroxysmal nocturnal hemoglobinuria (PNH) [facility] Cyfwvusik8174-27-44 12:22:00* Test Item Value Reference Range Interpretation Comments [facility] Viability (test code = 57119-6) Viability: 79% (7AAD exclusion ) [facility] Qrfgegrwysmq9116-97-39 12:22:00* Test Item Value Reference Range Interpretation Comments [facility] Granulocytes (test code = 04053-6) Granulocytes: No GPI- anchor deficiency [facility] Yzxehkbue9739-12-77 12:22:00* Test Item Value Reference Range Interpretation Comments [facility] Monocytes (test code = 04882-8) Monocytes: No GPI-anchor defici ency [facility] Antibodies Iliupwwgj7210-00-11 12:22:00* Test Item Value Reference Range Interpretation Comments [facility] Antibodies Performed (test code = 32713-0) Antibod ies Performed: CD14, CD15, CD24, CD45, CD64, FLAER [facility] Clinical Eoxfeukbkua9259-05-93 12:22:00* Test Item Value Reference Range Interpretation Comments [facility] Clinical Information (test code = 39014-1) Comment : This test was developed and its performance characteristics determined by [facility]. It has not been cleared or approved by the Food and Drug Administration (FDA). The FDA has determined that such clearance or approval is not necessary. Any image(s) that accompany this report is/are a commercial sales representative image(s) only and should not be used to render a diagnosis. Director Review Reviewed By: Venu Valdovinos M.D. [facility] Red Blood Blivl0076-71-93 12:18:00* Test Item Value Reference Range Interpretation Comments [facility] Red Blood Cells (test code = 33689-2) Red Blood Ce lls: SPRCS CD59+ (type I cells, no GPI-deficiency): 99.99% of red blood cells Diminished CD59 (type II cells, partial GPI-deficiency): 0.00% of red blood cells CD59-(type III cells, complete GPI-deficiency): 0.00% of red blood cells [facility] Flow Vbxcvnesw6621-31-76 12:18:00* Test Item Value Reference Range Interpretation Comments [facility] Flow Cytometry (test code = [facility] Flow Cytometry) Di kimmy Review Reviewed By: Johny Joel M.D. [facility] BrookBlood Xhrrkor9146-42-59 05:23:00* Test Item Value Reference Range Interpretation Comments Blood Culture (test code = 19750382) NO GROWTH AFTER 5 DAYS, FINAL REPORT [facility] BrookAlbumin (PEP)2017-08-13 14:57:00* Test Item Value Reference Range Interpretation Comments Albumin (PEP) (test code = Albumin (PEP)) 2.2 2.9-4.4 L [facility] BrookAlpha-1-Xszrgyxzr7730-18-79 14:57:00* Test Item Value Reference Range Interpretation Comments Mzkzr-5-Fhutkwfuo (test code = 2865-4) 0.4 0.0-0.4 [facility] BrookAlpha-2-Owefddzft8197-32-27 14:57:00* Test Item Value Reference Range Interpretation Comments Ybhnw-8-Caaxiopsx (test code = 2868-8) 0.8 0.4-1.0 [facility] BrookImmunofixation Eqkvswznzdkempz5723-55-78 14:57:00* Test Item Value Reference Range Interpretation Comments Immunofixation Electrophoresis (test code = 23782-9) Comment . An apparent normal immunofixation pattern.[facility] BrookBeta Gamma Wkerjjdk7433-61-91 14:57:00* Test Item Value Reference Range Interpretation Comments Beta Gamma Globulin (test code = 2871-2) 0.7 0.7-1.3 [facility] BrookGamma Rxufphjlx3974-36-17 14:57:00* Test Item Value Reference Range Interpretation Comments Gamma Globulins (test code = 2874-6) 0.6 0.4-1.8 [facility] BrookTotal Protein (PEP)2017-08-13 14:57:00* Test Item Value Reference Range Interpretation Comments Total Protein (PEP) (test code = 2885-2) 4.7 6.0-8.5 L [facility] BrookGlobulin2018-01-12 14:57:00* Test Item Value Reference Range Interpretation Comments Globulin (test code = 37313-3) 2.5 2.2-3.9 [facility] BrookKappa Light Chain Xzimalyp5183-02-75 14:57:00* Test Item Value Reference Range Interpretation Comments [place] Light Chain Analysis (test code = 98083-2) 20.8 3.3-1 9.4 H [facility] BrookLambda Light Chain Ugciwcqq5119-60-72 14:57:00* Test Item Value Reference Range Interpretation Comments Lambda Light Chain Analysis (test code = 42847-5) 24.2 5.7- 26.3 [facility] BrookTotl [place]/Lambda Light Chain Ratio 2017-08-13 14:57:00* Test Item Value Reference Range Interpretation Comments Totl [place]/Lambda Light Chain Ratio (test code = 84040-0) 0.86 0.26-1.65 [facility] BrookProtein Electrophoresis Q-Rkrfm1656-64Vqtno8924-58-09 14:57:00* Test Item Value Reference Range Interpretation Comments Protein Electrophoresis M-Juan (test code = 13438-6) Not Observ ed Not Observed [facility] BrookAlbumin/Globulin Ktkku1482-22-63 14:57:00 * Test Item Value Reference Range Interpretation Comments Albumin/Globulin Ratio (test code = 1759-0) 0.9 0.7-1.7 [facility] BrookProtein Electrophoresis Cbkd9741-11-43 14:57:00* Test Item Value Reference Range Interpretation Comments Protein Electrophoresis Note (test code = Protein Electropho resis Note) Comment . Protein electrophoresis scan will follow via computer,mail, or straightener and aligner delivery. [facility] BrookImmunoglobulin G6957-32-63 14:57:00* Test Item Value Reference Range Interpretation Comments Immunoglobulin A (test code = 2458-8) 182 61-437 [facility] BrookImmunoglobulin B7265-30-88 14:57:00* Test Item Value Reference Range Interpretation Comments Immunoglobulin G (test code = 2465-3) 396 678-4952 L [facility] BrookImmunoglobulin L2679-18-27 14:57:00* Test Item Value Reference Range Interpretation Comments Immunoglobulin M (test code = 2472-9) 81 15-143 Performed at: - [facility] [id number] Director: Gregor Hernandez MD, Phone: [phone] at: - [facility] [id number] Director: REKHA Robles MD, [facility] ne: [phone] Rollins BrookDifferential Total Cells Vkqwtci5901-04-88 08:07:00* Test Item Value Reference Range Interpretation Comments Differential Total Cells Counted (test code = Differen tial Total Cells Counted) 100 [facility] BrookNeutrophils % (Manual)2017-08-13 08:07:00 * Test Item Value Reference Range Interpretation Comments Neutrophils % (Manual) (test code = 53882-1) 16 40-74 L [facility] BrookLymphocytes % (Manual)2017-08-13 08:07:00 * Test Item Value Reference Range Interpretation Comments Lymphocytes % (Manual) (test code = 737-7) 78 19-48 H [facility] BrookMonocytes % (Manual)2017-08-13 08:07:00* Test Item Value Reference Range Interpretation Comments Monocytes % (Manual) (test code = 744-3) 2 3.4-9.0 L [facility] BrookEosinophils % (Manual)2017-08-13 08:07:00 * Test Item Value Reference Range Interpretation Comments Eosinophils % (Manual) (test code = 714-6) 2 0-7 [facility] BrookReactive Pssquiecgcn5824-26-67 08:07:00* Test Item Value Reference Range Interpretation Comments Reactive Lymphocytes (test code = 43814-1) 1 [facility] BrookBlast Cells %2017-08-13 08:07:00* Test Item Value Reference Range Interpretation Comments Blast Cells % (test code = 78011-2) 1 [facility] BrookPlatelet Hdipsmdr0509-42-28 08:07:00* Test Item Value Reference Range Interpretation Comments Platelet Estimate (test code = 95330-1) ADEQUATE [facility] BrookPlatelet Morphology Zxddjmz8689-20-83 08:07:00* Test Item Value Reference Range Interpretation Comments Platelet Morphology Comment (test code = 07403-0) NORMAL [facility] BrookHypochromasia2018-01-12 08:07:00* Test Item Value Reference Range Interpretation Comments Hypochromasia (test code = 728-6) SLIGHT [facility] BrookAnisocytosis2018-01-12 08:07:00* Test Item Value Reference Range Interpretation Comments Anisocytosis (test code = 702-1) SLIGHT [facility] BrookRed Cell Morphology Fuihxfw2096-44-99 08:07:00* Test Item Value Reference Range Interpretation Comments Red Cell Morphology Comment (test code = 6742-1) NORMAL [facility] BrookUrine Random Total Naiupyn1630-87-60 13:48:00* Test Item Value Reference Range Interpretation Comments Urine Random Total Protein (test code = 2888-6) 101.2 1-14 H [facility] BrookUrine Qdrbmycnyt8183-96-67 13:48:00* Test Item Value Reference Range Interpretation Comments Urine Creatinine (test code = 2161-8) 58.66 63-166 L [facility] BrookUrine Creatinine 24 Nqba8309-98-19 13:48:00* Test Item Value Reference Range Interpretation Comments Urine Creatinine 24 Hour (test code = 2162-6) 7985 619-8265 [facility] BrookCreatinine Fbllkwwcp1811-19-10 13:48:00* Test Item Value Reference Range Interpretation Comments Creatinine Clearance (test code = 43091-6) 17 95-145 L [facility] BrookUrine Total Protein 24 Bcgw4089-19-76 13:48:00* Test Item Value Reference Range Interpretation Comments Urine Total Protein 24 Hour (test code = 82786-9) 2074.6 50-1 00 H [facility] BrookUrine Collection Oxvr8642-32-84 13:47:00 * Test Item Value Reference Range Interpretation Comments Urine Collection Time (test code = 30642-1) 24 [facility] BrookUrine Total Dxpgeh7635-31-43 13:47:00* Test Item Value Reference Range Interpretation Comments Urine Total Volume (test code = 23173-7) 2050 800-2000 H [facility] BrookFerritin2018-01-10 11:03:00* Test Item Value Reference Range Interpretation Comments Ferritin (test code = 2276-4) 105.23 21.81-274.66 [facility] BrookMetamyelocytes %2017-08-11 07:27:00* Test Item Value Reference Range Interpretation Comments Metamyelocytes % (test code = 740-1) 1 0-0 H [facility] BrookPoikilocytosis2018-01-10 07:27:00* Test Item Value Reference Range Interpretation Comments Poikilocytosis (test code = 779-9) SLIGHT [facility] BrookPhosphorus Ywvvw7363-21-75 17:34:00* Test Item Value Reference Range Interpretation Comments Phosphorus Level (test code = JJI2260) 4.0 2.3-4.7 [facility] BrookDirect Pjjdajorh6096-68-99 17:34:00* Test Item Value Reference Range Interpretation Comments Direct Bilirubin (test code = 33510-1) 0.1 0.0-5.0 [facility] BrookPathology Consult Doqmenla3867-81-94 15:55:00* Test Item Value Reference Range Interpretation Comments Pathology Consult Specimen (test code = 76425-9) See comment PATH REVIEW: CBC and peripheral smear are reviewed. Agree w/ manual differential .The smear is showing Lymphocytosis w/ mostly dysplastic and no increased blasts .There is associated granulocytopenia w/ normocytic normochromic anemia.IMPRESSI ON: Chronic Lymphocytic LeukemiaReviewed by: Iesha Al [facility] KingwoodInfluenza Virus Types A,B Ljgnpzg1618-87-04 11:35:00* Test Item Value Reference Range Interpretation Comments Influenza Virus Types A,B Antigen (test code = 41398-0) NEGATIVE NEGATIVE [facility] BrookCT ABDOMEN/PELVIS WO [place] [address] Patient Name: CHARLOTTE LANDA MR #: [id number] : 1940 Age/Sex: 76/M Req #: [id number] Adm Physician: STEVEN CHAN MD Ordered by: SANDRA AUSTIN, KAREL AUSTIN Report #: [id number] Location : [facility] Room/Bed: [place] [address] Procedure: [id number] CT/ CT ABDOMEN/PELVIS WO Exam Date: 08/10/17 [...] vascular dise ase. Prostatomegaly. Dictated by: Rosie Wiley M.D. on 08/10/2017 at 12:43 Electronically approved by: Rosie Wiley M.D. on 08/10/2017 at 12:43 Dictated By: ROSIE WILEY MD 1243 Transcribed By: KAILYN on 08/10/17 1243 COPY TO: KAREL FLORES CHEST 2 VIEWS [place] [address] Patient Name: CHARLOTTE LANDA MR #: [id number] : 1940 Age/Sex: 76/M Req #: [id number] Adm Physician: Ordered by: TALIA BIRMINGHAM MD Report #: [id number] Location: ER Room/Bed: Procedure: [id number] DX/CHEST 2 VIEWS Exam Date: 04/19 Exam [...] 5:03 AM Dictated By: YANG SESAY MD Transcribed By: HARRIS on 08/10/17502 COPY TO: TALIA BIRMINGHAM MD US RENAL RETROPERITONEAL COMP [place] [address] Patient Name: CHARLOTTE LANDA MR #: [id number] : 1940 Age/Sex: 76/M Req #: [id number] Adm Physician: STEVEN HAWKINS MD Ordered by: SANDRA AUSTIN, KAREL AUSTIN Report #: [id number] Location: [facility] Room/Bed: [place] [address] Procedure: [id number] US/ US RENAL RETROPERITONEAL COMP Exam Date: [...] appearance of the kidneys. Dictated by: Rosie Wiley M.D. on 08/10/2017 at 11:21 Electronically approved by: Rosie Wiley M.D. on 08/10/2017 at 11:21 Dictated By: ROSIE WILEY MD Electronical ly Signed By: ROSIE WILEY MD on 08/10/17 1121 Transcribed By: KAILYN on 1121 COPY TO: KAREL FLORES
[2020-03-07 03:06] LABS: ALBUMIN/GLOBULIN RATIO 0.5 (0.8-2.0); ANION GAP 22.6 mmol/L (8-16); CALCIUM 8.2 mg/dL (8.4-10.2); CREATININE, SERUM 5.11 mg/dL (0.72-1.25); POTASSIUM 4.6 mmol/L (3.5-5.1)
[2020-03-07] MEDS ORDERED: DEXTROSE 50% SYRINGE 50 ML IV STA ×4 (03:08→07:16)
[2020-03-07 03:14] LABS: BAND NEUTROPHILS % (MANUAL) 8 %; LYMPHOCYTES % (MANUAL) 52 % (19-48); METAMYELOCYTES % (MANUAL) 2 % (0-0); MONOCYTES % (MANUAL) 10 % (3.4-9.0); MYELOCYTES % (MANUAL) 4 % (0-0); NEUTROPHILS % (MANUAL) 24 % (40-74)
[2020-03-07 03:15] LABS: ANISOCYTOSIS MODERATE
[2020-03-07 03:16] LABS: PLATELET ESTIMATE MODERATELY DECREASED; PLATELET MORPHOLOGY COMMENT MOD EDTA CLUMPING
[2020-03-07] MEDS ORDERED: DEXTROSE 50% SYRINGE 50 ML IV ONE ×3 (03:17→10:40)
--- OUTSIDE RECORDS SUMMARY | 2020-03-07 03:27 | XMS REPORT | Clinical Summary ---
Author Author KARINA [facility] Address Unknown Phone Unavailable Care Team Providers Care Associate Spa Director Name Role Phone Kei Cunha PCP Allergies [...] Wilcox MD UPPER ENDOSCOPY,BIOPSY 01/10/2020 [facility] Agrawal, Neeraj, MD Acute upper GI bleed; ESRD (end stage renal disease) on dialysis ([facility]); Hematemesis with nausea; History of [...] ms QTC Calculatio n(Bazett) 504 ms P [place] -65 degrees R [place] 38 degrees T [place] 239 degrees Atrial flutter with 2:1 A-V [...] ms QTC Calculatio n(Bazett) 414 ms P [place] 43 degrees R [place] 23 degrees T [place] 41 degrees Normal sinus rhythm Normal ECG No previous ECGs available ECG 12-LEAD Routine 01/08/2020 6:56 PM CDT SARS-COV2/RT-PCR ([facility] & Routine 01/08/2020 REF LABS) 6:44 PM [...] included. WBC 10.3 3.5 - 10.5 K/L [facility] RBC 3.48 (L) 4.63 - 6.08 M/L [facility] Hemoglobin 10.3 (L) 13.7 - 17.5 GM/DL [facility] Hematocrit 33.3 (L) 40.1 - 51.0 % [facility] MCV 95.7 (H) 79.0 - 92.2 fL [facility] MCH 29.6 25.7 - 32.2 pg [facility] MCHC 30.9 (L) 32.3 - 36.5 GM/DL [facility] RDW 15.2 (H) 11.6 - 14.4 % [facility] Platelets 286 150 - 450 K/CU MM [facility] MPV 9.2 (L) 9.4 - 12.4 fL [facility] nRBC 1 (H) 0 - 0 /100 WBC [facility] % Neutros 64 % [facility] % Lymphs 23 % [facility] % Monos 9 % [facility] % Eos 2 % [facility] % Baso 1 % [facility] # Neutros 6.64 (H) 1.78 - 5.38 K/L [facility] # Lymphs 2.33 1.32 - 3.57 K/L [facility] # Monos 0.95 (H) 0.30 - 0.82 K/L [facility] # Eos 0.15 0.04 - 0.54 K/L [facility] # Baso 0.10 (H) 0.01 - 0.08 K/L [facility] Immature 2 (H) 0 - 1 % [facility] Granulocytes-Relative [facility] Specimen Blood Performing Organization Address [facility] Ph one Number [phone] [place] [address] * POC-Glucose meter (01/11/2020 9:11 AM CDT) Only the most recent of 9 results within the time period is included. POC-Glucose Meter 87Comment: : TESTED AT [facility] 70 - 110 mg/dL [address] [address]: Director Automotive/Combination Welder ID = [id number] for Paramio, Jane Specimen Blood Performing Organization Address [facility] one Number [place] [phone] [address] * Phosphorus (01/11/2020 3:50 AM CDT) Only the most recent of 3 results within the time period is included. Phosphorus 2.1 (L) 2.3 - 4.7 mg/dL [facility] Specimen Blood Narrative Performed At Director Automotive ID - PIAYA L [facility] Performing Organization Address [facility] one Number [place] [phone] [place] [address] * Basic Metabolic Panel (01/11/2020 3:50 AM CDT) Only the most recent of 4 results within the time period is included. Sodium 137 136 - 145 meq/L [facility] Potassium 4.2 3.5 - 5.1 meq/L [facility] Chloride 102 98 - 107 meq/L [facility] CO2 27 22 - 29 meq/L [facility] BUN 17 7 - 21 mg/dL [facility] Creatinine 3.72 (H) 0.57 - 1.25 mg/dL [facility] Glucose 95 70 - 105 mg/dL [facility] Calcium 8.0 (L) 8.4 - 10.2 mg/dL [facility] EGFR 16Comment: ESTIMATED GFR IS mL/min/1.73 sq m [facility] NOT ACCURATE CREATININE [facility] CLEARANCE IN PREDICTING GLOMERULAR FILTRATION RATE. ESTIMATED GFR IS NOT APPLICABLE FOR DIALYSIS PATIENTS. Specimen Blood Narrative Performed At Director Automotive ID - PIAYA L [facility] Performing Organization Address City/State/Zipcode Ph one Number [facility] [address] [place] [address] [address] [facility] * 2D Echo W/Doppler(CW/PW/Color) (01/10/2020 3:49 PM CDT) Ejection Fraction [facility] ECHO HEART[facility] Specimen Narrative Performed At Transthoracic Echocardiography Report (TTE) [facility] ECH O HEARTLAB Demographics [facility] Patient Name CHARLOTTE LANDA Date of Study 01/10/2020 JARED Bailey [id number] Gender Male Visit Number [id number] Unknown [id number] Room Number 1419 Number Date of Birth1940 Referring Physician Rudy Escalera MD Age79 year(s)Key Account Coordinator Brandi Shah MD Physicia n Fellow Prabhu [...] Study 01/10/2020 KIKE Gender Male Visit Number [id number] Race Unknown Room Number 1419 Number Date of 1940 Referring Physician Rudy Escalera MD Age 79 year(s) Key Account Coordinator Brandi Tirado Interpreting Shaka Shah MD Physician [...] 2:18 PM CDT) Case Report Surgical Pathology [facility] TH Report [facility] Case: [id number] Authorizing Provider:Melo Wilcox, Collected: 01/10/2020 02:18 PM Ordering Location: [address] Received: 01/10/2020 04:20 PM Service Pathologist: Jin Rodgers MD Specimens: A) - Stomach, Pyloric Ulcer Bx B) - Stomach,Antrum, Antral Ulcer Bx C) - Biopsy, Gastric, Random Gastric Bx DIAGNOSIS A. STOMACH, PYLORIC ULCER, [facility] BIOPSIES: [facility] - ANTRAL MUCOSA WITH CHRONIC INACTIVE [...] DYSPLASIA, MALIGNANCY Signing Pathologist Direct Phone Line: [phone] CPT Code(s) 68494M8 [facility] H [id number] [facility] CLINICAL HISTORY Hematemesis [facility] H [facility] SPECIMEN SOURCE A. Pyloric ulcer biopsy; B. [facility] Antral ulcer biopsy; C. Random [facility] gastric biopsy GROSS DESCRIPTION The case is received in three [facility] parts labeled with the [facility] patient's name, accession number. A. Received [...] in cassette C1. MW/pl MICROSCOPIC DESCRIPTION Performed. [facility] SPECIAL STUDIES The interpretation of this [facility] case included the use of [facility] immunohistochemistry or special stains. Control Slides Examined: In-house known positive controls were evaluated along with the test tissue. These control slides run alongside of the patients sample show appropriate staining. Internal positive and negative controls when available are evaluated Immunohistochemistry technical testing was performed at [facility], Pathology Laboratory where it was developed and [...] Performing Organization Address City/State/Zipcode Ph one Number [place] [phone] [place], [place] [address] [facility] * HEMODIALYSIS INPATIENT [...] Hemoglobin 9.5 (L) 13.7 - 17.5 GM/DL [facility] Hematocrit 29.5 (L) 40.1 - 51.0 % [facility] Specimen Blood Narrative Performed At Director Automotive ID - [id number] [facility] Performing Organization Address [facility] one Number [address] [facility] * Troponin I (01/09/2020 3:49 PM CDT) Troponin I 0.01 0.00 - 0.03 ng/mL [facility] Specimen Blood Narrative Performed At Troponin I (TnI) levels must be interpreted in the co ntext of the presenting [facility] symptoms and the clinical findings. Elevated TnI leve ls indicate myocardial [facility] damage, but are not specific for ischem ic heart disease. Elevated TnI levels are seen in patients with other cardiac con ditions (including myocarditis and congestive heart failure), and slight T nI elevations occur in patients with other conditions, including sepsis, hollie al failure, acidosis, acute neurological disease, and persistent tachyarrhythmia . Director Automotive ID - BS Performing Organization Address [facility] one Number [address] [facility] * ECG 12 lead (01/09/2020 1:41 PM CDT) Only the most recent of 2 results within the time period is included. Specimen Narrative Performed At Ventricular Rate 157 BPM GE MUSE Atrial Rate 314 BPM QRS Duration 70 ms Q-T Interval 312 ms QTC Calculation(Bazett) 504 ms P [place] -65 degrees R [place] 38 degrees T [place] 239 degrees Atrial flutter with 2:1 A-V [...] 312 ms QTC Calculation(Bazett) 504 ms P [place] -65 degrees R [place] 38 degrees T [place] 239 degrees Atrial flutter with 2:1 A-V [...] Anterolateral leads Confirmed by MD DEVLIN RAYMOND ([id number]) on 01/10/2020 12:25:32 PM Performing Organization Address City/[facility] Ph one Number GE MUSE * Potassium-Stat Lab (01/09/2020 10:55 AM CDT) Potassium 3.1 (L) 3.6 - 5.5 meq/L [facility] Specimen Blood, Arterial Performing Organization Address City/[facility] Ph one Number [address] MED[facility] CENTER * Hepatitis B surface antigen (01/08/2020 11:14 PM CDT) HBsAg Screen Nonreactive Nonreactive [facility] Specimen Blood Narrative Performed At Specimen is considered negative for HBsAg. [facility] Performing Organization Address City/[facility] Ph one Number [place] [address] [address] [phone] [address] * Magnesium (01/08/2020 8:02 PM CDT) Magnesium 1.9 1.6 - 2.6 mg/dL [facility] Specimen Blood Narrative Performed At Director Automotive ID - BS [facility] Performing Organization Address [facility] Ph one Number [address] [phone] [address] * SARS-CoV2/RT-PCR (Asymptomatic ONLY) (01/08/2020 6:44 PM CDT) SARS-COV2/RT-PCR Not Detected Not Detected, Negative [facility] SARS-COV-2 PERFORMING LAB [facility] Specimen Other Narrative Performed At Negative results do not preclude SARS-C oV-2 infection and should not be used as [facility] the sole basis for patient management decisions. Nega tive results must be [facility] combined with clinical observations, pa tient [...] the Act. Fact Sheet for Healthcare Providers: https://www.Qomuty/Documents/Xpert%20Xpress%20SARS%20CoV-2/Fact%20Sheets/30 2-3802%07OSUF-CKG-0%20HEALTHCARE%20PROV IDERS%20FACT%20SHEET.pdf Fact Sheet for Healthcare Patients: https://www.Qomuty/Documents/Xpert%20Xpress%20SARS%20CoV-2/Fact%20Sheets/30 2-3801%05VNZE-BET-6%20PATIENT%20FACT%20 SHEET.pdf Performing Laboratory: [address] [place] [address] Performing Organization Address City/State/[facility] Cent[facility] Ph one Number [facility] [address] [place] [address] [address] [facility] after 03/07/2019 Insurance Payer Benefit Subscriber ID Type Phone Address Plan / Group [employer] CIGNA xxxxxxxxxxx [facility] [employer] Contracted NG ALL CDC REVIEW CDC REVIEW xxxxx[place] [address] [place] [phone] Advance Directives For more information, please contact: [address] [address] Date Inactivated Comments Code Status Date Activated 01/11/2020 1:49 PM Full Code 01/08/2020 5:39 PM This code status was determined by: Patient 12/31/2017 9:35 PM Full Code 12/31/2017 11:29 AM This code status was determined by: Patient
--- OUTSIDE RECORDS SUMMARY | 2020-03-07 03:28 | XMS REPORT | Continuity of Care Document ---
Author Author [facility] t Organization [facility] t Address [address] [place] [address] Phone Unavailable Care Team Providers Care Housekeeper/Laundry Assistant Name Role Phone MD STEVEN HAWKINS MD PCP STEVEN HAWKINS Attphys Unavailable Merchant AUSTIN, Adan Attphys Jw AUSTIN, Rudy Attphys Hernando AUSTIN, Savi Boggs Attphys Jeri AUSTIN, Miguel Alejo Attphys [phone] ADAN AKERS Attphys Unavailable HORTENCIA GARCIA MD Attphys Unavailable Shahzad BIRMINGHAM Attphys Unavailable Alejandra PETERSON Attphys Unavailable JORDYN IRENE Attphys Unavailable NELL ROPER Attphys Unavailable STEVEN HAWKINS Admphys Unavailable RUDY SAWANT Admphys Unavailable NELL ROPER Admphys Unavailable Payers Payer Name Policy Type Policy Number Effective Date Expiration Date Chandana walker [employer] [id number] 2019 00:00:00 [facility] CIG HEALTHSPRINGCIGNA HEALTHSPRING ALLxxxxxxxxxxxMaps Cont racted xxxxxxxxxxx [facility] CDC REVIEWCDC REVIEWxxxxxxxxPO CHRIS MCCARTHY [id number] x xxxxxxx [facility] Problems Condition Name Condition Details Condition Category Status Onset Date Resolution Date Last Treatment Date Treating Clinician Comments Source Acute upper GI bleed Acute upper GI bleed Disease Active 00:00:00 [facility] ESRD (end stage renal disease) on dialysis ESRD (end s tage renal disease) on dialysis Disease Active 2017-12-31 00:00:00 [facility] Gastrointestinal hemorrhage GI bleed Problem Active 2014-09-23 00:00:00 [facility] Acute renal failure superimposed on chronic kidney dis ease Acute on chronic renal failure Problem Active [facility] Pruritus Pruritus Problem Active [facility] Uremia Uremia Problem Active [facility] Angioedema Angio-edema Problem Active [facility] Conjunctivitis Conjunctivitis Problem Active [facility] Cellulitis of right orbital region Orbital cellulitis on right Proble m Active [facility] Effusion of right knee Problem Active [facility] Left shoulder pain Problem Active [facility] Hyperglycemia Problem Active [facility] ESRD on hemodialysis ESRD on hemodialysis Disease Active [facility] Allergies, Adverse Reactions, Alerts This patient has no known allergies or adverse reactions. Social History Social Habit Start Date Stop Date Quantity Comments Source Sex Assigned At [facility] Smoking Status Start Date Stop Date Source [facility] sm[facility] [place] Medications Ordered Medication Name Filled Medication Name Start Date Stop Da te Current Medication? Ordering Clinician Indication Dosage Frequency Signature (SIG) Comments Components Source ceFAZolin (ANCEF) 2g IVPB (DUPLEX) in D5W 50 mL 2020-01-12 00:00 :00 Yes 2g Inject 50 mLs (2 g total) in travenously 3 (three) times a week after dialysis MON/WED/WED. [facility] amiodarone (PACERONE) 200 MG tablet 2020-01-11 09:57:0 6 2020-01-11 00:00:00 No 200mg Q.5D Take 200 mg by mouth 2 (two) times daily . [facility] ibrutinib (IMBRUVICA) 140 mg Cap 2020-01-11 09:57:06 2020-01 00:00:00 No chronic lymphocytic leukemia 280{capsule} Take 280 ca psules by mouth once at bedtime. [facility] ibrutinib 140 mg Cap 2020-01-11 09:57:05 2020-01-11 00:00:00 No Take by mouth Daily (1800). [facility] sulfaSALAzine (AZULFIDINE) 500 mg tablet 2020-01 09:57:05 2020-01-11 00:00:00 No 500mg Q.25D Take 500 mg by mouth 4 (four) t imes daily. [facility] amiodarone (PACERONE) 200 MG tablet 2020-01-11 00:00:00 Yes 200mg QD Take 1 tablet (200 mg total) by mouth daily. [facility] ibrutinib (IMBRUVICA) 140 mg Cap 2020-01-11 00:00:00 Yes chronic lymphocytic leukemia 280mg Take 2 capsules (28 0 mg total) by mouth once at bedtime. [facility] metoprolol tartrate (LOPRESSOR) 25 MG tablet 00:00:00 2021-01-10 23:59:00 Yes 25mg Q.5D Take 1 tablet (25 mg total) by mouth 2 (two) times daily. [facility] pantoprazole (PROTONIX) 40 MG tablet 2020-01-11 00:00: 00 2020-04-10 23:59:00 Yes 40mg Q.5D Take 1 tablet ( 40 mg total) by mouth 2 (two) times daily for [address] [facility] lidocaine (LIDODERM) 5 % patch 2020-01-08 18:16:14 Yes 1{patch} Q24H Place 1 patch onto the skin daily Remove & Discard patch within 12 hours or as directed by . [facility] allopurinoL (ZYLOPRIM) 100 MG tablet 2020-01-08 18:16:13 Ye s 100mg QD Take 100 mg by mouth daily. [facility] calcium acetate,phosphat bind, (PHOSLO) 667 mg capsule 2020-01-08 18:16:13 Yes 667mg Q.[id number] Take 667 mg by mouth 3 (three) times daily. [facility] HYDROcodone-acetaminophen (NORCO 5-325) 5-325 mg per tablet 2020-01-08 18:16:13 Yes 1{tbl} Take 1 tab let by mouth every 6 (six) hours as needed for Pain. [facility] Acetaminophen Acetaminophen Yes 325 Ever y 6 Hours as needed for Pain [facility] Allopurinol Allopurinol Yes 100 Daily [facility] Amiodarone Hcl Amiodarone Hcl Yes 200 Daily [facility] Calcium Acetate Calcium Acetate Yes 2 Three Ti mes A Day [facility] Cefazolin Sodium/Dextrose,Iso (Cefazolin 1 Gm-D5w Bag) 1 Gm/50 Ml FROZ.PIGGY Cefazolin Sodium/Dextrose,Iso (Cefazolin 1 Gm-D5w Bag) 1 Gm/50 Ml FROZ.PIGGY Yes 2 M,W,F [facility] Cholestyramine (With Sugar) (Questran Packet) 4 Gm PAC KET Cholestyramine (With Sugar) (Questran Packet) 4 Gm PACKET Yes 4 T wice A Day [facility] Folic Acid/Vitamin B Comp W-C (Dialyvite 800 Tablet) 0 .8 Mg TABLET Folic Acid/Vitamin B Comp W-C (Dialyvite 800 Tablet) 0.8 Mg TABLET Yes 1 Daily [facility] Hydrocodone Bit/Acetaminophen ([place] 5-325 Tablet) 1 E ach TABLET Hydrocodone Bit/Acetaminophen ([place] 5-325 Tablet) 1 Each TABLET Yes 1 Every 4 Hours as needed for Moderate Pain (4-6) [facility] Ibrutinib (Imbruvica) 70 Mg CAPSULE Ibrutinib (Imbruvica) 70 Mg CAPSU LE Yes 140 Bedtime for Leukemia [facility] Ibrutinib (Imbruvica) 140 Mg CAPSULE Ibrutinib (Imbruvica) 140 Mg C APSULE Yes 140 Bedtime [facility] Insulin Regular, Human (Humulin R) 100 Unit/1 Ml VIAL Insulin Regular, Human (Humulin R) 100 Unit/1 Ml VIAL Yes [facility] Lidocaine/Menthol (Lidopatch) 1 Each ADH..PATCH Lidoca ine/Menthol (Lidopatch) 1 Each ADH..PATCH Yes 1 Daily as needed for Pa in [facility] Megestrol Acetate Megestrol Acetate Yes 400 Madonna y for Leukemia [facility] Metoprolol Tartrate Metoprolol Tartrate Yes 25 Twice A Day [facility] Midodrine Hcl Midodrine Hcl Yes 10 as needed fo r Hypotension [facility] Pantoprazole Sodium (Protonix) 40 Mg TABLET. Pantopr azole Sodium (Protonix) 40 Mg TABLET. Yes 40 Every 12 Hours for Gi Ble ed [facility] Sucralfate Sucralfate Yes 1 Four Times Daily f or Gi Bleed [facility] Sulfasalazine Sulfasalazine Yes 500 Four Times D aily [facility] Prednisone Prednisone 2019-12-14 00:00:00 No 5 Radha ly [facility] Prednisone Prednisone 2019-05-20 00:00:00 No 10 Radha ly [facility] Tamsulosin Hcl (Flomax*) 0.4 Mg CAP Tamsulosin Hcl (Flomax*) 0.4 Mg CAP 2019-05-20 00:00:00 No .4 Daily [facility] Warfarin Sodium (Coumadin) 1 Mg TABLET Warfarin Sodium (Coumadin ) 1 Mg TABLET 2017-08-13 00:00:00 No 1 Twice A Day [facility] Metronidazole (Flagyl) 500 Mg TABLET Metronidazole (Flagyl) 500 Mg TABLET 2014-09-23 00:00:00 No 500 Three Times A Day [facility] Vital Signs Vital Name Observation Time Observation Value Comments Source Body Temperature 2020-01-19 16:00:00 97.5 [degF] [facility] BMI (Body Mass Index) 2020-01-15 12:12:00 24.5 kg/m2 [facility] Weight 2020-01-14 22:44:00 152 [lb_av] [facility] Systolic blood pressure 2020-01-11 08:00:00 154 mm[Hg] [facility] Diastolic blood pressure 2020-01-11 08:00:00 70 mm[Hg] [facility] Heart rate 2020-01-11 08:00:00 87 /min [facility] Body temperature 2020-01-11 08:00:00 36.06 Paula [facility] Respiratory rate 2020-01-11 08:00:00 18 /min [facility] Body weight Measured 2020-01-11 08:00:00 73.664 kg [facility] BMI 2020-01-11 08:00:00 26.21 kg/m2 [facility] Oxygen saturation in Arterial blood by Pulse oximetry 01-10 08:00:00 99 [facility] 2020-01-08 10:19:00 152 [lb_av] [facility] BMI (Body Mass Index) 2020-01-08 10:19:00 24.5 kg/m2 [facility] Body Temperature 2020-01-04 16:31:00 97.5 [degF] [facility] BMI (Body Mass Index) 2020-01-01 02:55:00 24.5 kg/m2 [facility] Weight 2019-12-31 16:39:00 152 [lb_av] [facility] Weight 2019-12-13 13:36:00 143 [lb_av] [facility] BMI (Body Mass Index) 2019-12-13 13:36:00 23.1 kg/m2 [facility] Weight 2019-12-02 19:46:00 143 [lb_av] [facility] BMI (Body Mass Index) 2019-12-02 19:46:00 23.1 kg/m2 [facility] Body Temperature 2019-05-30 15:52:00 95.9 [degF] [facility] Procedures Procedure Date / Time Performed Performing Clinician Stuart almendarez Computed tomography of chest without contrast 2020-01-15 00:00:0 0 [facility] RHYTHM STRIP - SCAN 2020-01-12 09:51:20 Provider, Neeraj birch [facility] CBC W/PLT COUNT & AUTO DIFFERENTIAL 2020-01-11 09:43:00 Rudy Sawant [facility] POCT-GLUCOSE METER 2020-01-11 09:11:00 Rudy Sawant [facility] PHOSPHORUS 2020-01-11 03:50:00 Rudy Sawant [facility] BASIC METABOLIC PANEL (7) 2020-01-11 03:50:00 Rudy Sawant [facility] POCT-GLUCOSE METER 2020-01-10 22:08:00 Rudy Sawant [facility] POCT-GLUCOSE METER 2020-01-10 15:53:00 Rudy Sawant [facility] 2D ECHO W/ DOPPLER (CW/PW/COLOR) 2020-01-10 15:49:27 Lashon Sawant [facility] REPORT OF PROCEDURE - ENDOSCOPY URL 2020-01-10 14:34:09 Melo Wilcox [facility] TISSUE EXAM 2020-01-10 14:18:00 Melo Wilcox [facility] UPPER ENDOSCOPY,BIOPSY 2020-01-10 12:53:00 Melo Wilcox [facility] HEMODIALYSIS INPATIENT 2020-01-10 12:20:00 Erasmo Can [facility] POCT-GLUCOSE METER 2020-01-10 07:38:00 Rudy Sawant [facility] BASIC METABOLIC PANEL (7) 2020-01-10 05:06:00 Rudy Sawant [facility] PHOSPHORUS 2020-01-10 05:06:00 Rudy Sawant [facility] CBC W/PLT COUNT & AUTO DIFFERENTIAL 2020-01-10 [facility]:06[facility] 2020-01-09 23:45:00 Rudy Sawant [facility] POCT-GLUCOSE METER 2020-01-09 18:02[facility] 2020-01-09 15:49:00 Rudy Sawant [facility] HEMOGLOBIN AND HEMATOCRIT 2020-01-09 15:49:00 JwRudy [facility] POCT-GLUCOSE METER 2020-01-09 14:11:00 [facility] 12-LEAD 2020-01-09 13:41:34 Unknown, Hl7 [facility] POCT-GLUCOSE METER 2020-01-09 13:10:00 [facility] 2020-01-09 10:55:27 Melo Wilcox [facility] HEMODIALYSIS INPATIENT 2020-01-09 07:22:01 Erasmo Can [facility] BASIC METABOLIC PANEL (7) 2020-01-09 03:52:00 Rudy Sawant [facility] PHOSPHORUS 2020-01-09 03:52:00 Jw Rudy [facility] CBC W/PLT COUNT & AUTO DIFFERENTIAL 2020-01-09 03:52[facility]00 [facility]TIGEN 2020-01-08 23:14:00 Erasmo Can [facility] POCT-GLUCOSE METER 2020-01-08 21:27:00 [facility]OLIC PANEL (7) 2020-01-08 20:02:00 Rudy Sawant [facility] MAGNESIUM 2020-01-08 20:02:00 Rudy Sawant [facility] CBC W/PLT COUNT & AUTO DIFFERENTIAL 2020-01-08 20:02:00 Rudy Sawant [facility] ECG 12-LEAD 2020-01-08 18:56:38 Unknown, Hl7 [facility] SARS-COV2/RT-PCR ([facility] REF [facility]) 2020-01-08 18:44:00 Jason Maci higgins Ivonnerodestuardo [facility] EMERGENCY DEPT VISIT 2020-01-08 00:00:00 [facility] PERFORMANCE OF URINARY FILTRATION, <6 HRS/DAY 2020-01-01 00:00:0 0 [facility] TRANSFUSE NONAUT RED BLOOD CELLS IN CENTRAL VEIN, PERC 1 00:00:00 [facility] PERFORMANCE OF URINARY FILTRATION, <6 HRS/DAY 2019-12-26 00:00:0 0 [facility] EXCISION OF ASCENDING COLON, ENDO, DIAGN 2019-12-25 00:00:00 [facility] EXCISION OF RECTUM, ENDO, DIAGN 2019-12-25 00:00:00 [facility] EXCISION OF CECUM, ENDO, DIAGN 2019-12-25 00:00:00 [facility] INSPECTION OF UPPER INTESTINAL TRACT, ENDO 2019-12-25 00:00:00 [facility] PERFORMANCE OF URINARY FILTRATION, <6 HRS/DAY 2019-12-23 00:00:0 0 [facility] PERFORMANCE OF URINARY FILTRATION, <6 HRS/DAY 2019-12-21 00:00:0 0 [facility] PERFORMANCE OF URINARY FILTRATION, <6 HRS/DAY 2019-12-20 00:00:0 0 [facility] PERFORMANCE OF URINARY FILTRATION, <6 HRS/DAY 2019-12-19 00:00:0 0 [facility] PERFORMANCE OF URINARY FILTRATION, <6 HRS/DAY 2019-12-18 00:00:0 0 [facility] PERFORMANCE OF URINARY FILTRATION, <6 HRS/DAY 2019-12-15 00:00:0 0 [facility] EXCISION OF RIGHT KNEE JOINT, PERC ENDO APPROACH 2019-12-14 00:0 0:00 [facility] STRAPPING OF KNEE 2019-12-02 00:00:00 [facility] PERFORMANCE OF URINARY FILTRATION, <6 HRS/DAY 2019-05-29 00:00:0 0 [facility] Computed tomography of orbits, sella tur cica, and posterior cranial fossa without contrast 2019-05-20 00:00:00 SHIELA DASH [facility] Plan of Care Planned Activity Planned Date Details Comments Source Instructions Anemia [facility] Instructions Diabetes and Diet [facility] Instructions GI Bleeding [facility] Instructions Infection Control [facility] Encounters Start Date/Time End Date/Time En[facility] Type [facility] ID Source 2020-01-08 10:11:00 2020-01-08 15:31:00 Departed Emergency Room 1 HORTENCIA GARCIA MD [facility] [id number] [facility] 2019-12-31 16:52:00 2020-01-04 18:50:00 Discharged Inpatient [facility] [id number] [facility] 2019-12-14 15:29:00 2019-12-28 17:36:00 Discharged Inpatient 3 STEVEN HAWKINS [facility] [id number] [facility] 2019-12-13 13:07:00 2019-12-13 16:33:00 Departed Emergency Room 1 TALIA BIRMINGHAM [facility] [id number] [facility] 2019-12-02 19:35:00 2019-12-02 22:29:00 Departed Emergency Room 1 MICHAEL PETERSON [facility] [id number] [facility] 2019-05-20 21:16:00 2019-05-30 17:15:00 Discharged Inpatient 1 TALIA BIRMINGHAM [facility] [id number] [facility] 2019-01-03 06:53:00 2019-01-06 17:40:00 Discharged Inpatient 1 STEVEN HAWKINS [facility] [id number] [facility] 2019-01-02 10:47:00 2019-01-02 10:47:00 Registered Clinic 3 JORDYN COSME [facility] [id number] [facility] 2018-01-31 20:52:00 2018-02-01 00:11:00 [facility]arted Emergency [facility] [id number] [facility] 2017-08-10 10:08:00 2017-08-13 16:56:00 Discharged Inpatient ER STEVEN HAWKINS [facility] [id number] [facility] Results Test Description Test Time Test Comments Results Result Comments Source Capillary blood glucose measurement by glucometer (mas s/volume) 2020-01-19 07:16:00 Test Item Bedside Glucose (test code = 21093-6) 94 70-120 Meter ID: [id number] leukocytes automated count (number/volume)2020-01-19 05:45:00* Test Item Value Reference Range Interpretation Comments White Blood Count (test code = 6690-2) 7.65 4.8-10.8 [facility] erythrocytes automated count (number/volume)2020-01-19 05:45:00* Test Item Value Reference Range Interpretation Comments Red Blood Count (test code = 789-8) 2.92 4.3-5.7 [facility] hemoglobin measurement (moles/volume)2020-01-19 05:45:00* Test Item Value Reference Range Interpretation Comments Hemoglobin (test code = 46236-6) 8.4 14.0-18.0 [facility]ball[facility]ated blood hematocrit (volume fraction)2020-01-19 05:45:00* Test Item Value Reference Range Interpretation Comments Hematocrit (test code = 4544-3) 27.0 38.2-49.6 [facility]ballAutomated erythrocyte mean corpuscular hidfxu2850-40-26 05:45:00* Test Item Value Reference Range Interpretation Comments Mean Corpuscular Volume (test code = 787-2) 92.5 81-99 [facility]ballAutomated erythrocyte mean corpuscular hemoglobin (mass per erythrocyte)2020-01-19 05:45:00* Test Item Value Reference Range Interpretation Comments Mean Corpuscular Hemoglobin (test code = 785-6) 28.8 28-32 [facility]ball[facility] erythrocyte mean corpuscular hemoglobin concentration measurement (mass/volume)2020-01-19 05:45:00* Test Item Value Reference Range Interpretation Comments Mean Corpuscular Hemoglobin Concent (test code = 786-4) 31.1 31-35 [facility] TomballRDW MliSp-Gfl1988-25-19 05:45:00* Test Item Value Reference Range Interpretation Comments Red Cell Distribution Width (test code = 61874-8) 14.5 11.7 -14.4 [facility]ball[facility]ated blood platelet count (count/volume)2020-01-19 05:45:00* Test Item Value Reference Range Interpretation Comments Platelet Count (test code = 777-3) 208 140-360 [facility]ball[facility] blood segmented neutrophil count as percentage of total aofdyudfke4207-90-62 05:45:00* Test Item Value Reference Range Interpretation Comments Neutrophils (%) (Auto) (test code = 24944-8) 59.1 38.7-80.0 [facility]ball[facility]ated blood lymphocyte count as percentage ot total vxpcxxldck7539-61-73 05:45:00* Test Item Value Reference Range Interpretation Comments Lymphocytes (%) (Auto) (test code = 736-9) 28.5 18.0-39.1 [facility]ballAutomated blood monocyte count as percentage of total ayedupfodo4184-49-99 05:45:00* Test Item Value Reference Range Interpretation Comments Monocytes (%) (Auto) (test code = 5905-5) 9.3 4.4-11.3 [facility]ball[facility]ated blood eosinophil count as percentage of total tgqccwnpro3175-84-44 05:45:00* Test Item Value Reference Range Interpretation Comments Eosinophils (%) (Auto) (test code = 713-8) 1.7 0.0-6.0 [facility]ballAutomated blood basophil count as percentage of total qlrkibsllp4453-88-93 05:45:00* Test Item Value Reference Range Interpretation Comments Basophils (%) (Auto) (test code = 706-2) 0.7 0.0-1.0 [facility]ballFluoroscopic procedure less than one hour tvibiovw8614-64-09 05:45:00* Test Item Value Reference Range Interpretation Comments IM GRANULOCYTES % (test code = IM GRANULOCYTES %) 0.7 0.0- 1.0 [facility]ball[facility] blood neutrophil count 2020-01-19 05:45:00* Test Item Value Reference Range Interpretation Comments Neutrophils # (Auto) (test code = 751-8) 4.5 2.1-6.9 [facility]ball[facility] lymphocytes count (number/volume) 2020-01-19 05:45:00* Test Item Value Reference Range Interpretation Comments Lymphocytes # (Auto) (test code = 90414-9) 2.2 1.0-3.2 [facility]ball[facility] monocytes automated count (number/volume)2020-01-19 05:45:00* Test Item Value Reference Range Interpretation Comments Monocytes # (Auto) (test code = 742-7) 0.7 0.2-0.8 [facility]ballAutomated blood eosinophil count 2020-01-19 05:45:00* Test Item Value Reference Range Interpretation Comments Eosinophils # (Auto) (test code = 711-2) 0.1 0.0-0.4 [facility]ballAutomated blood basophil count (count/volume)2020-01-19 05:45:00* Test Item Value Reference Range Interpretation Comments Basophils # (Auto) (test code = 704-7) 0.1 0.0-0.1 [facility] TomballFluoroscopic procedure less than one hour ybrhefsb4126-75-05 05:45:00* Test Item Value Reference Range Interpretation Comments Absolute Immature Granulocyte (auto (mojgan t code = Absolute Immature Granulocyte (auto) 0.05 0-0.1 [facility] or plasma sodium measurement (moles/volume)2020-01-16 05:27:00* Test Item Value Reference Range Interpretation Comments Sodium Level (test code = 2951-2) 136 136-145 [facility] Cent[facility]rum or plasma potassium measurement (moles/volume)2020-01-16 05:27:00* Test Item Value Reference Range Interpretation Comments Potassium Level (test code = 2823-3) 4.3 3.5-5.1 [facility] Cent[facility] or plasma chloride measurement (moles/volume)2020-01-16 05:27:00* Test Item Value Reference Range Interpretation Comments Chloride Level (test code = 2075-0) 100 98-107 [facility] Cent[facility]rum or plasma carbon dioxide, total measurement (moles/volume)2020-01-16 05:27:00* Test Item Value Reference Range Interpretation Comments Carbon Dioxide Level (test code = 2028-9) 28 22-29 [facility] Cent[facility]rum or plasma anion uyc0358-34-99 05:27:00* Test Item Value Reference Range Interpretation Comments Anion Gap (test code = 58250-6) 12.3 8-16 [facility] Cent[facility] or plasma urea nitrogen measurement (mass/volume)2020-01-16 05:27:00* Test Item Value Reference Range Interpretation Comments Blood Urea Nitrogen (test code = 3094-0) 22 7-26 [facility] Centererum or plasma creatinine measurement (mass/volume)2020-01-16 05:27:00* Test Item Value Reference Range Interpretation Comments Creatinine (test code = 2160-0) 3.84 0.72-1.25 [facility] Centererum or plasma urea nitrogen/creatinine mass ioflz5630-53-25 05:27:00* Test Item Value Reference Range Interpretation Comments BUN/Creatinine Ratio (test code = 3097-3) 6 6-25 [facility] TomballEstimated glomerular filtration rate (GFR) rkdhhdhetdhvv5536-43-14 05:27:00* Test Item Value Reference Range Interpretation Comments Estimat Glomerular Filtration Rate (test code = 554848715) 15 >60 Ranges were taken from the National Kidney Disease Education Program and the [facility] literature.Reference ranges:60 or greater: Zmpgra49-61 ( for 3 consecutive months): Chronic kidney disease 15 or less: Kidney failureHCA Houston Healthcare TomballGlucose bbdvrybtsmf1318-09-60 05:27:00* Test Item Value Reference Range Interpretation Comments Glucose Level (test code = HIQ4614) 79 74-118 [facility] Cent[facility] or plasma calcium measurement (mass/volume)2020-01-16 05:27:00* Test Item Value Reference Range Interpretation Comments Calcium Level (test code = 11867-9) 8.2 8.4-10.2 [facility]ball[facility]itative serum or plasma hepatitis B virus e antibody by enzyme corhrotisbo8322-49-70 09:40:00* Test Item Value Reference Range Interpretation Comments Hepatitis Be Antibody (test code = 61733-9) Negative Negative Performed at: [employer] [id number] Emb[employer]ing Tool Setter: Magalie Baca MD, Phone: [phone] [facility] Centere[facility] hepatitis B virus e antigen detection by enzyme immunoassay 2020-01-15 09:40:00* Test Item Value Reference Range Interpretation Comments Hepatitis Be Antigen (test code = 92276-3) Negative Negative [facility] or plasma hepatitis B virus core antibody detection by dkkmaokybiv4087-39-11 09:40:00* Test Item Value Reference Range Interpretation Comments Hepatitis B Core Total Antibody (test code = 07210-3) Negative Negative [facility] or plasma hepatitis B virus core IgM antibody detection by xvlaicvyand6334-57-71 09:40:00* Test Item Value Reference Range Interpretation Comments Hepatitis B Core IgM Antibody (test code = 49081-7) Negative Ne gative Performed at: [employer] [facility] [id number] Director: Gregor Hernandez MD, Phone: [phone] [facility] less than one hour nyljsrdy3742-62-30 03:35:00* Test Item Value Reference Range Interpretation [...] complexity tests.Testing performed by [facility] [address] [phone] Director: lBake Webber M.D.CLIA # [id number] [facility] CHEST XU0493-73-18 03:18:00 [place] [address] Patient Name: CHARLOTTE LANDA MR #: [id number] : 1940 Age/Sex: 79/M Req #: [id number] Adm Physician: STEVEN HAWKINS MD Ordered by: SHIELA DASH MD Report #: [id number] Location: MED/SURG Room/Bed: [facility] Procedure: [id number] CT/CT [facility] Exam Date: 01/15/20 Exam Time: 219 REPORT [...] SHIELA DASH MD CHEST SINGLE (PORTABLE)2020-01-15 01:28:00 [place] [address] Patient Name: CHARLOTTE LANDA MR #: [id number] : 1940 Age/Sex: 79/M Req #: [id number] Adm Physician: STEVEN HAWKINS MD Ordered by: SHIELA DASH MD Report #: [id number] Location: MED/SURG Room/Bed: 1101 Procedure: [id number] DX/CHEST SINGLE (PORTABLE) Exam Date: 01/15/20 Exam [...] Transcribed By: HARRIS marte 01/15/20134 COPY TO: SIHELA DASH MD Prothrombin time (PT) in platelet poor plasma by coagulation nzsbd9071-17-69 01:30:00* Test Item Value Reference Range Interpretation Comments Prothrombin Time (test code = 5902-2) 15.4 11.9-14.5 [facility]ball[facility]R in Platelet poor plasma by Coagulation iskgs5046-90-94 01:30:00* Test Item Value Reference Range Interpretation Comments Prothromb Time International Ratio (test code = 6301-6) 1.15 Oral Anticoagulant Therapy INR Values:1. Low Intensity Therapy 1.5 - 2.02 . Moderate Intensity Therapy 2.0 - 3.03. High Intensity Therapy(1) 2.5 - 3. 54. High Intensity Therapy(2) 3.0 - 4.05. Panic Value INR > 5.0 [facility]ballActivated partial thromboplastin time (aPTT) in platelet poor plasma by coagulation ksobg1807-72-27 01:30:00* Test Item Value Reference Range Interpretation Comments Activated Partial Thromboplast Time (test code = 25131-5) 42.4 23.8-35.5 [facility] plasma total bilirubin measurement (mass/volume)2020-01-14 01:30:00* Test Item Value Reference Range Interpretation Comments Total Bilirubin (test code = 1975-2) 0.3 0.2-1.2 [facility]ballFluoroscopic procedure less than one hour rlouefkc6497-26-87 01:30:00* Test Item Value Reference Range Interpretation Comments Aspartate Amino Transf (AST/SGOT) (test code = Aspartate Amino Transf (AST/SGOT)) 6 5-34 [facility] Cent[facility] or plasma alanine aminotransferase measurement (enzymatic activity/volume)2020-01-14 01:30:00* Test Item Value Reference Range Interpretation Comments Alanine Aminotransferase (ALT/SGPT) (test code = 1742-6) < 6 0-55 [facility] or plasma protein measurement (mass/volume)2020-01-14 01:30:00* Test Item Value Reference Range Interpretation Comments Total Protein (test code = 2885-2) 6.5 6.5-8.1 [facility] Cent[facility] or plasma albumin measurement (mass/volume)2020-01-14 01:30:00* Test Item Value Reference Range Interpretation Comments Albumin (test code = 1751-7) 1.6 3.5-5.0 [facility]ballPlasma globulin measurement (mass/volume) 2020-01-14 01:30:00* Test Item Value Reference Range Interpretation Comments Globulin (test code = 51224-9) 4.9 2.3-3.5 [facility] or plasma albumin/globulin mass pwkov0556-20-20 01:30:00* Test Item Value Reference Range Interpretation Comments Albumin/Globulin Ratio (test code = 1759-0) 0.3 0.8-2.0 [facility] Cent[facility] or plasma alkaline phosphatase measurement (enzymatic activity/volume)2020-01-14 01:30:00* Test Item Value Reference Range Interpretation Comments Alkaline Phosphatase (test code = 6768-6) 74 40-150 [facility] TomballTissue Ggsi3130-84-21 10:58:00* Test Item Value Reference Range Interpretation Comments Case Report (test code = 104) Surgical Pathology Repor t Case: [id number] Authorizing Provider: Melo Wilcox, Collected: 01/10/2020 02:18 PM Ordering Location: [address] Received: 01/10/2020 04:20 PM Service Pathologist: Jin Rodgers MD Specimens: A) - Stomach, Pyloric Ulcer Bx B) - Stomach, Antrum, Antral Ulcer Bx C) - Biopsy, Gastric, Random Gastric Bx DIAGNOSIS (test code = 3220) x1kmlCDfPLBfx9omQUXzzFQvQiHsQsKeXxTyDtdfzOOnQNjhypLlFUbyd5LtD1MnRhJzXVdhukNnLSTd ZtfvkqikSCMvRHY7rsIgIRBjUFvcWRSfPZxcEk9lrQStsOueWgXcGIAbv3rzwjMThrhdhKm7d1raCERj XtD7lHGiZZndK1qvglYqwOQmXMVzOKe5gC60KELalA 2ouMKoLKxgcnNgUHtbleXgtvFpLkg7VXHtM2hpTJRlEJCvI1EgLC0xLNEsNrs2BKE9TKX8xNflq7C0gX HdqXDttEzdIiHhMzDhXRSNm3YcVBw4kTjoK9YiJPWnQhB5oWDpFQNdZAmpCHHiYDNfllU3zR02RTkriu D2eWQyl7Bvl84sn331hY2pwPTeVMI7VQWjRCFjkSAa KDFyEZS4LWAcuDPmH3h7FpMjvSWvJ1Q0EnGurMPeI2Z3LlAmkJZiI2X6VfAteJWqKQLviHIrRh2pvKOh xGNtdn8cib30TWK6u8IqmKsoROF2QOF3SzTbPr1ngFWdWXCpYZ9lYcImqISbXDSbur95vXuxGVjvtaCp kQ7zFhOeME9fkXavd89oSBJkQD6sxQ9vhy8krtDwGT okiZUalPC6haujIPU9GXDtkhWay1Dsc1rkDfCeybGiP1haH6UzRKViWMPdYREoGcFzfyLlr8Hhv0TgqA ChzZm2x7ibGJCtOKYsfJavr3xaVXD5ZGDlP3W2fZGuf0yxVGgoAJVorLU0cbznHSomNQWdghU4zfduAR ziDRKfxXW4pvneFKqxZLRdRzH6ijklPOdhLRMeUZG4 UQkux125QOG3NSlgWqivEImxFMQrbaPdulQwkLyaYIWnATKiMXktKOFtCEmxHTQjFUSlMjBvbXFgAXyk f4KeosPolXqtPCIfPMp4ieTigovmzZt7pTSsiDogZNIkgXjckM7fWaTpNcMeDRcvoFXgyelpPLhaxwFp IEEuIFxwbGFpblxmMVxmczIwXGxhbmcxMDMzXGhpY2 fbBsZqHKUquNxdQGbrg6AnQYJlIXAsZSxaziRjEAd7grFfADIIY78TO2rxDBeowRQmzediLGfxgxJaNT PHXH9EBQLbAJzMKPDjNGhodQTfzemkBHubhxUlLBhrqbceQBBgXGjuI6ciKeKoLXJgcPcqZGfzs3RuZV UgOBFkGIgbwsJxZEx2fmUcLCFLD8QTAJEdWWsnRTPw ATBdRpMsMWGIEXMfSOafOGJfDZOkPzQksBKtBsYpNzNccVxbsNvxJTjcFaTxPHJyXGhqE1nqIeSpE7By CEKeDmGxkUVqO2jhVpciMMIiuFomiO9eLiCjYqEjAZQrKFXhWBrbRMLqJUGiOrBvyHHtQaVmAyXkzIko uYltBCreCnPuAQUoUBzsG0vfGpBqP3ZmHYNwRwZtdC KiA6stMCozmWRlcmubCYqwycDsLISjxCwpxK4cXpAcSxNdONtgDY5cMLCkU8henEYyEQUqTXLiX6zpGs AueT4nxAbzTQouPeFiJqEcJRuitMKspKErMO9XUrIQKJ3XD71VBHGXQLDIBGEJQm8NMEFqMV1DM7PBCx IcH3XDYTCVJXxAHMHlXCuiKDKzRPOcHqRnBZYYUJgu sHSbpvcxDQwkqrIfDKhxftbtSCIzZJygL2iqJcNlWZDmkPpsHBkyt4VwFPSgFABdUSdvafZjJGz5kgJl WJBSKwUCW9DJSqTMLI0VQNEGCTWNIUZzoGjwnF1vWaLpXoVjRUnmAWGeTBhbeGRbstxlGKurlhXxGMtf rqnoRIJgBVigW4uyFfDuQUBzoYruOTeht9VuKUIlOC CoQVtmsuHrZJx2ljWxUG7ebFmwhY7kXoWbWgIgYOEyHSAyQMfjXDQbOJHqIgSfqIZvJiAtMaBruDzlqB jzJNghKvLiSDOyCWqrI3afAsNhT7InCESuKtDvqHPvV4jdVF6GW2IAGXSDMOOGMpXPWBkXF69IUJCBWM PwYZjOX6AROB6GG8FENJRKRrFJXQGSGDHAZUpOJKGD JAXMHARLJHRDBzgwATIjrYOuFAxht9DzwoVhhBcpXRRjALZiLSPyPIwhHTQnTVOwVnUkmJuttR5hHqJu QaKfGRIvGZOuPGumMSCgSZIoXkKzjLJvRgYvBxSyyGtwpGkkTKszGuXrJPOzIRfrR5iqAtVhW5IbWMOg TkZjwTDkZ1egHZsikFXemaprGPpwxmTxJGUziXxvrR 9gFuJfHyWjEYruCH4hJAFzT0gdvFWfWAXcAMPvO7ngTpKxbJ8ccTmtIHetTlHvNnBjCBwccDYxcOZgGk KVAVAERyEwLr1EJAHeQBbgUSNlWAJqWbPnOTaraSQuhlnhEXkgacKxPAgnfvdqLLDxCJrqU9lmLoLdAH RtcAbcKBwwq8QqNSQfQFJtUBbdozBkVEl5gmVxMWSK C4TUXVJXEVqtEHQPZTjZKQ6YZIxyzHJnwmzmZUuqrkKxGRPxljqeOVUivFVhYTxwu6BtcwUqfHozUAXv HLg3xwMgwrdjlCd2bWPdgCpeVGUpnIpspV1nYvYiEvHmYRbfaDJecvsaCSiuyqHhCAZmNKmanMUataec EZsgouXjGIynzrlzKSBwJFwyF8jxZzTsNOBhgMegVW bau7HtJJMiUKMsDUxjxiRkFLx5bsQaROUTT90KM0mlXLhqgUNsjcodOIqqdkNeARGPRnHVJSneYFHYI6 GMLRNmiQzxqM4wXfRdGgNaJMlfEF7aQJHdZ3anqBSfGVWaRDCzL4ptJqDdjY6diUbdBXovHqTjQvMfRJ gqhUVzhOAPEJ7QK4agmVFlalnwMYkwltVqOClIM8ch bECknnyuKTuumeBtCQzbbaboMLLrHDhjQ5gfXaFiOYRbkBntQHtqt5YtVUTdKTAmHVyqvmDvUNs1qvEc XFbmiCQjPARwHNafJOZwUUQkVhOrMZpicELjtvqfSDokfwGbFZbigbxtUCGqWNpnF9ugMlOjMUGklXux ZOyfd0MnGXMpTIWjUGqezqYaMQq2bwUlWS9mwBaacP 7bZlXlWdEiQGCoFXPgCBmrQWJoRYUwEvKocUMaGvEdIvSbjHukoNosERicTmVdLHZzKIjaS7tkFdLbJ5 AvJVCsRbScyNSkG6paMLmqvNKbnokfLIngusLeUDNYMKuCQ6dCQN4RHL0ZKBSaJESGN4KZRIdIDCeyWH IMNW9ZIZTVKIBnAV3OHAFGEP2LXILRSNDAVBwrVFGQ YEJLDNIdgsGrJMLyMPbpCKBrGTEvMfBigFBfYqZbUcOlfKtzxBquRLdaEjSpZQLaCIsaB3kxWdElO4Yt OMMgHwTpmREvP4xpQDlfyKLbioloBLngdvZnZDWqrNbwsS2yXjFnGwXjTHcuVC2zPJPmC8rkqXYrJBIx TCXkM9ahDdJroO2nsFbeTRqxAuVwWcPvAMwdoTTkrP QgKxNKBUZHYiChWy2FSAeHSWiDN0DBK9AMXsCJSHeXDavtS5BIYP2HH73ZHUZMWSiWYxJUHX1eO4GVJo YVWWBZNPrYCSVptxhcONWsEEQqxZUnKTF9rAIweuZzcYjrnGialZ9mQyPgUeTjTRwucEArsgllHEqacm GfLGDwgZgnaE9iDoGxKdFnGQcoOM9nLJPkW5zkuHOh AHFhDSBzG6hgQkZhjB6sfZugFXllJlWuMfLcOZleiFCtvHWmQKNrHNwzBCIcCAWrIgDfNMjleZCpqlsi HQzmotObXWushzlzYTPhLMtnA9xhRxXxNOQpkRidCHqvg5StTRQnWXUrZStbiiSxUWh2aaAbEYFGUFvP UKqVYZGQJ4NqhSwlbM4jMrWfEfQnRGJxMJRqLQwmNY ViCBCtBwGibJWzBvFtExOnnDkfbXikQQcmCyPiPWLlWZlqN0dpOtKhH3ChTRPjGuSotFKqS7idFCvUEP gBC2kJDTNQWZhET34BPnLQWIMtFYvgGDHoJRMwIsXbaEJuMAVvlgegIYEoRRDimESsFHW1oTYxzsPvgV DevWYlVRWhGEysYJO6fFWscesywSPvndaaCPmlgxLz WLXsSYcaCOVnWNPmRgTtBh5oFDWlEUyuUORwYQNaFwUfpCQoLgZfIxYsrManrDljQXfgBcZzPORhUMja N1pwOiWrM3VzNKAfLuMubNTfJ9yxD9MGEWOLKEgbFONiPWsgXXMvRXWwZhPlXxPDTX0PUAzwgJFjjfin RBxgeaGiQYdayaxlGCUeDXcmY1djCmRyVPTiyAxgOG rxd0BsRIJkITOdTRxstdWxNRi5wdPnKRXYV8TOMZZkQSxjYZLeQCNoZnRkXYAPHDYxBLbwLIPrWATmNc JkxHGgLnWpYzFatBxseLmjDCvzVdVpBTRfBBptO0ckPjVfI1IxGQGiNaDgjXIlR6skCbeaPTNnaWybdW 5cZjFcZnMyMCAgXHBsYWluXGYxXGZzMjBcbGFuZzEw JmAncYkmxPiqODflCtZnVMKwYZhjK1rnSkUfG8RoANFrDxUmhFEwL6mbDFwwjYHvbkmbFSqkaqQfAJEc eUanpQ3mRiAoPtKlPGwoOB3eJRVaF2nwpRAxXHPhBKOhE6nmMdEtjY9xyGezKHzsJbLiNoVdUAddaPWu qLOuSQ9FUkXJQYVsCEbwKUDeSQGeFcEwCRDIRKDSIF lWTXuSCMYkXGxxXUThORHwLaBsfAZlUqTcNwUsmZttmVqgDUknTnMvEYMlYJooR7uuYvRrN3UiLYOuPa JzyHAlE6wcKU4KV12APOEPJBGPWTPLTm5PNTZeWU5LY6YTJcUcO5YURLNYRKeAQCQtGZpxZGEjGJBkZi ZdvNTdUFLwyMjabZ2cJbLlIoPiDLckFU5oZUCmV9tn cJUbZFPiQXToU2jiSmXfgW3ulPtpCYvzFiLvSyBnLGafjFAbiYZoJNXbXQndORNxDELbOkDxADivxEQp paozISbkgcPmLXqeceapFZWjYIyrB2svMzDpSERbgJnlODsby6ZlCDMeATGfYOcrwfFfXUj0gsOiUWMW AUkVLVyXHCELF8JuPQSSESLTKiHVLRSHNHMCPT1RDI PXDsfSVjgJKZJgMeqgH3QGJNhHYtBEQHDFQiirD9HTOP2cqYNpNUYxvbHhg2BbWDZvQCC5XUsxIBiuhM tjlYPyxldnECodtbAyNDMtYBgnZXYdHZHpOsFcCUjvuQOflyknLOimwlFdHMxiwhxfQFFmBDhnR2xfCn BeLOWnpQqoYWnxp5WuDQCnMVBcVLusphXiJCm0pjNw ME6hkVwvmT6cGmNiKrMtOICxFEQsXTzbIZEjYVJvXnUrrUBrWfOwQhKjnDjqtKqeOAuwGtCjSVSvEEpt T9qmMtCnA1ImVTYkUqXznCBeI6iuEC5GJ6ALMTJRNOKZHpMQPjMKT1GWIvWTPH0LDERPJJLKUYAiZXJN G1FKLEPWARnsXIYIQVcAQC7AHRskaYRwhxmzHTozys NfSRWtfqajPVD0q9nixOFgJFVuxWYxAPUxVVadylHeRMQbKbezeejzAQQzNMI0ljLmAPZeYWvzEIArBO rdFl7qrCYtnGasWlDgEUTfs7ayxjSGhtkltHk4m5dmMQZjTrP3tWZvIEscO0mkdeBnrZUyPVTnZQp8aH 84SQEjpN6suUXyBJyubvFaPcP9WAhfAQSnNwX6KAGe uWYaDHYeJ1cxESVnYStiKALvKVscnIWbWOB3qKuyx6J1jVUijYJvvFoxAjFyPtYnIfRWz4MgYZs5mHju W7ViWGBdIuK3gDIxPKKdCObeELLvPCXmpxY1oK50RRahkdQ1bSXzw4Erm26hl017xK2jtZXrEIN9IGXl KBBnsNNrYEAkRYL9YZLrlFCwV0ixTMJaNT4qmpnoZL flPRzlRBBktDN5JMVhaIHhE5QcBTEjKKdcLEYbkoc9TtOtJd8zdWVxhIsvBRhld5apd6ljyUAnCfg5NO YjDiAuDhxlODsaf3Yna8qmQEUucb8sESY2uHAorMkxy0K8sGRdTYOekNQeHREbPJ4obBOdPMWnlH0zyt aaGSZjXvEydxhnCOMgjOobtnMmYm3gwTajLYQ3FWal O6utyD5vXmN3DIjiU7vfwI5sUFd9XMugEZCqyXZ8akR1HDCfeWKoJ3SedI1aWXEnBH9rwbm6f5alWGT3 WCroKNKjXyJ2kmK8PCGtyUYwQAVnqKkjJHjoc438CYD8TfOfZAAos2LfY9FmcJvvP68pgSuvD13zAYLc lGnhsR9gmBlmnQ7qOwWgHjVeQPxjoQifMH1iIMRoG4 oodKYiQRCiZYVcZ5ljWeZciA2vvLsiDLmebzMbHXIaArj4NSWbsXOmPSCbNdv2YXAsYMTlR18fpilqMR I3pD1yt0gjp4ShRTcxONK9YTDob20rNWehqqG5BBgmFg6jSPMcSrx0DBkbPUE4qC== CPT Code(s) (test code = 3357) d7seyHRjHIGcgSYeQlIzIHYsIFNjn5qaYDWyhWPuFfReFsJrOyEyQqxxvQQcXGWfSdRzj6pjj418bSGs c7qbBLYaMfI8mWHzJOZhfQOeW009v0zdu3ezguWcpAQ2ZCTbJRX2OLnbhhIjhcS7TAyofJQqZtL1HAac anZwGWobksIfrgPvHay0NPIuC229JCR0mZuaq3vwVX I4VXZxPWKtQxKvVt3vjWYiN420PXVjKYNZJKVwdQh2VITqucXqayCgrAHUa253U031v0eiNWXyxbMoyX oTnyagb1gbW792VRSsnJTgjeTlIvToEJCjdUMboYT3KUCtRG7iiusvViAmSY5jncgwSjXuVU9tvsa4Ec OuEQ0pzkzbMyLmLDloXNTmuozxBULmj2KfadbsZB7f L5Niu2X8gI3yqPPmIWFnqKUtUmRyAIMxap6mrQEdEGybj1ZhCDW5jmP0zWXuuXLrPPBdPO97Uxxig7Nw OwvyFBV3OSEpvoDhv1Xuc7xeYzRxvnVpV5cwD8LaQSPfEVVwLDQcTkDxvxWlt8Ini0VkmMDzzEj5t0ys YQCfSNHdrZoks0ypZHX9ICIaX5Q6ySRms3jeQMjaVX FtmMN9sgdkPLunPDGckxQ0xevzYSkeEIAyeCD0enezRMtyOGSlSfL8hiaxQEhtJUPwRLB9LKiwe962AI C1JWrxWhjiUBgjOOToefSwarHdoLqtMJYgWDJlVQpoQRBcNVdrVTPwGBEwFzXgzLuzvOkszA7xGkUcAf BxDHghGK4tLHOqP9iunOLjIVGgYKZpB1llYaCqdZ6k dYkuGLcojzTcOWp6FgL4JRPtxHNkNLo1SdZySJMuiVTfqD== CLINICAL HISTORY (test code = 3356) y0rxlRKhAWJnaBTkCaNgOAZpMROcm1lyYFOcxEZjLhEfTlClUeVaYfjyhJTrAFKcZbJly1ufh966zDCj e5gdJWTgHpK5xTZrYUYprUWpM328x5coz2meqvIyrZO4XVLlIRX3ITlhtlJciuG4LZlmkBPfKjT9OLzv jmMzEVmbwvXiraXpIsw4ACAjY766TTG9bVeme7rnDQ Q3CFRaDHYmRaCvWb7rgUEaM724XRWfKRBJMXZfbUb7YOFmvsUaklHwwIEBv112X693b8meCHSvfwBqqA rKazalw5mlQ607SGFzjUTtumTyWnKeTWZsrDQwdMJ2ADGjUJ4ibhxvFrVpJZ2kmhiyBnUtXC0fecv6Mf ObAL6arzspElDtZSerGNZdgwtiTYBqj8YjkcyyMH4r X3Bkb9K5xP4hfWUhQNFgaGMrOzRuKREtuh3doVUlOQfqi8SwXYZ3sjO2mCTuaUJwABVrHV29Ztavz9Yn LhvqOFL2TFAsydKve9Qug8ztPbPljhIkY6msR2JgAWYvDLWjPOVuKwDaobYgf1Hhm5YlhTByvJb7y7gv JQCiEPEomCxlg1zyQCX2ZAFbK3Z2bHXmu4inGVlkNJ SfwCB0byopUSylNAWwqyA2enkdAPymIIPxrGN4mnfkDWqnZIOeZxH3rwfpQVdiDISoJPK9WXibm533UW U3EVgePyqbDGkjZRQhsqOmsoXziDwlTEFnLMVwGPxgUMHoPUygGZAnFRBvYnRysNkiyKfsbX6xSdOeFt IdUYloEZ7lLUTtC5fjrBAjSHZrCECrD2vzWdEcuD2ynRygHIheaqSrVSwitJI8XO4me0vuICbuRKB2 SPECIMEN SOURCE (test code = 3377) w2zuzBXoSDZtzLTxWrVkGGLjVZAdu6gfLDOpkVTdIjPgRsHeYaByJpdvmZEoDBQaJyBcu1tzh823nBZd w6yrXNGrIuM0hCLkYCHltNEyJ700x3ycr1tykkBnaTC1PYLnVUH2YYsisbBqbvT0FJgfeGVdZtG7MJoc qfJeCSnrrgKlyaXaMoa9LSGcH811LJQ1tUyvp4jfIQ M9FIBvOQWpFdEqFn6ofQRpB743HADsPFYQAZSfwPv8IOUbkmVrvyZqpRUBt792Y256m9ecEWCvrpNeiS nCwttfp2jrT594BRVutXCgkfWoItNbXIVxsHWnqEM3SUAyXF4dcxtrFgYnGT6uvgztMdQjPP0rwyo8Ng JiBE1nicemOyPoVWjkDOOhmswyDDGkx7CpnwphPE2k X6Bhw4H5kQ3hpTJkYPRpgORlKbJxZKJcmj5kgEAtLVfms0FyEAI1lyO9tIUykWSwGZQaUP95Pzael3Do XnziEVV6FEFlyzEci3May3neMlFwluJxW3oiY9WmMZRwHITxXUKwQeFoozZek6Wyc2YrvXMawGp1n9xl ZIKhZRDkfCkpg5jsSKU3JSZfP4S7xSJtc2gsRMfpRC XdoAC4kxshXXpjYNBjujK6kazxUOdzLLSuhAE9rxzvNPjuDKDxEfA7jchcXIhqTOSaXNU5MIywm644GU K1HVcyXtbvKCokQOUjvpPgmpWgzEkcKBViFOJpNFnhQLTaAXqvBWFqCNEmKyQuqNwhwXtueU7gAyIsTb MeDTliWC8yPVMeC0eagXTyVSXwRCAgF1scTeFqoD0k kLziWQdbqgZaCVYvRVB0eJ0pmGRdyIgaOWDzYmbznRJ1SwUYYcUKewCkTHojfBphTASkVeqmdXT4JoOB BkAEPM3lx66kM7OrsNIxEuDtvB9hc5bklCHrkS== GROSS DESCRIPTION (test code = 3366) m2xkqCSfPAUcoNZxJfBgAYPfSGTkw9ahQEClkTRxZuCwChRsGeWgYwlcqPHvLEAxLkPse7xkv987rHYv b0wdKZGsWfK2rRWmALLbvVVwD805HCQjUHdqn0pqq8TfUMSxmQDam6M9ELIIjifhmOm9pCjoF42nm3V4 KtqaJ3tdYRKoSQvgLXJwDSmtzFLxRPG6CFDeMAD1IX zitiRyxjW2KEguuOBzQkC4ZOd5i3ziyWsmLLGwJAC0n4zyTHddavGlEH4xdn4fnJh4l1dgobYuRFTzNK YtnQNRQGAiY6PajGvcCh2jrFf1pJleRyfePBK6Ohr6GO0jpf82iuy7wWyxKHVuvlfnEpS0NPaqCYAylw dcUOg6UVozEPYuxOygFLyqNEPfzbyhDNwdKGGknIgv LVwnQUYkZvswGZzyCPOmLZI6PQper834TMP0MSnzz3hgc1ocxPZvLsr0SJEyQgCpZfgsJOiko9Yvx2tl DBThen5qKDL2kXJycBjln2U3xYWoLUDsbKPfwqZeAYFyMrL5VUpdKE8ahc41CLRlVET8lv3ijBQcuLcw mrIgjGCeZBzfA9MeTGBnn375NUFuJ7WdTBEhq5Y3re EvEdHaHEIktWQ1xxY0EZPuBUn3iTIlnsP3ytJgbHSiZ6vrmM49KcWhiZCnL3TdzQ63UxQupLNtN7EnzZ 87JvQltCLgK4BcjG71RzXfxZXtRTLjcGEpFb7jwVIuwWKxk0AhsIUsULutH98lq052VUEfshHwP3fnzW FpblxwbGFpblxmMFxmczIwXHFsXHBsYWluXGYwXGZz GwDqdNeexP7aJnRqHrXkVHCDyWSxT8MiXBDjzeIzLHUxgZAbTLMvbgR0qQGpCHNvHVB1iqYksKjajV6a ThUhByYsYFOqETNgvOHdZYvlxOyhuEydMHSifGaiprBaivNxXF6gIGFoJ1Gdj7Hvq09wfzOlSgMrVbfy BTJljRFxUGEqSERaO9NyepQvPLtxKHCxqc6ivWklIO owTwOlDCLuJlF7i32tG3qhQRpfLQWlXO60BAiiRI27AXbcWR8oCSArJPTzZ0QlM8H4EFXhWuLwhGd0lF QpILZmaaIcA3LySJWjvQVdMXBmyklbcNpps3ExAMBbHBorAP12pkX2bCocmGUqimAfo4FttTy7fUJaCV epMTKboR0uiL0nR2Myj6N0tVUfLZRwTTZskdsvZVBx Rj3iDyVvZZx9ATJiaL1jLl9vgSYlaL7qmARpJAarMTDem1MmlWKnhVNktbHeaJ9wEMdwGIFhTJ32TVsh SB24PWspRE3gBTMgTBSiR7EaW2O3HBOaOtGcioZsJ9FhXDGjzZKsKEFvwqkclWiix2KzERSpAGhtCH02 jdX6fSvsaKZgdqTgx0TjsGb8nQHyFNflCPUojN9tlA 0aV4Rkl6N2oUQuHzBtGQgkVNTgfZDtSYKkCYYuC1SvehYnIZffRBEsor9xvJsqYRxoFhHkCIDmFsvqa0 OvcNJkMiuzyJU1ZjWsnjXrYgQszSMaBxGnvQBxPoFmI85rCZwduqPdNESvLZ2kCDhckjWrrMcusjH7RV 0bkIywkzO0iAWarECwQpDwR62kudXaGNoxvKPlMIDc DHKyxEGdePF3QIBiiI3noP16whUutqViNXRiUWE3LLVZZM7xYA5PW6ZyAIDhVUkcEVBeIXGtOsZivYIb fQ== MICROSCOPIC DESCRIPTION (test code = 3371) r9rqqGSbUJTzwSUhJiRmBAYwEVAqa4ntXUBlvDKgJmGmLbCuKxPoQirylCAiSPKoInUym8xtu377yCUj r1ngVTQeOzG4oDEuLDBfdGByU369IGLbPGazz2qlm9XuOGLaeVKvu2N9GESIbyxxqTf5qZrrI45lj2C0 RkmwN4obKEQiQTydHPFfYCewaSRxAPA1WIXxYNT4TP jplcDirxT2SZrqtYSwCjI3CXl8k8nzjUchSVYcYCU1h7jbLXwvtiKyPM7jir7vpTe8b2ggrrUyZRPzUW WjzYKIXBQmG4RkhQveJm1wtNc3kFsxGfpsLLS7Fjd5TX7ahh50cap6cXvcFONafxahYfB8HEdeUVFhmc nwUXl7FXxuQBYoxIujQQsjYCQtfwkrHBxsULMoiAxv TLbyTIJxXjrfSTfqSAMbPSD4PPekg305OTO5RFsdy0nsr8ezgOFiNfk7QERoTsXhFqxjSLfha6Hix8ju QRFxyf8kEHY9iGIvsBnnt1U3hLDqWBJwiOMjkzZsFDSoog94vJAooYTkxQYlud1flyRbiUPzbEXeEQZ3 hEJscgDkBTVjpJCqTVPxUA8pxLPrSIQtkL3sbvvvPK SlTvMycbxjIONjhHymsyWwVn5ssZmgHUO9QVicG4fyhF0bTgI2JSncN3umbQ9tZBf7MTidyFE6FCCmxX 7jQV9tcwnrj7bxIdHnMG5lcmmwc2pdVrPtSR8ilwy9h1umYoNiXH3ayyhnk0gwOqLnPBzlITYacrpnBR Wly1CfmwzhQVIkx5PrS7BjnUspN42stVhpJ64hSZDh vTagxT3jpDreaP3mPdAnHmUkGKdjsVsszNFmnricXJncwzKmOBAwUIuoEWUcVUYeRnFrOKTlNl9udJXm LlxwYXJccGFyfQ== SPECIAL STUDIES (test code = 3376) k1mcpBHgLMJsi3tdAPKkpKNcQdVtRnUuMvWtMsuycNHeOMvybiPeZFgfy5EzO2CjJvKkOWcpcgBvNAGm HfzvazivDBIwKJX8dgIiOLOhPMwwDDEgLYxgDa6cuZHdxZwiTiUfIEDnz3hptlRZhpjxjQm6w1dsQERj IyU9mRKgWPrrU5gkwmCnmKOyX8CjnGTavRi5q0noOs CfGlY0qBKtJWxpB4zawoSdbMUeKDInIRj8mZ11DDMbwH4znYVwKChzoaMrLdT5STrpVKWgViY8MITlbS FiXRZoM7ebZROlVOmyPZCkKHflfXAwRKZ3uOcnl7A0pZXmjLSkjBcbGiKhCjUfPmOHm9ZfZJm5kTlyV3 ZnBPMiGfA1gDEwUGJoJGzqHMXvXGWvffO9sPmcsaYf h72pyDNnQGBbYWQeQiOqiHduJZDbAMLHe4ZhwFycCRU1xCr9fJlpCrfyTUK6Lgk7OT3mtl46kgt5dFym NYBcniauVeK0TPjrIBPtkqcuZGx0DEpvYZValLO0QJNnqAQvR5EaMBPeSJ5syfq4QDL1MKsbHCAnXoO1 GGQojLOqRJGvxLofHEucp303YGV9MqYjGJ7hB9Mkp6 N2nQ7hcPUpJNCncERoDkRdRVCirp4apBAaLRjde5SpBHG4zzW9oHNouHYxYKVqWZ08Fnxqg7LbToxjj6 QsZ91emPI5CXqiz7wqIR0hDpX1iiNsYOigj1unvI3lXcP7IWosPG2rPJ2fKCJacY2gjozeCZKdPjQarn scYFWpdMhucyLpGw3qxAwvFWV0LAcnH2jjvX8aBhU2 LNdxK7dsvQ0uLPp6EHwvkRZ3NZFoiI2zGX0ygcdog5wxMXrzUOtoEBLpbcO9cyL1UYWxoZZjG4UisD8x SMRoUD3rgrxqg0iuHLX9WUhvVOZwCLE8TyNbWUQlq2Kkntp2RvVtl5ZumMUfZKdjY87sy551TLGubtDf D6ueeCTztdybmRTjelyaIKwdavG7JGGnAXRwMHsfDC LjJEAtNlMmbHDoXjInPoNhaAklcAexOOqwXsDeFWWdSIlmB0riLsPtG3UaSFFkBcMrQIhkHScswRBkvD JqgPG5kL2cDG4wHNVnuZPcF0IcKGDsnrUtkYYeUGH1mZIgeYTbWI5pMWcftVOyj7utq9KmD1oaoYhjcZ D1UP7aPMYlTBYiAIuuz1EkgJ8nBlglaRWczekcNBuv ozBjYVpgppxlFXVmXBcwP2mdZqDaENPhsPvzHFsqd0BxPKRtWMTuRqcedpZhZQp9thPcQVAhbonsRGMj pTatnQ5yJbCfVeVtJvriFU3xGCMmD4qzyINbHUBbPYHdP2qkOqJaxO9zoCxtRXrsGlLhAfZzPgWQr151 xp8iQOBphOYkqlPMpDFlaP9aBAaxAHycIIjhtKWwEC tcn6mdYJPcy9v3bXVjRYQyrtStf4bpDKunmhOkYMPceCZduWYyVJTde32aPVfjrKbxtCncRXMcl2LczE mqi9ClNkMzRXngu1EbZ29uiJJcfVEzcPsbYSWciyZzMIEud47ry1lfTEQnPxN9kAMasTA4rTXpwIHyj0 EgdVboZFQqu9ubDEWnon0kqmizgVEqs2ZxkR2epzbb DSqrhYGxpcPwUGUij7j9aUHgSLEaCAOhBIzssFy8ETXzg472li7uldS8fIItCAS7CQbxFXZgSDMqkhVu QZYheSQumXXoPEOyXBxrDHGtJCBjYzSkmJJfAkZgItVlwRdsqKrfFUflOzZtHBChKJnzX0qlLaWtP2Ge XFUvHoCuzMHaE5uxcJWpQCHqIIyyQXMwBTRaIrEhqY RyGwUuJdUfsQyxlDtrDUxiDqFjDCFfBJeuC0phDzDhX5LvRBFcGvPuTExaxVGyipzvGWxperQwFRxcdq xcCQPcQKdiW8gyRbBcCVBxkMnwAMczc7EpCMYgXVSeEobvtvLmVUs3zhKvKLKgpmvtjKZplimyICxhow IvCDlhapocDQBeQObkA8ekUnHmCPBpaUbsSBeeq7Qh CEUyYGSjKzxzgaHxXPzbbSXnw6iam8IwJ8tbaMtmfZV8EFJuX4jslYKmjYK5IIF7rT7gRKsllqNgGTYp a9FqNIHkATLmQqI2vA8rLQZ5UvKOcCplQUNkZSmxMHShZROiQwKxtMWjPqFeDfJmsJisxXjsDTduWlBj SUEyLZndN7mvQdFcU6PxSDTpQtTplFliAGuaNHv8Rv myiMPduekhTCstpzQvBLwjralvPDDmBCeqL9tqMwCiXATnqSkbKYbnp0NcDBAkQZYyNwwhwxRcKHUcUV FbmKYteXKCAI58KSYzOSNguCxsiW6jcGMABYBzwjA6l4Z9NUetJFBuHZa5DPypfaOcMOYoqD1eUTAcJA 2lVAt5ujTgOMLhw2YtQX5oGNRxxKKxEIF0PVCcz9Qx E4Gxu8EhWMYqPUEcnl4oghTuIjGKsEVzIVGxeb74NATdEO8eN6lkNRMzBDAizkAntOWzz4BcXRRfnWX7 tXYlZN3DKwWPt64uZCFeTZETxgHnKJNglTckrPM3ejX7vN9cAcKJaCXbTgFTLZcbrjHeLDElqq0qtaVy UFYwYTCbu6HglIHyzGRpswObF9Phz8LgRWAkqo19GZ cagBRgvz46VC0eA6Iwf2KshO6wXAgjVYDcu9AjkZOdtBFqHLSjy1OoC6hkwkmoKNeutDSvlJ5tJWWsZY b0NLYqt0IxDZKhb6CcYxWkivMsNMBuZJJuYKDjjE25NOB7dPxlwAmvacSrNG2tBFCqxgEsQFZxPESqcX 5ePQmtkxUwTPMpvwF6r9W9LMgrPEYyxjQlNzyyUJD7 cjLetwS6dCNzQ5adlwcfIUrhMSDmd6GctN5quRFYbCBez2IxuAWrhNYOlGOrRK9cjcIvTK4sZFS2UVuv AWMYLIEvKVvxVDRgGYF5OUnbKtfhEGU0tzSuVZNyi5SxJHviG3leE55mzXdkpBd1pIQzmKsbfZPxlXXk RIQrugD7l1D2KUVdx8UuuccvTHHiHWltFQQxEJXeJz ViyKQrHtIfInUqrKjvcRuiUjmeWlUpECQvWQqoJ3yaDfTuUfIvEcgkOCF9zI== [id number] 10:58:00Surgical Pathology Report Case: [id number] Authorizing Provider: Melo Wilcox, Collected: 01/10/2020 02:18 PM Ordering Location: [address] Received: 01/10/2020 04:20 PM Service [...] RACQUEL, MALIGNANCY Signing Pathologist Direct Phone Line: [phone] gabriella signed by Jin Rodgers MD on 01/11/2020 at 10:58 [id number] Hematemesis A. Pyloric ulcer biopsy; B. Antral [...] were evaluated along with the test tissue. [facility] of the patients sample show appropriate stainin g. Internal positive and negative controls when available are evaluated Immunohi stochemistry technical testing was performed at [facility] , Pathology Laboratory where it was developed [...] 450 K/CU MM MPV (test code = 24893-2) 9.2 fL 9.4-12.4 L nRBC (test code [...] 0-1 H Lab Interpretation (test code = 64445-9) Abnormal [facility] W/PLT COUNT & AUTO [id number] 09:55:00* Test Item Value Reference Range Interpretation [...] = 2801) 2 % 0-1 H POC-Glucose [id number] 09:22:00* Test Item Value Reference Range Interpretation Comments POC-Glucose Meter (test code = 1538) 87 mg/dL 70-110 : TESTED AT [facility] [address] [facility], [address]: Auto Parker/Practice Support Specialist ID = [id number] for Paramio, Jane Lab Interpretation (test code = 86265-0) Normal [facility] [id number] 09:22:00* Test Item Value Reference Range Interpretation Comments POC-GLUCOSE METER (JONNAKER) (test code = 1538) 87 mg/dL 70-110 : TESTED AT [facility] [address] [place] [place], [address]: Auto Parker/Practice Support Specialist ID = [id number] for Jane Dai 2D Echo W/Doppler(CW/PW/Color)2020-01-11 09:15:17Ejection FractionSLEH ECHO HEARTLAB MKCKESSON CPACSInterface, External Ris In - 01/11/2020 9:15 AM CDTTransthoracic Echocardiography Report (TTE) Demographics Patient Name CHARLOTTE LANDA Date of Study 01/10/2020 KIKE Gender Male Visit Number [id number] Race Unknown Room Number 1419 Number Date [...] Velocity: 2.47 m/s TR Gradient: 24.31 mmHg [facility] Metabolic [id number] 08:49:00* Test Item Value Reference Range Interpretation [...] 95 mg/dL 70-105 Calcium (test code = 45597-1) 8.0 mg/dL 8.4-10.2 L EGFR (test code = 23178-0) 16 mL/min/1.73 sq m ESTIMATED GFR IS NOT ACCURATE CREATININE CLEARANCE IN PREDICTING GLOMERULAR FILTRATION RATE. ESTIMATED GFR IS NOT APPLICABLE FOR DIALYSIS PATIENTS. ADRIENNE (test code = ADRIENNE) Auto Parker ID - JUAN MIGUEL L Lab Interpretation (test code = 37563-1) [facility] [id number] 08:49:00* Test Item Value Reference Range Interpretation [...] GFR IS NOT APPLICABLE FOR DIALYSIS PATIENTS. Auto Parker VARUN - JUAN MIGUEL [id number] 04:26:00* Test Item Value Reference Range Interpretation Comments Phosphorus (test code = 2777-1) 2.1 mg/dL 2.3-4.7 L ADRIENNE (test code = ADRIENNE) Auto Parker ID - JUAN MIGUEL L Lab Interpretation (test code = 61328-2) [facility]2020[facility] 04:26:00* Test Item Value Reference Range Interpretation Comments PHOSPHORUS (BEAKER) (test code = 604) 2.1 mg/dL 2.3-4.7 L Auto Parker VARUN BULLARD LPOCT-GLUCOSE [id number] 22:19:00* Test Item Value Reference Range Interpretation Comments POC-GLUCOSE METER (BEAKER) (test code = 1538) 125 mg/dL 70-110 H : Notified RN/MD: TESTED AT [facility] [address] [facility], [address]: Auto Parker/Practice Support Specialist ID = [id number] for SARAN LANDA POCT-GLUCOSE [id number] 16:05:00* Test Item Value Reference Range Interpretation Comments POC-GLUCOSE METER (BEAKER) (test code = 1538) 65 mg/dL 70-110 L : TESTED AT [facility] [address] [facility], [address]: Auto Parker/Practice Support Specialist ID = [id number] for GERARDO BUTT ECG 12 [id number] 12:25:35Interface, External Ris In - 01/10/2020 12:25 PM CDTVentricular Rate 157 BPMAtrial Rate 314 BPMQRS Duration 70 msQ-T Interval 312 msQTC Calculation(Bazett) 504 msP [place] -65 degreesR [place] 38 degreesT [place] 239 degreesAtrial flutter with 2:1 A-V conductionST & T wave abnormality, consider inferior ischemiaAbnormal ECGWhen compared with ECG of 08-JAN-2020 18:56,Atrial flutter has replaced Sinus rhythmVent. rate has increased BY 62 BPMST now depressed in Inferior leadsST now depressed in Anterolateral leadsT wave inversion now evident in Inferior leadsNonspecific T wave abnormality now evident in Anterolateral leadsConfirmed by MD DEVLIN RAYMOND ([id number]) on 01/10/2020 12:25:32 [facility] 2020-01[facility]10 12:20:00Destiney Ness RN 01/10/2020 [...] 99 Resp: 15 Temp: SpO2: 100% [facility] [id number] 07:48:00* Test Item Value Reference Range Interpretation Comments POC-GLUCOSE METER (BEAKER) (test code = 1538) 76 mg/dL 70-110 : TESTED AT [facility] [address] [facility], [address]: Auto Parker/Practice Support Specialist ID = [id number] for GERARDO BUTT [id number] 07:27:00* Test Item Value Reference Range Interpretation Comments PHOSPHORUS (BEAKER) (test code = 604) 2.3 mg/dL 2.3-4.7 Auto Parker ID - STEPHANIE MBASIC METABOLIC [id number] 07:27:00* Test Item Value Reference Range Interpretation [...] GFR IS NOT APPLICABLE FOR DIALYSIS PATIENTS. Auto Parker ID - STEPHANIE MCBC W/PLT COUNT & AUTO [id number] 06:04:00* Test Item Value Reference Range Interpretation [...] code = 2801) 1 % 0-1 POCT-GLUCOSE [id number] 23:57:00* Test Item Value Reference Range Interpretation Comments POC-GLUCOSE METER (BEAKER) (test code = 1538) 109 mg/dL 70-110 : TESTED AT [facility] [address] [facility], [address]: Auto Parker/Practice Support Specialist ID = [id number] for LAURA HERRERA POCT-GLUCOSE [id number] 18:13:00* Test Item Value Reference Range Interpretation Comments POC-GLUCOSE METER (BEAKER) (test code = 1538) 109 mg/dL 70-110 : TESTED AT [facility] [address] [facility], [address]: Auto Parker/Practice Support Specialist ID = [id number] for OSCAR DOYLE Troponin [id number] 16:44:00* Test Item Value Reference Range Interpretation Comments Troponin I (test code = 65863-6) 0.01 ng/mL 0-0.03 ADRIENNE (test code = [...] failure, acidosis, acute neurological disease, and persistent tachyarrhythmia.Auto Parker ID - BS Lab Interpretation (test code = 26643-4) Normal [facility] CenterTROPONIN [id number] 16:44:00* Test Item Value Reference Range Interpretation [...] acidosis, acute neurological disease, and per sistent tachyarrhythmia.Auto Parker ID - BSHemoglobin and kncqwnxdkx5589-65-53 16:08:00* Test Item Value Reference Range Interpretation Comments Hemoglobin (test code = 786-4) 9.5 13.7- 17.5 GM/DL L Hematocrit (test code = 4544-3) 29.5 % 40.1-51 L ADRIENNE (test code = ADRIENNE) Auto Parker ID - [id number] Lab Interpretation (test code = 37309-0) Abnormal [facility] CenterHEMOGLOBIN AND [id number] 16:08:00* Test Item Value Reference Range Interpretation Comments HEMOGLOBIN (BEAKER) (test code = 410) 9.5 GM/DL 13.7-17.5 L HEMATOCRIT (BEAKER) (test code = 411) 29.5 % 40.1-51.0 L Auto Parker ID - [id number]-GLUCOSE [id number] 14:22:00* Test Item Value Reference Range Interpretation Comments POC-GLUCOSE METER (BEAKER) (test code = 1538) 95 mg/dL 70-110 : TESTED AT [address], [address]: Auto Parker/Practice Support Specialist ID = [id number] for OSCAR DOYLE POCT-GLUCOSE [id number] 13:21:00* Test Item Value Reference Range Interpretation Comments POC-GLUCOSE METER (BEAKER) (test code = 1538) 68 mg/dL 70-110 L : Verify w/ Lab Draw: Will Repeat Test: TESTED AT [address], [address]: Auto Parker/Practice Support Specialist ID = [id number] for OSCAR DOYLE Potassium-Stat [id number] 11:15:00* Test Item Value Reference Range Interpretation Comments Potassium (test code = 2823-3) 3.1 meq/L 3.6-5.5 L Lab Interpretation (test code = 80257-3) Abnormal [facility] CenterPOTASSIUM-STAT [id number] 11:15:00* Test Item Value Reference Range Interpretation Comments POTASSIUM (BEAKER) (test code = 379) 3.1 meq/L 3.6-5.5 L BASIC METABOLIC [id number] 05:13:00* Test Item Value Reference Range Interpretation [...] GFR IS NOT APPLICABLE FOR DIALYSIS PATIENTS. Auto Parker ID - STEPHANIE [id number] 04:56:00* Test Item Value Reference Range Interpretation Comments PHOSPHORUS (BEAKER) (test code = 604) 3.2 mg/dL 2.3-4.7 Auto Parker ID - STEPHANIE MCBC W/PLT COUNT & AUTO [id number] 04:17:00* Test Item Value Reference Range Interpretation [...] 2801) 1 % 0-1 Hepatitis B surface [id number] 00:16:00* Test Item Value Reference Range Interpretation Comments HBsAg Screen (test code = 5195-3) Nonreactive Nonreactive ADRIENNE (test code = ADRIENNE) Specimen is considered negative for HBsAg. Lab Interpretation (test code = 15959-5) Normal [facility] CenterHEPATITIS B SURFACE [id number] 00:16:00* Test Item Value Reference Range Interpretation Comments HEPATITIS B SURFACE ANTIGEN (2) (BEAKER) (test code = 2585) Nonreactive Nonreactive Specimen is considered negative for HBsAg.POCT-GLUCOSE [id number] 21:38:00 * Test Item Value Reference Range Interpretation Comments POC-GLUCOSE METER (BEAKER) (test code = 1538) 72 mg/dL 70-110 : TESTED AT [facility] [address] [facility], [address]: Auto Parker/Practice Support Specialist ID = [id number] for ULLATTDARIUSZ ANTUNEZAK SARS-CoV2/RT-PCR (Asymptomatic ONLY)2020-01-08 20:40:00* Test Item Value Reference Range Interpretation Comments SARS-COV2/RT-PCR (test code = 77374-0) Not Detected Not Detected, N egative SARS-COV-2 PERFORMING LAB (test code = 23456-5) [facility] ADRIENNE (test code = ADRIENNE) Negative results [...] of the Act. Fact Sheet for Healthcare Providers:https://www.Reflektion/Documents/Xpert%20Xpress%20SARS%20CoV-2/Fact%2 0Sheets/302-3842%16CYIG-IKH-6%20HEALTHCARE%20PROVIDERS%20FACT%20SHEET.pdf Fact Sheet for Healthcare Patients:https://www.Reflektion/Documents/Xpert%20Xpress%20SARS%20CoV-2/Fact%20 Sheets/3023801%87AVSQ-FJC-1%20PATIENT%20FACT%20SHEET.pdf Performing Laboratory:[facility] [place] [address] [facility] ([facility])2020-01-08 20:40:00* Test Item Value Reference Range Interpretation Comments SARS-COV2/RT-PCR (test code = 4062517) Not Detected Not Detected, N egative SARS-COV-2 PERFORMING LAB (test code = 7210591) [facility] Negative results do not preclude SARS-CoV-2 infection and should not be used as the sole basis for patient management decisions. Negative results must be combin ed with clinical observations, patient history, and epidemiological information. A false negative result may occur if a specimen is improperly collected, transp orted or handled.The limit of detection for this assay is 250 copies/mL.This [facility] S CoV-2 test is a rapid, real-time [...] of the Act.Fact Sheet for Healthcare Providers:ht tps://www.Reflektion/Documents/Xpert%20Xpress%20SARS%20CoV-2/Fact%20Sheets/302 3802%60RWVI-PBS-1%20HEALTHCARE%20PROVIDERS%20FACT%20SHEET.pdfFact Sheet for Heal thcare Patients:https://www.Reflektion/Documents/Xpert%20Xpress%20SARS%20CoV-2/ Fact%20Sheets/3023801%80FJNA-BLD-5%20PATIENT%20FACT%20SHEET.pdfPerforming Labor atory:[facility], [place] [address]XCWWO METABOLIC [id number] 20:37:00* Test Item Value Reference Range Interpretation [...] GFR IS NOT APPLICABLE FOR DIALYSIS PATIENTS. Auto Parker ID - XBUkudzfvwe0901-36-08 20:34:00* Test Item Value Reference Range Interpretation Comments Magnesium (test code = 63679-8) 1.9 mg/dL 1.6-2.6 ADRIENNE (test code = ADRIENNE) Auto Parker ID - BS Lab Interpretation (test code = 03784-0) Normal [facility] CenterMAGNESIUM2020-06-08 20:34:00* Test Item Value Reference Range Interpretation Comments MAGNESIUM (BEAKER) (test code = 627) 1.9 mg/dL 1.6-2.6 Auto Parker ID - BSCBC W/PLT COUNT & AUTO [id number] 20:19:00* Test Item Value Reference Range Interpretation [...] % 0-1 H CHEST SINGLE (PORTABLE)2020-01-08 11:34:00 [place] [address] Patient Name: CHARLOTTE LANDA MR #: [id number] : 1940 Age/Sex: 79/M Req #: [id number] Adm Physician: Ordered by: HORTENCIA GARCIA MD, MD Report #: [id number] Location: ER Room/Bed: Procedure: [id number] DX/CHEST SIN GLE (PORTABLE) Exam Date: 01/08/20 [...] Count (test code = 6690-2) 15.41 4.8-10.8 [facility]ballBlood erythrocytes automated count (number/volume)2020-01-08 11:03:00* Test Item Value Reference Range Interpretation Comments Red Blood Count (test code = 789-8) 3.61 4.3-5.7 [facility] TomballBlood hemoglobin measurement (moles/volume)2020-01-08 11:03:00* Test Item Value Reference Range Interpretation Comments Hemoglobin (test code = 52965-8) 10.7 14.0-18.0 [facility] TomballAutomated blood hematocrit (volume fraction)2020-01-08 11:03:00* Test Item Value Reference Range Interpretation Comments Hematocrit (test code = 4544-3) 33.5 38.2-49.6 [facility] TomballAutomated erythrocyte mean corpuscular scdflt5455-01-43 11:03:00* Test Item Value Reference Range Interpretation Comments Mean Corpuscular Volume (test code = 787-2) 92.8 81-99 [facility] TomballAutomated erythrocyte mean corpuscular hemoglobin (mass per erythrocyte)2020-01-08 11:03:00* Test Item Value Reference Range Interpretation Comments Mean Corpuscular Hemoglobin (test code = 785-6) 29.6 28-32 [facility] TomballAutomated erythrocyte mean corpuscular hemoglobin concentration measurement (mass/volume)2020-01-08 11:03:00* Test Item Value Reference Range Interpretation Comments Mean Corpuscular Hemoglobin Concent (test code = 786-4) 31.9 31-35 [facility] TomballRDW CzqLj-Qvp1428-98-08 11:03:00* Test Item Value Reference Range Interpretation Comments Red Cell Distribution Width (test code = 57191-5) 14.0 11.7 -14.4 [facility] TomballAutomated blood platelet count (count/volume)2020-01-08 11:03:00* Test Item Value Reference Range Interpretation Comments Platelet Count (test code = 777-3) 213 140-360 [facility] TomballAutformerly [facility] blood segmented neutrophil count as percentage of total vhziqufpcp9146-37-17 11:03:00* Test Item Value Reference Range Interpretation Comments Neutrophils (%) (Auto) (test code = 43782-6) 73.9 38.7-80.0 [facility] TomballAutomated blood lymphocyte count as percentage ot total ozwhquzidl7803-22-31 11:03:00* Test Item Value Reference Range Interpretation Comments Lymphocytes (%) (Auto) (test code = 736-9) 16.9 18.0-39.1 [facility] TomballAutomated blood monocyte count as percentage of total cipovhffwo6529-58-39 11:03:00* Test Item Value Reference Range Interpretation Comments Monocytes (%) (Auto) (test code = 5905-5) 6.3 4.4-11.3 [facility] TomballAutomated blood eosinophil count as percentage of total lczxevrsjx9616-70-40 11:03:00* Test Item Value Reference Range Interpretation Comments Eosinophils (%) (Auto) (test code = 713-8) 0.5 0.0-6.0 [facility] TomballAutomated blood basophil count as percentage of total iaebtpgozi0970-88-73 11:03:00* Test Item Value Reference Range Interpretation Comments Basophils (%) (Auto) (test code = 706-2) 0.8 0.0-1.0 [facility] TomballFluoroscopic procedure less than one hour xwiugyim1937-14-58 11:03:00* Test Item Value Reference Range Interpretation Comments IM GRANULOCYTES % (test code = IM GRANULOCYTES %) 1.6 0.0- 1.0 [facility] TomballAutomated blood neutrophil count 2020-01-08 11:03:00* Test Item Value Reference Range Interpretation Comments Neutrophils # (Auto) (test code = 751-8) 11.4 2.1-6.9 [facility] TomballBlood lymphocytes count (number/volume) 2020-01-08 11:03:00* Test Item Value Reference Range Interpretation Comments Lymphocytes # (Auto) (test code = 20106-9) 2.6 1.0-3.2 [facility] TomballBlnew [facility]m medical [facility] monocytes automated count (number/volume)2020-01-08 11:03:00* Test Item Value Reference Range Interpretation Comments Monocytes # (Auto) (test code = 742-7) 1.0 0.2-0.8 [facility] TomballAutomated blood eosinophil count 2020-01-08 11:03:00* Test Item Value Reference Range Interpretation Comments Eosinophils # (Auto) (test code = 711-2) 0.1 0.0-0.4 [facility] TomballAutomated blood basophil count (count/volume)2020-01-08 11:03:00* Test Item Value Reference Range Interpretation Comments Basophils # (Auto) (test code = 704-7) 0.1 0.0-0.1 [facility] TomballFluoroscopic procedure less than one hour anbewavb1003-61-06 11:03:00* Test Item Value Reference Range Interpretation Comments Absolute Immature Granulocyte (auto (mojgan t code = Absolute Immature Granulocyte (auto) 0.25 0-0.1 [facility] TomballProthrombin time (PT) in platelet poor plasma by coagulation sipjp1591-02-43 11:03:00* Test Item Value Reference Range Interpretation Comments Prothrombin Time (test code = 5902-2) 15.7 11.9-14.5 [facility] TomballINR in Platelet poor plasma by Coagulation hcegd7539-98-55 11:03:00* Test Item Value Reference Range Interpretation Comments Prothromb Time International Ratio (test code = 6301-6) 1.17 Oral Anticoagulant Therapy INR Values:1. Low Intensity Therapy 1.5 - 2.02 . Moderate Intensity Therapy 2.0 - 3.03. High Intensity Therapy(1) 2.5 - 3. 54. High Intensity Therapy(2) 3.0 - 4.05. Panic Value INR > 5.0 [facility] TomballActivated partial thromboplastin time (aPTT) in platelet poor plasma by coagulation hkmge9513-45-67 11:03:00* Test Item Value Reference Range Interpretation Comments Activated Partial Thromboplast Time (test code = 00733-2) 39.1 23.8-35.5 [facility] Centererum or plasma sodium measurement (moles/volume)2020-01-08 11:03:00* Test Item Value Reference Range Interpretation Comments Sodium Level (test code = 2951-2) 133 136-145 [facility] Centererum or plasma potassium measurement (moles/volume)2020-01-08 11:03:00* Test Item Value Reference Range Interpretation Comments Potassium Level (test code = 2823-3) 4.7 3.5-5.1 [facility] Centererum or plasma chloride measurement (moles/volume)2020-01-08 11:03:00* Test Item Value Reference Range Interpretation Comments Chloride Level (test code = 2075-0) 94 98-107 [facility] Centererum or plasma carbon dioxide, total measurement (moles/volume)2020-01-08 11:03:00* Test Item Value Reference Range Interpretation Comments Carbon Dioxide Level (test code = 2028-9) 27 22-29 [facility] Centererum or plasma anion sbq6562-06-56 11:03:00* Test Item Value Reference Range Interpretation Comments Anion Gap (test code = 05380-4) 16.7 8-16 [facility] Centererum or plasma urea nitrogen measurement (mass/volume)2020-01-08 11:03:00* Test Item Value Reference Range Interpretation Comments Blood Urea Nitrogen (test code = 3094-0) 37 7-26 [facility] Centererum or plasma creatinine measurement (mass/volume)2020-01-08 11:03:00* Test Item Value Reference Range Interpretation Comments Creatinine (test code = 2160-0) 6.38 0.72-1.25 [facility] Centererum or plasma urea nitrogen/creatinine mass nwswm0958-75-33 11:03:00* Test Item Value Reference Range Interpretation Comments BUN/Creatinine Ratio (test code = 3097-3) 6 6-25 [facility] TomballEstimated glomerular filtration rate (GFR) okzrpqaijssoz0594-58-47 11:03:00* Test Item Value Reference Range Interpretation Comments Estimat Glomerular Filtration Rate (test code = 279065739) 9 >60 Ranges were taken from the National Kidney Disease Education Program and the [facility] Kidney Foundation literature.Reference ranges:60 or greater: Ecddum59-80 ( for 3 consecutive months): Chronic kidney disease 15 or less: Kidney failureHCA Houston Healthcare TomballGlucose iebtsotdqmz6936-56-55 11:03:00* Test Item Value Reference Range Interpretation Comments Glucose Level (test code = ADW4243) 86 74-118 [facility] Centererum or plasma calcium measurement (mass/volume)2020-01-08 11:03:00* Test Item Value Reference Range Interpretation Comments Calcium Level (test code = 64982-6) 9.0 8.4-10.2 [facility] Centererum or plasma total bilirubin measurement (mass/volume)2020-01-08 11:03:00* Test Item Value Reference Range Interpretation Comments Total Bilirubin (test code = 1975-2) 0.3 0.2-1.2 [facility] TomballFluoroscopic procedure less than one hour deostrbj2204-07-05 11:03:00* Test Item Value Reference Range Interpretation Comments Aspartate Amino Transf (AST/SGOT) (test code = Aspartate Amino Transf (AST/SGOT)) 9 5-34 [facility] Centererum or plasma alanine aminotransferase measurement (enzymatic activity/volume)2020-01-08 11:03:00* Test Item Value Reference Range Interpretation Comments Alanine Aminotransferase (ALT/SGPT) (test code = 1742-6) < 6 0-55 [facility] Centererum or plasma protein measurement (mass/volume)2020-01-08 11:03:00* Test Item Value Reference Range Interpretation Comments Total Protein (test code = 2885-2) 6.8 6.5-8.1 [facility] Centererum or plasma albumin measurement (mass/volume)2020-01-08 11:03:00* Test Item Value Reference Range Interpretation Comments Albumin (test code = 1751-7) 1.6 3.5-5.0 [facility] TomballPlasma globulin measurement (mass/volume) 2020-01-08 11:03:00* Test Item Value Reference Range Interpretation Comments Globulin (test code = 57169-7) 5.2 2.3-3.5 [facility] Centererum or plasma albumin/globulin mass ikbtl5469-00-01 11:03:00* Test Item Value Reference Range Interpretation Comments Albumin/Globulin Ratio (test code = 1759-0) 0.3 0.8-2.0 [facility] Centererum or plasma alkaline phosphatase measurement (enzymatic activity/volume)2020-01-08 11:03:00* Test Item Value Reference Range Interpretation Comments Alkaline Phosphatase (test code = 6768-6) 64 40-150 [facility] Centererum or plasma creatine kinase measurement (enzymatic activity/volume)2020-01-08 11:03:00* Test Item Value Reference Range Interpretation Comments Creatine Kinase (test code = 2157-6) 17 30-200 [facility] Centererum or plasma creatine kinase MB measurement (mass/volume)2020-01-08 11:03:00* Test Item Value Reference Range Interpretation Comments Creatine Kinase MB (test code = 23605-0) 1.00 0-5.0 [facility] TomballTroponin I measurement by highly sensitive enzyme kizrcojxctz0384-51-42 11:03:00* Test Item Value Reference Range Interpretation Comments Troponin I (test code = 09759-3) 0.026 0-0.300 [facility] Centererum or plasma lipase measurement (enzymatic activity/volume)2020-01-08 11:03:00* Test Item Value Reference Range Interpretation Comments Lipase (test code = 3040-3) 19 8-78 [facility] Centererum or plasma creatine kinase measurement (enzymatic activity/volume)2020-01-08 11:03:00* Test Item Value Reference Range Interpretation Comments Creatine Kinase (test code = 2157-6) 17 30-200 [facility] Centererum or plasma creatine kinase MB measurement (mass/volume)2020-01-08 11:03:00* Test Item Value Reference Range Interpretation Comments Creatine Kinase MB (test code = 55167-3) 1.00 0-5.0 [facility] TomballTroponin I measurement by highly sensitive enzyme rjrxehcjidi7244-32-30 11:03:00* Test Item Value Reference Range Interpretation Comments Troponin I (test code = 95180-5) 0.026 0-0.300 [facility] Centererum or plasma lipase measurement (enzymatic activity/volume)2020-01-08 11:03:00* Test Item Value Reference Range Interpretation Comments Lipase (test code = 3040-3) 878 [facility] TomballCapillary blood glucose measurement by glucometer (mass/volume)2020-01-04 14:39:00* Test Item Value Reference Range Interpretation Comments Bedside Glucose (test code = 68421-5) 150 70-120 Meter ID: [id number] [facility] CampusCapillary blood glucose measurement by glucometer (mass/volume)2020-01-04 14:39:00* Test Item Value Reference Range Interpretation Comments Bedside Glucose (test code = 02564-6) 150 70-120 Meter ID: [id number] [facility] CampusBlood leukocytes automated count (number/volume)2020-01-04 05:50:00* Test Item Value Reference Range Interpretation Comments White Blood Count (test code = 6690-2) 9.97 4.8-10.8 [facility] TomballBlood erythrocytes automated count (number/volume)2020-01-04 05:50:00* Test Item Value Reference Range Interpretation Comments Red Blood Count (test code = 789-8) 3.43 4.3-5.7 [facility] TomballBlood hemoglobin measurement (moles/volume)2020-01-04 05:50:00* Test Item Value Reference Range Interpretation Comments Hemoglobin (test code = 35746-5) 10.3 14.0-18.0 [facility] TomballAutomated blood hematocrit (volume fraction)2020-01-04 05:50:00* Test Item Value Reference Range Interpretation Comments Hematocrit (test code = 4544-3) 31.4 38.2-49.6 [facility] TomballAutomated erythrocyte mean corpuscular atpqvu3569-99-05 05:50:00* Test Item Value Reference Range Interpretation Comments Mean Corpuscular Volume (test code = 787-2) 91.5 81-99 [facility] TomballAutomated erythrocyte mean corpuscular hemoglobin (mass per erythrocyte)2020-01-04 05:50:00* Test Item Value Reference Range Interpretation Comments Mean Corpuscular Hemoglobin (test code = 785-6) 30.0 28-32 [facility] TomballAutomated erythrocyte mean corpuscular hemoglobin concentration measurement (mass/volume)2020-01-04 05:50:00* Test Item Value Reference Range Interpretation Comments Mean Corpuscular Hemoglobin Concent (test code = 786-4) 32.8 31-35 [facility] TomballRDW UbmCe-Qsb7972-45-04 05:50:00* Test Item Value Reference Range Interpretation Comments Red Cell Distribution Width (test code = 24924-3) 13.8 11.7 -14.4 [facility] TomballAutomated blood platelet count (count/volume)2020-01-04 05:50:00* Test Item Value Reference Range Interpretation Comments Platelet Count (test code = 777-3) 217 140-360 [facility] TomballAutomated blood segmented neutrophil count as percentage of total urvlzcrioj4552-97-47 05:50:00* Test Item Value Reference Range Interpretation Comments Neutrophils (%) (Auto) (test code = 02819-2) 69.3 38.7-80.0 [facility] TomballAutomated blood lymphocyte count as percentage ot total cqglclxfln3476-76-37 05:50:00* Test Item Value Reference Range Interpretation Comments Lymphocytes (%) (Auto) (test code = 736-9) 19.1 18.0-39.1 [facility] TomballAutomated blood monocyte count as percentage of total txxwopmxub4478-92-76 05:50:00* Test Item Value Reference Range Interpretation Comments Monocytes (%) (Auto) (test code = 5905-5) 7.9 4.4-11.3 [facility] TomballAutomated blood eosinophil count as percentage of total qafcbnsvkb5528-21-64 05:50:00* Test Item Value Reference Range Interpretation Comments Eosinophils (%) (Auto) (test code = 713-8) 1.5 0.0-6.0 [facility] TomballAutomated blood basophil count as percentage of total mfpzbzskgm9676-29-72 05:50:00* Test Item Value Reference Range Interpretation Comments Basophils (%) (Auto) (test code = 706-2) 0.6 0.0-1.0 [facility] TomballFluoroscopic procedure less than one hour urcmrvmf8112-39-51 05:50:00* Test Item Value Reference Range Interpretation Comments IM GRANULOCYTES % (test code = IM GRANULOCYTES %) 1.6 0.0- 1.0 [facility] TomballAutomated blood neutrophil count 2020-01-04 05:50:00* Test Item Value Reference Range Interpretation Comments Neutrophils # (Auto) (test code = 751-8) 6.9 2.1-6.9 [facility] TomballBlood lymphocytes count (number/volume) 2020-01-04 05:50:00* Test Item Value Reference Range Interpretation Comments Lymphocytes # (Auto) (test code = 76224-2) 1.9 1.0-3.2 [facility] TomballBlood monocytes automated count (number/volume)2020-01-04 05:50:00* Test Item Value Reference Range Interpretation Comments Monocytes # (Auto) (test code = 742-7) 0.8 0.2-0.8 [facility] TomballAutomated blood eosinophil count 2020-01-04 05:50:00* Test Item Value Reference Range Interpretation Comments Eosinophils # (Auto) (test code = 711-2) 0.2 0.0-0.4 [facility] TomballAutomated blood basophil count (count/volume)2020-01-04 05:50:00* Test Item Value Reference Range Interpretation Comments Basophils # (Auto) (test code = 704-7) 0.1 0.0-0.1 [facility] TomballFluoroscopic procedure less than one hour nbjizjvf7695-62-13 05:50:00* Test Item Value Reference Range Interpretation Comments Absolute Immature Granulocyte (auto (mojgan t code = Absolute Immature Granulocyte (auto) 0.16 0-0.1 [facility] Centererum or plasma sodium measurement (moles/volume)2020-01-04 05:50:00* Test Item Value Reference Range Interpretation Comments Sodium Level (test code = 2951-2) 137 136-145 [facility] Centererum or plasma potassium measurement (moles/volume)2020-01-04 05:50:00* Test Item Value Reference Range Interpretation Comments Potassium Level (test code = 2823-3) 4.2 3.5-5.1 [facility] Centererum or plasma chloride measurement (moles/volume)2020-01-04 05:50:00* Test Item Value Reference Range Interpretation Comments Chloride Level (test code = 2075-0) 102 98-107 [facility] Centererum or plasma carbon dioxide, total measurement (moles/volume)2020-01-04 05:50:00* Test Item Value Reference Range Interpretation Comments Carbon Dioxide Level (test code = 2028-9) 26 22-29 [facility] Centererum or plasma anion rcy5743-11-97 05:50:00* Test Item Value Reference Range Interpretation Comments Anion Gap (test code = 07602-2) 13.2 8-16 [facility] Centererum or plasma urea nitrogen measurement (mass/volume)2020-01-04 05:50:00* Test Item Value Reference Range Interpretation Comments Blood Urea Nitrogen (test code = 3094-0) 21 7-26 [facility] Centererum or plasma creatinine measurement (mass/volume)2020-01-04 05:50:00* Test Item Value Reference Range Interpretation Comments Creatinine (test code = 2160-0) 3.93 0.72-1.25 [facility] Centererum or plasma urea nitrogen/creatinine mass fdvbb7658-08-90 05:50:00* Test Item Value Reference Range Interpretation Comments BUN/Creatinine Ratio (test code = 3097-3) 5 6-25 [facility] TomballEstimated glomerular filtration rate (GFR) dyovkxfhdjgzb9837-32-12 05:50:00* Test Item Value Reference Range Interpretation Comments Estimat Glomerular Filtration Rate (test code = 916360856) 15 >60 Ranges were taken from the National Kidney Disease Education Program and the [facility] Foundation literature.Reference ranges:60 or greater: Mxnfoj05-38 ( for 3 consecutive months): Chronic kidney disease 15 or less: Kidney failureHCA Houston Healthcare TomballGlucose rzfiqlxiaup2463-66-07 05:50:00* Test Item Value Reference Range Interpretation Comments Glucose Level (test code = LVJ1586) 91 74-118 [facility] Centererum or plasma calcium measurement (mass/volume)2020-01-04 05:50:00* Test Item Value Reference Range Interpretation Comments Calcium Level (test code = 66688-3) 7.4 8.4-10.2 [facility] Centererum or plasma magnesium measurement (mass/volume)2020-01-04 05:50:00* Test Item Value Reference Range Interpretation Comments Magnesium Level (test code = 75052-6) 1.8 1.3-2.1 [facility] Centererum or plasma total bilirubin measurement (mass/volume)2020-01-04 05:50:00* Test Item Value Reference Range Interpretation Comments Total Bilirubin (test code = 1975-2) 0.2 0.2-1.2 [facility] TomballFluoroscopic procedure less than one hour cpmyvmqt3162-46-52 05:50:00* Test Item Value Reference Range Interpretation Comments Aspartate Amino Transf (AST/SGOT) (test code = Aspartate Amino Transf (AST/SGOT)) 6 5-34 [facility] Centererum or plasma alanine aminotransferase measurement (enzymatic activity/volume)2020-01-04 05:50:00* Test Item Value Reference Range Interpretation Comments Alanine Aminotransferase (ALT/SGPT) (test code = 1742-6) < 6 0-55 [facility] Centererum or plasma protein measurement (mass/volume)2020-01-04 05:50:00* Test Item Value Reference Range Interpretation Comments Total Protein (test code = 2885-2) 5.4 6.5-8.1 [facility] Centererum or plasma albumin measurement (mass/volume)2020-01-04 05:50:00* Test Item Value Reference Range Interpretation Comments Albumin (test code = 1751-7) 1.3 3.5-5.0 [facility] TomballPlasma globulin measurement (mass/volume) 2020-01-04 05:50:00* Test Item Value Reference Range Interpretation Comments Globulin (test code = 30673-8) 4.1 2.3-3.5 [facility] Centererum or plasma albumin/globulin mass rywyt6139-87-33 05:50:00* Test Item Value Reference Range Interpretation Comments Albumin/Globulin Ratio (test code = 1759-0) 0.3 0.8-2.0 [facility] Centererum or plasma alkaline phosphatase measurement (enzymatic activity/volume)2020-01-04 05:50:00* Test Item Value Reference Range Interpretation Comments Alkaline Phosphatase (test code = 6768-6) 52 40-150 [facility] Centererum or plasma magnesium measurement (mass/volume)2020-01-04 05:50:00* Test Item Value Reference Range Interpretation Comments Magnesium Level (test code = 47829-2) 1.8 1.3-2.1 [facility] Centererum or plasma magnesium measurement (mass/volume)2020-01-04 05:50:00* Test Item Value Reference Range Interpretation Comments Magnesium Level (test code = 14003-7) 1.8 1.3-2.1 [facility]ballBlnew [facility] platelets count by estimate (number/volume)2020-01-03 05:40:00* Test Item Value Reference Range Interpretation Comments Platelet Estimate (test code = 85094-9) ADEQUATE [facility]ballPlateboise [facility] bgzerjoguj3291-50-36 05:40:00* Test Item Value Reference Range Interpretation Comments Platelet Morphology Comment (test code = 91127-0) NORMAL NO EDTA PLT [facility]PSD[facility] morphology 2020-01-03 05:40:00* Test Item Value Reference Range Interpretation Comments Red Cell Morphology Comment (test code = 6742-1) NORMAL [facility] platelets count by estimate (number/volume)2020-01-03 05:40:00* Test Item Value Reference Range Interpretation Comments Platelet Estimate (test code = 44352-3) ADEQUATE [facility] wolvdtyywe9124-54-05 05:40:00* Test Item Value Reference Range Interpretation Comments Platelet Morphology Comment (test code = 28335-1) NORMAL NO EDTA PLT [facility] morphology 2020-01-03 05:40:00* Test Item Value Reference Range Interpretation Comments Red Cell Morphology Comment (test code = 6742-1) NORMAL [facility] platelets count by estimate (number/volume)2020-01-03 05:40:00* Test Item Value Reference Range Interpretation Comments Platelet Estimate (test code = 98528-0) ADEQUATE [facility]ballPl[facility]bo[facility] mbirgzzfou0247-20-47 05:40:00* Test Item Value Reference Range Interpretation Comments Platelet Morphology Comment (test code = 97956-7) NORMAL NO EDTA PLT CLUMPSCHI [facility] morphology 2020-01-03 05:40:00* Test Item Value Reference Range Interpretation Comments Red Cell Morphology Comment (test code = 6742-1) NORMAL [facility] TomballFluoroscopic procedure less than one hour gfejaqmm1601-05-19 16:00:00* Test Item Value Reference Range Interpretation [...] complexity tests.Testing performed by [facility] [address] [phone] Director: Blake Webber M.D.CLIA # [id number] [facility] Fluoroscopic procedure less than one hour ekbukkhp9731-36-44 16:00:00* Test Item Value Reference Range Interpretation [...] complexity tests.Testing performed by [facility] [address] [phone] Director: Blake Webber M.D.CLIA # [id number] [facility] Healthcare Medical Centererum or plasma creatine kinase measurement (enzymatic activity/volume)2020-01-01 16:30:00* Test Item Value Reference Range Interpretation Comments Creatine Kinase (test code = 2157-6) 15 30-200 [facility] Centererum or plasma creatine kinase MB measurement (mass/volume)2020-01-01 16:30:00* Test Item Value Reference Range Interpretation Comments Creatine Kinase MB (test code = 27319-3) 0.90 0-5.0 [facility] TomballTroponin I measurement by highly sensitive enzyme lhdtgyzoafc5507-67-17 16:30:00* Test Item Value Reference Range Interpretation Comments Troponin I (test code = 98034-7) 0.015 0-0.300 [facility] Centererum hepatitis B virus surface antibody assay by radioimmunoassay (units/volume)2020-01-01 16:30:00* Test Item Value Reference Range Interpretation Comments Hepatitis B Surface Antibody, Quant (test code = 5194-6) 117.1 Immunity>9.9 Status of Immunity Anti-HBs Level Inconsistent with Immunity 0.0 - 9.9Consistent with Immunity >9.9[facility] plasma hepatitis B virus surface antigen detection by bitcdqrdmii6573-50-69 16:30:00* Test Item Value Reference Range Interpretation Comments Hepatitis B Surface Antigen (test code = 5196-1) Negative Negat tabathaChildren[facility] Medical Center Planoerum or plasma hepatitis B virus core IgM antibody detection by sgkvgipbjtb4026-05-86 16:30:00* Test Item Value Reference Range Interpretation Comments Hepatitis B Core IgM Antibody (test code = 48649-1) Negative Ne gative Performed at: [facility] [id number] Director: Gregor Hernandez MD, Phone: [phone] [facility] Healthcare Medical Centererum hepatitis B virus surface antibody assay by radioimmunoassay (units/volume)2020-01-01 16:30:00* Test Item Value Reference Range Interpretation Comments Hepatitis B Surface Antibody, Quant (test code = 5194-6) 117.1 Immunity>9.9 Status of Immunity Anti-HBs Level Inconsistent with Immunity 0.0 - 9.9Consistent with Immunity >9.9[facility] Hospitalerum or plasma hepatitis B virus surface antigen detection by dqmanplnssf9598-35-41 16:30:00* Test Item Value Reference Range Interpretation Comments Hepatitis B Surface Antigen (test code = 5196-1) Negative Negat tabatha [facility] Centererum or plasma hepatitis B virus core IgM antibody detection by fmbohisiubh3335-36-98 16:30:00* Test Item Value Reference Range Interpretation Comments Hepatitis B Core IgM Antibody (test code = 43070-2) Negative Ne gative Performed at: [employer] [facility] [address] [place], [place] [id number] Director: Gregor Hernandez MD, Phone: [phone] Medical Center [facility] hepatitis B virus surface antibody assay by radioimmunoassay (units/volume)2020-01-01 16:30:00* Test Item Value Reference Range Interpretation Comments Hepatitis B Surface Antibody, Quant (test code = 5194-6) 117.1 Immunity>9.9 Status of Immunity Anti-HBs Level Inconsistent with Immunity 0.0 - 9.9Consistent with Immunity >9.9[facility] Hospitalerum or plasma hepatitis B virus surface antigen detection by qidbonfznpv7475-22-94 16:30:00* Test Item Value Reference Range Interpretation Comments Hepatitis B Surface Antigen (test code = 5196-1) Negative Negat tabatha [facility] hemoglobin drjwdjgrv8560-48-48 17:43:00* Test Item Value Reference Range Interpretation Comments Stool Occult Blood (test code = 2335-8) POSITIVE NEGATIVE [facility] gastrointestinal hemoglobin ficdjmuqv7097-17-23 17:43:00* Test Item Value Reference Range Interpretation Comments Stool Occult Blood (test code = 2335-8) POSITIVE NEGATIVE [facility] gastrointestinal hemoglobin wiyyvebow3352-28-89 17:43:00* Test Item Value Reference Range Interpretation Comments Stool Occult Blood (test code = 2335-8) POSITIVE NEGATIVE [facility] TomballProthrombin time (PT) in platelet poor plasma by coagulation tyfwl9409-64-98 17:04:00* Test Item Value Reference Range Interpretation Comments Prothrombin Time (test code = 5902-2) 15.0 11.9-14.5 [facility] TomballINR in Platelet poor plasma by Coagulation pqmvc8513-36-14 17:04:00* Test Item Value Reference Range Interpretation Comments Prothromb Time International Ratio (test code = 6301-6) 1.11 Oral Anticoagulant Therapy INR Values:1. Low Intensity Therapy 1.5 - 2.02 . Moderate Intensity Therapy 2.0 - 3.03. High Intensity Therapy(1) 2.5 - 3. 54. High Intensity Therapy(2) 3.0 - 4.05. Panic Value INR > 5.0 [facility] TomballActivated partial thromboplastin time (aPTT) in platelet poor plasma by coagulation bdhxc0277-80-18 17:04:00* Test Item Value Reference Range Interpretation Comments Activated Partial Thromboplast Time (test code = 28597-5) 30.3 23.8-35.5 [facility] Centererum or plasma thyrotropin measurement by detection limit <= 0.005 miu/l (units/volume)2019-12-26 11:59:00* Test Item Value Reference Range Interpretation Comments Thyroid Stimulating Hormone (TSH) (test code = 19268-4) 3.270 0.350-4.940 Performed at [facility]: 0.350 - 5.500 uIU[facility] or plasma thyrotropin measurement by detection limit <= 0.005 miu/l (units/volume)2019-12-26 11:59:00* Test Item Value Reference Range Interpretation Comments Thyroid Stimulating Hormone (TSH) (test code = 08436-8) 3.270 0.350-4.940 Performed at [facility]: 0.350 - 5.500 [facility]IU/[facility] Hospitalerum or plasma thyrotropin measurement by detection limit <= 0.005 miu/l (units/volume)2019-12-26 11:59:00* Test Item Value Reference Range Interpretation Comments Thyroid Stimulating Hormone (TSH) (test code = 22747-7) 3.270 0.350-4.940 Performed at [facility]: 0.350 - 5.500 [facility] HospitalPhosphorus tlmoxiognfc3300-60-16 05:25:00* Test Item Value Reference Range Interpretation Comments Phosphorus Level (test code = YWO7148) 3.8 2.3-4.7 [facility] TomballPhosphorus vilmzqzukis7545-77-48 05:25:00 * Test Item Value Reference Range Interpretation Comments Phosphorus Level (test code = PDV0796) 3.8 2.3-4.7 [facility] TomballPhosphorus nbodijbmmgw9295-24-02 05:25:00 * Test Item Value Reference Range Interpretation Comments Phosphorus Level (test code = PEA2950) 3.8 2.3-4.7 [facility] TomballG I OFHPP3300-17-14 15:31:00 [facility] [address] [address] Patient Name: CHARLOTTE LANDA MR #: [id number] : 1940 Age/Sex: 79/M Req #: [id number] Adm Physician: STEVEN HAWKINS MD Ordered by: RAYMOND STAPLETON MD Report #: [id number] Location: [facility] Room/Bed: [place] [address] Procedure: [id number] NM/G I BLEED Exam Date: Exam Time: REPORT STATUS: Signed ADDENDUM #1 R esults were given to Dr. Raymond Stapleotn by phone at 3:45 pm on 12/24/2019. [...] 154 Transcribed By: HARRIS on 12/24/19 1536 GAMES MANAGER Y TO: RAYMOND STAPLETON MD Fluoroscopic procedure less than one hour tfgmdgsz4734-31-28 07:50:00* Test Item Value Reference Range Interpretation Comments Differential Total Cells Counted (test code = Differen tial Total Cells Counted) 100 [facility] blood neutrophils/100 leukocytes 2019-12-23 07:50:00* Test Item Value Reference Range Interpretation Comments Neutrophils % (Manual) (test code = 85842-8) 73 40-74 [facility] blood band neutrophils form/100 mecnbghaiw8447-20-28 07:50:00* Test Item Value Reference Range Interpretation Comments Band Neutrophils % (test code = 764-1) 2 [facility] blood lymphocytes/100 leukocytes 2019-12-23 07:50:00* Test Item Value Reference Range Interpretation Comments Lymphocytes % (Manual) (test code = 737-7) 19 19-48 [facility] blood monocytes/100 leukocytes 2019-12-23 07:50:00* Test Item Value Reference Range Interpretation Comments Monocytes % (Manual) (test code = 744-3) 6 3.4-9.0 [facility] TomballFluoroscopic procedure less than one hour nnzswpji6108-36-80 07:50:00* Test Item Value Reference Range Interpretation Comments Differential Total Cells Counted (test code = Differen tial Total Cells Counted) 100 [facility] blood neutrophils/100 leukocytes 2019-12-23 07:50:00* Test Item Value Reference Range Interpretation Comments Neutrophils % (Manual) (test code = 31273-8) 73 40-74 [facility] neutrophils form/100 wklvnvgucd9138-34-11 07:50:00* Test Item Value Reference Range Interpretation Comments Band Neutrophils % (test code = 764-1) 2 [facility] blood lymphocytes/100 leukocytes 2019-12-23 07:50:00* Test Item Value Reference Range Interpretation Comments Lymphocytes % (Manual) (test code = 737-7) 19 - [facility] blood monocytes/100 leukocytes 2019-12-23 07:50:00* Test Item Value Reference Range Interpretation Comments Monocytes % (Manual) (test code = 744-3) 6 3.4-9.0 [facility] TomballFluoroscopic procedure less than one hour ljvrzkae3530-75-84 07:50:00* Test Item Value Reference Range Interpretation Comments Differential Total Cells Counted (test code = Ying tial Total Cells Counted) 100 [facility] blood neutrophils/100 leukocytes 2019-12-23 07:50:00* Test Item Value Reference Range Interpretation Comments Neutrophils % (Manual) (test code = 46042-7) 73 40-74 [facility] blood band neutrophils form/100 odgsiqnbcc2491-16-57 07:50:00* Test Item Value Reference Range Interpretation Comments Band Neutrophils % (test code = 764-1) 2 [facility] blood lymphocytes/100 leukocytes 2019-12-23 07:50:00* Test Item Value Reference Range Interpretation Comments Lymphocytes % (Manual) (test code = 737-7) 19 [facility] blood monocytes/100 leukocytes 2019-12-23 07:50:00* Test Item Value Reference Range Interpretation Comments Monocytes % (Manual) (test code = 744-3) 6 3.4-9.0 [facility] TomballClostridium difficile A and B toxin assay 2019-12-20 18:13:00* Test Item Value Reference Range Interpretation Comments Clostridium Difficile Toxin A & B (test code = 840808931) NEGATIVE NEGATIVE Testing on stool aspirate specimens is outside bindery cutter operator claims since specime n type not validated on this assay.[facility] Clostridium difficile A and B toxin htfaa1948-48-45 18:13:00* Test Item Value Reference Range Interpretation Comments Clostridium Difficile Toxin A & B (test code = 545242820) NEGATIVE NEGATIVE Testing on stool aspirate specimens is outside bindery cutter operator claims since specime n type not validated on this assay.[facility] Clostridium difficile A and B toxin xnieu2128-68-48 18:13:00* Test Item Value Reference Range Interpretation Comments Clostridium Difficile Toxin A & B (test code = 814568483) NEGATIVE NEGATIVE Testing on stool aspirate specimens is outside bindery cutter operator claims since specime n type not validated on this assay.[facility] TomballManual blood eosinophil count as percentage of total zviwiolotq4710-22-21 06:15:00* Test Item Value Reference Range Interpretation Comments Eosinophils % (Manual) (test code = 714-6) 1 0-7 [facility] eosin[facility] count as percentage of total qgbsbgygfm4611-40-87 06:15:00* Test Item Value Reference Range Interpretation Comments Eosinophils % (Manual) (test code = 714-6) 1 0-7 [facility] TomballManual blood eosinophil count as percentage of total rpegbaovck7183-66-98 06:15:00* Test Item Value Reference Range Interpretation Comments Eosinophils % (Manual) (test code = 714-6) 1 0-7 [facility] TomballBlood hypochromia detection by light erlceezdqr9184-00-04 05:25:00* Test Item Value Reference Range Interpretation Comments Hypochromasia (test code = 728-6) MODERATE [facility] TomballBlood hypochromia detection by light pqymcoqfye2203-96-23 05:25:00* Test Item Value Reference Range Interpretation Comments Hypochromasia (test code = 728-6) MODERATE [facility]ballBlnew [facility] hypochromia detection by light tyfloelyeo5826-47-01 05:25:00* Test Item Value Reference Range Interpretation Comments Hypochromasia (test code = 728-6) MODERATE [facility] Centerpecimen source identification of body ilbgh9645-35-18 16:09:00* Test Item Value Reference Range Interpretation Comments Body Fluid Type (test code = 10901-3) SYNOVIAL [facility] TomballEvaluation of color of body fluid 2019-12-14 16:09:00* Test Item Value Reference Range Interpretation Comments Body Fluid Color (test code = 6824-7) RED PINKHCA [facility] Healthcare TomballDetermination of appearance of body oigmy9466-48-32 16:09:00* Test Item Value Reference Range Interpretation Comments Body Fluid Appearance (test code = 9335-1) TURBID [facility] body fluid leukocytes count (number/volume)2019-12-14 16:09:00* Test Item Value Reference Range Interpretation Comments Body Fluid WBC (test code = 6743-9) [address] [facility] body fluid erythrocytes count (number/volume)2019-12-14 16:09:00* Test Item Value Reference Range Interpretation Comments Body Fluid RBC (test code = 6741-3) [address] [facility] body fluid neutrophils/100 jsluqqmxia0089-61-56 16:09:00* Test Item Value Reference Range Interpretation Comments Body Fluid Neutrophils (test code = 22003-4) 13 [facility] TomballBody fluid lymphocyte xrtay3008-90-35 16:09:00* Test Item Value Reference Range Interpretation Comments Body Fluid Lymphocytes (test code = 27572594) 32 [facility] TomballBody fluid monocyte ocgdl1008-34-38 16:09:00* Test Item Value Reference Range Interpretation Comments Body Fluid Monocytes (test code = 22739-2) 55 [facility] TomballTotal cell qbqkp7527-83-95 16:09:00* Test Item Value Reference Range Interpretation Comments Body Fluid Total Cells Counted (test code = 37332-1) 100 [facility] Centerpecimen source identification of body hnqnk6475-65-62 16:09:00* Test Item Value Reference Range Interpretation Comments Body Fluid Type (test code = 08878-8) SYNOVIAL [facility] Healthcare TomballEvaluation of color of body fluid 2019-12-14 16:09:00* Test Item Value Reference Range Interpretation Comments Body Fluid Color (test code = 6824-7) RED [facility]INKH[facility] Healthcare TomballDetermination of appearance of body wgtcw9343-88-52 16:09:00* Test Item Value Reference Range Interpretation Comments Body Fluid Appearance (test code = 9335-1) TURBID [facility] body fluid leukocytes count (number/volume)2019-12-14 16:09:00* Test Item Value Reference Range Interpretation Comments Body Fluid WBC (test code = 6743-9) 16761 [facility] body fluid erythrocytes count (number/volume)2019-12-14 16:09:00* Test Item Value Reference Range Interpretation Comments Body Fluid RBC (test code = 6741-3) 58159 [facility] body fluid neutrophils/100 ujvrllhffo7282-51-04 16:09:00* Test Item Value Reference Range Interpretation Comments Body Fluid Neutrophils (test code = 18061-0) 13 [facility] TomballBody fluid lymphocyte qtndz1968-60-66 16:09:00* Test Item Value Reference Range Interpretation Comments Body Fluid Lymphocytes (test code = 73613652) 32 [facility] TomballBody fluid monocyte vyskm8703-63-57 16:09:00* Test Item Value Reference Range Interpretation Comments Body Fluid Monocytes (test code = 52121-6) 55 [facility] TomballTotal cell rnomg1715-46-87 16:09:00* Test Item Value Reference Range Interpretation Comments Body Fluid Total Cells Counted (test code = 97723-0) 100 [facility] Centerpecimen source identification of body msonn8806-65-78 16:09:00* Test Item Value Reference Range Interpretation Comments Body Fluid Type (test code = 67624-8) SYNOVIAL [facility]ballEvaluation of color of body fluid 2019-12-14 16:09:00* Test Item Value Reference Range Interpretation Comments Body Fluid Color (test code = 6824-7) RED PINKH[facility] TomballDetermination of appearance of body koclz0069-15-41 16:09:00* Test Item Value Reference Range Interpretation Comments Body Fluid Appearance (test code = 9335-1) TURBID [facility] body fluid leukocytes count (number/volume)2019-12-14 16:09:00* Test Item Value Reference Range Interpretation Comments Body Fluid WBC (test code = 6743-9) 89217 [facility] body fluid erythrocytes count (number/volume)2019-12-14 16:09:00* Test Item Value Reference Range Interpretation Comments Body Fluid RBC (test code = 6741-3) 47407 [facility] body fluid neutrophils/100 ztvvdfccrn6503-79-81 16:09:00* Test Item Value Reference Range Interpretation Comments Body Fluid Neutrophils (test code = 85229-0) 13 [facility] TomballBody fluid lymphocyte yejqt0245-06-37 16:09:00* Test Item Value Reference Range Interpretation Comments Body Fluid Lymphocytes (test code = 25280527) 32 [facility] TomballBody fluid monocyte sxpby9741-33-71 16:09:00* Test Item Value Reference Range Interpretation Comments Body Fluid Monocytes (test code = 50390-1) 55 [facility] TomballTotal cell gewpm1764-39-22 16:09:00* Test Item Value Reference Range Interpretation Comments Body Fluid Total Cells Counted (test code = 18709-5) 100 [facility] TomballBacteria identification in wound by ghvtfox6860-85-47 15:56:00* Test Item Value Reference Range Interpretation Comments Wound Culture (test code = 6462-6) STAPHYLOCOCCUS AUREUS [facility] TomballBacteria identification in wound by rvgjhpy8302-34-46 15:56:00* Test Item Value Reference Range Interpretation Comments Wound Culture (test code = 6462-6) STAPHYLOCOCCUS AUREUS [facility] TomballBacteria identification in wound by tfffris1864-78-64 15:56:00* Test Item Value Reference Range Interpretation Comments Wound Culture (test code = 6462-6) STAPHYLOCOCCUS AUREUS [facility] TomballCHEST SINGLE (PORTABLE)2019-12-14 15:13:00 [place] [address] Patient Name: CHARLOTTE LANDA MR #: [id number] : 1940 Age/Sex: 79/M Req #: [id number] [facility] Physician: Ordered by: ROSIE CH MD Report #: [id number] Location: OR Room/Bed: Procedure: [id number] DX/CHEST SINGLE (PORTABLE) Exam Date: 12/14/19 Exam [...] CH MD Blood poikilocytosis detection by light ejzhuatdkv6889-06-44 14:45:00* Test Item Value Reference Range Interpretation Comments Poikilocytosis (test code = 779-9) SLIGHT [facility]Bl[facility] poikilocytosis detection by light xtvylnkaoj6875-91-11 14:45:00* Test Item Value Reference Range Interpretation Comments Poikilocytosis (test code = 779-9) SLIGHT [facility] poikilocytosis detection by light kpwjlsbddv0609-15-97 14:45:00* Test Item Value Reference Range Interpretation Comments Poikilocytosis (test code = 779-9) [facility]IGHT [facility] MZLAB0611-32-41 15:08:00 [place] [address] Patient Name: CHARLOTTE LANDA MR #: [id number] : 1940 Age/Sex: 79/M Req #: [id number] Adm Physician: Ordered by: TALIA BIRMINGHAM MD Repor t #: [id number] Location: ER Room/Bed : Procedure: [id number] DX/KNEE RIGHT TH REE VIEWS Exam Date: 12/13/19 Exam Time: 1430 REPORT STATUS: Signed EXAMINATION: KN EE RIGHT THREE VIEWS INDICATION: Knee swelling COMPARISON: None FINDINGS: No acute fracture or dislocation. Alignment is anatomic. Small suprapatellar joint effusion. Moderate patellofemoral compartment predom inant tricompartmental degenerative changes. Atherosclerotic arterial calcific ations. IMPRESSION: No acute osseous injury. Small suprapatellar robert int effusion. Moderate degenerative changes. Signed by: Romana Hawkins MD on 12/13/2019 3:09 PM Dictated By: ROMANA HAWKINS MD 08 Transcribed By: HARRIS on 12/13/191508 COPY TO: TALIA BIRMINGHAM MD SHOULDER LEFT WOQBMLDZ9095-75-27 15:07:00 [place] [address] Patient Name: CHARLOTTE LANDA MR #: [id number] : 1940 Age/Sex: 79/M Req #: [id number] Adm Physician: Ordered by: TALIA BIRMINGHAM MD Repor t #: [id number] Location: ER Room/Bed : Procedure: [id number] DX/SHOULDER LEFT COMPLETE Exam Date: 12/13/19 Exam [...] Count (test code = 6690-2) 12.73 4.8-10.8 [facility] TomballBlood erythrocytes automated count (number/volume)2019-12-13 14:33:00* Test Item Value Reference Range Interpretation Comments Red Blood Count (test code = 789-8) 2.45 4.3-5.7 [facility] TomballBlood hemoglobin measurement (moles/volume)2019-12-13 14:33:00* Test Item Value Reference Range Interpretation Comments Hemoglobin (test code = 15659-4) 7.6 14.0-18.0 [facility] TomballAutomated blood hematocrit (volume fraction)2019-12-13 14:33:00* Test Item Value Reference Range Interpretation Comments Hematocrit (test code = 4544-3) 23.5 38.2-49.6 [facility] TomballAutomated erythrocyte mean corpuscular veiefy5746-04-74 14:33:00* Test Item Value Reference Range Interpretation Comments Mean Corpuscular Volume (test code = 787-2) 95.9 81-99 [facility] TomballAutomated erythrocyte mean corpuscular hemoglobin (mass per erythrocyte)2019-12-13 14:33:00* Test Item Value Reference Range Interpretation Comments Mean Corpuscular Hemoglobin (test code = 785-6) 31.0 28-32 [facility] TomballAutomated erythrocyte mean corpuscular hemoglobin concentration measurement (mass/volume)2019-12-13 14:33:00* Test Item Value Reference Range Interpretation Comments Mean Corpuscular Hemoglobin Concent (test code = 786-4) 32.3 31-35 [facility] TomballRDW FprKh-Fxa5969-01-13 14:33:00* Test Item Value Reference Range Interpretation Comments Red Cell Distribution Width (test code = 90375-8) 15.7 11.7 -14.4 [facility] TomballAutomated blood platelet count (count/volume)2019-12-13 14:33:00* Test Item Value Reference Range Interpretation Comments Platelet Count (test code = 777-3) 155 140-360 [facility] TomballAutomated blood segmented neutrophil count as percentage of total zdpbojatqp6109-91-52 14:33:00* Test Item Value Reference Range Interpretation Comments Neutrophils (%) (Auto) (test code = 31431-3) 89.9 38.7-80.0 [facility] TomballAutomated blood lymphocyte count as percentage ot total gulocmhtxl8135-35-41 14:33:00* Test Item Value Reference Range Interpretation Comments Lymphocytes (%) (Auto) (test code = 736-9) 5.3 18.0-39.1 [facility] TomballAutomated blood monocyte count as percentage of total fndvwpzaay1474-85-81 14:33:00* Test Item Value Reference Range Interpretation Comments Monocytes (%) (Auto) (test code = 5905-5) 3.1 4.4-11.3 [facility] TomballAutomated blood eosinophil count as percentage of total cekzzwshhb1883-90-96 14:33:00* Test Item Value Reference Range Interpretation Comments Eosinophils (%) (Auto) (test code = 713-8) 0.2 0.0-6.0 [facility] TomballAutomated blood basophil count as percentage of total ofoqkwnmkp1764-05-20 14:33:00* Test Item Value Reference Range Interpretation Comments Basophils (%) (Auto) (test code = 706-2) 0.2 0.0-1.0 [facility] TomballFluoroscopic procedure less than one hour zgdxzuob1941 14:33:00* Test Item Value Reference Range Interpretation Comments IM GRANULOCYTES % (test code = IM GRANULOCYTES %) 1.3 0.0- 1.0 [facility] TomballAutomated blood neutrophil count 2019-12-13 14:33:00* Test Item Value Reference Range Interpretation Comments Neutrophils # (Auto) (test code = 751-8) 11.5 2.1-6.9 [facility] TomballBlood lymphocytes count (number/volume) 2019-12-13 14:33:00* Test Item Value Reference Range Interpretation Comments Lymphocytes # (Auto) (test code = 78955-8) 0.7 1.0-3.2 [facility] TomballBlood monocytes automated count (number/volume)2019-12-13 14:33:00* Test Item Value Reference Range Interpretation Comments Monocytes # (Auto) (test code = 742-7) 0.4 0.2-0.8 [facility] TomballAutomated blood eosinophil count 2019-12-13 14:33:00* Test Item Value Reference Range Interpretation Comments Eosinophils # (Auto) (test code = 711-2) 0.0 0.0-0.4 [facility] TomballAutomated blood basophil count (count/volume)2019-12-13 14:33:00* Test Item Value Reference Range Interpretation Comments Basophils # (Auto) (test code = 704-7) 0.0 0.0-0.1 [facility] TomballFluoroscopic procedure less than one hour jbaajbwo6855-38-85 14:33:00* Test Item Value Reference Range Interpretation Comments Absolute Immature Granulocyte (auto (mojgan t code = Absolute Immature Granulocyte (auto) 0.16 0-0.1 [facility] TomballProthrombin time (PT) in platelet poor plasma by coagulation xadvs0444-48-22 14:33:00* Test Item Value Reference Range Interpretation Comments Prothrombin Time (test code = 5902-2) 14.9 11.9-14.5 [facility] TomballINR in Platelet poor plasma by Coagulation tyuwf8552-87-01 14:33:00* Test Item Value Reference Range Interpretation Comments Prothromb Time International Ratio (test code = 6301-6) 1.10 Oral Anticoagulant Therapy INR Values:1. Low Intensity Therapy 1.5 - 2.02 . Moderate Intensity Therapy 2.0 - 3.03. High Intensity Therapy(1) 2.5 - 3. 54. High Intensity Therapy(2) 3.0 - 4.05. Panic Value INR > 5.0 [facility] TomballActivated partial thromboplastin time (aPTT) in platelet poor plasma by coagulation yktch5566-84-90 14:33:00* Test Item Value Reference Range Interpretation Comments Activated Partial Thromboplast Time (test code = 99327-9) 25.8 23.8-35.5 [facility] Centererum or plasma sodium measurement (moles/volume)2019-12-13 14:33:00* Test Item Value Reference Range Interpretation Comments Sodium Level (test code = 2951-2) 130 136-145 [facility] Centererum or plasma potassium measurement (moles/volume)2019-12-13 14:33:00* Test Item Value Reference Range Interpretation Comments Potassium Level (test code = 2823-3) 5.2 3.5-5.1 [facility] Centererum or plasma chloride measurement (moles/volume)2019-12-13 14:33:00* Test Item Value Reference Range Interpretation Comments Chloride Level (test code = 2075-0) 88 98-107 [facility] Centererum or plasma carbon dioxide, total measurement (moles/volume)2019-12-13 14:33:00* Test Item Value Reference Range Interpretation Comments Carbon Dioxide Level (test code = 2028-9) 26 22-29 [facility] Centererum or plasma anion ams6530-48-11 14:33:00* Test Item Value Reference Range Interpretation Comments Anion Gap (test code = 65876-5) 21.2 8-16 [facility] Centererum or plasma urea nitrogen measurement (mass/volume)2019-12-13 14:33:00* Test Item Value Reference Range Interpretation Comments Blood Urea Nitrogen (test code = 3094-0) 95 7-26 [facility] Centererum or plasma creatinine measurement (mass/volume)2019-12-13 14:33:00* Test Item Value Reference Range Interpretation Comments Creatinine (test code = 2160-0) 8.31 0.72-1.25 [facility] Centererum or plasma urea nitrogen/creatinine mass tfehe6404-43-13 14:33:00* Test Item Value Reference Range Interpretation Comments BUN/Creatinine Ratio (test code = 3097-3) 11 6-25 [facility] TomballEstimated glomerular filtration rate (GFR) nynqjqqmdgenz6408-85-49 14:33:00* Test Item Value Reference Range Interpretation Comments Estimat Glomerular Filtration Rate (test code = 181456951) 6 >60 Ranges were taken from the National Kidney Disease Education Program and the [facility] Kid[facility] Foundation literature.Reference ranges:60 or greater: Ieiwrt65-48 ( for 3 consecutive months): Chronic kidney disease 15 or less: Kidney failureHCA Houston Healthcare TomballGlucose mrcikhiqwbw1631-33-71 14:33:00* Test Item Value Reference Range Interpretation Comments Glucose Level (test code = DWY7627) 522 74-118 Results repeated and called to [Dr. [place]] at 1520 on 12/13/19 by Zoraida Victoria. Re ad back and verified.[facility] Centererum or plasma calcium measurement (mass/volume)2019-12-13 14:33:00* Test Item Value Reference Range Interpretation Comments Calcium Level (test code = 72882-1) 8.1 8.4-10.2 [facility] Centererum or plasma total bilirubin measurement (mass/volume)2019-12-13 14:33:00* Test Item Value Reference Range Interpretation Comments Total Bilirubin (test code = 1975-2) 0.3 0.2-1.2 [facility] TomballFluoroscopic procedure less than one hour wvsykhfd9929-49-37 14:33:00* Test Item Value Reference Range Interpretation Comments Aspartate Amino Transf (AST/SGOT) (test code = Aspartate Amino Transf (AST/SGOT)) 7 5-34 [facility] Centererum or plasma alanine aminotransferase measurement (enzymatic activity/volume)2019-12-13 14:33:00* Test Item Value Reference Range Interpretation Comments Alanine Aminotransferase (ALT/SGPT) (test code = 1742-6) 17 0-55 [facility] Centererum or plasma protein measurement (mass/volume)2019-12-13 14:33:00* Test Item Value Reference Range Interpretation Comments Total Protein (test code = 2885-2) 6.3 6.5-8.1 [facility] Centererum or plasma albumin measurement (mass/volume)2019-12-13 14:33:00* Test Item Value Reference Range Interpretation Comments Albumin (test code = 1751-7) 1.6 3.5-5.0 [facility] TomballPlasma globulin measurement (mass/volume) 2019-12-13 14:33:00* Test Item Value Reference Range Interpretation Comments Globulin (test code = 89276-0) 4.7 2.3-3.5 [facility] Centererum or plasma albumin/globulin mass iimjh1470-54-25 14:33:00* Test Item Value Reference Range Interpretation Comments Albumin/Globulin Ratio (test code = 1759-0) 0.3 0.8-2.0 [facility] Centererum or plasma alkaline phosphatase measurement (enzymatic activity/volume)2019-12-13 14:33:00* Test Item Value Reference Range Interpretation Comments Alkaline Phosphatase (test code = 6768-6) 97 40-150 [facility] TomballBlood anisocytosis detection by light uladqqgrgs9116-14-38 14:33:00* Test Item Value Reference Range Interpretation Comments Anisocytosis (test code = 702-1) SLIGHT [facility] TomballBlood anisocytosis detection by light hbyijewbbl5973-97-30 14:33:00* Test Item Value Reference Range Interpretation Comments Anisocytosis (test code = 702-1) SLIGHT [facility] TomballBlood anisocytosis detection by light txnofoqfnp1064-18-48 14:33:00* Test Item Value Reference Range Interpretation Comments Anisocytosis (test code = 702-1) SLIGHT [facility] TomballKNEE RIGHT THREE TGNZY8450-54-90 20:31:00 [facility] [address] [place] [address] Patient Name: CHARLOTTE LANDA MR #: [id number] : 1940 Age/Sex: 79/M Req #: [id number] Adm Physician: Ordered by: DOLLY CRAWFORD PUBLIC AID ELIGIBILITY ASSISTANT Report #: [id number] Location: ER Room/Bed: Procedure: [id number] DX/KNEE RIGHT THREE VIEWS Exam Date: 12/02/19 [...] Interpretation Comments Bedside Glucose (test code = 23625-6) 279 70-120 Meter ID: [id number] [facility] HospitalCapillary blood glucose measurement by glucometer (mass/volume)2019-05-30 10:55:00* Test Item Value Reference Range Interpretation Comments Bedside Glucose (test code = 61756-2) 279 70-120 Meter ID: [id number] [facility] CampusBedside Glucose 2019-05-29 19:57:00* Test Item Value Reference Range Interpretation Comments Bedside Glucose (test code = 25460-0) 152 70-120 H Meter ID: [id number] [facility] Healthcare TomballDifferential Total Cells Swullhy3750-49-07 10:10:00* Test Item Value Reference Range Interpretation Comments Differential Total Cells Counted (test code = Ying tial Total Cells Counted) 100 [facility] TomballNeutrophils % (Manual)2019-05-29 10:10:00 * Test Item Value Reference Range Interpretation Comments Neutrophils % (Manual) (test code = 80725-7) 61 40-74 [facility] TomballLymphocytes % (Manual)2019-05-29 10:10:00 * Test Item Value Reference Range Interpretation Comments Lymphocytes % (Manual) (test code = 737-7) 37 19-48 [facility] TomballMonocytes % (Manual)2019-05-29 10:10:00* Test Item Value Reference Range Interpretation Comments Monocytes % (Manual) (test code = 744-3) 2 3.4-9.0 L [facility] TomballPlatelet Lkamyhki6941-16-99 10:10:00* Test Item Value Reference Range Interpretation Comments Platelet Estimate (test code = 27813-1) ADEQUATE [facility] TomballPlatelet Morphology Eevseyi9381-65-30 10:10:00* Test Item Value Reference Range Interpretation Comments Platelet Morphology Comment (test code = 33656-3) NORMAL [facility] TomballRed Cell Morphology Wiyijyl2909-86-40 10:10:00* Test Item Value Reference Range Interpretation Comments Red Cell Morphology Comment (test code = 6742-1) NORMAL [facility] Centerodium Mzmhf5308-53-77 09:44:00* Test Item Value Reference Range Interpretation Comments Sodium Level (test code = 2951-2) 131 136-145 L [facility] TomballPotassium Zkxzo5069-19-26 09:44:00* Test Item Value Reference Range Interpretation Comments Potassium Level (test code = 2823-3) 5.1 3.5-5.1 [facility] TomballChloride Qxgyn8926-74-65 09:44:00* Test Item Value Reference Range Interpretation Comments Chloride Level (test code = 2075-0) 91 98-107 L [facility] TomballCarbon Dioxide Zrwlb3823-74-12 09:44:00* Test Item Value Reference Range Interpretation Comments Carbon Dioxide Level (test code = 2028-9) 20 22-29 L [facility] TomballAnion Nzp3593-45-66 09:44:00* Test Item Value Reference Range Interpretation Comments Anion Gap (test code = 55376-2) 25.1 8-16 H [facility] TomballBlood Urea Xhygtcqi3587-84-76 09:44:00* Test Item Value Reference Range Interpretation Comments Blood Urea Nitrogen (test code = 3094-0) 83 7-26 H [facility] TomballCreatinine2019-10-28 09:44:00* Test Item Value Reference Range Interpretation Comments Creatinine (test code = 2160-0) 10.37 0.72-1.25 H [facility] TomballBUN/Creatinine Pjlba6098-73-94 09:44:00* Test Item Value Reference Range Interpretation Comments BUN/Creatinine Ratio (test code = 3097-3) 8 6-25 [facility] TomballEstimat Glomerular Filtration Rate 2019-05-29 09:44:00* Test Item Value Reference Range Interpretation Comments Estimat Glomerular Filtration Rate (test code = 943008228) 5 >60 L Ranges were taken from the National Kidney Disease Education Program and the [facility] Kidney Foundation literature.Reference ranges:60 or greater: Edkvfl88-33 ( for 3 consecutive months): Chronic kidney disease 15 or less: Kidney failureHCA Houston Healthcare TomballGlucose Wflsr9111-04-26 09:44:00* Test Item Value Reference Range Interpretation Comments Glucose Level (test code = YVZ4459) 229 74-118 H [facility] TomballCalcium Lrrak6941-68-68 09:44:00* Test Item Value Reference Range Interpretation Comments Calcium Level (test code = 89661-5) 9.0 8.4-10.2 [facility] TomballTotal Agojxvwts0729-06-91 09:44:00* Test Item Value Reference Range Interpretation Comments Total Bilirubin (test code = 1975-2) 0.4 0.2-1.2 [facility] TomballAspartate Amino Transf (AST/SGOT) 2019-05-29 09:44:00* Test Item Value Reference Range Interpretation Comments Aspartate Amino Transf (AST/SGOT) (test code = Aspartate Amino Transf (AST/SGOT)) 7 5-34 [facility] TomballAlanine Aminotransferase (ALT/SGPT) 2019-05-29 09:44:00* Test Item Value Reference Range Interpretation Comments Alanine Aminotransferase (ALT/SGPT) (test code = 1742-6) 12 0-55 [facility] TomballTotal Adzwvmi4826-54-65 09:44:00* Test Item Value Reference Range Interpretation Comments Total Protein (test code = 2885-2) 6.9 6.5-8.1 [facility] TomballAlbumin2019-10-28 09:44:00* Test Item Value Reference Range Interpretation Comments Albumin (test code = 1751-7) 3.1 3.5-5.0 L [facility] TomballGlobulin2019-10-28 09:44:00* Test Item Value Reference Range Interpretation Comments Globulin (test code = 91287-0) 3.8 2.3-3.5 H [facility] TomballAlbumin/Globulin Sdwmw7833-90-11 09:44:00 * Test Item Value Reference Range Interpretation Comments Albumin/Globulin Ratio (test code = 1759-0) 0.8 0.8-2.0 [facility] TomballAlkaline Ultvaiuvpqr4919-88-80 09:44:00* Test Item Value Reference Range Interpretation Comments Alkaline Phosphatase (test code = 6768-6) 45 40-150 [facility] TomballWhite Blood Hcicp3354-84-46 09:21:00* Test Item Value Reference Range Interpretation Comments White Blood Count (test code = 6690-2) 14.12 4.8-10.8 H [facility] TomballRed Blood Gswxx5938-86-73 09:21:00* Test Item Value Reference Range Interpretation Comments Red Blood Count (test code = 789-8) 4.53 4.3-5.7 [facility] TomballHemoglobin2019-10-28 09:21:00* Test Item Value Reference Range Interpretation Comments Hemoglobin (test code = 22046-2) 13.9 14.0-18.0 L [facility] TomballHematocrit2019-10-28 09:21:00* Test Item Value Reference Range Interpretation Comments Hematocrit (test code = 4544-3) 42.8 38.2-49.6 [facility] TomballMean Corpuscular Sxbfzn6285-66-24 09:21:00* Test Item Value Reference Range Interpretation Comments Mean Corpuscular Volume (test code = 787-2) 94.5 81-99 [facility] TomballMean Corpuscular Rxcynyjiap0638-36-59 09:21:00* Test Item Value Reference Range Interpretation Comments Mean Corpuscular Hemoglobin (test code = 785-6) 30.7 28-32 [facility] TomballMean Corpuscular Hemoglobin Concent 2019-05-29 09:21:00* Test Item Value Reference Range Interpretation Comments Mean Corpuscular Hemoglobin Concent (test code = 786-4) 32.5 31-35 [facility] TomballRed Cell Distribution Xetrt3326-88-23 09:21:00* Test Item Value Reference Range Interpretation Comments Red Cell Distribution Width (test code = 65999-0) 15.3 11.7 -14.4 H [facility] TomballPlatelet Quxxv9935-12-88 09:21:00* Test Item Value Reference Range Interpretation Comments Platelet Count (test code = 777-3) 190 140-360 [facility] TomballNeutrophils (%) (Auto)2019-05-29 09:21:00 * Test Item Value Reference Range Interpretation Comments Neutrophils (%) (Auto) (test code = 65131-5) 62.0 38.7-80.0 [facility] TomballLymphocytes (%) (Auto)2019-05-29 09:21:00 * Test Item Value Reference Range Interpretation Comments Lymphocytes (%) (Auto) (test code = 736-9) 36.3 18.0-39.1 [facility] TomballMonocytes (%) (Auto)2019-05-29 09:21:00* Test Item Value Reference Range Interpretation Comments Monocytes (%) (Auto) (test code = 5905-5) 1.3 4.4-11.3 L [facility]ballEosinophils (%) (Auto)2019-05-29 09:21:00 * Test Item Value Reference Range Interpretation Comments Eosinophils (%) (Auto) (test code = 713-8) 0.0 0.0-6.0 [facility]ballBasophils (%) (Auto)2019-05-29 09:21:00* Test Item Value Reference Range Interpretation Comments Basophils (%) (Auto) (test code = 706-2) 0.1 0.0-1.0 [facility] TomballIM GRANULOCYTES %2019-05-29 09:21:00* Test Item Value Reference Range Interpretation Comments IM GRANULOCYTES % (test code = IM GRANULOCYTES %) 0.3 0.0- 1.0 [facility]ballNeutrophils # (Auto)2019-05-29 09:21:00* Test Item Value Reference Range Interpretation Comments Neutrophils # (Auto) (test code = 751-8) 8.8 2.1-6.9 H [facility] TomballLymphocytes # (Auto)2019-05-29 09:21:00* Test Item Value Reference Range Interpretation Comments Lymphocytes # (Auto) (test code = 38246-7) 5.1 1.0-3.2 H [facility] TomballMonocytes # (Auto)2019-05-29 09:21:00* Test Item Value Reference Range Interpretation Comments Monocytes # (Auto) (test code = 742-7) 0.2 0.2-0.8 [facility]ballEosinophils # (Auto)2019-05-29 09:21:00* Test Item Value Reference Range Interpretation Comments Eosinophils # (Auto) (test code = 711-2) 0.0 0.0-0.4 [facility]ballBasophils # (Auto)2019-05-29 09:21:00* Test Item Value Reference Range Interpretation Comments Basophils # (Auto) (test code = 704-7) 0.0 0.0-0.1 [facility] TomballAbsolute Immature Granulocyte (auto 2019-05-29 09:21:00* Test Item Value Reference Range Interpretation Comments Absolute Immature Granulocyte (auto (mojgan t code = Absolute Immature Granulocyte (auto) 0.04 0-0.1 [facility] TomballBlood leukocytes automated count (number/volume)2019-05-29 09:10:00* Test Item Value Reference Range Interpretation Comments White Blood Count (test code = 6690-2) 14.12 4.8-10.8 [facility] TomballBlood erythrocytes automated count (number/volume)2019-05-29 09:10:00* Test Item Value Reference Range Interpretation Comments Red Blood Count (test code = 789-8) 4.53 4.3-5.7 [facility] TomballBlood hemoglobin measurement (moles/volume)2019-05-29 09:10:00* Test Item Value Reference Range Interpretation Comments Hemoglobin (test code = 56914-2) 13.9 14.0-18.0 [facility] TomballAutomated blood hematocrit (volume fraction)2019-05-29 09:10:00* Test Item Value Reference Range Interpretation Comments Hematocrit (test code = 4544-3) 42.8 38.2-49.6 [facility] TomballAutomated erythrocyte mean corpuscular dccemd1586-67-82 09:10:00* Test Item Value Reference Range Interpretation Comments Mean Corpuscular Volume (test code = 787-2) 94.5 81-99 [facility] TomballAutomated erythrocyte mean corpuscular hemoglobin (mass per erythrocyte)2019-05-29 09:10:00* Test Item Value Reference Range Interpretation Comments Mean Corpuscular Hemoglobin (test code = 785-6) 30.7 28-32 [facility] TomballAutomated erythrocyte mean corpuscular hemoglobin concentration measurement (mass/volume)2019-05-29 09:10:00* Test Item Value Reference Range Interpretation Comments Mean Corpuscular Hemoglobin Concent (test code = 786-4) 32.5 31-35 [facility]-Nar1001[facility]39-28 09:10:00* Test Item Value Reference Range Interpretation Comments Red Cell Distribution Width (test code = 12310-8) 15.3 11.7 -14.4 [facility] TomballAutomated blood platelet count (count/volume)2019-05-29 09:10:00* Test Item Value Reference Range Interpretation Comments Platelet Count (test code = 777-3) 190 140-360 [facility] blood segmented neutrophil count as percentage of total xzobpoilsy7070-84-55 09:10:00* Test Item Value Reference Range Interpretation Comments Neutrophils (%) (Auto) (test code = 85212-0) 62.0 38.7-80.0 [facility] TomballAutomated blood lymphocyte count as percentage ot total yspsjxpcic0228-92-45 09:10:00* Test Item Value Reference Range Interpretation Comments Lymphocytes (%) (Auto) (test code = 736-9) 36.3 18.0-39.1 [facility]ballAutformerly [facility] blood monocyte count as percentage of total aywhlmbqws5133-79-55 09:10:00* Test Item Value Reference Range Interpretation Comments Monocytes (%) (Auto) (test code = 5905-5) 1.3 4.4-11.3 [facility] TomballAutomated blood eosinophil count as percentage of total ojjoadtzzz1436-38-56 09:10:00* Test Item Value Reference Range Interpretation Comments Eosinophils (%) (Auto) (test code = 713-8) 0.0 0.0-6.0 [facility] TomballAutomated blood basophil count as percentage of total anfobykqxh4005-21-08 09:10:00* Test Item Value Reference Range Interpretation Comments Basophils (%) (Auto) (test code = 706-2) 0.1 0.0-1.0 [facility] TomballFluoroscopic procedure less than one hour lslurdrr9402-74-44 09:10:00* Test Item Value Reference Range Interpretation Comments IM GRANULOCYTES % (test code = IM GRANULOCYTES %) 0.3 0.0- 1.0 [facility] TomballAutomated blood neutrophil count 2019-05-29 09:10:00* Test Item Value Reference Range Interpretation Comments Neutrophils # (Auto) (test code = 751-8) 8.8 2.1-6.9 [facility] TomballBlood lymphocytes count (number/volume) 2019-05-29 09:10:00* Test Item Value Reference Range Interpretation Comments Lymphocytes # (Auto) (test code = 93128-8) 5.1 1.0-3.2 [facility]ballBlnew [facility] monocytes automated count (number/volume)2019-05-29 09:10:00* Test Item Value Reference Range Interpretation Comments Monocytes # (Auto) (test code = 742-7) 0.2 0.2-0.8 [facility] TomballAutomated blood eosinophil count 2019-05-29 09:10:00* Test Item Value Reference Range Interpretation Comments Eosinophils # (Auto) (test code = 711-2) 0.0 0.0-0.4 [facility] TomballAutomated blood basophil count (count/volume)2019-05-29 09:10:00* Test Item Value Reference Range Interpretation Comments Basophils # (Auto) (test code = 704-7) 0.0 0.0-0.1 [facility] TomballFluoroscopic procedure less than one hour brwslvee3200-63-24 09:10:00* Test Item Value Reference Range Interpretation Comments Absolute Immature Granulocyte (auto (mojgan t code = Absolute Immature Granulocyte (auto) 0.04 0-0.1 [facility] TomballFluoroscopic procedure less than one hour utjsrhzh1259-43-54 09:10:00* Test Item Value Reference Range Interpretation Comments Differential Total Cells Counted (test code = Ying tial Total Cells Counted) 100 [facility] TomballManual blood neutrophils/100 leukocytes 2019-05-29 09:10:00* Test Item Value Reference Range Interpretation Comments Neutrophils % (Manual) (test code = 34047-7) 61 40-74 [facility]100 leukocytes 2019-05-29 09:10:00* Test Item Value Reference Range Interpretation Comments Lymphocytes % (Manual) (test code = 737-7) 37 19-48 [facility] blood monocytes/100 leukocytes 2019-05-29 09:10:00* Test Item Value Reference Range Interpretation Comments Monocytes % (Manual) (test code = 744-3) 2 3.4-9.0 [facility]ballBlood platelets count by estimate (number/volume)2019-05-29 09:10:00* Test Item Value Reference Range Interpretation Comments Platelet Estimate (test code = 39374-6) ADEQUATE [facility] TomballPlatelet bayfpdxnmv3706-64-23 09:10:00* Test Item Value Reference Range Interpretation Comments Platelet Morphology Comment (test code = 37589-0) NORMAL [facility] TomballRBC elexfsgwrq3968-45-24 09:10:00* Test Item Value Reference Range Interpretation Comments Red Cell Morphology Comment (test code = 6742-1) NORMAL [facility] Centererum or plasma sodium measurement (moles/volume)2019-05-29 09:10:00* Test Item Value Reference Range Interpretation Comments Sodium Level (test code = 2951-2) 131 136-145 [facility] Centererum or plasma potassium measurement (moles/volume)2019-05-29 09:10:00* Test Item Value Reference Range Interpretation Comments Potassium Level (test code = 2823-3) 5.1 3.5-5.1 [facility] Centererum or plasma chloride measurement (moles/volume)2019-05-29 09:10:00* Test Item Value Reference Range Interpretation Comments Chloride Level (test code = 2075-0) 91 98-107 [facility] Centererum or plasma carbon dioxide, total measurement (moles/volume)2019-05-29 09:10:00* Test Item Value Reference Range Interpretation Comments Carbon Dioxide Level (test code = 2028-9) 20 22-29 [facility] Centererum or plasma anion snu9637-80-24 09:10:00* Test Item Value Reference Range Interpretation Comments Anion Gap (test code = 69222-1) 25.1 8-16 [facility] Centererum or plasma urea nitrogen measurement (mass/volume)2019-05-29 09:10:00* Test Item Value Reference Range Interpretation Comments Blood Urea Nitrogen (test code = 3094-0) 83 7-26 [facility] Centererum or plasma creatinine measurement (mass/volume)2019-05-29 09:10:00* Test Item Value Reference Range Interpretation Comments Creatinine (test code = 2160-0) 10.37 0.72-1.25 [facility] Centererum or plasma urea nitrogen/creatinine mass nyumv8182-16-47 09:10:00* Test Item Value Reference Range Interpretation Comments BUN/Creatinine Ratio (test code = 3097-3) 8 6-25 [facility] TomballEstimated glomerular filtration rate (GFR) wmqxjcuuscedy8526-86-29 09:10:00* Test Item Value Reference Range Interpretation Comments Estimat Glomerular Filtration Rate (test code = 401298602) 5 >60 Ranges were taken from the National Kidney Disease Education Program and the [facility] Foundation literature.Reference ranges:60 or greater: Euowua99-12 ( for 3 consecutive months): Chronic kidney disease 15 or less: Kidney failureHCA Houston Healthcare TomballGlucose lgmmpawlluw5250-95-46 09:10:00* Test Item Value Reference Range Interpretation Comments Glucose Level (test code = DFE3099) 229 74-118 [facility] Centererum or plasma calcium measurement (mass/volume)2019-05-29 09:10:00* Test Item Value Reference Range Interpretation Comments Calcium Level (test code = 32131-0) 9.0 8.4-10.2 [facility] Centererum or plasma total bilirubin measurement (mass/volume)2019-05-29 09:10:00* Test Item Value Reference Range Interpretation Comments Total Bilirubin (test code = 1975-2) 0.4 0.2-1.2 [facility] TomballFluoroscopic procedure less than one hour jtsmefvk1037-07-26 09:10:00* Test Item Value Reference Range Interpretation Comments Aspartate Amino Transf (AST/SGOT) (test code = Aspartate Amino Transf (AST/SGOT)) 7 5-34 [facility] Centererum or plasma alanine aminotransferase measurement (enzymatic activity/volume)2019-05-29 09:10:00* Test Item Value Reference Range Interpretation Comments Alanine Aminotransferase (ALT/SGPT) (test code = 1742-6) 12 0-55 [facility] Centererum or plasma protein measurement (mass/volume)2019-05-29 09:10:00* Test Item Value Reference Range Interpretation Comments Total Protein (test code = 2885-2) 6.9 6.5-8.1 [facility] Centererum or plasma albumin measurement (mass/volume)2019-05-29 09:10:00* Test Item Value Reference Range Interpretation Comments Albumin (test code = 1751-7) 3.1 3.5-5.0 [facility] TomballPlasma globulin measurement (mass/volume) 2019-05-29 09:10:00* Test Item Value Reference Range Interpretation Comments Globulin (test code = 52260-2) 3.8 2.3-3.5 [facility] Centererum or plasma albumin/globulin mass jkhtj9972-83-17 09:10:00* Test Item Value Reference Range Interpretation Comments Albumin/Globulin Ratio (test code = 1759-0) 0.8 0.8-2.0 [facility] Centererum or plasma alkaline phosphatase measurement (enzymatic activity/volume)2019-05-29 09:10:00* Test Item Value Reference Range Interpretation Comments Alkaline Phosphatase (test code = 6768-6) 45 40-150 [facility] TomballFluoroscopic procedure less than one hour ijpmicmr9428-62-06 09:10:00* Test Item Value Reference Range Interpretation Comments Differential Total Cells Counted (test code = Ying matute Total Cells Counted) 100 [facility] blood neutrophils/100 leukocytes 2019-05-29 09:10:00* Test Item Value Reference Range Interpretation Comments Neutrophils % (Manual) (test code = 22016-8) 61 40-74 [facility] blood lymphocytes/100 leukocytes 2019-05-29 09:10:00* Test Item Value Reference Range Interpretation Comments Lymphocytes % (Manual) (test code = 737-7) 37 19-48 [facility] blood monocytes/100 leukocytes 2019-05-29 09:10:00* Test Item Value Reference Range Interpretation Comments Monocytes % (Manual) (test code = 744-3) 2 3.4-9.0 [facility]ballBlnew [facility] platelets count by estimate (number/volume)2019-05-29 09:10:00* Test Item Value Reference Range Interpretation Comments Platelet Estimate (test code = 72118-0) ADEQUATE [facility] TomballPlatelet lzdjkqqvhn6818-61-27 09:10:00* Test Item Value Reference Range Interpretation Comments Platelet Morphology Comment (test code = 43918-6) NORMAL [facility] TomballRBC xknekjvbgv3672-32-32 09:10:00* Test Item Value Reference Range Interpretation Comments Red Cell Morphology Comment (test code = 6742-1) NORMAL [facility]ballEosinophils % (Manual)2019-05-26 09:28:00 * Test Item Value Reference Range Interpretation Comments Eosinophils % (Manual) (test code = 714-6) 1 0-7 [facility] TomballReactive Vqggxwldnug5840-96-87 09:28:00* Test Item Value Reference Range Interpretation Comments Reactive Lymphocytes (test code = 09127-7) 15 [facility] blood eosinophil count as percentage of total prflzwgatb1813-77-12 07:34:00* Test Item Value Reference Range Interpretation Comments Eosinophils % (Manual) (test code = 714-6) 1 0-7 [facility]ballBlnew [facility] lymphocytes variant count (number/volume)2019-05-26 07:34:00* Test Item Value Reference Range Interpretation Comments Reactive Lymphocytes (test code = 76434-5) 15 [facility] eosinophil count as percentage of total smderkfdvi9274-72-45 07:34:00* Test Item Value Reference Range Interpretation Comments Eosinophils % (Manual) (test code = 714-6) 1 0-7 [facility] lymphocytes variant count (number/volume)2019-05-26 07:34:00* Test Item Value Reference Range Interpretation Comments Reactive Lymphocytes (test code = 14302-5) 15 [facility] lymphocytes variant count (number/volume)2019-05-26 07:34:00* Test Item Value Reference Range Interpretation Comments Reactive Lymphocytes (test code = 69214-3) 15 [facility] lymphocytes variant count (number/volume)2019-05-26 07:34:00* Test Item Value Reference Range Interpretation Comments Reactive Lymphocytes (test code = 20935-2) 15 [facility] lymphocytes variant count (number/volume)2019-05-26 07:34:00* Test Item Value Reference Range Interpretation Comments Reactive Lymphocytes (test code = 83648-7) 15 [facility] Jampvhi8387-22-99 19:55:00* Test Item Value Reference Range Interpretation Comments Blood Culture (test code = 92100434) NO GROWTH AFTER 5 DAYS, FINAL REPORT [facility] B Surface Antibody, Quant 2019-05-23 07:49:00* Test Item Value Reference Range Interpretation Comments Hepatitis B Surface Antibody, Quant (test code = 5194-6) >1000.0 Immunity>9.9 Status of Immunity Anti-HBs Level Inconsistent with Immunity 0.0 - 9.9Consistent with Immunity >9.9[facility] Be Myogvtp0095-52-56 07:49:00* Test Item Value Reference Range Interpretation Comments Hepatitis Be Antigen (test code = 59164-8) Negative Negative Performed at: [address] [id number] Director: Gregor Hernandez MD, Phone: [phone] [facility] Healthcare Medical Centererum hepatitis B virus surface antibody assay by radioimmunoassay (units/volume)2019-05-22 16:11:00* Test Item Value Reference Range Interpretation Comments Hepatitis B Surface Antibody, Quant (test code = 5194-6) >1000.0 Immunity>9.9 Status of Immunity Anti-HBs Level Inconsistent with Immunity 0.0 - 9.9Consistent with Immunity >9.9CThe [facility] Campuserum hepatitis B virus e antigen detection by enzyme uurefavvsnm7773-16-23 16:11:00* Test Item Value Reference Range Interpretation Comments Hepatitis Be Antigen (test code = 85879-5) Negative Negative Performed at: [address] [id number] Director: Gregor Hernandez MD, Phone: [phone] [facility] Healthcare Medical Centererum hepatitis B virus surface antibody assay by radioimmunoassay (units/volume)2019-05-22 16:11:00* Test Item Value Reference Range Interpretation Comments Hepatitis B Surface Antibody, Quant (test code = 5194-6) >1000.0 Immunity>9.9 Status of Immunity Anti-HBs Level Inconsistent with Immunity 0.0 - 9.9Consistent with Immunity >9.9CThe Hospit[facility] Campuserum hepatitis B virus e antigen detection by enzyme mprltikpadu7440-95-71 16:11:00* Test Item Value Reference Range Interpretation Comments Hepatitis Be Antigen (test code = 10758-3) Negative Negative Performed at: [address] [id number] Director: Gregor Hernandez MD, Phone: [phone] [facility] Healthcare Medical Centererum hepatitis B virus e antigen detection by enzyme immunoassay 2019-05-22 16:11:00* Test Item Value Reference Range Interpretation Comments Hepatitis Be Antigen (test code = 16366-3) Negative Negative Performed at: [facility] [id number] Director: Gregor Hernandez MD, Phone: [phone] [facility] Healthcare Medical Centererum hepatitis B virus e antigen detection by enzyme immunoassay 2019-05-22 16:11:00* Test Item Value Reference Range Interpretation Comments Hepatitis Be Antigen (test code = 60282-2) Negative Negative Performed at: - [facility] [id number] Director: Gregor Hernandez MD, Phone: [phone] Houston Healthcare TomballCT ORBIT/SELLA/PF OA3627-48-28 20:26:00 [place] [address] Patient Name: CHARLOTTE LANDA MR #: [id number] : 1940 Age/Sex: 78/M Req #: [id number] Adm Physician: Ordered by: SHIELA DASH MD [...] 33 COPY TO: SHIELA DASH MD Blood cgjiosm7275-62-27 19:40:00* Test Item Value Reference Range Interpretation Comments Blood Culture (test code = 45054495) NO GROWTH AFTER 5 DAYS, [facility] rookbaq9974-[facility]-07 19:40:00* Test Item Value Reference Range Interpretation Comments Blood Culture (test code = 61022362) NO GROWTH AFTER 5 DAYS, [facility] cwpagrr2752-81-11 19:40:00* Test Item Value Reference Range Interpretation Comments Blood Culture (test code = 95953240) NO GROWTH AFTER 5 DAYS, [facility] wnrsbsn8141-34-85 19:40:00* Test Item Value Reference Range Interpretation Comments Blood Culture (test code = 00882723) NO GROWTH AFTER 5 DAYS, [facility] qslijtp8782-53-18 19:40:00* Test Item Value Reference Range Interpretation Comments Blood Culture (test code = 59705207) NO GROWTH AFTER 5 DAYS, FINAL REPORT [facility] TomballBedside Qnwndlb1973-56-20 15:52:00* Test Item Value Reference Range Interpretation Comments Bedside Glucose (test code = 77162-2) 130 70-120 H Meter ID: [id number] [facility] Healthcare TomballDifferential Total Cells Bfdyjng7616-89-43 08:45:00* Test Item Value Reference Range Interpretation Comments Differential Total Cells Counted (test code = Ying tial Total Cells Counted) 100 [facility] TomballNeutrophils % (Manual)2019-01-06 08:45:00 * Test Item Value Reference Range Interpretation Comments Neutrophils % (Manual) (test code = 28439-9) 12 40-74 L [facility] TomballLymphocytes % (Manual)2019-01-06 08:45:00 * Test Item Value Reference Range Interpretation Comments Lymphocytes % (Manual) (test code = 737-7) 80 19-48 H [facility] TomballMonocytes % (Manual)2019-01-06 08:45:00* Test Item Value Reference Range Interpretation Comments Monocytes % (Manual) (test code = 744-3) 6 3.4-9.0 [facility] TomballBlast Cells %2019-01-06 08:45:00* Test Item Value Reference Range Interpretation Comments Blast Cells % (test code = 52764-7) 2 [facility] TomballPlatelet Trlpfdjb5979-28-61 08:45:00* Test Item Value Reference Range Interpretation Comments Platelet Estimate (test code = 64692-8) SLIGHTLY DECREASED [facility] TomballPlatelet Morphology Xzxcsmy0810-37-67 08:45:00* Test Item Value Reference Range Interpretation Comments Platelet Morphology Comment (test code = 98340-3) NORMAL [facility] TomballPolychromasia2019-06-07 08:45:00* Test Item Value Reference Range Interpretation Comments Polychromasia (test code = 00795-9) FEW [facility] TomballHypochromasia2019-06-07 08:45:00* Test Item Value Reference Range Interpretation Comments Hypochromasia (test code = 728-6) MODERATE [facility] TomballRed Cell Morphology Hqpsihu8275-08-18 08:45:00* Test Item Value Reference Range Interpretation Comments Red Cell Morphology Comment (test code = 6742-1) NORMAL [facility] TomballBlast Cells %2019-01-06 08:45:00* Test Item Value Reference Range Interpretation Comments Blast Cells % (test code = 90107-0) 2 [facility] TomballPolychromasia2019-06-07 08:45:00* Test Item Value Reference Range Interpretation Comments Polychromasia (test code = 33192-4) FEW [facility] TomballHypochromasia2019-06-07 08:45:00* Test Item Value Reference Range Interpretation Comments Hypochromasia (test code = 728-6) MODERATE [facility] Centerodium Jitmr6304-77-72 05:43:00* Test Item Value Reference Range Interpretation Comments Sodium Level (test code = 2951-2) 138 136-145 [facility] TomballPotassium Sksvq3218-66-91 05:43:00* Test Item Value Reference Range Interpretation Comments Potassium Level (test code = 2823-3) 4.1 3.5-5.1 [facility] TomballChloride Fepxg6355-38-70 05:43:00* Test Item Value Reference Range Interpretation Comments Chloride Level (test code = 2075-0) 100 98-107 [facility] TomballCarbon Dioxide Dykgj7780-31-34 05:43:00* Test Item Value Reference Range Interpretation Comments Carbon Dioxide Level (test code = 2028-9) 26 22-29 [facility] TomballAnion Ymw7525-08-15 05:43:00* Test Item Value Reference Range Interpretation Comments Anion Gap (test code = 80789-7) 16.1 8-16 H [facility] TomballBlood Urea Dlmascoz7897-90-82 05:43:00* Test Item Value Reference Range Interpretation Comments Blood Urea Nitrogen (test code = 3094-0) 50 7-26 H [facility] TomballCreatinine2019-06-07 05:43:00* Test Item Value Reference Range Interpretation Comments Creatinine (test code = 2160-0) 6.74 0.72-1.25 H [facility] TomballBUN/Creatinine Ckgod7809-44-33 05:43:00* Test Item Value Reference Range Interpretation Comments BUN/Creatinine Ratio (test code = 3097-3) 7 6-25 [facility] TomballEstimat Glomerular Filtration Rate 2019-01-06 05:43:00* Test Item Value Reference Range Interpretation Comments Estimat Glomerular Filtration Rate (test code = 017268774) 8 >60 L Ranges were taken from the National Kidney Disease Education Program and the [facility]ney Foundation literature.Reference ranges:60 or greater: Jecoxa73-25 ( for 3 consecutive months): Chronic kidney disease 15 or less: Kidney failureHCA Houston Healthcare TomballGlucose Jgahx8810-91-58 05:43:00* Test Item Value Reference Range Interpretation Comments Glucose Level (test code = QHP1622) 105 74-118 [facility] TomballCalcium Zifhp3231-63-09 05:43:00* Test Item Value Reference Range Interpretation Comments Calcium Level (test code = 44143-9) 8.0 8.4-10.2 L [facility] TomballMagnesium Cjmrz3768-46-36 05:43:00* Test Item Value Reference Range Interpretation Comments Magnesium Level (test code = 07871-7) 2.1 1.3-2.1 [facility] TomballMagnesium Ulqnv1016-36-49 05:43:00* Test Item Value Reference Range Interpretation Comments Magnesium Level (test code = 69463-1) 2.1 1.3-2.1 [facility] TomballWhite Blood Devmm2091-60-08 05:04:00* Test Item Value Reference Range Interpretation Comments White Blood Count (test code = 6690-2) 25.19 4.8-10.8 H [facility] TomballRed Blood Pzfsp3109-80-19 05:04:00* Test Item Value Reference Range Interpretation Comments Red Blood Count (test code = 789-8) 2.59 4.3-5.7 L [facility] TomballHemoglobin2019-06-07 05:04:00* Test Item Value Reference Range Interpretation Comments Hemoglobin (test code = 61360-2) 7.5 14.0-18.0 L [facility] TomballHematocrit2019-06-07 05:04:00* Test Item Value Reference Range Interpretation Comments Hematocrit (test code = 4544-3) 23.2 38.2-49.6 L [facility] TomballMean Corpuscular Hqrpdu9001-56-83 05:04:00* Test Item Value Reference Range Interpretation Comments Mean Corpuscular Volume (test code = 787-2) 89.6 81-99 [facility] TomballMean Corpuscular Vdtonzczgy5172-57-40 05:04:00* Test Item Value Reference Range Interpretation Comments Mean Corpuscular Hemoglobin (test code = 785-6) 29.0 28-32 [facility] Concent 2019-01-06 05:04:00* Test Item Value Reference Range Interpretation Comments Mean Corpuscular Hemoglobin Concent (test code = 786-4) 32.3 31-35 [facility] TomballRed Cell Distribution Chefo1227-23-08 05:04:00* Test Item Value Reference Range Interpretation Comments Red Cell Distribution Width (test code = 59475-9) 20.9 11.7 -14.4 H [facility] TomballPlatelet Cqwis8390-57-97 05:04:00* Test Item Value Reference Range Interpretation Comments Platelet Count (test code = 777-3) 126 140-360 L [facility] TomballNeutrophils (%) (Auto)2019-01-06 05:04:00 * Test Item Value Reference Range Interpretation Comments Neutrophils (%) (Auto) (test code = 25088-9) 17.6 38.7-80.0 L [facility] TomballLymphocytes (%) (Auto)2019-01-06 05:04:00 * Test Item Value Reference Range Interpretation Comments Lymphocytes (%) (Auto) (test code = 736-9) 75.4 18.0-39.1 H [facility] TomballMonocytes (%) (Auto)2019-01-06 05:04:00* Test Item Value Reference Range Interpretation Comments Monocytes (%) (Auto) (test code = 5905-5) 6.5 4.4-11.3 [facility] TomballEosinophils (%) (Auto)2019-01-06 05:04:00 * Test Item Value Reference Range Interpretation Comments Eosinophils (%) (Auto) (test code = 713-8) 0.1 0.0-6.0 [facility] TomballBasophils (%) (Auto)2019-01-06 05:04:00* Test Item Value Reference Range Interpretation Comments Basophils (%) (Auto) (test code = 706-2) 0.1 0.0-1.0 [facility] TomballIM GRANULOCYTES %2019-01-06 05:04:00* Test Item Value Reference Range Interpretation Comments IM GRANULOCYTES % (test code = IM GRANULOCYTES %) 0.3 0.0- 1.0 [facility] TomballNeutrophils # (Auto)2019-01-06 05:04:00* Test Item Value Reference Range Interpretation Comments Neutrophils # (Auto) (test code = 751-8) 4.4 2.1-6.9 [facility] TomballLymphocytes # (Auto)2019-01-06 05:04:00* Test Item Value Reference Range Interpretation Comments Lymphocytes # (Auto) (test code = 87997-0) 19.0 1.0-3.2 H [facility] TomballMonocytes # (Auto)2019-01-06 05:04:00* Test Item Value Reference Range Interpretation Comments Monocytes # (Auto) (test code = 742-7) 1.6 0.2-0.8 H [facility] TomballEosinophils # (Auto)2019-01-06 05:04:00* Test Item Value Reference Range Interpretation Comments Eosinophils # (Auto) (test code = 711-2) 0.0 0.0-0.4 [facility] TomballBasophils # (Auto)2019-01-06 05:04:00* Test Item Value Reference Range Interpretation Comments Basophils # (Auto) (test code = 704-7) 0.0 0.0-0.1 [facility] TomballAbsolute Immature Granulocyte (auto 2019-01-06 05:04:00* Test Item Value Reference Range Interpretation Comments Absolute Immature Granulocyte (auto (mojgan t code = Absolute Immature Granulocyte (auto) 0.07 0-0.1 [facility] TomballPoikilocytosis2019-06-06 07:23:00* Test Item Value Reference Range Interpretation Comments Poikilocytosis (test code = 779-9) SLIGHT [facility] TomballAnisocytosis2019-06-06 07:23:00* Test Item Value Reference Range Interpretation Comments Anisocytosis (test code = 702-1) [facility] 07:23:00* Test Item Value Reference Range Interpretation Comments Poikilocytosis (test code = 779-9) [facility] 07:23:00* Test Item Value Reference Range Interpretation Comments Anisocytosis (test code = 702-1) [facility] CenterHepatitis B Surface Antibody, Quant 2019-01-05 05:21:00* Test Item Value Reference Range Interpretation Comments Hepatitis B Surface Antibody, Quant (test code = 5194-6) >1000.0 Immunity>9.9 Status of Immunity Anti-HBs Level Inconsistent with Immunity 0.0 - 9.9Consistent with Immunity >9.9[facility] Surface Mbkvykw6216-09-15 05:21:00* Test Item Value Reference Range Interpretation Comments Hepatitis B Surface Antigen (test code = 5196-1) Negative Negat tabatha [facility] B Core IgM Majgxcnn0731-66-26 05:21:00* Test Item Value Reference Range Interpretation Comments Hepatitis B Core IgM Antibody (test code = 22168-0) Negative Ne gative Performed at: - Lab[address] [id number] Director: Gregor Hernandez MD, Phone: [phone] [facility] B Surface Falnfma7735-81-16 05:21:00* Test Item Value Reference Range Interpretation Comments Hepatitis B Surface Antigen (test code = 5196-1) Negative Negat tabatha [facility] B Core IgM Sgekrcuv9645-68-78 05:21:00* Test Item Value Reference Range Interpretation Comments Hepatitis B Core IgM Antibody (test code = 98778-8) Negative Ne gative Performed at: - [address] [id number] Director: Gregor Hernandez MD, Phone: [phone] Houston Healthcare TomballArterial Blood aV5979-10-65 09:42:00* Test Item Value Reference Range Interpretation Comments Arterial Blood pH (test code = 2744-1) 7.59 7.31-7.41 H [facility] TomballArterial Blood Partial Pressure CO2 2019-01-04 09:42:00* Test Item Value Reference Range Interpretation Comments Arterial Blood Partial Pressure CO2 (test code = 2018-8) 27 41-51 L [facility] TomballArterial Blood Partial Pressure O2 2019-01-04 09:42:00* Test Item Value Reference Range Interpretation Comments Arterial Blood Partial Pressure O2 (test code = 2018-8) 122 80-105 H [facility] TomballArterial Blood YXQ58592-50-50 09:42:00* Test Item Value Reference Range Interpretation Comments Arterial Blood HCO3 (test code = 1960-4) 26 23-28 [facility] TomballArterial Blood Base Cifahy7624-67-06 09:42:00* Test Item Value Reference Range Interpretation Comments Arterial Blood Base Excess (test code = 1925-7) 4.0 -2-3 H [facility] TomballArterial Blood Oxygen Saturation 2019-01-04 09:42:00* Test Item Value Reference Range Interpretation Comments Arterial Blood Oxygen Saturation (test code = 2708-6) 99.0 95-98 H [facility] TomballFiO22019-06-05 09:42:00* Test Item Value Reference Range Interpretation Comments FiO2 (test code = FiO2) 40 PT ON PS 8,PEEP 5,40%[facility] TomballArterial Blood pH 2019-01-04 09:42:00* Test Item Value Reference Range Interpretation Comments Arterial Blood pH (test code = 2744-1) 7.59 7.31-7.41 H [facility] TomballArterial Blood Partial Pressure CO2 2019-01-04 09:42:00* Test Item Value Reference Range Interpretation Comments Arterial Blood Partial Pressure CO2 (test code = 2019-03) 27 41-51 L [facility] TomballArterial Blood Partial Pressure O2 2019-01-04 09:42:00* Test Item Value Reference Range Interpretation Comments Arterial Blood Partial Pressure O2 (test code = 2019-03) 122 80-105 H [facility] TomballArterial Blood ALI73270-94-77 09:42:00* Test Item Value Reference Range Interpretation Comments Arterial Blood HCO3 (test code = 1960-4) 26 23-28 [facility] TomballArterial Blood Base Rittqg0983-89-97 09:42:00* Test Item Value Reference Range Interpretation Comments Arterial Blood Base Excess (test code = 1925-7) 4.0 -2-3 H [facility] TomballArterial Blood Oxygen Saturation 2019-01-04 09:42:00* Test Item Value Reference Range Interpretation Comments Arterial Blood Oxygen Saturation (test code = 2708-6) 99.0 95-98 H [facility] TomballFiO22019-06-05 09:42:00* Test Item Value Reference Range Interpretation Comments FiO2 (test code = FiO2) 40 PT ON PS 8,PEEP 5,40%[facility] TomballTotal Bilirubin 2019-01-04 05:52:00* Test Item Value Reference Range Interpretation Comments Total Bilirubin (test code = 1975-2) 0.3 0.2-1.2 [facility] TomballAspartate Amino Transf (AST/SGOT) 2019-01-04 05:52:00* Test Item Value Reference Range Interpretation Comments Aspartate Amino Transf (AST/SGOT) (test code = Aspartate Amino Transf (AST/SGOT)) 6 5-34 [facility] TomballAlanine Aminotransferase (ALT/SGPT) 2019-01-04 05:52:00* Test Item Value Reference Range Interpretation Comments Alanine Aminotransferase (ALT/SGPT) (test code = 1742-6) 11 0-55 [facility] TomballTotal Pydlzzi2868-93-92 05:52:00* Test Item Value Reference Range Interpretation Comments Total Protein (test code = 2885-2) 6.2 6.5-8.1 L [facility] TomballAlbumin2019-06-05 05:52:00* Test Item Value Reference Range Interpretation Comments Albumin (test code = 1751-7) 2.9 3.5-5.0 L [facility] TomballGlobulin2019-06-05 05:52:00* Test Item Value Reference Range Interpretation Comments Globulin (test code = 56448-8) 3.3 2.3-3.5 [facility] TomballAlbumin/Globulin Gsflg6240-15-48 05:52:00 * Test Item Value Reference Range Interpretation Comments Albumin/Globulin Ratio (test code = 1759-0) 0.9 0.8-2.0 [facility] TomballAlkaline Mgrcbazbiwc4441-53-19 05:52:00* Test Item Value Reference Range Interpretation Comments Alkaline Phosphatase (test code = 6768-6) 48 40-150 [facility] TomballCHEST SINGLE (PORTABLE)2019-01-04 05:43:00 [facility] [address] [address] Patient Name: CHARLOTTE LANDA MR #: [id number] : 1940 Age/Sex: 78/M Req #: [id number] Adm Physician: STEVEN HAWKINS MD Ordered by: SHIELA DASH MD Report #: [id number] Location: ICU Room/Bed: ICU [facility] Procedure: 1 DX/CHEST SINGLE (PORTABLE) Exam Date: [...] enlarged. BONES AND SOFT TISSUES: No ac moapa osseous lesion. Soft tissues are unremarkable. UPPER ABDOMEN: No lauro e air under the diaphragm. IMPRESSION: Enlarged cardiomediastinal si lhouette and central vascular congestion, accentuated by low lung volumes. Signed by: Dr. Gisell Esqueda MD on 01/04/2019 5:44 AM Dictated By: YULIYA ESQUEDA MD 3 Tra nscribed By: HARRIS on 01/04/19543 COPY TO: SHIELA DASH MD CHEST SINGLE (PORTABLE)2019-01-03 06:49:00 [address] [address] Patient Name: CHARLOTTE LANDA MR #: [id number] : 1940 Age/Sex: 78/M Req #: [id number] Adm Physician: Ordered by: SHIELA DASH MD Report #: [id number] Location: ER Room/Bed: Procedure: DX/CHEST SINGLE (PORTABLE) Exam Date: 01/03/19 Exa m Time: 611 REPORT STATUS: Signed EXAMINATION: CHEST SINGLE (PORTABLE) INDICATION: post intu bation [id number] 13 Y COMPARISON: Same day at 4:57 [...] COPY TO: ROBERT DASH MD Creatine Kinase JK5061-80-12 05:48:00* Test Item Value Reference Range Interpretation Comments Creatine Kinase MB (test code = 92603-3) 1.70 0-5.0 [facility] B5386-07-55 05:48:00* Test Item Value Reference Range Interpretation Comments Troponin I (test code = DAR5723) 0.011 0-0.300 [facility] TomballCreatine Kinase YW7009-27-71 05:48:00* Test Item Value Reference Range Interpretation Comments Creatine Kinase MB (test code = 63381-8) 1.70 0-5.0 [facility]ballTrbaptist hospitalnin T2255-47-39 05:48:00* Test Item Value Reference Range Interpretation Comments Troponin I (test code = IHZ3406) 0.011 0-0.300 [facility] TomballCreatine Norohy8271-00-05 05:41:00* Test Item Value Reference Range Interpretation Comments Creatine Kinase (test code = 2157-6) 77 30-200 [facility] TomballCreatine Hogryy7039-88-77 05:41:00* Test Item Value Reference Range Interpretation Comments Creatine Kinase (test code = 2157-6) 77 30-200 [facility] TomballProthrombin Gytm5634-06-35 05:29:00* Test Item Value Reference Range Interpretation Comments Prothrombin Time (test code = 5902-2) 12.8 11.9-14.5 [facility] TomballProthromb Time International Ratio 2019-01-03 05:29:00* Test Item Value Reference Range Interpretation Comments Prothromb Time International Ratio (test code = 6301-6) 0.92 Oral Anticoagulant Therapy INR Values:1. Low Intensity Therapy 1.5 - 2.02 . Moderate Intensity Therapy 2.0 - 3.03. High Intensity Therapy(1) 2.5 - 3. 54. High Intensity Therapy(2) 3.0 - 4.05. Panic Value INR > 5.0 [facility] TomballActivated Partial Thromboplast Time 2019-01-03 05:29:00* Test Item Value Reference Range Interpretation Comments Activated Partial Thromboplast Time (test code = 11640-0) 22.5 23.8-35.5 L [facility] TomballProthrombin Ypss8008-40-07 05:29:00* Test Item Value Reference Range Interpretation Comments Prothrombin Time (test code = 5902-2) 12.8 11.9-14.5 [facility] TomballProthromb Time International Ratio 2019-01-03 05:29:00* Test Item Value Reference Range Interpretation Comments Prothromb Time International Ratio (test code = 6301-6) 0.92 Oral Anticoagulant Therapy INR Values:1. Low Intensity Therapy 1.5 - 2.02 . Moderate Intensity Therapy 2.0 - 3.03. High Intensity Therapy(1) 2.5 - 3. 54. High Intensity Therapy(2) 3.0 - 4.05. Panic Value INR > 5.0 [facility] TomballActivated Partial Thromboplast Time 2019-01-03 05:29:00* Test Item Value Reference Range Interpretation Comments Activated Partial Thromboplast Time (test code = 20301-8) 22.5 23.8-35.5 L [facility] TomballCHEST SINGLE (PORTABLE)2019-01-03 05:04:00 [address], [place] [address] Patient Name: CHARLOTTE LANDA MR #: [id number] : 1940 Age/Sex: 78/M Req #: [id number] Adm Physician: Ordered by: SHIELA DASH MD Report #: [id number] Location: ER Room/Bed: Procedure: [id number] DX/CHEST [...] COPY TO: SHIELA DASH MD CT CHEST U4278-37-11 12:28:00 [facility] [address] [place], [place] [address] Patient Name: CHARLOTTE LANDA MR #: [id number] : 1940 Age/Sex: 78/M Req #: [id number] Adm Physician: Ordered by: JORDYN IRENE MD Report #: [id number] Location: CT Room/Bed: Procedure: [id number] CT/CT C HEST W Exam Date: 01/02/19 [...] COPY TO: JORDYN YAN MD CT ABDOMEN Q2294-73-57 12:28:00 [address] [place] [address] Patient Name: CHARLOTTE LANDA MR #: [id number] : 1940 Age/Sex: 78/M Req #: [id number] Adm Physician: Ordered by: JORDYN IRENE MD Report #: [id number] Location: CT Room/Bed: Procedure: [id number] CT/CT A BDOMEN W Exam Date: 01/02/19 [...] 1256 COPY TO: JORDYN IRENE MD Urine Nvhii4667-90-47 23:13:00* Test Item Value Reference Range Interpretation Comments Urine Color (test code = 5778-6) YELLOW YELLOW [facility] TomballUrine Gznhybf6478-09-98 23:13:00* Test Item Value Reference Range Interpretation Comments Urine Clarity (test code = 71131-3) CLEAR CLEAR [facility] TomballUrine Specific Psjisfc2517-78-47 23:13:00 * Test Item Value Reference Range Interpretation Comments Urine Specific [place] (test code = 5811-5) 1.015 1.010-1.02 5 [facility] TomballUrine rA9554-05-82 23:13:00* Test Item Value Reference Range Interpretation Comments Urine pH (test code = 04874-1) 8 5-7 H [facility] TomballUrine Leukocyte Leuqguaz1886-13-50 23:13:00* Test Item Value Reference Range Interpretation Comments Urine Leukocyte Esterase (test code = 5799-2) NEGATIVE NEGATIVE [facility] TomballUrine Olkrwls2339-63-87 23:13:00* Test Item Value Reference Range Interpretation Comments Urine Nitrite (test code = 92180-4) NEGATIVE NEGATIVE [facility] TomballUrine Ihvpcfn4828-39-61 23:13:00* Test Item Value Reference Range Interpretation Comments Urine Protein (test code = 5804-0) 2+ NEGATIVE H [facility] TomballUrine Glucose (UA)2018-01-31 23:13:00* Test Item Value Reference Range Interpretation Comments Urine Glucose (UA) (test code = 2349-9) 3+ NEGATIVE H [facility] TomballUrine Atubpau8228-53-20 23:13:00* Test Item Value Reference Range Interpretation Comments Urine Ketones (test code = 21681-7) NEGATIVE NEGATIVE [facility] TomballUrine Zhkgedtdspby4681-34-51 23:13:00* Test Item Value Reference Range Interpretation Comments Urine Urobilinogen (test code = 47434-9) 0.2 0.2-1 [facility] TomballUrine Ihspijjsh0148-89-65 23:13:00* Test Item Value Reference Range Interpretation Comments Urine Bilirubin (test code = 1978-6) NEGATIVE NEGATIVE [facility] TomballUrine Dxhzu8037-21-87 23:13:00* Test Item Value Reference Range Interpretation Comments Urine Blood (test code = 77762-0) 1+ NEGATIVE H [facility] TomballUrine IKB0968-10-83 23:13:00* Test Item Value Reference Range Interpretation Comments Urine WBC (test code = 5821-4) 11-20 0-5 H [facility] TomballUrine EJH7048-15-91 23:13:00* Test Item Value Reference Range Interpretation Comments Urine RBC (test code = 74719-6) 6-10 0-5 H [facility] TomballUrine Ajsunnax0946-01-35 23:13:00* Test Item Value Reference Range Interpretation Comments Urine Bacteria (test code = 17343-5) RARE NONE [facility] TomballUrine Epithelial Oropg5844-10-15 23:13:00 * Test Item Value Reference Range Interpretation Comments Urine Epithelial Cells (test code = 18176-2) RARE NONE [facility] TomballUrine Ckuhz6170-62-52 23:13:00* Test Item Value Reference Range Interpretation Comments Urine Mucus (test code = 8247-9) RARE RARE [facility] TomballCHEST 2 XCGHS3906-18-51 22:56:00 [address] [address] Patient Name: CHARLOTTE LANDA MR #: [id number] : Age/Sex: 77/M Req #: [id number] Adm Physician: Ordered by: TALIA BIRMINGHAM MD Report #: [id number] Location: ER Room/Bed: Procedure: [id number] DX/CHEST 2 VIEWS Exam Date: Exam Time: [...] COPY TO: TALIA BIRMINGHAM MD Creatine Kinase SZ8171-49-13 22:09:00* Test Item Value Reference Range Interpretation Comments Creatine Kinase MB (test code = 32123-0) 1.50 0-5.0 [facility] TomballTroponin J3269-60-45 22:09:00* Test Item Value Reference Range Interpretation Comments Troponin I (test code = JWR2607) -0.001 0-0.300 [facility] Centerodium Inufv8135-64-38 22:01:00* Test Item Value Reference Range Interpretation Comments Sodium Level (test code = 2951-2) 138 136-145 [facility] TomballPotassium Rxjke0801-87-82 22:01:00* Test Item Value Reference Range Interpretation Comments Potassium Level (test code = 2823-3) 4.3 3.5-5.1 [facility] TomballChloride Fneex4032-32-57 22:01:00* Test Item Value Reference Range Interpretation Comments Chloride Level (test code = 2075-0) 99 98-107 [facility] TomballCarbon Dioxide Mejel7249-44-68 22:01:00* Test Item Value Reference Range Interpretation Comments Carbon Dioxide Level (test code = 2028-9) 24 22-29 [facility] TomballAnion Lud7322-69-07 22:01:00* Test Item Value Reference Range Interpretation Comments Anion Gap (test code = 23521-8) 19.3 8-16 H [facility] TomballBlood Urea Qkchbkwl4223-76-99 22:01:00* Test Item Value Reference Range Interpretation Comments Blood Urea Nitrogen (test code = 3094-0) 50 7-26 H [facility] TomballCreatinine2018-07-02 22:01:00* Test Item Value Reference Range Interpretation Comments Creatinine (test code = 2160-0) 9.66 0.72-1.25 H [facility] TomballBUN/Creatinine Bynns2521-77-52 22:01:00* Test Item Value Reference Range Interpretation Comments BUN/Creatinine Ratio (test code = 3097-3) 5 6-25 L [facility] TomballEstimat Glomerular Filtration Rate 2018-01-31 22:01:00* Test Item Value Reference Range Interpretation Comments Estimat Glomerular Filtration Rate (test code = 43033-0) 5 >60 L Ranges were taken from the National Kidney Disease Education Program and the [facility] Foundation literature.Reference ranges:60 or greater: Wcckkk85-91 ( for 3 consecutive months): Chronic kidney disease 15 or less: Kidney failureHCA Houston Healthcare TomballGlucose Ffuch1004-25-63 22:01:00* Test Item Value Reference Range Interpretation Comments Glucose Level (test code = JNU0020) 138 74-118 H [facility] TomballCalcium Hzhiu3022-26-86 22:01:00* Test Item Value Reference Range Interpretation Comments Calcium Level (test code = 89251-2) 8.7 8.4-10.2 [facility] TomballMagnesium Uymum6490-76-15 22:01:00* Test Item Value Reference Range Interpretation Comments Magnesium Level (test code = 56296-4) 2.0 1.3-2.1 [facility] TomballTotal Fcmmlcied6676-26-14 22:01:00* Test Item Value Reference Range Interpretation Comments Total Bilirubin (test code = 1975-2) 0.5 0.2-1.2 [facility] TomballAspartate Amino Transf (AST/SGOT) 2018-01-31 22:01:00* Test Item Value Reference Range Interpretation Comments Aspartate Amino Transf (AST/SGOT) (test code = Aspartate Amino Transf (AST/SGOT)) 13 5-34 [facility] TomballAlanine Aminotransferase (ALT/SGPT) 2018-01-31 22:01:00* Test Item Value Reference Range Interpretation Comments Alanine Aminotransferase (ALT/SGPT) (test code = 1742-6) 45 0-55 [facility] TomballTotal Dsezdta9816-99-28 22:01:00* Test Item Value Reference Range Interpretation Comments Total Protein (test code = 2885-2) 7.6 6.5-8.1 [facility] TomballAlbumin2018-07-02 22:01:00* Test Item Value Reference Range Interpretation Comments Albumin (test code = 1751-7) 3.5 3.5-5.0 [facility] TomballGlobulin2018-07-02 22:01:00* Test Item Value Reference Range Interpretation Comments Globulin (test code = 01910-6) 4.1 2.3-3.5 H [facility] TomballAlbumin/Globulin Nmzth2191-71-96 22:01:00 * Test Item Value Reference Range Interpretation Comments Albumin/Globulin Ratio (test code = 1759-0) 0.9 0.8-2.0 [facility] TomballAlkaline Zjwlscolbjg9684-88-22 22:01:00* Test Item Value Reference Range Interpretation Comments Alkaline Phosphatase (test code = 6768-6) 72 40-150 [facility] TomballCreatine Ebhtrv6963-68-21 22:01:00* Test Item Value Reference Range Interpretation Comments Creatine Kinase (test code = 2157-6) 75 30-200 [facility] TomballProthrombin Ureu1476-27-84 21:54:00* Test Item Value Reference Range Interpretation Comments Prothrombin Time (test code = 5902-2) 13.2 11.9-14.5 [facility] TomballProthromb Time International Ratio 2018-01-31 21:54:00* Test Item Value Reference Range Interpretation Comments Prothromb Time International Ratio (test code = 6301-6) 1.08 Oral Anticoagulant Therapy INR Values:1. Low Intensity Therapy 1.5 - 2.02 . Moderate Intensity Therapy 2.0 - 3.03. High Intensity Therapy(1) 2.5 - 3. 54. High Intensity Therapy(2) 3.0 - 4.05. Panic Value INR > 5.0 [facility] TomballActivated Partial Thromboplast Time 2018-01-31 21:54:00* Test Item Value Reference Range Interpretation Comments Activated Partial Thromboplast Time (test code = 35967-3) 24.1 23.8-35.5 [facility] TomballWhite Blood Coabn1458-76-96 21:49:00* Test Item Value Reference Range Interpretation Comments White Blood Count (test code = 6690-2) 18.64 4.8-10.8 H [facility] TomballRed Blood Xuntc8889-58-66 21:49:00* Test Item Value Reference Range Interpretation Comments Red Blood Count (test code = 789-8) 3.89 4.3-5.7 L [facility] TomballHemoglobin2018-07-02 21:49:00* Test Item Value Reference Range Interpretation Comments Hemoglobin (test code = 26395-2) 11.2 14.0-18.0 L [facility] TomballHematocrit2018-07-02 21:49:00* Test Item Value Reference Range Interpretation Comments Hematocrit (test code = 4544-3) 34.1 38.2-49.6 L [facility] TomballMean Corpuscular Agddtp2385-11-90 21:49:00* Test Item Value Reference Range Interpretation Comments Mean Corpuscular Volume (test code = 787-2) 87.7 81-99 [facility] TomballMean Corpuscular Peyegwruej5222-82-93 21:49:00* Test Item Value Reference Range Interpretation Comments Mean Corpuscular Hemoglobin (test code = 785-6) 28.8 28-32 [facility] TomballMean Corpuscular Hemoglobin Concent 2018-01-31 21:49:00* Test Item Value Reference Range Interpretation Comments Mean Corpuscular Hemoglobin Concent (test code = 786-4) 32.8 31-35 [facility] TomballRed Cell Distribution Dexue8980-06-05 21:49:00* Test Item Value Reference Range Interpretation Comments Red Cell Distribution Width (test code = 86396-6) 18.9 11.7 -14.4 H [facility] TomballPlatelet Smsjk6718-34-00 21:49:00* Test Item Value Reference Range Interpretation Comments Platelet Count (test code = 777-3) 156 140-360 [facility] TomballNeutrophils (%) (Auto)2018-01-31 21:49:00 * Test Item Value Reference Range Interpretation Comments Neutrophils (%) (Auto) (test code = 41041-2) 21.3 38.7-80.0 L [facility] TomballLymphocytes (%) (Auto)2018-01-31 21:49:00 * Test Item Value Reference Range Interpretation Comments Lymphocytes (%) (Auto) (test code = 736-9) 74.5 18.0-39.1 H [facility] TomballMonocytes (%) (Auto)2018-01-31 21:49:00* Test Item Value Reference Range Interpretation Comments Monocytes (%) (Auto) (test code = 5905-5) 2.5 4.4-11.3 L [facility]ballEosinophils (%) (Auto)2018-01-31 21:49:00 * Test Item Value Reference Range Interpretation Comments Eosinophils (%) (Auto) (test code = 713-8) 1.1 0.0-6.0 [facility] TomballBasophils (%) (Auto)2018-01-31 21:49:00* Test Item Value Reference Range Interpretation Comments Basophils (%) (Auto) (test code = 706-2) 0.3 0.0-1.0 [facility] TomballIM GRANULOCYTES %2018-01-31 21:49:00* Test Item Value Reference Range Interpretation Comments IM GRANULOCYTES % (test code = IM GRANULOCYTES %) 0.3 0.0- 1.0 [facility] TomballNeutrophils # (Auto)2018-01-31 21:49:00* Test Item Value Reference Range Interpretation Comments Neutrophils # (Auto) (test code = 751-8) 4.0 2.1-6.9 [facility] TomballLymphocytes # (Auto)2018-01-31 21:49:00* Test Item Value Reference Range Interpretation Comments Lymphocytes # (Auto) (test code = 71552-6) 13.9 1.0-3.2 H [facility] TomballMonocytes # (Auto)2018-01-31 21:49:00* Test Item Value Reference Range Interpretation Comments Monocytes # (Auto) (test code = 742-7) 0.5 0.2-0.8 [facility]ballEosinophils # (Auto)2018-01-31 21:49:00* Test Item Value Reference Range Interpretation Comments Eosinophils # (Auto) (test code = 711-2) 0.2 0.0-0.4 [facility] TomballBasophils # (Auto)2018-01-31 21:49:00* Test Item Value Reference Range Interpretation Comments Basophils # (Auto) (test code = 704-7) 0.1 0.0-0.1 [facility] TomballAbsolute Immature Granulocyte (auto 2018-01-31 21:49:00* Test Item Value Reference Range Interpretation Comments Absolute Immature Granulocyte (auto (mojgan t code = Absolute Immature Granulocyte (auto) 0.05 0-0.1 [facility]Bed[facility] Cpkhqqf9358-83-86 21:11:00* Test Item Value Reference Range Interpretation Comments Bedside Glucose (test code = 62408-6) 131 70-120 H Meter ID: [id number] W/PLT COUNT & AUTO FQYEZCQGEKIY4575-51-99 13:38:00* Test Item Value Reference Range Interpretation [...] 0 /100 WBC 0 -0 BASIC METABOLIC RSAVE0438-97-26 13:02:00* Test Item Value Reference Range Interpretation [...] IS NOT APPLICABLE FOR DIALYSIS PATIENTS. PROTHROMBIN TIME/[id number] 12:24:00* Test Item Value Reference Range Interpretation Comments PROTIME (BEAKER) (test code = 759) 15.4 seconds 11.7-14.7 H INR (BEAKER) (test code = 370) 1.2 <=5.9 RECOMMENDED COUMADIN/WARFARIN INR THERAPY RANGESSTANDARD DOSE: 2.0 - 3.0 Inclu eileen: PROPHYLAXIS for venous thrombosis, systemic embolization; TREATMENT for dorothea ous thrombosis and/or pulmonary embolus.HIGH RISK: Target INR is 2.5-3.5 for pat ients with mechanical heart valves.GLUCOSE-STAT UTA4363-09-79 11:55:00* Test Item Value Reference Range Interpretation Comments GLUCOSE RANDOM (BEAKER) (test code = 652) 114 mg/dL 70-110 H POTASSIUM-STAT MVR8058-54-37 11:53:00* Test Item Value Reference Range Interpretation Comments POTASSIUM (BEAKER) (test code = 379) 4.3 meq/L 3.6-5.5 HGB/HCT (H&H) - STAT DYR9747-26-06 11:53:00* Test Item Value Reference Range Interpretation Comments HEMOGLOBIN (BEAKER) (test code = 410) 13.5 g/dL 13.0-16.8 HEMATOCRIT (BEAKER) (test code = 411) 40.0 % 40.0-50.0 PN Population(s) Vlxbl2093-98-42 10:12:00* Test Item Value Reference Range Interpretation Comments [facility] Population(s) Gated (test code = 38950-8) Cell Pop ulation Population Analysis [facility] TomballPN Rxdxdsywogtrvk7185-37-85 12:22:00* Test Item Value Reference Range Interpretation Comments [facility] Interpretation (test code = 54720-9) Interpretatio n: Peripheral Blood: No evidence of paroxysmal nocturnal hemoglobinuria (PNH). [facility] Ouhzbxq0739-49-62 12:22:00* Test Item Value Reference Range Interpretation Comments [facility] Comment (test code = 31051-3) Comment: At the sen sitivity level of this assay (typically 0.01-0.1%),these results do not support a diagnosis of paroxysmal nocturnal hemoglobinuria (PNH). Correlation with all available clinical,laboratory, and morphologic data is recommended. (sensitivity typically 0.01-0.1%; lower limit of detection dependent on number of cells present and events acquired, typically 90,000+ events acquired) [facility] Kdwqxmwh8853-63-46 12:22:00* Test Item Value Reference Range Interpretation Comments [facility] Specimen (test code = 01641-0) Specimen: Peripheral Blood [facility] Submitting Pxnhhddku4695-65-84 12:22:00* Test Item Value Reference Range Interpretation Comments [facility] Submitting Diagnosis (test code = 99069-3) Submitt ed Dx: Evaluation for paroxysmal nocturnal hemoglobinuria (PNH) [facility] Gzwfpbkva6112-57-13 12:22:00* Test Item Value Reference Range Interpretation Comments [facility] Viability (test code = 39488-8) Viability: 79% (7AAD exclusion ) [facility] Tdentzshjwfu1986-45-51 12:22:00* Test Item Value Reference Range Interpretation Comments [facility] Granulocytes (test code = 63664-3) Granulocytes: No GPI- anchor deficiency [facility] Fulmmltfm0216-41-71 12:22:00* Test Item Value Reference Range Interpretation Comments [facility] Monocytes (test code = 46637-3) Monocytes: No GPI-anchor defici ency [facility] Antibodies Vizrnfaxe3753-36-79 12:22:00* Test Item Value Reference Range Interpretation Comments [facility] Antibodies Performed (test code = 43150-7) Antibod ies Performed: CD14, CD15, CD24, CD45, CD64, FLAER [facility] Clinical Klpngfcyjow2003-78-22 12:22:00* Test Item Value Reference Range Interpretation Comments [facility] Clinical Information (test code = 90561-0) Comment : This test was developed and its performance characteristics determined by [facility]. It has not been cleared or approved by the Food and Drug Administration (FDA). The FDA has determined that such clearance or approval is not necessary. Any image(s) that accompany this report is/are a compliance representative dealer image(s) only and should not be used to render a diagnosis. Director Review Reviewed By: Venu Valdovinos M.D. [facility] Red Blood Xldob8676-51-44 12:18:00* Test Item Value Reference Range Interpretation Comments [facility] Red Blood Cells (test code = 20014-4) Red Blood Ce lls: SPRCS CD59+ (type I cells, no GPI-deficiency): 99.99% of red blood cells Diminished CD59 (type II cells, partial GPI-deficiency): 0.00% of red blood cells CD59-(type III cells, complete GPI-deficiency): 0.00% of red blood cells [facility] Flow Enjcxabqp5294-46-31 12:18:00* Test Item Value Reference Range Interpretation Comments [facility] Flow Cytometry (test code = [facility] Flow Cytometry) Di kimmy Review Reviewed By: Johny Joel M.D. [facility] TomballBlood Ckitfno0723-87-09 05:23:00* Test Item Value Reference Range Interpretation Comments Blood Culture (test code = 44887388) NO GROWTH AFTER 5 DAYS, FINAL REPORT [facility] TomballAlbumin (PEP)2017-08-13 14:57:00* Test Item Value Reference Range Interpretation Comments Albumin (PEP) (test code = Albumin (PEP)) 2.2 2.9-4.4 L [facility] TomballAlpha-1-Uithpytxi7204-94-41 14:57:00* Test Item Value Reference Range Interpretation Comments Onxay-3-Iljtbgoau (test code = 2865-4) 0.4 0.0-0.4 [facility] TomballAlpha-2-Jdounvppn7368-18-74 14:57:00* Test Item Value Reference Range Interpretation Comments Ltmrl-4-Ffcnmsekj (test code = 2868-8) 0.8 0.4-1.0 [facility] TomballImmunofixation Qandhcxhvqdqhnz2977-39-94 14:57:00* Test Item Value Reference Range Interpretation Comments Immunofixation Electrophoresis (test code = 99316-5) Comment . An apparent normal immunofixation pattern.[facility] TomballBeta Gamma Qvnzujaj8993-37-88 14:57:00* Test Item Value Reference Range Interpretation Comments Beta Gamma Globulin (test code = 2871-2) 0.7 0.7-1.3 [facility] TomballGamma Jqckfdsfw4751-39-90 14:57:00* Test Item Value Reference Range Interpretation Comments Gamma Globulins (test code = 2874-6) 0.6 0.4-1.8 [facility] TomballTotal Protein (PEP)2017-08-13 14:57:00* Test Item Value Reference Range Interpretation Comments Total Protein (PEP) (test code = 2885-2) 4.7 6.0-8.5 L [facility] TomballGlobulin2018-01-12 14:57:00* Test Item Value Reference Range Interpretation Comments Globulin (test code = 71000-0) 2.5 2.2-3.9 [facility] TomballKappa Light Chain Jxhxnodr3826-70-99 14:57:00* Test Item Value Reference Range Interpretation Comments [place] Light Chain Analysis (test code = 30927-8) 20.8 3.3-1 9.4 H [facility] TomballLambda Light Chain Edibcabe5398-82-10 14:57:00* Test Item Value Reference Range Interpretation Comments Lambda Light Chain Analysis (test code = 88445-5) 24.2 5.7- 26.3 [facility] TomballTotl [place]/Lambda Light Chain Ratio 2017-08-13 14:57:00* Test Item Value Reference Range Interpretation Comments Totl [place]/Lambda Light Chain Ratio (test code = 40313-0) 0.86 0.26-1.65 [facility] TomballProtein Electrophoresis K-Zabkq0078-98Qalne2267-32-29 14:57:00* Test Item Value Reference Range Interpretation Comments Protein Electrophoresis M-Juan (test code = 88516-1) Not Observ ed Not Observed [facility] TomballAlbumin/Globulin Wjjey6919-12-02 14:57:00 * Test Item Value Reference Range Interpretation Comments Albumin/Globulin Ratio (test code = 1759-0) 0.9 0.7-1.7 [facility] TomballProtein Electrophoresis Dbqa7345-22-69 14:57:00* Test Item Value Reference Range Interpretation Comments Protein Electrophoresis Note (test code = Protein Electropho resis Note) Comment . Protein electrophoresis scan will follow via computer,mail, or fence machine operator delivery. [facility] TomballImmunoglobulin C1304-01-53 14:57:00* Test Item Value Reference Range Interpretation Comments Immunoglobulin A (test code = 2458-8) 182 61-437 [facility] TomballImmunoglobulin T8565-97-25 14:57:00* Test Item Value Reference Range Interpretation Comments Immunoglobulin G (test code = 2465-3) 160 285-1289 L [facility] TomballImmunoglobulin B3369-19-21 14:57:00* Test Item Value Reference Range Interpretation Comments Immunoglobulin M (test code = 2472-9) 81 15-143 Performed at: - [facility] [id number] Director: Gregor Hernandez MD, Phone: [phone] at: - [facility] [id number] Director: REKHA Robles MD, [facility] ne: [phone] [facility] TomballDifferential Total Cells Ghtxtoz7211-71-82 08:07:00* Test Item Value Reference Range Interpretation Comments Differential Total Cells Counted (test code = Differen tial Total Cells Counted) 100 [facility] TomballNeutrophils % (Manual)2017-08-13 08:07:00 * Test Item Value Reference Range Interpretation Comments Neutrophils % (Manual) (test code = 11136-8) 16 40-74 L [facility] TomballLymphocytes % (Manual)2017-08-13 08:07:00 * Test Item Value Reference Range Interpretation Comments Lymphocytes % (Manual) (test code = 737-7) 78 19-48 H [facility] TomballMonocytes % (Manual)2017-08-13 08:07:00* Test Item Value Reference Range Interpretation Comments Monocytes % (Manual) (test code = 744-3) 2 3.4-9.0 L [facility] TomballEosinophils % (Manual)2017-08-13 08:07:00 * Test Item Value Reference Range Interpretation Comments Eosinophils % (Manual) (test code = 714-6) 2 0-7 [facility] TomballReactive Chrwcipzdhs8109-72-82 08:07:00* Test Item Value Reference Range Interpretation Comments Reactive Lymphocytes (test code = 16186-1) 1 [facility] TomballBlast Cells %2017-08-13 08:07:00* Test Item Value Reference Range Interpretation Comments Blast Cells % (test code = 44097-9) 1 [facility] TomballPlatelet Ntsxjpqc7861-45-40 08:07:00* Test Item Value Reference Range Interpretation Comments Platelet Estimate (test code = 88666-2) ADEQUATE [facility] TomballPlatelet Morphology Csskmsc1130-39-54 08:07:00* Test Item Value Reference Range Interpretation Comments Platelet Morphology Comment (test code = 77509-0) NORMAL [facility] TomballHypochromasia2018-01-12 08:07:00* Test Item Value Reference Range Interpretation Comments Hypochromasia (test code = 728-6) SLIGHT [facility] TomballAnisocytosis2018-01-12 08:07:00* Test Item Value Reference Range Interpretation Comments Anisocytosis (test code = 702-1) SLIGHT [facility] TomballRed Cell Morphology Ldgxlqq1859-16-09 08:07:00* Test Item Value Reference Range Interpretation Comments Red Cell Morphology Comment (test code = 6742-1) NORMAL [facility] TomballUrine Random Total Vbqclym9961-33-22 13:48:00* Test Item Value Reference Range Interpretation Comments Urine Random Total Protein (test code = 2888-6) 101.2 1-14 H [facility] TomballUrine Ncevhmugbg0287-15-09 13:48:00* Test Item Value Reference Range Interpretation Comments Urine Creatinine (test code = 2161-8) 58.66 63-166 L [facility] TomballUrine Creatinine 24 Dlsk3659-91-08 13:48:00* Test Item Value Reference Range Interpretation Comments Urine Creatinine 24 Hour (test code = 2162-6) 0229 983-4403 [facility] TomballCreatinine Jxiowemua7537-08-05 13:48:00* Test Item Value Reference Range Interpretation Comments Creatinine Clearance (test code = 09481-0) 17 95-145 L [facility] TomballUrine Total Protein 24 Jbxk4550-88-93 13:48:00* Test Item Value Reference Range Interpretation Comments Urine Total Protein 24 Hour (test code = 66170-6) 2074.6 50-1 00 H [facility] TomballUrine Collection Xvjr8872-89-35 13:47:00 * Test Item Value Reference Range Interpretation Comments Urine Collection Time (test code = 41379-6) 24 [facility] TomballUrine Total Utalnu3174-00-24 13:47:00* Test Item Value Reference Range Interpretation Comments Urine Total Volume (test code = 82196-0) 2050 800-2000 H [facility] TomballFerritin2018-01-10 11:03:00* Test Item Value Reference Range Interpretation Comments Ferritin (test code = 2276-4) 105.23 21.81-274.66 [facility] TomballMetamyelocytes %2017-08-11 07:27:00* Test Item Value Reference Range Interpretation Comments Metamyelocytes % (test code = 740-1) 1 0-0 H [facility] TomballPoikilocytosis2018-01-10 07:27:00* Test Item Value Reference Range Interpretation Comments Poikilocytosis (test code = 779-9) SLIGHT [facility] TomballPhosphorus Httba1493-07-78 17:34:00* Test Item Value Reference Range Interpretation Comments Phosphorus Level (test code = GHV1549) 4.0 2.3-4.7 [facility] TomballDirect Riolmyekr1602-71-57 17:34:00* Test Item Value Reference Range Interpretation Comments Direct Bilirubin (test code = 14133-6) 0.1 0.0-5.0 [facility] TomballPathology Consult Hkvlgavh8249-81-69 15:55:00* Test Item Value Reference Range Interpretation Comments Pathology Consult Specimen (test code = 46771-0) See comment PATH REVIEW: CBC and peripheral smear are reviewed. Agree w/ manual differential .The smear is showing Lymphocytosis w/ mostly dysplastic and no increased blasts .There is associated granulocytopenia w/ normocytic normochromic anemia.IMPRESSI ON: Chronic Lymphocytic LeukemiaReviewed by: Iesha Al [facility] Medical CenterInfluenza Virus Types A,B Sywjaej0949-75-92 11:35:00* Test Item Value Reference Range Interpretation Comments Influenza Virus Types A,B Antigen (test code = 13645-5) NEGATIVE NEGATIVE [facility] TomballCT ABDOMEN/PELVIS WO [place] [address] Patient Name: CHARLOTTE LANDA MR #: [id number] : 1940 Age/Sex: 76/M Req #: [id number] Adm Physician: STEVEN CHAN MD Ordered by: SANDRA AUSTIN, KAREL AUSTIN Report #: [id number] Location : [facility] Room/Bed: [place] [address] Procedure: [id number] CT/ CT ABDOMEN/PELVIS WO Exam Date: 08/10/17 [...] COPY TO: KAREL FLORES CHEST 2 VIEWS [place] [address] Patient Name: CHARLOTTE LANDA MR #: [id number] : 1940 Age/Sex: 76/M Req #: [id number] Adm Physician: Ordered by: TALIA BIRMINGHAM MD Report #: [id number] Location: ER Room/Bed: Procedure: [id number] DX/CHEST 2 VIEWS Exam Date: 04/19 Exam [...] TALIA BIRMINGHAM MD US RENAL RETROPERITONEAL COMP [place] [address] Patient Name: CHARLOTTE LANDA MR #: [id number] : 1940 Age/Sex: 76/M Req #: [id number] Adm Physician: STEVEN HAWKINS MD Ordered by: SANDRA AUSTIN, KAREL AUSTIN Report #: [id number] Location: [facility] Room/Bed: [place] [address] Procedure: [id number] US/ US RENAL RETROPERITONEAL COMP Exam Date: [...]
[2020-03-07] MEDS ORDERED: VANCOMYCIN 1GM/NS 250 ML 250 ML IV ONE ×2 (05:00→12:00)
--- NOTE | 2020-03-07 05:05 | Diagnostic Imaging Report ---
EXAMINATION: CHEST SINGLE (PORTABLE) INDICATION: dyspnea COMPARISON: Radiograph dated 01/15/2020 FINDINGS: Heart size is upper limits normal. Central pulmonary vascular congestion. Hazy and consolidative bibasilar opacities likely represent small pleural effusions with adjacent airspace disease. No pneumothorax. IMPRESSION: Small pleural effusions with adjacent atelectasis or pneumonia in the appropriate clinical setting. Signed by: Gustavo Bustamante MD on 03/07/2020 5:02 AM
[2020-03-07] MEDS ORDERED: NOREPINEPHRINE 8 MG/D5W 250 ML 250 ML ONE ×2 (05:11→10:46)
--- NOTE | 2020-03-07 05:12 | Diagnostic Imaging Report ---
X-ray right knee 2 views HISTORY: Pain. COMPARISON: Radiograph dated 12/02/2019 FINDINGS: No acute fracture or dislocation. Advanced tricompartment osteoarthrosis with near ryvx-iv-whii joint space loss, osteophyte formation, and subchondral sclerosis. Small suprapatellar effusion likely reactive to degenerative changes. No loose bodies within the infrapatellar recess. IMPRESSION: 1. No acute fracture or dislocation. 2. Advanced osteoarthrosis of the right knee, mildly progressed from 12/02/2019. Small to moderate suprapatellar effusion, likely reactive to degenerative changes, although septic joint is not excluded. Signed by: Gustavo Bustamante MD on 03/07/2020 5:08 AM
--- NOTE | 2020-03-07 05:20 | NUR ---
ER MD AND PRIMARY RN NOTIFIED AND AWARE OF CRITICAL LAB VALUE, LACTIC ACID 4.2.
--- NOTE | 2020-03-07 05:32 | History and Physical ---
REASON FOR ADMISSION: Sepsis, most likely secondary to septic right knee. HISTORY OF PRESENT ILLNESS: The patient is a 79-year-old gentleman, on end-stage renal disease, history of diabetes, also history of CLL, who presented with worsening right knee pain. The outpatient study showed negative for DVT. The pain intensified to the point he presented to the emergency room where initial laboratory data showed low blood pressure as well as elevated lactic acid, worrisome for possible sepsis as well as being pancytopenic with neutropenia. PAST MEDICAL HISTORY: CLL, anemia, end-stage renal disease, diabetes, hypertension, angioedema, septic right knee, still ongoing treatment. MEDICATIONS: See SEP. ALLERGIES: NONE. SOCIAL HISTORY: Nonsmoker and nondrinker. Lives at home. FAMILY HISTORY: Hypertension. PHYSICAL EXAMINATION: VITAL SIGNS: Temperature is 99.0, pulse 84, blood pressure 93/67, saturation is 98%. GENERAL: He is in no apparent distress, lying in bed. NECK: Supple. CARDIOVASCULAR: Regular rate and rhythm. LUNGS: Clear to auscultation bilaterally. ABDOMEN: Good bowel sounds. Soft, nontender. EXTREMITIES: No clubbing or cyanosis. His right knee is very swollen, warm to touch and tender. NEUROLOGIC: Nonfocal. ASSESSMENT: 1. Sepsis secondary to most likely septic right knee, so the patient has already been given a dose of Zosyn. We will give a dose of vancomycin and consult Infectious Disease as well as Dr. Rosenbaum. 2. Pancytopenia. We will consult Dr. Saleh, his oncologist. 3. Neutropenia. We will put him on neutropenic precautions. 4. End-stage renal disease. We will consult Dr. Sommer of Renal. 5. Diabetes with hyperglycemia. We will replace his sugars. Please see hospital chart for full details. MD MARIA D Best/MODL /[id number]
[2020-03-07] MEDS: NOREPINEPHRINE INJ 4MG/4ML 8 MG in DEXTROSE 5% 250ML 250 ML IV SCH ×2 (05:34→22:41)
--- NOTE | 2020-03-07 05:50 | NUR ---
Central line moved to right groin by Dr. Velasco due to left groin central line leaking an excessive amount of fluids.
[2020-03-07] MEDS ORDERED: DEXTROSE 5%/0.45% SOD CHL 1,000 ML IV SCH (06:00)
[2020-03-07] MEDS ORDERED: ACETAMINOPHEN 650 MG SUPP PR ONE ×2 (06:30→06:36)
--- NOTE | 2020-03-07 07:10 | NUR ---
Report to YAMINI Bahena
--- NOTE | 2020-03-07 08:30 | NUR ---
PRIOR TO TRANSFERING TO ICU PATIENT INCONTINENT OF SOFT BROWN STOOL. NOTED STAGE 2 TO COXYCC AREA, SKIN SHEARING. BUTTOCKS WITH EXCORIATION. WOUND COSULT PLACED
--- NOTE | 2020-03-07 09:40 | NUR ---
Pt with sudden decline to agonal breathing, trending decreasing blood pressures. Emergent intubation by Dr Miller during rapid response.
[2020-03-07] MEDS ORDERED: VASOPRESSIN INJ 20 UNIT/ML VIAL ONE (09:58)
[2020-03-07] MEDS ORDERED: SODIUM CHLORIDE 0.9% 100 ML ONE (09:59)
[2020-03-07] MEDS ORDERED: DEXTROSE 5% IV PRN (10:00)
[2020-03-07] MEDS ORDERED: VASOPRESSIN 60 UNIT in DEXTROSE 5% 50ML 60 ML IV PRN (10:00)
[2020-03-07] MEDS ORDERED: VASOPRESSIN IV PRN (10:00)
[2020-03-07] MEDS ORDERED: EPINEPHRINE HCL 1:1000 1ML 4 MG in DEXTROSE 5% 250ML 250 ML IV PRN (10:00)
[2020-03-07] MEDS ORDERED: SODIUM CHLORIDE 0.9% 1000ML 1,000 ML ONE (10:09)
[2020-03-07] MEDS ORDERED: EPINEPHRINE HCL SYRINGE ONE (10:09)
[2020-03-07] MEDS ORDERED: PROPOFOL IV EMULSION 10MG/ML 100 ML IV PRN (10:30)
[2020-03-07] MEDS: FENTANYL 2000MCG/NS 250 250 ML IV PRN ×2 (10:45→19:41)
[2020-03-07 11:05] LABS: BASOPHILS % 1.2 % (0.0-1.0); EOSINOPHILS % 4.7 % (0.0-6.0); HEMATOCRIT 25.3 % (38.2-49.6); HEMOGLOBIN 7.6 g/dL (14.0-18.0); LYMPHOCYTES # (AUTO) 0.3 (1.0-3.2); LYMPHOCYTES % 37.2 % (18.0-39.1); MEAN CORPUSCULAR HEMOGLOBIN 30.4 pg (28-32); MEAN CORPUSCULAR VOLUME 101.2 fL (81-99); MONOCYTES # (AUTO) 0.1 (0.2-0.8); MONOCYTES % 5.8 % (4.4-11.3); NEUTROPHILS # (AUTO) 0.4 (2.1-6.9); NEUTROPHILS % 51.1 % (38.7-80.0); RED CELL DISTRIBUTION WIDTH 18.3 % (11.7-14.4)
--- NOTE | 2020-03-07 11:10 | Diagnostic Imaging Report ---
EXAM: CHEST SINGLE (PORTABLE) DATE: 03/07/2020 10:16 AM INDICATION: Post intubation COMPARISON: Chest radiograph from earlier 03/07/2020 IMPRESSION Endotracheal tube identified with tip projecting towards the right mainstem bronchus. Recommend retraction by at least 4 cm. Again identified are hazy opacities with a lower lung zone predominance, unchanged from the prior examination. There is no evidence for pneumothorax or significant volume pleural effusion. The cardiomediastinal silhouette is stable in appearance. No acute osseous abnormality is identified. Signed by: Dr. Lefty Denis MD on 03/07/2020 11:07 AM
[2020-03-07 11:17] LABS: PLATELET COUNT 54 x10e3/uL (140-360)
[2020-03-07 11:19] LABS: ABG HCO3 17 mmol/L (22-26); ABG PCO2 28 mmHg (35-45); ABG PH 7.38 (7.35-7.45); ABG PO2 120 mmHg (80-105); ABG TCO2 18
[2020-03-07] MEDS ORDERED: SODIUM BICARBONATE 8.4% INJ 50 ML SYR IV STA (11:19)
[2020-03-07 11:35] LABS: ANION GAP 18.3 mmol/L (8-16); CREATININE, SERUM 4.59 mg/dL (0.72-1.25); MAGNESIUM 1.4 MG/DL (1.3-2.1); PHOSPHORUS 1.3 MG/DL (2.3-4.7); POTASSIUM 3.3 mmol/L (3.5-5.1)
[2020-03-07 11:45] LABS: CALCIUM 6.2 mg/dL (8.4-10.2)
[2020-03-07] MEDS ORDERED: SODIUM BICARBONATE 8.4% 150 ML in DEXTROSE 5% 1,000 ML IV SCH (12:00)
--- NOTE | 2020-03-07 13:03 | Consultation ---
DATE OF CONSULTATION: Critical Care Consultation REASON FOR CONSULT: ICU management. HISTORY OF PRESENT ILLNESS: Mr. Landa is a 79-year-old male, who presented to the emergency room with complaints of knee pain and was septic. He has a history of chronic lymphocytic leukemia. The patient's outpatient study showed negative for DVT. The pain intensified. He came to the emergency room. Currently, he is intubated, sedated, septic. The patient's white cell count is 1.37, hemoglobin 11.3, and platelets 75. He has end-stage renal disease and his creatinine is 4.59. Lactic acid is 6.3. Blood gas showed pH of 7.38, pCO2 of 28, and PO2 of 120. Coronavirus was not detected and was done on 03/07. Chest x-ray showed no pneumonia, just hazy opacity in the lower lung zone. REVIEW OF SYSTEMS: Unable to elicit any. The patient is intubated. PAST MEDICAL HISTORY: Chronic lymphocytic leukemia, end-stage renal disease, diabetes, hypertension, and septic right knee. FAMILY HISTORY: Hypertension. SOCIAL HISTORY: Never smoked. Never drank. Lives at home. PHYSICAL EXAMINATION: VITAL SIGNS: Temperature 100.8, pulse of 112, blood pressure 111/66, and respiratory rate of 18. LABORATORY DATA: White count of 0.86, hemoglobin 7.6, and platelets 54. Chemistry reviewed. The patient has received 3 L of bolus in the emergency room. ASSESSMENT/PLAN: Mr. Landa is a 79-year-old male with septic shock secondary to septic knee. PLAN: Continue the patient on IV vancomycin and Zosyn. We will give one dose of vancomycin. ID is on the case. The patient is septic and acidotic. I will start the patient on bicarb infusion until the patient is seen by Nephrology. Continue the patient on fentanyl for sedation. The patient's platelet count is 54 and hemoglobin is 7.6, hence cannot give the Lovenox for DVT prophylaxis. Blood cultures are pending. Vent setting reviewed. Increase the PEEP to 8. Continue the patient on FiO2 of 80%. Thank you for this consult. MD VALERIO Ruffin/ANTON /[id number]
--- NOTE | 2020-03-07 14:37 | NUR ---
Have called [facility] notified of new stat dialysis orders. Have reported to intake that daughter refuses to allow [place] RN to be allowed to dialyze pt.
[2020-03-07] MEDS ORDERED: DEXTROSE 50% SYRINGE 50 ML IV PRN (14:45)
[2020-03-07 14:58] LABS: CREATINE KINASE MB 6.4 ng/mL (0-5.0)
[2020-03-07] MEDS ORDERED: SODIUM PHOSPHATE 3 MMOL/ML INJ IV STA (15:21)
[2020-03-07] MEDS ORDERED: SODIUM CHLORIDE 0.9% 250ML 250 ML IV ONE (15:45)
[2020-03-07] MEDS ORDERED: CALCIUM GLUCONATE 10% INJ 4.65 MEQ in SODIUM CHLORIDE 0.9% 50ML 50 ML IV ONE (16:00)
[2020-03-07] MEDS ORDERED: MAGNESIUM SULFATE 2GM/50ML 50 ML IV ONE (16:00)
[2020-03-07] MEDS ORDERED: SODIUM PHOSPHATE 30 MMOL in SODIUM CHLORIDE 0.9% 250ML 250 ML IV ONE (17:00)
[2020-03-07] MEDS ORDERED: ACETAMINOPHEN 1000 MG/100 ML IV STA (17:01)
--- NOTE | 2020-03-07 17:06 | NUR ---
Dr Becerra notified of new temp 102 and pt is to receive blood. He gave order for IV acetaminophen and transfuse the blood.
[2020-03-07] MEDS ORDERED: SODIUM CHLORIDE 0.9% 1000ML 2,000 ML IV PRN (17:15)
[2020-03-07] MEDS ORDERED: ALBUMIN 25% 12.5GM 0.25 GM/ML BTL IV PRN (17:15)
[2020-03-07] MEDS ORDERED: SODIUM CHLORIDE 0.9% 1000ML 2,000 ML ONE (17:18)
--- NOTE | 2020-03-07 17:55 | Consultation ---
DATE OF CONSULTATION: 03/07/2020 HISTORY OF PRESENT ILLNESS: A 79-year-old gentleman with underlying history of end-stage renal disease, diabetes, multiple comorbidities, history of atrial fibrillation, peripheral vascular disease, came in severely septic and septic shock, intubated, currently on three pressors. Scheduled for dialysis. LABORATORY DATA: His labs show white count 0.86 with a hemoglobin of 7.6, and a platelet count of 54. Has chemistries which show sodium 137, potassium 3.3, bicarbonate 18 with a BUN 32, creatinine 4.5 with a calcium 6.2, phosphorus 1.3, magnesium 1.4. Blood sugar mostly recent was 56. Had a blood gas done shows pH of 7.38, pCO2 of 28, PO2 of 120, bicarbonate 17. He has had cultures drawn, results are pending. ALLERGIES: NO APPARENT DRUG ALLERGIES. PAST MEDICAL HISTORY: As above, history of diabetes, septic right knee, history of CLL, history of prior GI bleed, anemia, prior transfusions. The patient currently intubated. Unable to get review of systems due to medical condition. PHYSICAL EXAMINATION: VITAL SIGNS: Blood pressure 115 systolic, pulse rate 101, sinus tachycardia, and O2 saturation 98%. GENERAL: The patient is arousable, follows commands to some extent. HEAD AND NECK: No icterus. Orally intubated. LUNGS: Harsh vesicular breath sounds. Air entry good bilaterally. No rales. HEART: S1, S2 audible. ABDOMEN: Otherwise, soft, nontender. No apparent visceromegaly. EXTREMITIES: Lower extremity 1+ edema. CURRENT MEDICATIONS: Please see MAR for details. Currently on IV bicarbonate drip at 75 mL an hour, which I will decrease to 50 mL an hour given the patient's end-stage renal disease anuric status. Received gentamicin, received vancomycin this morning. On three pressors at this point in time. He is also on Tylenol p.r.n., Zofran p.r.n., fluids. FAMILY HISTORY: Positive for diabetes. SOCIAL HISTORY: Does not smoke or drink. IMPRESSION: Pancytopenia with drop in hemoglobin 11.3 to 7.6. Hypokalemic, acidotic with hypocalcemia, albumin of 2, hypophosphatemic, and hypomagnesemic. PLAN: Replacing electrolytes as transfuse packed RBC. I will discuss with ID and other services. Blood sugars noted. Discussed with bedside RN, magnesium phosphorus to be replaced. Please see orders. MD PÉREZ Alves/ANTON /[id number]
[2020-03-07] MEDS ORDERED: DEXTROSE 10% 1,000 ML IV SCH (18:30)
[2020-03-07] MEDS ORDERED: SODIUM CHLORIDE 0.9% 250ML 250 ML ONE (18:44)
[2020-03-07] MEDS ORDERED: SUCCINYLCHOLINE CHLORIDE 20 MG/ML 10ML VIAL ONE (19:24)
[2020-03-07] MEDS ORDERED: ETOMIDATE 2 MG/ML 10 ML INJ IV ONE (19:24)
[2020-03-07] MEDS ORDERED: GENTAMICIN 80MG/NS 100 ML 100 ML IV SCH (22:00)
--- NOTE | 2020-03-07 23:09 | Diagnostic Imaging Report ---
EXAMINATION: CHEST SINGLE (PORTABLE) INDICATION: ^ETT REPOSITIONED ^Y COMPARISON: Radiograph from today. FINDINGS: TUBES and LINES: Endotracheal tube tip is at the level of the sandra, directed towards the right mainstem bronchus. LUNGS: Bilateral hazy and patchy opacities with blunting of costophrenic angles. PLEURA: No pneumothorax. HEART AND MEDIASTINUM: Unchanged cardia mediastinal silhouette. BONES AND SOFT TISSUES: No acute osseous lesion. Soft tissues are unremarkable. IMPRESSION: 1. Endotracheal tube tip at the level of the sandra directed towards the right mainstem bronchus, similar to prior. Retraction by 3 cm is recommended. 2. Unchanged bibasilar hazy and patchy opacities concerning for multifocal pneumonia or edema with small pleural effusions. Signed by: Gustavo Bustamante MD on 03/07/2020 11:06 PM
--- NOTE | 2020-03-07 23:50 | NUR ---
Received handoff report from dayshift nurse at 1999. Pt was undergoing dialysis at the time, GCS 7, RASS 4, in soft wrist restraints for upper limbs. Drips confirmed and tubing labeled. Dialysis completed around 2300. 2L were taken off and 2 units of PRBCs were transfused. After dialysis pt is more calm and sedated with only fentanyl at 300mcg. Pt remains on vasopressin, levophed, and epi for BP support. Gentamicin now transfusing post dialysis. Positive BC called by lab, Gram +RODS. Dr. Becerra's office was called and message was left. (Per charge nurse, Dr. Becerra was the one to contact).
[2020-03-08] VITALS (7 sets, daily range): BP systolic 81–121; BP diastolic 56–70
[2020-03-08] MEDS: PIPER-TAZ 3.375 GM 50 ML IV SCH ×3 (01:25→06:00)
--- NOTE | 2020-03-08 02:50 | NUR ---
ABG Results: 7.36/38/146/22 O2 saturation unable to be confirmed with pulse oximeter on ears, forehead or limbs. Pt remains on vasopressors for BP support and although pt remains slightly febrile, limbs are cool to touch. Pulse oximeter goes in and out and remains unreliable. ABG results confirms pt is saturating well. EPI is now turned OFF. Levophed is now down to 10mcgs, vasopressin remains @0.07. Pt is now sedated with Fent @300 and propofol @5 Pts HR remains sinus tach, 120s. BP maintaining at MAP >70
[2020-03-08] MEDS: FENTANYL 2000MCG/NS 250 250 ML IV PRN (03:38)
[2020-03-08 03:46] LABS: ABG PCO2 38 mmHg (35-45); ABG PH 7.37 (7.35-7.45); ABG PO2 146 mmHg (80-105)
[2020-03-08 03:47] LABS: ABG HCO3 22 mmol/L (22-26); ABG TCO2 23
[2020-03-08] MEDS: NOREPINEPHRINE INJ 4MG/4ML 8 MG in DEXTROSE 5% 250ML 250 ML IV SCH (05:00)
[2020-03-08 05:33] LABS: BASOPHILS % 0.6 % (0.0-1.0); EOSINOPHILS # (AUTO) 0.2 (0.0-0.4); EOSINOPHILS % 3.1 % (0.0-6.0); HEMATOCRIT 36.3 % (38.2-49.6); HEMOGLOBIN 11.6 g/dL (14.0-18.0); LYMPHOCYTES # (AUTO) 0.9 (1.0-3.2); LYMPHOCYTES % 19.2 % (18.0-39.1); MEAN CORPUSCULAR HEMOGLOBIN 30.9 pg (28-32); MEAN CORPUSCULAR VOLUME 96.5 fL (81-99); MONOCYTES # (AUTO) 0.2 (0.2-0.8); MONOCYTES % 4.8 % (4.4-11.3); NEUTROPHILS # (AUTO) 3.4 (2.1-6.9); NEUTROPHILS % 70.8 % (38.7-80.0); RED BLOOD COUNT 3.76 x10e6/uL (4.3-5.7); RED CELL DISTRIBUTION WIDTH 20.9 % (11.7-14.4)
--- NOTE | 2020-03-08 05:45 | NUR ---
Provider, Dr. Cunha, at pt's bedside. Provider aware of ABG and status over night. Provider gives verbal order to titrate FIo2 from 85% to 70% due to ABG. Provider also aircraft de icer installer VO to give IV tylenol for fever greater than 101f. Currently pt is on levophed at 15mcg/min due to trending low MAP. Vasopressin remains at 0.07 and EPI remains off. Will report to oncoming care team.
[2020-03-08 07:47] LABS: ALBUMIN 1.1 g/dL (3.5-5.0); ALBUMIN/GLOBULIN RATIO 0.4 (0.8-2.0); ANION GAP 25.8 mmol/L (8-16); CREATININE, SERUM 3.06 mg/dL (0.72-1.25); POTASSIUM 4.8 mmol/L (3.5-5.1)
[2020-03-08 07:55] LABS: CALCIUM 6.5 mg/dL (8.4-10.2)
[2020-03-08 08:07] LABS: PLATELET COUNT 38 x10e3/uL (140-360)
--- NOTE | 2020-03-08 08:08 | Progress Note ---
DATE: SUBJECTIVE: The patient unfortunately after rounds yesterday became short of breath, requiring intubation as well as continued hypotension, that required vasopressor therapy. He did receive some bloody yesterday as well as dialysis with about 2 L removed and he was seen by multiple specialists. His blood cultures are starting to grow culture data, but he has been on antibiotics from admission. PHYSICAL EXAMINATION: VITAL SIGNS: He is 99.3, pulse 125, blood pressure 110/61 on vasopressors and sats 98% on 80% FiO2. GENERAL: He is sedated on the ventilator. CARDIOVASCULAR: Regular rate and rhythm. LUNGS: Decreased breath sounds bilaterally with some rhonchi noted bilaterally. ABDOMEN: Good bowel sounds. Soft and nontender. EXTREMITIES: Right knee is still warm to touch. Bilateral feet are cool to touch and mottled. NEUROLOGIC: He is sedated. ASSESSMENT AND PLAN: 1. Acute respiratory failure with hypoxia. Continue with ventilatory support and wean as tolerated per Pulmonary. 2. Septic shock. Continue with vasopressors, but also hopefully wean as tolerated. 3. Sepsis secondary to right knee. Continue with antibiotics per Infectious Disease and we will see what the culture data shows. 4. Anemia. We will check a CBC. 5. Thrombocytopenia. We will check a CBC. 6. Neutropenia. We will continue with current care. Hematology has been consulted, would defer to other providers due to his concerns for interacting COVID. 7. Hypokalemia. We will check a labs. Please see hospital chart for full details of this. Poor prognosis of patient. MD MARIA D Best/MODL /[id number]
[2020-03-08] MEDS ORDERED: NOREPINEPHRINE 8 MG/D5W 250 ML 250 ML ONE (09:46)
--- NOTE | 2020-03-08 09:52 | NUR ---
Attorney Lawyer responded to Code Blue and provided calming pastoral presence. Will follow as able. LEANN Pricelain Spiritual Care Department O: [phone]
--- NOTE | 2020-03-08 10:12 | Progress Note ---
DATE: Code Blue Note The patient has started desaturating with worsening hypotension. The patient lost his pulse. CPR was initiated. He was ventilated with an Ambu bag. He was given epinephrine 1 amp as well as 2 amps of bicarbonate. He subsequently regained his pulse. Dr. Blount arrived and assumed care. The patient subsequently lost his pulse again and CPR was re-initiated. He received another amp of epinephrine. He is also started on Levophed. Mckay Almanzar MD [facility]/MODL /[id number]
--- NOTE | 2020-03-08 10:15 | Diagnostic Imaging Report ---
EXAMINATION: CHEST SINGLE (PORTABLE) INDICATION: Septic shock COMPARISON: Chest radiograph 03/07/2020 FINDINGS: LINES/TUBES:Endotracheal tube terminates 2.5 cm above the sandra. EKG leads overlie the chest. LUNGS:The lungs are moderately inflated. There is perihilar fullness and indistinctness of the pulmonary vasculature. Unchanged hazy opacities. PLEURA:No pleural effusion or pneumothorax. MEDIASTINUM:The cardiomediastinal silhouette appears unchanged in size and shape. BONES/SOFT TISSUES:No acute osseous injury. ABDOMEN:No free air under the diaphragm. IMPRESSION: Endotracheal tube has been withdrawn and now terminates 2.5cm above the sandra. Otherwise, no significant interval change. Signed by: Alice Kee MD on 03/08/2020 10:11 AM
[2020-03-08 10:36] LABS: ABG HCO3 16 mmol/L (22-26); ABG PCO2 45 mmHg (35-45); ABG PO2 124 mmHg (80-105); ABG TCO2 17
[2020-03-08 10:39] LABS: ABG PH 7.16 (7.35-7.45)
[2020-03-08] MEDS ORDERED: PHENYLEPHRINE 10MG/ML VIAL 40 MG in DEXTROSE 5% 250ML 250 ML IV SCH (11:00)
[2020-03-08] MEDS ORDERED: SODIUM BICARBONATE 8.4% SYRING 150 ML in DEXTROSE 5% 1,000 ML IV SCH (11:00)
--- NOTE | 2020-03-08 11:59 | Progress Note ---
DATE: SUBJECTIVE: The patient is critically ill. When I walked in this morning, the patient was having cardiac arrest. We did the CPR for almost 10 minutes. He received epinephrine and bicarbonate push. The patient's pH this morning was 7.1, pCO2 of 44.7. He is in severe metabolic acidosis. REVIEW OF SYSTEMS: Unable to elicit. I was present during the CPR. PHYSICAL EXAMINATION: VITAL SIGNS: Temperature 99.3, pulse of 126, blood pressure 114/67, respiratory rate of 18. CHEST: Clear. HEART: S1-S2 audible. ABDOMEN: Soft. EXTREMITIES: Pedal edema, right leg from knee down is cold. Has no dorsalis pedis pulse. LABORATORY DATA: White count of 4.79, hemoglobin 11.6, platelets 38. Chemistry, reviewed. Blood gas; pH of 7.1, pCO2 of 44.7, PO2 of 124 . Two cultures are positive for Gram-negative bria. ASSESSMENT/PLAN: Mr. Landa is a 79-year-old male with septic shock initially with septic knee. Now, the patient has ischemic leg causing severe metabolic acidosis. PLAN: 1. The patient is critically ill. Overall prognosis is poor. I cannot start the heparin drip because of multiple history of GI bleed and platelet count is being 38. Detailed discussion was done with Dr. Montgomery. He will come and see the patient from Vascular Surgery standpoint and may need amputation. I also spoke to Dr. Almanzar from Cardiology. He will evaluate the patient for the ischemic leg and heart rhythm. 2. Continue the patient on IV antibiotics, vasopressors as needed to keep the MAP more than or equal to 65. Continue current vent setting. I will also start the patient on amiodarone infusion and also start the patient on bicarbonate drip. Critical care time spent 50 minutes. MD VALERIO Ruffin/ANTON /[id number]
--- NOTE | 2020-03-08 12:01 | NUR ---
ASSESSMENT: Spiritual distress Pt's daughter and at bedside. Pt's family experiencing anticipatory grief. Pt's daughter states they wanted to "give him a chance" but have decided to change his code status and have communicated their wishes with nursing staff because "he wouldn't want this" and wanted "him to go peacefully." Pt's family expressed emotions thru words and tears. Pt identifies as Confucianist. Intervention: Provided calming pastoral presence. Facilitated conversation w/ family about code status and anointing of the sick (aka last rites). Provided prayer. Outcome: Pt's family expressed appreciation for support. Will follow as able. LEANN NINO Academic Affairs Specialist Spiritual Care Department O: [phone]
--- NOTE | 2020-03-08 12:10 | NUR ---
PATIENT EXTUBATED TO ROOM AIR PER FAMILY WISHES AT THIS TIME
--- NOTE | 2020-03-08 12:32 | NUR ---
Noted pt's heart rate dropped on monitor, upon entering room noted patient in asystole at 0929. Code called. See code sheet. Pt sedated on vent. Rhythm returned to sinus tach in 120's and remained elevated. Cardiology in to see patient and family at bedside after permission granted. New orders given for labs and echo. Patient then went into complete heart block into 20's with 20-[address] Nehemias Almanzar at bedside. One amp of atropine given without effect at 1138. Patient's and a daughter brought to bedside. Family in agreement to stop all resuscitative measures and allow for natural . Family did not want CPR performed on patient again and would like for ETT to be removed. ETT removed and patient cleaned up. Family at bedside and patient noted to be apneic at 1232. Patient pronounced by ER physician at 1232. Family aware. Dr. Cunha aware. Addendum: 03/08/20 at 1525 by Malgorzata Bird RN Amended: Links added.
--- NOTE | 2020-03-08 16:37 | NUR ---
Patient released to [place] home per family request.
[2020-03-08] MEDS ORDERED: EPINEPHRINE HCL SYRINGE ONE (17:08)
[2020-03-08] MEDS ORDERED: SODIUM CHLORIDE FLUSH 10 ML SYR ONE (17:08)
[2020-03-08] MEDS ORDERED: ATROPINE SULFATE 0.1 MG/ML 10ML SYR ONE (17:08)
[2020-03-08] MEDS ORDERED: SODIUM BICARBONATE ONE (17:08)
[2020-03-08] MEDS ORDERED: DEXTROSE 50% SYRINGE 50 ML IV ONE (17:08)
--- NOTE | 2020-03-08 17:41 | Consultation ---
DATE OF CONSULTATION: HISTORY OF PRESENT ILLNESS: Ms. Landa is a 79-year-old male, who has history of end-stage renal disease, who had infection in his knee on antibiotic and hemodialysis, comes in with altered mental status. The patient is intubated, sedated. He is alert, follows command, has no complaints. I was asked to see him. Apparently, he missed dialysis yesterday and today he is doing well. Came in, he was intubated. He is currently on Zosyn and vancomycin. LABORATORY DATA: His blood culture is still pending. His white count when he first came was 1.36, came back to 0.86. His hemoglobin is 7.6. His creatinine 4.59. PHYSICAL EXAMINATION: GENERAL: He is currently alert, on a ventilator. HEENT: He is not icteric. NECK: Supple. CHEST: Crackles. HEART: S1, S2. No murmurs. ABDOMEN: Soft. Bowel sounds present. EXTREMITIES: No edema. SKIN: No rash. IMPRESSION: Sepsis on admission, neutropenic fever, renal failure. Continue Zosyn. We will add gentamicin. Continue vancomycin. Daily CBC. Daily Chem panel. Await blood cultures. Await urine cultures. Zosyn 2.25 IV q.8, vanc 500 after each hemodialysis. We will follow. MD ALBERT Grossman/ANTON /[id number]
== END 2020-03-08 16:36 | disposition expired | DRG 871 ==
LOC: ER 02:58 → ERHOLD 03:13 → ICU 08:59
PROVIDERS: ADMIT Internal Medicine; ATTEND Internal Medicine
PROC: 0BH17EZ Insertion of Endotracheal Airway into Trachea, Via Natural or Artificial Opening (ICD-10-PCS; principal; 2020-03-07)
PROC: 5A1935Z Respiratory Ventilation, Less than 24 Consecutive Hours (ICD-10-PCS; 2020-03-07)
PROC: 02HV33Z Insertion of Infusion Device into Superior Vena Cava, Percutaneous Approach (ICD-10-PCS; 2020-03-07)
PROC: B548ZZA Ultrasonography of Superior Vena Cava, Guidance (ICD-10-PCS; 2020-03-07)
PROC: 3E043XZ Introduction of Vasopressor into Central Vein, Percutaneous Approach (ICD-10-PCS; 2020-03-07)
PROC: 30233N1 Transfusion of Nonautologous Red Blood Cells into Peripheral Vein, Percutaneous Approach (ICD-10-PCS; 2020-03-07)
PROC: 5A12012 Performance of Cardiac Output, Single, Manual (ICD-10-PCS; 2020-03-08)
DX: A41.9 Sepsis, unspecified organism (principal); N18.6 End stage renal disease; R65.21 Severe sepsis with septic shock; J96.01 Acute respiratory failure with hypoxia; D61.818 Other pancytopenia; E87.2 Acidosis; I13.2 Hypertensive heart and chronic kidney disease with heart failure and with stage 5 chronic kidney disease, or end stage renal disease; M00.861 Arthritis due to other bacteria, right knee; E11.65 Type 2 diabetes mellitus with hyperglycemia; E87.6 Hypokalemia; E11.22 Type 2 diabetes mellitus with diabetic chronic kidney disease; I50.9 Heart failure, unspecified; D64.9 Anemia, unspecified; Z86.711 Personal history of pulmonary embolism; Z86.718 Personal history of other venous thrombosis and embolism; Z99.2 Dependence on renal dialysis; E11.649 Type 2 diabetes mellitus with hypoglycemia without coma; Z85.6 Personal history of leukemia; Z82.49 Family history of ischemic heart disease and other diseases of the circulatory system; I48.91 Unspecified atrial fibrillation; I73.9 Peripheral vascular disease, unspecified; Z83.3 Family history of diabetes mellitus; E83.51 Hypocalcemia; E83.39 Other disorders of phosphorus metabolism; E83.42 Hypomagnesemia; R50.81 Fever presenting with conditions classified elsewhere; D70.9 Neutropenia, unspecified; Z11.59 Encounter for screening for other viral diseases
CPT/HCPCS: 31500; 36415; 36555; 36600; 71045; 80048; 80053; 82550; 82553; 82805; 82948; 83605; 83690; 83735; 83880; 84100; 84484; 85025; 86704; 86705; 86706; 86850; 86900; 86920; 87040; 87071; 87186; 87205; 92950; 93005; 94002; 94003; 96361; 99285; J0171; J0330; J0610; J1580; J2370; J2405; J2543; J3370; J3475; J7030; J7040; J7050; J7070; J7799; P9016; U0002